=== PATIENT | female | born 1940 | race Hispanic/Latino ===

== ENCOUNTER 2018-07-06 21:21 | Emergency (ER) | payer MEDICARE ==
[2018-07-06 22:27] LABS: Urine Blood NEGATIVE (NEG); Urine Glucose NEGATIVE (NEG); Urine Protein NEGATIVE (NEG); Urine Specific Gravity >1.030 (1.005-1.030); Urine pH 5.5 (5.0-7.0)
[2018-07-06 22:50] LABS: Absolute Lymphocytes (CBC) 1.8 K/uL (0.7-4.9); Absolute Monocytes 0.4 K/uL (0.1-1.3); Absolute Neutrophil 3.3 K/uL (1.8-8.0); Basophils % 0.3 % (0-1.3); Eosinophils % 4.4 % (0-4.4); Hematocrit 40.7 % (36.0-45.0); Lymphocytes % 30.9 % (15.3-44.8); MPV 9.5 fL (7.6-11.3); Monocytes % 6.5 % (3.3-12.3); Protime INR 0.97; RBC Red Blood Cell Count 4.87 M/uL (3.86-4.86)
[2018-07-06] MEDS ORDERED: ASPIRIN 81 MG CHEWABLE TABLET ONE (22:54)
[2018-07-06 23:12] LABS: ALT/SGPT 16 U/L (12-78); AST/SGOT 14 U/L (15-37); Albumin 3.8 g/dL (3.4-5.0); Alkaline Phosphatase 72 U/L (45-117); BUN Blood Urea Nitrogen 22 mg/dL (7-18); Bicarbonate 24 mmol/L (21-32); Bilirubin Direct 0.2 mg/dL (0-0.2); Bilirubin Total 0.5 mg/dL (0.2-1.0); Glucose Level 111 mg/dL (74-106); Magnesium 2.1 mg/dL (1.8-2.4); NT PRO-BNP 183 pg/mL (<450); Protein, Total 7.3 g/dL (6.4-8.2); Sodium Level 143 mmol/L (136-145); Troponin (Emerg Dept Use Only) < 0.02 ng/mL (0.0-0.045)
--- NOTE | 2018-07-07 00:13 | EDPHYS ---
Physician Documentation [facility] Name: Ruthie Smith Age: 77 yrs Sex: Female : 1940 Arrival Date: 07/06/2018 Time: 21:23 Bed 17 Private MD: Zeyad Ma C ED Physician Ronal Reece HPI: 07/06 22:36 This 77 yrs old Female presents to ER via Ambulatory with complaints of Flank snw Pain - radiating to one side to other. 22:36 The patient complains of pain in the left subscapular area and right subscapular area. snw The pain does not radiate. Onset: The symptoms/episode began/occurred suddenly, just prior to arrival. Associated signs and symptoms: Pertinent positives: nausea, shortness of breath. Severity of pain: At its worst the pain was moderate severe. The patient has not experienced similar symptoms in the past. It is unknown whether or not the patient has recently seen a physician. pt states she was in her shower and had a sudden onset of pain under bilateral breast, through to back and shortness of breath. Historical: - Allergies: 21:40 Azithromycin; ch 21:40 Codeine; ch 21:40 Levofloxacin; ch 21:40 Vicodin; ch - PMHx: 21:40 Hypertension; Thyroid problem; COPD; sepsis-uro; urinary; UTI; ch - Immunization history:: Adult Immunizations up to date, Flu vaccine is up to date. - Social history:: Smoking status: Patient/guardian denies using tobacco. - Ebola Screening: : Patient negative for fever greater than or equal to 101.5 degrees Fahrenheit, and additional compatible Ebola Virus Disease symptoms Patient denies exposure to infectious person Patient denies travel to an Ebola-affected area in the 21 days before illness onset No symptoms or risks identified at this time. ROS: 22:36 Constitutional: Negative for fever, chills, and weight loss, Eyes: Negative for injury, snw pain, redness, and discharge, ENT: Negative for injury, pain, and discharge, Neck: Negative for injury, pain, and swelling, Cardiovascular: Negative for chest pain, palpitations, and edema. 22:36 : Negative for injury, bleeding, discharge, and swelling, MS/Extremity: Negative for injury and deformity, Skin: Negative for injury, rash, and discoloration, Neuro: Negative for headache, weakness, numbness, tingling, and seizure. 22:36 Respiratory: Positive for shortness of breath, at rest. 22:36 Abdomen/GI: Positive for abdominal pain, nausea, severe pain circumferential upper abdominal pain. 22:36 Back: Positive for radiated pain. Exam: 22:39 Head/Face: Normocephalic, atraumatic. Eyes: Pupils equal round and reactive to light, snw extra-ocular motions intact. Lids and lashes normal. Conjunctiva and sclera are non-icteric and not injected. Cornea within normal limits. Periorbital areas with no swelling, redness, or edema. ENT: Nares patent. No nasal discharge, no septal abnormalities noted. Tympanic membranes are normal and external auditory canals are clear. Oropharynx with no redness, swelling, or masses, exudates, or evidence of obstruction, uvula midline. Mucous membranes moist. Neck: Trachea midline, no thyromegaly or masses palpated, and no cervical lymphadenopathy. Supple, full range of motion without nuchal rigidity, or vertebral point tenderness. No Meningismus. Chest/axilla: Normal chest wall appearance and motion. Nontender with no deformity. No lesions are appreciated. Cardiovascular: Regular rate and rhythm with a normal S1 and S2. No gallops, murmurs, or rubs. Normal PMI, no JVD. No pulse deficits. Respiratory: Lungs have equal breath sounds bilaterally, clear to auscultation and percussion. No rales, rhonchi or wheezes noted. No increased work of breathing, no retractions or nasal flaring. Abdomen/GI: Soft, non-tender, with normal bowel sounds. No distension or tympany. No guarding or rebound. No evidence of tenderness throughout. Back: No spinal tenderness. No costovertebral tenderness. Full range of motion. Skin: Warm, dry with normal turgor. Normal color with no rashes, no lesions, and no evidence of cellulitis. MS/ Extremity: Pulses equal, no cyanosis. Neurovascular intact. Full, normal range of motion. Neuro: Awake and alert, GCS 15, oriented to person, place, time, and situation. Cranial nerves II-XII grossly intact. Motor strength 5/5 in all extremities. Sensory grossly intact. Cerebellar exam normal. Normal gait. 22:39 Constitutional: The patient appears alert, anxious. Vital Signs: 21:40 BP 103 / 76; Pulse 81; Resp 22; Temp 98.6; Pulse Ox 99% on R/A; Weight 90.72 kg; Height ch 5 ft. 7 in. (170.18 cm); Pain 6/10; 23:00 BP 118 / 64; Pulse 74; Resp 15; Pulse Ox 99% ; Pain 5/10; rr5 07/07 00:00 BP 110 / 62; Pulse 79; Resp 15; Pulse Ox 100% on R/A; Pain 2/10; rr5 00:59 BP 118 / 60; Pulse 81; Resp 17; Temp 98.9; Pulse Ox 99% on R/A; rr5 07/06 21:40 Body Mass Index 31.32 (90.72 kg, 170.18 cm) ch MDM: 07/06 22:05 Patient medically screened. snw 07/07 00:14 Data reviewed: vital signs, nurses notes. Data interpreted: Pulse oximetry: on room air snw is 99 %. Interpretation: normal. Counseling: I had a detailed discussion with the patient and/or guardian regarding: the historical points, exam findings, and any diagnostic results supporting the discharge/admit diagnosis, lab results, radiology results, the need for outpatient follow up, to return to the emergency department if symptoms worsen or persist or if there are any questions or concerns that arise at home. Special discussion: Based on the history and exam findings, there is no indication for further emergent testing or inpatient evaluation. I discussed with the patient/guardian the need to see the primary care provider for further evaluation of the symptoms. I discussed with the patient/guardian the need to see the design editor for further evaluation of the symptoms. 07/06 21:51 Order name: Basic Metabolic Panel snw 07/06 21:51 Order name: CBC with Diff w 07/06 21:51 Order name: LFT's snw 07/06 21:51 Order name: Magnesium; Complete Time: 23:14 snw 07/06 21:51 Order name: NT PRO-BNP; Complete Time: 23:14 snw 07/06 21:51 Order name: PT-INR; Complete Time: 23:09 snw 07/06 21:51 Order name: Troponin (emerg Dept Use Only); Complete Time: 23:14 snw 07/06 21:51 Order name: XRAY Chest (1 view) snw 07/06 21:51 Order name: Blood Culture Adult (2) snw 07/06 21:53 Order name: Basic Metabolic Panel; Complete Time: 23:14 EDMS 07/06 21:53 Order name: CBC with Automated Diff; Complete Time: 23:09 EDMS 07/06 21:53 Order name: Liver (Hepatic) Function; Complete Time: 23:14 EDID 07/06 22:13 Order name: Urine Dipstick--Ancillary (enter results); Complete Time: 22:30 co5 07/06 23:11 Order name: CT Chest For PE Angio snw 07/06 21:51 Order name: EKG; Complete Time: 21:54 snw 07/06 21:51 Order name: Cardiac monitoring; Complete Time: 22:42 w 07/06 21:51 Order name: EKG - Nurse/Tech; Complete Time: 22:42 w 07/06 21:51 Order name: IV Saline Lock; Complete Time: 22:42 w 07/06 21:51 Order name: Labs collected and sent; Complete Time: 22:43 w 07/06 21:51 Order name: O2 Per Protocol; Complete Time: 22:43 w 07/06 21:51 Order name: O2 Sat Monitoring; Complete Time: 22:43 w 07/06 22:10 Order name: Urine Dipstick-Ancillary (obtain specimen); Complete Time: 22:10 rr5 Administered Medications: 07/06 22:50 Drug: Aspirin Chewable Tablet 324 mg Route: PO; rr5 07/07 00:00 Follow up: Response: No adverse reaction rr5 00:32 Drug: Rocephin 1 grams Route: IV; Rate: calculated rate; Site: right forearm; rr5 01:01 Follow up: Response: No adverse reaction; IV Status: Completed infusion; IV Intake: [id number] Disposition: 01:13 Co-signature as Attending Physician, oRnal Reece MD. rn Disposition: 07/07/18 00:12 Discharged to Home. Impression: Alveolitis. - Condition is Stable. - Discharge Instructions: Pneumonitis. - Prescriptions for cefdinir 300 mg Oral capsule - take 2 capsule by ORAL route once daily; 20 capsule. - Medication Reconciliation Form, Thank You Letter, Antibiotic Education, Prescription Opioid Use form. - Follow up: Zeyad Ma MD; When: 2 - 3 days; Reason: Recheck today's complaints, Continuance of care, Re-evaluation by your physician. Follow up: Emergency Department; When: As needed; Reason: Worsening of condition. Signatures: Dispatcher [employer] EDMS Savannah So RN RN Yary Hinson, DIRECTOR EMPLOYEE COMMUNICATIONS-C DIRECTOR EMPLOYEE COMMUNICATIONS-Csnw Ronal Reece MD MD rn Roque, Raymond, RN RN rr5 Corrections: (The following items were deleted from the chart) 01:01 00:12 07/07/2018 00:12 Discharged to Home. Impression: Alveolitis. Condition is Stable. rr5 Forms are Medication Reconciliation Form, Thank You Letter, Antibiotic Education, Prescription Opioid Use. Follow up: Zeyad Ma; When: 2 - 3 days; Reason: Recheck today's complaints, Continuance of care, Re-evaluation by your physician. Follow up: Emergency Department; When: As needed; Reason: Worsening of condition. snw
--- NOTE | 2018-07-07 00:13 | ER ---
Nurse's Notes [facility] Name: Ruthie Smith Age: 77 yrs Sex: Female : 1940 Arrival Date: 07/06/2018 Time: 21:23 Bed 17 Private MD: Zeyad Ma C Diagnosis: Alveolitis Presentation: 07/06 21:38 Presenting complaint: Patient states: pain on my sides, both of them, radiating around ch under my breasts and to my back. started a couple hours ago. Transition of care: patient was not received from another setting of care. Onset of symptoms was July 06, 2018 at 19:00. Risk Assessment: Do you want to hurt yourself or someone else? Patient reports no desire to harm self or others. Initial Sepsis Screen: Does the patient meet any 2 criteria? No. Patient's initial sepsis screen is negative. Does the patient have a suspected source of infection? No. Patient's initial sepsis screen is negative. Care prior to arrival: None. 21:38 Method Of Arrival: Ambulatory 21:38 Acuity: TOLU 3 ch Triage Assessment: 21:40 General: Appears in no apparent distress. comfortable, Behavior is calm, cooperative, ch appropriate for age. Pain: Complains of pain in chest, posterior aspect of right lateral abdomen, anterior aspect of right lateral abdomen, posterior aspect of left lateral abdomen, anterior aspect of left lateral abdomen, right upper quadrant and left upper quadrant Pain currently is 6 out of 10 on a pain scale. Historical: - Allergies: 21:40 Azithromycin; ch 21:40 Codeine; ch 21:40 Levofloxacin; 21:40 Vicodin; ch - PMHx: 21:40 Hypertension; Thyroid problem; COPD; sepsis-uro; urinary; UTI; ch - Immunization history:: Adult Immunizations up to date, Flu vaccine is up to date. - Social history:: Smoking status: Patient/guardian denies using tobacco. - Ebola Screening: : Patient negative for fever greater than or equal to 101.5 degrees Fahrenheit, and additional compatible Ebola Virus Disease symptoms Patient denies exposure to infectious person Patient denies travel to an Ebola-affected area in the 21 days before illness onset No symptoms or risks identified at this time. Screenin:41 Abuse screen: Denies threats or abuse. Denies injuries from another. Nutritional rr5 screening: No deficits noted. Tuberculosis screening: No symptoms or risk factors identified. Fall Risk None identified. Assessment: 21:40 General: Appears in no apparent distress. uncomfortable, Behavior is calm, cooperative, rr5 appropriate for age. 21:40 Pain: Complains of pain in abdomen Pain radiates to back Pain currently is 7 out of 10 rr5 on a pain scale. Quality of pain is described as aching, Pain began gradually, Is intermittent. Neuro: Level of Consciousness is awake, alert, obeys commands, Oriented to person, place, time, situation, Appropriate for age. Cardiovascular: Capillary refill < 3 seconds Patient's skin is warm and dry. Respiratory: Airway is patent Respiratory effort is even, unlabored, Respiratory pattern is regular, symmetrical. GI: Abdomen is round Reports upper abdominal pain, radiates to back. : No signs and/or symptoms were reported regarding the genitourinary system. EENT: No signs and/or symptoms were reported regarding the EENT system. Derm: Skin is intact, Skin temperature is warm. Musculoskeletal: Capillary refill < 3 seconds, Range of motion: intact in all extremities. 23:00 Reassessment: Patient appears in no apparent distress at this time. Patient is alert, rr5 oriented x 3, equal unlabored respirations, skin warm/dry/pink. Patient states symptoms have improved. 23:35 Reassessment: Patient appears in no apparent distress at this time. Patient is alert, rr5 oriented x 3, equal unlabored respirations, skin warm/dry/pink. went to CT scan. 07/07 00:00 Reassessment: Patient appears in no apparent distress at this time. Patient is alert, rr5 oriented x 3, equal unlabored respirations, skin warm/dry/pink. awaiting for Ct result. 00:57 Reassessment: Patient appears in no apparent distress at this time. Patient is alert, rr5 oriented x 3, equal unlabored respirations, skin warm/dry/pink. discharge instruction given and explained without complaints made. Vital Signs: 07/06 21:40 BP 103 / 76; Pulse 81; Resp 22; Temp 98.6; Pulse Ox 99% on R/A; Weight 90.72 kg; Height ch 5 ft. 7 in. (170.18 cm); Pain 6/10; 23:00 BP 118 / 64; Pulse 74; Resp 15; Pulse Ox 99% ; Pain 5/10; rr5 07/07 00:00 BP 110 / 62; Pulse 79; Resp 15; Pulse Ox 100% on R/A; Pain 2/10; rr5 00:59 BP 118 / 60; Pulse 81; Resp 17; Temp 98.9; Pulse Ox 99% on R/A; rr5 07/06 21:40 Body Mass Index 31.32 (90.72 kg, 170.18 cm) ED Course: 07/06 21:23 Patient arrived in ED. am2 21:23 Zeyad Ma MD is Private Physician. am2 21:32 Steven Greene, MARIO is Primary Nurse. rr5 21:39 Triage completed. ch 21:40 Arm band placed on left wrist. Patient placed in an exam room, on a stretcher, on pulse ch oximetry. 21:50 Yary Berrios FNP-C is PHCP. snw 21:50 Ronal Reece MD is Attending Physician. snw 22:00 Patient has correct armband on for positive identification. Placed in gown. Bed in low rr5 position. Call light in reach. Side rails up X2. youth agent on. Pulse ox on. NIBP on. 22:13 XRAY Chest (1 view) In Process Unspecified. EDMS 22:30 Inserted saline lock: 22 gauge in right forearm, using aseptic technique. Blood rr5 collected. 22:30 Initial lab(s) drawn, by me, sent to lab. First set of blood cultures drawn by me. rr5 07/07 00:11 Zeyad Ma MD is Referral Physician. snw 00:14 CT Chest For PE Angio In Process Unspecified. EDMS 00:59 No provider procedures requiring assistance completed. IV discontinued, intact, rr5 bleeding controlled, No redness/swelling at site. Pressure dressing applied. Administered Medications: 07/06 22:50 Drug: Aspirin Chewable Tablet 324 mg Route: PO; rr5 07/07 00:00 Follow up: Response: No adverse reaction rr5 00:32 Drug: Rocephin 1 grams Route: IV; Rate: calculated rate; Site: right forearm; rr5 01:01 Follow up: Response: No adverse reaction; IV Status: Completed infusion; IV Intake: [id number] Intake: 01:01 IV: 10ml; Total: 10ml. rr5 Outcome: 00:12 Discharge ordered by . snw 00:59 Discharged to home ambulatory, with family. rr5 00:59 Condition: stable 00:59 Discharge instructions given to patient, family, Instructed on discharge instructions, follow up and referral plans. medication usage, Demonstrated understanding of instructions, follow-up care, medications, Prescriptions given X 1. 01:01 Patient left the ED. rr5 Signatures: Dispatcher [employer] EDSavannah Corea, RN RN Yary Berrios, SENIOR INFORMATION SECURITY ENGINEER-C SENIOR INFORMATION SECURITY ENGINEER-Csnw Farrah Fatima Raymond, RN RN rr5
[2018-07-07] MEDS ORDERED: CEFTRIAXONE/SWI 1gm 1 GM/10 ML SYR ONE (00:40)
[2018-07-07 01:16] VITALS: BP 118/60; TEMP 98.9; O2SAT 99
--- OUTSIDE RECORDS SUMMARY | 2018-07-07 12:39 | XMS REPORT ---
:1940 [facility] Address [address] [place] [address] [address] [place] [address] Care Team Providers Name Role Phone Unavailable Unavailable Unavailable Problems This patient has no known problems. Allergies, Adverse Reactions, Alerts This patient has no known allergies or adverse reactions. Medications This patient has no known medications.
--- NOTE | 2018-07-07 13:08 | RAD REPORT ---
EXAM DESCRIPTION: CT - Chest For Pe Angio - 07/07/2018 11:43 am CLINICAL HISTORY: Chest pain COMPARISON: None. TECHNIQUE: Dynamically enhanced axial 3 mm thick images of the chest were obtained during administra tion of <100> mL Isovue 370 IV contrast. Coronal and oblique reconstruction images were generated and reviewed. Exam utilizes a protocol for optimal evaluation of pulmonary arterial tree. Maximum intensity projections 3D imaging was utilized All CT scans are performed using dose optimization technique as appropriate and may include automated exposure control or mA/KV adjustment according to patient size. FINDINGS: A pulmonary embolus is not seen. The main pulmonary artery is enlarged A thoracic aortic aneurysm is not noted. A pleural effusion is not seen. A pericardial effusion is not seen. Mild bilateral ground-glass opacities within the lungs. IMPRESSION: Negative for a pulmonary embolism. 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
--- NOTE | 2018-07-08 08:42 | EKG ---
Test Date: 2018-07-06 Test Time: 22:04:48 Balance Sheet Analyst: RR MEASUREMENT RESULTS: Intervals: Rate: 84 NM: 166 QRSD: 90 QT: 394 QTc: 465 [place]: P: 18 NM: 166 QRS: 100 T: 64 INTERPRETIVE STATEMENTS: Normal sinus rhythm Possible Left atrial enlargement Rightward axis Anterior infarct, age undetermined Abnormal ECG Compared to ECG 11/26/2015 07:34:28 Right-axis deviation now present Left-axis deviation no longer present Myocardial infarct finding still present Electronically Signed On 07-08-18 08:40:30 CDT by Bud Anderson
--- NOTE | 2018-07-08 11:00 | RAD REPORT ---
EXAM DESCRIPTION: Kalpana Single View07/07/2018 11:43 am CLINICAL HISTORY: Chest pain COMPARISON: 2015 FINDINGS: Mild bilateral pulmonary opacities. Heart is mildly enlarged IMPRESSION: Mild bilateral pulmonary opacities may represent mild interstitial pulmonary edema
== END 2018-07-07 01:01 | disposition home or self-care (01) ==
LOC: ER 21:21
DX: J67.9 Hypersensitivity pneumonitis due to unspecified organic dust (principal); Z88.6 Allergy status to analgesic agent; Z88.1 Allergy status to other antibiotic agents
CPT/HCPCS: 96365; 93005; 87040 ×2; 85025; 80048; 36415; 83735; 85610; 80076; 81003; 84484; 83880; 71275; 71045; 99284; Q9967; J0696

== ENCOUNTER 2020-01-30 00:04 | Emergency (ER) | payer MEDICARE ==
--- OUTSIDE RECORDS SUMMARY | 2020-01-30 00:06 | XMS REPORT | Continuity of Care Document ---
:1940 Author Organization [facility] t Address [address] [place] [address] Care Team Providers Name Role Phone Doctor Unassigned, Name Attending Clinician Unavailable Mary WHITLOCK Attending Clinician Problems Condition Condition Condition Status Onset Resolution Last Treating Co mments Source Name Details Category Date Date Treatment Clinician Date Recurrent Recurrent Diagnosis Active [facility] UTI [facility]TI [facility] - (urinary (urinary Memori a tract tract l infection) infection) [facility] Clinics Stress Stress Diagnosis Active [facility] incontin[facility] incontinen Ruby kes - ce ce [facility] l [facility] Clinics Allergies, Adverse Reactions, Alerts Allergy Allergy Status Severity Reaction(s) Onset Inactive Treating Comm ents Source Name Type Date Date Clinician Vicodin Adverse Active Info Not [facility] Reaction Available [facility] Levaquin Adverse Active rash [facility] Reaction [facility] Azithrom Adverse Active Info Not [facility] ycin Reaction Available [facility] codeine Adverse Active Info Not [facility] Reaction Available [facility] Medications Ordered Filled Start Stop Current Ordering Indication Dosage Frequency Signature Comments Components Source Medication Medication Date Date Medication? Clinician (SIG) Name Name Nitrofurant Nitrofurant 2020-0 2020- No [place] [address] [facility] oin Monohyd oin Monohyd 7-27 10-25 [place] at bedtime [facility] - Macro Macro 00:00: 00:00 with food Memor ia 00 :00 l [facility] Clinics Vitamin B Vitamin B Yes [place] as [facility] 12 12 [place] directed [facility] - [facility]ics Boniva Boniva Yes [place] [address] [facility] [place] [facility] Dexilant Dexilant Yes [place] [address] [place] [facility] Caltrate Caltrate Yes [place] [address] 600+D3 600+D3 [place] with a [facility] - meal Memoria l [facility]ics Levothyroxi Levothyroxi Yes [place] [address] [facility] ne Sodium ne Sodium [place] in the [facility] - morning on Memoria an empty l stomach [facility]ics Rosuvastati Rosuvastati Yes [place] [address] [facility] n Calcium n Calcium [place]ireille L ukes - Memoria l [facility] ent Clinics Nitrofurant Nitrofurant Yes [place] [address] oin oin [place] with food [facility] - Macrocrysta Macrocrysta or milk Memoria l l l [facility] Clinics Advair Advair Yes [place] [address] [address] Diskus Diskus [place] [facility] Clinics Procedures This patient has no known procedures. Encounters Start End Encounter Admission Attending Care Care Encounter Source Date/Time Date/Time Type Type Clinicians Facility Department ID 2019-09-04 2019-09-04 Outpatient Juan Manuel Lilly [id number] [facility] 15:45:00 15:45:00 t Specialty/U Ruby kes - Specialty rology [facility] a /Urology Clinic l Clinic [facility] 2019-04-27 2019-04-27 Outpatient Juan Manuel Zambranot [id number] [facility] 09:30:00 09:30:00 t Specialty/U Ruby kes - Specialty rology [facility] a /Urology Clinic l Clinic [facility] 2019-04-27 2019-04-27 Orders Doctor BAUGH [id number] 00:00:00 00:00:00 Only UnassMARGI alva [id number] Lithium [facility] [id number] 2019-04-21 2019-04-21 Telephone EZEQUIEL Hernandez [id number] 00:00:00 00:00:00 Reji SPECIALTY [id number] CARE [id number] CENTER AT [id number] JOSELYN Gonzalez8 [facility] 2019-04-20 2019-04-20 Office EZEQUIEL Hernandez [id number] 08:05:41 09:17:43 Visit Reji SPECIALTY [id number] CARE [id number] CENTER AT [id number] JOSELYN Hill [facility] 2019-03-27 2019-03-27 Orders Doctor LUPIS [id number] 00:00:00 00:00:00 Only Unassigned, MARGI [id number] Lithium [facility] [id number] Results This patient has no known results.
[2020-01-30] MEDS ORDERED: ONDANSETRON 4 MG/2 ML VIAL ONE (01:20)
[2020-01-30] MEDS ORDERED: NA CHLORIDE 0.9% 1,000 ML ONE (01:20)
[2020-01-30 01:22] LABS: Protime INR 0.89
[2020-01-30 01:24] LABS: Absolute Lymphocytes (CBC) 4.2 K/uL (0.7-4.9); Basophils % 0.4 % (0-1.3); Hematocrit 40.9 % (36.0-45.0); Lymphocytes % 52.3 % (15.3-44.8); MPV 10.6 fL (7.6-11.3)
[2020-01-30 01:37] LABS: ALT/SGPT 16 U/L (12-78); AST/SGOT 19 U/L (15-37); Albumin 4.2 g/dL (3.4-5.0); Alkaline Phosphatase 75 U/L (45-117); BUN Blood Urea Nitrogen 19 mg/dL (7-18); Bicarbonate 26 mmol/L (21-32); Bilirubin Direct 0.1 mg/dL (0-0.2); Bilirubin Total 0.4 mg/dL (0.2-1.0); Glucose Level 95 mg/dL (74-106); Magnesium 2.4 mg/dL (1.8-2.4); NT PRO-BNP 225 pg/mL (<450); Protein, Total 7.6 g/dL (6.4-8.2); Sodium Level 142 mmol/L (136-145); Troponin (Emerg Dept Use Only) < 0.02 ng/mL (0.0-0.045)
[2020-01-30 02:01] LABS: Blood Morphology Comment NOT SEEN (NOT SEEN); Platelet Estimate DECR
--- NOTE | 2020-01-30 03:11 | EDPHYS ---
Physician Documentation [facility] Name: Ruthie Smith Age: 79 yrs Sex: Female : 1940 Arrival Date: 01/30/2020 Time: 00:06 Bed 4 Private MD: ED Physician Morris Darling HPI: 01/29 01:43 This 79 yrs old Female presents to ER via Ambulatory with complaints of High ma2 Blood Pressure. 01:43 The patient has elevated blood pressure and discovered this at home. Onset: The ma2 symptoms/episode began/occurred gradually, 1 day(s) ago. Associated signs and symptoms: Pertinent negatives: dizziness, dyspnea, headache, lightheadedness, nausea, visual changes, vomiting. Severity of symptoms: At its worst the blood pressure was moderate, in the emergency department the blood pressure is unchanged. The patient has not experienced similar symptoms in the past. Historical: - Allergies: 00:37 Azithromycin; rr5 00:37 Codeine; rr5 00:37 Levofloxacin; rr5 00:37 Vicodin; rr5 - Home Meds: 00:37 losartan 50 mg oral tab 1 tab once daily [Active]; rr5 - PMHx: 00:37 COPD; Hypertension; sepsis-uro; urinary; Thyroid problem; UTI; rr5 - PSHx: 00:37 bladder surgery; rr5 - Immunization history:: Adult Immunizations up to date. - Social history:: Smoking status: Patient/guardian denies using tobacco, Patient/guardian denies using alcohol, street drugs. - Family history:: not pertinent. ROS: 01:43 Constitutional: Negative for fever, chills, and weight loss. ma2 01:43 All other systems are negative. Exam: 01:43 Constitutional: This is a well developed, well nourished patient who is awake, alert, ma2 and in no acute distress. Head/Face: Normocephalic, atraumatic. Eyes: Pupils equal round and reactive to light, extra-ocular motions intact. Lids and lashes normal. Conjunctiva and sclera are non-icteric and not injected. Cornea within normal limits. Periorbital areas with no swelling, redness, or edema. ENT: Nares patent. No nasal discharge, no septal abnormalities noted. Tympanic membranes are normal and external auditory canals are clear. Oropharynx with no redness, swelling, or masses, exudates, or evidence of obstruction, uvula midline. Mucous membranes moist. Neck: Trachea midline, no thyromegaly or masses palpated, and no cervical lymphadenopathy. Supple, full range of motion without nuchal rigidity, or vertebral point tenderness. No Meningismus. Chest/axilla: Normal chest wall appearance and motion. Nontender with no deformity. No lesions are appreciated. Cardiovascular: Regular rate and rhythm with a normal S1 and S2. No gallops, murmurs, or rubs. Normal PMI, no JVD. No pulse deficits. Respiratory: Lungs have equal breath sounds bilaterally, clear to auscultation and percussion. No rales, rhonchi or wheezes noted. No increased work of breathing, no retractions or nasal flaring. Abdomen/GI: Soft, non-tender, with normal bowel sounds. No distension or tympany. No guarding or rebound. No evidence of tenderness throughout. Back: No spinal tenderness. No costovertebral tenderness. Full range of motion. Skin: Warm, dry with normal turgor. Normal color with no rashes, no lesions, and no evidence of cellulitis. MS/ Extremity: Pulses equal, no cyanosis. Neurovascular intact. Full, normal range of motion. Neuro: Awake and alert, GCS 15, oriented to person, place, time, and situation. Cranial nerves II-XII grossly intact. Motor strength 5/5 in all extremities. Sensory grossly intact. Cerebellar exam normal. Normal gait. Vital Signs: 00:32 BP 168 / 91; Pulse 82; Resp 19; Temp 97.9; Pulse Ox 99% ; Weight 90.72 kg; Height 5 ft. rr5 7 in. (170.18 cm); Pain 5/10; 01:45 BP 133 / 43; Pulse 70; Resp 16; Pulse Ox 99% ; rr5 02:30 BP 128 / 87; Pulse 62; Resp 18; Pulse Ox 98% on R/A; ea 03:27 BP 129 / 83; Pulse 78; Resp 18; Pulse Ox 98% ; ea 00:32 Body Mass Index 31.32 (90.72 kg, 170.18 cm) rr5 MDM: 00:20 Patient medically screened. ma2 01:43 Differential diagnosis: essential htn. ma2 03:10 Data reviewed: vital signs, nurses notes. Counseling: I had a detailed discussion with [facility] the patient and/or guardian regarding: the historical points, exam findings, and any diagnostic results supporting the discharge/admit diagnosis, the presence of at least one elevated blood pressure reading (>120/80) during this emergency department visit, the need for outpatient follow up. Response to treatment: the patient's symptoms have resolved after treatment. 01/29 01:27 Order name: Protime (+INR); Complete Time: 45 EDMS 01/29 01:27 Order name: CBC with Automated Diff EDMS 01/29 01:37 Order name: Basic Metabolic Panel; Complete Time: :44 EDMS 01/29 01:37 Order name: Liver (Hepatic) Function; Complete Time: EDMS 01/29 01:37 Order name: Troponin (Emerg Dept Use Only); Complete Time: EDMS 01/29 01:37 Order name: NT PRO-BNP; Complete Time: 45 EDMS 01/29 01:37 Order name: Magnesium; Complete Time: 45 EDMS 01/29 00:20 Order name: XRAY Chest (1 view) [facility] 01/29 00:20 Order name: EKG; Complete Time: 02:05 [facility] 01/29 00:20 Order name: Cardiac monitoring; Complete Time: 00:40 [facility] 01/29 00:20 Order name: EKG - Nurse/Tech; Complete Time: 00:40 [facility] 01/29 00:20 Order name: IV Saline Lock; Complete Time: 00:40 [facility] 01/29 00:20 Order name: Labs collected and sent; Complete Time: 00:40 [facility] 01/29 00:20 Order name: O2 Per Protocol; Complete Time: 00:40 [facility] 01/29 00:20 Order name: O2 Sat Monitoring; Complete Time: 00:40 [facility] 01/29 01:02 Order name: CT Head Brain wo Cont [facility] 01/29 02:01 Order name: Manual Differential [facility] 01/29 02:14 Order name: Slides for Pathologist Review EDWA Administered Medications: 01:09 Drug: Zofran (Ondansetron) 4 mg Route: IVP; Site: right hand; ea 01:17 Drug: NS 0.9% 1000 ml Route: IV; Rate: 1 bolus; Site: right wrist; ea Disposition: 12/22/20 03:11 Discharged to Home. Impression: Essential (primary) hypertension. - Condition is Stable. - Discharge Instructions: Hypertension. - Prescriptions for Reglan 10 mg Oral Tablet - take 1 tablet by ORAL route every 6 hours . take 30 minutes before meals as needed for headache; 100 tablet. - Family Work Release, Medication Reconciliation Form, Thank You Letter, Antibiotic Education, Prescription Opioid Use form. - Follow up: Private Physician; When: Tomorrow; Reason: Continuance of care. Follow up: Gilles Ma MD; When: Tomorrow; Reason: If symptoms return. Signatures: Dispatcher [employer] EDMeagan Rider RN Morris Burns ea, MD MD ma2 Steven Greene RN RN rr5 Corrections: (The following items were deleted from the chart) 02:17 02:05 BASIC METABOLIC PANEL+C.LAB.BRZ ordered. EDMS EDMS 02:17 02:05 CBC+H.LAB.BRZ ordered. EDMS EDMS 02:17 02:05 HEPATIC FUNCTION+C.LAB.BRZ ordered. EDMS EDMS 02:17 02:05 MAGNESIUM+C.LAB.BRZ ordered. EDMS EDMS 02:17 02:05 PROBNP+C.LAB.BRZ ordered. EDMS EDMS 02:17 02:05 PROTIME (+INR)+COAG.LAB.BRZ ordered. EDMS EDMS 02:17 02:05 TROPONIN (EMERG DEPT USE ONLY)+C.LAB.BRZ ordered. EDWA EDMS 03:52 03:11 01/30/2020 03:11 Discharged to Home. Impression: Essential (primary) ea hypertension. Condition is Stable. Forms are Medication Reconciliation Form, Thank You Letter, Antibiotic Education, Prescription Opioid Use. Follow up: Private Physician; When: Tomorrow; Reason: Continuance of care. Follow up: Gilles Ma; When: Tomorrow; Reason: If symptoms return. ashkan
--- NOTE | 2020-01-30 03:11 | ER ---
Nurse's Notes [facility] Name: Ruthie Smith Age: 79 yrs Sex: Female : 1940 Arrival Date: 01/30/2020 Time: 00:06 Bed 4 Private MD: Diagnosis: Essential (primary) hypertension Presentation: 01/29 00:32 Chief complaint: Patient states: my BP is high around 8 Pm I checked its 180/87 mmHg I rr5 took losartan 50mg then 10pm its 200/100 it never went down since then. I feel nauseous, mild dizziness and chest pain. yesterday I started to have cough and sore throat. Coronavirus screen: cough unrelated to allergies, sore throat, Client presents with at least one sign or symptom that may indicate coronavirus-19. Standard/surgical mask placed on the client. Provider contacted for isolation considerations. Ebola Screen: Patient negative for fever greater than or equal to 101.5 degrees Fahrenheit, and additional compatible Ebola Virus Disease symptoms Patient denies exposure to infectious person. Patient denies travel to an Ebola-affected area in the 21 days before illness onset. Initial Sepsis Screen: Does the patient meet any 2 criteria? No. Patient's initial sepsis screen is negative. Does the patient have a suspected source of infection? No. Patient's initial sepsis screen is negative. Risk Assessment: Do you want to hurt yourself or someone else? Patient reports no desire to harm self or others. Onset of symptoms was January 30, 2020. Care prior to arrival: Medication(s) given: losartan. 00:32 Method Of Arrival: Ambulatory rr5 00:32 Acuity: TOLU 3 rr5 Historical: - Allergies: 00:37 Azithromycin; rr5 00:37 Codeine; rr5 00:37 Levofloxacin; rr5 00:37 Vicodin; rr5 - Home Meds: 00:37 losartan 50 mg oral tab 1 tab once daily [Active]; rr5 - PMHx: 00:37 COPD; Hypertension; sepsis-uro; urinary; Thyroid problem; UTI; rr5 - PSHx: 00:37 bladder surgery; rr5 - Immunization history:: Adult Immunizations up to date. - Social history:: Smoking status: Patient/guardian denies using tobacco, Patient/guardian denies using alcohol, street drugs. - Family history:: not pertinent. Screenin:50 Abuse screen: Denies threats or abuse. Nutritional screening: No deficits noted. ea Tuberculosis screening: No symptoms or risk factors identified. Fall Risk IV access (20 points). Assessment: 00:38 General: Appears in no apparent distress. uncomfortable, Behavior is calm, cooperative, rr5 appropriate for age, anxious. Pain: Complains of pain in chest Pain currently is 5 out of 10 on a pain scale. Quality of pain is described as aching, Pain began gradually, Is intermittent. Neuro: Level of Consciousness is awake, alert, obeys commands, Oriented to person, place, time, situation, Denies weakness numbness. Cardiovascular: Reports chest pain, high BP Capillary refill < 3 seconds Patient's skin is warm and dry. Respiratory: Reports cough that is Airway is patent Respiratory effort is even, unlabored, Respiratory pattern is regular, symmetrical. GI: Abdomen is round non-distended, Reports nausea. : No signs and/or symptoms were reported regarding the genitourinary system. EENT: No signs and/or symptoms were reported regarding the EENT system. Derm: Skin is intact, is healthy with good turgor, Skin temperature is warm. Musculoskeletal: Capillary refill < 3 seconds. 01:50 Reassessment: Patient and/or family updated on plan of care and expected duration. Pain ea level reassessed. Patient is alert, oriented x 3, equal unlabored respirations, skin warm/dry/pink. 02:30 Reassessment: Patient and/or family updated on plan of care and expected duration. Pain ea level reassessed. Patient is alert, oriented x 3, equal unlabored respirations, skin warm/dry/pink. 03:26 Reassessment: Patient and/or family updated on plan of care and expected duration. Pain ea level reassessed. Patient is alert, oriented x 3, equal unlabored respirations, skin warm/dry/pink. Discharge instruction given to patient, verbalized the understanding of instruction. Pt awaiting to speak to physician. Vital Signs: 00:32 BP 168 / 91; Pulse 82; Resp 19; Temp 97.9; Pulse Ox 99% ; Weight 90.72 kg; Height 5 ft. rr5 7 in. (170.18 cm); Pain 5/10; 01:45 BP 133 / 43; Pulse 70; Resp 16; Pulse Ox 99% ; rr5 02:30 BP 128 / 87; Pulse 62; Resp 18; Pulse Ox 98% on R/A; ea 03:27 BP 129 / 83; Pulse 78; Resp 18; Pulse Ox 98% ; ea 00:32 Body Mass Index 31.32 (90.72 kg, 170.18 cm) rr5 ED Course: 00:06 Patient arrived in ED. am2 00:20 Morris Darling MD is Attending Physician. ma2 00:20 Meagan Fang RN is Primary Nurse. ea 00:36 Triage completed. rr5 00:38 Arm band placed on right wrist. rr5 00:41 Inserted saline lock: 20 gauge in right hand, using aseptic technique. Blood collected. ea 00:50 Patient has correct armband on for positive identification. Placed in gown. Bed in low ea position. Call light in reach. Side rails up X2. 02:59 XRAY Chest (1 view) In Process Unspecified. EDMS 03:00 CT Head Brain wo Cont In Process Unspecified. EDMS 03:10 Gilles Ma MD is Referral Physician. ma2 03:21 No provider procedures requiring assistance completed. IV discontinued, intact, ea bleeding controlled, No redness/swelling at site. Pressure dressing applied. Administered Medications: 01:09 Drug: Zofran (Ondansetron) 4 mg Route: IVP; Site: right hand; ea 01:17 Drug: NS 0.9% 1000 ml Route: IV; Rate: 1 bolus; Site: right wrist; ea Outcome: 03:11 Discharge ordered by . ma2 03:22 Condition: stable ea 03:26 Discharge instructions given to patient, family, Instructed on discharge instructions, ea follow up and referral plans. medication usage, Demonstrated understanding of instructions, follow-up care, medications, Prescriptions given X 1. 03:52 Discharged to home ambulatory, with family. ea 03:52 Patient left the ED. ea Signatures: Dispatcher [employer] EDTX Farrah Fatima 2 Meagan Fang, RN Morris Burns ea, MD MD or2 Steven Greene RN RN rr5
--- NOTE | 2020-01-30 07:47 | RAD REPORT ---
EXAM DESCRIPTION: Kalpana Single View01/30/2020 2:59 am CLINICAL HISTORY: Hypertension COMPARISON: 2019 FINDINGS: The lungs appear clear of acute infiltrate. The heart is mildly enlarged. Patient is in a poor degree of inspiration
--- NOTE | 2020-01-30 12:41 | EKG ---
Test Date: 2020-01-30 Test Time: 00:35:06 Cytotechnologist/Histotechnologist: LA MEASUREMENT RESULTS: Intervals: Rate: 66 IA: 180 QRSD: 94 QT: 420 QTc: 440 [place]: P: 52 IA: 180 QRS: -30 T: 10 INTERPRETIVE STATEMENTS: Normal sinus rhythm Possible Left atrial enlargement Left axis deviation Possible Anterior infarct, age undetermined Abnormal ECG Compared to ECG 07/06/2018 22:04:48 Left-axis deviation now present Right-axis deviation no longer present Myocardial infarct finding still present Electronically Signed On 01-30-20 12:39:29 VET ASSISTANT by Jackson Gan
--- NOTE | 2020-01-30 14:27 | RAD REPORT ---
EXAM DESCRIPTION: CT - Head Brain Wo Cont - 01/30/2020 6:57 am CLINICAL HISTORY: DIZZINESS COMPARISON: 11/23/2018. TECHNIQUE: CT HEAD WITHOUT IV CONTRAST on 01/30/2020 1:02 AM DATABASE MARKETING ANALYST This exam was performed according to our departmental dose-optimization program, which includes autom ated exposure control, adjustment of the mA and/or kV according to patient size and/or use of iterati ve reconstruction technique. FINDINGS: There is no acute hemorrhage, mass effect or midline shift. Kwon-white differentiation is preserved. There is no hydrocephalus. There is mild bifrontal cerebral atrophy. The calvarium is intact. Orbits and globes are unremarkable. The paranasal sinuses are clear. Mastoid air cells are clear. IMPRESSION: No acute intracranial findings. Electronically signed by: Devonte Fraga MD 01/30/2020 3:11 AM DATABASE MARKETING ANALYST Due to temporary technical issues with the PACS/Fluency reporting system, reports are being signed by the in house radiologists without review as a courtesy to insure prompt reporting. The interpreting radiologist is fully responsible for the content of the report.
[2020-01-31 05:06] VITALS: TEMP 97.9
[2020-01-31 05:09] VITALS: O2SAT 98
[2020-01-31 05:10] VITALS: BP 129/83
== END 2020-01-30 03:52 | disposition home or self-care (01) ==
LOC: ER 00:04
DX: I10 Essential (primary) hypertension (principal); E07.9 Disorder of thyroid, unspecified; J44.9 Chronic obstructive pulmonary disease, unspecified; Z88.1 Allergy status to other antibiotic agents; Z88.5 Allergy status to narcotic agent
CPT/HCPCS: 93005; 85025; 80048; 36415; 83735; 85610; 80076; 84484; 83880; 70450; 71045; 96374; 99284; J7030; J2405

== ENCOUNTER 2020-08-23 15:20 | Emergency (ER) | payer MEDICARE ==
--- OUTSIDE RECORDS SUMMARY | 2020-08-23 15:23 | XMS REPORT | Continuity of Care Document ---
:1940 Author Organization [facility] t Address [address] [place] [address] Care Team Providers Name Role Phone Doctor Unassigned, Name Attending Clinician Unavailable Mary WHITLOCK Attending Clinician Problems This patient has no known problems. Allergies, Adverse Reactions, Alerts Allergy Allergy Status Severity Reaction(s) Onset Inactive Treating Comm ents Source Name Type Date Date Clinician Vicodin Adverse Active Info Not [facility] Levaquin Adverse Active rash [facility] Reaction [facility] Azithrom Adverse Active Info Not [facility] Reaction Available [facility] codeine Adverse Active Info Not [facility] Reaction Available [facility] Medications Ordered Filled Start Stop Current Ordering Indication Dosage Frequency Signature Comments Components Source Medication Medication Date Date Medication? Clinician (SIG) Name Name Nitrofurant Nitrofurant 2020-0 2020- No [place] [address] [facility] [address] oin Monohyd oin Monohyd 7 10-25 M[place] at bedtime [facility] Macro Macro 00:00: 00:00 with food Memor ia 00 :00 l [facility] Clinics Vitamin B Vitamin B Yes [place] as [facility] 12 [place] directed [facility] Boniva Boniva Yes [place] [address] [facility] [place] [facility] Dexilant Dexilant Yes [place] [address] [place] [facility] Caltrate Caltrate Yes [place] [address] 600+D3 600+D3 [place] with a [facility] meal [facility]oria l [facility]ics Levothyroxi Levothyroxi Yes [place] [address] ne Sodium ne Sodium [place] in the [facility] morning on Memoria an empty l stomach [facility] Rosuvastati Rosuvastati Yes [place] [address] n Calcium n Calcium [place] L [facility] - [facility] Nitrofurant Nitrofurant Yes [place] [address] oin oin [place] with food [facility] Macrocrysta Macrocrysta or milk Memoria l l l [facility]ics Advair Advair Yes [place] [address] Diskus Diskus [place] [facility] Procedures This patient has no known procedures. Encounters Start End Encounter Admission Attending Care Care Encounter Source Date/Time Date/Time Type Type Clinicians Facility Department ID 2020-04-02 2020-04-02 Outpatient [facility] [id number] 2020-04-01 2020-04-01 [facility] [id number] [facility] 2019-09-04 2019-09-04 [facility] [id number] 15:45:00 15:45:00 t Specialty/U Ruby kes - Specialty rology Memori a /Urology Clinic l Clinic [facility] 2019-04-27 2019-04-27 [facility] [id number] [address] 09:30:00 09:30:00 t Specialty/U Ruby kes - Specialty rology Memori a /Urology Clinic l [facility] 2019-04-27 2019-04-27 Faby BAUGH [id number] 00:00:00 00:00:00 Only Unassigned, MAGRI [id number] [facility] [id number] 2019-04-21 2019-04-21 Telephone Mary [facility] [[email or web address] [id number] 00:00:00 00:00:00 Reji SPECIALTY [id number] CARE [id number] CENTER AT [id number] [address] 2019-04-20 2019-04-20 [facility] [id number] 08:05:41 09:17:43 Visit [facility] SPECIALTY [id number] CARE [id number] CENTER AT [id number] [address] 2019-03-27 2019-03-27 Orders Doctor LUPIS [id number] 00:00:00 00:00:00 Only Unassigned, MARGI [id number] [facility] [id number] Results This patient has no known results.
[2020-08-23] MEDS ORDERED: CEPHALEXIN 250 MG CAP ONE (16:30)
[2020-08-23] MEDS ORDERED: LIDOCAINE 1% MPF 5 ML VIAL ONE (16:30)
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
[2020-08-23 17:12] VITALS: TEMP 97
[2020-08-23 17:14] VITALS: BP 129/50; O2SAT 100
== END 2020-08-23 17:01 | disposition home or self-care (01) ==
LOC: ER 15:20
PROC: 0H9FXZZ Drainage of Right Hand Skin, External Approach (ICD-10-PCS; principal; 2020-08-23)
DX: L02.511 Cutaneous abscess of right hand (principal); Z87.891 Personal history of nicotine dependence; J44.9 Chronic obstructive pulmonary disease, unspecified; I10 Essential (primary) hypertension
CPT/HCPCS: 87070; 87077; 87186; 87205; 99283

== ENCOUNTER 2022-06-24 11:24 | Inpatient (IN) | payer OTHER ==
[2022-06-24] MEDS ORDERED: cloNIDine HCL 0.1 MG TAB PO PRN (11:47)
[2022-06-24 11:54] VITALS: BMI 32.2
--- OUTSIDE RECORDS SUMMARY | 2022-06-24 12:15 | XMS REPORT | Continuity of Care Document ---
:1940 Author Organization [facility] t Address [address] [place] [address] [address] [place] [address] Care Team Providers Name Role Phone Asked, No Pcp Primary Care Physician Unavailable Gilles Ma Attending Clinician Unavailable Jackson Enamorado MD Attending Clinician Figueroa Adam MA Attending Clinician Unavailable SANDIE ALMARAZ Attending Clinician Unavailable Sandie Almaraz NP Attending Clinician Faby Blair MD Attending Clinician Martha Whitman MD Attending Clinician Slime Scott NP Attending Clinician Parisa Ramirez MA Attending Clinician Unavailable FAWN STERLING Attending Clinician Unavailable Yesenia WHITLOCK Fawn Attending Clinician FERMIN ESQUEDA Attending Clinician Unavailable Fermin Esqueda MD Attending Clinician Tiana Martinez MD Attending Clinician [phone] Mat FLANNERY, Millicent Attending Clinician Ene Pappas RN Attending Clinician Unavailable WALT MAYERS Attending Clinician Unavailable Walt Mayers MD Attending Clinician Doctor Unassigned, Ferrer Comunidad Attending Clinician Unavailable Vasquez MARTIN, Carroll Falcon Attending Clinician Unavailable REMY DONAHUE Attending Clinician Unavailable Augustine WALTON, Marta Attending Clinician Rowan WHITLOCK, Remy Attending Clinician EWELINA NORIEGA Attending Clinician Unavailable Ewelina Noriega MD Attending Clinician [facility], Magalys Braga Attending Clinician [phone] Nurse, [facility] Attending Clinician Unavailable Avelino WHITLOCK, Jimmy Quintero Attending Clinician Ely Rodriguez RN Attending Clinician Unavailable Eliza Bowie MD Attending Clinician Franky Dalal MD Attending Clinician Jodee Johnston RN Attending Clinician Unavailable Nadeen Mcpherson RN Attending Clinician Juliette Mills RN Attending Clinician Unavailable 1, [facility] Attending Clinician Unavailable Janett FLANNERY, Theodora Attending Clinician SANDIE ALMARAZ Admitting Clinician Unavailable FABY BLAIR Admitting Clinician Unavailable WALT MAYERS Admitting Clinician Unavailable REMY DONAHUE Admitting Clinician Unavailable Remy Donahue MD Admitting Clinician Franky Dalal MD Admitting Clinician Ewelina Noriega Admitting Clinician Payers Payer Name Policy Type Policy Number Effective Date Expiration Date Andrzej TABARES/BONITAP [id number] 2019 MEDICARE 00:00:00 ADVANTAGE AARP Medicare C1 [id number] Common [facility] AARP Medicare C1 [id number] Common [facility] rit [facility] Problems Condition Condition Condition Status Onset Resolution Last Treating Co mments Source Name Details Category Date Date Treatment Clinician Date Obesity Obesity Disease Active Univers 3-16 ity of 00:00: 00 Medical Branch 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 ethodi hernia) hernia) 03-13 00:00: Hospita 00 l Anemia Anemia Disease Active Methodi 03-13 00:00: Hospita 00 l Thrombocyt Thrombocyt Disease Active M ethodi openia openia 03-13 00:00: Hospita 00 l Arthritis Arthritis Disease Active Overview: Methodi 11-[address] 00:00: g of this Hospita 00 note l might be different from the original. 3 years ago Status Status Disease Active Methodi post post 10-16 st cholecyste cholecyste 00:00: Ho spita ctomy ctomy 00 l Right Right Disease Active Methodi upper upper 10-16 st quadrant quadrant 00:00: Hospit a abdominal abdominal 00 l pain pain Dilated Dilated Disease Active Methodi bile duct bile duct 10-16 st 00:00: Hospita 00 l Dyslipidem Dyslipidem Disease Active U nivers ia ia 2-28 ity of 00:00: Medical Branch Bilateral Bilateral Disease Active Uni vers carotid carotid 2-28 ity of artery artery 00:00: [place] disease disease 00 Medical Branch Chest pain Chest pain Disease Active U nivers 2-27 ity of 00:00: Medical Branch Complicate Complicate Disease Active U nivers d UTI d UTI 1-24 ity of (urinary (urinary 00:00: [place] tract tract 00 Medical infection) infection) Br anch Mixed Mixed Disease Active Univers stress and stress and 8-08 it y of urge urge 00:00: [place] urinary urinary 00 Medical incontinen incontinen Br anch ce ce POP-Q POP-Q Disease Active Univers stage 2 stage 2 8-08 ity of rectocele rectocele 00:[place] Shortness Shortness Disease Active 2017-02 Uni vers of breath of breath 2-11 ity of 00:00: [place] 00 Medical Branch Vaginal Vaginal Disease Active Univers itching itching 2-06 ity of 00:00: [place] 00 Medical Branch Pneumonia Pneumonia Disease Active Uni vers 8-29 ity of 00:00: [place] 00 Medical Branch Thrombocyt Thrombocyt Disease Active U nivers openia openia 5-10 ity of 00:00: [place] 00 Medical Branch Essential Essential Disease Active Uni vers hypertensi hypertensi 5-10 it y of on on 00:00: [place] Medical [facility] Thrombocyt Thrombocyt Disease Active U nivers openia openia 5-10 ity of 00:00: [place] 00 Medical Branch Vaginal Vaginal Disease Active Univers atrophy atrophy 3-02 ity of 00:00: [place] 00 Medical Branch Dysuria Dysuria Disease Active Univers 2-03 ity of 00:00: [place] 00 Medical Branch Leukorrhea Leukorrhea Disease Active U nivers , not , not 2-03 ity of specified specified 00:00: [place] as [place] 00 Medical infective infective Bran ch Cystocele, Cystocele, Disease Active U nivers midline midline 2-03 ity of 00:00: [place] 00 Medical Branch Vaginal Vaginal Disease Active Univers pruritus pruritus 2-03 ity of 00:00: [place] 00 Medical Branch S/P S/P Disease Active Univers hysterecto hysterecto 2-03 it y of my my 00:00: [place] 00 Medical Branch Urinary Urinary Disease Active Univers incontinen incontinen 2-03 it y of ce, ce, 00:00: [place] unspecifie unspecifie 00 Me dical d type d type Branch Postmenopa Postmenopa Disease Active U nivers usal usal 2-03 ity of osteoporos osteoporos 00:00: [place] 00 Medical Branch POP-Q POP-Q Disease Active Univers stage 3 stage 3 2-03 ity of cystocele cystocele 00:[place] Dyspepsia Dyspepsia Disease Active Overview: Univers and other and other 8-02 Formattin i ty of specified specified 00:00: g of this [place] disorders disorders 00 note Medi kj of of might be Branch function function different of stomach of stomach from the original. pain SI - Stress Problem Active Common Stress incontinen [facility] incontinen [facility] Allergies, Adverse Reactions, Alerts Allergy Allergy Status Severity Reaction(s) Onset Inactive Treating Comm ents Source Name Type Date Date Clinician Haris Propensi Active Swelling Lip Method i ty to 10-[address] adverse 00:00: Hospita reaction 00 l s to drug HARIS DRUG Active Rash Univers INGREDI 10-07 ity of 00:00: [place] 00 Medical Branch Azithrom Propensi Active Rash Method i ycin ty to 07-30 adverse 00:00: Hospita reaction 00 l s to drug Levoflox Propensi Active Rash Method i acin ty to 07-30 adverse 00:00: Hospita reaction 00 l s to drug Levoflox Propensi Active Rash Univer s acin ty to 07-30 ity of adverse 00:00: [place] reaction 00 Medical s Branch Azithrom Propensi Active Rash Univer s ycin ty to 07-30 ity of adverse 00:00: [place] reaction 00 Medical s Branch LEVOFLOX DRUG Active Rash Univers ACIN INGREDI 07-30 ity of 00:00: [place] 00 Medical Branch AZITHROM DRUG Active Rash Univers YCIN INGREDI 07-30 ity of 00:00: [place] 00 Medical Branch Hydrocod Propensi Active Unknown - Uni vers one-Acet ty to See comments 09-09 it y of aminophe adverse 00:00: [place] n reaction 00 Medical s Branch HYDROCOD DRUG Active Unknown-Cmnt Un li ONE-ACET 09-09 ity of AMINOPHE 00:00: [place] N 00 Medical Branch Codeine Propensi Active Palpitations M ethodi ty to 02-18 st adverse 00:00: Hospita reaction 00 l s to drug Codeine Propensi Active Palpitations U nivers ty to 02-18 ity of adverse 00:00: [place] reaction 00 Medical s Branch CODEINE DRUG Active Palpitations Uni vers INGREDI 02-18 ity of 00:00: [address] azithrom azithrom Active Unknown Commo n ycin ycin Spirit - [facility] Family History Family Member Diagnosis Comments Start Date Stop Date Source Natural brother [facility] Natural sister Diabetes [facility] Natural sister Kidney failure [facility] Natural sister Ovarian cancer [facility] Social History Social Habit Start Date Stop Date Quantity Comments Source History SDOH University o f Alcohol Frequency [facility] [place] edical [place] History SDOH University o f Alcohol Std Drinks [facility] History [facility] University o f Alcohol Binge [facility] Gender identity [facility] Sexual orientation [facility] History of Tobacco [facility] - Use [facility] History of Social 2022-05-26 2022-05-[address] function 00:00:00 00:00:00 Hospital Exposure to 2022-04-13 2022-04-23 Not sure University of SARS-CoV-2 (event) 00:00:00 10:48:00 [facility] Alcohol intake 2022-04-20 2022-04-20 Lifetime [facility] 00:00:00 00:00:00 non-drinker Hospital (finding) Cigarettes smoked 2021-10-16 2021-10-[address] current (pack per 00:00:00 00:00:00 Hospita l day) - Reported Cigarette 2021-10-16 2021-10-16 [facility] pack-years 00:00:00 00:00:00 Hospital Tobacco use and 2021-10-16 2021-10-16 Smokeless [facility] exposure 00:00:00 00:00:00 tobacco non-user Hospital Tobacco Comment 2018-01-18 2018-01-18 quit in 2013. Univer sity of 00:00:00 00:00:00 [facility] Alcohol Comment 2016-03-13 2016-03-13 Rare Universit y of 00:00:00 00:00:00 [facility] Sex Ass[birth year] At [birth year] [facility] 00:00:00 00:00:00 Hospital Smoking Status Start Date Stop Date Source Ex-smoker 2021-10-16 00:00:00 2021-10-16 00:00:00 [facility] Medications Ordered Filled Start Stop Current Ordering Indication Dosage Frequency Signature Comments Components Source Medication Medication Date Date Medication? Clinician (SIG) Name Name Fluticasone 2023-0 2023- No 1{puff} Inhale 1 Univers -Salmeterol 3-16 03-16 Puff in ity of (ADVAIR 14:15: 00:00 the [place] DISKUS) 47 :00 morning Medical 100-50 and 1 Puff Branch mcg/dose in the inhalation evening. disk aspirin 81 2023-0 Yes 81mg QD Chew 1 Metho di mg chewable 3-11 tablet (81 st tablet 03:08: mg total) Hospit a 02 daily. l aspirin 81 2023-0 Yes 81mg QD Chew 1 Metho di mg chewable 3-11 tablet (81 st tablet 03:08: mg total) Hospit a 02 daily. l aspirin 81 2023-0 Yes 81mg QD Chew 1 Metho di mg chewable 3-11 tablet (81 st tablet 03:08: mg total) Hospit a 02 daily. l aspirin 81 2023-0 Yes 81mg QD Chew 1 Metho di mg chewable 3-11 tablet (81 st tablet 03:08: mg total) Hospit a 02 daily. l polyethylen 2023-0 2023- No 4000mL Take 4,000 Methodi e glycol 2-08 02-[address] (Diagnosoft) 00:00: 05:59 mouth once Hospita 236-22.74-6 00 :00 for 1 l .74 -5.86 dose. gram solution polyethylen 2023-0 2023- No 4000mL Take 4,000 Methodi e glycol 2-08 02-[address] (Diagnosoft) 00:00: 05:59 mouth once Hospita 236-22.74-6 00 :00 for 1 l .74 -5.86 dose. gram solution polyethylen 2023-0 2023- No 4000mL Take 4,000 Methodi e glycol 2-08 02-[address] (Diagnosoft) 00:00: 05:59 mouth once Hospita 236-22.74-6 00 :00 for 1 l .74 -5.86 dose. gram solution polyethylen 2023-0 2023- No 4000mL Take 4,000 Methodi e glycol 2-08 02-[address] (Golytely) 00:00: 05:59 mouth once Hospita 236-22.74-6 00 :00 for 1 l .74 -5.86 dose. gram solution lactobacill 2022- No 1mg 1 mg, Univ ers us 03-09 Oral, ONCE ity of acidophilus 19:30: 19:49 NOW, 1 [facility] as tablet 1 mg 00 :00 dose, On [facility] Branch 03/09/22 at 1330, JOHN ketorolac 2022- No 10mg 10 mg, Unive rs (TORADOL) 03-09 Oral, ONCE ity of tablet 10 19:30: 19:49 NOW, 1 [place] mg 00 :00 dose, On [facility] Branch 03/09/22 at 1330, JOHN amoxicillin 2022- No 1{tbl} 1 tablet, Univers -clavulanat 03-09 Oral, ONCE i ty of e 19:15: 19:49 NOW, 1 [place] (AUGMENTIN) 00 :00 dose, On [facility] 875-125 mg [facility] per tablet 03/09/22 at 1 tablet 1315, Routine
Reason for Anti-Infec tive: Documented Infection< br>Documen theodora Infection Site: HEENT
D uration of Therapy: Other (see Comments) cefpodoxime Yes [id number] 200mg Take 1 Univers 200 mg 1-30 tablet by ity of tablet 00:00: mouth in [place] 00 the Medical morning Branch and 1 tablet in the evening. hyoscyamine Yes [id number] .25mg Place 2 Univers sulfate 1-30 tablets ity of (LEVSIN/SL) 00:00: under the [place] 0.125 mg 00 tongue Medical sublingual every 6 Branch tablet (six) hours as needed (Abdominal pain or cramping). meloxicam Yes [id number] 15mg Take 1 U nivers 15 mg 1-30 tablet by ity of tablet 00:00: mouth in [place] 00 the Medical morning. Branch acetaminoph Yes [id number] 650mg Take 1 Univers en (TYLENOL 1-30 tablet by ity of ARTHRITIS 00:00: mouth [place] PAIN) 650 00 every 8 Medical mg CR (eight) Branch tablet hours as needed for Pain. Saccharomyc 0 Yes [id number] 250mg Take 1 Univers es 1-30 capsule by ity of boulardii 00:00: mouth in [facility] s (FLORASTOR) 00 the Medical 250 mg morning Branch capsule and 1 capsule in the evening. cefpodoxime 0 Yes [id number] 200mg Take 1 Univers 200 mg 1-30 tablet by ity of tablet 00:00: mouth in [place] 00 the Medical morning Branch and 1 tablet in the evening. hyoscyamine [id number] 2 Univers sulfate 1-30 tablets ity of (LEVSIN/SL) 00:00: under the [place] 0.125 mg 00 tongue Medical sublingual every 6 Branch tablet (six) hours as needed (Abdominal pain or cramping). meloxicam 0 Yes [id number] 15mg Take 1 U nivers 15 mg 1-30 tablet by ity of tablet 00:00: mouth in [place] 00 the Medical morning. Branch acetaminoph 0 Yes [id number] 650mg Take 1 Univers en (TYLENOL 1-30 tablet by ity of ARTHRITIS 00:00: mouth [place] PAIN) 650 00 every 8 Medical mg CR (eight) Branch tablet hours as needed for Pain. Saccharomyc 0 Yes [id number] 250mg Take 1 Univers es 1-30 capsule by ity of boulardii 00:00: mouth in [facility] (GARYSTPR) 00 the Medical 250 mg morning Branch capsule and 1 capsule in the evening. cephALEXin 2022-2022- No 500mg 500 mg, Un li (KEFLEX) 02-21 Oral, ity of capsule 500 03:45: 03:33 ONCE, 1 [place] mg 00 :00 dose, On Medical Fri Branch 02/20/22 at 2145, JOHN
Re ason for Anti-Infec tive: Empiric Therapy for Suspected Infection< br>Empiric Therapy Site: Skin / Soft tissue
Duration of therapy: 5 days cephALEXin 2022-0 2022- No [id number] 500mg Take 1 Univers (KEFLEX) 02-20 capsule by ity of 500 mg 00:00: 05:59 mouth 4 [place] capsule 00 :00 (four) Medical times Branch daily for 7 days. levothyroxi 2-0 Yes Method i ne 8-21 st (SYNTHROID) 00:00: Hospit a 150 mcg 00 l tablet levothyroxi 2021-0 Yes Method i ne 8-21 st (SYNTHROID) 00:00: Hospit a 150 mcg 00 l tablet levothyroxi 2021-0 Yes Method i ne 8-21 st (SYNTHROID) 00:00: Hospit a 150 mcg 00 l tablet levothyroxi 2021-0 Yes Method i ne 8-21 st (SYNTHROID) 00:00: Hospit a 150 mcg 00 l tablet predniSONE 2021-0 Yes 10mg QD Take 1 Metho di (DELTASONE) 8-19 tablet (10 st 10 mg 00:00: mg total) Hospita tablet 00 by mouth l daily. predniSONE 2-0 Yes 10mg QD Take 1 Metho di (DELTASONE) 8-19 tablet (10 st 10 mg 00:00: mg total) Hospita tablet 00 by mouth l daily. predniSONE 2021-0 Yes 10mg QD Take 1 Metho di (DELTASONE) 8-19 tablet (10 st 10 mg 00:00: mg total) Hospita tablet 00 by mouth l daily. predniSONE 2-0 Yes 10mg QD Take 1 Metho di (DELTASONE) 8-19 tablet (10 st 10 mg 00:00: mg total) Hospita tablet 00 by mouth l daily. atorvastati 2022-0 Yes 20mg QD Take 1 Meth alonzo n (LIPITOR) 8-03 tablet (20 st 20 mg 00:00: mg total) Hospita tablet 00 by mouth l nightly. Dexilant 60 2022-0 Yes 60mg QD Take 1 Meth alonzo mg capsule 8-[address] 00:00: (60 mg Hospita 00 total) by l mouth daily. atorvastati 2022-0 Yes 20mg QD Take 1 Meth alonzo n (LIPITOR) 8-03 tablet (20 st 20 mg 00:00: mg total) Hospita tablet 00 by mouth l nightly. Dexilant 60 2022-0 Yes 60mg QD Take 1 Meth alonzo mg capsule 8-[address] 00:00: (60 mg Hospita 00 total) by l mouth daily. atorvastati 2022-0 Yes 20mg QD Take 1 Meth alonzo n (LIPITOR) 8-03 tablet (20 st 20 mg 00:00: mg total) Hospita tablet 00 by mouth l nightly. Dexilant 60 2021-0 Yes 60mg QD Take 1 Meth alonzo mg capsule 8-[address] 00:00: (60 mg Hospita 00 total) by l mouth daily. atorvastati 2021-0 Yes 20mg QD Take 1 Meth alonzo n (LIPITOR) 8-03 tablet (20 st 20 mg 00:00: mg total) Hospita tablet 00 by mouth l nightly. Dexilant 60 2021-0 Yes 60mg QD Take 1 Meth aolnzo mg capsule 8-[address] 00:00: (60 mg Hospita 00 total) by l mouth daily. atorvastati 2022- No 20mg Take 1 Uni vers n 20 mg 09-10 03-16 tablet by ity of tablet 00:00: 00:00 mouth. [place] 00 :00 Medical Branch gadobenate 2021- No [id number] .2mL/kg 0.2 mL/kg, Univers dimeglumine 07-31 Intravenou i ty of (MULTIHANCE 21:45: 21:38 s, ONCE, 1 [place] -20 mL) 00 :00 dose, On Medical injection Afshan Branch 0.2 mL/kg 07/31/21 at 1645, Routine losartan 2021-0 Yes 25mg QD Take 1 Methodi (COZAAR) 25 - tablet (25 st MG tablet 00:00: mg total) Hos jeannie 00 by mouth l daily. losartan 2021-0 Yes 25mg QD Take 1 Methodi (COZAAR) 25 6-09 tablet (25 st MG tablet 00:00: mg total) Hos jeannie 00 by mouth l daily. losartan 2021-0 Yes 25mg QD Take 1 Methodi (COZAAR) 25 6-09 tablet (25 st MG tablet 00:00: mg total) Hos jeannie 00 by mouth l daily. losartan 2021-0 Yes 25mg QD Take 1 Methodi (COZAAR) 25 6-09 tablet (25 st MG tablet 00:00: mg total) Hos jeannie 00 by mouth l daily. losartan 25 2021-0 Yes 25mg Take 1 Univ ers mg tablet 6-09 tablet by ity o f 00:00: mouth. [address] Branch barium 2021- No [id number] 700mg 700 mg, Un li sulfate 06-11 05- Oral, ity of (E-Z DISK) 16:45: 15:39 ONCE, 1 [facility] as tablet 700 00 :00 dose, On Medic al mg 06/11/21 Branch at 1145, Routine barium 2021- No [id number] 680g 680 g, Univ ers sulfate 06-11 Oral, ity of (LIQUID E-Z 15:45: 15:39 ONCE, 1 [place]) 60 % 00 :00 dose, On Medi kj (w/v) oral Wed06/11/21 Bra nch suspension at 1045, 680 g Routine docusate Yes 100mg 100 mg, Unive rs (COLACE) 04-07 Oral, ity of capsule 100 22:30: DAILY, [place] mg 00 First dose Medical (after Branch last modificati on) on Wed04/07/21 at 1630, Until Discontinu ed, Routine sulfur 2021- No [id number] 5mL 5 mL, Unive rs hexafluorid 04-07 Intravenou i ty of e microsphr 21:45: 21:45 s, ONCE, 1 [place] (LUMASON) 00 :00 dose, On Medica l injection Wed Branch mL 04/07/21 at 1545, Routine
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 [address] rosuvastati Yes 5mg Take 5 mg U nivers n 5 mg 2-28 by mouth ity of tablet 18:09: daily. [address] Fluticasone Yes 1{puff} Inhale 1 Univers -Salmeterol 2-28 Puff every it y of (ADVAIR 18:09: 12 [place] DISKUS) 07 (twelve) Medical 100-50 hours. Branch mcg/dose inhalation disk ibandronate Yes 150mg Take 150 U nivers 150 mg 2-28 mg by ity of tablet 18:09: mouth once [place] every Medical month. Branch Dexlansopra Yes 1{capsu Take 1 U nivers zole 2-28 le} capsule by ity of (DEXILANT) 18:09: mouth [place] 60 mg 07 daily. Medical capsule Branch multivit-mi Yes Take by Uni vers ns 2-28 mouth ity of no.63/iron/ 18:09: daily. [place] folic 07 Medical (M-VIT Branch ORAL) levothyroxi Yes 200ug Take 200 U nivers ne 200 mcg 2-28 mcg by ity of tablet 18:09: mouth [place] 07 every Medical morning. Branch levothyroxi Yes 25ug Take 25 Uni vers ne 50 mcg 2-28 mcg by ity of tablet 18:09: mouth [place] 07 every Medical morning. Branch For total of 225 albuterol Yes 1{puff} Inhale 1 U nivers sulfate 2-28 Puff as ity of (PROAIR HFA 18:09: needed. [facility] as INHALE) Medical Branch IBUPROFEN Yes 1{tbl} Take 1 Univ ers ORAL 2-28 tablet by ity of 18:09: mouth as [place] needed. Medical Branch aspirin 81 Yes 81mg Take 81 mg U nivers mg chewable 2-28 by mouth ity of tablet 18:09: daily. Medical Branch rosuvastati Yes 5mg Take 5 mg U nivers n 5 mg 2-28 by mouth ity of tablet 18:09: daily. Medical Branch Fluticasone Yes 1{puff} Inhale 1 Univers -Salmeterol 2-28 Puff every it y of (ADVAIR 18:09: 12 [place] DISKUS) 07 (twelve) Medical 100-50 hours. Branch mcg/dose inhalation disk ibandronate Yes 150mg Take 150 U nivers 150 mg 2-28 mg by ity of tablet 18:09: mouth once [place] every Medical month. Branch Dexlansopra Yes 1{capsu Take 1 U nivers zole 2-28 le} capsule by ity of (DEXILANT) 18:09: mouth [place] 60 mg 07 daily. Medical capsule Branch multivit-mi Yes Take by Uni vers ns 2-28 mouth ity of no.63/iron/ 18:09: daily. [place] folic 07 Medical (M-VIT Branch ORAL) levothyroxi Yes 200ug Take 200 U nivers ne 200 mcg 2-28 mcg by ity of tablet 18:09: mouth [place] 07 every Medical morning. Branch levothyroxi Yes 25ug Take 25 Uni vers ne 50 mcg 2-28 mcg by ity of tablet 18:09: mouth [place] 07 every Medical morning. Branch For total of 225 albuterol Yes 1{puff} Inhale 1 U nivers sulfate 2-28 Puff as ity of (PROAIR HFA 18:09: needed. [facility] as INHALE) Medical Branch IBUPROFEN Yes 1{tbl} Take 1 Univ ers ORAL 2-28 tablet by ity of 18:09: mouth as [place] 07 needed. Medical Branch aspirin 81 Yes 81mg Take 81 mg U nivers mg chewable 2-28 by mouth ity of tablet 18:09: daily. Medical Branch rosuvastati Yes 5mg Take 5 mg U nivers n 5 mg 2-28 by mouth ity of tablet 18:09: daily. [place] [id number] Medical Branch Fluticasone Yes 1{puff} Inhale 1 Univers -Salmeterol 2-28 Puff every it y of (ADVAIR 18:09: 12 [place] DISKUS) 07 (twelve) Medical 100-50 hours. Branch mcg/dose inhalation disk ibandronate Yes 150mg Take 150 U nivers 150 mg 2-28 mg by ity of tablet 18:09: mouth once [place] 07 every Medical month. Branch Dexlansopra Yes 1{capsu Take 1 U nivers zole 2-28 le} capsule by ity of (DEXILANT) 18:09: mouth [place] 60 mg 07 daily. Medical capsule Branch multivit-mi Yes Take by Uni vers ns 2-28 mouth ity of no.63/iron/ 18:09: daily. [place] folic 07 Medical (M-VIT Branch ORAL) levothyroxi Yes 200ug Take 200 U nivers ne 200 mcg 2-28 mcg by ity of tablet 18:09: mouth [place] 07 every Medical morning. Branch levothyroxi Yes 25ug Take 25 Uni vers ne 50 mcg 2-28 mcg by ity of tablet 18:09: mouth [place] 07 every Medical morning. Branch For total of 225 albuterol Yes 1{puff} Inhale 1 U nivers sulfate 2-28 Puff as ity of (PROAIR HFA 18:09: needed. [facility] as INHALE) 07 Medical Branch IBUPROFEN Yes 1{tbl} Take 1 Univ ers ORAL 2-28 tablet by ity of 18:09: mouth as [place] 07 needed. Medical Branch aspirin 81 Yes 81mg Take 81 mg U nivers mg chewable 2-28 by mouth ity of tablet 18:09: daily. Medical Branch rosuvastati Yes 5mg Take 5 mg U nivers n 5 mg 2-28 by mouth ity of tablet 18:09: daily. Medical Branch Fluticasone Yes 1{puff} Inhale 1 Univers -Salmeterol 2-28 Puff every it y of (ADVAIR 18:09: 12 [place] DISKUS) 07 (twelve) Medical 100-50 hours. Branch mcg/dose inhalation disk ibandronate Yes 150mg Take 150 U nivers 150 mg 2-28 mg by ity of tablet 18:09: mouth once [place] 07 every Medical month. Branch Dexlansopra Yes 1{capsu Take 1 U nivers zole 2-28 le} capsule by ity of (DEXILANT) 18:09: mouth [place] 60 mg 07 daily. Medical capsule Branch multivit-mi Yes Take by Uni vers ns 2-28 mouth ity of no.63/iron/ 18:09: daily. [place] folic 07 Medical (M-VIT Branch ORAL) levothyroxi Yes 200ug Take 200 U nivers ne 200 mcg 2-28 mcg by ity of tablet 18:09: mouth [place] 07 every Medical morning. Branch levothyroxi Yes 25ug Take 25 Uni vers ne 50 mcg 2-28 mcg by ity of tablet 18:09: mouth [place] 07 every Medical morning. Branch For total of 225 albuterol Yes 1{puff} Inhale 1 U nivers sulfate 2-28 Puff as ity of (PROAIR HFA 18:09: needed. [facility] as INHALE) Medical Branch IBUPROFEN Yes 1{tbl} Take 1 Univ ers ORAL 2-28 tablet by ity of 18:09: mouth as [place] 07 needed. Medical Branch aspirin 81 Yes 81mg Take 81 mg U nivers mg chewable 2-28 by mouth ity of tablet 18:09: daily. [place] [id number] Medical Branch rosuvastati Yes 5mg Take 5 mg U nivers n 5 mg 2-28 by mouth ity of tablet 18:09: daily. [place] [address] Medical Branch Fluticasone Yes 1{puff} Inhale 1 [facility] -Salmeterol 2-28 Puff every it y of (ADVAIR 18:09: 12 [place] DISKUS) 07 (twelve) Medical 100-50 hours. Branch mcg/dose inhalation disk ibandronate Yes 150mg Take 150 U nivers 150 mg 2-28 mg by ity of tablet 18:09: mouth once [place] every Medical month. Branch Dexlansopra Yes 1{capsu Take 1 U nivers zole 2-28 le} capsule by ity of (DEXILANT) 18:09: mouth [place] 60 mg 07 daily. Medical capsule Branch multivit-mi Yes Take by Uni vers ns 2-28 mouth ity of no.63/iron/ 18:09: [place]. [place] 07 Medical (M-VIT Branch ORAL) levothyroxi Yes 200ug Take 200 U nivers ne 200 mcg 2-28 mcg by ity of tablet 18:09: mouth [place] 07 every Medical morning. Branch levothyroxi Yes 25ug Take 25 Uni vers ne 50 mcg 2-28 mcg by ity of tablet 18:09: mouth [place] every Medical morning. Branch For total of 225 albuterol Yes 1{puff} Inhale 1 U nivers sulfate 2-28 Puff as ity of (PROAIR HFA 18:09: needed. [facility] as INHALE) 07 Medical Branch IBUPROFEN Yes 1{tbl} Take 1 Univ ers ORAL 2-28 tablet by ity of 18:09: mouth as [place] 07 needed. Medical Branch aspirin 81 Yes 81mg Take 81 mg U nivers mg chewable 2-28 by mouth ity of tablet 18:09: daily. Medical Branch rosuvastati Yes 5mg Take 5 mg U nivers n 5 mg 2-28 by mouth ity of tablet 18:09: daily. Medical Branch Fluticasone Yes 1{puff} Inhale 1 [facility] -Salmeterol 2-28 Puff every it y of (ADVAIR 18:09: 12 [place] DISKUS) 07 (twelve) Medical 100-50 hours. Branch mcg/dose inhalation disk ibandronate Yes 150mg Take 150 U nivers 150 mg 2-28 mg by ity of tablet 18:09: mouth once [place] every Medical month. Branch Dexlansopra Yes 1{capsu Take 1 U nivers zole 2-28 le} capsule by ity of (DEXILANT) 18:09: mouth [place] 60 mg 07 daily. Medical capsule Branch multivit-mi Yes Take by Uni vers ns 2-28 mouth ity of no.63/iron/ 18:09: daily. [place] 07 Medical (M-VIT Branch ORAL) levothyroxi Yes 200ug Take 200 U nivers ne 200 mcg 2-28 mcg by ity of tablet 18:09: mouth [place] 07 every Medical morning. Branch levothyroxi Yes 25ug Take 25 Uni vers ne 50 mcg 2-28 mcg by ity of tablet 18:09: mouth [place] every Medical morning. Branch For total of 225 albuterol Yes 1{puff} Inhale 1 U nivers sulfate 2-28 Puff as ity of (PROAIR HFA 18:09: needed. [facility] as INHALE) 07 Medical Branch IBUPROFEN Yes 1{tbl} Take 1 Univ ers ORAL 2-28 tablet by ity of 18:09: mouth as [place] 07 needed. Medical Branch aspirin 81 Yes 81mg Take 81 mg U nivers mg chewable 2-28 by mouth ity of tablet 18:09: daily. Medical Branch rosuvastati Yes 5mg Take 5 mg U nivers n 5 mg 2-28 by mouth ity of tablet 18:09: daily. Medical Branch Fluticasone Yes 1{puff} Inhale 1 [facility] -Salmeterol 2-28 Puff every it y of (ADVAIR 18:09: 12 [place] DISKUS) 07 (twelve) Medical 100-50 hours. Branch mcg/dose inhalation disk ibandronate Yes 150mg Take 150 U nivers 150 mg 2-28 mg by ity of tablet 18:09: mouth once [place] 07 every Medical month. Branch Dexlansopra Yes 1{capsu Take 1 U nivers zole 2-28 le} capsule by ity of (DEXILANT) 18:09: mouth [place] 60 mg 07 daily. Medical capsule Branch multivit-mi Yes Take by Uni vers ns 2-28 mouth ity of no.63/iron/ 18:09: daily. [place] 07 Medical (M-VIT Branch ORAL) levothyroxi Yes 200ug Take 200 U nivers ne 200 mcg 2-28 mcg by ity of tablet 18:09: mouth [place] 07 every Medical morning. Branch levothyroxi Yes 25ug Take 25 Uni vers ne 50 mcg 2-28 mcg by ity of tablet 18:09: mouth [place] every Medical morning. Branch For total of 225 albuterol Yes 1{puff} Inhale 1 U nivers sulfate 2-28 Puff as ity of (PROAIR HFA 18:09: needed. [facility] as INHALE) Medical Branch IBUPROFEN Yes 1{tbl} Take 1 Univ ers ORAL 2-28 tablet by ity of 18:09: mouth as [place] 07 needed. Medical Branch aspirin 81 Yes 81mg Take 81 mg U nivers mg chewable 2-28 by mouth ity of tablet 18:09: daily. [place] [address] Medical Branch rosuvastati Yes 5mg Take 5 mg U nivers n 5 mg 2-28 by mouth ity of tablet 18:09: daily. [place] [address] Medical Branch Fluticasone Yes 1{puff} Inhale 1 [facility] -Salmeterol 2-28 Puff every it y of (ADVAIR 18:09: 12 [place] DISKUS) 07 (twelve) Medical 100-50 hours. Branch mcg/dose inhalation disk ibandronate Yes 150mg Take 150 U nivers 150 mg 2-28 mg by ity of tablet 18:09: mouth once [place] every Medical month. Branch Dexlansopra Yes 1{capsu Take 1 U nivers zole 2-28 le} capsule by ity of (DEXILANT) 18:09: mouth [place] 60 mg 07 daily. Medical capsule Branch multivit-mi Yes Take by Uni vers ns 2-28 mouth ity of no.63/iron/ 18:09: daily. [place] 07 Medical (M-VIT Branch ORAL) levothyroxi Yes 200ug Take 200 U nivers ne 200 mcg 2-28 mcg by ity of tablet 18:09: mouth [place] every Medical morning. Branch levothyroxi Yes 25ug Take 25 Uni vers ne 50 mcg 2-28 mcg by ity of tablet 18:09: mouth [place] every Medical morning. Branch For total of 225 albuterol Yes 1{puff} Inhale 1 U nivers sulfate 2-28 Puff as ity of (PROAIR HFA 18:09: needed. [facility] as INHALE) Medical Branch IBUPROFEN Yes 1{tbl} Take 1 Univ ers ORAL 2-28 tablet by ity of 18:09: mouth as [place] needed. Medical Branch aspirin 81 0 Yes 81mg Take 81 mg U nivers mg chewable 2-28 by mouth ity of tablet 18:09: daily. Medical Branch rosuvastati Yes 5mg Take 5 mg U nivers n 5 mg 2-28 by mouth ity of tablet 18:09: daily. Medical Branch Fluticasone Yes 1{puff} Inhale 1 [facility] -Salmeterol 2-28 Puff every it y of (ADVAIR 18:09: 12 [place] DISKUS) 07 (twelve) Medical 100-50 hours. Branch mcg/dose inhalation disk ibandronate Yes 150mg Take 150 U nivers 150 mg 2-28 mg by ity of tablet 18:09: mouth once every Medical month. Branch Dexlansopra Yes 1{capsu Take 1 U nivers zole 2-28 le} capsule by ity of (DEXILANT) 18:09: mouth [place] 60 mg 07 daily. Medical capsule Branch multivit-mi Yes Take by Uni vers ns 2-28 mouth ity of no.63/iron/ 18:09: daily. [place] 07 Medical (M-VIT Branch ORAL) levothyroxi Yes 200ug Take 200 U nivers ne 200 mcg 2-28 mcg by ity of tablet 18:09: mouth [place] 07 every Medical morning. Branch levothyroxi Yes 25ug Take 25 Uni vers ne 50 mcg 2-28 mcg by ity of tablet 18:09: mouth [place] 07 every Medical morning. Branch For total of 225 albuterol Yes 1{puff} Inhale 1 U nivers sulfate 2-28 Puff as ity of (PROAIR HFA 18:09: needed. [facility] as INHALE) Medical Branch IBUPROFEN Yes 1{tbl} Take 1 Univ ers ORAL 2-28 tablet by ity of 18:09: mouth as [place] 07 needed. Medical Branch aspirin 81 Yes 81mg Take 81 mg U nivers mg chewable 2-28 by mouth ity of tablet 18:09: daily. Medical Branch rosuvastati Yes 5mg Take 5 mg U nivers n 5 mg 2-28 by mouth ity of tablet 18:09: daily. Medical Branch Fluticasone Yes 1{puff} Inhale 1 [facility] -Salmeterol 2-28 Puff every it y of (ADVAIR 18:09: 12 [place] DISKUS) 07 (twelve) Medical 100-50 hours. Branch mcg/dose inhalation disk ibandronate Yes 150mg Take 150 U nivers 150 mg 2-28 mg by ity of tablet 18:09: mouth once [place] 07 every Medical month. Branch Dexlansopra Yes 1{capsu Take 1 U nivers zole 2-28 le} capsule by ity of (DEXILANT) 18:09: mouth [place] 60 mg 07 daily. Medical capsule Branch multivit-mi Yes Take by Uni vers ns -28 mouth ity of no.63/iron/ 18:09: daily. [place] 07 Medical (M-VIT Branch ORAL) levothyroxi Yes 200ug Take 200 U nivers ne 200 mcg 2-28 mcg by ity of tablet 18:09: mouth [place] 07 every Medical morning. Branch levothyroxi Yes 25ug Take 25 Uni vers ne 50 mcg 2-28 mcg by ity of tablet 18:09: mouth [place] every Medical morning. Branch For total of 225 albuterol Yes 1{puff} Inhale 1 U nivers sulfate -28 Puff as ity of (PROAIR HFA 18:09: needed. [facility] as INHALE) 07 Medical Branch IBUPROFEN Yes 1{tbl} Take 1 Univ ers ORAL 04-07 tablet by ity of 18:09: mouth as [place] [address] needed. Medical Branch atorvastati 2021- No 10mg Take 10 mg [facility] n 10 mg 04-07 by mouth ity of tablet 17:00: 00:00 at [place] 18 :00 bedtime. Medical Branch nitrofurant 2021- No 100mg Take 100 [facility] oin 100 mg 04-07 mg by ity of capsule 17:00: 00:00 mouth [place] 18 :00 daily. Medical Branch enoxaparin Yes 40mg 40 mg, Unive rs (LOVENOX) 04-07 Subcutaneo ity of injection 15:00: [place], DAILY, [place] 40 mg 00 First dose Medical on [facility] 04/07/21 at 0900, Until Discontinu ed, Routine rosuvastati Yes 5mg 5 mg, Unive rs n (CRESTOR) 04-07 Oral, ity of tablet 5 mg 15:00: DAILY, [place] 00 First dose Medical on [facility] 04/07/21 at 0900, Until Discontinu ed, Routine aspirin Yes 81mg 81 mg, Univers chewable 04-07 Oral, ity of tablet 81 15:00: DAILY, [place] mg 00 First dose Medical on [facility] 04/07/21 at 0900, Until Discontinu ed, Routine Fluticasone 2022-0 Yes 1{puff} 1 Puff, Univers -Salmeterol 04-07 Inhalation it y of (ADVAIR) 14:00: , Q12H, [place] 100-50 00 First dose Medical mcg/dose on Wed [place] inhalation 04/07/21 at disk 1 Puff 0800, Until Discontinu ed, Routine benzonatate 2021-0 Yes 100mg 100 mg, Un li (TESSALON 04-07 Oral, Q8H, ity of PERLES) 06:45: First [place] capsule 100 00 on Wed Medica l mg 04/07/21 at Branch 0045, Until Discontinu ed, Routine codeine-gua 2021-0 Yes 5mL 5 mL, Unive rs ifenesin 04-07 Oral, ity of (ROBITUSSIN 06:38: Q6HPRN, [facility] as AC) 10100 28 Starting Medic al mg/5 mL on Wed [place] oral 04/07/21 at solution 5 0038, mL Until Discontinu ed, Routine, Cough nitroglycer 2021-0 Yes .4mg 0.4 mg, Uni vers in 04-07 Sublingual ity of (NITROSTAT) 04:46: , Q5MIN [facility] as sublingual 32 PRN, Medical tablet 0.4 Starting Branc h mg on [place] 04/06/21 at 2246, Until Discontinu ed, Routine, Chest pain ondansetron 2021-0 Yes 4mg 4 mg, Slow Univers (ZOFRAN 04-07 IV Push, ity of (PF)) 04:46: Q6HPRN, [place] injection 4 14 Starting Medi kj mg on [facility] 04/06/21 at 2246, Until Discontinu ed, Routine, Nausea and Vomiting (N/V) ibuprofen 2021-0 Yes 200mg 200 mg, Univ ers (MOTRIN IB) 04-07 Oral, ity of tablet 200 04:46: Q6HPRN, [place] mg 04 Starting Medical on [facility] 04/06/21 at 2246, Until Discontinu ed, Routine, Pain (scale 1-3) bisacodyL 2021-0 Yes 5mg 5 mg, Univers (DULCOLAX) 04-07 Oral, ity of tablet 5 mg 04:44: QDAILYPRN, [place] 18 Starting Medical on [facility] 04/06/21 at 2244, Until Discontinu ed, Routine, Constipati on ondansetron 2021- No 4mg 4 mg, Slow Univers (ZOFRAN 04-07 IV Push, ity of (PF)) 02:00: 00:55 ONCE, 1 [place] injection 4 00 :00 dose, On Medi kj mg [place] Branch 04/06/21 at 2000, JOHN aspirin 2021-0 2021- No 325mg 325 mg, Unive rs tablet 325 04-07 Oral, ity of mg 01:45: 00:53 ONCE, 1 [place] 00 :00 dose, On Medical [place] Branch 04/06/21 at 1945, JOHN nitroglycer 2021-[id number] 1 Univers in 0.4 mg 2-28 tablet ity of sublingual 00:00: under the [place] tablet 00 tongue Medical every 5 Branch (five) minutes as needed for Chest pain. nitroglycer 2021-[id number] 1 Univers in 0.4 mg 2-28 tablet ity of sublingual 00:00: under the [place] tablet 00 tongue Medical every 5 Branch (five) minutes as needed for Chest pain. nitroglycer 2021-[id number] 1 Univers in 0.4 mg 2-28 tablet ity of sublingual 00:00: under the [place] tablet 00 tongue Medical every 5 Branch (five) minutes as needed for Chest pain. nitroglycer 2021-[id number] 1 [facility] in 0.4 mg 2-28 tablet ity of sublingual 00:00: under the [place] tablet 00 tongue Medical every 5 Branch (five) minutes as needed for Chest pain. nitroglycer 2021-[id number] 1 Univers in 0.4 mg 2-28 tablet ity of sublingual 00:00: under the [place] tablet 00 tongue Medical every 5 Branch (five) minutes as needed for Chest pain. nitroglycer 2021-[id number] 1 Univers in 0.4 mg 2-28 tablet ity of sublingual 00:00: under the [place] tablet 00 tongue Medical every 5 Branch (five) minutes as needed for Chest pain. nitroglycer 2021-[id number] 1 Univers in 0.4 mg 2-28 tablet ity of sublingual 00:00: under the [place] tablet 00 tongue Medical every 5 Branch (five) minutes as needed for Chest pain. nitroglycer [id number] 1 Univers in 0.4 mg 2-28 tablet ity of sublingual 00:00: under the [place] tablet 00 tongue Medical every 5 Branch (five) minutes as needed for Chest pain. nitroglycer [id number] 1 Univers in 0.4 mg 2-28 tablet ity of sublingual 00:00: under the [place] tablet 00 tongue Medical every 5 Branch (five) minutes as needed for Chest pain. nitroglycer [id number] 1 Univers in 0.4 mg 2-28 tablet ity of sublingual 00:00: under the [place] tablet 00 tongue Medical every 5 Branch (five) minutes as needed for Chest pain. docusate 2021-0 2- No [id number] 100mg Take 1 U nivers 100 mg 2-28 03-31 capsule by ity of capsule 00:00: 04:59 mouth [place] 00 :00 daily for Medical 30 days. Branch docusate 2021-0 2021- No [id number] 100mg Take 1 U nivers 100 mg 2-28 03-31 capsule by ity of capsule 00:00: 04:59 mouth [place] 00 :00 daily for Medical 30 days. Branch benzonatate 2021-0 2022- No [id number] 100mg Take 1 [facility] 100 mg 2-28 03-08 capsule by ity of capsule 00:00: 05:59 mouth [place] 00 :00 every 8 Medical (eight) Branch hours for 7 days. benzonatate 2021-0 2021- No [id number] 100mg Take 1 [facility] 100 mg 2-28 03-08 capsule by ity of capsule 00:00: 05:59 mouth [place] 00 :00 every 8 Medical (eight) Branch hours for 7 days. Premarin Premarin 0 No Premarin 0.625 MG/GM 0.625 MG/GM 2-23 0.625 00:00: MG/GM 00 Nitrofurant Nitrofurant 2020-0 2020- No [place] 1 capsule Common oin Monohyd oin Monohyd 7-27 10-25 [place] at bedtime [facility] Macro 00:00: 00:00 with food - [facility] 00 :00 [facility] estradiol 2020-0 Yes [id number] 2g Insert 2 g Univers (ESTRACE) 3-12 into ity of 0.01 % (0.1 00:00: vagina [place] mg/gram) 00 weekly. Medical vaginal Branch cream estradiol 2020-0 Yes [id number] 2g Insert 2 g Univers (ESTRACE) 3-12 into ity of 0.01 % (0.1 00:00: vagina [place] mg/gram) 00 weekly. Medical vaginal Branch cream estradiol 2020-0 Yes [id number] 2g Insert 2 g Univers (ESTRACE) 3-12 into ity of 0.01 % (0.1 00:00: vagina [place] mg/gram) 00 weekly. Medical vaginal Branch cream estradiol 2020-0 Yes [id number] 2g Insert 2 g Univers (ESTRACE) 3-12 into ity of 0.01 % (0.1 00:00: vagina [place] mg/gram) 00 weekly. Medical vaginal Branch cream estradiol 2020-0 Yes [id number] 2g Insert 2 g Univers (ESTRACE) 3-12 into ity of 0.01 % (0.1 00:00: vagina [place] mg/gram) 00 weekly. Medical vaginal Branch cream estradiol 2020-0 Yes [id number] 2g Insert 2 g Univers (ESTRACE) 3-12 into ity of 0.01 % (0.1 00:00: vagina [place] mg/gram) 00 weekly. Medical vaginal Branch cream estradiol 2020-0 Yes [id number] 2g Insert 2 g Univers (ESTRACE) 3-12 into ity of 0.01 % (0.1 00:00: vagina [place] mg/gram) 00 weekly. Medical vaginal Branch cream estradiol 2020-0 Yes [id number] 2g Insert 2 g Univers (ESTRACE) 3-12 into ity of 0.01 % (0.1 00:00: vagina [place] mg/gram) 00 weekly. Medical vaginal Branch cream estradiol 2020-0 Yes [id number] 2g Insert 2 g Univers (ESTRACE) 3-12 into ity of 0.01 % (0.1 00:00: vagina [place] mg/gram) 00 weekly. Medical vaginal Branch cream estradiol 2020-0 Yes [id number] 2g Insert 2 g Univers (ESTRACE) 3-12 into ity of 0.01 % (0.1 00:00: vagina [place] mg/gram) 00 weekly. Medical vaginal Branch cream estradiol 2020-0 Yes [id number] 2g Insert 2 g Univers (ESTRACE) 3-12 into ity of 0.01 % (0.1 00:00: vagina [place] mg/gram) 00 weekly. Medical vaginal Branch cream estradiol 2020-0 Yes [id number] 2g Insert 2 g Univers (ESTRACE) 3-12 into ity of 0.01 % (0.1 00:00: vagina [place] mg/gram) 00 weekly. Medical vaginal Branch cream estradiol 2020-0 Yes [id number] 2g Insert 2 g Univers (ESTRACE) 3-12 into ity of 0.01 % (0.1 00:00: vagina [place] mg/gram) 00 weekly. Medical vaginal Branch cream estradiol 2020-0 Yes [id number] 2g Insert 2 g Univers (ESTRACE) 3-12 into ity of 0.01 % (0.1 00:00: vagina [place] mg/gram) 00 weekly. Medical vaginal Branch cream trospium 20 2020-0 2020- No [id number] 20mg Take 1 [facility] mg tablet 3-01 13-11 tablet by ity of 00:00: 04:59 mouth 2 [place] 00 :00 (two) Medical times Branch daily for 90 days. trospium 20 2020-0 2020- No [id number] 20mg Take 1 [facility] mg tablet 3-01 13-11 tablet by ity of 00:00: 04:59 mouth 2 [place] 00 :00 (two) Medical times Branch daily for 90 days. trospium 20 2020-0 2020- No [id number] 20mg Take 1 [facility] mg tablet 3- 06-11 tablet by ity of 00:00: 04:59 mouth 2 [place] 00 :00 (two) Medical times Branch daily for 90 days. trospium 20 2020-0 2020- No [id number] 20mg Take 1 [facility] mg tablet 3-12 06-11 tablet by ity of 00:00: 04:59 mouth 2 [place] 00 :00 (two) Medical times Branch daily for 90 days. cephALEXin 2020-0 Yes [id number] Pt is to Univers 250 mg 1-28 start ity of capsule 00:00: taking [place] 00 medication Medical after Branch completion of first dose of antbiotics . Take by mouth daily cephALEXin 2020-0 Yes [id number] Pt is to Univers 250 mg 1-28 start ity of capsule 00:00: taking [place] 00 medication Medical after Branch completion of first dose of antbiotics . Take by mouth daily cephALEXin 2020-0 Yes [id number] Pt is to [facility] 250 mg 1-28 start ity of capsule 00:00: taking [place] 00 medication Medical after Branch completion of first dose of antbiotics . Take by mouth daily cephALEXin 2020-0 Yes [id number] Pt is to Univers 250 mg 1-28 start ity of capsule 00:00: taking [place] 00 medication Medical after Branch completion of first dose of antbiotics . Take by mouth daily cephALEXin 2020-0 Yes [id number] Pt is to [facility] 250 mg 1-28 start ity of capsule 00:00: taking [place] 00 medication Medical after Branch completion of first dose of antbiotics . Take by mouth daily cephALEXin 2020-0 Yes [id number] Pt is to [facility] 250 mg 1-28 start ity of capsule 00:00: taking [place] 00 medication Medical after Branch completion of first dose of antbiotics . Take by mouth daily cephALEXin 2020-0 Yes [id number] Pt is to [facility] 250 mg 1-28 start ity of capsule 00:00: taking [place] 00 medication Medical after Branch completion of first dose of antbiotics . Take by mouth daily cephALEXin 2020-0 Yes [id number] Pt is to [facility] 250 mg 1-28 start ity of capsule 00:00: taking [place] 00 medication Medical after Branch completion of first dose of antbiotics . Take by mouth daily cephALEXin 2020-0 Yes [id number] Pt is to [facility] 250 mg 1-28 start ity of capsule 00:00: taking [place] 00 medication Medical after Branch completion of first dose of antbiotics . Take by mouth daily cephALEXin 2020-0 Yes [id number] Pt is to [facility] 250 mg 1-28 start ity of capsule 00:00: taking [place] 00 medication Medical after Branch completion of first dose of antbiotics . Take by mouth daily cephALEXin 2020-0 Yes [id number] Pt is to [facility] 250 mg 1-28 start ity of capsule 00:00: taking [place] 00 medication Medical after Branch completion of first dose of antbiotics . Take by mouth daily cephALEXin 2020-0 No [id number] Pt is to [facility] 250 mg 03-07 start ity of capsule 00:00: 00:00 taking [place] 00 :00 medication Medical after Branch completion of first dose of antbiotics . Take by mouth daily atorvastati Yes 10mg Take 10 mg Univers n 10 mg -27 by mouth ity of tablet 20:39: at [place] [address] bedtime. Medical Branch Fluticasone Yes 1{puff} Inhale 1 Univers -Salmeterol 1-27 Puff every it y of (ADVAIR 20:39: 12 [place] DISKUS) 26 (twelve) Medical 100-50 hours. Branch mcg/dose inhalation disk ibandronate Yes 150mg Take 150 U nivers 150 mg 1-27 mg by ity of tablet 20:39: mouth once [place] every Medical month. Branch Dexlansopra Yes Take by Uni vers zole 1-27 mouth. ity of (DEXILANT) 20:39: [place] 60 mg 26 Medical capsule Branch multivit-mi Yes Take by Uni vers ns 1-27 mouth ity of no.63/iron/ 20:39: daily. [place] folic 26 Medical (M-VIT Branch ORAL) levothyroxi Yes 200ug Take 200 U nivers ne 200 mcg 1-27 mcg by ity of tablet 20:39: mouth [place] every Medical morning. Branch levothyroxi Yes 25ug Take 25 Uni vers ne 50 mcg 1-27 mcg by ity of tablet 20:39: mouth [place] 26 every Medical morning. Branch For total of 225 albuterol Yes 1{puff} Inhale 1 U nivers sulfate 1-27 Puff as ity of (PROAIR HFA 20:39: needed. [facility] as INHALE) 26 Medical Branch IBUPROFEN Yes 1{tbl} Take 1 Univ ers ORAL 1-27 tablet by ity of 20:39: mouth as [place] needed. Medical Branch atorvastati Yes 10mg Take 10 mg Univers n 10 mg -27 by mouth ity of tablet 20:39: at [place] [address] bedtime. Medical Branch Fluticasone Yes 1{puff} Inhale 1 Univers -Salmeterol 1-27 Puff every it y of (ADVAIR 20:39: 12 [place] DISKUS) 26 (twelve) Medical 100-50 hours. Branch mcg/dose inhalation disk ibandronate 2019-0 Yes 150mg Take 150 U nivers 150 mg 1-27 mg by ity of tablet 20:39: mouth once [place] 26 every Medical month. Branch Dexlansopra 2019-0 Yes Take by Uni vers zole 1-27 mouth. ity of (DEXILANT) 20:39: [place] 60 mg 26 Medical capsule Branch multivit-mi 0 Yes Take by Uni vers ns 1-27 mouth ity of no.63/iron/ 20:39: daily. [place] folic 26 Medical (M-VIT Branch ORAL) levothyroxi 2019-0 Yes 200ug Take 200 U nivers ne 200 mcg 1-27 mcg by ity of tablet 20:39: mouth [place] 26 every Medical morning. Branch levothyroxi 2019-0 Yes 25ug Take 25 Uni vers ne 50 mcg 1-27 mcg by ity of tablet 20:39: mouth [place] 26 every Medical morning. Branch For total of 225 albuterol 0 Yes 1{puff} Inhale 1 U nivers sulfate 1-27 Puff as ity of (PROAIR HFA 20:39: needed. [facility] as INHALE) 26 Medical Branch IBUPROFEN 2019-0 Yes 1{tbl} Take 1 Univ ers ORAL 1-27 tablet by ity of 20:39: mouth as [place] 26 needed. Medical Branch atorvastati 2019-0 Yes 10mg Take 10 mg Univers n 10 mg 1-27 by mouth ity of tablet 20:39: at [place] bedtime. Medical Branch Fluticasone 2019-0 Yes 1{puff} Inhale 1 Univers -Salmeterol 1-27 Puff every it y of (ADVAIR 20:39: 12 [place] DISKUS) 26 (twelve) Medical 100-50 hours. Branch mcg/dose inhalation disk ibandronate 2019-0 Yes 150mg Take 150 U nivers 150 mg 1-27 mg by ity of tablet 20:39: mouth once [place] 26 every Medical month. Branch Dexlansopra 2019-0 Yes Take by Uni vers zole 1-27 mouth. ity of (DEXILANT) 20:39: [place] 60 mg 26 Medical capsule Branch multivit-mi 2020-0 Yes Take by Uni vers ns 1-27 mouth ity of no.63/iron/ 20:39: daily. [place] folic 26 Medical (M-VIT Branch ORAL) levothyroxi 2020-0 Yes 200ug Take 200 U nivers ne 200 mcg 1-27 mcg by ity of tablet 20:39: mouth [place] 26 every Medical morning. Branch levothyroxi 2019-0 Yes 25ug Take 25 Uni vers ne 50 mcg 1-27 mcg by ity of tablet 20:39: mouth [place] 26 every Medical morning. Branch For total of 225 albuterol 2020-0 Yes 1{puff} Inhale 1 U nivers sulfate 1-27 Puff as ity of (PROAIR HFA 20:39: needed. [place] as INHALE) 26 Medical Branch IBUPROFEN 2019-0 Yes 1{tbl} Take 1 Univ ers ORAL 1-27 tablet by ity of 20:39: mouth as [place] 26 needed. Medical Branch atorvastati 2019-0 Yes 10mg Take 10 mg Univers n 10 mg 1-27 by mouth ity of tablet 20:39: at [place] 26 bedtime. Medical Branch Fluticasone 2020-0 Yes 1{puff} Inhale 1 [facility] -Salmeterol 1-27 Puff every it y of (ADVAIR 20:39: 12 [place] DISKUS) 26 (twelve) Medical 100-50 hours. Branch mcg/dose inhalation disk ibandronate 2019-0 Yes 150mg Take 150 U nivers 150 mg 1-27 mg by ity of tablet 20:39: mouth once [place] 26 every Medical month. Branch Dexlansopra 2020-0 Yes Take by Uni vers zole 1-27 mouth. ity of (DEXILANT) 20:39: [place] 60 mg 26 Medical capsule Branch multivit-mi 2019-0 Yes Take by Uni vers ns 1-27 mouth ity of no.63/iron/ 20:39: daily. [place] folic 26 Medical (M-VIT Branch ORAL) levothyroxi 2019-0 Yes 200ug Take 200 U nivers ne 200 mcg 1-27 mcg by ity of tablet 20:39: mouth [place] 26 every Medical morning. Branch levothyroxi 2020-0 Yes 25ug Take 25 Uni vers ne 50 mcg 1-27 mcg by ity of tablet 20:39: mouth [place] 26 every Medical morning. Branch For total of 225 albuterol 2020-0 Yes 1{puff} Inhale 1 U nivers sulfate 1-27 Puff as ity of (PROAIR HFA 20:39: needed. [facility] as INHALE) 26 Medical Branch IBUPROFEN 0 Yes 1{tbl} Take 1 Univ ers ORAL 1-27 tablet by ity of 20:39: mouth as [place] needed. Medical Branch atorvastati Yes 10mg Take 10 mg [facility] n 10 mg 1-27 by mouth ity of tablet 20:39: at [place] bedtime. Medical Branch Fluticasone Yes 1{puff} Inhale 1 [facility] -Salmeterol 1-27 Puff every it y of (ADVAIR 20:39: 12 [place] DISKUS) 26 (twelve) Medical 100-50 hours. Branch mcg/dose inhalation disk ibandronate 0 Yes 150mg Take 150 U nivers 150 mg 1-27 mg by ity of tablet 20:39: mouth once [place] 26 every Medical month. Branch Dexlansopra Yes Take by Uni vers zole 1-27 mouth. ity of (DEXILANT) 20:39: [place] 60 mg 26 Medical capsule Branch multivit-mi Yes Take by Uni vers ns 1-27 mouth ity of no.63/iron/ 20:39[place] Medical (M-VIT Branch ORAL) levothyroxi 0 Yes 200ug Take 200 U nivers ne 200 mcg 1-27 mcg by ity of tablet 20:39: mouth [place] 26 every Medical morning. Branch levothyroxi 0 Yes 25ug Take 25 Uni vers ne 50 mcg 1-27 mcg by ity of tablet 20:39: mouth [place] 26 every Medical morning. Branch For total of 225 albuterol 0 Yes 1{puff} Inhale 1 U nivers sulfate 1-27 Puff as ity of (PROAIR HFA 20:39: needed. [facility] as INHALE) 26 Medical Branch IBUPROFEN 0 Yes 1{tbl} Take 1 Univ ers ORAL 1-27 tablet by ity of 20:39: mouth as [place] 26 needed. Medical Branch atorvastati Yes 10mg Take 10 mg [facility] n 10 mg 1-27 by mouth ity of tablet 20:39: at [place] bedtime. Medical Branch Fluticasone 2020-0 Yes 1{puff} Inhale 1 Univers -Salmeterol 1-27 Puff every it y of (ADVAIR 20:39: 12 [place] DISKUS) 26 (twelve) Medical 100-50 hours. Branch mcg/dose inhalation disk ibandronate 2019-0 Yes 150mg Take 150 U nivers 150 mg 1-27 mg by ity of tablet 20:39: mouth once [place] 26 every Medical month. Branch Dexlansopra 0 Yes Take by Uni vers zole 1-27 mouth. ity of (DEXILANT) 20:39: [place] 60 mg 26 Medical capsule Branch multivit-mi Yes Take by Uni vers ns 1-27 mouth ity of no.63/iron/ 20:39: [place]. [place] 26 Medical (M-VIT Branch ORAL) levothyroxi 2019-0 Yes 200ug Take 200 U nivers ne 200 mcg 1-27 mcg by ity of tablet 20:39: mouth [place] 26 every Medical morning. Branch levothyroxi 0 Yes 25ug Take 25 Uni vers ne 50 mcg 1-27 mcg by ity of tablet 20:39: mouth [place] 26 every Medical morning. Branch For total of 225 albuterol Yes 1{puff} Inhale 1 U nivers sulfate 1-27 Puff as ity of (PROAIR HFA 20:39: needed. [facility] as INHALE) 26 Medical Branch IBUPROFEN Yes 1{tbl} Take 1 Univ ers ORAL 1-27 tablet by ity of 20:39: mouth as [place] 26 needed. Medical Branch atorvastati Yes 10mg Take 10 mg [facility] n 10 mg 1-27 by mouth ity of tablet 20:39: at [place] 26 bedtime. Medical Branch Fluticasone 2019-0 Yes 1{puff} Inhale 1 Univers -Salmeterol 1-27 Puff every it y of (ADVAIR 20:39: 12 [place] DISKUS) 26 (twelve) Medical 100-50 hours. Branch mcg/dose inhalation disk ibandronate 2019-0 Yes 150mg Take 150 U nivers 150 mg 1-27 mg by ity of tablet 20:39: mouth once [place] 26 every Medical month. Branch Dexlansopra Yes Take by Uni vers zole 1-27 mouth. ity of (DEXILANT) 20:39: [place] 60 mg 26 Medical capsule Branch multivit-mi 2019-0 Yes Take by Uni vers ns 1-27 mouth ity of no.63/iron/ 20:39: [place]. [place] 26 Medical (M-VIT Branch ORAL) levothyroxi 2019-0 Yes 200ug Take 200 U nivers ne 200 mcg 1-27 mcg by ity of tablet 20:39: mouth [place] 26 every Medical morning. Branch levothyroxi 2019-0 Yes 25ug Take 25 Uni vers ne 50 mcg 1-27 mcg by ity of tablet 20:39: mouth [place] 26 every Medical morning. Branch For total of 225 albuterol 0 Yes 1{puff} Inhale 1 U nivers sulfate 1-27 Puff as ity of (PROAIR HFA 20:39: needed. [facility] as INHALE) 26 Medical Branch IBUPROFEN 2019-0 Yes 1{tbl} Take 1 Univ ers ORAL 1-27 tablet by ity of 20:39: mouth as [place] 26 needed. Medical Branch atorvastati 0 Yes 10mg Take 10 mg [facility] n 10 mg 1-27 by mouth ity of tablet 20:39: at [place] 26 bedtime. Medical Branch Fluticasone 0 Yes 1{puff} Inhale 1 [facility] -Salmeterol 1-27 Puff every it y of (ADVAIR 20:39: 12 [place] DISKUS) 26 (twelve) Medical 100-50 hours. Branch mcg/dose inhalation disk ibandronate 2019-0 Yes 150mg Take 150 U nivers 150 mg 1-27 mg by ity of tablet 20:39: mouth once [place] 26 every Medical month. Branch Dexlansopra 2019-0 Yes Take by Uni vers zole 1-27 mouth. ity of (DEXILANT) 20:39: [place] 60 mg 26 Medical capsule Branch multivit-mi 0 Yes Take by Uni vers ns 1-27 mouth ity of no.63/iron/ 20:39: daily. [place] 26 Medical (M-VIT Branch ORAL) levothyroxi 2019-0 Yes 200ug Take 200 U nivers ne 200 mcg 1-27 mcg by ity of tablet 20:39: mouth [place] 26 every Medical morning. Branch levothyroxi 2019-0 Yes 25ug Take 25 Uni vers ne 50 mcg 1-27 mcg by ity of tablet 20:39: mouth [place] 26 every Medical morning. Branch For total of 225 albuterol 2019-0 Yes 1{puff} Inhale 1 U nivers sulfate 1-27 Puff as ity of (PROAIR HFA 20:39: needed. [facility] as INHALE) 26 Medical Branch IBUPROFEN 0 Yes 1{tbl} Take 1 Univ ers ORAL 1-27 tablet by ity of 20:39: mouth as [place] 26 needed. Medical Branch atorvastati Yes 10mg Take 10 mg [facility] n 10 mg 1-27 by mouth ity of tablet 20:39: at [place] 26 bedtime. Medical Branch Fluticasone Yes 1{puff} Inhale 1 Univers -Salmeterol 1-27 Puff every it y of (ADVAIR 20:39: 12 [place] DISKUS) 26 (twelve) Medical 100-50 hours. Branch mcg/dose inhalation disk ibandronate 2019-0 Yes 150mg Take 150 U nivers 150 mg 1-27 mg by ity of tablet 20:39: mouth once [place] 26 every Medical month. Branch Dexlansopra 0 Yes Take by Uni vers zole 1-27 mouth. ity of (DEXILANT) 20:39: [place] 60 mg 26 Medical capsule Branch multivit-mi 0 Yes Take by Uni vers ns 1-27 mouth ity of no.63/iron/ 20:39: daily. [place] 26 Medical (M-VIT Branch ORAL) levothyroxi 2019-0 Yes 200ug Take 200 U nivers ne 200 mcg 1-27 mcg by ity of tablet 20:39: mouth [place] 26 every Medical morning. Branch levothyroxi 2019-0 Yes 25ug Take 25 Uni vers ne 50 mcg 1-27 mcg by ity of tablet 20:39: mouth [place] 26 every Medical morning. Branch For total of 225 albuterol 0 Yes 1{puff} Inhale 1 U nivers sulfate 1-27 Puff as ity of (PROAIR HFA 20:39: needed. [facility] as INHALE) 26 Medical Branch IBUPROFEN 0 Yes 1{tbl} Take 1 Univ ers ORAL 1-27 tablet by ity of 20:39: mouth as [place] 26 needed. Medical Branch atorvastati Yes 10mg Take 10 mg [facility] n 10 mg 1-27 by mouth ity of tablet 20:39: at [place] 26 bedtime. Medical Branch Fluticasone 2020-0 Yes 1{puff} Inhale 1 Univers -Salmeterol 1-27 Puff every it y of (ADVAIR 20:39: 12 [place] DISKUS) 26 (twelve) Medical 100-50 hours. Branch mcg/dose inhalation disk ibandronate 2020-0 Yes 150mg Take 150 U nivers 150 mg 1-27 mg by ity of tablet 20:39: mouth once [place] 26 every Medical month. Branch Dexlansopra 2019-0 Yes Take by Uni vers zole 1-27 mouth. ity of (DEXILANT) 20:39: [place] 60 mg 26 Medical capsule Branch multivit-mi 2019-0 Yes Take by Uni vers ns 1-27 mouth ity of no.63/iron/ 20:39: daily. [place] 26 Medical (M-VIT Branch ORAL) levothyroxi 2019-0 Yes 200ug Take 200 U nivers ne 200 mcg 1-27 mcg by ity of tablet 20:39: mouth [place] 26 every Medical morning. Branch levothyroxi 2019-0 Yes 25ug Take 25 Uni vers ne 50 mcg 1-27 mcg by ity of tablet 20:39: mouth [place] 26 every Medical morning. Branch For total of 225 albuterol 2019-0 Yes 1{puff} Inhale 1 U nivers sulfate 1-27 Puff as ity of (PROAIR HFA 20:39: needed. [facility] as INHALE) 26 Medical Branch IBUPROFEN 2019-0 Yes 1{tbl} Take 1 Univ ers ORAL 1-27 tablet by ity of 20:39: mouth as [place] 26 needed. Medical Branch atorvastati 2019-0 Yes 10mg Take 10 mg [facility] n 10 mg 1-27 by mouth ity of tablet 20:39: at [place] 26 bedtime. Medical Branch Fluticasone 2020-0 Yes 1{puff} Inhale 1 [facility] -Salmeterol 1-27 Puff every it y of (ADVAIR 20:39: 12 [place] DISKUS) 26 (twelve) Medical 100-50 hours. Branch mcg/dose inhalation disk ibandronate 2020-0 Yes 150mg Take 150 U nivers 150 mg 1-27 mg by ity of tablet 20:39: mouth once [place] 26 every Medical month. Branch Dexlansopra 2019-0 Yes Take by Uni vers zole 1-27 mouth. ity of (DEXILANT) 20:39: [place] 60 mg 26 Medical capsule Branch multivit-mi 0 Yes Take by Uni vers ns 1-27 mouth ity of no.63/iron/ 20:39: daily. [place] 26 Medical (M-VIT Branch ORAL) levothyroxi 2019-0 Yes 200ug Take 200 U nivers ne 200 mcg 1-27 mcg by ity of tablet 20:39: mouth [place] 26 every Medical morning. Branch levothyroxi 2019-0 Yes 25ug Take 25 Uni vers ne 50 mcg 1-27 mcg by ity of tablet 20:39: mouth [place] 26 every Medical morning. Branch For total of 225 albuterol 0 Yes 1{puff} Inhale 1 U nivers sulfate 1-27 Puff as ity of (PROAIR HFA 20:39: needed. [facility] as INHALE) 26 Medical Branch IBUPROFEN 2019-0 Yes 1{tbl} Take 1 Univ ers ORAL 1-27 tablet by ity of 20:39: mouth as [place] 26 needed. Medical Branch atorvastati 0 Yes 10mg Take 10 mg [facility] n 10 mg 1-27 by mouth ity of tablet 20:39: at [place] 26 bedtime. Medical Branch Fluticasone 2019-0 Yes 1{puff} Inhale 1 Univers -Salmeterol 1-27 Puff every it y of (ADVAIR 20:39: 12 [place] DISKUS) 26 (twelve) Medical 100-50 hours. Branch mcg/dose inhalation disk ibandronate 2019-0 Yes 150mg Take 150 U nivers 150 mg 1-27 mg by ity of tablet 20:39: mouth once [place] 26 every Medical month. Branch Dexlansopra 2019-0 Yes Take by Uni vers zole 1-27 mouth. ity of (DEXILANT) 20:39: [place] 60 mg 26 Medical capsule Branch multivit-mi 0 Yes Take by Uni vers ns 1-27 mouth ity of no.63/iron/ 20:39: daily. [place] 26 Medical (M-VIT Branch ORAL) levothyroxi 2019-0 Yes 200ug Take 200 U nivers ne 200 mcg 1-27 mcg by ity of tablet 20:39: mouth [place] 26 every Medical morning. Branch levothyroxi 2020-0 Yes 25ug Take 25 Uni vers ne 50 mcg 1-27 mcg by ity of tablet 20:39: mouth [place] 26 every Medical morning. Branch For total of 225 albuterol 2019-0 Yes 1{puff} Inhale 1 U nivers sulfate 03-06 Puff as ity of (PROAIR HFA 20:39: needed. [facility] as INHALE) 26 Medical Branch IBUPROFEN 2020-0 Yes 1{tbl} Take 1 Univ ers ORAL 03-06 tablet by ity of 20:39: mouth as [place] needed. Medical Branch flu vaccine 2019-0 2020- No .5mL 0.5 mL, Un li 66 yrs and 03-06 Intramuscu it y of up (FLUZONE 19:45: 20:09 lar, ONCE, [place] HIGH-DOSE 00 :00 1 dose, Medical Wed Branch (PF)) 03/06/19 at syringe 0.5 1345, mL Routine cefTRIAXone 2019-0 Yes 1000mg 1,000 mg, Univers (ROCEPHIN) 03-06 IV ity of 1,000 mg in 17:08: Piggyback, [place] NaCl 0.9% 00 Q24H ABX, Medic al (NS) 50 mL First dose Bra [facility] MINI-BAG on Wed03/06/19 at 1115, Until Discontinu ed, 50 mL
R margoth for Anti-Infec tive: Documented Infection< br>Documen theodora Infection Site: Urine<br&g t;Duration of Therapy: 7 days cyanocobala 2020-0 Yes 1000ug 1,000 mcg, Univers min 03-06 Subcutaneo ity of (VITAMIN 01:30: [place], Q24H, [place] B12) 00 First dose Medical injection on Sun Branch 1,000 mcg 03/05/19 at 1930, Until Discontinu ed, Routine cyanocobala 2020-0 Yes 1000ug QD Take 1 [facility] min 1-[address] (VITAMIN 00:00: (1,000 mcg [facility] B-12) 1000 00 total) by l MCG tablet mouth daily. cyanocobala 2020-0 Yes 1000ug QD Take 1 [facility] min 1-[address] (VITAMIN 00:00: (1,000 mcg [facility] B-12) 1000 00 total) by l MCG tablet mouth daily. cyanocobala 2020-0 Yes 1000ug QD Take 1 [facility] min 1-[address] (VITAMIN 00:00: (1,000 mcg [facility] B-12) 1000 00 total) by l MCG tablet mouth daily. cyanocobala 2020-0 Yes 1000ug QD Take 1 [facility] min 1-[address] (VITAMIN 00:00: (1,000 mcg [facility] B-12) 1000 00 total) by l MCG tablet mouth daily. vitamin 2020-0 Yes [id number] 1000ug Take 1 Un li B-12 1,000 1-27 tablet by ity of mcg tablet 00:00: mouth [place] 00 daily. Medical Branch lactobacill 2020-0 Yes [id number] 1{tbl} Take 1 Univers us 1-27 tablet by ity of acidophilus 00:00: mouth 2 [facility] as 25 million 00 (two) Medical cell -100 times Branch mg captab daily. vitamin 2020-0 Yes [id number] 1000ug Take 1 Un li B-12 1,000 1-27 tablet by ity of mcg tablet 00:00: mouth [place] 00 daily. Medical Branch lactobacill 2020-0 Yes [id number] 1{tbl} Take 1 Univers us 1-27 tablet by ity of acidophilus 00:00: mouth 2 [place] as 25 million 00 (two) Medical cell -100 times Branch mg captab daily. vitamin 2020-0 Yes [id number] 1000ug Take 1 Un li B-12 1,000 1-27 tablet by ity of mcg tablet 00:00: mouth [place] 00 daily. Medical Branch lactobacill 2020-0 Yes [id number] 1{tbl} Take 1 [facility] us 1-27 tablet by ity of acidophilus 00:00: mouth 2 [facility] as 25 million 00 (two) Medical cell -100 times Branch mg captab daily. vitamin 2020-0 Yes [id number] 1000ug Take 1 Un li B-12 1,000 1-27 tablet by ity of mcg tablet 00:00: mouth [place] 00 daily. Medical Branch lactobacill 2020-0 Yes [id number] 1{tbl} Take 1 [facility] us 1-27 tablet by ity of acidophilus 00:00: mouth 2 [facility] as 25 million 00 (two) Medical cell -100 times Branch mg captab daily. vitamin 2020-0 Yes [id number] 1000ug Take 1 Un li B-12 1,000 1-27 tablet by ity of mcg tablet 00:00: mouth [place] 00 daily. Medical Branch lactobacill 2020-0 Yes [id number] 1{tbl} Take 1 [facility] us 1-27 tablet by ity of acidophilus 00:00: mouth 2 [facility] as 25 million 00 (two) Medical cell -100 times Branch mg captab daily. vitamin 2020-0 Yes [id number] 1000ug Take 1 Un li B-12 1,000 1-27 tablet by ity of mcg tablet 00:00: mouth [place] 00 daily. Medical Branch lactobacill 2020-0 Yes [id number] 1{tbl} Take 1 Univers us 1-27 tablet by ity of acidophilus 00:00: mouth 2 [place] as 25 million 00 (two) Medical cell -100 times Branch mg captab daily. vitamin 2020-0 Yes [id number] 1000ug Take 1 Un li B-12 1,000 1-27 tablet by ity of mcg tablet 00:00: mouth [place] 00 daily. Medical Branch lactobacill 2020-0 Yes [id number] 1{tbl} Take 1 Univers us 1-27 tablet by ity of acidophilus 00:00: mouth 2 [facility] as 25 million 00 (two) Medical cell -100 times Branch mg captab daily. vitamin 2020-0 Yes [id number] 1000ug Take 1 Un li B-12 1,000 1-27 tablet by ity of mcg tablet 00:00: mouth [place] 00 daily. Medical Branch lactobacill 2020-0 Yes [id number] 1{tbl} Take 1 Univers us 1-27 tablet by ity of acidophilus 00:00: mouth 2 [facility] as 25 million 00 (two) Medical cell -100 times Branch mg captab daily. vitamin 2020-0 Yes [id number] 1000ug Take 1 Un li B-12 1,000 1-27 tablet by ity of mcg tablet 00:00: mouth [place] 00 daily. Medical Branch lactobacill 2020-0 Yes [id number] 1{tbl} Take 1 Univers us 1-27 tablet by ity of acidophilus 00:00: mouth 2 [facility] as 25 million 00 (two) Medical cell -100 times Branch mg captab daily. vitamin 2020-0 Yes [id number] 1000ug Take 1 Un li B-12 1,000 1-27 tablet by ity of mcg tablet 00:00: mouth [place] 00 daily. Medical Branch lactobacill 2020-0 Yes [id number] 1{tbl} Take 1 [facility] us 1-27 tablet by ity of acidophilus 00:00: mouth 2 [facility] as 25 million 00 (two) Medical cell -100 times Branch mg captab daily. vitamin 2020-0 Yes [id number] 1000ug Take 1 Un li B-12 1,000 1-27 tablet by ity of mcg tablet 00:00: mouth [place] 00 daily. Medical Branch lactobacill 2020-0 Yes [id number] 1{tbl} Take 1 [facility] us 1-27 tablet by ity of acidophilus 00:00: mouth 2 [facility] as 25 million 00 (two) Medical cell -100 times Branch mg captab daily. vitamin 2020-0 Yes [id number] 1000ug Take 1 Un li B-12 1,000 1-27 tablet by ity of mcg tablet 00:00: mouth [place] 00 daily. Medical Branch lactobacill 2020-0 Yes [id number] 1{tbl} Take 1 [facility] us 1-27 tablet by ity of acidophilus 00:00: mouth 2 [facility] as 25 million 00 (two) Medical cell -100 times Branch mg captab daily. vitamin 2020-0 Yes [id number] 1000ug Take 1 Un li B-12 1,000 1-27 tablet by ity of mcg tablet 00:00: mouth [place] 00 daily. Medical Branch lactobacill 2020-0 Yes [id number] 1{tbl} Take 1 Univers us 1-27 tablet by ity of acidophilus 00:00: mouth 2 [facility] as 25 million 00 (two) Medical cell -100 times Branch mg captab daily. vitamin 2020-0 Yes [id number] 1000ug Take 1 Un li B-12 1,000 1-27 tablet by ity of mcg tablet 00:00: mouth [place] 00 daily. Medical Branch lactobacill 2020-0 Yes [id number] 1{tbl} Take 1 [facility] us 1-27 tablet by ity of acidophilus 00:00: mouth 2 [place] as 25 million 00 (two) Medical cell -100 times Branch mg captab daily. vitamin 2020-0 Yes [id number] 1000ug Take 1 Un li B-12 1,000 1-27 tablet by ity of mcg tablet 00:00: mouth [place] 00 daily. Medical Branch lactobacill 2020-0 Yes [id number] 1{tbl} Take 1 [facility] us 1-27 tablet by ity of acidophilus 00:00: mouth 2 [place] as 25 million 00 (two) Medical cell -100 times Branch mg captab daily. vitamin 2020-0 Yes [id number] 1000ug Take 1 Un li B-12 1,000 1-27 tablet by ity of mcg tablet 00:00: mouth [place] 00 daily. Medical Branch lactobacill 2020-0 Yes [id number] 1{tbl} Take 1 Univers us 1-27 tablet by ity of acidophilus 00:00: mouth 2 [place] as 25 million 00 (two) Medical cell -100 times Branch mg captab daily. vitamin 2020-0 Yes [id number] 1000ug Take 1 Un li B-12 1,000 1-27 tablet by ity of mcg tablet 00:00: mouth [place] 00 daily. Medical Branch lactobacill 2020-0 Yes [id number] 1{tbl} Take 1 Univers us 1-27 tablet by ity of acidophilus 00:00: mouth 2 [place] as 25 million 00 (two) Medical cell -100 times Branch mg captab daily. vitamin 2020-0 Yes [id number] 1000ug Take 1 Un li B-12 1,000 1-27 tablet by ity of mcg tablet 00:00: mouth [place] 00 daily. Medical Branch lactobacill 2020-0 Yes [id number] 1{tbl} Take 1 [facility] us 1-27 tablet by ity of acidophilus 00:00: mouth 2 [facility] as 25 million 00 (two) Medical cell -100 times Branch mg captab daily. vitamin 2020-0 Yes [id number] 1000ug Take 1 Un li B-12 1,000 1-27 tablet by ity of mcg tablet 00:00: mouth [place] 00 daily. Medical Branch lactobacill 2020-0 Yes [id number] 1{tbl} Take 1 [facility] us 1-27 tablet by ity of acidophilus 00:00: mouth 2 [facility] as 25 million 00 (two) Medical cell -100 times Branch mg captab daily. vitamin 2020-0 Yes [id number] 1000ug Take 1 Un li B-12 1,000 1-27 tablet by ity of mcg tablet 00:00: mouth [place] 00 daily. Medical Branch lactobacill 2020-0 Yes [id number] 1{tbl} Take 1 [facility] us 1-27 tablet by ity of acidophilus 00:00: mouth 2 [facility] as 25 million 00 (two) Medical cell -100 times Branch mg captab daily. vitamin 2020-0 Yes [id number] 1000ug Take 1 Un li B-12 1,000 1-27 tablet by ity of mcg tablet 00:00: mouth [place] 00 daily. Medical Branch lactobacill 2019-0 Yes [id number] 1{tbl} Take 1 Univers us 1-27 tablet by ity of acidophilus 00:00: mouth 2 [place] as 25 million 00 (two) Medical cell -100 times Branch mg captab daily. cefdinir 2019-0 2020- No [id number] 600mg Take 2 U nivers 300 mg 03-06- capsules ity of capsule 00:00: 05:59 by mouth [place] 00 :00 daily for Medical 5 days. Branch cefdinir 2019-0 2020- No [id number] 600mg Take 2 U nivers 300 mg 03-06- capsules ity of capsule 00:00: 05:59 by mouth [place] 00 :00 daily for Medical 5 days. Branch cefdinir 2019-0 2020- No [id number] 600mg Take 2 U nivers 300 mg 03-06- capsules ity of capsule 00:00: 05:59 by mouth [place] 00 :00 daily for Medical 5 days. Branch cefTRIAXone 2020- No 1000mg 1,000 mg, Univers (ROCEPHIN) 03-05 IV ity of 1,000 mg in 15:00: 22:50 [place], [place] NaCl 0.9% 00 :39 Q12H ABX, Medic al (NS) 50 mL First dose Bra [facility] MINI-BAG on [place] 03/05/19 at 0900, Until Discontinu ed, 50 mL
R margoth for Anti-Infec tive: Documented Infection< br>Documen theodora Infection Site: Urine<br&g t;Duration of Therapy: 7 days acetaminoph 2019-0 Yes 650mg 650 mg, Un li en 03-05 Oral, ity of (TYLENOL) 00:31: Q4HPRN, [place] tablet 650 06 Starting Medic al mg Sat Branch 03/04/19 at 1831, Until Discontinu ed, Routine, Pain (scale 1-3), Temp > 38.5 C doxycycline 2020-0 2020- No 100mg 100 mg, IV Univers (VIBRAMYCIN 03-04 Piggyback, i ty of ) 100 mg in 21:00: 22:42 Q12H ABX, [place] NaCl 0.9% 00 :07 First dose Medi kj (NS) 100 mL on [facility] Branch MINI-BAG 03/04/19 at 1500, Until Discontinu ed, 100 mL
R margoth for Anti-Infec tive: Documented Infection< br>Documen theodora Infection Site: Respirator y
Durat ion of Therapy: 7 days levothyroxi 2020-0 Yes 25ug 25 mcg, Uni vers ne 1-25 Oral, ity of (SYNTHROID) 12:00: QAM-0600, [place] tablet 25 00 First dose Medi kj mcg on [facility] 03/04/19 at 0600, Until Discontinu ed, Routine levothyroxi 2019-0 Yes 200ug 200 mcg, U nivers ne 1-25 Oral, ity of (SYNTHROID) 12:00: QAM-0600, [place] tablet 200 00 First dose Med ical mcg on [facility] Branch 03/04/19 at 0600, Until Discontinu ed, Routine doxycycline 2020-0 2020- No 100mg 100 mg, IV Univers (VIBRAMYCIN 03-04 Piggyback, i ty of ) 100 mg in 08:30: 17:54 Q12H [facility], [place] NaCl 0.9% 00 :03 First dose Medi kj (NS) 100 mL on [facility] Branch MINI-BAG 03/04/19 at 0230, Until Discontinu ed, 100 mL
R margoth for Anti-Infec tive: Documented Infection< br>Documen theodora Infection Site: Respirator y
Durat ion of Therapy: 7 days NaCl 0.9% 2020-0 2020- No 1000mL at 100 Uni vers (NS) IV 03-04 01-26 mL/hr, IV ity of infusion 07:45: 23:57 Infusion, [place] as 1,000 mL 00 :05 CONTINUOUS Medic al , Starting Branch [facility] 03/04/19 at 0145, Until [place] 03/05/19 at 1757, Routine iohexol 2020-0 2020- No 120mL 120 mL, Unive rs (OMNIPAQUE 1-25 01-25 Intravenou it y of 350 07:30: 07:19 s, ONCE, 1 [place] BULK-100 00 :00 dose, Sat Medica l mL) 03/04/19 at Branch injection 0130, 120 mL Routine NaCl 0.9% 2020-0 2020- No 2000mL at 999 Uni vers (NS) bolus 1-25 01-25 mL/hr, ity of infusion 07:30: 07:30 2,000 mL, [facility] as 2,000 mL 00 :00 IV Medical Piggyback, Branch ONCE, 1 dose, 03/04/19 at 0130, STAT ibandronate 2020-0 Yes 150mg Take 150 U nivers 150 mg 1-25 mg by ity of tablet 07:23: mouth once [place] [address] every Medical month. Branch Dexlansopra 2019-0 Yes Take by Uni vers zole 1-25 mouth. ity of (DEXILANT) 07:23: [place] 60 mg 47 Medical capsule Branch multivit-mi 2019-0 Yes Take by Uni vers ns 1-25 mouth ity of no.63/iron/ 07:23: daily. [place] folic 47 Medical (M-VIT Branch ORAL) levothyroxi 2019-0 Yes 200ug Take 200 U nivers ne 200 mcg 1-25 mcg by ity of tablet 07:23: mouth [place] [address] every Medical morning. Branch levothyroxi 2019-0 Yes 25ug Take 25 Uni vers ne 50 mcg 1-25 mcg by ity of tablet 07:23: mouth [place] [address] every Medical morning. Branch For total of 225 albuterol 2020-0 Yes 1{puff} Inhale 1 U nivers sulfate 1-25 Puff as ity of (PROAIR HFA 07:23: needed. [facility] as INHALE) 47 Medical Branch IBUPROFEN 2020-0 Yes 1{tbl} Take 1 Univ ers ORAL 1-25 tablet by ity of 07:23: mouth as [place] [address] needed. Medical Branch atorvastati 2020-0 Yes 10mg Take 10 mg Univers n 10 mg 1-25 by mouth ity of tablet 07:23: at [place] [address] bedtime. Medical Branch Fluticasone 2020-0 Yes 1{puff} Inhale 1 Univers -Salmeterol 1-25 Puff every it y of (ADVAIR 07:23: 12 [place] DISKUS) 47 (twelve) Medical 100-50 hours. Branch mcg/dose inhalation disk ibandronate 2020-0 Yes 150mg Take 150 U nivers 150 mg 1-25 mg by ity of tablet 07:23: mouth once [place] [address] every Medical month. Branch Dexlansopra 2019-0 Yes Take by Uni vers zole 1-25 mouth. ity of (DEXILANT) 07:23: [place] 60 mg 47 Medical capsule Branch multivit-mi 2019-0 Yes Take by Uni vers ns 1-25 mouth ity of no.63/iron/ 07:23: daily. [place] folic 47 Medical (M-VIT Branch ORAL) levothyroxi 2019-0 Yes 200ug Take 200 U nivers ne 200 mcg 1-25 mcg by ity of tablet 07:23: mouth [place] [address] every Medical morning. Branch levothyroxi 2019-0 Yes 25ug Take 25 Uni vers ne 50 mcg 1-25 mcg by ity of tablet 07:23: mouth [place] [address] every Medical morning. Branch For total of 225 albuterol 2020-0 Yes 1{puff} Inhale 1 U nivers sulfate 1-25 Puff as ity of (PROAIR HFA 07:23: needed. [facility] as INHALE) 47 Medical Branch IBUPROFEN 2019-0 Yes 1{tbl} Take 1 Univ ers ORAL 1-25 tablet by ity of 07:23: mouth as [place] [address] needed. Medical Branch atorvastati 2019-0 Yes 10mg Take 10 mg Univers n 10 mg 1-25 by mouth ity of tablet 07:23: at [place] [address] bedtime. Medical Branch Fluticasone 2020-0 Yes 1{puff} Inhale 1 Univers -Salmeterol 1-25 Puff every it y of (ADVAIR 07:23: 12 [place] DISKUS) 47 (twelve) Medical 100-50 hours. Branch mcg/dose inhalation disk lactobacill 2020-0 Yes 1{tbl} 1 tablet, Univers us 1-25 Oral, BID, ity of acidophilus 05:30: First dose [place] (ACIDOPHILL 00 on Fri Medica l US) 25 03/03/19 at Branch million 2330, cell -100 Until mg captab 1 Discontinu tablet ed, Routine ondansetron 2020-0 Yes 4mg 4 mg, Slow Univers (ZOFRAN 1-25 IV Push, ity of (PF)) 05:23: Q6HPRN, [place] injection 4 27 Starting Medi kj mg [facility] 03/03/19 at 2323, Until Discontinu ed, Routine, Nausea and Vomiting (N/V) NaCl 0.9% 2019- No 1000mL at 999 Uni vers (NS) bolus 03-04-25 mL/hr, ity of infusion 03:15: 03:54 1,000 mL, [facility] as 1,000 mL 00 :00 [facility], [facility] 03/03/19 at 2115, STAT cefTRIAXone 2019- No 1000mg 1,000 mg, Univers (ROCEPHIN) 03-04 IV ity of 1,000 mg in 03:00: 02:53 [place], [place] NaCl 0.9% 00 :00 ONCE, 1 Medical (NS) 50 mL dose, Fri Bran ch MINI-BAG 03/03/19 at 2100, 50 mL
Reas on for Anti-Infec tive: Documented Infection< br>Documen theodora Infection Site: Urine
D uration of Therapy: 7 days ibuprofen 2020- No 600mg 600 mg, Uni vers (IBU) 03-04-25 Oral, ity of tablet 600 02:45: 01:34 ONCE, 1 [facility] as mg 00 :00 dose, [facility] 03/03/19 at Branch 2045, JOHN levothyroxi 2019-0 Yes 25ug Take 25 Uni vers ne 50 mcg 1-24 mcg by ity of tablet 16:30: mouth [place] 10 every Medical morning. Branch For total of 225 IBUPROFEN 2019-0 Yes 1{tbl} Take 1 Univ ers ORAL 1-24 tablet by ity of 16:30: mouth as [place] 10 needed. Medical Branch levothyroxi 2019-0 Yes 25ug Take 25 Uni vers ne 50 mcg 1-24 mcg by ity of tablet 16:30: mouth [place] 10 every Medical morning. Branch For total of 225 IBUPROFEN 2019-0 Yes 1{tbl} Take 1 Univ ers ORAL 1-24 tablet by ity of 16:30: mouth as [place] 10 needed. Medical Branch cyanocobala 2018-02 Yes [id number] 1000ug inject 1 [facility] min 0-01 mL under ity of (VITAMIN 00:00: the skin [place] B-12) 1,000 00 once every Me dical mcg/mL month. Branch injection cyanocobala 2018-02 Yes [id number] 1000ug inject 1 [facility] min 0-01 mL under ity of (VITAMIN 00:00: the skin [place] B-12) 1,000 00 once every Me dical mcg/mL month. Branch injection cyanocobala 2018-02 Yes [id number] 1000ug inject 1 [facility] min 0-01 mL under ity of (VITAMIN 00:00: the skin [place] B-12) 1,000 00 once every Me dical mcg/mL month. Branch injection cyanocobala 2018-02 Yes [id number] 1000ug inject 1 [facility] min 0-01 mL under ity of (VITAMIN 00:00: the skin [place] B-12) 1,000 00 once every Me dical mcg/mL month. Branch injection cyanocobala 2018-02 Yes [id number] 1000ug inject 1 [facility] min 0-01 mL under ity of (VITAMIN 00:00: the skin [place] B-12) 1,000 00 once every Me dical mcg/mL month. Branch injection cyanocobala 2018-02 Yes [id number] 1000ug inject 1 [facility] min 0-01 mL under ity of (VITAMIN 00:00: the skin [place] B-12) 1,000 00 once every Me dical mcg/mL month. Branch injection cyanocobala 2018-02 Yes [id number] 1000ug inject 1 [facility] min 0-01 mL under ity of (VITAMIN 00:00: the skin [place] B-12) 1,000 00 once every Me dical mcg/mL month. Branch injection cyanocobala 2018-02 Yes [id number] 1000ug inject 1 [facility] min 0-01 mL under ity of (VITAMIN 00:00: the skin [place] B-12) 1,000 00 once every Me dical mcg/mL month. Branch injection cyanocobala 2018-02 Yes [id number] 1000ug inject 1 [facility] min 0-01 mL under ity of (VITAMIN 00:00: the skin [place] B-12) 1,000 00 once every Me dical mcg/mL month. Branch injection cyanocobala 2018-02 Yes [id number] 1000ug inject 1 [facility] min 0-01 mL under ity of (VITAMIN 00:00: the skin [place] B-) 1,000 00 once every Me dical mcg/mL month. Branch injection cyanocobala 2018-02 Yes [id number] 1000ug inject 1 [facility] min 0-01 mL under ity of (VITAMIN 00:00: the skin [place] B-) 1,000 00 once every Me dical mcg/mL month. Branch injection cyanocobala 2018-02 Yes [id number] 1000ug inject 1 [facility] min 0-01 mL under ity of (VITAMIN 00:00: the skin [place] B-) 1,000 00 once every Me dical mcg/mL month. Branch injection cyanocobala 2018-02 Yes [id number] 1000ug inject 1 [facility] min 0-01 mL under ity of (VITAMIN 00:00: the skin [place] B-) 1,000 00 once every Me dical mcg/mL month. Branch injection cyanocobala 2018-02 Yes [id number] 1000ug inject 1 [facility] min 0-01 mL under ity of (VITAMIN 00:00: the skin [facility]-) 1,000 00 once every Me dical mcg/mL month. Branch injection cyanocobala 2018-02 2020- No [id number] 1000ug inject 1 Univers min 0-01 01-27 mL under ity of (VITAMIN 00:00: [facility] :00 once every Me dical mcg/mL month. Branch injection cyanocobala 2018-02 2020- No [id number] 1000ug inject 1 [facility] min 0-01 01-27 mL under ity of (VITAMIN 00:00: 00:00 [facility] 1,000 00 :00 once every Me dical mcg/mL month. Branch injection atorvastati Yes 10mg Take 10 mg [facility] n 10 mg 9-18 by mouth ity of tablet 22:32: at [place] 18 bedtime. Medical Branch Fluticasone Yes 1{puff} Inhale 1 Univers -Salmeterol 9-18 Puff every it y of (ADVAIR 22:32: 12 [place] DISKUS) 18 (twelve) Medical 100-50 hours. Branch mcg/dose inhalation disk ibandronate Yes 150mg Take 150 U nivers 150 mg 9-18 mg by ity of tablet 22:32: mouth once [place] 18 every Medical month. Branch Dexlansopra Yes Take by Uni vers zole 9-18 mouth. ity of (DEXILANT) 22:32: [place] 60 mg 18 Medical capsule Branch multivit-mi Yes Take by Uni vers ns 9-18 mouth ity of no.63/iron/ 22:32: daily. [place] f[place] 18 Medical (M-VIT Branch ORAL) levothyroxi Yes 200ug Take 200 U nivers ne 200 mcg 9-18 mcg by ity of tablet 22:32: mouth [place] 18 every Medical morning. Branch levothyroxi Yes 25ug Take 25 Uni vers ne 50 mcg 9-18 mcg by ity of tablet 22:32: mouth [place] 18 every Medical morning. Branch For total of 225 albuterol Yes 1{puff} Inhale 1 U nivers sulfate 9-18 Puff as ity of (PROAIR HFA 22:32: needed. [facility] as INHALE) 18 Medical Branch IBUPROFEN Yes 1{tbl} Take 1 Univ ers ORAL 9-18 tablet by ity of 22:32: mouth as [place] 18 needed. Medical Branch atorvastati Yes 10mg Take 10 mg [facility] n 10 mg 9-18 by mouth ity of tablet 22:32: at [place] 18 bedtime. Medical Branch Fluticasone Yes 1{puff} Inhale 1 Univers -Salmeterol 9-18 Puff every it y of (ADVAIR 22:32: 12 [place] DISKUS) 18 (twelve) Medical 100-50 hours. Branch mcg/dose inhalation disk ibandronate Yes 150mg Take 150 U nivers 150 mg 9-18 mg by ity of tablet 22:32: mouth once [place] 18 every Medical month. Branch Dexlansopra Yes Take by Uni vers zole 9-18 mouth. ity of (DEXILANT) 22:32: [place] 60 mg 18 Medical capsule Branch multivit-mi Yes Take by Uni vers ns 9-18 mouth ity of no.63/iron/ 22:32: daily. [place] 18 Medical (M-VIT Branch ORAL) levothyroxi Yes 200ug Take 200 U nivers ne 200 mcg 9-18 mcg by ity of tablet 22:32: mouth [place] 18 every Medical morning. Branch levothyroxi Yes 25ug Take 25 Uni vers ne 50 mcg 9-18 mcg by ity of tablet 22:32: mouth [place] 18 every Medical morning. Branch For total of 225 albuterol Yes 1{puff} Inhale 1 U nivers sulfate 9-18 Puff as ity of (PROAIR HFA 22:32: needed. [facility] as INHALE) 18 Medical Branch IBUPROFEN Yes 1{tbl} Take 1 Univ ers ORAL 9-18 tablet by ity of 22:32: mouth as [place] 18 needed. Medical Branch atorvastati Yes 10mg Take 10 mg [facility] n 10 mg 9-18 by mouth ity of tablet 22:32: at [place] 18 bedtime. Medical Branch Fluticasone Yes 1{puff} Inhale 1 Univers -Salmeterol 9-18 Puff every it y of (ADVAIR 22:32: 12 [place] DISKUS) 18 (twelve) Medical 100-50 hours. Branch mcg/dose inhalation disk ibandronate Yes 150mg Take 150 U nivers 150 mg 9-18 mg by ity of tablet 22:32: mouth once [place] 18 every Medical month. Branch Dexlansopra Yes Take by Uni vers zole 9-18 mouth. ity of (DEXILANT) 22:32: [place] 60 mg 18 Medical capsule Branch multivit-mi Yes Take by Uni vers ns 9-18 mouth ity of no.63/iron/ 22:32: daily. [place] f[place] 18 Medical (M-VIT Branch ORAL) levothyroxi Yes 200ug Take 200 U nivers ne 200 mcg 9-18 mcg by ity of tablet 22:32: mouth [place] 18 every Medical morning. Branch albuterol Yes 1{puff} Inhale 1 U nivers sulfate 9-18 Puff as ity of (PROAIR HFA 22:32: needed. [facility] as INHALE) 18 Medical Branch atorvastati Yes 10mg Take 10 mg Univers n 10 mg 9-18 by mouth ity of tablet 22:32: at [place] 18 bedtime. Medical Branch Fluticasone Yes 1{puff} Inhale 1 Univers -Salmeterol 9-18 Puff every it y of (ADVAIR 22:32: 12 [place] DISKUS) 18 (twelve) Medical 100-50 hours. Branch mcg/dose inhalation disk ibandronate 2018- Yes 150mg Take 150 U nivers 150 mg 9-18 mg by ity of tablet 22:32: mouth once [place] 18 every Medical month. Branch Dexlansopra Yes Take by Uni vers zole 9-18 mouth. ity of (DEXILANT) 22:32: [place] 60 mg 18 Medical capsule Branch multivit-mi Yes Take by Uni vers ns 9-18 mouth ity of no.63/iron/ 22:32: daily. [place] f[place] 18 Medical (M-VIT Branch ORAL) levothyroxi Yes 200ug Take 200 U nivers ne 200 mcg 9-18 mcg by ity of tablet 22:32: mouth [place] 18 every Medical morning. Branch albuterol Yes 1{puff} Inhale 1 U nivers sulfate 9-18 Puff as ity of (PROAIR HFA 22:32: needed. [facility] as INHALE) 18 Medical Branch FENTanyl PF 2018-0 Yes 25ug 25 mcg, Uni vers (SUBLIMAZE 9-18 Slow IV ity of (PF)) 20:33: Push, PRN [place] injection 30 - SEE Medical 25 mcg INSTRUCTIO Branch NS, 1 dose, Starting 10/26/18 at 1533, Until Discontinu ed, Routine, For pain scale 1-3, PACU FENTanyl PF 2018-0 Yes 25ug 25 mcg, Uni vers (SUBLIMAZE 9-18 Slow IV ity of (PF)) 20:33: Push, [place] injection 30 Q5MIN PRN, Medi kj 25 mcg 4 doses, Branch Starting 10/26/18 at 1533, Until Discontinu ed, Routine, Pain (scale 7-10), PACU FENTanyl PF 2018-0 Yes 25ug 25 mcg, Uni vers (SUBLIMAZE 9-18 Slow IV ity of (PF)) 20:33: Push, [place] injection 30 Q5MIN PRN, Medi kj 25 mcg 4 doses, Branch Starting 10/26/18 at 1533, Until Discontinu ed, Routine, Pain (scale 4-6), PACU ondansetron 2018-0 Yes 4mg 4 mg, Slow Univers (ZOFRAN 10-26 IV Push, ity of (PF)) 20:33: PRN, 1 [place] injection 4 30 dose, Medical mg Starting Branch 10/26/18 at 1533, Until Discontinu ed, Routine, Nausea and Vomiting (N/V), PACU sugammadex 2019- No ONCE INTRA Univers (BRIDION) 10-26 PROCEDURE, ity of injection 20:19: 20:35 Starting [facility] as 00 :59 Wed Medical 10/26/18 at Branch 1519, Until Wed10/26/18 at 1535, Routine, Intra-op ketorolac 2019- No ONCE INTRA U nivers (TORADOL) 10-26 PROCEDURE, ity of injection 20:16: 20:35 Starting [facility] as 00 :59 Wed Medical 10/26/18 at Branch 1516, Until Wed10/26/18 at 1535, Routine, Intra-op ondansetron 2019- No ONCE INTRA Univers (ZOFRAN 10-26 PROCEDURE, ity o f (PF)) 20:14: 20:35 Starting [place] injection 00 :59 Wed Medical 10/26/18 at Branch 1514, Until Wed10/26/18 at 1535, Routine, Intra-op ePHEDrine 2019- No ONCE INTRA U nivers 25 mg/5 mL 10-26 PROCEDURE, it y of (5 mg/mL) 20:11: 20:35 Starting [facility] as syringe 00 :59 [facility] Medical 10/26/18 at Branch 1511, Until Wed10/26/18 at 1535, Routine, Intra-op bupivacaine 2018-0 Yes PRN, Univer s (preserv 10-26 Starting ity of free) 19:52: Wed [place] (SENSORCAIN 00 10/26/18 at Al dicmt E MPF) 0.25 1452, Branch % (2.5 Until mg/mL) Discontinu injection ed, Routine, Intra-op cyanocobala 2018- 2019- No 1000ug 1,000 mcg [facility] min 1,000 10-26 by ity of mcg/mL 19:46: 00:00 Intr[place]cu [place] injection 18 :00 lar route Medic al once every Branch month. cyanocobala 2019-0 2019- No 1000ug 1,000 mcg [facility] min 1,000 10-26 by ity of mcg/mL 19:46: 00:00 Intr[place]cu [place] injection 18 :00 lar route Medic al once every Branch month. atorvastati Yes 10mg Take 10 mg [facility] n 10 mg 9-18 by mouth ity of tablet 19:46: at [place] 14 bedtime. Medical Branch Fluticasone Yes 1{puff} Inhale 1 Univers -Salmeterol 9-18 Puff every it y of (ADVAIR 19:46: 12 [place] DISKUS) 14 (twelve) Medical 100-50 hours. Branch mcg/dose inhalation disk ibandronate 2018- Yes 150mg Take 150 U nivers 150 mg 9-18 mg by ity of tablet 19:46: mouth once [place] 14 every Medical month. Branch Dexlansopra Yes Take by Uni vers zole 9-18 mouth. ity of (DEXILANT) 19:46: [place] 60 mg 14 Medical capsule Branch multivit-mi Yes Take by Uni vers ns 9-18 mouth ity of no.63/iron/ 19:46: daily. [place] folic 14 Medical (M-VIT Branch ORAL) levothyroxi Yes 200ug Take 200 U nivers ne 200 mcg 9-18 mcg by ity of tablet 19:46: mouth [place] 14 every Medical morning. Branch levothyroxi Yes 25ug Take 25 Uni vers ne 50 mcg 9-18 mcg by ity of tablet 19:46: mouth [place] 14 every Medical morning. Branch For total of 225 albuterol Yes 1{puff} Inhale 1 U nivers sulfate 9-18 Puff as ity of (PROAIR HFA 19:46: needed. [facility] as INHALE) 14 Medical Branch IBUPROFEN 0 Yes 1{tbl} Take 1 Univ ers ORAL 9-18 tablet by ity of 19:46: mouth as [place] 14 needed. Medical Branch phenylephri 2019- No ONCE INTRA [facility] ne 1 mg/10 10-26 PROCEDURE, it y of mL in NS 19:37: 20:35 [place] syringe 00 :59 Wed Medical 10/26/18 at Branch 1437, Until 10/26/18 at 1535, Routine, Intra-op ceFAZolin 2019- No ONCE INTRA U nivers (ANCEF) 10-26 PROCEDURE, ity o f injection 19:25: 20:35 Starting [facility] as 00 :59 Wed Medical 10/26/18 at Branch 1425, Until Wed10/26/18 at 1535, JOHN, Intra-op rocuronium 2018- No ONCE INTRA Univers (ZEMURON) 10-26 PROCEDURE, ity of injection 18:47: 20:35 Starting [facility] as 00 :59 Wed Medical 10/26/18 at Branch 1347, Until 10/26/18 at 1535, Routine, Intra-op propofol 2018- No ONCE INTRA Un li injection 10-26 PROCEDURE, ity of 18:47: 20:35 Starting [place] 00 :59 Wed Medical 10/26/18 at Branch 1347, Until 10/26/18 at 1535, Routine, Intra-op lidocaine 2018- No ONCE INTRA U nivers 1% 10-26 PROCEDURE, ity of (XYLOCAINE) 18:47: 20:35 Starting [place] 100 mg/10 00 :59 Wed Medical mL (1 %) 10/26/18 at [facility] h injection 1347, Until Wed10/26/18 at 1535, Routine, Intra-op FENTanyl PF 2018- No ONCE INTRA Univers (SUBLIMAZE 10-26 PROCEDURE, it y of (PF)) 18:47: 20:35 Starting [place] injection 00 :59 Wed Medical 10/26/18 at Branch 1347, Until 10/26/18 at 1535, Routine, Intra-op dexamethaso 2019- No ONCE INTRA Univers ne 10-26 PROCEDURE, ity of (DECADRON 18:45: 20:35 Starting [facility] as PHOSPHATE) 00 :59 Wed Medical injection 10/26/18 at [facility] 1345, Until 10/26/18 at 1535, Routine, Intra-op lactated 2019- No 1000mL at 20 [place] [facility] rs ringers IV 10-26 mL/hr, ity of infusion 16:15: 18:42 1,000 mL, [facility] as 1,000 mL 00 :00 IV Medical Infusion, [place] ONCE, 1 dose, 10/26/18 at 1115, Routine, DSU Pre-op lactated 2019-0 2019- No 1000mL at 20 Unive rs ringers IV -18 09-18 mL/hr, ity of infusion 16:15: 16:32 1,000 mL, [facility] as 1,000 mL 00 :00 IV Medical Infusion, Branch ONCE, 1 dose, 10/26/18 at 1115, Routine, DSU Pre-op atorvastati 2019-0 Yes 10mg Take 10 mg Univers n 10 mg 9-18 by mouth ity of tablet 16:07: at [place] [address] bedtime. Medical Branch Fluticasone 2019-0 Yes 1{puff} Inhale 1 Univers -Salmeterol 9-18 Puff every it y of (ADVAIR 16:07: 12 [place] DISKUS) 17 (twelve) Medical 100-50 hours. Branch mcg/dose inhalation disk ibandronate 2018-0 Yes 150mg Take 150 U nivers 150 mg 9-18 mg by ity of tablet 16:07: mouth once [place] [address] every Medical month. Branch Dexlansopra 2018-0 Yes Take by Uni vers zole 9-18 mouth. ity of (DEXILANT) 16:07: [place] 60 mg 17 Medical capsule Branch multivit-mi 0 Yes Take by Uni vers ns 9-18 mouth ity of no.63/iron/ 16:07: daily. [place] folic 17 Medical (M-VIT Branch ORAL) levothyroxi 2018-0 Yes 200ug Take 200 U nivers ne 200 mcg 9-18 mcg by ity of tablet 16:07: mouth [place] 17 every Medical morning. Branch levothyroxi 2019-0 Yes 25ug Take 25 Uni vers ne 50 mcg 9-18 mcg by ity of tablet 16:07: mouth [place] 17 every Medical morning. Branch For total of 225 albuterol 2018-0 Yes 1{puff} Inhale 1 U nivers sulfate 9-18 Puff as ity of (PROAIR HFA 16:07: needed. [facility] as INHALE) 17 Medical Branch cyanocobala 2018-0 Yes 1000ug 1,000 mcg [facility] min 1,000 9-18 by ity of mcg/mL 16:07: Intramuscu [place] injection 17 lar route Medic al once every Branch month. IBUPROFEN 2019-0 Yes 1{tbl} Take 1 Univ ers ORAL 9-18 tablet by ity of 16:07: mouth as [place] 17 needed. Medical Branch bisacodyl 5 2019-0 Yes [id number] 5mg Take 1 [facility] mg EC 9-18 tablet by ity of tablet 00:00: mouth once [place] 00 daily as Medical needed for Branch Constipati on. traMADol 50 2019-0 Yes [id number] 50mg Take 1 [facility] mg tablet 9-18 tablet by ity o f 00:00: mouth [place] 00 every 6 Medical (six) Branch hours as needed for Pain (scale 7-10). bisacodyl 5 2019-0 Yes [id number] 5mg Take 1 [facility] mg EC 9-18 tablet by ity of tablet 00:00: mouth once [place] 00 daily as Medical needed for Branch Constipati on. traMADol 50 2018-0 Yes [id number] 50mg Take 1 [facility] mg tablet 9-18 tablet by ity o f 00:00: mouth [place] 00 every 6 Medical (six) Branch hours as needed for Pain (scale 7-10). bisacodyl 5 2018-0 Yes [id number] 5mg Take 1 [facility] mg EC 9-18 tablet by ity of tablet 00:00: mouth once [place] 00 daily as Medical needed for Branch Constipati on. traMADol 50 2018-0 Yes [id number] 50mg Take 1 [facility] mg tablet 9-18 tablet by ity o f 00:00: mouth [place] 00 every 6 Medical (six) Branch hours as needed for Pain (scale 7-10). bisacodyl 5 2019-0 Yes [id number] 5mg Take 1 [facility] mg EC 9-18 tablet by ity of tablet 00:00: mouth once [place] 00 daily as Medical needed for Branch Constipati on. traMADol 50 2019-0 Yes [id number] 50mg Take 1 [facility] mg tablet 9-18 tablet by ity o f 00:00: mouth [place] 00 every 6 Medical (six) Branch hours as needed for Pain (scale 7-10). bisacodyl 5 2019-0 Yes [id number] 5mg Take 1 [facility] mg EC 9-18 tablet by ity of tablet 00:00: mouth once [place] 00 daily as Medical needed for Branch Constipati on. traMADol 50 2019-0 Yes [id number] 50mg Take 1 [facility] mg tablet 9-18 tablet by ity o f 00:00: mouth [place] 00 every 6 Medical (six) Branch hours as needed for Pain (scale 7-10). bisacodyl 5 2019-0 Yes [id number] 5mg Take 1 [facility] mg EC 9-18 tablet by ity of tablet 00:00: mouth once [place] 00 daily as Medical needed for Branch Constipati on. traMADol 50 2019-0 Yes [id number] 50mg Take 1 [facility] mg tablet 9-18 tablet by ity o f 00:00: mouth [place] 00 every 6 Medical (six) Branch hours as needed for Pain (scale 7-10). bisacodyl 5 2019-0 Yes [id number] 5mg Take 1 [facility] mg EC 9-18 tablet by ity of tablet 00:00: mouth once [place] 00 daily as Medical needed for Branch Constipati on. traMADol 50 2019-0 Yes [id number] 50mg Take 1 [facility] mg tablet 9-18 tablet by ity o f 00:00: mouth [place] 00 every 6 Medical (six) Branch hours as needed for Pain (scale 7-10). bisacodyl 5 2018-0 Yes [id number] 5mg Take 1 [facility] mg EC 9-18 tablet by ity of tablet 00:00: mouth once [place] 00 daily as Medical needed for Branch Constipati on. traMADol 50 2019-0 Yes [id number] 50mg Take 1 [facility] mg tablet 9-18 tablet by ity o f 00:00: mouth [place] 00 every 6 Medical (six) Branch hours as needed for Pain (scale 7-10). bisacodyl 5 2019-0 Yes [id number] 5mg Take 1 [facility] mg EC 9-18 tablet by ity of tablet 00:00: mouth once [place] 00 daily as Medical needed for Branch Constipati on. traMADol 50 2019-0 Yes [id number] 50mg Take 1 [facility] mg tablet 9-18 tablet by ity o f 00:00: mouth [place] 00 every 6 Medical (six) Branch hours as needed for Pain (scale 7-10). bisacodyl 5 2019-0 Yes [id number] 5mg Take 1 [facility] mg EC 9-18 tablet by ity of tablet 00:00: mouth once [place] 00 daily as Medical needed for Branch Constipati on. traMADol 50 2019-0 Yes [id number] 50mg Take 1 [facility] mg tablet 9-18 tablet by ity o f 00:00: mouth [place] 00 every 6 Medical (six) Branch hours as needed for Pain (scale 7-10). bisacodyl 5 2019-0 Yes [id number] 5mg Take 1 [facility] mg EC 9-18 tablet by ity of tablet 00:00: mouth once [place] 00 daily as Medical needed for Branch Constipati on. traMADol 50 2019-0 Yes [id number] 50mg Take 1 [facility] mg tablet 9-18 tablet by ity o f 00:00: mouth [place] 00 every 6 Medical (six) Branch hours as needed for Pain (scale 7-10). bisacodyl 5 2019-0 Yes [id number] 5mg Take 1 [facility] mg EC 9-18 tablet by ity of tablet 00:00: mouth once [place] 00 daily as Medical needed for Branch Constipati on. traMADol 50 2019-0 Yes [id number] 50mg Take 1 [facility] mg tablet 9-18 tablet by ity o f 00:00: mouth [place] 00 every 6 Medical (six) Branch hours as needed for Pain (scale 7-10). bisacodyl 5 2018-0 Yes [id number] 5mg Take 1 [facility] mg EC 9-18 tablet by ity of tablet 00:00: mouth once [place] 00 daily as Medical needed for Branch Constipati on. traMADol 50 2019-0 Yes [id number] 50mg Take 1 [facility] mg tablet 9-18 tablet by ity o f 00:00: mouth [place] 00 every 6 Medical (six) Branch hours as needed for Pain (scale 7-10). bisacodyl 5 2019-0 Yes [id number] 5mg Take 1 [facility] mg EC 9-18 tablet by ity of tablet 00:00: mouth once [place] 00 daily as Medical needed for Branch Constipati on. traMADol 50 2019-0 Yes [id number] 50mg Take 1 [facility] mg tablet 9-18 tablet by ity o f 00:00: mouth [place] 00 every 6 Medical (six) Branch hours as needed for Pain (scale 7-10). bisacodyl 5 2019-0 Yes [id number] 5mg Take 1 [facility] mg EC 9-18 tablet by ity of tablet 00:00: mouth once [place] 00 daily as Medical needed for Branch Constipati on. traMADol 50 2019-0 Yes [id number] 50mg Take 1 [facility] mg tablet 9-18 tablet by ity o f 00:00: mouth [place] 00 every 6 Medical (six) Branch hours as needed for Pain (scale 7-10). bisacodyl 5 2018-0 Yes [id number] 5mg Take 1 [facility] mg EC 9-18 tablet by ity of tablet 00:00: mouth once [place] 00 daily as Medical needed for Branch Constipati on. traMADol 50 2019-0 Yes [id number] 50mg Take 1 [facility] mg tablet 9-18 tablet by ity o f 00:00: mouth [place] 00 every 6 Medical (six) Branch hours as needed for Pain (scale 7-10). bisacodyl 5 0 Yes [id number] 5mg Take 1 [facility] mg EC 9-18 tablet by ity of tablet 00:00: mouth once [place] 00 daily as Medical needed for Branch Constipati on. traMADol 50 2018-0 Yes [id number] 50mg Take 1 [facility] mg tablet 9-18 tablet by ity o f 00:00: mouth [place] 00 every 6 Medical (six) Branch hours as needed for Pain (scale 7-10). bisacodyl 5 Yes [id number] 5mg Take 1 [facility] mg EC 9-18 tablet by ity of tablet 00:00: mouth once [place] 00 daily as Medical needed for Branch Constipati on. traMADol 50 2018-0 Yes [id number] 50mg Take 1 [facility] mg tablet 9-18 tablet by ity o f 00:00: mouth [place] 00 every 6 Medical (six) Branch hours as needed for Pain (scale 7-10). bisacodyl 5 2018-0 Yes [id number] 5mg Take 1 [facility] mg EC 9-18 tablet by ity of tablet 00:00: mouth once [place] 00 daily as Medical needed for Branch Constipati on. bisacodyl 5 0 Yes [id number] 5mg Take 1 [facility] mg EC 9-18 tablet by ity of tablet 00:00: mouth once [place] 00 daily as Medical needed for Branch Constipati on. bisacodyl 5 2018-0 Yes [id number] 5mg Take 1 [facility] mg EC 9-18 tablet by ity of tablet 00:00: mouth once [place] 00 daily as Medical needed for Branch Constipati on. bisacodyl 5 2018-0 Yes [id number] 5mg Take 1 [facility] mg EC 9-18 tablet by ity of tablet 00:00: mouth once [place] 00 daily as Medical needed for Branch Constipati on. bisacodyl 5 0 Yes [id number] 5mg Take 1 [facility] mg EC 9-18 tablet by ity of tablet 00:00: mouth once [place] 00 daily as Medical needed for Branch Constipati on. bisacodyl 5 2018- Yes [id number] 5mg Take 1 [facility] mg EC 9-18 tablet by ity of tablet 00:00: mouth once [place] 00 daily as Medical needed for Branch Constipati on. bisacodyl 5 Yes [id number] 5mg Take 1 [facility] mg EC 9-18 tablet by ity of tablet 00:00: mouth once [place] 00 daily as Medical needed for Branch Constipati on. bisacodyl 5 Yes [id number] 5mg Take 1 [facility] mg EC 9-18 tablet by ity of tablet 00:00: mouth once [place] 00 daily as Medical needed for Branch Constipati on. bisacodyl 5 Yes [id number] 5mg Take 1 [facility] mg EC 9-18 tablet by ity of tablet 00:00: mouth once [place] 00 daily as Medical needed for Branch Constipati on. bisacodyl 5 Yes [id number] 5mg Take 1 [facility] mg EC 9-18 tablet by ity of tablet 00:00: mouth once [place] 00 daily as Medical needed for Branch Constipati on. traMADol 50 2018-2021- No [id number] 50mg Take 1 [facility] mg tablet 9-18 -27 tablet by ity of 00:00: 00:00 mouth [place] 00 :00 every 6 Medical (six) Branch hours as needed for Pain (scale 7-10). cyanocobala Yes [id number] 1000ug inject 1 Univers min 7-23 mL under ity of (VITAMIN 00:00: the skin [place] B-12) 1,000 00 every 14 Medi kj mcg/mL (fourteen) Branch injection days. cyanocobala Yes [id number] 1000ug inject 1 [facility] min 7-23 mL under ity of (VITAMIN 00:00: the skin [place] B-12) 1,000 00 every 14 Medi kj mcg/mL (fourteen) Branch injection days. cyanocobala Yes [id number] 1000ug inject 1 [facility] min 7-23 mL under ity of (VITAMIN 00:00: the skin [place] B-12) 1,000 00 every 14 Medi kj mcg/mL (fourteen) Branch injection days. cyanocobala Yes [id number] 1000ug inject 1 [facility] min 7-23 mL under ity of (VITAMIN 00:00: the skin [place] B-12) 1,000 00 every 14 Medi kj mcg/mL (fourteen) Branch injection days. cyanocobala 2018-0 Yes [id number] 1000ug inject 1 Univers min 7-23 mL under ity of (VITAMIN 00:00: the skin [place] B-12) 1,000 00 every 14 Medi kj mcg/mL (fourteen) Branch injection days. cyanocobala 2018-0 Yes [id number] 1000ug inject 1 [facility] min 7-23 mL under ity of (VITAMIN 00:00: the skin [place] B-12) 1,000 00 every 14 Medi kj mcg/mL (fourteen) Branch injection days. cyanocobala 2018-0 Yes [id number] 1000ug inject 1 [facility] min 7-23 mL under ity of (VITAMIN 00:00: the skin [place] B-12) 1,000 00 every 14 Medi kj mcg/mL (fourteen) Branch injection days. cyanocobala 2018-0 Yes [id number] 1000ug inject 1 [facility] min 7-23 mL under ity of (VITAMIN 00:00: the skin [place] B-12) 1,000 00 every 14 Medi kj mcg/mL (fourteen) Branch injection days. cyanocobala 2018-0 Yes [id number] 1000ug inject 1 [facility] min 7-23 mL under ity of (VITAMIN 00:00: the skin [place] B-12) 1,000 00 every 14 Medi kj mcg/mL (fourteen) Branch injection days. cyanocobala 2018-0 Yes [id number] 1000ug inject 1 [facility] min 7-23 mL under ity of (VITAMIN 00:00: the skin [place] B-12) 1,000 00 every 14 Medi kj mcg/mL (fourteen) Branch injection days. cyanocobala 2018-0 Yes [id number] 1000ug inject 1 [facility] min 7-23 mL under ity of (VITAMIN 00:00: the skin [place] B-12) 1,000 00 every 14 Medi kj mcg/mL (fourteen) Branch injection days. cyanocobala 2018-0 Yes [id number] 1000ug inject 1 [facility] min 7-23 mL under ity of (VITAMIN 00:00: the skin [place] B-12) 1,000 00 every 14 Medi kj mcg/mL (fourteen) Branch injection days. cyanocobala Yes [id number] 1000ug inject 1 [facility] min 7-23 mL under ity of (VITAMIN 00:00: the skin [place] B-12) 1,000 00 every 14 Medi kj mcg/mL (fourteen) Branch injection days. cyanocobala Yes [id number] 1000ug inject 1 [facility] min 7-23 mL under ity of (VITAMIN 00:00: the skin [place] B-12) 1,000 00 every 14 Medi kj mcg/mL (fourteen) Branch injection days. cyanocobala 2020- No [id number] 1000ug inject 1 [facility] min 7-23 01-27 mL under ity of (VITAMIN 00:00: [place] B-12) 1,000 00 :00 every 14 Medi kj mcg/mL (fourteen) Branch injection days. cyanocobala 2019- No [id number] 1000ug inject 1 [facility] min 7-23 01-27 mL under ity of (VITAMIN 00:00: 00:[place] B-12) 1,000 00 :00 every 14 Medi kj mcg/mL (fourteen) Branch injection days. IBUPROFEN Yes 1{tbl} Take 1 Univ ers ORAL 7-22 tablet by ity of 16:32: mouth as [place] 24 needed. Medical Branch IBUPROFEN Yes 1{tbl} Take 1 Univ ers ORAL 7-22 tablet by ity of 16:32: mouth as [place] 24 needed. Medical Branch IBUPROFEN Yes 1{tbl} Take 1 Univ ers ORAL 7-22 tablet by ity of 16:32: mouth as [place] 24 needed. Medical Branch IBUPROFEN Yes 1{tbl} Take 1 Univ ers ORAL 7-22 tablet by ity of 16:32: mouth as [place] 24 needed. Medical Branch IBUPROFEN Yes 1{tbl} Take 1 Univ ers ORAL 7-22 tablet by ity of 16:32: mouth as [place] 24 needed. Medical Branch IBUPROFEN Yes 1{tbl} Take 1 Univ ers ORAL 7-22 tablet by ity of 16:32: mouth as [place] 24 needed. Medical Branch cyanocobala Yes 1000ug 1,000 mcg [facility] min 1,000 7-22 by ity of mcg/mL 16:31: [facility] [place] injection 44 lar route Medic al once every Branch month. cyanocobala Yes 1000ug 1,000 mcg [facility] min 1,000 7-22 by ity of mcg/mL 16:31: [facility] [place] injection 44 lar route Medic al once every Branch month. cyanocobala Yes 1000ug 1,000 mcg [facility] min 1,000 7-22 by ity of mcg/mL 16:31: [facility] [place] injection 44 lar route Medic al once every Branch month. cyanocobala Yes 1000ug 1,000 mcg [facility] min 1,000 7-22 by ity of mcg/mL 16:31: [facility] [place] injection 44 lar route Medic al once every Branch month. cyanocobala Yes 1000ug 1,000 mcg [facility] min 1,000 7-22 by ity of mcg/mL 16:31: [facility] [place] injection 44 lar route Medic al once every Branch month. cyanocobala Yes 1000ug 1,000 mcg [facility] min 1,000 7-22 by ity of mcg/mL 16:31: [facility] [place] injection 44 lar route Medic al once every Branch month. albuterol Yes 1{puff} Inhale 1 U nivers sulfate 7-22 Puff as ity of (PROAIR HFA 16:30: needed. [facility] as INHALE) 21 Medical Branch albuterol Yes 1{puff} Inhale 1 U nivers sulfate 7-22 Puff as ity of (PROAIR HFA 16:30: needed. [place] as INHALE) 21 Medical Branch albuterol Yes 1{puff} Inhale 1 U nivers sulfate 7-22 Puff as ity of (PROAIR HFA 16:30: needed. [place] as INHALE) 21 Medical Branch albuterol Yes 1{puff} Inhale 1 U nivers sulfate 7-22 Puff as ity of (PROAIR HFA 16:30: needed. [place] as INHALE) 21 Medical Branch albuterol Yes 1{puff} Inhale 1 U nivers sulfate 7-22 Puff as ity of (PROAIR HFA 16:30: needed. [place] as INHALE) 21 Medical Branch albuterol 2019-0 Yes 1{puff} Inhale 1 U nivers sulfate 7-22 Puff as ity of (PROAIR HFA 16:30: needed. [facility] as INHALE) 21 Medical Branch levothyroxi 2018-0 Yes 25ug Take 25 Uni vers ne 50 mcg 7-22 mcg by ity of tablet 16:28: mouth [place] 49 every Medical morning. Branch For total of 225 levothyroxi 2018- Yes 25ug Take 25 Uni vers ne 50 mcg 7-22 mcg by ity of tablet 16:28: mouth [place] 49 every Medical morning. Branch For total of 225 levothyroxi 2018- Yes 25ug Take 25 Uni vers ne 50 mcg 7-22 mcg by ity of tablet 16:28: mouth [place] 49 every Medical morning. Branch For total of 225 levothyroxi 2018- Yes 25ug Take 25 Uni vers ne 50 mcg 7-22 mcg by ity of tablet 16:28: mouth [place] 49 every Medical morning. Branch For total of 225 levothyroxi Yes 25ug Take 25 Uni vers ne 50 mcg 7-22 mcg by ity of tablet 16:28: mouth [place] 49 every Medical morning. Branch For total of 225 levothyroxi Yes 25ug Take 25 Uni vers ne 50 mcg 7-22 mcg by ity of tablet 16:28: mouth [place] 49 every Medical morning. Branch For total of 225 levothyroxi 2018- Yes 200ug Take 200 U nivers ne 200 mcg 7-22 mcg by ity of tablet 16:28: mouth [place] 25 every Medical morning. Branch levothyroxi 2018- Yes 200ug Take 200 U nivers ne 200 mcg 7-22 mcg by ity of tablet 16:28: mouth [place] 25 every Medical morning. Branch levothyroxi 0 Yes 200ug Take 200 U nivers ne 200 mcg 7-22 mcg by ity of tablet 16:28: mouth [place] 25 every Medical morning. Branch levothyroxi 2018-0 Yes 200ug Take 200 U nivers ne 200 mcg 7-22 mcg by ity of tablet 16:28: mouth [place] 25 every Medical morning. Branch levothyroxi 2018-0 Yes 200ug Take 200 U nivers ne 200 mcg 7-22 mcg by ity of tablet 16:28: mouth [place] 25 every Medical morning. Branch levothyroxi 2018-0 Yes 200ug Take 200 U nivers ne 200 mcg 7-22 mcg by ity of tablet 16:28: mouth [place] 25 every Medical morning. Branch Nitrofurant 2018- Yes [id number] 100mg Take 1 [facility] oin&Nit. 5-14 capsule by itGLOG o f [place] 00:[place]: [place] (MACROBID) 00 (two) Medical 100 mg times Branch capsule daily. For 3 days prn UTi symptoms Nitrofurant Yes [id number] 100mg Take 1 [facility] oin&Nit. 5-14 capsule by itGLOG o f [place] 00:[place]: [place] (MACROBID) 00 (two) Medical 100 mg times Branch capsule daily. For 3 days prn UTi symptoms Nitrofurant 2018- Yes [id number] 100mg Take 1 [facility] oin&Nit. 5-14 capsule by itGLOG o f [place] 00:[place]: mouth [place] (MACROBID) 00 (two) Medical 100 mg times Branch capsule daily. For 3 days prn UTi symptoms Nitrofurant 2018- Yes 100mg Take 1 [facility] oin&Nit. 5-14 capsule by itGLOG o f [place] 00:[place]: mouth [place] (MACROBID) 00 (two) Medical 100 mg times Branch capsule daily. For 3 days prn UTi symptoms Nitrofurant 2018- Yes [id number] 100mg Take 1 [facility] oin&Nit. 5-14 capsule by itAmtec f [place] 00:[place]: mouth [place] (MACROBID) 00 (two) Medical 100 mg times Branch capsule daily. For 3 days prn UTi symptoms Nitrofurant Yes 100mg Take 1 [facility] oin&Nit. 5-14 capsule by itGLOG o f [place] 00:[place]: mouth [place] (MACROBID) 00 (two) Medical 100 mg times Branch capsule daily. For 3 days prn UTi symptoms Nitrofurant 2018- Yes [id number] 100mg Take 1 [facility] oin&Nit. 5-14 capsule by itGLOG o f [place] 00:[place]: mouth [place] (MACROBID) 00 (two) Medical 100 mg times Branch capsule daily. For 3 days prn UTi symptoms Nitrofurant 2018- Yes [id number] 100mg Take 1 [facility] oin&Nit. 5-14 capsule by ity o f [place] 00:[place]: mouth [place] (MACROBID) 00 (two) Medical 100 mg times Branch capsule daily. For 3 days prn UTi symptoms Nitrofurant 2019-0 Yes [id number] 100mg Take 1 [facility] oin&Nit. 5-14 capsule by ity o f [place] 00:[place]: mouth [place] (MACROBID) 00 (two) Medical 100 mg times Branch capsule daily. For 3 days prn UTi symptoms Nitrofurant 2018- Yes [id number] 100mg Take 1 [facility] oin&Nit. 5-14 capsule by ity o f [place] 00:[place]: mouth [place] (MACROBID) 00 (two) Medical 100 mg times Branch capsule daily. For 3 days prn UTi symptoms Nitrofurant 2018- Yes [id number] 100mg Take 1 [facility] oin&Nit. 5-14 capsule by ity o f [place] 00:[place]: mouth [place] (MACROBID) 00 (two) Medical 100 mg times Branch capsule daily. For 3 days prn UTi symptoms Nitrofurant 2018- Yes [id number] 100mg Take 1 [facility] oin&Nit. 5-14 capsule by ity o f [place] 00:[place]: mouth [place] (MACROBID) 00 (two) Medical 100 mg times Branch capsule daily. For 3 days prn UTi symptoms Nitrofurant Yes [id number] 100mg Take 1 [facility] oin&Nit. 5-14 capsule by ity o f [place] 00:00: mouth [place] (MACROBID) 00 (two) Medical 100 mg times Branch capsule daily. For 3 days prn UTi symptoms Nitrofurant 2018- Yes [id number] 100mg Take 1 [facility] oin&Nit. 5-14 capsule by ity o f [place] 00:00: mouth [place] (MACROBID) 00 (two) Medical 100 mg times Branch capsule daily. For 3 days prn UTi symptoms Nitrofurant 2020- No [id number] 100mg Take 1 [facility] oin&Nit. 5-14 01-27 capsule by ity of Macrocryst 00:00: 00:00 mouth 2 [facility] as (MACROBID) 00 :00 (two) Medical 100 mg times Branch capsule daily. For 3 days prn UTi symptoms Nitrofurant 2020- No [id number] 100mg Take 1 [facility] oin&Nit. 5-14 03-06 capsule by ity of Macrocryst 00:00: 00:00 mouth 2 [facility] as (MACROBID) 00 :00 (two) Medical 100 mg times Branch capsule daily. For 3 days prn UTi symptoms Fluticasone Yes 1{puff} Inhale 1 Univers -Salmeterol 4-23 Puff every it y of (ADVAIR 15:59: 12 [place] DISKUS) 28 (twelve) Medical 100-50 hours. Branch mcg/dose inhalation disk Fluticasone Yes 1{puff} Inhale 1 Univers -Salmeterol 4-23 Puff every it y of (ADVAIR 15:59: 12 [place] DISKUS) 28 (twelve) Medical 100-50 hours. Branch mcg/dose inhalation disk Fluticasone Yes 1{puff} Inhale 1 [facility] -Salmeterol 4-23 Puff every it y of (ADVAIR 15:59: 12 [place] DISKUS) 28 (twelve) Medical 100-50 hours. Branch mcg/dose inhalation disk Fluticasone Yes 1{puff} Inhale 1 [facility] -Salmeterol 4-23 Puff every it y of (ADVAIR 15:59: 12 [place] DISKUS) 28 (twelve) Medical 100-50 hours. Branch mcg/dose inhalation disk Fluticasone Yes 1{puff} Inhale 1 [facility] -Salmeterol 4-23 Puff every it y of (ADVAIR 15:59: 12 [place] DISKUS) 28 (twelve) Medical 100-50 hours. Branch mcg/dose inhalation disk Fluticasone Yes 1{puff} Inhale 1 [facility] -Salmeterol 4-23 Puff every it y of (ADVAIR 15:59: 12 [place] DISKUS) 28 (twelve) Medical 100-50 hours. Branch mcg/dose inhalation disk multivit-mi 2017-02 Yes Take by Uni vers ns 2-21 mouth ity of no.63/iron/ 18:30: [place]. [place] folic 11 [facility] (M-VIT Branch ORAL) multivit-mi 2017-02 Yes Take by Uni vers ns 2-21 mouth ity of no.63/iron/ 18:30: daily. [place] [facility] folic 11 Medical (M-VIT Branch ORAL) multivit-mi 2017-02 Yes Take by Uni vers ns 2-21 mouth ity of no.63/iron/ 18:30: daily. [place] [facility] folic 11 Medical (M-VIT Branch ORAL) multivit-mi 2017-02 Yes Take by Uni vers ns 2-21 mouth ity of no.63/iron/ 18:30: daily. [place] [facility] folic 11 Medical (M-VIT Branch ORAL) multivit-mi 2017-02 Yes Take by Uni vers ns 2-21 mouth ity of no.63/iron/ 18:30: daily. [place] [facility] folic 11 Medical (M-VIT Branch ORAL) multivit-mi 2017-02 Yes Take by Uni vers ns 2-21 mouth ity of no.63/iron/ 18:30: daily. [place] [facility] folic 11 Medical (M-VIT Branch ORAL) atorvastati 2017-02 Yes 10mg Take 10 mg Univers n 10 mg 2-16 by mouth ity of tablet 20:55: at [place] [address] bedtime. Medical Branch ibandronate 2017-02 Yes 150mg Take 150 U nivers 150 mg 2-16 mg by ity of tablet 20:55: mouth once [place] [address] every Medical month. Branch Dexlansopra 2017-02 Yes Take by Uni vers zole 2-16 mouth. ity of (DEXILANT) 20:55: [place] 60 mg 51 Medical capsule Branch atorvastati 2017-02 Yes 10mg Take 10 mg Univers n 10 mg 2-16 by mouth ity of tablet 20:55: at [place] [address] bedtime. Medical Branch ibandronate 2017-02 Yes 150mg Take 150 U nivers 150 mg 2-16 mg by ity of tablet 20:55: mouth once [place] [address] every Medical month. Branch Dexlansopra 2017-02 Yes Take by Uni vers zole 2-16 mouth. ity of (DEXILANT) 20:55: [place] 60 mg 51 Medical capsule Branch atorvastati 2017-02 Yes 10mg Take 10 mg Univers n 10 mg 2-16 by mouth ity of tablet 20:55: at [place] [address] bedtime. Medical Branch ibandronate 2018 Yes 150mg Take 150 U nivers 150 mg 2-16 mg by ity of tablet 20:55: mouth once [place] [address] every Medical month. Branch Dexlansopra 2017-02 Yes Take by Uni vers zole 2-16 mouth. ity of (DEXILANT) 20:55: [place] 60 mg 51 Medical capsule Branch atorvastati 2017-02 Yes 10mg Take 10 mg Univers n 10 mg 2-16 by mouth ity of tablet 20:55: at [place] [address] bedtime. Medical Branch ibandronate 2018- Yes 150mg Take 150 U nivers 150 mg 2-16 mg by ity of tablet 20:55: mouth once [place] [address] every Medical month. Branch Dexlansopra 2017-02 Yes Take by Uni vers zole 2-16 mouth. ity of (DEXILANT) 20:55: [place] 60 mg 51 Medical capsule Branch atorvastati 2017-02 Yes 10mg Take 10 mg Univers n 10 mg 2-16 by mouth ity of tablet 20:55: at [place] [address] bedtime. Medical Branch ibandronate 2017-02 Yes 150mg Take 150 U nivers 150 mg 2-16 mg by ity of tablet 20:55: mouth once [place] [address] every Medical month. Branch Dexlansopra 2017-02 Yes Take by Uni vers zole 2-16 mouth. ity of (DEXILANT) 20:55: [place] 60 mg 51 Medical capsule Branch atorvastati 2017-02 Yes 10mg Take 10 mg Univers n 10 mg 2-16 by mouth ity of tablet 20:55: at [place] [address] bedtime. Medical Branch ibandronate 2017-02 Yes 150mg Take 150 U nivers 150 mg 2-16 mg by ity of tablet 20:55: mouth once [place] [address] every Medical month. Branch Dexlansopra 2017-02 Yes Take by Uni vers zole 2-16 mouth. ity of (DEXILANT) 20:55: [place] 60 mg 51 Medical capsule Branch Vitamin B Vitamin B Yes [place] [facility] Comm on 12 12 [place] directed [facility] Boniva Boniva Yes [place] 1 tablet Common [place] [facility] Dexilant Dexilant Yes [place] 1 capsule C ommon [place] [facility] Caltrate Caltrate Yes [place] 1 tablet Co mmon 600+D3 600+D3 [place] with a Spiri t meal [facility] Levothyroxi Levothyroxi Yes [place] 1 tablet Common ne Sodium ne Sodium [place] in the [facility] morning on - [facility] an empty [facility] Rosuvastati Rosuvastati Yes [place] 1 tablet Common n Calcium n Calcium [place] S pirit - [facility] Nitrofurant Nitrofurant Yes [place] 1 capsule Common oin oin [place] with food Spirit Macrocrysta Macrocrysta or milk - [facility] l [facility] Advair Advair Yes [place] 1 puff Common Diskus Diskus [place] [facility] - [facility] Dexilant 60 Dexilant 60 No 1{capsu QD Dexilant MG MG le} 60 MG Boniva 150 Boniva 150 No 1{table Boniva 150 MG MG t} MG Caltrate Caltrate No 1{table QD Caltrate 600+D3 600+D3 t_with_ 600+D3 600-800 600-800 a_meal} 600-800 MG-UNIT MG-UNIT MG-UNIT Nitrofurant Nitrofurant No 1{capsu QD Nitrofuran oin oin le_with toin Macrocrysta Macrocrysta _food_o [facility] l 100 MG l 100 MG r_milk} al 100 MG Vitamin B Vitamin B No Vitamin B 12 100 MCG 12 100 MCG 12 100 MCG Advair Advair No 1{puff} BID Advair Diskus Diskus Diskus 100-50 100-50 100-50 MCG/DOSE MCG/DOSE MCG/DOSE Nitrofurant Nitrofurant No QD Nitrofuran oin Monohyd oin Monohyd toin Macro 100 Macro 100 Monohyd MG MG Macro 100 MG Rosuvastati Rosuvastati No 1{table QD Rosuvastat n Calcium 5 n Calcium 5 t} in Calcium MG MG 5 MG Levothyroxi Levothyroxi No QD Levothyrox ne Sodium ne Sodium ine Sodium 200 MCG 200 MCG 200 MCG Dexilant 60 Dexilant 60 No 1{capsu QD Dexilant MG MG le} 60 MG Vitamin B Vitamin B No Vitamin B 12 100 MCG 12 100 MCG 12 100 MCG Boniva 150 Boniva 150 No 1{table Boniva 150 MG MG t} MG Nitrofurant Nitrofurant No 1{capsu QD Nitrofuran oin oin le_with toin Macrocrysta Macrocrysta _food_o Macrocryst l 100 MG l 100 MG r_milk} al 100 MG Rosuvastati Rosuvastati No 1{table QD Rosuvastat n Calcium 5 n Calcium 5 t} in Calcium MG MG 5 MG Levothyroxi Levothyroxi No QD Levothyrox ne Sodium ne Sodium ine Sodium 200 MCG 200 MCG 200 MCG Advair Advair No 1{puff} BID Advair Diskus Diskus Diskus 100-50 100-50 100-50 MCG/DOSE MCG/DOSE MCG/DOSE Nitrofurant Nitrofurant No QD Nitrofuran oin Monohyd oin Monohyd toin Macro 100 Macro 100 Monohyd MG MG Macro 100 MG Caltrate Caltrate No 1{table QD Caltrate 600+D3 600+D3 t_with_ 600+D3 600-800 600-800 a_meal} 600-800 MG-UNIT MG-UNIT MG-UNIT Immunizations Ordered Filled Immunization Date Status Comments Sourc e Immunization Name Name SARS-COV-2 COVID-19 2020-04-23 Completed Unive rsity of PFIZER VACCINE 00:00:00 [facility] SARS-COV-2 COVID-19 2020-04-23 Completed Unive rsity of PFIZER VACCINE 00:00:00 [facility] SARS-COV-2 COVID-19 2020-04-23 Completed Unive rsity of PFIZER VACCINE 00:00:00 [facility] SARS-COV-2 COVID-19 2020-04-23 Completed Unive rsity of PFIZER VACCINE 00:00:00 [facility] SARS-COV-2 COVID-19 2020-04-23 Completed Unive rsity of PFIZER VACCINE 00:00:00 [facility] SARS-COV-2 COVID-19 2020-04-23 Completed Unive rsity of PFIZER VACCINE 00:00:00 [facility] SARS-COV-2 COVID-19 2020-04-23 Completed Unive rsity of PFIZER VACCINE 00:00:00 [facility] SARS-COV-2 COVID-19 2020-04-23 Completed Unive rsity of PFIZER VACCINE 00:00:00 [facility] SARS-COV-2 COVID-19 2020-04-23 Completed Unive rsity of PFIZER VACCINE 00:00:00 [facility] SARS-COV-2 COVID-19 2020-04-23 Completed Unive rsity of PFIZER VACCINE 00:00:00 [facility] SARS-COV-2 COVID-19 2020-04-02 Completed Unive rsity of PFIZER VACCINE 00:00:00 [facility] SARS-COV-2 COVID-19 2020-04-02 Completed Unive rsity of PFIZER VACCINE 00:00:00 [facility] SARS-COV-2 COVID-19 2020-04-02 Completed Unive rsity of PFIZER VACCINE 00:00:00 [facility] SARS-COV-2 COVID-19 2020-04-02 Completed Unive rsity of PFIZER VACCINE 00:00:00 [facility] SARS-COV-2 COVID-19 2020-04-02 Completed Unive rsity of PFIZER VACCINE 00:00:00 [facility] SARS-COV-2 COVID-19 2020-04-02 Completed Unive rsity of PFIZER VACCINE 00:00:00 [facility] SARS-COV-2 COVID-19 2020-04-02 Completed Unive rsity of PFIZER VACCINE 00:00:00 [facility] SARS-COV-2 COVID-19 2020-04-02 Completed Unive rsity of PFIZER VACCINE 00:00:00 [facility] SARS-COV-2 COVID-19 2020-04-02 Completed Unive rsity of PFIZER VACCINE 00:00:00 [facility] SARS-COV-2 COVID-19 2020-04-02 Completed Unive rsity of PFIZER VACCINE 00:00:00 [facility] Influenza High Dose 2019-03-06 Completed Unive rsity of 00:00:00 [facility] Influenza High Dose 2019-03-06 Completed Unive rsity of 00:00:00 [facility] Influenza High Dose 2019-03-06 Completed Unive rsity of 00:00:00 [facility] Influenza High Dose 2019-03-06 Completed Unive rsity of 00:00:00 [facility] Influenza High Dose 2019-03-06 Completed Unive rsity of 00:00:00 [facility] Influenza High Dose 2019-03-06 Completed Unive rsity of 00:00:00 [facility] Influenza High Dose 2019-03-06 Completed Unive rsity of 00:00:00 [facility] Influenza High Dose 2019-03-06 Completed Unive rsity of 00:00:00 [facility] Influenza High Dose 2019-03-06 Completed Unive rsity of 00:00:00 [facility] Influenza High Dose 2019-03-06 Completed Unive rsity of 00:00:00 [facility] Influenza High Dose 2019-03-06 Completed Unive rsity of 00:00:00 [facility] Influenza High Dose 2019-03-06 Completed Unive rsity of 00:00:00 [facility] Influenza High Dose 2019-03-06 Completed Unive rsity of 00:00:00 [facility] Influenza High Dose 2019-03-06 Completed Unive rsity of 00:00:00 [facility] Influenza High Dose 2019-03-06 Completed Unive rsity of 00:00:00 [facility] Influenza High Dose 2019-03-06 Completed Unive rsity of 00:00:00 [facility] Influenza High Dose 2019-03-06 Completed Unive rsity of 00:00:00 [facility] Influenza High Dose 2019-03-06 Completed Unive rsity of 00:00:00 [facility] Influenza High Dose 2019-03-06 Completed Unive rsity of 00:00:00 [facility] Influenza High Dose 2019-03-06 Completed Unive rsity of 00:00:00 [facility] Influenza High Dose 2019-03-06 Completed Unive rsity of 00:00:00 [facility] TD, NOS 2015-07-31 Completed University of 00:00:00 [facility] Td 2015-07-31 Completed University of 00:00:00 [facility] TD, NOS 2015-07-31 Completed University of 00:00:00 [facility] Td 2015-07-31 Completed University of 00:00:00 [facility] Td 2015-07-31 Completed University of 00:00:00 [facility] Td 2015-07-31 Completed University of 00:00:00 [facility] Td 2015-07-31 Completed University of 00:00:00 [place] [facility] Td 2015-07-31 Completed University of 00:00:00 [facility] Td 2015-07-31 Completed University of 00:00:00 [place] [facility] Td 2015-07-31 Completed University of 00:00:00 [facility] Td 2015-07-31 Completed University of 00:00:00 [facility] Td 2015-07-31 Completed University of 00:00:00 [place] [facility] Td 2015-07-31 Completed University of 00:00:00 [place] [facility] Td 2015-07-31 Completed University of 00:00:00 [place] [facility] Td 2015-07-31 Completed University of 00:00:00 [place] [facility] Td 2015-07-31 Completed University of 00:00:00 [place] [facility] Td 2015-07-31 Completed University of 00:00:00 [place] [facility] Td 2015-07-31 Completed University of 00:00:00 [place] [facility] Td 2015-07-31 Completed University of 00:00:00 [place] [facility] Td 2015-07-31 Completed University of 00:00:00 [place] [facility] Td 2015-07-31 Completed University of 00:00:00 [place] [facility] Td 2015-07-31 Completed University of 00:00:00 [place] [facility] Td 2015-07-31 Completed University of 00:00:00 [place] [facility] Td 2015-07-31 Completed University of 00:00:00 [facility] Td 2015-07-31 Completed University of 00:00:00 [place] [facility] Td 2015-07-31 Completed University of 00:00:00 [place] [facility] Td 2015-07-31 Completed University of 00:00:00 [place] [facility] Td 2015-07-31 Completed University of 00:00:00 [facility] Td 2015-07-31 Completed University of 00:00:00 [place] [facility] Td 2015-07-31 Completed University of 00:00:00 [place] [facility] Td 2015-07-31 Completed University of 00:00:00 [facility] Td 2015-07-31 Completed University of 00:00:00 [facility] Td 2015-07-31 Completed University of 00:00:00 [place] [facility] Td 2015-07-31 Completed University of 00:00:00 [place] [facility] Td 2015-07-31 Completed University of 00:00:00 [place] [facility] TD, NOS 2015-07-31 Completed University of 00:00:00 [facility] Vital Signs Vital Name Observation Time Observation Value Comments Source Systolic blood 2022-04-23 17:39:00 122 mm[Hg] Univer sity of pressure [facility] Diastolic blood 2022-04-23 17:39:00 49 mm[Hg] Unive rsity of pressure [facility] Heart rate 2022-04-23 17:39:00 67 /min [facility] Respiratory rate 2022-04-23 17:39:00 19 /min [facility] Oxygen saturation in 2022-04-23 17:39:00 96 /min [facility] Arterial blood by [facility] Pulse oximetry Branch Body temperature 2022-04-23 15:47:00 36.83 Grace [facility] Body height 2022-04-23 15:47:00 170.2 cm [facility] Body weight 2022-04-23 15:47:00 92.08 kg [facility] BMI 2022-04-23 15:47:00 31.79 kg/m2 [facility] Systolic blood 2022-03-09 17:39:00 123 mm[Hg] [facility] Diastolic blood 2022-03-09 17:39:00 77 mm[Hg] [facility] Heart rate 2022-03-09 17:39:00 85 /min [facility] Body temperature 2022-03-09 17:39:00 37.28 Grace [facility] Respiratory rate 2022-03-09 17:39:00 18 /min [facility] Body weight 2022-03-09 17:39:00 95.255 kg [facility] BMI 2022-03-09 17:39:00 33.89 kg/m2 [facility] Oxygen saturation in 2022-03-09 17:39:00 98 /min [facility]terial blood by [facility] Pulse oximetry Branch Systolic blood 2022-02-21 03:01:00 148 mm[Hg] [facility] Diastolic blood 2022-02-21 03:01:00 73 mm[Hg] [facility] Heart rate 2022-02-21 03:01:00 78 /min [facility] Body temperature 2022-02-21 03:01:00 37.11 Grace [facility] Respiratory rate 2022-02-21 03:01:00 16 /min [facility] Body weight 2022-02-21 03:01:00 95.255 kg [facility] BMI 2022-02-21 03:01:00 33.89 kg/m2 [facility] Oxygen saturation in 2022-02-21 03:01:00 98 /min [facility] blood by [facility] Pulse oximetry Branch Systolic blood 2021-04-07 21:34:00 128 mm[Hg] [facility] Diastolic blood 2021-04-07 21:34:00 50 mm[Hg] [facility] Heart rate 2021-04-07 21:34:00 69 /min [facility] Body height 2021-04-07 21:34:00 167.6 cm [facility] Body weight 2021-04-07 21:34:00 97.977 kg [facility] BMI 2021-04-07 21:34:00 34.86 kg/m2 [facility] Body temperature 2021-04-07 21:30:00 36 Grace [facility] Respiratory rate 2021-04-07 21:30:00 16 /min [facility] Oxygen saturation in 2021-04-07 21:30:00 94 /min [facility] Arterial blood by [facility] Pulse oximetry Branch Systolic blood 2019-04-20 13:18:00 124 mm[Hg] [facility] Diastolic blood 2019-04-20 13:18:00 76 mm[Hg] [facility] Heart rate 2019-04-20 13:18:00 68 /min [facility] Body temperature 2019-04-20 13:18:00 36.17 Grace [facility] Respiratory rate 2019-04-20 13:18:00 18 /min [facility] Body height 2019-04-20 13:18:00 170.2 cm [facility] Body weight 2019-04-20 13:18:00 94.167 kg [facility] BMI 2019-04-20 13:18:00 32.51 kg/m2 [facility] Oxygen saturation in 2019-04-20 13:18:00 98 /min [facility]ial blood by [facility] Pulse oximetry Branch Systolic blood 2019-04-20 13:18:00 124 mm[Hg] [facility] Diastolic blood 2019-04-20 13:18:00 76 mm[Hg] [facility] Heart rate 2019-04-20 13:18:00 68 /min [facility] Body temperature 2019-04-20 13:18:00 36.17 Grace [facility] Respiratory rate 2019-04-20 13:18:00 18 /min [facility] Body height 2019-04-20 13:18:00 170.2 cm [facility] Body weight 2019-04-20 13:18:00 94.167 kg [facility] BMI 2019-04-20 13:18:00 32.51 kg/m2 [facility] Oxygen saturation in 2019-04-20 13:18:00 98 /min [facility] Systolic blood 2019-03-27 14:25:00 124 mm[Hg] [facility] Diastolic blood 2019-03-27 14:25:00 80 mm[Hg] [facility] Heart rate 2019-03-27 14:25:00 73 /min [facility] Respiratory rate 2019-03-27 14:25:00 17 /min [facility] Body height 2019-03-27 14:25:00 170.2 cm [facility] Body weight 2019-03-27 14:25:00 93.94 kg [facility] BMI 2019-03-27 14:25:00 32.44 kg/m2 [facility] Oxygen saturation in 2019-03-27 14:25:00 99 /min [facility] P[facility] Systolic blood 2019-03-03 16:28:00 135 mm[Hg] [facility] Diastolic blood 2019-03-03 16:28:00 79 mm[Hg] [facility] Heart rate 2019-03-03 16:28:00 89 /min [facility] Body temperature 2019-03-03 16:28:00 36.78 Grace [facility] Respiratory rate 2019-03-03 16:28:00 18 /min [facility] Body height 2019-03-03 16:28:00 170.2 cm [facility] Body weight 2019-03-03 16:28:00 93.305 kg [facility] BMI 2019-03-03 16:28:00 32.22 kg/m2 [facility] Oxygen saturation in 2019-03-03 16:28:00 97 /min [facility]terial blood by [facility] Pulse oximetry Branch Systolic blood 2019-03-06 17:30:00 111 mm[Hg] [facility] Diastolic blood 2019-03-06 17:30:00 72 mm[Hg] [facility] Heart rate 2019-03-06 17:30:00 62 /min [facility] [place] Body temperature 2019-03-06 17:30:00 36.33 Grace [facility] Respiratory rate 2019-03-06 17:30:00 18 /min [facility] Oxygen saturation in 2019-03-06 17:30:00 100 /min [facility] Arterial blood by [facility] Pulse oximetry Branch Body height 2019-03-04 05:30:00 170.2 cm [facility] Body weight 2019-03-04 05:30:00 92.579 kg [facility] BMI 2019-03-04 05:30:00 31.97 kg/m2 [facility] Heart rate 2018-10-26 21:30:00 70 /min [facility] Respiratory rate 2018-10-26 21:30:00 13 /min [facility] Systolic blood 2018-10-26 20:53:00 107 mm[Hg] [facility] Diastolic blood 2018-10-26 20:53:00 71 mm[Hg] [facility] Oxygen saturation in 2018-10-26 20:50:00 95 /min [facility] Arterial blood by [facility] Pulse oximetry Branch Body temperature 2018-10-26 20:32:00 36.22 Grace [facility] Body height 2018-10-26 16:35:00 170.2 cm Universi ty [facility] Body weight 2018-10-26 16:35:00 91.627 kg Universi ty [facility] BMI 2018-10-26 16:35:00 31.64 kg/m2 Universi ty [facility] Systolic blood 2018-09-15 20:27:00 146 mm[Hg] Univer sity of pressure [facility] Diastolic blood 2018-09-15 20:27:00 73 mm[Hg] Unive [facility]ity of [facility] Heart rate 2018-09-15 20:25:00 73 /min Universi ty [facility] Body temperature 2018-09-15 20:25:00 36.5 [facility] Res[facility] rate 2018-09-15 20:25:00 18 /min [facility] Body height 2018-09-15 20:25:00 172.7 cm Universi [facility] Body weight 2018-09-15 20:25:00 90.629 kg [facility] BMI 2018-09-15 20:25:00 30.38 kg/m2 [facility] Oxygen saturation in 2018-09-15 20:25:00 98 /min [facility] Arterial blood by [facility] Pulse oximetry [place] Systolic blood 2022-04-16 17:15:00 145 mm[Hg] Method [facility] pressure Diastolic blood 2022-04-16 17:15:00 66 mm[Hg] [facility] pressure Heart rate 2022-04-16 17:15:00 79 /min [facility] Body temperature 2022-04-16 17:15:00 36.67 Grace [facility] Respiratory rate 2022-04-16 17:15:00 20 /min [facility] Oxygen saturation in 2022-04-16 17:15:00 99 /min [facility] Arterial blood by Pulse oximetry BMI 2022-04-16 14:38:00 31.94 kg/m2 [facility] Body height 2022-04-16 14:38:00 170.2 cm [facility] Body weight 2022-04-16 14:38:00 92.488 kg [facility] Procedures Procedure Date / Time Performing Clinician Source Performed CT HEAD WO CONTRAST 2022-04-23 18:24:37 Sandie Almaraz [facility] URINALYSIS 2022-04-23 17:45:00 Sandie Almaraz [facility] XR CHEST 1 VW 2022-04-23 17:29:00 Sandie Almaraz [facility] LIPASE 2022-04-23 17:04:00 Sandie Almaraz [facility] MAGNESIUM 2022-04-23 17:04:00 Sandie Almaraz [facility] TROPONIN I 2022-04-23 17:04:00 Sandie Almaraz [facility] COMP. METABOLIC PANEL 2022-04-23 17:04:00 Sandie Almaraz [facility] ([id number]) [facility] CBC WITH DIFF 2022-04-23 17:04:00 Sandie Almaraz [facility] CONSENT/REFUSAL FOR 2022-04-23 15:40:29 Doctor Unassigned, [facility] DIAGNOSIS AND TREATMENT [facility] [place] SURGICAL PATHOLOGY 2022-04-16 17:43:00 Faby Blair [facility] REQUEST COLONOSCOPY 2022-04-16 16:13:[address] [facility] spital URINALYSIS 2022-03-09 19:50:00 Fawn Sterling [facility] CONSENT/REFUSAL FOR 2022-03-09 17:22:31 Doctor Unassigned, [facility] DIAGNOSIS AND TREATMENT [facility] [place] NOTICE OF PRIVACY 2022-02-21 02:38:01 Doctor Unassnida, [facility] PRACTICES [facility] [place] CONSENT/REFUSAL FOR 2022-02-21 02:37:40 Doctor Unassigned, [facility] DIAGNOSIS AND TREATMENT [facility] FL UGI W OR WO KUB 2022-02-20 15:54:14 Jackson Enamorado [facility] SURGICAL PATHOLOGY 2021-11-03 15:10:00 Faby Blair [facility] REQUEST US UPPER GI TRACT, 2021-11-03 13:29:00 Faby Blair [facility] ENDOSCOPIC CBC WITH PLATELET AND 2021-11-03 13:13:00 Faby Blair [facility] DIFFERENTIAL MANUAL DIFFERENTIAL 2021-11-03 13:13:00 [facility] WITH PLATELET AND 2021-11-03 13:13:00 Faby Blair [facility] DIFFERENTIAL ASSIGNMENT OF BENEFITS 2021-07-31 19:51:44 Doctor Unassigned, [facility] [place] BARIUM SWALLOW 2021-06-11 15:38:[facility] [place] US ABDOMEN COMPLETE 2021-06-11 15:10:00 [facility] [place] ASSIGNMENT OF BENEFITS 2021-06-11 13:49:32 Doctor Unassigned, Un [facility] [place] TRANSTHORACIC ECHO (TTE) 2021-04-07 20:23:00 Ammon Hardy [facility] COMPLETE W/ CONTRAST Medical Bra [facility] TROPONIN I 2021-04-07 11:11:00 [facility] BASIC METABOLIC PANEL 2021-04-07 11:11:00 [facility] (NA, K, CL, CO2, GLUCOSE, Medica l Branch BUN, CREATININE, CA) LIPID PANEL ([id number])(TOTAL 2021-04-07 11:11:00 [facility] CHOLESTEROL, [facility] TRIGLYCERIDES, HDL) CBC WITH DIFF 2021-04-07 11:11:00 [facility] TROPONIN I 2021-04-07 05:40:00 [facility] 2021-04-07 01:06:00 [facility] CBC WITH DIFF 2021-04-07 00:59:00 Augustine [facility] PROTHROMBIN TIME / INR 2021-04-07 00:59:00 Augustine [facility] XR CHEST 1 VW 2021-04-07 00:51:41 Augustine [facility] TROPONIN I 2021-04-07 00:43:00 Augustine [facility] COMP. METABOLIC PANEL 2021-04-07 00:43:00 [id number] N-TERMINAL PRO-BNP 2021-04-07 00:43:00 Marta Bradshaw [facility] Medical Branch COVID-19 (ID NOW RAPID 2021-04-07 00:43:00 Marta Bradshaw [facility] TESTING) Medical Branch LAB ONLY COVID 2021-04-07 00:43:00 Marta Bradshaw [facility] INTERPRETATION [facility] HB ECG ROUTINE & RHYTHM 2021-04-07 00:20:46 Marta Bradshaw [facility] NOTICE OF PRIVACY 2021-04-07 00:16:15 Doctor Unassigned, [facility] PRACTICES [facility] [place] CONSENT/REFUSAL FOR 2021-04-07 00:16:01 Doctor Unazuly, [facility] DIAGNOSIS AND TREATMENT [facility] AUTHORIZATION FOR RELEASE 2019-04-27 05:01:00 Doctor Umberto, [facility] URODYNAMIC STUDY DATA 2019-03-27 06:01:00 Doctor Unazuly, [facility] BASIC METABOLIC PANEL 2019-03-06 11:15:00 Katlin bere [facility] (NA, K, CL, CO2, GLUCOSE, Medica l Branch BUN, CREATININE, CA) CBC WITH DIFFERENTIAL 2019-03-06 11:15:00 [facility] LACTATE DEHYDROGENASE 2019-03-05 21:30:00 Cha[facility]y Shah [facility] PROTHROMBIN TIME / INR 2019-03-05 21:30:00 Chauncey Shah [facility] D-DIMER 2019-03-05 21:30:00 Chauncey Shah [facility] ACTIVATED PARTIAL 2019-03-05 21:30:00 Chauncey Shah [facility] THRMPLAS SUDHIR [facility] FIBRINOGEN 2019-03-05 21:30:00 Alyssa [facility] CBC WITH DIFFERENTIAL 2019-03-05 21:30:00 [facility]y [facility] CREATINE KINASE 2019-03-05 10:48:00 Abdullah, [facility] FERRITIN SERUM 2019-03-05 10:48:00 Alyssa [facility] BASIC METABOLIC PANEL 2019-03-05 10:48:00 Franky Dalal [facility] (NA, K, CL, CO2, GLUCOSE, Medica l Branch BUN, CREATININE, CA) CBC WITH DIFFERENTIAL 2019-03-05 10:48:00 Franky [facility]al [facility] VITAMIN B12, LEVEL 2019-03-04 11:50:00 Chauncey Shah [facility] FOLATE 2019-03-04 11:50:00 Alyssa [facility] FREE T4 2019-03-04 11:50:00 Alyssa [facility] THYROID STIMULATING 2019-03-04 11:50:00 Chauncey Shah [facility] HORMONE [facility] BASIC METABOLIC PANEL 2019-03-04 11:50:00 Franky Dalal [facility] (NA, K, CL, CO2, GLUCOSE, Medica l Branch BUN, CREATININE, CA) IRON PANEL 2019-03-04 11:50:00 [facility] WITH DIFFERENTIAL 2019-03-04 11:50:00 Franky [facility]al [facility] FREE T3 2019-03-04 11:50:00 [facility]a [facility] PROCALCITONIN 2019-03-04 11:50:00 Franky [facility] ABDOMEN PELVIS W WO 2019-03-04 07:23:52 Franky Dalal [facility] CONTRAST [facility] CBC WITH DIFFERENTIAL 2019-03-04 02:43:00 [facility]iza [facility] XR CHEST 1 VW 2019-03-04 02:35:27 Eliza Bowie [facility] ADC,CLC OR LCC ONLY - 2019-03-04 02:30:00 Eliza Bowie [facility] INFLUENZA A & B DIRECT Medical B [facility] ANTIGEN MAGNESIUM 2019-03-04 02:04:00 [facility]lin [facility] HEPATIC FUNCTION PANEL 2019-03-04 02:04:00 KatlinFranky morocho [facility] ([id number]) (ALB,T.PRO,BILI Medical Branch T,BU/BC,ALT,AST,ALK PHOS) BASIC METABOLIC PANEL 2019-03-04 02:04:00 Eliza Bowie [facility] (NA, K, CL, CO2, GLUCOSE, Medica l Branch BUN, CREATININE, CA) LACTIC ACID WHOLE BLOOD 2019-03-04 01:57:00 Eliza Bowie [facility] [place] ASSIGNMENT OF BENEFITS 2019-03-04 01:18:10 Doctor Unassigned, [facility] Name [facility] [place] NOTICE OF PRIVACY 2019-03-04 01:15:44 Doctor Krysssnida, [facility] PRACTICES [facility] CONSENT/REFUSAL FOR 2019-03-04 01:15:31 Doctor Umberto, [facility] DIAGNOSIS AND TREATMENT [facility] [place] URINALYSIS 2019-03-03 19:07:00 [facility] URINE CULTURE 2019-03-03 19:07:00 [facility] DISCLOSURE AND CONSENT, 2019-03-03 06:01:00 Doctor Umberto, [facility] MEDICAL AND SURGICAL [facility] PROCEDURES INTUBATION 2018-10-26 19:14:15 [facility] ASSIGNMENT OF BENEFITS 2018-10-26 16:07:13 [facility] Name Medical Branch COMP. METABOLIC PANEL 2018-09-27 15:25:00 Hari, Ewelina [facility] ([id number]) Medical Branch CBC WITH DIFFERENTIAL 2018-09-27 15:25:00 [facility] Medical Branch ASSIGNMENT OF BENEFITS 2018-09-27 14:41:15 [facility] Name Medical Branch DISCLOSURE AND CONSENT, 2018-09-15 05:01:00 Doctor Umberto, [facility] MEDICAL AND SURGICAL [facility] PROCEDURES Plan of Care Planned Activity Planned Date Details Comments Source Future Scheduled 2022-06-24 65+ PNEUMOCOCCAL [facility] Test 10:56:49 VACCINE (1 - PCV) [code = 65+ PNEUMOCOCCAL VACCINE (1 - PCV)] Future Scheduled 2022-06-24 COVID-19 VACCINE (4 - [facility] Test 10:56:49 Booster for Pfizer series) [code = COVID-19 VACCINE (4 - Booster for Pfizer series)] Future Scheduled 2022-06-24 SHINGLES VACCINES (2 [facility] Test 10:56:49 of 2) [code = SHINGLES VACCINES (2 of 2)] Future Scheduled 2022-06-24 INFLUENZA VACCINE [facility] Test 10:56:49 [code = INFLUENZA VACCINE] Future Scheduled 2022-05-29 65+ [facility]OCO[facility] Test 09:29:34 VACCINE (1 - PCV) [code = 65+ PNEUMOCOCCAL VACCINE (1 - PCV)] Future Scheduled 2022-05-29 COVID-19 VACCINE (4 - [facility] Test 09:29:34 Booster for Pfizer series) [code = COVID-19 VACCINE (4 - Booster for Pfizer series)] Future Scheduled 2022-05-29 SHINGLES VACCINES (2 [facility] Test 09:29:34 of 2) [code = SHINGLES VACCINES (2 of 2)] Future Scheduled 2022-05-29 INFLUENZA VACCINE [facility] Test 09:29:34 [code = INFLUENZA VACCINE] Future Scheduled 2022-05-04 65+ [facility]OCO[facility] Test 12:29:40 VACCINE (1 - PCV) [code = 65+ PNEUMOCOCCAL VACCINE (1 - PCV)] Future Scheduled 2022-05-04 COVID-19 VACCINE (4 - [facility] Test 12:29:40 Booster for Pfizer series) [code = COVID-19 VACCINE (4 - Booster for Pfizer series)] Future Scheduled 2022-05-04 SHINGLES VACCINES (2 [facility] Test 12:29:40 of 2) [code = SHINGLES VACCINES (2 of 2)] Future Scheduled 2022-04-30 65+ [facility]OCOCCAL [facility] Test 10:09:26 VACCINE (1 - PCV) [code = 65+ PNEUMOCOCCAL VACCINE (1 - PCV)] Future Scheduled 2022-04-30 COVID-19 VACCINE (4 - [facility] Test 10:09:26 Booster for Pfizer series) [code = COVID-19 VACCINE (4 - Booster for Pfizer series)] Future Scheduled 2022-04-30 SHINGLES VACCINES (2 [facility] Test 10:09:26 of 2) [code = SHINGLES VACCINES (2 of 2)] Encounters Start End Encounter Admission Attending Care Care Encounter Source Date/Time Date/Time Type Type Clinicians Facility Department ID 2022-06-24 [facility] [id number] Common 09:31:00 Gilles [id number] [facility] 2022-03-18 Out[facility] [id number] Common 14:59:01 Gilles [id number] [facility] 2021-12-15 Out[facility] [id number] Common 16:05:01 Gilles [id number] [facility] 2021 Out[facility], [facility] [id number] Common 13:49:01 Gilles [id number] [facility] 2021-03-05 [facility] [id number] Common 14:22:46 Gilles [id number] [facility] 2021-03-05 [facility] [id number] Common 12:26:24 Gilles [id number] [facility] 2021-03-05 [facility] [id number] Common 11:14:41 Gilles [address] [facility] 2022-05-26 2022-05-26 Telemedici Fei, 1.2.840.1 [id number] Methodi 14:30:00 16:10:26 [place] [address]11.1.[address] 3.430.2.7 Hospit a .3.528303 l .8 2022-05-26 2022-05-26 Telemedici Fei, 1.2.840.1 [id number] Methodi 14:30:00 16:10:26 ne Jackson [address]661.1.[address] 3.430.2.7 Hospit a .3.054225 l .8 2022-04-27 2022-04-27 Telephone Adam, 1.2.840.6 [id number] Methodi 00:00:00 00:00:[address] 3.430.2.7 Hospit a .3.596349 l .8 2022-04-27 2022-04-27 Telephone Jair 1.2.840.9 [id number] Methodi 00:00:00 00:00:[address] 3.430.2.7 Hospit a .3.163626 l .8 2022-04-23 2022-04-23 Emergency X [facility] ERT [id number] Univers 11:19:00 14:15:00 SANDIE coronel [facility] 2022-04-23 2022-04-23 Emergency [facility] [id number] Univers 11:19:00 14:15:00 Sandie WHITLEY 350.1.13.10 homer [facility] 4.2.7.2.686 [facility] [id number] [address] 2022-04-16 2022-04-16 [facility] Faby Blair 1.2.840.1 [id number] Methodi 07:52:00 23:59:[address] 3.430.2.7 Hospit a .3.442056 l .8 2022-04-16 2022-04-16 [facility] Faby Blair 1.2.840.1 [id number] Methodi 07:52:00 23:59:[address] 3.430.2.7 Hospit a .3.152430 l .8 2022-04-16 2022-04-16 Anesthesia Martha Whitman 1.2.840.1 [id number] Methodi 10:13:00 10:50:00 Event Slime Scott 57604.1.[address] 3.430.2.7 Hospit a .3.000103 l .8 2022-04-16 2022-04-16 Anesthesia Martha Whitman 1.2.840.1 [id number] Methodi 10:13:00 10:50:00 Event Slime Scott [address]504.1.[address] 3.430.2.7 Hospit a .3.842049 l .8 2022-04-16 2022-04-16 Surgery Faby Blair 1.2.840.1 [id number] Methodi 10:00:00 10:30:[address] 3.430.2.7 Hospit a .3.927461 l .8 2022-04-16 2022-04-16 Surgery Faby Blair 1.2.840.1 [id number] Methodi 10:00:00 10:30:[address] 3.430.2.7 Hospit a .3.922386 l .8 2022-04-16 2022-04-16 Travel 1.2.840.1 [id number] [id number] Methodi 00:00:00 00:00:[address] 3.430.2.7 0.2.7.3.698 Ho spita .3.789070 084.8 l .8 2022-04-16 2022-04-16 Travel 1.2.840.1 1.2.721.848 [id number] Methodi 00:00:00 00:00:[address] 3.430.2.7 0.2.7.3.698 Ho spita .3.319715 084.8 l .8 2022-04-15 2022-04-15 Documentat Ramirez, 1.2.840.1 [id number] Methodi 00:00:00 00:00:00 nabila Mccauley [address] 3.430.2.7 Hospit a .3.185022 l .8 2022-04-15 2022-04-15 Documentat Ramirez, 1.2.840.1 [id number] Methodi 00:00:00 00:00:00 ion Parisa 02866.1.[address] 3.430.2.7 Hospit a .3.500756 l .8 2022-03-18 2022-03-18 Telephone Faby Blair 1.2.840.1 [id number] Methodi 00:00:00 00:00:[address] 3.430.2.7 Hospit a .3.223790 l .8 2022-03-18 2022-03-18 Orders Ramirez, 1.2.840.1 [id number] 254628 4884 Methodi 00:00:00 00:00:00 Only Parisa 94038.1.[address] 3.430.2.7 Hospit a .3.570253 l .8 2022-03-18 2022-03-18 Orders Ramirez, 1.2.840.1 [id number] [id number] 8388 Methodi 00:00:00 00:00:00 Only Parisa 17977.1.[address] 3.430.2.7 Hospit a .3.441646 l .8 2022-03-18 2022-03-18 Telephone Faby Blair 1.2.840.1 [id number] Methodi 00:00:00 00:00:[address] 3.430.2.7 Hospit a .3.913146 l .8 2022-03-16 2022-03-16 Faby Rico 1.2.840.1 [id number] 21 [id number] Methodi 00:00:00 00:00:[address] 3.430.2.7 Hospit a .3.232301 l .8 2022-03-16 2022-03-16 Faby Rico 1.2.840.1 [id number] Methodi 00:00:00 00:00:[address] 3.430.2.7 Hospit a .3.359104 l .8 2022-03-13 2022-03-13 Telemedici Faby Blair 1.2.840.1 [id number] 2 [id number] Methodi 10:30:00 10:36:[address] 3.430.2.7 Hospit a .3.301470 l .8 2022-03-13 2022-03-13 Telemedici Faby Blair 1.2.840.1 [id number] 2 [id number] Methodi 10:30:00 10:36:[address] 3.430.2.7 Hospit a .3.087904 l .8 2022-03-11 2022-03-11 Telephone Adam, 1.2.840.3 [id number] 707 7309821 Methodi 00:00:00 00:00:[address] 3.430.2.7 Hospit a .3.293899 l .8 2022-03-11 2022-03-11 Telephone Adam, 1.2.840.5 [id number] 637 2700419 Methodi 00:00:00 00:00:[address] 3.430.2.7 Hospit a .3.954015 l .8 2022-03-09 2022-03-09 [id number] 3166 Univers 11:41:00 14:58:00 FAWN coronel [facility] 2022-03-09 2022-03-09 Emergency Yesenia, [facility] 1.2.840.114 10 [id number] Univers 11:41:00 14:58:00 Fawn WHITLEY 350.1.13.10 i [facility] 4.2.7.2.686 [facility] [phone] [place] [address] [place] 2022-02-20 2022-02-20 [facility], 1.2.840.1 [id number] 45022 79634 Methodi 08:22:19 23:59:00 Encounter Jackson 28330.1.[address] 3.430.2.7 Hospit a .3.858164 l .8 2022-02-20 2022-02-20 [facility], 1.2.840.1 [id number] 84086 46966 Methodi 08:22:19 23:59:00 Encounter Jackson 13333.1.[address] 3.430.2.7 Hospit a .3.929636 l .8 2022-02-20 2022-02-20 Emergency X [facility] E[facility] 1043 [id number] Univers 21:05:00 21:55:00 , FERMIN coronel [facility] 2022-02-20 2022-02-20 Emergency [facility] 1.2.840.114 [id number] [facility] 21:05:00 21:55:00 , Fermin WHITLEY 350.1.13.10 i ty [facility] 4.2.7.2.686 [facility] [phone] [address] 2022-02-20 2022-02-20 Travel 1.2.840.1 1.2.004.800 0040 113447 Methodi 00:00:00 00:00:[address] 3.430.2.7 0.2.7.3.698 Ho spita .3.989851 084.8 l .8 2022-02-20 2022-02-20 Travel 1.2.840.1 1.2.819.613 8097 959200 Methodi 00:00:00 00:00:[address] 3.430.2.7 0.2.7.3.698 Ho spita .3.970952 084.8 l .8 2022-02-12 2022-02-12 Travel 1.2.840.1 1.2.551.890 1576 993845 Methodi 00:00:00 00:00:[address] 3.430.2.7 0.2.7.3.698 Ho spita .3.457150 084.8 l .8 2022-02-12 2022-02-12 Travel 1.2.840.1 1.2.826.878 5237 588868 Methodi 00:00:00 00:00:[address] 3.430.2.7 0.2.7.3.698 Ho spita .3.005670 084.8 l .8 2021-12-30 2021-12-30 Office Fei, 1.2.840.1 [id number] 868041 5827 Methodi 08:30:00 10:36:14 Visit Jackson 72924.1.[address] 3.430.2.7 Hospit a .3.872696 l .8 2021-12-30 2021-12-30 Office Fei, 1.2.840.1 [id number] 435844 4332 Methodi 08:30:00 10:36:14 Visit Jackson 66310.1.[address] 3.430.2.7 Hospit a .3.767096 l .8 2021-12-30 2021-12-30 Travel 1.2.840.1 1.2.644.749 1406 829428 Methodi 00:00:00 00:00:[address] 3.430.2.7 0.2.7.3.698 Ho spita .3.864214 084.8 l .8 2021-12-30 2021-12-30 Travel 1.2.840.1 1.2.476.826 8549 235514 Methodi 00:00:00 00:00:[address] 3.430.2.7 0.2.7.3.698 Ho spita .3.722470 084.8 l .8 2021-11-13 2021-11-13 Telephone Adam, 1.2.840.7 [id number] 940 2839463 Methodi 00:00:00 00:00:[address] 3.430.2.7 Hospit a .3.601334 l .8 2021-11-13 2021-11-13 Telephone Ramirez, 1.2.840.1 [id number] 2099 012103 Methodi 00:00:00 00:00:[address] 3.430.2.7 Hospit a .3.676671 l .8 2021-11-13 2021-11-13 Telephone Adam, 1.2.840.1 [id number] 023 7137284 Methodi 00:00:00 00:00:[address] 3.430.2.7 Hospit a .3.081583 l .8 2021-11-13 2021-11-13 Telephone Ramirez, 1.2.840.1 [id number] 2099 177870 Methodi 00:00:00 00:00:[address] 3.430.2.7 Hospit a .3.318707 l .8 2021-11-11 2021-11-11 Telephone Ramirez, 1.2.840.1 [id number] 2099 729746 Methodi 00:00:00 00:00:[address] 3.430.2.7 Hospit a .3.814461 l .8 2021-11-11 2021-11-11 Telephone Ramirez, 1.2.840.1 [id number] 2099 456093 Methodi 00:00:00 00:00:[address] 3.430.2.7 Hospit a .3.827962 l .8 2021-11-06 2021-11-06 Telephone Ramirez, 1.2.840.1 [id number] 2099 863263 Methodi 00:00:00 00:00:[address] 3.430.2.7 Hospit a .3.004792 l .8 2021-11-06 2021-11-06 Orders Ramirez, 1.2.840.1 [id number] 143404 0213 Methodi 00:00:00 00:00:00 Only Parisa 77212.1.[address] 3.430.2.7 Hospit a .3.188866 l .8 2021-11-06 2021-11-06 Telephone Ramirez, 1.2.840.1 [id number] 2100 914834 Methodi 00:00:00 00:00:[address] 3.430.2.7 Hospit a .3.126679 l .8 2021-11-06 2021-11-06 Orders Ramirez, 1.2.840.1 [id number] 140225 3797 Methodi 00:00:00 00:00:00 Only Parisa 49872.1.[address] 3.430.2.7 Hospit a .3.165546 l .8 2021-11-03 2021-11-03 Surgery MukundFaby falcon 1.2.840.1 [id number] 2099 488961 Methodi 08:30:00 10:00:[address] 3.430.2.7 Hospit a .3.588448 l .8 2021-11-03 2021-11-03 Surgery MukundFaby falcon 1.2.840.1 [id number] 2099 044897 Methodi 08:30:00 10:00:[address] 3.430.2.7 Hospit a .3.178735 l .8 2021-11-03 2021-11-03 [facility] 1.2.840.1 [id number] 314 3315967 Methodi 06:34:00 09:46:[address] 3.430.2.7 Hospit a .3.662864 l .8 2021-11-03 2021-11-03 [facility] Faby 1.2.840.1 [id number] 533 8012179 Methodi 06:34:00 09:46:[address] 3.430.2.7 Hospit a .3.315823 l .8 2021-11-03 2021-11-03 Anesthesia Tiana Martinez 1.2.840.1 [id number] Methodi 08:30:00 09:04:00 Event Millicent Rivero 95607.1.[address] 3.430.2.7 Hospit a .3.551498 l .8 2021-11-03 2021-11-03 Anesthesia Tiana Martinezleanne bird 1.2.840.1 [id number] 6041142596 Methodi 08:30:00 09:04:00 Event Millicent Rviero 46797.1.[address] 3.430.2.7 Hospit a .3.617640 l .8 2021-11-03 2021-11-03 Travel 1.2.840.1 1.2.507.390 3535 131328 Methodi 00:00:00 00:00:[address] 3.430.2.7 0.2.7.3.698 Ho spita .3.278396 084.8 l .8 2021-11-03 2021-11-03 Travel 1.2.840.1 1.2.950.926 7043 831245 Methodi 00:00:00 00:00:[address] 3.430.2.7 0.2.7.3.698 Ho spita .3.246798 084.8 l .8 2021-10-22 2021-10-22 Telephone Faby Blair 1.2.840.1 [id number] 21 [id number] Methodi 00:00:00 00:00:[address] 3.430.2.7 Hospit a .3.655981 l .8 2021-10-22 2021-10-22 Telephone Faby Blair 1.2.840.1 [id number] 21 [id number] Methodi 00:00:00 00:00:[address] 3.430.2.7 Hospit a .3.831635 l .8 2021-10-21 2021-10-21 Telephone Faby Blair 1.2.840.1 [id number] 21 [id number] Methodi 00:00:00 00:00:[address] 3.430.2.7 Hospit a .3.111743 l .8 2021-10-21 2021-10-21 Telephone Faby Blair 1.2.840.1 [id number] 21 [id number] Methodi 00:00:00 00:00:[address] 3.430.2.7 Hospit a .3.164071 l .8 2021-10-20 2021-10-20 Telephone Faby Blair 1.2.840.1 [id number] 21 [id number] Methodi 00:00:00 00:00:[address] 3.430.2.7 Hospit a .3.892773 l .8 2021-10-20 2021-10-20 Telephone Faby Blair 1.2.840.1 [id number] 21 [id number] Methodi 00:00:00 00:00:[address] 3.430.2.7 Hospit a .3.280826 l .8 2021-10-17 2021-10-17 Telephone Faby Blair 1.2.840.1 [id number] 21 [id number] Methodi 00:00:00 00:00:[address] 3.430.2.7 Hospit a .3.608275 l .8 2021-10-17 2021-10-17 Telephone Faby Blair 1.2.840.1 [id number] 21 [id number] Methodi 00:00:00 00:00:[address] 3.430.2.7 Hospit a .3.457718 l .8 2021-10-16 2021-10-16 Office Faby Blair 1.2.840.1 [id number] 2099 852439 Methodi 15:00:00 15:00:[address] 3.430.2.7 Hospit a .3.545406 l .8 2021-10-16 2021-10-16 Office Faby Blair 1.2.840.1 [id number] 2099 456469 Methodi 15:00:00 15:00:[address] 3.430.2.7 Hospit a .3.246302 l .8 2021-10-16 2021-10-16 Travel 1.2.840.1 1.2.479.070 7404 853038 Methodi 00:00:00 00:00:[address] 3.430.2.7 0.2.7.3.698 Ho spita .3.361449 084.8 l .8 2021-10-16 2021-10-16 Travel 1.2.840.1 1.2.147.935 1840 138760 Methodi 00:00:00 00:00:[address] 3.430.2.7 0.2.7.3.698 Ho spita .3.850546 084.8 l .8 2021-10-15 2021-10-15 Telephone Mian 1.2.840.1 [id number] 21 [id number] Methodi 00:00:00 00:00:[address] 3.430.2.7 Hospit a .3.285239 l .8 2021-10-15 2021-10-15 Telephone Mian 1.2.840.1 [id number] 21 [id number] Methodi 00:00:00 00:00:[address] 3.430.2.7 Hospit a .3.194132 l .8 2021-07-31 2021-07-[address] [facility] 515 [id number] Univers 14:57:54 23:59:00 WALT Bird [facility] 2021-07-31 2021-07-31 [facility] 1.2.840.114 9 [id number] Univers 14:57:54 23:59:00 Encounter Walt bird 350.1.13.10 ity [facility] 4.2.7.2.686 [facility] [phone] [address] 2021-07-312021-07-31 Orders Doctor LUPIS 1.2.840.114 [id number] Univers 00:00:00 00:00:00 Only Unassigned, MARGI 350.1.13.10 ity of [facility] 4.2.7.2.686 [place] as [phone] [facility] [address] [place] 2021-07-24 2021-07-[address] [facility] 723 [id number] Univers 00:00:00 00:00:00 WALT Bird [facility] 2021-06-11 2021-06-11 [facility] 1.2.840.114 9 [id number] Univers 08:57:52 23:59:00 Encounter Walt bird 350.1.13.10 ity [facility] [phone] [place] [address] [place] 2021-06-11 2021-06-[address] [facility] 604 [id number] Univers 08:52:48 08:56:00 WALT Bird [facility] 2021-06-11 2021-06-11 [facility] 1.2.840.114 9 [id number] Univers 08:52:48 08:56:00 Encounter Walt bird 350.1.13.10 [place] [phone] [facility] [address] 2021-06-11 2021-06-11 Orders Doctor BAUGH 1.2.840.114 [id number] Univers 00:00:00 00:00:00 Only Unassigned, MARGI 350.1.13.10 ity of [facility] 4.2.7.2.686 [place] as [phone] [place] [address] [address] 2021-04-08 2021-04-08 Transition BAMBI Ovalle 1.2.840.114 916 26098 Univers 00:00:00 00:00:00 of Care Carroll WETZEL 350.1.13.10 [place] [id number] [facility] [address] 2021-04-06 2021-04-07 Outpatient X ROWAN [facility] МАРИЯ [id number] Univers 18:17:00 18:00:00 REMY ity [facility] 2021-04-06 2021-04-07 Emergency Marta Bradshaw [facility] 1.2.840 .114 [id number] Univers 18:17:00 18:00:00 [facility] Donah[facility]13.10 [facility] 4.2.7[facility]2.686 [facility] [phone] [facility] [address] 2020-04-02 2020-04-02 (TEL) STLMLC STLMLC [id number] Co mmon 00:00:00 00:00:00 [facility] 2020-04-01 2020-04-01 (TEL) STLMLC STLMLC [id number] Co mmon 00:00:00 00:00:00 [facility] 2019-09-04 2019-09-04 [facility] 31 [id number] Common 15:45:00 15:45:00 t Specialty/U Sp evangelina Specialty rology - [facility] /[facility]rology Clinic [facility] 2019-07-20 2019-07-20 Outpatient R HARI [facility] [id number] [id number] Univers 09:30:00 09:30:00 [facility] 2019-04-27 2019-04-27 [facility] 30 [id number] Common 09:30:00 09:30:00 t Specialty/U Sp evangelina Specialty rology - [facility] /Urology Clinic [facility] 2019-04-27 2019-04-27 Orders Doctor BAUGH 1.2.840.114 [id number] 00:00:00 00:00:00 Only UnassignedMARGI 350.1.13.10 [facility] [facility] [facility] 4.2.7.2.686 [id number] 009 2019-04-27 2019-04-27 Orders Doctor BAUGH 1.2.840.114 [id number] Univers 00:00:00 00:00:00 Only UnassignedMARGI 350.1.13.10 ity of [facility] 4.2.7.2.686 [place] [phone] [address] 2019-04-21 2019-04-21 Telephone [facility] 1.2.607.787 7606 9996 00:00:00 00:00:00 Ewelina SPECIALTY 350.1.13.10 CARE 4.2.7.2.686 CENTER AT [phone] JOSELYN [address] [place] [address] 2019-04-21 2019-04-21 Telephone [facility] 1.2.764.766 8716 9996 Univers 00:00:00 00:00:00 Ewelina SPECIALTY 350.1.13.10 it[place] [phone] Al jaiden ALVES [address] [place] [address] 2019-04-20 2019-04-20 Office [facility] 1.2.840.114 [id number] 08:05:41 09:17:43 Visit Ewelina SPECIALTY 350.1.13.10 CARE 4.2.7.2.686 CENTER AT [phone] [address] 2019-04-20 2019-04-20 Office [facility] 1.2.840.114 [id number] Univers 08:05:41 09:17:43 Visit Ewelina SPECIALTY 350.1.13.10 ity [place] [phone] Al jaiden COLUMBIANaina [address] [place] [address] 2019-04-20 2019-04-[address] [facility] [id number] Univers 08:30:00 08:30:00 EWELINA ity of [facility] 2019-03-27 2019-03-27 Office [facility] 1.2.840.114 [id number] Univers 07:51:12 09:06:35 Visit Ricюлияa N SPECIALTY 350.1.13.10 it[place] [phone] Al jaiden [address] 2019-03-27 2019-03-27 Orders Doctor BAUGH 1.2.840.114 [id number] 00:00:00 00:00:00 Only Unassigned, MARGI 350.1.13.10 [facility] 4.2.7.2.686 [id number] 009 2019-03-27 2019-03-27 Orders Doctor BAUGH 1.2.840.114 [id number] Univers 00:00:00 00:00:00 Only Unassigned, MARGI 350.1.13.10 ity of [facility] 4.2.7.2.686 [place] [id number] [facility] [address] [place] 2019-03-03 2019-03-07 Nurse Nurse, s [facility] 1.2.840.114 [id number] Univers 09:52:51 08:19:09 Visit Magalys Leos SPECIALTY 350.1.1 3.10 it[place] [phone] Al dicjose VICTORY 098 [facility] 2019-03-07 2019-03-07 Telephone Jimmy You [facility] 1.2.840.114 [id number] [id number] Univers 00:00:00 00:00:00 Leon SPECIALTY 350.1.13.10 it[place] [phone] Al dicjose VICTORY 098 [facility] 2019-03-07 2019-03-07 Transition Bambi Rodriguez 1.2.840.114 738 62384 Univers 00:00:00 00:00:00 of Care Ely Rashard 350.1.13.10 it y of [place] [phone] [facility] [address] [place] 2019-03-03 2019-03-06 Hospital Eliza Bowie [facility] 1.2.840.11 4 [id number] Univers 19:31:34 14:20:00 Encounter Franky Dalal 350.1.13.10 ity of [place] [phone] [facility] [address] [place] 2019-03-03 2019-03-03 Nurse Saw BAUGH 1.2.840.114 73 [id number] Univers 00:00:00 00:00:00 Triage d, Jodee G MARGI 350.1.13.10 ity of HOSPITAL 4.2.7.2.686 [place] [phone] [facility] [address] [place] 2019-03-03 2019-03-03 Orders Doctor LUPIS 1.2.840.114 [id number] Univers 00:00:00 00:00:00 Only Unassigned, MARGI 350.1.13.10 ity of [facility] 4.2.7.2.686 [place] [id number] [facility] [address] [place] 2019-03-03 2019-03-03 Telephone [facility] 1.2.710.942 7386 0336 Univers 00:00:00 00:00:00 Ewelina SPECIALTY 350.1.13.10 ity [place] [phone] [place] 006698 [facility] 2018-10-27 2018-10-27 Transition Bambi Mcpherson 1.2.840.114 715 02876 Univers 00:00:00 00:00:00 of Care Nadeen Wetzel 350.1.13.10 it y of [place] [phone] [facility] [address] [place] 2018-10-26 2018-10-26 Hospital [facility] 1.2.840.114 [id number] Univers 11:07:00 17:32:00 Encounter [facility] 350.1.13.10 ity of [place]2.[place] [facility] [phone] [facility] 049 [facility] 2018-10-26 2018-10-26 Anesthesia [facility] 1.2.840.114 713 13296 Univers 13:43:00 15:35:00 Juliette SPECIALTY 350.1.13.10 it[place] [phone] Al jaiden [facility] 020 [facility] 2018-10-26 2018-10-26 Orders Doctor BAUGH 1.2.840.114 [id number] Univers 00:00:00 00:00:00 Only Unassigned, MARGI 350.1.13.10 ity of [facility] 4.2.7.2.686 [place] [phone] [facility] [address] [place] 2018-09-27 2018-09-27 Lending Advisor 1, Adc Lab [facility] 1.2.840.114 [id number] Univers 10:17:02 10:32:02 Visit Kelechi Noriegakhan Bruna 350.1.13.10 ity of [place] [phone] [facility] [address] [place] 2018-09-27 2018-09-27 Orders Doctor LUPIS 1.2.840.114 [id number] Univers 00:00:00 00:00:00 Only Unassigned, MARGI 350.1.13.10 ity of [facility] 4.2.7.2.686 [place] [phone] [address] 2018-09-16 2018-09-16 Case [facility] 1.2.840.114 [id number] 762 Univers 00:00:00 00:00:00 Management Magalys Braga SPECIALTY 350.1.13.10 [place] [phone] [address] 2018-09-15 2018-09-15 Office Hari [facility] 1.2.840.114 [id number] Univers 15:16:59 16:30:59 Visit Ewelina SPECIALTY 350.1.13.10 it[place] of [place] [phone] Al yaima[address] 2018-09-01 2018-09-01 Telephone Theodora Rowland 1.2.840.114 [id number] [facility] 00:00:00 00:00:00 H 350.1.13.10 it y of BUILDING 4.2.7.2.686 [place] [phone] [address] Results Test Description Test Time Test Comments Results Result Comments Source MAGNESIUM 2022-04-23 18:45:19 Test Item Value Reference Range Interpretation Comme nts MAGNESIUM (test code = 3329914707) 1.9 mg/dL 1.7-2.4 Lab Interpretation (test code = 85877-8) [id number] 17:41:09 Test Item Value Reference Range Interpretation Comments TROPONIN I (test code = 0.006 ng/mL <=0.034 7615100196) ADDIS (test code = ADDIS) Reference (Normal) Range (defined by the 99th percentile reference limit): <= 0.034 ng/mL Note: Cardiac troponin begins to rise 3-4 hours after the onset of ischemia. Repeat in 4-6 hours if the sample was drawn within 3-4 hours of the onset of the symptom and found normal. Diagnosis of myocardial injury is made with acute changes in cTn concentrations with at least one serial sample above the 99th percentile upper reference limit (URL), taken together with the patient's clinical presentation. Biotin has been reported to cause a negative bias, interpret results relative to patient's use of biotin. Lab Interpretation Normal (test code = 92924-1) [facility]. METABOLIC PANEL (83177)2022-04-23 17:30:27 Test Item Value Reference Range Interpretation Comments NA (test code = 140 mmol/L 135-145 3938369160) K (test code = 4.4 mmol/L 3.5-5.0 9726312485) CL (test code = 104 mmol/L 98-108 7948481841) CO2 TOTAL (test code = 27 mmol/L 23-31 0095983355) AGAP (test code = 9 2-16 8018051802) BUN (test code = 19 mg/dL 7-23 1732224704) GLUCOSE (test code = 91 mg/dL 70-110 0606448139) CREATININE (test code = 0.73 mg/dL 0.50-1.04 0747417171) TOTAL BILI (test code = 0.8 mg/dL 0.1-1.3 1219178916) CALCIUM (test code = 8.5 mg/dL 8.6-10.6 L 9758804574) T PROTEIN (test code = 6.7 g/dL 6.3-8.2 7921128942) ALBUMIN (test code = 4.2 g/dL 3.5-5.0 3738083468) ALK PHOS (test code = 65 U/L 34-122 4171902197) ALTv (test code = 22 U/L 5-35 1742-6) AST(SGOT) (test code = 30 U/L 13-40 8282636971) eGFR (test code = 76.7 mL/min/1.73m2 1463076672) ADDIS (test code = ADDIS) Association of Glomerular Filtration Rate (GFR) and Staging of Kidney Disease* + --+ --+ ------+| GFR (mL/min/1.73 m2) ?| With Kidney Damage ?| ?Without Kidney Damage+ --------+ --------+ +| ?>90 ?| ?Stage one ?| ? Normal ?+ ---+ ---+ -------+| ?60-89 ?| ?Stage two ?| ? Decreased GFR ? + --+ --+ ------+| ?30-59 ?| ?Stage three ?| ? Stage three ? + --+ --+ ------+| ?15-29 ?| ?Stage four ? | ? Stage four ?+ ---+ ---+ -------+| ?<15 (or dialysis) ? ?| ?Stage five ? | ? Stage five ?+ ---+ ---+ -------+ *Each stage assumes the associated GFR level has been in effect for at least three months. ?Stages 1 to 5, with or without kidney disease, indicate chronic kidney disease. Notes: Determination of stages one and two (with eGFR >59mL/min/1.73 m2) requires estimation of kidney damage for at least three months as defined by structural or functional abnormalities of the kidney, manifested by either:Pathological abnormalities or Markers of kidney damage (including abnormalities in the composition of the blood or urine or abnormalities in imaging tests). Lab Interpretation Abnormal (test code = 08781-9) [id number] Test Item Value Reference Range Interpretation Comments LIPASE (test code = 4888339748) 206 U/L 0-220 Lab Interpretation (test code = Normal 04276-6) [facility] WITH [id number] 17:23:27 Test Item Value Reference Range Interpretation Comments WBC (test code = 8.99 See_Comment [Automated 3690-2) message] The sy stem which generated this result transmitted reference range : 4.30 - 11.10 10*3/?L. The reference range was not used to interpret this result as normal/abnormal . RBC (test code = 4.66 See_Comment [Automated 789-8) message] The sy stem which generated this result transmitted reference range : 3.93 - 5.25 10*6/?L. The reference range was not used to interpret this result as normal/abnormal . HGB (test code = 12.9 g/dL 11.6-15.0 718-7) HCT (test code = 40.3 % 35.7-45.2 4544-3) MCV (test code = 86.5 fL 80.6-95.5 787-2) MCH (test code = 27.7 pg 25.9-32.8 785-6) MCHC (test code = 32.0 g/dL 31.6-35.1 786-4) RDW-SD (test code = 41.3 fL 39.0-49.9 30117-4) RDW-CV (test code = 13.3 % 12.0-15.5 788-0) PLT (test code = 63 See_Comment L [Automated 777-3) message] The sy stem which generated this result transmitted reference range : 166 - 358 10*3/ ?L. The reference r neetu was not used to interpret this result as normal/abnormal . MPV (test code = 12.5 fL 9.5-12.9 98415-5) NRBC/100 WBC (test 0.0 See_Comment [Automat ed code = [id number]) message] The system which generated this result transmitted reference range : 0.0 - 10.0 /100 WBCs. The refer ence range was not u sed to interpret th is result as normal/abnormal . NRBC x10^3 (test code See_Comment [Auto mated = [id number]) message] The s ystem which generated this result transmitted reference range : 10*3/?L. The reference range was not used to interpret this result as normal/abnormal . GRAN MAT (NEUT) % 63.7 % (test code = 770-8) IMM GRAN % (test code 0.80 % = [id number]) LYMPH % (test code = 27.1 % 736-9) MONO % (test code = 6.8 % 5905-5) EOS % (test code = 1.0 % 713-8) BASO % (test code = 0.6 % 706-2) GRAN MAT x10^3(ANC) 5.73 10*3/uL 1.88-7.09 (test code = 7675454928) IMM GRAN x10^3 (test 0.07 10*3/uL 0.00-0.06 H code = [id number]) LYMPH x10^3 (test code 2.44 10*3/uL 1.32-3.29 = 731-0) MONO x10^3 (test code 0.61 10*3/uL 0.33-0.92 = 742-7) EOS x10^3 (test code = 0.09 10*3/uL 0.03-0.39 711-2) BASO x10^3 (test code 0.05 10*3/uL 0.01-0.07 = 704-7) Lab Interpretation Abnormal (test code = 33742-2) [facility] [id number] 01:22:03 Test Item Value Reference Range Interpretation Comments Case number (test code = [id number]) Surgical pathology See link below for report (test code = PDF Lab Report 2255) Result status (test code This is Final Report = [id number]) for [id number] [place] [address] pathology [id number] 01:22:03 Test Item Value Reference Range Interpretation Comments Case number (test code = [id number]) Surgical pathology See link below for report (test code = PDF Lab Report 2255) Result status (test code This is Final Report = [id number]) [address] [id number] 01:22:03 Test Item Value Reference Range Interpretation Comments Case number (test code = [id number]) Surgical pathology See link below for report (test code = PDF Lab Report 2255) Result status (test code This is Final Report = [id number]) for [id number] [place] [address] pathology [id number] 01:22:03 Test Item Value Reference Range Interpretation Comments Case number (test code = [id number]) Surgical pathology See link below for report (test code = PDF Lab Report 2255) Result status (test code This is Final Report = [id number]) [id number] [facility] 22:32:30 Test Item Value Reference Range Interpretation Comments LVOT diameter (test code 2.01 cm = 1821804318) LVIDD (test code = 4.00 cm 4027722425) IVS (test code = 1.28 cm 6588952491) Interventricular Septum 1.28 cm Diastolic Thickness by 2D (test code = 8473391) LVPWD (test code = 1.28 cm 0864438734) PW (test code = 1.28 cm 0.6-1.5 0365473873) EF(Teich) (test code = 56.90 % 8943123405) LVIDS (test code = 2.80 cm 1390542581) FS (test code = 29 % 0674821850) EF - 2D (test code = 56.90 % 14864955) LA size (test code = 4.4 cm 0209070996) Ao root annulus (test 3.2 cm code = 7570344733) Ao root diam (test code = 3.20 cm 6076852874) Aortic root (test code = 3.2 cm 7468167004) TR Peak Javier (test code = 255.4 cm/s 1936051408) Triscuspid Valve mmHg Regurgitation Peak Gradient (test code = 0799107423) Pulmonic Regurgitant End 113.0 cm/s Max Velocity (test code = 1236699744) LAV(MOD-sp4) (test code = 59.60 mL 2104282155) E wave decelartion time 0.25 s (test code = 0011753369) MV stenosis pressure 1/2 74.6 ms time (test code = 4536772730) MV Peak E Javier (test code 90.2 cm/s = 7226820617) MV Peak A Javier (test code 111.0 cm/s = 2104458551) E/A ratio (test code = ratio 3480404980) MR max PG (test code = 78.40 mm[Hg] 0754705937) MR max javier (test code = 442.60 cm/s 9278119908) Mr max javier (test code = 442.6 m/s 7634484066) MV Prop V (test code = 32.70 cm/s 4878908058) MV E/e' septal (test code 8.5 cm/s = 5821287663) Tapse (test code = 1.76 cm 9186211278) LVOT stroke volume (test 72.80 cm3 code = 2856779219) LVOT peak javier (test code 107.6 cm/s = 9404623110) LVOT mn grad (test code = mmHg 8688062724) AV LVOT peak gradient mmHg (test code = 6035362647) LVOT peak VTI (test code 23.1 cm = 2233828646) LV V1 mean (test code = 71.40 cm/s 3549244513) Aortic valve mean 100.6 cm/s velocity (test code = 8625387543) Ao peak javier (test code = 132.3 cm/s 7098335392) Ao VTI (test code = 31.1 cm 5628174791) AV area by cont VTI (test 2.3 cm2 code = 3759184419) AV area peak javier (test 2.6 cm2 code = 9385148548) Ao max PG (test code = 7.00 mm[Hg] 3091476156) AV peak gradient (test mmHg code = 2909075317) AV valve area (test code 2.34 cm2 = 3370537266) AV mean gradient (test mmHg code = 8520991159) LA volume (BP) (test code 55.7 mL = 4992829494) LAV(MOD-sp2) (test code = 41.50 mL 0212555353) Radiology Study observation (narrative) (test code = 26708-5) ADDIS (test code = ADDIS) ?Left?Ventricle: Left ventricle is normal in size and function. Mildly increased wall thickness. Normal systolic function with a visually estimated EF of 55 - 60%. ?Right?Ventricle: Right ventricle is normal in size and function. Normal wall thickness. ?Mitral?Valve: Mitral valve is normal in structure and function. Mildly thickened leaflets. ?Tricuspid?Valve: Tricuspid valve is normal size and function. Insufficient regurgant jet to estimate RVSP. ?Aortic?Valve: Aortic valve is normal in structure and function. Mildly thickened cusps. Mildly calcified cusps. ?Pulmonic?Valve: Pulmonic valve is normal in structure and function. VitalsHeight Weight BSA (Calculated - sq m) BP Pulse 5' 6" (1.676 m) 216 lb (98 kg) 2.13 sq meters 128/50 69 [facility]TOTAL CHOLESTEROL, TRIGLYCERIDES, HDL)2021-04-07 13:07:05 Test Item Value Reference Range Interpretation Comments CHOL (test code = 107 mg/dL 120-200 L 8124487205) HDL (test code = 43 mg/dL >50 L 9845795278) HDLC RATIO (test code = See_Comment [Au tomated message] 8574654207) The system [employer] generated this result transmit theodora reference range : <=4.5. The refe rence range was not u sed to interpret th is result as normal/abnormal . TRIG (test code = 97 mg/dL 30-170 2257094308) LDL CHOL (test code = 45 mg/dL See_Comment [Auto mated message] 56447-8) The system [employer] generated this result transmit theodora reference range : <=160. The refe rence range was not u sed to interpret th is result as normal/abnormal . VLDL (test code = 19 mg/dL 5-60 4969212196) Lab Interpretation (test Abnormal code = 75000-5) [facility] [id number] 12:56:02 Test Item Value Reference Interpretation Comments Range TROPONIN I (test <0.012 See_Comment [Automated code = 4715226312) message] The system which generated this result transmitted reference range : <=0.034 ng/mL. The reference range was not used to interpret this result as normal/abnormal . ADDIS (test code = Reference (Normal) ADDIS) Range (defined by the 99th percentile reference limit): <= 0.034 ng/mL Note: Cardiac troponin begins to rise 3-4 hours after the onset of ischemia. Repeat in 4-6 hours if the sample was drawn within 3-4 hours of the onset of the symptom and found normal. Diagnosis of myocardial injury is made with acute changes in cTn concentrations with at least one serial sample above the 99th percentile upper reference limit (URL), taken together with the patient's clinical presentation. Biotin has been reported to cause a negative bias, interpret results relative to patient's use of biotin. Lab Interpretation Normal (test code = 30970-8) [facility] Metabolic Panel (NA, K, CL, CO2, GLUCOSE, BUN, CREATININE, CA)2021-04-07 12:55:16 Test Item Value Reference Range Interpretation Comments NA (test code = 140 mmol/L 135-145 2583620645) K (test code = 3.8 mmol/L 3.5-5.0 4398120137) CL (test code = 107 mmol/L 98-108 2875697076) CO2 TOTAL (test code = 27 mmol/L 23-31 6481328219) AGAP (test code = 2-16 5219122267) BUN (test code = 15 mg/dL 7-23 1190787346) GLUCOSE (test code = 91 mg/dL 70-110 4684722508) CREATININE (test code = 0.68 mg/dL 0.50-1.04 9299980585) CALCIUM (test code = 8.3 mg/dL 8.6-10.6 L 3416614488) eGFR (test code = mL/min/1.73m2 6483458410) ADDIS (test code = ADDIS) Association of Glomerular Filtration Rate (GFR) and Staging of Kidney Disease* + --+ --+ ------+| GFR (mL/min/1.73 m2) ?| With Kidney Damage ?| ?Without Kidney Damage+ --------+ --------+ +| ?>90 ?| ?Stage one ?| ? Normal ?+ ---+ ---+ -------+| ?60-89 ?| ?Stage two ?| ? Decreased GFR ? + --+ --+ ------+| ?30-59 ?| ?Stage three ?| ? Stage three ? + --+ --+ ------+| ?15-29 ?| ?Stage four ? | ? Stage four ?+ ---+ ---+ -------+| ?<15 (or dialysis) ? ?| ?Stage five ? | ? Stage five ?+ ---+ ---+ -------+ *Each stage assumes the associated GFR level has been in effect for at least three months. ?Stages 1 to 5, with or without kidney disease, indicate chronic kidney disease. Notes: Determination of stages one and two (with eGFR >59mL/min/1.73 m2) requires estimation of kidney damage for at least three months as defined by structural or functional abnormalities of the kidney, manifested by either:Pathological abnormalities or Markers of kidney damage (including abnormalities in the composition of the blood or urine or abnormalities in imaging tests). Lab Interpretation Abnormal (test code = 01611-3) [facility] with [id number] 12:29:38 Test Item Value Reference Range Interpretation Comments WBC (test code = See_Comment [Automated 6690-2) message] The sy stem which generated this result transmitted reference range : 4.30 - 11.10 10*3/?L. The reference range was not used to interpret this result as normal/abnormal . RBC (test code = See_Comment [Automated 789-8) message] The sy stem which generated this result transmitted reference range : 3.93 - 5.25 10*6/?L. The reference range was not used to interpret this result as normal/abnormal . HGB (test code = 12.1 g/dL 11.6-15.0 718-7) HCT (test code = 37.9 % 35.7-45.2 4544-3) MCV (test code = 85.7 fL 80.6-95.5 787-2) MCH (test code = 27.4 pg 25.9-32.8 785-6) MCHC (test code = 31.9 g/dL 31.6-35.1 786-4) RDW-SD (test code = 39.7 fL 39.0-49.9 53700-7) RDW-CV (test code = 12.8 % 12.0-15.5 788-0) PLT (test code = See_Comment L [Automated 777-3) message] The sy stem which generated this result transmitted reference range : 166 - 358 10*3/ ?L. The reference r neetu was not used to interpret this result as normal/abnormal . MPV (test code = 12.4 fL 9.5-12.9 77691-8) IPF % (test code = 8.5 % 1.3-7.7 H Platelet count 3631624511) measured by fluorescence method. NRBC/100 WBC (test See_Comment [Automat ed code = 5505690622) message] The system which generated this result transmitted reference range : 0.0 - 10.0 /100 WBCs. The refer ence range was not u sed to interpret th is result as normal/abnormal . NRBC x10^3 (test code <0.01 See_Comment [Auto mated = 6684917966) message] The s ystem which generated this result transmitted reference range : 10*3/?L. The reference range was not used to interpret this result as normal/abnormal . GRAN MAT (NEUT) % 37.7 % (test code = 770-8) IMM GRAN % (test code 0.30 % = 9997710275) LYMPH % (test code = 46.9 % 736-9) MONO % (test code = 12.6 % 5905-5) EOS % (test code = 2.0 % 713-8) BASO % (test code = 0.5 % 706-2) GRAN MAT x10^3(ANC) 2.45 10*3/uL 1.88-7.09 (test code = 5785454113) IMM GRAN x10^3 (test <0.03 0.00-0.06 code = 6064136031) LYMPH x10^3 (test code 3.05 10*3/uL 1.32-3.29 = 731-0) MONO x10^3 (test code 0.82 10*3/uL 0.33-0.92 = 742-7) EOS x10^3 (test code = 0.13 10*3/uL 0.03-0.39 711-2) BASO x10^3 (test code 0.03 10*3/uL 0.01-0.07 = 704-7) Lab Interpretation Abnormal (test code = 68267-1) [facility] [id number] 06:52:52 Test Item Value Reference Interpretation Comments Range TROPONIN I (test <0.012 See_Comment [Automated code = 5449903346) message] The system which generated this result transmitted reference range : <=0.034 ng/mL. The reference range was not used to interpret this result as normal/abnormal . ADDIS (test code = Reference (Normal) ADDIS) Range (defined by the 99th percentile reference limit): <= 0.034 ng/mL Note: Cardiac troponin begins to rise 3-4 hours after the onset of ischemia. Repeat in 4-6 hours if the sample was drawn within 3-4 hours of the onset of the symptom and found normal. Diagnosis of myocardial injury is made with acute changes in cTn concentrations with at least one serial sample above the 99th percentile upper reference limit (URL), taken together with the patient's clinical presentation. Biotin has been reported to cause a negative bias, interpret results relative to patient's use of biotin. Lab Interpretation Normal (test code = 80193-5) [facility] [id number] 01:41:00 Test Item Value Reference Interpretation Comments Range TROPONIN I (test <0.012 See_Comment [Automated code = 2905320087) message] The system which generated this result transmitted reference range : <=0.034 ng/mL. The reference range was not used to interpret this result as normal/abnormal . ADDIS (test code = Reference (Normal) ADDIS) Range (defined by the 99th percentile reference limit): <= 0.034 ng/mL Note: Cardiac troponin begins to rise 3-4 hours after the onset of ischemia. Repeat in 4-6 hours if the sample was drawn within 3-4 hours of the onset of the symptom and found normal. Diagnosis of myocardial injury is made with acute changes in cTn concentrations with at least one serial sample above the 99th percentile upper reference limit (URL), taken together with the patient's clinical presentation. Biotin has been reported to cause a negative bias, interpret results relative to patient's use of biotin. Lab Interpretation Normal (test code = 08848-7) [facility] [id number] 01:37:40 Test Item Value Reference Range Interpretation Comments NT-proBNP (test code 310 pg/mL See_Comment [Autom ated = 5167615459) message] The system which generated this result transmitted reference range : <=450. The reference range was not used to interpret this result as normal/abnormal . ADDIS (test code = ADDIS) Biotin has been reported to cause a negative bias, interpret results relative to patient's use of biotin. Lab Interpretation Normal (test code = 31513-2) [facility] METABOLIC PAN[facility] ([id number])2021-04-07 01:29:18 Test Item Value Reference Range Interpretation Comments NA (test code = 140 mmol/L 135-145 7007746794) K (test code = 4.6 mmol/L 3.5-5.0 1547329444) CL (test code = 106 mmol/L 98-108 5114726878) CO2 TOTAL (test code = 23 mmol/L 23-31 1171008479) AGAP (test code = 2-16 9637238304) BUN (test code = 18 mg/dL 7-23 9287128173) GLUCOSE (test code = 129 mg/dL 70-110 H 8798913030) CREATININE (test code = 0.71 mg/dL 0.50-1.04 9727182825) TOTAL BILI (test code = 0.6 mg/dL 0.1-1.6 9614558481) CALCIUM (test code = 8.7 mg/dL 8.6-10.6 9528900270) T PROTEIN (test code = 6.5 g/dL 6.3-8.2 3909804643) ALBUMIN (test code = 4.4 g/dL 3.5-5.0 7116097322) ALK PHOS (test code = 93 U/L 34-122 5300735761) ALTv (test code = 25 U/L 5-35 1742-6) AST(SGOT) (test code = 39 U/L 13-40 3541270816) eGFR (test code = mL/min/1.73m2 8321645504) ADDIS (test code = ADDIS) Association of Glomerular Filtration Rate (GFR) and Staging of Kidney Disease* + --+ --+ ------+| GFR (mL/min/1.73 m2) ?| With Kidney Damage ?| ?Without Kidney Damage+ --------+ --------+ +| ?>90 ?| ?Stage one ?| ? Normal ?+ ---+ ---+ -------+| ?60-89 ?| ?Stage two ?| ? Decreased GFR ? + --+ --+ ------+| ?30-59 ?| ?Stage three ?| ? Stage three ? + --+ --+ ------+| ?15-29 ?| ?Stage four ? | ? Stage four ?+ ---+ ---+ -------+| ?<15 (or dialysis) ? ?| ?Stage five ? | ? Stage five ?+ ---+ ---+ -------+ *Each stage assumes the associated GFR level has been in effect for at least three months. ?Stages 1 to 5, with or without kidney disease, indicate chronic kidney disease. Notes: Determination of stages one and two (with eGFR >59mL/min/1.73 m2) requires estimation of kidney damage for at least three months as defined by structural or functional abnormalities of the kidney, manifested by either:Pathological abnormalities or Markers of kidney damage (including abnormalities in the composition of the blood or urine or abnormalities in imaging tests). Lab Interpretation Abnormal (test code = 09741-6) [facility]PROTHROMBIN TIME / [id number] 01:21:57 Test Item Value Reference Range Interpretation Comments PROTIME PATIENT (test See_Comment [Auto mated message] code = 5964-2) The system wh ich generated this result transmitted ref erence range: 12.0 - 1 4.7 Seconds. The re ference range was not u sed to interpret this result as normal/abnor mal. INR (test code = 6301-6) Nor mal INR <1.1; Warfarin Therap eutic range 2.0 to 3. 0 or 2.5 to 3.5, dep ending upon the indica tions. Lab Interpretation (test Normal code = 98211-0) [facility] WITH [id number] 01:17:36 Test Item Value Reference Range Interpretation Comments WBC (test code = See_Comment [Automated 5307-2) message] The sy stem which generated this result transmitted reference range : 4.30 - 11.10 10*3/?L. The reference range was not used to interpret this result as normal/abnormal . RBC (test code = See_Comment [Automated 888-8) message] The sy stem which generated this result transmitted reference range : 3.93 - 5.25 10*6/?L. The reference range was not used to interpret this result as normal/abnormal . HGB (test code = 12.7 g/dL 11.6-15.0 718-7) HCT (test code = 40.5 % 35.7-45.2 4544-3) MCV (test code = 85.8 fL 80.6-95.5 787-2) MCH (test code = 26.9 pg 25.9-32.8 785-6) MCHC (test code = 31.4 g/dL 31.6-35.1 L 786-4) RDW-SD (test code = 40.0 fL 39.0-49.9 22294-3) RDW-CV (test code = 12.8 % 12.0-15.5 788-0) PLT (test code = See_Comment L [Automated 777-3) message] The sy stem which generated this result transmitted reference range : 166 - 358 10*3/ ?L. The reference r neetu was not used to interpret this result as normal/abnormal . MPV (test code = 11.8 fL 9.5-12.9 67542-5) IPF % (test code = 7.5 % 1.3-7.7 Platelet count 4248239282) measured by fluorescence method. NRBC/100 WBC (test See_Comment [Automat ed code = 4558577569) message] The system which generated this result transmitted reference range : 0.0 - 10.0 /100 WBCs. The refer ence range was not u sed to interpret th is result as normal/abnormal . NRBC x10^3 (test code <0.01 See_Comment [Auto mated = 2788781000) message] The s ystem which generated this result transmitted reference range : 10*3/?L. The reference range was not used to interpret this result as normal/abnormal . GRAN MAT (NEUT) % 45.7 % (test code = 770-8) IMM GRAN % (test code 0.40 % = 3701098834) LYMPH % (test code = 38.1 % 736-9) MONO % (test code = 13.0 % 5905-5) EOS % (test code = 2.1 % 713-8) BASO % (test code = 0.7 % 706-2) GRAN MAT x10^3(ANC) 3.04 10*3/uL 1.88-7.09 (test code = 7348866252) IMM GRAN x10^3 (test 0.03 10*3/uL 0.00-0.06 code = 8781441296) LYMPH x10^3 (test code 2.54 10*3/uL 1.32-3.29 = 731-0) MONO x10^3 (test code 0.87 10*3/uL 0.33-0.92 = 742-7) EOS x10^3 (test code = 0.14 10*3/uL 0.03-0.39 711-2) BASO x10^3 (test code 0.05 10*3/uL 0.01-0.07 = 704-7) Lab Interpretation Abnormal (test code = 86398-8) [facility] WITH [id number] 19:18:00 Test Item Value Reference Range Interpretation Comments WBC (test code = See_Comment [Automated 1390-2) message] The sy stem which generated this result transmitted reference range : 4.30 - 11.10 10*3/?L. The reference range was not used to interpret this result as normal/abnormal . RBC (test code = See_Comment L [Automated 789-8) message] The sy stem which generated this result transmitted reference range : 3.93 - 5.25 10*6/?L. The reference range was not used to interpret this result as normal/abnormal . HGB (test code = 10.9 g/dL 11.6-15 L 718-7) HCT (test code = 36.2 % 35.7-45.2 4544-3) MCV (test code = 92.3 fL 80.6-95.5 787-2) MCH (test code = 27.8 pg 25.9-32.8 785-6) MCHC (test code = 30.1 g/dL 31.6-35.1 L 786-4) RDW-SD (test code = 46.6 fL 39-49.9 04659-7) RDW-CV (test code = 13.7 % 12-15.5 788-0) PLT (test code = See_Comment L [Automated 777-3) message] The sy stem which generated this result transmitted reference range : 166 - 358 10*3/ ?L. The reference r neetu was not used to interpret this result as normal/abnormal . MPV (test code = 12.8 fL 9.5-12.9 33899-5) IPF % (test code = 7.3 % 1.3-7.7 6103098986) NRBC/100 WBC (test See_Comment [Automat ed code = 5480757810) message] The system which generated this result transmitted reference range : 0.0 - 10.0 /100 WBCs. The refer ence range was not u sed to interpret th is result as normal/abnormal . NRBC x10^3 (test code <0.01 See_Comment [Auto mated = 6983092082) message] The s ystem which generated this result transmitted reference range : 10*3/?L. The reference range was not used to interpret this result as normal/abnormal . GRAN MAT (NEUT) % 49.3 % (test code = 770-8) IMM GRAN % (test code 0.80 % = 1663890571) LYMPH % (test code = 36.8 % 736-9) MONO % (test code = 11.3 % 5905-5) EOS % (test code = 1.2 % 713-8) BASO % (test code = 0.6 % 706-2) GRAN MAT x10^3(ANC) 3.21 10*3/uL 1.88-7.09 (test code = 2845390874) IMM GRAN x10^3 (test 0.05 10*3/uL 0-0.06 code = 3394344347) LYMPH x10^3 (test code 2.40 10*3/uL 1.32-3.29 = 731-0) MONO x10^3 (test code 0.74 10*3/uL 0.33-0.92 = 742-7) EOS x10^3 (test code = 0.08 10*3/uL 0.03-0.39 711-2) BASO x10^3 (test code 0.04 10*3/uL 0.01-0.07 = 704-7) Lab Interpretation Abnormal (test code = 32581-8) [facility] WITH [id number] 16:29:00 Test Item Value Reference Range Interpretation Comments WBC (test code = See_Comment [Automated 6690-2) message] The sy stem which generated this result transmitted reference range : 4.30 - 11.10 10*3/?L. The reference range was not used to interpret this result as normal/abnormal . RBC (test code = See_Comment [Automated 789-8) message] The sy stem which generated this result transmitted reference range : 3.93 - 5.25 10*6/?L. The reference range was not used to interpret this result as normal/abnormal . HGB (test code = 11.6 g/dL 11.6-15 718-7) HCT (test code = 35.6 % 35.7-45.2 L 4544-3) MCV (test code = 86.8 fL 80.6-95.5 787-2) MCH (test code = 28.3 pg 25.9-32.8 785-6) MCHC (test code = 32.6 g/dL 31.6-35.1 786-4) RDW-SD (test code = 40.8 fL 39-49.9 31346-2) RDW-CV (test code = 12.9 % 12-15.5 788-0) PLT (test code = See_Comment L [Automated 777-3) message] The sy stem which generated this result transmitted reference range : 166 - 358 10*3/ ?L. The reference r neetu was not used to interpret this result as normal/abnormal . MPV (test code = 11.5 fL 9.5-12.9 06453-4) IPF % (test code = 5.6 % 1.3-7.7 Platelet count 0220099991) measured by fluorescence method. NRBC/100 WBC (test See_Comment [Automat ed code = 5045115980) message] The system which generated this result transmitted reference range : 0.0 - 10.0 /100 WBCs. The refer ence range was not u sed to interpret th is result as normal/abnormal . NRBC x10^3 (test code <0.01 See_Comment [Auto mated = 0683480319) message] The s ystem which generated this result transmitted reference range : 10*3/?L. The reference range was not used to interpret this result as normal/abnormal . GRAN MAT (NEUT) % 47.5 % (test code = 770-8) IMM GRAN % (test code 0.60 % = 8573847394) LYMPH % (test code = 37.1 % 736-9) MONO % (test code = 12.2 % 5905-5) EOS % (test code = 2.0 % 713-8) BASO % (test code = 0.6 % 706-2) GRAN MAT x10^3(ANC) 2.56 10*3/uL 1.88-7.09 (test code = 5242785297) IMM GRAN x10^3 (test 0.03 10*3/uL 0-0.06 code = 0409363818) LYMPH x10^3 (test code 2.00 10*3/uL 1.32-3.29 = 731-0) MONO x10^3 (test code 0.66 10*3/uL 0.33-0.92 = 742-7) EOS x10^3 (test code = 0.11 10*3/uL 0.03-0.39 711-2) BASO x10^3 (test code 0.03 10*3/uL 0.01-0.07 = 704-7) Lab Interpretation Abnormal (test code = 90118-3) [facility] METABOLIC PANEL (NA, K, CL, CO2, GLUCOSE, BUN, CREATININE, CA)2019-03-06 14:02:00 Test Item Value Reference Range Interpretation Comments NA (test code = 140 mmol/L 135-145 7932581814) K (test code = 3.9 mmol/L 3.5-5 1340049144) CL (test code = 108 mmol/L 98-108 1923133998) CO2 TOTAL (test code = 24 mmol/L 23-31 7130072642) AGAP (test code = 2-16 4372398567) BUN (test code = 12 mg/dL 7-23 0259311701) GLUCOSE (test code = 87 mg/dL 70-110 3445368659) CREATININE (test code = 0.71 mg/dL 0.5-1.04 4772159435) CALCIUM (test code = 8.5 mg/dL 8.6-10.6 L 4526043230) eGFR Calculation mL/min/1.73m2 (Non-) (test code = 1671492671) eGFR Calculation mL/min/1.73m2 () (test code = 2299533323) ADDIS (test code = ADDIS) Association of Glomerular Filtration Rate (GFR) and Staging of Kidney Disease* + --+ --+ ------+| GFR (mL/min/1.73 m2) ?| With Kidney Damage ?| ?Without Kidney Damage+ --------+ --------+ +| ?>90 ?| ?Stage one ?| ? Normal ?+ ---+ ---+ -------+| ?60-89 ?| ?Stage two ?| ? Decreased GFR ? + --+ --+ ------+| ?30-59 ?| ?Stage three ?| ? Stage three ? + --+ --+ ------+| ?15-29 ?| ?Stage four ? | ? Stage four ?+ ---+ ---+ -------+| ?<15 (or dialysis) ? ?| ?Stage five ? | ? Stage five ?+ ---+ ---+ -------+ *Each stage assumes the associated GFR level has been in effect for at least three months. ?Stages 1 to 5, with or without kidney disease, indicate chronic kidney disease. Notes: Determination of stages one and two (with eGFR >59mL/min/1.73 m2) requires estimation of kidney damage for at least three months as defined by structural or functional abnormalities of the kidney, manifested by either:Pathological abnormalities or Markers of kidney damage (including abnormalities in the composition of the blood or urine or abnormalities in imaging tests). Lab Interpretation Abnormal (test code = 21131-7) [id number]-[id number] 22:50:00 Test Item Value Reference Interpretation Comments Range D-DIMER (test code = See_Comment [Autom ated 7413385451) message] The system which generated this result transmitted reference range : <0.41 ?g/mL (FEU). The reference range was not used to interpret this result as normal/abnormal . ADDIS (test code = This test may be ADDIS) used in conjunction with a clinical pretest probability (PTP) assessment model to exclude venous thromboembolism (VTE) in patients suspected of deep venous thrombosis (DVT) and pulmonary embolism (PE) A D-Dimer value less than 0.50 ?g/ml (FEU) has a negative predicative value of 96 to 100% (95% CI)and 97 to 100% (95% CI) as an aid in the diagnosis of deep vein thrombosis (DVT) and pulmonary embolism when there is low or moderate pretest probability of PE or DVT. D-Dimer values are expressed in initial fibrinogen equivalent units (FEU)" The assay results should be used with other information, including the clinical context, in forming a diagnosis. Lab Interpretation Normal (test code = 94513-1) [facility]aPTT2020-01-[facility] 22:42:00 Test Item Value Reference Range Interpretation Comments APTT Patient (test See_Comment [Automat ed code = 3173-2) message] The system which generated this result transmitted reference range : 23 - 38 Seconds . The reference range was not used to interpr et this result as normal/abnormal . ADDIS (test code = ADDIS) The [facility] patient population mean normal value for aPTT is 30 seconds. Lab Interpretation Normal (test code = 37289-0) [facility]FIBRINOGEN2020-01-26 22:42:00 Test Item Value Reference Range Interpretation Comments Fibrinogen (test code = 2212305026) 483 mg/dL 214-470 H Lab Interpretation (test code = Abnormal 02821-0) [facility] SouthPROTHROMBIN TIME / [id number] 22:39:00 Test Item Value Reference Range Interpretation Comments PROTIME PATIENT (test See_Comment [Auto mated message] code = 5964-2) The system wh ich generated this result transmitted ref erence range: 12.0 - 1 4.7 Seconds. The re ference range was not u sed to interpret this result as normal/abnor mal. INR (test code = 6301-6) Nor mal INR <1.1; Warfarin Therap eutic range 2.0 to 3. 0 or 2.5 to 3.5, dep ending upon the indica tions. Lab Interpretation (test Normal code = 96621-9) [facility]LACTATE [id number] 22:03:00 Test Item Value Reference Range Interpretation Comments LDH (test code = 5364961534) 447 U/L 300-600 Lab Interpretation (test code = Normal 09621-7) [facility] SouthFERRITIN [id number] 19:57:00 Test Item Value Reference Range Interpretation Comments FERRITIN (test code = 126.0 ng/mL 11-264 8789951645) ADDIS (test code = ADDIS) Biotin has been reported to cause a negative bias, interpret results relative to patient's use of biotin. Lab Interpretation (test Normal code = 04306-2) [facility] SouthCREATINE [id number] 19:20:00 Test Item Value Reference Range Interpretation Comments CK (test code = 7484251468) 43 U/L 33-194 Lab Interpretation (test code = Normal 58209-2) [facility]VITAMIN B12, [id number] 19:10:00 Test Item Value Reference Range Interpretation Comments VIT B12 (test code = 288 pg/mL 240-930 1847762538) ADDIS (test code = ADDIS) Biotin has been reported to cause a positive bias, interpret results relative to patient's use of biotin. Lab Interpretation (test Normal code = 70392-6) [facility] SouthFOLATE2020-01-26 19:10:00 Test Item Value Reference Range Interpretation Comments FOLATE SER (test code = 15.3 ng/mL 3-20 1625820689) Lab Interpretation (test code = Normal 22870-1) [facility] SouthIRON [id number] 18:11:00 Test Item Value Reference Range Interpretation Comments IRON (test code = 7825956328) 35 ug/dL 50-160 L TIBC (test code = 2043356292) 272 ug/dL 250-410 % FE SAT (test code = 1747223982) 13 % 20-50 L Lab Interpretation (test code = Abnormal 06688-9) [facility]CBC WITH [id number] 12:21:00 Test Item Value Reference Range Interpretation Comments WBC (test code = See_Comment [Automated 1807-2) message] The sy stem which generated this result transmitted reference range : 4.30 - 11.10 10*3/?L. The reference range was not used to interpret this result as normal/abnormal . RBC (test code = See_Comment [Automated 482-8) message] The sy stem which generated this result transmitted reference range : 3.93 - 5.25 10*6/?L. The reference range was not used to interpret this result as normal/abnormal . HGB (test code = 10.8 g/dL 11.6-15 L 718-7) HCT (test code = 35.7 % 35.7-45.2 4544-3) MCV (test code = 89.5 fL 80.6-95.5 787-2) MCH (test code = 27.1 pg 25.9-32.8 785-6) MCHC (test code = 30.3 g/dL 31.6-35.1 L 786-4) RDW-SD (test code = 43.5 fL 39-49.9 31472-4) RDW-CV (test code = 13.1 % 12-15.5 788-0) PLT (test code = See_Comment L [Automated 777-3) message] The sy stem which generated this result transmitted reference range : 166 - 358 10*3/ ?L. The reference r neetu was not used to interpret this result as normal/abnormal . MPV (test code = 11.2 fL 9.5-12.9 10124-5) NRBC/100 WBC (test See_Comment [Automat ed code = 4198764557) message] The system which generated this result transmitted reference range : 0.0 - 10.0 /100 WBCs. The refer ence range was not u sed to interpret th is result as normal/abnormal . NRBC x10^3 (test code <0.01 See_Comment [Auto mated = 1459772586) message] The s ystem which generated this result transmitted reference range : 10*3/?L. The reference range was not used to interpret this result as normal/abnormal . GRAN MAT (NEUT) % 47.6 % (test code = 770-8) IMM GRAN % (test code 0.80 % = 1737768262) LYMPH % (test code = 38.6 % 736-9) MONO % (test code = 11.2 % 5905-5) EOS % (test code = 1.3 % 713-8) BASO % (test code = 0.5 % 706-2) GRAN MAT x10^3(ANC) 2.98 10*3/uL 1.88-7.09 (test code = 2226794266) IMM GRAN x10^3 (test 0.05 10*3/uL 0-0.06 code = 2639015056) LYMPH x10^3 (test code 2.41 10*3/uL 1.32-3.29 = 731-0) MONO x10^3 (test code 0.70 10*3/uL 0.33-0.92 = 742-7) EOS x10^3 (test code = 0.08 10*3/uL 0.03-0.39 711-2) BASO x10^3 (test code 0.03 10*3/uL 0.01-0.07 = 704-7) Lab Interpretation Abnormal (test code = 73645-8) [facility] METABOLIC PANEL (NA, K, CL, CO2, GLUCOSE, BUN, CREATININE, CA)2019-03-05 12:12:00 Test Item Value Reference Range Interpretation Comments NA (test code = 139 mmol/L 135-145 5026992916) K (test code = 3.7 mmol/L 3.5-5 7000665000) CL (test code = 110 mmol/L 98-108 H 4054619298) CO2 TOTAL (test code = 24 mmol/L 23-31 7064215906) AGAP (test code = 2-16 3265782624) BUN (test code = 13 mg/dL 7-23 8404842025) GLUCOSE (test code = 95 mg/dL 70-110 9417019014) CREATININE (test code = 0.74 mg/dL 0.5-1.04 0395501453) CALCIUM (test code = 7.9 mg/dL 8.6-10.6 L 5060663382) eGFR Calculation mL/min/1.73m2 (Non-) (test code = 0610909810) eGFR Calculation mL/min/1.73m2 () (test code = 2489868493) ADDIS (test code = ADDIS) Association of Glomerular Filtration Rate (GFR) and Staging of Kidney Disease* + --+ --+ ------+| GFR (mL/min/1.73 m2) ?| With Kidney Damage ?| ?Without Kidney Damage+ --------+ --------+ +| ?>90 ?| ?Stage one ?| ? Normal ?+ ---+ ---+ -------+| ?60-89 ?| ?Stage two ?| ? Decreased GFR ? + --+ --+ ------+| ?30-59 ?| ?Stage three ?| ? Stage three ? + --+ --+ ------+| ?15-29 ?| ?Stage four ? | ? Stage four ?+ ---+ ---+ -------+| ?<15 (or dialysis) ? ?| ?Stage five ? | ? Stage five ?+ ---+ ---+ -------+ *Each stage assumes the associated GFR level has been in effect for at least three months. ?Stages 1 to 5, with or without kidney disease, indicate chronic kidney disease. Notes: Determination of stages one and two (with eGFR >59mL/min/1.73 m2) requires estimation of kidney damage for at least three months as defined by structural or functional abnormalities of the kidney, manifested by either:Pathological abnormalities or Markers of kidney damage (including abnormalities in the composition of the blood or urine or abnormalities in imaging tests). Lab Interpretation Abnormal (test code = 96900-7) [facility] [id number] 02:31:00 Test Item Value Reference Range Interpretation Comments FREE T3 (test code = 6151622464) 1.89 pg/mL 2.77-5.27 L Lab Interpretation (test code = Abnormal 15871-1) [facility] [id number] 01:16:00 Test Item Value Reference Range Interpretation Comments FREE T4 (test code = See_Comment [Autom ated message] 3346873181) The system [employer] generated this result transmitted ref erence range: 0.78 - 2 .20 ng/dL:. The ref erence range was not u sed to interpret this result as normal/abnor mal. Lab Interpretation (test Normal code = 16472-4) [facility]THYROID STIMULATING [id number] 23:31:00 Test Item Value Reference Range Interpretation Comments TSH (test code = See_Comment H Biotin has been 4106297729) reported to cau se a negative bias, interpret resul ts relative to pat iebeulah's use of biotin. [Automated mess age] The system [employer] generated this result transmitted ref erence range: 0.45 - 4 .70 mIU/L. The refe rence range was not u sed to interpret this result as normal/abnor mal. Lab Interpretation (test Abnormal code = 64405-4) [facility] SouthPROCALCITONIN2020-01-25 17:19:00 Test Item Value Reference Range Interpretation Comments Procalcitonin (test 0.17 ng/mL <0.07 H code = 7042765948) ADDIS (test code = ADDIS) INTERPRETATION OF PROCALCITONIN RESULTS IN ADULTS >= 18 YEARS OF AGE Initiation and discontinuation of antibiotics on patients with suspected or confirmed Lower Respiratory Tract Infection in Adults >= 18 years of age. + +-------- --------+ + -----+|Procalcitonin |Interpretation ?|Antibiotic ? ? |Considerations ? |ng/mL ? | ?|recommendation | ? + +-------- --------+ + -----+| <0.1 ? | Bacterial ? ? ?| Strongly ? ? ?| ? | ?| infection very | discouraged ? | Overruling: ? | ?| unlikely ? ? ? | ? | ? Clinically unstable ? ? ? + +-------- --------+ + ? High risk for adverse ? ? | <0.25 ?| Bacterial ? ? ?| Discouraged ? | ? outcome ? | ?| infection ? ? ?| ? | ? SEE IMPORTANT NOTE ?| ?| unlikely ? ? ? | ? | ? + +-------- --------+ + -----+| >=0.25 ? ? ? | Bacterial ? ? ?| Encouraged ? ?| ? | ?| infection ? ? ?| ? | ? | ?| likely ? | ? | Consider treatment failure ?+ +------- ---------+ -+ if levels does not decrease | >0.5 ? | Bacterial ? ? ?| Strongly ? ? ?| appropriately ? | ?| infection very | encouraged ? ?| ? | ?| likely ? | ? | ? + +-------- --------+ + -----+ Discontinuation of antibiotics in high-acuity patients with suspected or confirmed sepsis in Adults >= 18 years of age. + +-------- --------+ + -----+|Procalcitonin |Interpretation ?|Antibiotic ? ? |Considerations ? |ng/mL ? | ?|recommendation | ? + +-------- --------+ + -----+| <0.25 ?| Bacterial ? ? ?| Strongly ? ? ?| ? | ?| infection very | discouraged ? | Overruling: ? | ?| unlikely ? ? ? | ? | ? Clinically unstable ? ? ? + +-------- --------+ + ? High risk for adverse ? ? | <0.5 or drop | Bacterial ? ? ?| Discouraged ? | ? outcome ? | >80% from ? ?| infection ? ? ?| ? | ? SEE IMPORTANT NOTE ?| highest PCT ?| unlikely ? ? ? | ? | ? | level ?| ?| ? | ? + +-------- --------+ + -----+| >=0.5 ?| Bacterial ? ? ?| Encouraged ? ?| ? | ?| infection ? ? ?| ? | ? | ?| likely ? | ? | Consider treatment failure ?+ +------- ---------+ -+ if levels does not decrease | >1.0 ? | Bacterial ? ? ?| Strongly ? ? ?| appropriately ? | ?| infection very | encouraged ? ?| ? | ?| likely ? | ? | ? + +-------- --------+ + -----+ Percentage of drop of Procalcitonin calculation for Discontinuation of antibiotics in high-acuity patients with suspected or confirmed sepsis in Adults >= 18 years of age. ? Procalcitonin highest{}-Procalcitonin current{}Delta Procalcitonin = x100% ? Procalcitonin current {} IMPORTANT NOTE: Procalcitonin may be elevated without bacterial infection by physiologic stress related to trauma, mcclellan, chronic dialysis, metastatic cancer, surgery in the past seven days, malaria, some fungal infections, and some forms of vasculitis. The interpretation algorithm may not apply to patients with immunosuppression (equivalent of >10 mg of prednisone daily), HIV with CD4 cell count < 350 cells/mm3, active malignancy on systemic chemotherapy, solid organ transplant or hematopoietic stem cell transplantation, or hospital acquired pneumonia. Additionally, some clinical trials of procalcitonin have excluded patients with shock requiring vasopressor use, acute respiratory failure requiring mechanical ventilation, or those with known lung abscess/empyema. For further information please refer to:[email or web address] Lab Interpretation Abnormal (test code = 56751-6) [facility] (NA, K, CL, CO2, GLUCOSE, BUN, CREATININE, CA)2019-03-04 13:36:00 Test Item Value Reference Range Interpretation Comments NA (test code = 141 mmol/L 135-145 7515239617) K (test code = 4.1 mmol/L 3.5-5 0761980158) CL (test code = 106 mmol/L 98-108 4799156687) CO2 TOTAL (test code = 23 mmol/L 23-31 1283304246) AGAP (test code = 2-16 8377270754) BUN (test code = 20 mg/dL 7-23 6464671996) GLUCOSE (test code = 90 mg/dL 70-110 6402731217) CREATININE (test code = 0.77 mg/dL 0.5-1.04 5244848782) CALCIUM (test code = 8.5 mg/dL 8.6-10.6 L 1077607290) eGFR Calculation mL/min/1.73m2 (Non-) (test code = 1380032322) eGFR Calculation mL/min/1.73m2 () (test code = 4184126956) ADDIS (test code = ADDIS) Association of Glomerular Filtration Rate (GFR) and Staging of Kidney Disease* + --+ --+ ------+| GFR (mL/min/1.73 m2) ?| With Kidney Damage ?| ?Without Kidney Damage+ --------+ --------+ +| ?>90 ?| ?Stage one ?| ? Normal ?+ ---+ ---+ -------+| ?60-89 ?| ?Stage two ?| ? Decreased GFR ? + --+ --+ ------+| ?30-59 ?| ?Stage three ?| ? Stage three ? + --+ --+ ------+| ?15-29 ?| ?Stage four ? | ? Stage four ?+ ---+ ---+ -------+| ?<15 (or dialysis) ? ?| ?Stage five ? | ? Stage five ?+ ---+ ---+ -------+ *Each stage assumes the associated GFR level has been in effect for at least three months. ?Stages 1 to 5, with or without kidney disease, indicate chronic kidney disease. Notes: Determination of stages one and two (with eGFR >59mL/min/1.73 m2) requires estimation of kidney damage for at least three months as defined by structural or functional abnormalities of the kidney, manifested by either:Pathological abnormalities or Markers of kidney damage (including abnormalities in the composition of the blood or urine or abnormalities in imaging tests). Lab Interpretation Abnormal (test code = 09465-4) [facility] WITH [id number] 12:33:00 Test Item Value Reference Range Interpretation Comments WBC (test code = See_Comment [Automated 9436-2) message] The sy stem which generated this result transmitted reference range : 4.30 - 11.10 10*3/?L. The reference range was not used to interpret this result as normal/abnormal . RBC (test code = See_Comment [Automated 867-8) message] The sy stem which generated this result transmitted reference range : 3.93 - 5.25 10*6/?L. The reference range was not used to interpret this result as normal/abnormal . HGB (test code = 12.5 g/dL 11.6-15 718-7) HCT (test code = 39.6 % 35.7-45.2 4544-3) MCV (test code = 89.2 fL 80.6-95.5 787-2) MCH (test code = 28.2 pg 25.9-32.8 785-6) MCHC (test code = 31.6 g/dL 31.6-35.1 786-4) RDW-SD (test code = 43.0 fL 39-49.9 83952-5) RDW-CV (test code = 13.2 % 12-15.5 788-0) PLT (test code = See_Comment L [Automated 777-3) message] The sy stem which generated this result transmitted reference range : 166 - 358 10*3/ ?L. The reference r neetu was not used to interpret this result as normal/abnormal . MPV (test code = 11.7 fL 9.5-12.9 33920-1) NRBC/100 WBC (test See_Comment [Automat ed code = 3379144752) message] The system which generated this result transmitted reference range : 0.0 - 10.0 /100 WBCs. The refer ence range was not u sed to interpret th is result as normal/abnormal . NRBC x10^3 (test code <0.01 See_Comment [Auto mated = 9508975591) message] The s ystem which generated this result transmitted reference range : 10*3/?L. The reference range was not used to interpret this result as normal/abnormal . GRAN MAT (NEUT) % 69.5 % (test code = 770-8) IMM GRAN % (test code 0.40 % = 9967170564) LYMPH % (test code = 21.1 % 736-9) MONO % (test code = 8.3 % 5905-5) EOS % (test code = 0.4 % 713-8) BASO % (test code = 0.3 % 706-2) GRAN MAT x10^3(ANC) 6.40 10*3/uL 1.88-7.09 (test code = 1562802766) IMM GRAN x10^3 (test 0.04 10*3/uL 0-0.06 code = 3642444466) LYMPH x10^3 (test code 1.95 10*3/uL 1.32-3.29 = 731-0) MONO x10^3 (test code 0.77 10*3/uL 0.33-0.92 = 742-7) EOS x10^3 (test code = 0.04 10*3/uL 0.03-0.39 711-2) BASO x10^3 (test code 0.03 10*3/uL 0.01-0.07 = 704-7) Lab Interpretation Abnormal (test code = 57957-2) [facility] A[facility]OMEN PELVIS W WO [id number] 08:05:49 1. No acute inflammatory or obstructive process.2. Sigmoid diverticulosis.3. Status post hysterectomy and cholecystectomy.4. Small hiatal hernia RL: [id number] AFC: [id number] End of report Electronically signedby Nasim Newton at 03/04/2019 2:05 AMORDERING CLINICIAN: FRANKY DALAL TECHNIQUE: Multidetector helical scanning of the abdomen and pelvis wasperformed with and without IV contrast. The lack of contrast limitsevaluation of the solid organs, vasculature and GI tract. Coronal andsagittal reformations were obtained. CT scan was performed according to the ALARA (as low as reasonablyachievable) principal. INDICATION: Abdominal pain COMPARISON:None DISCUSSION:There is mild sigmoid diverticulosis without diverticulitis. There is noevidence of active colonic or small bowel inflammation or obstruction. ?Theappendix is not identified but there are no findings to suggestappendicitis. There is atelectasis inboth lung bases. There is moderate cardiomegaly. There are benign hepatic cysts. Otherwise the liver, adrenal glands,kidneys, spleen and pancreas are normal. There is a small hiatal hernia.The gallbladder has been removed. The uterus has been surgically removed. There is no pelvic mass or freefluid. The bladder and adnexal regions are unremarkable. There is moderate aortoiliac atherosclerosis there is no aneurysm. There are no acute or suspicious osseous abnormalities. ? [facility], Radiant Results Inft User - 03/04/2019 2:06 AM CSTORDERING CLINICIAN: FRANKY HALLNIQUE: Multidetector helical scanning of the abdomen and pelvis wasperformed with and without IV contrast. The lack of contrast limitsevaluation of the solid organs, vasculature and GI tract. Coronal andsagittal reformations were obtained.CT scan was performed according to the ALARA (as low as reasonablyachievable) principal.INDICATION: Abdominal painCOMPARISON:NoneDISCUSSION:There is mild sigmoid diverticulosis without diverticulitis. There is noevidence of active colonic or small bowel inflammation or obstruction. Theappendix is not identified but there are no findings to suggestappendicitis.There is atelectasis in both lung bases. There is moderate cardiomegaly.There are benign hepatic cysts. Otherwise the liver, adrenal glands,kidneys, spleen and pancreas are normal. There is a small hiatal hernia.The gallbladder has been removed.The uterus has been surgically removed. There is no pelvic mass or freefluid. The bladder and adnexal regions are unremarkable.There is moderate aortoiliac atherosclerosis there is no aneurysm.There are no acute or suspicious osseous abnormalities. IMPRESSION1. No acute inflammatory or obstructive process.2. Sigmoid diverticulosis.3. Status post hysterectomy and cholecystectomy.4. Small hiatal herniaRL: [id number]: [id number] of report [facility] (39281) (ALB,T.PRO,BILI T,BU/BC,ALT,AST,ALK PHOS)2019-03-04 06:58:00 Test Item Value Reference Range Interpretation Comments TOTAL BILI (test code = 2443853081) 1.4 mg/dL 0.1-1.1 H BILI UNCON (test code = 5001296707) 1.0 mg/dL 0.1-1.1 BILI CONJ (test code = 8328072196) 0.0 mg/dL 0-0.3 T PROTEIN (test code = 7359297047) 8.0 g/dL 6.3-8.2 ALBUMIN (test code = 3834518427) 4.5 g/dL 3.5-5 ALK PHOS (test code = 3000402980) 71 U/L 34-122 ALTv (test code = 1742-6) 37 U/L 5-35 H AST(SGOT) (test code = 6153379287) 91 U/L 13-40 H Lab Interpretation (test code = Abnormal 71531-9) [facility]MAGNESIUM2020-01-25 06:57:00 Test Item Value Reference Range Interpretation Comments MAGNESIUM (test code = 6577662794) 1.8 mg/dL 1.7-2.4 Lab Interpretation (test code = Normal 45866-9) [facility],CLC OR L[facility] ONLY - INFLUENZA A & B DIRECT [id number] 03:21:00 Test Item Value Reference Range Interpretation Comments Influenza A (test code = 83766-8) Negative Negative Influenza B (test code = 09844-9) Negative Negative Lab Interpretation (test code = Normal 45792-1) [facility] WITH [id number] 03:19:00 Test Item Value Reference Range Interpretation Comments WBC (test code = See_Comment [Automated 6690-2) message] The system which generated this result transmit theodora reference range : 4.30 - 11.10 10*3/?L. The reference range was not used to interpret this result as normal/abnormal . RBC (test code = See_Comment [Automated 789-8) message] The system which generated this result transmit theodora reference range : 3.93 - 5.25 10*6/?L. The reference range was not used to interpret this result as normal/abnormal . HGB (test code = 12.7 g/dL 11.6-15 718-7) HCT (test code = 40.0 % 35.7-45.2 4544-3) MCV (test code = 85.8 fL 80.6-95.5 787-2) MCH (test code = 27.3 pg 25.9-32.8 785-6) MCHC (test code = 31.8 g/dL 31.6-35.1 786-4) RDW-SD (test code = 40.7 fL 39-49.9 45333-0) RDW-CV (test code = 13.1 % 12-15.5 788-0) PLT (test code = See_Comment L [Automated 777-3) message] The system which generated this result transmit theodora reference range : 166 - 358 10*3/ ?L. The reference range was not u sed to interpret th is result as normal/abnormal . MPV (test code = 11.5 fL 9.5-12.9 15860-2) IPF % (test code = 6.2 % 1.3-7.7 Platelet count 9746636693) measured by fluorescence method. NRBC/100 WBC (test See_Comment [Automat ed code = 0087950651) message] The system which generated this result transmit theodora reference range : 0.0 - 10.0 /100 WBCs. The reference range was not used to interpret this result as normal/abnormal . NRBC x10^3 (test code <0.01 See_Comment [Auto mated = 6369977395) message] The system which generated this result transmit theodora reference range : 10*3/?L. The reference range was not used to interpret this result as normal/abnormal . GRAN MAT (NEUT) % 78.1 % (test code = 770-8) IMM GRAN % (test code 0.40 % = 5417233596) LYMPH % (test code = 12.1 % 736-9) MONO % (test code = 9.0 % 5905-5) EOS % (test code = 0.0 % 713-8) BASO % (test code = 0.4 % 706-2) GRAN MAT x10^3(ANC) 8.03 10*3/uL 1.88-7.09 H (test code = 8790898468) IMM GRAN x10^3 (test 0.04 10*3/uL 0-0.06 code = 4876177720) LYMPH x10^3 (test 1.24 10*3/uL 1.32-3.29 L code = 731-0) MONO x10^3 (test code 0.93 10*3/uL 0.33-0.92 H = 742-7) EOS x10^3 (test code <0.03 0.03-0.39 L = 711-2) BASO x10^3 (test code 0.04 10*3/uL 0.01-0.07 = 704-7) ADDIS (test code = ADDIS) Decreased platelets Lab Interpretation Abnormal (test code = 01609-5) [facility] 1 [id number] 02:43:09Mild atelectasis or infiltrate in both medial lung bases. RL: 6200 END OF REPORT Ordering Physician: ELIZA BOWIE Clinical Indication: cough Additional Clinical Information: Comparison: None Technique: Portable chest obtained at 2049 Findings: There is mild cardiomegaly. Left hemidiaphragm is obscured. Thereis a likely infiltrate or atelectasis in the left base and right base. [facility], Radiant Results Inft User - 03/03/2019 8:52 PM CSTOrdering Physician: ELIZA MONAHANSClinical Indication: cough Additional Clinical Information:Comparison: NoneTechnique: Portable chest obtained at 2049 hoursFindings: There is mild cardiomegaly. Left hemidiaphragm is obscured. Thereis a likely infiltrate or atelectasis in the left base and right base.IMPRESSIONMild atelectasis or infiltrate in both medial lung bases.RL: 6200END OF REPORT [facility] (NA, K, CL, CO2, GLUCOSE, BUN, CREATININE, CA)2019-03-04 02:38:00 Test Item Value Reference Range Interpretation Comments NA (test code = 136 mmol/L 135-145 6007157430) K (test code = 4.5 mmol/L 3.5-5 0712226371) CL (test code = 101 mmol/L 98-108 4229229333) CO2 TOTAL (test code = 26 mmol/L 23-31 8963853037) AGAP (test code = 2-16 8371617619) BUN (test code = 26 mg/dL 7-23 H 4084874090) GLUCOSE (test code = 138 mg/dL 70-110 H 0157101630) CREATININE (test code = 0.91 mg/dL 0.5-1.04 2375269376) CALCIUM (test code = 9.5 mg/dL 8.6-10.6 5293595724) eGFR Calculation mL/min/1.73m2 (Non-) (test code = 8016805377) eGFR Calculation mL/min/1.73m2 () (test code = 0304994844) ADDIS (test code = ADDIS) Association of Glomerular Filtration Rate (GFR) and Staging of Kidney Disease* + --+ --+ ------+| GFR (mL/min/1.73 m2) ?| With Kidney Damage ?| ?Without Kidney Damage+ --------+ --------+ +| ?>90 ?| ?Stage one ?| ? Normal ?+ ---+ ---+ -------+| ?60-89 ?| ?Stage two ?| ? Decreased GFR ? + --+ --+ ------+| ?30-59 ?| ?Stage three ?| ? Stage three ? + --+ --+ ------+| ?15-29 ?| ?Stage four ? | ? Stage four ?+ ---+ ---+ -------+| ?<15 (or dialysis) ? ?| ?Stage five ? | ? Stage five ?+ ---+ ---+ -------+ *Each stage assumes the associated GFR level has been in effect for at least three months. ?Stages 1 to 5, with or without kidney disease, indicate chronic kidney disease. Notes: Determination of stages one and two (with eGFR >59mL/min/1.73 m2) requires estimation of kidney damage for at least three months as defined by structural or functional abnormalities of the kidney, manifested by either:Pathological abnormalities or Markers of kidney damage (including abnormalities in the composition of the blood or urine or abnormalities in imaging tests). Lab Interpretation Abnormal (test code = 97101-0) [facility] Whole [id number] 02:17:00 Test Item Value Reference Range Interpretation Comments LACTIC ACID (test code = 1.21 mmol/L 0.5-2.2 3458608767) Lab Interpretation (test code = Normal 12534-0) [facility]2020-01-24 21:05:00 Test Item Value Reference Range Interpretation Comments APPEARANCE (test code = Hazy Clear A 6370236632) COLOR (test code = Sabina Yellow A 3086977208) PH (test code = 4.8-8.0 4808721429) SP GRAVITY (test code = 1.003-1.030 1932643762) GLU U QUAL (test code = Normal Normal 9590833072) BLOOD (test code = 1+ Negative A 3358039190) KETONES (test code = Negative Negative 5615267464) PROTEIN (test code = Negative Negative 2887-8) UROBILIN (test code = Normal Normal 3651267573) BILIRUBIN (test code = Negative Negative 2428020528) NITRITE (test code = Positive Negative A 7187794483) LEUK EMPERATRIZ (test code = 250/uL Negative A 0716817370) RBC/HPF (test code = See_Comment [Autom ated message] 0593661705) The system Arboribus generated this result transmitted ref erence range: 0 - 3 HP F. The reference range was not used to int erpret this result as normal/abnormal . WBC/HPF (test code = See_Comment H [Autom ated message] 4005640889) The system [employer] generated this result transmitted ref erence range: 0 - 5 HP F. The reference range was not used to int erpret this result as normal/abnormal . BACTERIA (test code = Few Negative A 8229976222) SQ EPITH (test code = <1 See_Comment [Auto mated message] 3751217628) The system [employer] generated this result transmitted ref erence range: <=2 HPF. The reference range was not used to int erpret this result as normal/abnormal . Lab Interpretation (test Abnormal code = 32505-3) [facility]2020-[facility] 21:05:00 Test Item Value Reference Range Interpretation Comments APPEARANCE (test code = Hazy Clear A 5862144584) COLOR (test code = Sabina Yellow A 4628322694) PH (test code = 4.8-8.0 4142351122) SP GRAVITY (test code = 1.003-1.030 7239352438) GLU U QUAL (test code = Normal Normal 4321644225) BLOOD (test code = 1+ Negative A 2964803396) KETONES (test code = Negative Negative 2956394806) PROTEIN (test code = Negative Negative 2887-8) UROBILIN (test code = Normal Normal 6434017359) BILIRUBIN (test code = Negative Negative 2725029101) NITRITE (test code = Positive Negative A 6748134090) LEUK EMPERATRIZ (test code = 250/uL Negative A 7466441648) RBC/HPF (test code = See_Comment [Autom ated message] 8008068793) The system [employer] generated this result transmitted ref erence range: 0 - 3 HP F. The reference range was not used to int erpret this result as normal/abnormal . WBC/HPF (test code = See_Comment H [Autom ated message] 1914739858) The system [employer] generated this result transmitted ref erence range: 0 - 5 HP F. The reference range was not used to int erpret this result as normal/abnormal . BACTERIA (test code = Few Negative A 9597472883) SQ EPITH (test code = <1 See_Comment [Auto mated message] 4416745033) The system Ar[employer] generated this result transmitted ref erence range: <=2 HPF. The reference range was not used to int erpret this result as normal/abnormal . Lab Interpretation (test Abnormal code = 29773-3) [facility]. METABOLIC PANEL (23557)2018-09-27 16:33:00 Test Item Value Reference Range Interpretation Comments NA (test code = 142 mmol/L 135-145 0671191242) K (test code = 4.4 mmol/L 3.5-5 0443644555) CL (test code = 108 mmol/L 98-108 9194387209) CO2 TOTAL (test code = 25 mmol/L 23-31 3624108475) AGAP (test code = 2-16 4320906431) BUN (test code = 18 mg/dL 7-23 2103817049) GLUCOSE (test code = 87 mg/dL 70-110 8959912418) CREATININE (test code 0.73 mg/dL 0.5-1.04 = 1838017079) TOTAL BILI (test code 0.5 mg/dL 0.1-1.1 = 7697231957) CALCIUM (test code = 9.4 mg/dL 8.6-10.6 0431051439) T PROTEIN (test code = 7.0 g/dL 6.3-8.2 8153903687) ALBUMIN (test code = 4.4 g/dL 3.5-5 0698048058) ALK PHOS (test code = 71 U/L 34-122 5921346347) ALT(SGPT) (test code = 24 U/L 9-51 5858942949) AST(SGOT) (test code = 21 U/L 13-40 0840264716) eGFR Calculation mL/min/1.73m2 (Non-) (test code = 6561688471) eGFR Calculation mL/min/1.73m2 () (test code = 0321977978) ADDIS (test code = ADDIS) Association of Glomerular Filtration Rate (GFR) and Staging of Kidney Disease*+ ---------+ --------+ +| GFR (mL/min/1.73 m2)?| With Kidney Damage?|?Without Kidney Damage+ -------+ ------+ ---------+|?>90?|?Stage one?|? Normal?+ --------+ -------+ +|?60-89?|?St age two?|? Decreased GFR? + -+ + ---+|?30-59?|?Stage three?|? Stage three? + -+ + ---+|?15-29?|?Stage four? |? Stage four?+ ------+ -----+ --------+|?<15 (or dialysis)?|?Stage five?? |? Stage five?+ ------+ -----+ --------+*Each stage assumes the associated GFR level has been in effect for at least three months.?Stages 1 to 5, with or without kidney disease, indicate chronic kidney disease.Notes: Determination of stages one and two (with eGFR >59mL/min/1.73 m2) requires estimation of kidney damage for at least three months as defined by structural or functional abnormalities of the kidney, manifested by either:Pathological abnormalities or Markers of kidney damage (including abnormalities in the composition of the blood or urine or abnormalities in imaging tests). [facility] WITH [id number] 15:38:00 Test Item Value Reference Range Interpretation Comments WBC (test code = See_Comment [Automated message] 6690-2) The system Ar[employer] generated this result transmitted ref erence range: 4.30 - 1 1.10 10*3/?L. The re ference range was not u sed to interpret this result as normal/abnor mal. RBC (test code = See_Comment [Automated message] 789-8) The system [employer] generated this result transmitted ref erence range: 3.93 - 5 .25 10*6/?L. The re ference range was not u sed to interpret this result as normal/abnor mal. HGB (test code = 12.9 g/dL 11.6-15 718-7) HCT (test code = 40.4 % 35.7-45.2 4544-3) MCV (test code = 86.7 fL 80.6-95.5 787-2) MCH (test code = 27.7 pg 25.9-32.8 785-6) MCHC (test code = 31.9 g/dL 31.6-35.1 786-4) RDW-SD (test code 41.8 fL 39-49.9 = 79279-6) RDW-CV (test code 13.2 % 12-15.5 = 788-0) PLT (test code = See_Comment [Automated message] 777-3) The system whic h generated this result transmitted ref erence range: 166 - 35 8 10*3/?L. The re ference range was not u sed to interpret this result as normal/abnor mal. MPV (test code = 10.8 fL 9.5-12.9 24698-9) NRBC/100 WBC (test See_Comment [Automat ed message] code = 0075228913) The syste m which generated this result transmitted ref erence range: 0.0 - 10 .0 /100 WBCs. The refer ence range was not u sed to interpret this result as normal/abnor mal. NRBC x10^3 (test <0.01 See_Comment [Automated message] code = 9867229292) The syste m which generated this result transmitted ref erence range: 10*3/?L. The reference range was not used to interpr et this result as normal/abnormal . GRAN MAT (NEUT) % 42.3 % (test code = 770-8) IMM GRAN % (test 0.60 % code = 6148704988) LYMPH % (test code 43.3 % = 736-9) MONO % (test code 11.2 % = 5905-5) EOS % (test code = 2.0 % 713-8) BASO % (test code 0.6 % = 706-2) GRAN MAT 2.30 10*3/uL 1.88-7.09 x10^3(ANC) (test code = 0684579082) IMM GRAN x10^3 0.03 10*3/uL 0-0.06 (test code = 5656737551) LYMPH x10^3 (test 2.35 10*3/uL 1.32-3.29 code = 731-0) MONO x10^3 (test 0.61 10*3/uL 0.33-0.92 code = 742-7) EOS x10^3 (test 0.11 10*3/uL 0.03-0.39 code = 711-2) BASO x10^3 (test 0.03 10*3/uL 0.01-0.07 code = 704-7) [facility]
[2022-06-24 12:27] LABS: Absolute Lymphocytes (CBC) 2.6 K/uL (0.7-4.9); Hematocrit 37.5 % (36.0-45.0); Lymphocytes % 37.9 % (15.3-44.8); MCV 84.5 fL (80-100); MPV 9.7 fL (7.6-11.3); RBC Red Blood Cell Count 4.43 M/uL (3.86-4.86)
[2022-06-24 12:40] LABS: Potassium 3.7 mEq/L (3.5-5.1)
[2022-06-24] MEDS ORDERED: PNEUMOCOCCAL VACCINE 0.5 ML IMVAC ONE (13:00)
[2022-06-24 13:10] LABS: Specific Gravity 1.028 (1.005-1.030); Urine Bacteria None Seen /HPF (<20); Urine Bilirubin NEGATIVE (Negative); Urine Blood Negative (Negative); Urine Clarity Clear (Clear); Urine Color Yellow (Yellow); Urine Glucose NEGATIVE (Negative); Urine Mucus Slight /HPF (None Seen); Urine Protein NEGATIVE (Negative); Urine RBC <5 /HPF (None Seen); Urine Urobilinogen Normal (Normal)
[2022-06-24] MEDS: CEFEPIME 1 GM in NA CHLORIDE 0.9% 100 ML IV SCH ×2 (13:15→20:37)
[2022-06-24] MEDS ORDERED: POTASSIUM 25 MEQ EFFERV TAB PO ONE (18:09)
[2022-06-24] MEDS: Mupirocin NASAL 2 APPL/1 GM TUBE NAS SCH (20:38)
[2022-06-24] MEDS: ALPRAZOLAM 0.25 MG TABLET PO SCH (20:38)
[2022-06-24] MEDS: ATORVASTATIN 20 MG TAB PO SCH (20:38)
[2022-06-24] MEDS: FLUTICASONE IH SCH (21:00)
[2022-06-24] MEDS: SALMETEROL IH SCH (21:00)
[2022-06-24 23:20] VITALS: O2SAT 94
[2022-06-25 04:55] LABS: Potassium 3.9 mEq/L (3.5-5.1)
--- NOTE | 2022-06-25 05:49 | HP ---
Date of Admission: 06/24/2022 Chief Complaint: Burning on urination. History Of Present Illness: This is an 81-year-old very pleasant female patient with history of recurrent urinary tract infection, came to office today with her son and reported that on 06/14/2022, she went to our hospital emergency room with complaints of headache and high blood pressure and at that time, she was having burning sensation on urination and suprapubic pain. The patient was evaluated in the ER and was sent home with cephalexin for urinary tract infection and clonidine 0.1 mg 3 times a day as needed for systolic blood pressure higher than 180. The patient reports that she still continues to have this burning sensation on urination along with suprapubic pain and today somebody from emergency room contacted her to change her antibiotics and she decided to come see me and I have reviewed all the workup done in the emergency room including urine culture results. Her urine culture is growing Pseudomonas and it is sensitive to only 2 oral antibiotics which is Cipro and Levaquin and she is allergic to Levaquin and rest of the antibiotics according to culture and sensitivity will be IV antibiotics. I have discussed all these details with her and recommended admission to the hospital for IV antibiotics and the patient was agreeable to do so and arrangements were made for direct admission to the hospital. She denies any fever, chills, nausea, vomiting. Allergies: TO LEVAQUIN, CAUSING RASH AND ITCHING; CODEINE CAUSING PALPITATION; AND AZITHROMYCIN, DETAILS UNKNOWN. Medications: Aspirin 81 mg daily, atorvastatin 20 mg daily, Dexilant 60 mg daily, Advair inhaler 1 puff 2 times a day, Boniva 150 mg once a month, levothyroxine 125 mcg daily, losartan 25 mg daily, nitrofurantoin 100 mg daily, prednisone 5 mg daily, vitamin B12 1000 mcg daily, Caltrate plus D 1 tablet 2 times a day. Review of Systems: Genitourinary: As mentioned above. All other systems reviewed and negative. Past Medical History: Significant for peripheral neuropathy, hypothyroidism, impaired fasting glucose, COPD, hypertension, hyperlipidemia, peripheral vascular disease, gastroesophageal reflux disease, diverticulosis, recurrent urinary tract infection, osteoarthritis at multiple sites, thrombocytopenia, vitamin B12 deficiency, depression, osteoporosis. Past Surgical History: Cholecystectomy, hysterectomy, removal of tumor from left ovary, bladder suspension. Family History: Father , had myocardial infarction and kidney disease. Mother , had heart disease and pneumonia. Brother, has a prostate cancer. Sister , had coronary artery disease, diabetes, and kidney disease. Social History: Prior history of smoking, not at present time. Use of alcohol rarely. Physical Examination: Vital Signs: At office, blood pressure 121/76, pulse 64, temperature 97.7, respiratory rate 15, weight 206.4 pounds, height 62 inches. General: Awake, alert, oriented, not in distress. HEENT: Head atraumatic, normocephalic. Conjunctivae nonerythematous. Sclerae white. Mouth, no thrush or edema noted. Ears/Nose, no mass, lesion, discharge noted. Neck: Supple. No JVD, lymph nodes, bruit, thyromegaly noted. Lungs: Bilateral good equal air entry. Clear to auscultation. No rhonchi. No rales. Heart: Normal heart sounds, no murmur or gallop. Abdomen: Soft, bowel sounds normal. No guarding, rigidity, tenderness, mass, hepatosplenomegaly, distention, or bruit noted. Extremities: No leg edema. No calf tenderness. Skin: No rash, ulcer, cellulitis. Lymphatics: No lymph node enlargement in neck, supraclavicular, infraclavicular region. Neuro: No focal neurological deficit. Chest: Unremarkable. External Genitalia: Deferred. Rectal: Deferred. Laboratory Data: From 06/14/2022, CBC chemistry unremarkable. Urinalysis was abnormal, consistent with urinary tract infection. Urine culture grew Pseudomonas. Today, white count 6.9, hemoglobin 12.1, platelets 108. Sodium 138, potassium 3.7, chloride 109, bicarb 29, BUN 18, creatinine 0.66, glucose 95. Impression: 1. Urinary tract infection, organism Pseudomonas. 2. Hypertension. 3. Hyperlipidemia. 4. Peripheral vascular disease. 5. Hypothyroidism. 6. Chronic obstructive pulmonary disease. 7. Impaired fasting glucose. 8. Peripheral neuropathy. 9. Diverticulosis. 10. Osteoarthritis, multiple sites. Plan: We will go ahead and admit the patient to hospital for further evaluation and management of this problem. The patient is appropriate for inpatient and is expected to spend 2 midnights in hospital. We will go ahead and start the patient on IV cefepime 1 g IV every 12 hours per order. Order PICC line. Consult Social Service to help make arrangements for home IV antibiotic therapy and home health care. We will go ahead and order clonidine on a p.r.n. basis for blood pressure control. Continue her losartan per order. Continue statin therapy per order for hyperlipidemia. We will consider adding amlodipine 5 mg daily, depending on her blood pressure readings in the hospital. Continue levothyroxine for her hypothyroidism. Details and plan of treatment discussed with the patient and her son and I will see her tomorrow morning for followup. KRISTIN/MODMayte Voice ID: [id number] TAY
[2022-06-25] MEDS ORDERED: CEFEPIME 1 GM/VIAL ONE (07:36)
--- NOTE | 2022-06-25 08:18 | RAD REPORT ---
EXAM DESCRIPTION: CT - Abdomen Pelvis W Contrast - 06/25/2022 7:57 am CLINICAL HISTORY: Abdominal pain COMPARISON: 2015 TECHNIQUE: Computed axial tomography of the abdomen pelvis was obtained. 100 cc Isovue-300 was admin istered intravenously. Oral contrast was not requested which limits evaluation of bowel and appendix All CT scans are performed using dose optimization technique as appropriate and may include automated exposure control or mA/KV adjustment according to patient size. FINDINGS: Cholecystectomy Hepatic cyst. Small to moderate hiatal hernia Small duodenal diverticulum Small renal cysts. Hysterectomy. No adnexal mass. Small umbilical hernia. Atherosclerosis There is no evidence of diverticulitis. Moderate anterior subluxation of L4 on L5. Spondylolysis L4 IMPRESSION: No acute abnormality is displayed.
[2022-06-25] MEDS: PANTOPRAZOLE 40MG TABLET PO SCH (08:32)
[2022-06-25] MEDS: predniSONE 5 MG TAB PO SCH (08:32)
[2022-06-25] MEDS: LOSARTAN POTASSIUM 50 MG TABLET PO SCH (08:32)
[2022-06-25] MEDS: LEVOTHYROXINE SOD 0.125 MG TAB PO SCH (08:33)
[2022-06-25] MEDS: SALMETEROL IH SCH ×2 (09:00→21:00)
[2022-06-25] MEDS: FLUTICASONE IH SCH ×2 (09:00→21:00)
[2022-06-25] MEDS ORDERED: POTASSIUM CL SA 10 MEQ TAB PO ONE ×2 (09:00→17:00)
[2022-06-25] MEDS: Mupirocin NASAL 2 APPL/1 GM TUBE NAS SCH ×2 (09:00→21:21)
[2022-06-25] MEDS: CEFEPIME 1 GM in NA CHLORIDE 0.9% 100 ML IV SCH ×2 (09:14→21:23)
--- NOTE | 2022-06-25 15:58 | RAD REPORT ---
EXAM DESCRIPTION: Jose Luist Single View06/25/2022 3:48 pm CLINICAL HISTORY: PICC line placement (right upper arm) COMPARISON: Chest Single View dated 05/02/2022; Chest Single View dated 01/30/2020; Chest Single View dated 07/06/2018; Chest Single View dated 11/26/2015 TECHNIQUE: Portable AP view of the chest. FINDINGS: Decreased inspiratory effort limits evaluation. Right arm PICC in place with catheter tip projecting at the superior cavoatrial junction. Progressive retrocardiac opacification. No pneumothor ax. There may be a small effusion on the left. The cardiomediastinal contours are unremarkable. IMPRESSION: Satisfactory positioning of right arm PICC. Progressive retrocardiac opacification, may relate to atelectasis or developing pneumonia. Small left pleural effusion suspected.
--- NOTE | 2022-06-25 18:17 | RAD REPORT ---
EXAM DESCRIPTION: CT - Thorax Wo Con - 06/25/2022 5:07 pm CLINICAL HISTORY: pleural effusion noted in chest xray COMPARISON: Chest For Pe Angio dated 07/06/2018; Chest Single View dated 06/25/2022 TECHNIQUE: Axial thin cut images of the chest were obtained without IV contrast. Multiplanar reforma ts were generated and reviewed. All CT scans are performed using dose optimization technique as appropriate and may include automated exposure control or mA/KV adjustment according to patient size. FINDINGS: Right arm PICC terminates in the right atrium. No mass or infiltrate in the lung parenchym a. Platelike bibasilar atelectasis. Crowding of the bronchovascular structures particularly at the ba ses, due to decreased inspiratory effort somewhat limits evaluation. The appearance of the left costo phrenic angle opacification on the recent chest x-ray up today may be due to the prominent epicardial fat pad. No pleural thickening or pleural effusion. No pneumothorax. No abnormal mediastinal or hilar masses or lymphadenopathy seen. No significant aortic or pulmonary a rtery findings. Assessment is limited in the absence of IV contrast. Itzs-xk-pcaoohkx cardiomegaly. No chest wall mass or abnormal axillary lymphadenopathy. Evaluation of the solid abdominal structures reveals stable left liver lobe cysts the largest measuri ng 3.1 centimeters. Status post cholecystectomy. IMPRESSION: No acute process within the chest. Decreased inspiratory effort limits evaluation. Mild -to-moderate cardiomegaly.
--- NOTE | 2022-06-25 20:46 | PN ---
Date of Progress Note: 06/25/2022 Subjective: The patient was seen this morning for followup. She was lying in bed, not in any distre ss. Her son was present with her at bedside. She slept well last night, had uneventful night. Burn ing on urination is better. Still has some suprapubic pain, but better than before. No nausea, no v omiting. Physical Examination: Vital Signs: Reviewed. Her blood pressure has started to go up early this morning and it was 160/65 with pulse 71, temperature 97. HEENT: Unremarkable. Lungs: Clear to auscultation. Heart: Sounds normal. Abdomen: Soft. Bowel sounds normal. No guarding, rigidity, tenderness, distention. Extremities: No leg edema. Impression: 1.Urinary tract infection. 2.Hypertension. 3.Thrombocytopenia. Plan: We will go ahead and use SCDs for DVT prophylaxis, continue current antibiotic, cefepime, and the patient does not have PICC line yet. Hopefully, she will get PICC line placed tonight. Social Barbara miguel is working on making arrangements for her to get home IV antibiotic therapy. I have ordered a CT scan of abdomen and pelvis and we will follow up on that. Possible discharge to go home tomorrow . KRISTIN/MODL Voice ID: [id number] Report ID: [id number]
[2022-06-25] MEDS: ATORVASTATIN 20 MG TAB PO SCH (21:18)
[2022-06-25] MEDS: ALPRAZOLAM 0.25 MG TABLET PO SCH (21:18)
[2022-06-25] MEDS: AMLODIPINE 5 MG TAB PO SCH (21:19)
[2022-06-25] MEDS ORDERED: MAGNESIUM HYDROXIDE 8% 30 ML PO ONE (21:35)
[2022-06-26 08:00] LABS: Potassium 3.9 mEq/L (3.5-5.1)
[2022-06-26 08:05] VITALS: BP 109/52; TEMP 98.1
[2022-06-26] MEDS: SALMETEROL IH SCH (09:00)
[2022-06-26] MEDS: FLUTICASONE IH SCH (09:00)
[2022-06-26] MEDS: CEFEPIME 1 GM in NA CHLORIDE 0.9% 100 ML IV SCH (09:00)
[2022-06-26] MEDS: AMLODIPINE 5 MG TAB PO SCH (09:03)
[2022-06-26] MEDS: PANTOPRAZOLE 40MG TABLET PO SCH (09:03)
[2022-06-26] MEDS: Mupirocin NASAL 2 APPL/1 GM TUBE NAS SCH (09:03)
[2022-06-26] MEDS: predniSONE 5 MG TAB PO SCH (09:04)
[2022-06-26] MEDS: LOSARTAN POTASSIUM 50 MG TABLET PO SCH (09:04)
[2022-06-26] MEDS: LEVOTHYROXINE SOD 0.125 MG TAB PO SCH (09:06)
--- NOTE | 2022-06-26 21:28 | DS ---
Date of Discharge: 06/26/2022 Disposition: Discharged to go home. Physical Examination: HEENT: Unremarkable. Lungs: Clear to auscultation. Heart: Sounds normal. Abdomen: Soft. Bowel sounds normal. No guarding, rigidity, tenderness, distention. Extremities: No leg edema. Laboratory Data: Upon admission, sodium 138, potassium 3.7, chloride 109, bicarb 29, BUN 18, creatinine 0.66, glucose 95. Yesterday, sodium 141, potassium 3.9, chloride 112, bicarb 29, BUN 16, creatinine 0.59, glucose 92. Upon admission, white count 6.9, hemoglobin 12.1, platelets 108. Urine culture for this admission grows Enterobacter and urine culture from ER visit prior to this hospital admission was pseudomonas. Both of these organisms are sensitive to cefepime. Discharge Medications And Instructions: 1. Continue all prior home medications. 2. Take following new medications [facility] a. Amlodipine 5 mg take 1 tablet by mouth daily at bedtime. b. Check your blood pressure 3 times a day and if your top number, which is systolic blood pressure is higher than 160, then take clonidine 0.1 mg dose at that time. c. Take cefepime 1 g IV every 12 hours for 10 days. 3. Home health nurse to assist the patient with IV antibiotics, flush PICC line per protocol, change PICC line dressing per protocol, and remove PICC line after 10 days of IV antibiotic therapy completed. 4. Follow up at my office next week or 07/01/2022, and patient to come to office for blood work to be done on 06/30/2022. Hospital Course: This is an 81-year-old female patient came into office for followup after her visit to emergency room. Patient had dysuria and suprapubic pain and she went to emergency room. Her blood pressure was high and she was sent home with cephalexin and clonidine for p.r.n. use. Her urine culture came back growing pseudomonas and the patient was contacted from the emergency room and she decided to come see me and talk to me regarding her treatment. After reviewing all the necessary records and urine culture result, it was recommended to the patient to get admitted to the hospital for IV antibiotic therapy because she is allergic to Levaquin, so she will not be able to take Levaquin or Cipro. After arrangements completed, patient was admitted to the hospital and IV cefepime was started, which was a culture specific antibiotic. Repeat urine culture was also sent prior to starting IV cefepime. Once we started IV antibiotic, patient's overall condition improved. Her dysuria and suprapubic pain has resolved. CAT scan of the abdomen and pelvis did not show any acute findings showed kidney cyst, the liver cyst, some degenerative joint changes of lumbar spine, and hiatal hernia. Chest x-ray after PICC line placement had shown some abnormality in the mediastinum, so CT scan of the chest was done without contrast, which came back unremarkable. All the details were discussed with the patient and her son who was at bedside this morning. After PICC line was placed Social Service completed arrangements for her to receive home IV antibiotics and she was discharged in stable condition today with above- mentioned medications and instructions. Final Diagnoses: 1. Urinary tract infection, organism Pseudomonas. 2. Hypertension. 3. Hyperlipidemia. 4. Peripheral vascular disease. 5. Hypothyroidism. 6. Chronic obstructive pulmonary disease. 7. Impaired fasting glucose. 8. Peripheral neuropathy. 9. Diverticulosis. 10. Osteoarthritis, multiple sites. 11. Thrombocytopenia. KRISTIN/MODL Voice ID: [id number] Report ID: [id number] TAY
== END 2022-06-26 14:30 | disposition home health service (06) | DRG 690 ==
LOC: 4TH 11:24
PROVIDERS: ADMIT Internal Medicine; ATTEND Internal Medicine
PROC: 02HV33Z Insertion of Infusion Device into Superior Vena Cava, Percutaneous Approach (ICD-10-PCS; principal; 2022-06-25)
DX: N39.0 Urinary tract infection, site not specified (principal); J44.9 Chronic obstructive pulmonary disease, unspecified; I10 Essential (primary) hypertension; E78.5 Hyperlipidemia, unspecified; E03.9 Hypothyroidism, unspecified; G62.9 Polyneuropathy, unspecified; D69.6 Thrombocytopenia, unspecified; I73.9 Peripheral vascular disease, unspecified; K21.9 Gastro-esophageal reflux disease without esophagitis; K76.89 Other specified diseases of liver; N28.1 Cyst of kidney, acquired; M19.09 Primary osteoarthritis, other specified site; K57.90 Diverticulosis of intestine, part unspecified, without perforation or abscess without bleeding; B96.89 Other specified bacterial agents as the cause of diseases classified elsewhere; B96.5 Pseudomonas (aeruginosa) (mallei) (pseudomallei) as the cause of diseases classified elsewhere; R73.01 Impaired fasting glucose; Z88.1 Allergy status to other antibiotic agents; Z88.5 Allergy status to narcotic agent; Z90.49 Acquired absence of other specified parts of digestive tract; Z79.82 Long term (current) use of aspirin; Z79.52 Long term (current) use of systemic steroids; Z90.710 Acquired absence of both cervix and uterus; Z87.891 Personal history of nicotine dependence; Z79.890 Hormone replacement therapy
CPT/HCPCS: 36415; 36569; 71045; 71250; 74177; 80048; 81001; 83735; 85025; 87077; 87086; 87088; 87186; J0692; J7512; Q9967

== ENCOUNTER 2022-07-01 12:18 | Emergency (ER) | payer MEDICARE, OTHER ==
--- OUTSIDE RECORDS SUMMARY | 2022-07-01 12:30 | XMS REPORT | Continuity of Care Document ---
:1940 Author Organization [facility] t Address [address] [place] [address] [address] [place] [address] Care Team Providers Name Role Phone Asked, [...] Attending Clinician Tiana Martinez MD Attending Clinician [phone] aMt FLANNERY, Millicent Attending Clinician Ene Pappas RN Attending Clinician Unavailable WALT MAYERS Attending Clinician Unavailable Walt Mayers MD Attending Clinician Doctor Unassigned, [place] Attending Clinician Unavailable Vasquez MARTIN, Carroll Falcon Attending Clinician Unavailable REMY DONAHUE Attending Clinician Unavailable Augustine WALTON, Marta Attending Clinician Rowan WHITLOCK, Remy Attending Clinician EWELINA NORIEGA Attending Clinician Unavailable Ewelina Noriega MD Attending Clinician [facility], Magalys Braga Attending Clinician [phone] Nurse, [facility] Attending Clinician Unavailable Avelino WHITLOCK, Jimmy Quintero [...] Type Policy Number Effective Date Expiration Date Barbara TABARES/BONITAP [id number] 2019 MEDICARE 00:00:00 ADVANTAGE AARP Medicare C1 [id number] [facility] rit [facility] AARP Medicare C1 [id number] [facility] rit [facility] Problems Condition Condition Condition Status Onset Resolution [...] incontinen Spirit incontinen ce - [facility] Allergies, Adverse Reactions, Alerts Allergy Allergy Status Severity Reaction(s) Onset Inactive Treating Comm ents Source Name Type Date Date Clinician Jessie Propensi Active Swelling Lip Method i ty to 10-[address] adverse 00:00: Hospita reaction 00 l s to drug [facility] DRUG Active Rash Univers INGREDI 10-07 ity [...] Uni vers INGREDI 02-18 ity of 00:00: [address] azithrom azithrom Active Unknown Commo n ycin ycin Spirit - [facility] Family History Family Member Diagnosis Comments Start Date Stop Date Source Natural brother [facility] Natural father [facility] Natural sister Diabetes [facility] Natural sister Kidney failure Method [facility] Natural sister Ovarian cancer Method [facility] Social History Social Habit Start Date Stop Date Quantity Comments Source History SDOH University o f Alcohol Frequency [facility] edical [place] History SDOH University o f Alcohol Std Drinks [facility] History [facility] University o f Alcohol Binge [facility] Gender identity [facility] Sexual orientation Method [facility] History of Tobacco Common Spirit - Use [facility] History of Social 2022-05-26 2022-05-[address] function 00:00:00 00:00:00 Hospital Exposure to 2022-04-13 2022-04-23 Not sure University of SARS-CoV-2 (event) 00:00:00 10:48:00 [facility] Alcohol intake 2022-04-20 2022-04-20 Lifetime [facility] 00:00:00 00:00:00 non-drinker Hospital (finding) Cigarettes smoked 2021-10-16 2021-10-[address] current (pack per 00:00:00 00:00:00 Hospita l day) - Reported Cigarette 2021-10-16 2021-10-16 [facility] pack-years 00:00:00 00:00:00 Hospital Tobacco use and 2021-10-16 2021-10-16 Smokeless [facility] exposure 00:00:00 00:00:00 tobacco non-user Hospital Tobacco Comment 2018-01-18 2018-01-18 quit in 2013. Univer sity of 00:00:00 00:00:00 [facility] Alcohol Comment 2016-03-13 2016-03-13 Rare Universit y of 00:00:00 00:00:00 [facility] Sex Assigned At [birth year] [facility] 00:00:00 00:00:00 Hospital Smoking Status Start Date Stop Date Source Ex-smoker 2021-10-16 00:00:00 2021-10-16 00:00:00 [facility] Medications Ordered Filled Start Stop Current Ordering Indication Dosage Frequency Signature Comments Components Source Medication Medication Date Date Medication? Clinician (SIG) Name Name Fluticasone 2022-0 3- No 1{puff} Inhale 1 Univers -Salmeterol 3-16 03-16 Puff in ity of (ADVAIR 14:15: 00:00 the Daric DISKUS) 47 :00 morning Medical 100-50 and [...] total) Hospit a 02 daily. l polyethylen 3-0 3- No 4000mL Take 4,000 Methodi e glycol 2-08 02-09 mL by (QualMetrix) 00:00: 05:59 mouth once Hospita 236-22.74-6 00 :00 for 1 l .74 -5.86 dose. gram solution polyethylen 2023-0 3- No 4000mL Take 4,000 Methodi e glycol 2-08 02-[address] (QualMetrix) 00:00: 05:59 mouth once Hospita 236-22.74-6 00 :00 for 1 l .74 -5.86 dose. gram solution polyethylen 3-0 3- No 4000mL Take 4,000 Methodi e glycol 2-08 02-[address] (QualMetrix) 00:00: 05:59 mouth once Hospita 236-22.74-6 00 :00 for 1 l .74 -5.86 dose. gram solution polyethylen 2022- No 4000mL Take 4,000 Methodi e glycol 2-08 02-[address] (QualMetrix) 00:00: 05:59 mouth once Hospita 236-22.74-6 00 :00 for 1 l .74 -5.86 dose. gram solution polyethylen 2022-0 2022- No 4000mL Take 4,000 Methodi e glycol 2-08 02-[address] (QualMetrix) 00:00: 05:59 mouth once Hospita 236-22.74-6 00 :00 for 1 l .74 -5.86 dose. gram solution lactobacill 2022- No 1mg 1 mg, Univ ers us 03-09 Oral, ONCE ity of acidophilus 19:30: 19:49 NOW, 1 [facility] as tablet 1 mg 00 :00 dose, On [facility] Branch 03/09/22 at 1330, JOHN ketorolac 2022- No 10mg 10 mg, Unive rs (TORADOL) 03-09 Oral, ONCE ity of tablet 10 19:30: 19:49 NOW, 1 [place] mg 00 :00 dose, On [facility] Branch 03/09/22 at 1330, JOHN amoxicillin 2022- No 1{tbl} 1 tablet, Univers -clavulanat 03-09 Oral, ONCE i ty of e 19:15: 19:49 NOW, 1 [place] (AUGMENTIN) 00 :00 dose, On [facility] 875-125 mg [facility] per tablet 03/09/22 at 1 tablet 1315, Routine
Reason for Anti-Infec tive: Documented Infection< br>Documen theodora Infection Site: HEENT
D uration of Therapy: Other (see Comments) cefpodoxime Yes [id number] 200mg Take 1 Univers 200 mg 1-30 tablet by ity of tablet 00:00: mouth in [place] 00 the Medical morning Branch and 1 tablet in the evening. hyoscyamine Yes [id number] .25mg Place 2 Univers sulfate 1-30 tablets ity of (LEVSIN/SL) 00:00: under the [place] 0.125 mg 00 tongue Medical sublingual every 6 Branch tablet (six) hours as needed (Abdominal pain or cramping). meloxicam 2022-0 Yes [id number] 15mg Take 1 U nivers 15 mg 1-30 tablet by ity of tablet 00:00: mouth in [place] 00 the Medical morning. Branch acetaminoph 2022-0 Yes [id number] 650mg Take 1 Univers en (TYLENOL 1-30 tablet by ity of ARTHRITIS 00:00: mouth [place] PAIN) 650 00 every 8 Medical mg CR (eight) Branch tablet hours as needed for Pain. Saccharomyc 2022-0 Yes [id number] 250mg Take 1 Univers es 1-30 capsule by ity of boulardii 00:00: mouth in [facility] (FLORASTOR) 00 the Medical 250 mg morning Branch capsule and 1 capsule in the evening. cefpodoxime 2022-0 Yes [id number] 200mg Take 1 Univers 200 mg 1-30 tablet by ity of tablet 00:00: mouth in [place] 00 the Medical morning Branch and 1 tablet in the evening. hyoscyamine 2022-[id number] 2 Univers sulfate 1-30 tablets ity of (LEVSIN/SL) 00:00: under the [place] 0.125 mg 00 tongue Medical sublingual every 6 Branch tablet (six) hours as needed (Abdominal pain or cramping). meloxicam 2022-0 Yes [id number] 15mg Take 1 U nivers 15 mg 1-30 tablet by ity of tablet 00:00: mouth in [place] 00 the Medical morning. Branch acetaminoph 2022-0 Yes [id number] 650mg Take 1 Univers en (TYLENOL 1-30 tablet by ity of ARTHRITIS 00:00: mouth [place] PAIN) 650 00 every 8 Medical mg CR (eight) Branch tablet hours as needed for Pain. Saccharomyc 2022-0 Yes [id number] 250mg Take 1 Univers es 1-30 capsule by ity of boulardii 00:00: mouth in [facility] (FLORASTOR) 00 the Medical 250 mg morning Branch capsule and 1 capsule in the evening. cephALEXin 0 2022- No 500mg 500 mg, Un li (KEFLEX) 1-14 02-21 Oral, ity of capsule 500 03:45: 03:33 ONCE, 1 [place] mg 00 :00 dose, On Medical Fri Branch 02/20/22 at 2145, JOHN
Re ason for Anti-Infec tive: Empiric Therapy for Suspected Infection< br>Empiric Therapy Site: Skin / Soft tissue
Duration of therapy: 5 days cephALEXin 2022-0 202- No [id number] 500mg Take 1 Univers (KEFLEX) 02-20 capsule by ity of 500 mg 00:00: 05:59 mouth 4 [place] capsule 00 :00 (four) Medical times Branch daily for 7 days. levothyroxi 2021-0 Yes Method i ne 8- st (SYNTHROID) 00:00: Hospit a 150 mcg 00 l tablet levothyroxi 2021-0 Yes Method i ne 8- st (SYNTHROID) 00:00: Hospit a 150 mcg 00 l tablet levothyroxi 2021-0 Yes Method i ne 8- st (SYNTHROID) 00:00: Hospit a 150 mcg 00 l tablet levothyroxi 2021-0 Yes Method i ne 8 st (SYNTHROID) 00:00: Hospit a 150 mcg 00 l tablet levothyroxi 2021-0 Yes Method i ne 8- st (SYNTHROID) 00:00: Hospit a 150 mcg [...] 00 by mouth l nightly. Dexilant 60 2-0 Yes 60mg QD Take 1 Meth alonzo mg capsule 8-[address] 00:00: (60 mg Hospita 00 total) by l mouth daily. atorvastati 2-0 Yes 20mg QD Take 1 Meth alonzo n (LIPITOR) 8-03 tablet (20 st 20 mg 00:00: mg total) Hospita tablet 00 by mouth l nightly. Dexilant 60 2-0 Yes 60mg QD Take 1 Meth alonzo mg capsule 8-[address] 00:00: (60 mg Hospita 00 total) by l mouth daily. atorvastati 2021-0 Yes 20mg QD Take 1 Meth alonzo n (LIPITOR) 8-03 tablet (20 st 20 mg 00:00: mg total) Hospita tablet 00 by mouth l nightly. Dexilant 60 2-0 Yes 60mg QD Take 1 Meth alonzo mg capsule 8-[address] 00:00: (60 mg Hospita 00 total) by l mouth daily. atorvastati 2-0 Yes 20mg QD Take 1 Meth alonzo n (LIPITOR) 8-03 tablet (20 st 20 mg 00:00: mg total) Hospita tablet 00 by mouth l nightly. Dexilant 60 2-0 Yes 60mg QD Take 1 Meth alonzo mg capsule 8-[address] 00:00: (60 mg Hospita 00 total) by l mouth daily. atorvastati 0 2022- No 20mg Take 1 Uni vers n 20 mg 8-03 03-16 tablet by ity of tablet 00:00: 00:00 mouth. [place] 00 :00 [facility] gadobenate 2021-0 2021- No [id number] .2mL/kg 0.2 mL/kg, [facility] dimeglumine 07-31 Intravenou i ty of (MULTIHANCE [...] 25mg QD Take 1 Methodi (COZAAR) 25 -09 tablet (25 st MG tablet 00:00: mg total) Hos [place] 00 by mouth l daily. losartan 25 2021-0 Yes 25mg Take 1 Univ ers mg tablet 07-17 tablet by ity o f 00:00: mouth. [place] [address] Medical Branch barium 2021- No [id number] 700mg 700 mg, Un li sulfate 06-11 Oral, ity of (E-Z DISK) 16:45: 15:39 ONCE, 1 [facility] as tablet 700 00 :00 dose, On Medic al mg 06/11/21 Branch at 1145, Routine barium 2021- No [id number] 680g 680 g, Univ ers sulfate 06-11 Oral, ity of (LIQUID E-Z 15:45: 15:39 ONCE, 1 [place] PAQUE) 60 % 00 :00 dose, On Medi kj (w/v) oral Wed 06/11/21 Bra nch suspension at 1045, 680 g Routine docusate 2022-0 Yes 100mg 100 mg, Unive rs (COLACE) 2-28 Oral, ity of capsule 100 22:30: DAILY, [place] mg 00 First dose Medical (after Branch last modificati on) on 04/07/21 at 1630, Until Discontinu ed, Routine sulfur 2021- No [id number] 5mL 5 mL, Unive rs hexafluorid 04-07-28 Intravenou i ty of e microsphr 21:45: 21:45 s, ONCE, 1 [place] (LUMASON) 00 :00 dose, On Medica l injection 5 Wed Branch mL 04/07/21 at 1545, Routine
bioinformatics team member approving Restricted medication : VICKI TELLO aspirin 81 Yes 81mg Take 81 mg U nivers mg chewable 2-28 by mouth ity of tablet 18:09: daily. [address] Branch rosuvastati Yes 5mg Take 5 mg U nivers n 5 mg 2-28 by mouth ity of tablet 18:09: daily. [place] [address] Medical Branch Fluticasone Yes 1{puff} Inhale 1 [...] by mouth ity of tablet 18:09: daily. [place] [address] Medical Branch rosuvastati Yes 5mg Take 5 mg U nivers n 5 mg 2-28 by mouth ity of tablet 18:09: daily. [place] [address] Medical Branch Fluticasone Yes 1{puff} Inhale 1 [...] Medical capsule Branch multivit-mi Yes Take by Un li ns 2-28 mouth ity of no.63/iron/ 18:09: [...] by mouth ity of tablet 18:09: daily. [place] [address] Medical Branch rosuvastati Yes 5mg Take 5 [...] mcg by ity of tablet 18:09: mouth [place] [address] every Medical morning. Branch For total of 225 albuterol Yes 1{puff} Inhale 1 U nivers sulfate 2-28 Puff as ity of (PROAIR HFA 18:09: needed. [facility] as INHALE) Medical Branch IBUPROFEN Yes 1{tbl} Take 1 Univ ers ORAL 2-28 tablet by ity of 18:09: mouth as [place] [address] needed. Medical Branch aspirin 81 0 Yes 81mg Take 81 mg U nivers mg chewable 2-28 by mouth ity of tablet 18:09: daily. Medical Branch rosuvastati Yes 5mg Take 5 mg U nivers n 5 mg 2-28 by mouth ity of tablet 18:09: daily. [place] [address] Medical Branch Fluticasone Yes 1{puff} Inhale 1 [...] mcg by ity of tablet 18:09: mouth every Medical morning. Branch For total of 225 albuterol Yes 1{puff} Inhale 1 U nivers sulfate 2-28 Puff as ity of (PROAIR HFA 18:09: needed. [facility] as INHALE) Medical Branch IBUPROFEN Yes 1{tbl} Take 1 Univ ers ORAL 2-28 tablet by ity of 18:09: mouth as [place] [address] needed. Medical Branch aspirin 81 Yes 81mg [...] of no.63/iron/ 18:09: daily. [place] folic Medical (M-VIT Branch ORAL) levothyroxi Yes 200ug [...] by mouth ity of tablet 18:09: daily. [place] [address] Medical Branch rosuvastati Yes 5mg Take 5 mg U nivers n 5 mg 2-28 by mouth ity of tablet 18:09: daily. [place] [address] Medical Branch Fluticasone Yes 1{puff} Inhale 1 [...] by mouth ity of tablet 18:09: daily. [place] [address] Medical Branch rosuvastati Yes 5mg Take 5 mg U nivers n 5 mg 2-28 by mouth ity of tablet 18:09: daily. [place] [address] Medical Branch Fluticasone Yes 1{puff} Inhale 1 [...] by mouth ity of tablet 18:09: daily. [place] [address] Medical Branch rosuvastati Yes 5mg Take 5 mg U nivers n 5 mg 2-28 by mouth ity of tablet 18:09: daily. [place] [address] Medical Branch Fluticasone Yes 1{puff} Inhale 1 [...] [facility] as INHALE) 07 Medical Branch IBUPROFEN 2022-0 Yes 1{tbl} Take 1 Univ ers ORAL - tablet by ity of 18:09: mouth as [place] 07 needed. Medical Branch atorvastati No 10mg Take 10 mg Univers n [...] 40 mg 00 First dose Medical on [facility] 04/07/21 at 0900, Until Discontinu ed, Routine rosuvastati 0 Yes 5mg 5 mg, Unive rs n (CRESTOR) 04-07 Oral, ity of tablet 5 mg 15:00: DAILY, [place] 00 First dose Medical on [facility] 04/07/21 at 0900, Until Discontinu ed, Routine aspirin Yes 81mg 81 mg, Univers chewable 04-07 Oral, ity of tablet 81 15:00: DAILY, [place] mg 00 First dose Medical on [facility] 04/07/21 at 0900, Until Discontinu ed, Routine Fluticasone 0 Yes 1{puff} 1 Puff, Univers -Salmeterol 04-07 Inhalation it y of (ADVAIR) 14:00: , Q12H, [place] 100-50 00 First dose Medical mcg/dose on [facility] inhalation 04/07/21 at disk 1 Puff 0800, Until Discontinu ed, Routine benzonatate 0 Yes 100mg 100 mg, Un li (TESSALON - Oral, Q8H, ity of PERLES) 06:45: First dose [place] capsule 100 00 on [facility] Medica l mg 04/07/21 at Branch 0045, Until Discontinu ed, Routine codeine-gua 0 Yes 5mL 5 mL, Unive rs ifenesin - Oral, ity of (ROBITUSSIN 06:38: Q6HPRN, [facility] as AC) 10-100 28 Starting Medic al mg/5 mL on [place] oral 04/07/21 at solution 5 0038, mL Until Discontinu ed, Routine, Cough nitroglycer 2021-0 Yes .4mg 0.4 mg, Uni vers in 04-07 Sublingual ity of (NITROSTAT) 04:46: , Q5MIN [facility] as sublingual 32 PRN, Medical tablet 0.4 Starting Branc h mg on [place] 04/06/21 at 2246, Until Discontinu ed, Routine, Chest pain ondansetron 2021-0 Yes 4mg 4 mg, Slow Univers (ZOFRAN 04-07 IV Push, ity of (PF)) 04:46: Q6HPRN, [place] injection 4 14 Starting Medi kj mg on [facility] 04/06/21 at 2246, Until Discontinu ed, Routine, Nausea and Vomiting (N/V) ibuprofen 2021-0 Yes 200mg 200 mg, Univ ers (MOTRIN IB) 04-07 Oral, ity of tablet 200 04:46: Q6HPRN, [place] mg 04 Starting Medical on [facility] 04/06/21 at 2246, Until Discontinu ed, Routine, Pain (scale 1-3) bisacodyL 2021-0 Yes 5mg 5 mg, Univers (DULCOLAX) 04-07 Oral, ity of tablet 5 mg 04:44: QDAILYPRN, [place] 18 Starting Medical on [facility] 04/06/21 at 2244, Until Discontinu ed, Routine, Constipati on ondansetron 2021-0 202- No 4mg 4 mg, Slow Univers (ZOFRAN 04-07 IV Push, ity of (PF)) 02:00: 00:55 ONCE, 1 [place] injection 4 00 :00 dose, On Medi kj mg [facility] 04/06/21 at 2000, JOHN aspirin 2021-0 202- No 325mg 325 mg, Unive rs tablet 325 04-07 Oral, ity of mg 01:45: 00:53 ONCE, 1 [place] 00 :00 dose, On Medical [facility] 04/06/21 at 1945, JOHN nitroglycer 2021-[id number] 1 Univers in 0.4 mg 04-07 tablet ity of sublingual 00:00: under the [place] tablet 00 tongue Medical every 5 Branch (five) minutes as needed for Chest pain. nitroglycer 2022-[id number] 1 Univers in 0.4 mg 2-28 tablet ity of sublingual 00:00: under the [place] tablet 00 tongue Medical every 5 Branch (five) minutes as needed for Chest pain. nitroglycer 2022-[id number] 1 Univers in 0.4 mg 2-28 tablet ity of sublingual 00:00: under the [place] tablet 00 tongue Medical every 5 Branch (five) minutes as needed for Chest pain. nitroglycer 2022-[id number] 1 Univers in 0.4 mg 2-28 tablet ity of sublingual 00:00: under the [place] tablet 00 tongue Medical every 5 Branch (five) minutes as needed for Chest pain. nitroglycer 2022-[id number] 1 Univers in 0.4 mg 2-28 tablet ity of sublingual 00:00: under the [place] tablet 00 tongue Medical every 5 Branch (five) minutes as needed for Chest pain. nitroglycer 2022-[id number] 1 Univers in 0.4 mg 2-28 tablet ity of sublingual 00:00: under the [place] tablet 00 tongue Medical every 5 Branch (five) minutes as needed for Chest pain. nitroglycer 2022-[id number] 1 Univers in 0.4 mg 2-28 tablet ity of sublingual 00:00: under the [place] tablet 00 tongue Medical every 5 Branch (five) minutes as needed for Chest pain. nitroglycer 2022-[id number] 1 Univers in 0.4 mg 2-28 tablet ity of sublingual 00:00: under the [place] tablet 00 tongue Medical every 5 Branch (five) minutes as needed for Chest pain. nitroglycer 2022-[id number] 1 Univers in 0.4 mg 2-28 tablet ity of sublingual 00:00: under the [place] tablet 00 tongue Medical every 5 Branch (five) minutes as needed for Chest pain. nitroglycer 2022-[id number] 1 Univers in 0.4 mg 2-28 tablet ity of sublingual 00:00: under the [place] tablet 00 tongue Medical every 5 Branch (five) minutes as needed for Chest pain. docusate 2021-0 2- No [id number] 100mg Take 1 U nivers 100 mg -05 05- capsule by ity of capsule 00:00: 04:59 mouth [place] 00 :00 daily for Medical 30 days. Branch docusate 2021-0 2- No [id number] 100mg Take 1 U nivers 100 mg 04-07- capsule by ity of capsule 00:00: 04:59 mouth [place] 00 :00 daily for Medical 30 days. Branch benzonatate 2021-0 2021- No [id number] 100mg Take 1 Univers 100 mg 04-07- capsule by ity of capsule 00:00: 05:59 mouth [place] 00 :00 every 8 Medical (eight) Branch hours for 7 days. benzonatate 2021-0 2- No [id number] 100mg Take 1 Univers 100 mg 04-07- capsule by ity of capsule 00:00: 05:59 mouth [place] 00 :00 every 8 Medical (eight) Branch hours for 7 days. Premarin Premarin No Premarin 0.625 MG/GM 0.625 MG/GM 2-23 0.625 00:00: MG/GM 00 Nitrofurant Nitrofurant 2019-0 2020- No [place] 1 capsule Common oin Monohyd oin Monohyd 7-27 10-25 [place] at bedtime Spirit Macro Macro 00:00: 00:00 with food - [facility] 00 :00 [facility] estradiol 2020-0 Yes [id number] 2g Insert 2 g Univers (ESTRACE) 3-12 into ity of 0.01 % (0.1 00:00: vagina [place] mg/gram) 00 weekly. Medical vaginal Branch cream estradiol 2020-0 Yes [id number] 2g Insert 2 g Univers (ESTRACE) 3-12 into ity of 0.01 % (0.1 00:00: vagina [place] mg/gram) 00 weekly. Medical vaginal Branch cream estradiol 2020-0 Yes [id number] 2g Insert 2 g Univers (ESTRACE) 3-12 into ity of 0.01 % (0.1 00:00: vagina [place] mg/gram) 00 weekly. Medical vaginal Branch cream estradiol 2020-0 Yes [id number] 2g Insert 2 g Univers (ESTRACE) 3-12 into ity of 0.01 % (0.1 00:00: vagina [place] mg/gram) 00 weekly. Medical vaginal Branch cream estradiol 2020-0 Yes [id number] 2g Insert 2 g Univers (ESTRACE) 3-12 into ity of 0.01 % (0.1 00:00: vagina [place] mg/gram) 00 weekly. Medical vaginal Branch cream estradiol 2020-0 Yes [id number] 2g Insert 2 g Univers (ESTRACE) 3-12 into ity of 0.01 % (0.1 00:00: vagina [place] mg/gram) 00 weekly. Medical vaginal Branch cream estradiol 2020-0 Yes [id number] 2g Insert 2 g Univers (ESTRACE) 3-12 into ity of 0.01 % (0.1 00:00: vagina [place] mg/gram) 00 weekly. Medical vaginal Branch cream estradiol 2020-0 Yes [id number] 2g Insert 2 g Univers (ESTRACE) 3-12 into ity of 0.01 % (0.1 00:00: vagina [place] mg/gram) 00 weekly. Medical vaginal Branch cream estradiol 2020-0 Yes [id number] 2g Insert 2 g Univers (ESTRACE) 3-12 into ity of 0.01 % (0.1 00:00: vagina [place] mg/gram) 00 weekly. Medical vaginal Branch cream estradiol 2020-0 Yes [id number] 2g Insert 2 g Univers (ESTRACE) 3-12 into ity of 0.01 % (0.1 00:00: vagina [place] mg/gram) 00 weekly. Medical vaginal Branch cream estradiol 2020-0 Yes [id number] 2g Insert 2 g Univers (ESTRACE) 3-12 into ity of 0.01 % (0.1 00:00: vagina [place] mg/gram) 00 weekly. Medical vaginal Branch cream estradiol 2020-0 Yes [id number] 2g Insert 2 g Univers (ESTRACE) 3-12 into ity of 0.01 % (0.1 00:00: vagina [place] mg/gram) 00 weekly. Medical vaginal Branch cream estradiol 2020-0 Yes [id number] 2g Insert 2 g Univers (ESTRACE) 3-12 into ity of 0.01 % (0.1 00:00: vagina [place] mg/gram) 00 weekly. Medical vaginal Branch cream estradiol 2020-0 Yes [id number] 2g Insert 2 g Univers (ESTRACE) 3-12 into ity of 0.01 % (0.1 00:00: vagina [place] mg/gram) 00 weekly. Medical vaginal Branch cream trospium 20 2020-0 2020- No [id number] 20mg Take 1 Univers mg tablet 04-19- tablet by ity of 00:00: 04:59 mouth 2 [place] 00 :00 (two) Medical times Branch daily for 90 days. trospium 20 2020-0 2020- No [id number] 20mg Take 1 Univers mg tablet 04-19- tablet by ity of 00:00: 04:59 mouth 2 [place] 00 :00 (two) Medical times Branch daily for 90 days. trospium 20 2020-0 2020- No [id number] 20mg Take 1 Univers mg tablet 04-19- tablet by ity of 00:00: 04:59 mouth 2 [place] 00 :00 (two) Medical times Branch daily for 90 days. trospium 20 2020-0 2020- No [id number] 20mg Take 1 Univers mg tablet 04-19- tablet by ity of 00:00: 04:59 mouth 2 [place] 00 :00 (two) Medical times Branch daily for 90 days. cephALEXin 2020-0 Yes [id number] Pt is to Univers 250 mg 1-28 start ity of capsule 00:00: taking [place] 00 medication Medical after Branch completion of first dose of antbiotics . Take by mouth daily cephALEXin 2020-0 Yes [id number] Pt is to Univers 250 mg 1-28 start ity of capsule 00:00: taking [place] 00 medication Medical after Branch completion of first dose of antbiotics . Take by mouth daily cephALEXin 2020-0 Yes [id number] Pt is to Univers 250 mg 1-28 start ity of capsule 00:00: taking [place] 00 medication Medical after Branch completion of first dose of antbiotics . Take by mouth daily cephALEXin 2020-0 Yes [id number] Pt is to Univers 250 mg 1-28 start ity of capsule 00:00: taking [place] 00 medication Medical after Branch completion of first dose of antbiotics . Take by mouth daily cephALEXin 2020-0 Yes [id number] Pt is to Univers 250 mg 1-28 start ity of capsule 00:00: taking [place] 00 medication Medical after Branch completion of first dose of antbiotics . Take by mouth daily cephALEXin 2020-0 Yes [id number] Pt is to Univers 250 mg -28 start ity of capsule 00:00: taking [place] 00 medication Medical after Branch completion of first dose of antbiotics . Take by mouth daily cephALEXin 2020-0 Yes [id number] Pt is to Univers 250 mg -28 start ity of capsule 00:00: taking [place] 00 medication Medical after Branch completion of first dose of antbiotics . Take by mouth daily cephALEXin 2020-0 Yes [id number] Pt is to Univers 250 mg -28 start ity of capsule 00:00: taking [place] 00 medication Medical after Branch completion of first dose of antbiotics . Take by mouth daily cephALEXin 2020-0 Yes [id number] Pt is to [facility] 250 mg -28 start ity of capsule 00:00: taking [place] 00 medication Medical after Branch completion of first dose of antbiotics . Take by mouth daily cephALEXin 2020-0 Yes [id number] Pt is to [facility] 250 mg -28 start ity of capsule 00:00: taking [place] 00 medication Medical after Branch completion of first dose of antbiotics . Take by mouth daily cephALEXin 2020-0 Yes [id number] Pt is to [facility] 250 mg 1-28 start ity of capsule 00:00: taking [place] 00 medication Medical after Branch completion of first dose of antbiotics . Take by mouth daily cephALEXin 2020-0 2021- No [id number] Pt is to [facility] 250 mg 1-28 04-07 start ity of capsule 00:00: 00:00 taking [place] 00 :00 medication Medical after Branch completion of first dose of antbiotics . Take by mouth daily atorvastati 2019-0 Yes 10mg Take 10 mg [...] mouth as [place] needed. Medical Branch atorvastati 2019-0 Yes 10mg [...] [place] 26 every Medical morning. Branch levothyroxi Yes 25ug [...] by mouth ity of tablet 20:39: at [place] [address] bedtime. Medical Branch Fluticasone Yes 1{puff} Inhale 1 [facility] -Salmeterol 1-27 Puff every it y of (ADVAIR 20:39: 12 [place] DISKUS) 26 (twelve) Medical 100-50 hours. Branch mcg/dose inhalation disk ibandronate 2019-0 Yes 150mg Take 150 U nivers 150 mg 1-27 mg by ity of tablet 20:39: mouth once [place] every Medical month. Branch Dexlansopra 0 Yes [...] mouth [place] every Medical morning. Branch levothyroxi 2019-0 Yes [...] tablet by ity of 20:39: mouth as [place] [address] needed. Medical Branch atorvastati Yes 10mg Take 10 mg [facility] n 10 mg 1-27 by mouth ity of tablet 20:39: at [place] [address] bedtime. Medical Branch Fluticasone Yes 1{puff} Inhale 1 [facility] -Salmeterol 1-27 Puff every it y of (ADVAIR 20:39: 12 [place] DISKUS) 26 (twelve) Medical 100-50 hours. Branch mcg/dose inhalation disk ibandronate 2020-0 Yes 150mg Take 150 U nivers 150 mg 1-27 mg by ity of tablet 20:39: mouth once [place] every Medical month. Branch Dexlansopra 2019-0 Yes [...] mouth [place] every Medical morning. Branch levothyroxi 2019-0 Yes [...] mouth as [place] needed. Medical Branch atorvastati 2019-0 Yes 10mg [...] mouth as [place] needed. Medical Branch atorvastati 0 Yes 10mg Take 10 mg [facility] n 10 mg 1-27 by mouth ity of tablet 20:39: at [place] bedtime. Medical Branch Fluticasone 0 Yes 1{puff} Inhale 1 [facility] -Salmeterol 1-27 Puff every it y of (ADVAIR 20:39: 12 [place] DISKUS) 26 (twelve) Medical 100-50 hours. Branch mcg/dose inhalation disk ibandronate 0 Yes 150mg Take 150 U nivers 150 mg 1-27 mg by ity of tablet 20:39: mouth once [place] every Medical month. Branch Dexlansopra 0 Yes [...] mouth [place] every Medical morning. Branch levothyroxi 0 Yes [...] mouth as [place] 26 needed. Medical Branch flu vaccine 2019-0 2020- No .5mL 0.5 mL, Un li 66 yrs and 03-06 Intramuscu it y of up (FLUZONE 19:45: 20:09 lar, ONCE, [place] HIGH-DOSE 00 :00 1 dose, Medical Mon Branch (PF)) 03/06/19 at syringe 0.5 1345, mL Routine cefTRIAXone 2020-0 Yes 1000mg 1,000 mg, [facility] (ROCEPHIN) - IV ity of 1,000 mg in 17:08: [place], [place] NaCl 0.9% 00 Q24H ABX, Medic al (NS) 50 mL First dose Bra nch MINI-BAG on 03/06/19 at 1115, Until Discontinu ed, 50 mL
R margoth for Anti-Infec tive: Documented Infection< br>Documen theodora Infection Site: Urine<br&g t;Duration of Therapy: 7 days cyanocobala 2020-0 Yes 1000ug 1,000 mcg, [facility] min - Subcutaneo ity of (VITAMIN 01:30: [place], Q24H, [place] B12[place] 00 First dose Medical injection on [place] Branch 1,000 mcg 03/05/19 at 1930, Until [...] MCG tablet mouth daily. vitamin 2020-0 Yes [id number] 1000ug Take 1 Un li B-12 1,000 1-27 tablet by ity of mcg tablet 00:00: mouth [place] 00 daily. Medical Branch lactobacill 2020-0 Yes [id number] 1{tbl} Take 1 [facility] us 1-27 tablet by ity of acidophilus 00:00: mouth 2 [facility] as 25 million 00 (two) Medical cell -100 times Branch mg captab daily. vitamin 2020-0 Yes [id number] 1000ug Take 1 Un li B-12 1,000 1-27 tablet by ity of mcg tablet 00:00: mouth [place] 00 daily. Medical Branch lactobacill 2020-0 Yes [id number] 1{tbl} Take 1 [facility] us 1-27 tablet by ity of acidophilus 00:00: mouth 2 [facility] as 25 million 00 (two) Medical cell -100 times Branch mg captab daily. vitamin 2020-0 Yes [id number] 1000ug Take 1 Un li B-12 1,000 1-27 tablet by ity of mcg tablet 00:00: mouth [place] 00 daily. Medical Branch lactobacill 2020-0 Yes [id number] 1{tbl} Take 1 [facility] us 1-27 tablet by ity of acidophilus 00:00: mouth 2 [facility] as 25 million 00 (two) Medical cell -100 times Branch mg captab daily. vitamin 2020-0 Yes [id number] 1000ug Take 1 Un li B-12 1,000 1-27 tablet by ity of mcg tablet 00:00: mouth [place] 00 daily. Medical Branch lactobacill 2020-0 Yes [id number] 1{tbl} Take 1 [facility] us 1-27 tablet by ity of acidophilus 00:00: mouth 2 [facility] as 25 million 00 (two) Medical cell -100 times Branch mg captab daily. vitamin 2020-0 Yes [id number] 1000ug Take 1 Un li B-12 1,000 1-27 tablet by ity of mcg tablet 00:00: mouth [place] 00 daily. Medical Branch lactobacill 2020-0 Yes [id number] 1{tbl} Take 1 [facility] us 1-27 tablet by ity of acidophilus 00:00: mouth 2 [facility] as 25 million 00 (two) Medical cell -100 times Branch mg captab daily. vitamin 2020-0 Yes [id number] 1000ug Take 1 Un li B-12 1,000 1-27 tablet by ity of mcg tablet 00:00: mouth [place] 00 daily. Medical Branch lactobacill 2020-0 Yes [id number] 1{tbl} Take 1 [facility] us 1-27 tablet by ity of acidophilus 00:00: mouth 2 [facility] as 25 million 00 (two) Medical cell -100 times Branch mg captab daily. vitamin 2020-0 Yes [id number] 1000ug Take 1 Un li B-12 1,000 1-27 tablet by ity of mcg tablet 00:00: mouth [place] 00 daily. Medical Branch lactobacill 2020-0 Yes [id number] 1{tbl} Take 1 [facility] us 1-27 tablet by ity of acidophilus 00:00: mouth 2 [facility] as 25 million 00 (two) Medical cell -100 times Branch mg captab daily. vitamin 2020-0 Yes [id number] 1000ug Take 1 Un li B-12 1,000 1-27 tablet by ity of mcg tablet 00:00: mouth [place] 00 daily. Medical Branch lactobacill 2020-0 Yes [id number] 1{tbl} Take 1 [facility] us 1-27 tablet by ity of acidophilus 00:00: mouth 2 [facility] as 25 million 00 (two) Medical cell -100 times Branch mg captab daily. vitamin 2020-0 Yes [id number] 1000ug Take 1 Un li B-12 1,000 1-27 tablet by ity of mcg tablet 00:00: mouth [place] 00 daily. Medical Branch lactobacill 2020-0 Yes [id number] 1{tbl} Take 1 [facility] us 1-27 tablet by ity of acidophilus 00:00: mouth 2 [facility] as 25 million 00 (two) Medical cell -100 times Branch mg captab daily. vitamin 2020-0 Yes [id number] 1000ug Take 1 Un li B-12 1,000 1-27 tablet by ity of mcg tablet 00:00: mouth [place] 00 daily. Medical Branch lactobacill 2020-0 Yes [id number] 1{tbl} Take 1 [facility] us 1-27 tablet by ity of acidophilus 00:00: mouth 2 [facility] as 25 million 00 (two) Medical cell -100 times Branch mg captab daily. vitamin 2020-0 Yes [id number] 1000ug Take 1 Un li B-12 1,000 1-27 tablet by ity of mcg tablet 00:00: mouth [place] 00 daily. Medical Branch lactobacill 2020-0 Yes [id number] 1{tbl} Take 1 [facility] us 1-27 tablet by ity of acidophilus 00:00: mouth 2 [facility] as 25 million 00 (two) Medical cell -100 times Branch mg captab daily. vitamin 2020-0 Yes [id number] 1000ug Take 1 Un li B-12 1,000 1-27 tablet by ity of mcg tablet 00:00: mouth [place] 00 daily. Medical Branch lactobacill 2020-0 Yes [id number] 1{tbl} Take 1 [facility] us 1-27 tablet by ity of acidophilus 00:00: mouth 2 [facility] as 25 million 00 (two) Medical cell -100 times Branch mg captab daily. vitamin 2020-0 Yes [id number] 1000ug Take 1 Un li B-12 1,000 1-27 tablet by ity of mcg tablet 00:00: mouth [place] 00 daily. Medical Branch lactobacill 2020-0 Yes [id number] 1{tbl} Take 1 [facility] us 1-27 tablet by ity of acidophilus 00:00: mouth 2 [facility] as 25 million 00 (two) Medical cell -100 times Branch mg captab daily. vitamin 2020-0 Yes [id number] 1000ug Take 1 Un li B-12 1,000 1-27 tablet by ity of mcg tablet 00:00: mouth [place] 00 daily. Medical Branch lactobacill 2020-0 Yes [id number] 1{tbl} Take 1 [facility] us 1-27 tablet by ity of acidophilus 00:00: mouth 2 [facility] as 25 million 00 (two) Medical cell -100 times Branch mg captab daily. vitamin 2020-0 Yes [id number] 1000ug Take 1 Un li B-12 1,000 1-27 tablet by ity of mcg tablet 00:00: mouth [place] 00 daily. Medical Branch lactobacill 2020-0 Yes [id number] 1{tbl} Take 1 [facility] us 1-27 tablet by ity of acidophilus 00:00: mouth 2 [facility] as 25 million 00 (two) Medical cell -100 times Branch mg captab daily. vitamin 2020-0 Yes [id number] 1000ug Take 1 Un li B-12 1,000 1-27 tablet by ity of mcg tablet 00:00: mouth [place] 00 daily. Medical Branch lactobacill 2020-0 Yes [id number] 1{tbl} Take 1 [facility] us 1-27 tablet by ity of acidophilus 00:00: mouth 2 [facility] as 25 million 00 (two) Medical cell -100 times Branch mg captab daily. vitamin 2020-0 Yes [id number] 1000ug Take 1 Un li B-12 1,000 1-27 tablet by ity of mcg tablet 00:00: mouth [place] 00 daily. Medical Branch lactobacill 2020-0 Yes [id number] 1{tbl} Take 1 [facility] us 1-27 tablet by ity of acidophilus 00:00: mouth 2 [facility] as 25 million 00 (two) Medical cell -100 times Branch mg captab daily. vitamin 2020-0 Yes [id number] 1000ug Take 1 Un li B-12 1,000 1-27 tablet by ity of mcg tablet 00:00: mouth [place] 00 daily. Medical Branch lactobacill 2020-0 Yes [id number] 1{tbl} Take 1 [facility] us 1-27 tablet by ity of acidophilus 00:00: mouth 2 [facility] as 25 million 00 (two) Medical cell -100 times Branch mg captab daily. vitamin 2020-0 Yes [id number] 1000ug Take 1 Un li B-12 1,000 1-27 tablet by ity of mcg tablet 00:00: mouth [place] 00 daily. Medical Branch lactobacill 2020-0 Yes [id number] 1{tbl} Take 1 [facility] us 1-27 tablet by ity of acidophilus 00:00: mouth 2 [facility] as 25 million 00 (two) Medical cell -100 times Branch mg captab daily. vitamin 2020-0 Yes [id number] 1000ug Take 1 Un li B-12 1,000 1-27 tablet by ity of mcg tablet 00:00: mouth [place] 00 daily. Medical Branch lactobacill 2020-0 Yes [id number] 1{tbl} Take 1 [facility] us 1-27 tablet by ity of acidophilus 00:00: mouth 2 [facility] as 25 million 00 (two) Medical cell -100 times Branch mg captab daily. vitamin 2020-0 Yes [id number] 1000ug Take 1 Un li B-12 1,000 1-27 tablet by ity of mcg tablet 00:00: mouth [place] 00 daily. Medical Branch lactobacill 2020-0 Yes [id number] 1{tbl} Take 1 [facility] us 1-27 tablet by ity of acidophilus 00:00: mouth 2 [facility] as 25 million 00 (two) Medical cell -100 times Branch mg captab daily. cefdinir 2019- 2020- No [id number] 600mg Take 2 U nivers 300 mg 03-06 capsules ity of capsule 00:00: 05:59 by mouth [place] 00 :00 daily for Medical 5 days. Branch cefdinir 2019-0 2020- No [id number] 600mg Take 2 U nivers 300 mg 03-06 capsules ity of capsule 00:00: 05:59 by mouth [place] 00 :00 daily for Medical 5 days. Branch cefdinir 2019-0 2020- No [id number] 600mg Take 2 U nivers 300 mg 03-06 capsules ity of capsule 00:00: 05:59 by mouth [place] 00 :00 daily for Medical 5 days. [place] cefTRIAXone 2019- No 1000mg 1,000 mg, Univers (ROCEPHIN) 03-05 IV ity of 1,000 mg in 15:00: 22:50 [place]gy[place], [place] NaCl 0.9% 00 :39 Q12H ABX, Medic al (NS) 50 mL First dose Bra [facility] MINI-BAG on [place] 03/05/19 at 0900, Until Discontinu ed, 50 mL
R margoth for Anti-Infec tive: Documented Infection< br>Documen theodora Infection Site: Urine<br&g t;Duration of Therapy: 7 days acetaminoph Yes 650mg 650 mg, Un li en 03-05 Oral, ity of (TYLENOL) 00:31: [facility] [place] tablet 650 06 Starting Medic al mg [facility] 03/04/19 at 1831, Until Discontinu ed, Routine, Pain (scale 1-3), Temp > 38.5 C doxycycline 2019- No 100mg 100 mg, IV Univers (VIBRAMYCIN 03-04 Piggyback, i ty of ) 100 mg in 21:00: 22:42 Q12H ABX, [place] NaCl 0.9% 00 :07 First dose Medi kj (NS) 100 mL on [facility] MINI-BAG 03/04/19 at 1500, Until Discontinu ed, 100 mL
R margoth for Anti-Infec tive: Documented Infection< br>Documen theodora Infection Site: Respirator y
Durat ion of Therapy: 7 days levothyroxi 2020-0 Yes 25ug 25 mcg, Uni vers ne 1-25 Oral, ity of (SYNTHROID) 12:00: QAM-0600, [place] tablet 25 00 First dose Medi kj mcg on Sat Branch 03/04/19 at 0600, Until Discontinu ed, Routine levothyroxi 2020-0 Yes 200ug 200 mcg, U nivers ne 1-25 Oral, ity of (SYNTHROID) 12:00: QAM-0600, [place] tablet 200 00 First dose Med ical mcg on Sat Branch 03/04/19 at 0600, Until Discontinu ed, Routine doxycycline 2019-0 2020- No 100mg 100 mg, IV Univers (VIBRAMYCIN 03-04 [place]gyback, i ty of ) 100 mg in 08:30: 17:54 Q12H ABX, [place] NaCl 0.9% 00 :03 First dose Medi kj (NS) 100 mL on [facility] Branch MINI-BAG 03/04/19 at 0230, Until Discontinu ed, 100 mL
R margoth for Anti-Infec tive: Documented Infection< br>Documen theodora Infection Site: Respirator y
Durat ion of Therapy: 7 days NaCl 0.9% 2020-0 2020- No 1000mL at 100 Uni vers (NS) IV 03-04- mL/hr, IV ity of infusion 07:45: 23:57 Infusion, [facility] as 1,000 mL 00 :05 CONTINUOUS Medic al , Starting Branch [facility] 03/04/19 at 0145, Until [place] 03/05/19 at 1757, Routine iohexol 2020-0 2020- No 120mL 120 mL, Unive rs (OMNIPAQUE 03-04 Intravenou it y of 350 07:30: 07:19 s, ONCE, 1 [place] BULK-100 00 :00 dose, Sat Medica l mL) 03/04/19 at Branch injection 0130, 120 mL Routine NaCl 0.9% 2020-0 2020- No 2000mL at 999 Uni vers (NS) bolus 03-04-25 mL/hr, ity of infusion 07:30: 07:30 2,000 mL, [facility] as 2,000 mL 00 :00 IV Medical Piggyback, Branch ONCE, 1 dose, 03/04/19 at 0130, STAT atorvastati 2020-0 Yes 10mg Take 10 mg [facility] n 10 mg 1-25 by mouth ity of tablet 07:23: at [place] [address] bedtime. Medical Branch Fluticasone 2020-0 Yes 1{puff} Inhale 1 [facility] -Salmeterol 1-25 Puff every it y of (ADVAIR 07:23: 12 [place] DISKUS) (twelve) Medical 100-50 hours. Branch mcg/dose inhalation disk ibandronate 2020-0 Yes 150mg Take 150 U nivers 150 mg 1-25 mg by ity of tablet 07:23: mouth once [place] [address] every Medical month. Branch Dexlansopra 2019-0 Yes Take by Uni vers zole 1-25 mouth. ity of (DEXILANT) 07:23: [place] 60 mg 47 Medical capsule Branch multivit-mi 2019-0 Yes Take by Uni vers ns 1-25 mouth ity of no.63/iron/ 07:23: daily. [place] folic 47 Medical (M-VIT Branch ORAL) levothyroxi 2020-0 Yes 200ug Take 200 U nivers ne 200 mcg 1-25 mcg by ity of tablet 07:23: mouth [place] [address] every Medical morning. Branch levothyroxi 2019-0 Yes 25ug Take 25 Uni vers ne 50 mcg 1-25 mcg by ity of tablet 07:23: mouth [place] [address] every Medical morning. Branch For total of 225 albuterol 2020-0 Yes 1{puff} Inhale 1 U nivers sulfate 1-25 Puff as ity of (PROAIR HFA 07:23: needed. [facility] as INHALE) Medical Branch IBUPROFEN 2020-0 Yes 1{tbl} Take 1 Univ ers ORAL 1-25 tablet by ity of 07:23: mouth as [place] [address] needed. Medical Branch atorvastati 2020-0 Yes 10mg Take 10 mg [facility] n 10 mg 1-25 by mouth ity of tablet 07:23: at [place] [address] bedtime. Medical Branch Fluticasone 2020-0 Yes 1{puff} Inhale 1 [facility] -Salmeterol 1-25 Puff every it y of (ADVAIR 07:23: 12 [place] DISKUS) (twelve) Medical 100-50 hours. Branch mcg/dose inhalation disk ibandronate 2020-0 Yes 150mg Take 150 U nivers 150 mg 1-25 mg by ity of tablet 07:23: mouth once [place] [address] every Medical month. Branch Dexlansopra 2019-0 Yes [...] mcg by ity of tablet 07:23: mouth [place] [address] every Medical morning. Branch levothyroxi 2019-0 Yes 25ug Take 25 Uni vers ne 50 mcg 1-25 mcg by ity of tablet 07:23: mouth [place] [address] every Medical morning. Branch For total of 225 albuterol 2019-0 Yes 1{puff} Inhale 1 U nivers sulfate 1-25 Puff as ity of (PROAIR HFA 07:23: needed. [facility] as INHALE) 47 Medical Branch IBUPROFEN 2019-0 Yes 1{tbl} Take 1 Univ ers ORAL 1-25 tablet by ity of 07:23: mouth as [place] [address] needed. Medical Branch lactobacill 2019-0 Yes 1{tbl} 1 tablet, [facility] us 1-25 Oral, BID, ity of acidophilus 05:30: First dose [place] (ACIDOPHILL 00 on Wed Medica l US) 25 03/03/19 at Branch million 2330, cell -100 Until mg captab 1 Discontinu tablet ed, Routine ondansetron 2019-0 Yes 4mg 4 mg, Slow Univers (ZOFRAN 1-25 IV Push, ity of (PF)) 05:23: Q6HPRN, [place] injection 4 27 Starting Medi kj mg Fri Branch 03/03/19 at 2323, Until Discontinu ed, Routine, Nausea and Vomiting (N/V) NaCl 0.9% 2020-0 2020- No 1000mL at 999 Uni vers (NS) bolus 1-25 01-25 mL/hr, ity of infusion 03:15: 03:54 1,000 mL, [facility] as 1,000 mL 00 :00 IV Medical Piggyback, [place] ONCE, 1 dose, 03/03/19 at 2115, STAT cefTRIAXone 2019-0 2019- No 1000mg 1,000 mg, Univers (ROCEPHIN) 03-04 IV ity of 1,000 mg in 03:00: 02:53 [place], [place] NaCl 0.9% 00 :00 ONCE, 1 Medical (NS) 50 mL dose, Fri Bran ch MINI-BAG 03/03/19 at 2100, 50 mL
Reas on for Anti-Infec tive: Documented Infection< br>Documen theodora Infection Site: Urine
D uration of Therapy: 7 days ibuprofen 2019-0 2020- No 600mg 600 mg, Uni vers (IBU) 03-04 Oral, ity of tablet 600 02:45: 01:34 ONCE, 1 [facility] as mg 00 :00 dose, Fri Medical 03/03/19 at Branch 204, JOHN levothyroxi 2019-0 Yes 25ug Take 25 Uni vers ne 50 mcg 1-24 mcg by ity of tablet 16:30: mouth [place] 10 every Medical morning. Branch For total of 225 IBUPROFEN 2019-0 Yes 1{tbl} Take 1 Univ ers ORAL 1-24 tablet by ity of 16:30: mouth as [place] 10 needed. Medical Branch levothyroxi 0 Yes 25ug Take 25 Uni vers ne 50 mcg 1-24 mcg by ity of tablet 16:30: mouth [place] 10 every Medical morning. Branch For total of 225 IBUPROFEN 2019-0 Yes 1{tbl} Take 1 Univ ers ORAL 1-24 tablet by ity of 16:30: mouth as [place] 10 needed. Medical Branch cyanocobala 2018-02 Yes [id number] 1000ug inject 1 [facility] min 0-01 mL under ity of (VITAMIN 00:00: the skin [place] B-12) 1,000 00 once every Me dical mcg/mL month. Branch injection cyanocobala 2018-02 Yes [id number] 1000ug inject 1 [facility] min 0-01 mL under ity of (VITAMIN 00:00: the skin [place] B-12) 1,000 00 once every Me dical mcg/mL month. Branch injection cyanocobala 2018-02 Yes [id number] 1000ug inject 1 [facility] min 0-01 mL under ity of (VITAMIN 00:00: the skin [place] B-12) 1,000 00 once every Me dical mcg/mL month. Branch injection cyanocobala 2018-02 Yes [id number] 1000ug inject 1 [facility] min 0-01 mL under ity of (VITAMIN 00:00: the skin [place] B-12) 1,000 00 once every Me dical mcg/mL month. Branch injection cyanocobala 2018-02 Yes [id number] 1000ug inject 1 [facility] min 0-01 mL under ity of (VITAMIN 00:00: the skin [place] B-12) 1,000 00 once every Me dical mcg/mL month. Branch injection cyanocobala 2018-02 Yes [id number] 1000ug inject 1 [facility] min 0-01 mL under ity of (VITAMIN 00:00: the skin [place] B-12) 1,000 00 once every Me dical mcg/mL month. Branch injection cyanocobala 2018-02 Yes [id number] 1000ug inject 1 [facility] min 0-01 mL under ity of (VITAMIN 00:00: the skin [place] B-12) 1,000 00 once every Me dical mcg/mL month. Branch injection cyanocobala 2018-02 Yes [id number] 1000ug inject 1 [facility] min 0-01 mL under ity of (VITAMIN 00:00: the skin [place] B-12) 1,000 00 once every Me dical mcg/mL month. Branch injection cyanocobala 2018-02 Yes [id number] 1000ug inject 1 [facility] min 0-01 mL under ity of (VITAMIN 00:00: the skin [place] B-12) 1,000 00 once every Me dical mcg/mL month. Branch injection cyanocobala 2018-02 Yes [id number] 1000ug inject 1 [facility] min 0-01 mL under ity of (VITAMIN 00:00: the skin [place] B-12) 1,000 00 once every Me dical mcg/mL month. Branch injection cyanocobala 2018-02 Yes [id number] 1000ug inject 1 [facility] min 0-01 mL under ity of (VITAMIN 00:00: the skin [place] B-12) 1,000 00 once every Me dical mcg/mL month. Branch injection cyanocobala 2018-02 Yes [id number] 1000ug inject 1 [facility] min 0-01 mL under ity of (VITAMIN 00:00: the skin [place] B-12) 1,000 00 once every Me dical mcg/mL month. Branch injection cyanocobala 2018-02 Yes [id number] 1000ug inject 1 [facility] min 0-01 mL under ity of (VITAMIN 00:00: the skin [place] B-12) 1,000 00 once every Me dical mcg/mL month. Branch injection cyanocobala 2018-02 Yes [id number] 1000ug inject 1 [facility] min 0-01 mL under ity of (VITAMIN 00:00: the skin [place] B-12) 1,000 00 once every Me dical mcg/mL month. Branch injection cyanocobala 2018-02- No [id number] 1000ug inject 1 [facility] min 0-01 01-27 mL under ity of (VITAMIN 00:00: 00:00 [place] B-12) 1,000 00 :00 once every Me dical mcg/mL month. Branch injection cyanocobala 2018-02- No [id number] 1000ug inject 1 [facility] min 0-01 01-27 mL under ity of (VITAMIN 00:00: [facility]00 [facility] 1,000 00 :00 once every [...] folic 18 Medical (M-VIT Branch ORAL) levothyroxi 2018- Yes 200ug Take 200 U nivers ne 200 mcg 9-18 mcg by ity of tablet 22:32: mouth [place] 18 every Medical morning. Branch albuterol 2018-0 Yes 1{puff} Inhale 1 U nivers sulfate 9-18 Puff as ity of (PROAIR HFA 22:32: needed. [facility] as INHALE) 18 Medical Branch FENTanyl PF 2018-0 Yes 25ug 25 mcg, Uni vers (SUBLIMAZE 9-18 Slow IV ity of (PF)) 20:33: Push, PRN [place] injection 30 - SEE Medical 25 mcg INSTRUCTIO Branch NS, 1 dose, Starting Wed10/26/18 at 1533, Until Discontinu ed, Routine, For pain scale 1-3, PACU FENTanyl PF 2018- Yes 25ug 25 mcg, Uni vers (SUBLIMAZE 9- Slow IV ity of (PF)) 20:33: Push, [place] injection 30 Q5MIN PRN, Medi kj 25 mcg 4 doses, Branch Starting 10/26/18 at 1533, Until Discontinu ed, Routine, Pain (scale 7-10), PACU FENTanyl PF 2018- Yes 25ug 25 mcg, Uni vers (SUBLIMAZE 9-18 Slow IV ity of (PF)) 20:33: Push, [place] injection 30 Q5MIN PRN, Medi kj 25 mcg 4 doses, Branch Starting Wed10/26/18 at 1533, Until Discontinu ed, Routine, Pain (scale 4-6), PACU ondansetron 2018-0 Yes 4mg 4 mg, Slow Univers (ZOFRAN 10-26 IV Push, ity of (PF)) 20:33: PRN, 1 [place] injection 4 30 dose, Medical mg Starting Branch Wed10/26/18 at 1533, Until Discontinu ed, Routine, Nausea and Vomiting (N/V), PACU sugammadex 2018-0 2019- No ONCE INTRA Univers (BRIDION) 10-2618 PROCEDURE, ity of injection 20:19: 20:35 Starting [facility] as 00 :59 Wed Medical 10/26/18 at Branch 1519, Until Wed10/26/18 at 1535, Routine, Intra-op ketorolac 2019- No ONCE INTRA U nivers (TORADOL) 10-26 PROCEDURE, ity of injection 20:16: 20:35 Starting [facility] as 00 :59 Wed Medical 10/26/18 at Branch 1516, Until 10/26/18 at 1535, Routine, Intra-op ondansetron 2019- No ONCE INTRA Univers (ZOFRAN 10-26 PROCEDURE, ity o f (PF)) 20:14: 20:35 Starting [place] injection 00 :59 [facility] Medical 10/26/18 at Branch 1514, Until 10/26/18 at 1535, Routine, Intra-op ePHEDrine 2019- No ONCE INTRA U nivers 25 mg/5 mL 10-26 PROCEDURE, it y of (5 mg/mL) 20:11: 20:35 Starting [facility] as syringe 00 :59 [facility] Medical 10/26/18 at Branch 1511, Until 10/26/18 at 1535, Routine, Intra-op bupivacaine Yes PRN, Univer s (preserv 10-26 Starting ity of free) 19:52: Wed [place] (SENSORCAIN 00 10/26/18 at [facility]) 0.25 1452, Branch % (2.5 Until mg/mL) Discontinu injection ed, Routine, Intra-op cyanocobala 2019- No 1000ug 1,000 mcg [facility] min 1,000 10-26 by ity of mcg/mL 19:46: 00:00 Intramuscu [place] injection 18 :00 lar route Medic al once every Branch month. cyanocobala 2019- No 1000ug 1,000 mcg [facility] min 1,000 10-26 by ity of mcg/mL 19:46: 00:00 Intramuscu [place] injection 18 :00 lar route Medic al once every Branch month. atorvastati Yes 10mg Take 10 mg Univers n 10 mg 10-26 by mouth ity of tablet 19:46: at [place] 14 bedtime. Medical Branch Fluticasone Yes 1{puff} Inhale 1 [facility] -Salmeterol 10-26 Puff every it y of (ADVAIR 19:46: [...] [facility] as INHALE) 14 Medical Branch IBUPROFEN Yes 1{tbl} Take 1 Univ ers ORAL 9-18 tablet by ity of 19:46: mouth as [place] 14 needed. Medical Branch phenylephri 2019- No ONCE INTRA Univers ne 1 mg/10 10-26 PROCEDURE, it y of mL in NS 19:37: 20:35 Starting [place] syringe 00 :59 [facility] Medical 10/26/18 at Branch 1437, Until Wed10/26/18 at 1535, Routine, Intra-op ceFAZolin 2018- 2019- No ONCE INTRA U nivers (ANCEF) 10-26 PROCEDURE, ity o f injection 19:25: 20:35 Starting [facility] as 00 :59 Wed Medical 10/26/18 at Branch 1425, Until Wed10/26/18 at 1535, JOHN, Intra-op rocuronium 2018- 2019- No ONCE INTRA Univers (ZEMURON) 10-26 PROCEDURE, ity of injection 18:47: 20:35 Starting [facility] as 00 :59 Wed Medical 10/26/18 at Branch 1347, Until 10/26/18 at 1535, Routine, Intra-op propofol 2019- No ONCE INTRA Un li injection 10-26 PROCEDURE, ity of 18:47: 20:35 Starting [place] 00 :59 Wed Medical 10/26/18 at Branch 1347, Until 10/26/18 at 1535, Routine, Intra-op lidocaine 2019- No ONCE INTRA U nivers 1% 10-26 PROCEDURE, ity of (XYLOCAINE) 18:47: 20:35 Starting [place] 100 mg/10 00 :59 Wed Medical mL (1 %) 10/26/18 at [facility] h injection 1347, Until Wed10/26/18 at 1535, Routine, Intra-op FENTanyl PF 2019- No ONCE INTRA Univers (SUBLIMAZE 10-26 PROCEDURE, it y of (PF)) 18:47: 20:35 Starting [place] injection 00 :59 Wed Medical 10/26/18 at Branch 1347, Until 10/26/18 at 1535, Routine, Intra-op dexamethaso 2019- No ONCE INTRA Univers ne 10-26 PROCEDURE, ity of (DECADRON 18:45: 20:35 Starting [facility] as PHOSPHATE) 00 :59 Wed Medical injection 10/26/18 at [facility] 1345, Until 10/26/18 at 1535, Routine, Intra-op lactated 2019- No 1000mL at 20 Unive rs ringers IV 10-26 mL/hr, ity of infusion 16:15: 18:42 1,000 mL, [facility] as 1,000 mL 00 :00 IV Medical Infusion, Branch ONCE, 1 dose, Wed10/26/18 at 1115, Routine, DSU Pre-op lactated 2019- No 1000mL at 20 Unive rs ringers IV 10-26 mL/hr, ity of infusion 16:15: 16:32 1,000 mL, [facility] as 1,000 mL 00 :00 IV Medical Infusion, Branch ONCE, 1 dose, 10/26/18 at 1115, Routine, DSU Pre-op atorvastati 2018- Yes 10mg Take 10 mg Univers n 10 mg 9-18 by mouth ity of tablet 16:07: at [place] 17 bedtime. Medical Branch Fluticasone Yes 1{puff} Inhale 1 Univers -Salmeterol 9-18 Puff every it y of (ADVAIR 16:07: 12 [place] DISKUS) 17 (twelve) Medical 100-50 hours. Branch mcg/dose inhalation disk ibandronate 2018- Yes 150mg Take 150 U nivers 150 mg 9-18 mg by ity of tablet 16:07: mouth once [place] 17 every Medical month. Branch Dexlansopra Yes Take by Uni vers zole 9-18 mouth. ity of (DEXILANT) 16:07: [place] 60 mg 17 Medical capsule Branch multivit-mi Yes Take by Uni vers ns 9-18 mouth ity of no.63/iron/ 16:07: daily. [place] folic 17 Medical (M-VIT Branch ORAL) levothyroxi Yes 200ug Take 200 U nivers ne 200 mcg 9-18 mcg by ity of tablet 16:07: mouth [place] 17 every Medical morning. Branch levothyroxi Yes 25ug Take 25 Uni vers ne 50 mcg 9-18 mcg by ity of tablet 16:07: mouth [place] 17 every Medical morning. Branch For total of 225 albuterol Yes 1{puff} Inhale 1 U nivers sulfate 9-18 Puff as ity of (PROAIR HFA 16:07: needed. [facility] as INHALE) 17 Medical Branch cyanocobala Yes 1000ug 1,000 mcg Univers min 1,000 9-18 by ity of mcg/mL 16:07: Intramuscu [place] injection 17 lar route Medic al once every Branch month. IBUPROFEN 2019-0 Yes 1{tbl} Take 1 Univ ers ORAL 9-18 tablet by ity of 16:07: mouth as [place] 17 needed. Medical Branch bisacodyl 5 2018- Yes [id number] 5mg Take 1 Univers mg EC 9-18 tablet by ity of tablet 00:00: mouth once [place] 00 daily as Medical needed for Branch Constipati on. traMADol 50 2018- Yes [id number] 50mg Take 1 Univers mg tablet 9-18 tablet by ity o f 00:00: mouth [place] 00 every 6 Medical (six) Branch hours as needed for Pain (scale 7-10). bisacodyl 5 2019-0 Yes [id number] 5mg Take 1 Univers mg EC 9-18 tablet by ity of tablet 00:00: mouth once [place] 00 daily as Medical needed for Branch Constipati on. traMADol 50 2019-0 Yes [id number] 50mg Take 1 [facility] mg tablet 9-18 tablet by ity o f 00:00: mouth [place] 00 every 6 Medical (six) Branch hours as needed for Pain (scale 7-10). bisacodyl 5 2019-0 Yes [id number] 5mg Take 1 [facility] mg EC 9-18 tablet by ity of tablet 00:00: mouth once [place] 00 daily as Medical needed for Branch Constipati on. traMADol 50 2018-0 Yes [id number] 50mg Take 1 [facility] mg tablet 9-18 tablet by ity o f 00:00: mouth [place] 00 every 6 Medical (six) Branch hours as needed for Pain (scale 7-10). bisacodyl 5 2018-0 Yes [id number] 5mg Take 1 [facility] mg EC 9-18 tablet by ity of tablet 00:00: mouth once [place] 00 daily as Medical needed for Branch Constipati on. traMADol 50 2018-0 Yes [id number] 50mg Take 1 Univers mg tablet 9-18 tablet by ity o f 00:00: mouth [place] 00 every 6 Medical (six) Branch hours as needed for Pain (scale 7-10). bisacodyl 5 2018-0 Yes [id number] 5mg Take 1 Univers mg EC 9-18 tablet by ity of tablet 00:00: mouth once [place] 00 daily as Medical needed for Branch Constipati on. traMADol 50 2019-0 Yes [id number] 50mg Take 1 Univers mg tablet 9-18 tablet by ity o f 00:00: mouth [place] 00 every 6 Medical (six) Branch hours as needed for Pain (scale 7-10). bisacodyl 5 2019-0 Yes [id number] 5mg Take 1 Univers mg EC 9-18 tablet by ity of tablet 00:00: mouth once [place] 00 daily as Medical needed for Branch Constipati on. traMADol 50 2019-0 Yes [id number] 50mg Take 1 Univers mg tablet 9-18 tablet by ity o f 00:00: mouth [place] 00 every 6 Medical (six) Branch hours as needed for Pain (scale 7-10). bisacodyl 5 2019-0 Yes [id number] 5mg Take 1 Univers mg EC 9-18 tablet by ity of tablet 00:00: mouth once [place] 00 daily as Medical needed for Branch Constipati on. traMADol 50 2019-0 Yes [id number] 50mg Take 1 Univers mg tablet 9-18 tablet by ity o f 00:00: mouth [place] 00 every 6 Medical (six) Branch hours as needed for Pain (scale 7-10). bisacodyl 5 2019-0 Yes [id number] 5mg Take 1 [facility] mg EC 9-18 tablet by ity of tablet 00:00: mouth once [place] 00 daily as Medical needed for Branch Constipati on. traMADol 50 2019-0 Yes [id number] 50mg Take 1 Univers mg tablet 9-18 tablet by ity o f 00:00: mouth [place] 00 every 6 Medical (six) Branch hours as needed for Pain (scale 7-10). bisacodyl 5 2018-0 Yes [id number] 5mg Take 1 Univers mg EC 9-18 tablet by ity of tablet 00:00: mouth once [place] 00 daily as Medical needed for Branch Constipati on. traMADol 50 2018-0 Yes [id number] 50mg Take 1 Univers mg tablet 9-18 tablet by ity o f 00:00: mouth [place] 00 every 6 Medical (six) Branch hours as needed for Pain (scale 7-10). bisacodyl 5 2018-0 Yes [id number] 5mg Take 1 Univers mg EC 9-18 tablet by ity of tablet 00:00: mouth once [place] 00 daily as Medical needed for Branch Constipati on. traMADol 50 2018-0 Yes [id number] 50mg Take 1 Univers mg tablet 9-18 tablet by ity o f 00:00: mouth [place] 00 every 6 Medical (six) Branch hours as needed for Pain (scale 7-10). bisacodyl 5 2019-0 Yes [id number] 5mg Take 1 Univers mg EC 9-18 tablet by ity of tablet 00:00: mouth once [place] 00 daily as Medical needed for Branch Constipati on. traMADol 50 2019-0 Yes [id number] 50mg Take 1 Univers mg tablet 9-18 tablet by ity o f 00:00: mouth [place] 00 every 6 Medical (six) Branch hours as needed for Pain (scale 7-10). bisacodyl 5 2019-0 Yes [id number] 5mg Take 1 Univers mg EC 9-18 tablet by ity of tablet 00:00: mouth once [place] 00 daily as Medical needed for Branch Constipati on. traMADol 50 2019-0 Yes [id number] 50mg Take 1 Univers mg tablet 9-18 tablet by ity o f 00:00: mouth [place] 00 every 6 Medical (six) Branch hours as needed for Pain (scale 7-10). bisacodyl 5 2019-0 Yes [id number] 5mg Take 1 [facility] mg EC 9-18 tablet by ity of tablet 00:00: mouth once [place] 00 daily as Medical needed for Branch Constipati on. traMADol 50 2019-0 Yes [id number] 50mg Take 1 Univers mg tablet 9-18 tablet by ity o f 00:00: mouth [place] 00 every 6 Medical (six) Branch hours as needed for Pain (scale 7-10). bisacodyl 5 2018-0 Yes [id number] 5mg Take 1 Univers mg EC 9-18 tablet by ity of tablet 00:00: mouth once [place] 00 daily as Medical needed for Branch Constipati on. traMADol 50 2018-0 Yes [id number] 50mg Take 1 Univers mg tablet 9-18 tablet by ity o f 00:00: mouth [place] 00 every 6 Medical (six) Branch hours as needed for Pain (scale 7-10). bisacodyl 5 2018-0 Yes [id number] 5mg Take 1 Univers mg EC 9-18 tablet by ity of tablet 00:00: mouth once [place] 00 daily as Medical needed for Branch Constipati on. traMADol 50 2018-0 Yes [id number] 50mg Take 1 Univers mg tablet 9-18 tablet by ity o f 00:00: mouth [place] 00 every 6 Medical (six) Branch hours as needed for Pain (scale 7-10). bisacodyl 5 2019-0 Yes [id number] 5mg Take 1 Univers mg EC 9-18 tablet by ity of tablet 00:00: mouth once [place] 00 daily as Medical needed for Branch Constipati on. traMADol 50 2019-0 Yes [id number] 50mg Take 1 Univers mg tablet 9-18 tablet by ity o f 00:00: mouth [place] 00 every 6 Medical (six) Branch hours as needed for Pain (scale 7-10). bisacodyl 5 2019-0 Yes [id number] 5mg Take 1 Univers mg EC 9-18 tablet by ity of tablet 00:00: mouth once [place] 00 daily as Medical needed for Branch Constipati on. traMADol 50 2019-0 Yes [id number] 50mg Take 1 Univers mg tablet 9-18 tablet by ity o f 00:00: mouth [place] 00 every 6 Medical (six) Branch hours as needed for Pain (scale 7-10). bisacodyl 5 2018- Yes [id number] 5mg Take 1 Univers mg EC 9-18 tablet by ity of tablet 00:00: mouth once [place] 00 daily as Medical needed for Branch Constipati on. traMADol 50 2019-0 Yes [id number] 50mg Take 1 Univers mg tablet 9-18 tablet by ity o f 00:00: mouth [place] 00 every 6 Medical (six) Branch hours as needed for Pain (scale 7-10). bisacodyl 5 Yes [id number] 5mg Take 1 Univers mg EC 9-18 tablet by ity of tablet 00:00: mouth once [place] 00 daily as Medical needed for Branch Constipati on. bisacodyl 5 Yes [id number] 5mg Take 1 Univers mg EC 9-18 tablet by ity of tablet 00:00: mouth once [place] 00 daily as Medical needed for Branch Constipati on. bisacodyl 5 Yes [id number] 5mg Take 1 Univers mg EC 9-18 tablet by ity of tablet 00:00: mouth once [place] 00 daily as Medical needed for Branch Constipati on. bisacodyl 5 Yes [id number] 5mg Take 1 Univers mg EC 9-18 tablet by ity of tablet 00:00: mouth once [place] 00 daily as Medical needed for Branch Constipati on. bisacodyl 5 Yes [id number] 5mg Take 1 Univers mg EC 9-18 tablet by ity of tablet 00:00: mouth once [place] 00 daily as Medical needed for Branch Constipati on. bisacodyl 5 Yes [id number] 5mg Take 1 Univers mg EC 9-18 tablet by ity of tablet 00:00: mouth once [place] 00 daily as Medical needed for Branch Constipati on. bisacodyl 5 Yes [id number] 5mg Take 1 Univers mg EC 9-18 tablet by ity of tablet 00:00: mouth once [place] 00 daily as Medical needed for Branch Constipati on. bisacodyl 5 Yes [id number] 5mg Take 1 Univers mg EC 9-18 tablet by ity of tablet 00:00: mouth once [place] 00 daily as Medical needed for Branch Constipati on. bisacodyl 5 2018- Yes [id number] 5mg Take 1 Univers mg EC 9-18 tablet by ity of tablet 00:00: mouth once [place] 00 daily as Medical needed for Branch Constipati on. bisacodyl 5 Yes [id number] 5mg Take 1 Univers mg EC 9-18 tablet by ity of tablet 00:00: mouth once [place] 00 daily as Medical needed for Branch Constipati on. traMADol 50 2021- No [id number] 50mg Take 1 Univers mg tablet 9-18 -27 tablet by ity of 00:00: 00:00 mouth [place] 00 :00 every 6 Medical (six) Branch hours as needed for Pain (scale 7-10). cyanocobala Yes [id number] 1000ug inject 1 Univers min 7-23 mL under ity of (VITAMIN 00:00: the skin [place] B-12) 1,000 00 every 14 Medi kj mcg/mL (fourteen) Branch injection days. cyanocobala Yes [id number] 1000ug inject 1 Univers min 7-23 mL under ity of (VITAMIN 00:00: the skin [place] B-12) 1,000 00 every 14 Medi kj mcg/mL (fourteen) Branch injection days. cyanocobala Yes [id number] 1000ug inject 1 Univers min 7-23 mL under ity of (VITAMIN 00:00: the skin [place] B-12) 1,000 00 every 14 Medi kj mcg/mL (fourteen) Branch injection days. cyanocobala Yes [id number] 1000ug inject 1 Univers min 7-23 mL under ity of (VITAMIN 00:00: the skin [place] B-12) 1,000 00 every 14 Medi kj mcg/mL (fourteen) Branch injection days. cyanocobala Yes [id number] 1000ug inject 1 Univers min 7-23 mL under ity of (VITAMIN 00:00: the skin [place] B-12) 1,000 00 every 14 Medi kj mcg/mL (fourteen) Branch injection days. cyanocobala Yes [id number] 1000ug inject 1 Univers min 7-23 mL under ity of (VITAMIN 00:00: the skin [place] B-12) 1,000 00 every 14 Medi kj mcg/mL (fourteen) Branch injection days. cyanocobala 2018-0 Yes [id number] 1000ug inject 1 Univers min 7-23 mL under ity of (VITAMIN 00:00: the skin [place] B-12) 1,000 00 every 14 Medi kj mcg/mL (fourteen) Branch injection days. cyanocobala 2018-0 Yes [id number] 1000ug inject 1 Univers min 7-23 mL under ity of (VITAMIN 00:00: the skin [place] B-12) 1,000 00 every 14 Medi kj mcg/mL (fourteen) Branch injection days. cyanocobala 2018- Yes [id number] 1000ug inject 1 Univers min 7-23 mL under ity of (VITAMIN 00:00: the skin [place] B-12) 1,000 00 every 14 Medi kj mcg/mL (fourteen) Branch injection days. cyanocobala 2018- Yes [id number] 1000ug inject 1 Univers min 7-23 mL under ity of (VITAMIN 00:00: the skin [place] B-12) 1,000 00 every 14 Medi kj mcg/mL (fourteen) Branch injection days. cyanocobala Yes [id number] 1000ug inject 1 Univers min 7-23 mL under ity of (VITAMIN 00:00: the skin [place] B-12) 1,000 00 every 14 Medi kj mcg/mL (fourteen) Branch injection days. cyanocobala 2018- Yes [id number] 1000ug inject 1 Univers min 7-23 mL under ity of (VITAMIN 00:00: the skin [place] B-12) 1,000 00 every 14 Medi kj mcg/mL (fourteen) Branch injection days. cyanocobala 2018-0 Yes [id number] 1000ug inject 1 Univers min 7-23 mL under ity of (VITAMIN 00:00: the skin [place] B-12) 1,000 00 every 14 Medi kj mcg/mL (fourteen) Branch injection days. cyanocobala 2018-0 Yes [id number] 1000ug inject 1 Univers min 7-23 mL under ity of (VITAMIN 00:00: the skin [place] B-12) 1,000 00 every 14 Medi kj mcg/mL (fourteen) Branch injection days. cyanocobala 2019-0 2020- No [id number] 1000ug inject 1 [facility] min 7-23 01-27 mL under ity of (VITAMIN 00:00: 00:00 [place] B-12) 1,000 00 :00 every 14 Medi kj mcg/mL (fourteen) Branch injection days. cyanocobala 2019- No [id number] 1000ug inject 1 Univers min 7-23 -27 mL under ity of (VITAMIN 00:00: 00:00 [...] [facility] as INHALE) 21 Medical Branch levothyroxi Yes 25ug Take 25 Uni [...] Branch For total of 225 levothyroxi Yes 200ug Take 200 U nivers ne 200 mcg 7-22 mcg by ity of tablet 16:28: mouth [place] 25 every Medical morning. Branch levothyroxi Yes 200ug Take 200 U nivers ne 200 mcg 7-22 mcg by ity of tablet 16:28: mouth [place] 25 every Medical morning. Branch levothyroxi Yes 200ug Take 200 U nivers ne 200 mcg 7-22 mcg by ity of tablet 16:28: mouth [place] 25 every Medical morning. Branch levothyroxi Yes 200ug Take 200 U nivers ne 200 mcg 7-22 mcg by ity of tablet 16:28: mouth [place] 25 every Medical morning. Branch levothyroxi Yes 200ug Take 200 U nivers ne 200 mcg 7-22 mcg by ity of tablet 16:28: mouth [place] 25 every Medical morning. Branch levothyroxi Yes 200ug Take 200 U nivers ne 200 mcg 7-22 mcg by ity of tablet 16:28: mouth [place] 25 every Medical morning. Branch Nitrofurant Yes [id number] 100mg Take 1 Univers oin&Nit. 5-14 capsule by ity o f Macrocryst 00:00: mouth 2 [place] (MACROBID) 00 (two) Medical 100 mg times Branch capsule daily. For 3 days prn UTi symptoms Nitrofurant 2018- Yes [id number] 100mg Take 1 Univers oin&Nit. 5-14 capsule by ity o f Macrocryst 00:00: mouth 2 [place] (MACROBID) 00 (two) Medical 100 mg times Branch capsule daily. For 3 days prn UTi symptoms Nitrofurant 2019- Yes [id number] 100mg Take 1 Univers oin&Nit. 5-14 capsule by ity o f Macrocryst 00:00: mouth 2 [place] (MACROBID) 00 (two) Medical 100 mg times Branch capsule daily. For 3 days prn UTi symptoms Nitrofurant 2019- Yes [id number] 100mg Take 1 Univers oin&Nit. 5-14 capsule by ity o f Macrocryst 00:00: mouth 2 [place] (MACROBID) 00 (two) Medical 100 mg times Branch capsule daily. For 3 days prn UTi symptoms Nitrofurant 2018- Yes [id number] 100mg Take 1 Univers oin&Nit. 5-14 capsule by ity o f Macrocryst 00:00: mouth 2 [place] (MACROBID) 00 (two) Medical 100 mg times Branch capsule daily. For 3 days prn UTi symptoms Nitrofurant 2018- Yes [id number] 100mg Take 1 Univers oin&Nit. 5-14 capsule by ity o f Macrocryst 00:00: mouth 2 [place] (MACROBID) 00 (two) Medical 100 mg times Branch capsule daily. For 3 days prn UTi symptoms Nitrofurant 2018- Yes [id number] 100mg Take 1 Univers oin&Nit. 5-14 capsule by ity o f Macrocryst 00:00: mouth 2 [place] (MACROBID) 00 (two) Medical 100 mg times Branch capsule daily. For 3 days prn UTi symptoms Nitrofurant Yes [id number] 100mg Take 1 Univers oin&Nit. 5-14 capsule by ity o f Macrocryst 00:00: mouth 2 [place] (MACROBID) 00 (two) Medical 100 mg times Branch capsule daily. For 3 days prn UTi symptoms Nitrofurant 2018- Yes [id number] 100mg Take 1 Univers oin&Nit. 5-14 capsule by ity o f Macrocryst 00:00: mouth 2 [place] (MACROBID) 00 (two) Medical 100 mg times Branch capsule daily. For 3 days prn UTi symptoms Nitrofurant 2018-0 Yes [id number] 100mg Take 1 Univers oin&Nit. 5-14 capsule by ity o f Macrocryst 00:00: mouth 2 [place] (MACROBID) 00 (two) Medical 100 mg times Branch capsule daily. For 3 days prn UTi symptoms Nitrofurant 2019-0 Yes [id number] 100mg Take 1 Univers oin&Nit. 5-14 capsule by ity o f Macrocryst 00:00: mouth 2 [place] (MACROBID) 00 (two) Medical 100 mg times Branch capsule daily. For 3 days prn UTi symptoms Nitrofurant Yes [id number] 100mg Take 1 Univers oin&Nit. 5-14 capsule by ity o f Macrocryst 00:00: mouth 2 [place] (MACROBID) 00 (two) Medical 100 mg times Branch capsule daily. For 3 days prn UTi symptoms Nitrofurant Yes [id number] 100mg Take 1 Univers oin&Nit. 5-14 capsule by ity o f Macrocryst 00:00: mouth 2 [place] (MACROBID) 00 (two) Medical 100 mg times Branch capsule daily. For 3 days prn UTi symptoms Nitrofurant Yes [id number] 100mg Take 1 Univers oin&Nit. 5-14 capsule by ity o f Macrocryst 00:00: mouth 2 [place] (MACROBID) 00 (two) Medical 100 mg times Branch capsule daily. For 3 days prn UTi symptoms Nitrofurant 2020- No [id number] 100mg Take 1 Univers oin&Nit. 5-14 -27 capsule by ity of Macrocryst 00:00: 00:00 mouth 2 [facility] as (MACROBID) 00 :00 (two) Medical 100 mg times Branch capsule daily. For 3 days prn UTi symptoms Nitrofurant 2020- No [id number] 100mg Take 1 Univers oin&Nit. 5-14 -27 capsule by ity of Macrocryst 00:00: 00:00 mouth 2 [facility] as (MACROBID) 00 :00 (two) Medical 100 mg times Branch capsule daily. For 3 days prn UTi symptoms Fluticasone 2018-0 Yes 1{puff} Inhale 1 Univers -Salmeterol 4-23 Puff every it y of (ADVAIR 15:59: 12 [place] DISKUS) 28 (twelve) Medical 100-50 hours. Branch mcg/dose inhalation disk Fluticasone 2019-0 Yes 1{puff} Inhale 1 Univers -Salmeterol 4-23 Puff every it y of (ADVAIR 15:59: 12 [place] DISKUS) 28 (twelve) Medical 100-50 hours. Branch mcg/dose inhalation disk Fluticasone 2019-0 Yes 1{puff} Inhale 1 Univers -Salmeterol 4-23 Puff every it y of (ADVAIR 15:59: 12 [place] DISKUS) 28 (twelve) Medical 100-50 hours. Branch mcg/dose inhalation disk Fluticasone 2018-0 Yes 1{puff} Inhale 1 Univers -Salmeterol 4-23 Puff every it y of (ADVAIR 15:59: 12 [place] DISKUS) 28 (twelve) Medical 100-50 hours. Branch mcg/dose inhalation disk Fluticasone 2018-0 Yes 1{puff} Inhale 1 Univers -Salmeterol 4-23 Puff every it y of (ADVAIR 15:59: 12 [place] DISKUS) 28 (twelve) Medical 100-50 hours. Branch mcg/dose inhalation disk Fluticasone 2018-0 Yes 1{puff} Inhale 1 Univers -Salmeterol 4-23 [...] folic 11 Medical (M-VIT Branch ORAL) multivit-mi 2017- Yes Take by Uni vers ns 2-21 mouth ity of no.63/iron/ 18:30: daily. [place] folic 11 Medical (M-VIT Branch ORAL) multivit-mi 2017- Yes Take by Uni vers ns 2-21 [...] by mouth ity of tablet 20:55: at [place] [address] bedtime. Medical Branch ibandronate 2017-02 Yes 150mg Take 150 U nivers 150 mg 2-16 mg by ity of tablet 20:55: mouth once [place] [address] every Medical month. Branch Dexlansopra 2017-02 Yes Take by Uni vers zole 2-16 mouth. ity of (DEXILANT) 20:55: [place] 60 mg 51 Medical capsule Branch atorvastati 2017-02 Yes 10mg Take 10 mg Univers n 10 mg 2-16 by mouth ity of tablet 20:55: at [place] [address] bedtime. Medical Branch ibandronate 2017-02 Yes 150mg Take 150 U nivers 150 mg 2-16 mg by ity of tablet 20:55: mouth once [place] [address] every Medical month. Branch Dexlansopra 2017-02 Yes Take by Uni vers zole 2-16 mouth. ity of (DEXILANT) 20:55: [place] 60 mg 51 Medical capsule Branch atorvastati 2017-02 Yes 10mg Take 10 mg Univers n 10 mg 2-16 by mouth ity of tablet 20:55: at [place] [address] bedtime. Medical Branch ibandronate 2017-02 Yes 150mg Take 150 U nivers 150 mg 2-16 mg by ity of tablet 20:55: mouth once [place] [address] every Medical month. Branch Dexlansopra 2017-02 Yes Take by Uni vers zole 2-16 mouth. ity of (DEXILANT) 20:55: [place] 60 mg 51 Medical capsule Branch atorvastati 2017-02 Yes 10mg Take 10 mg Univers n 10 mg 2-16 by mouth ity of tablet 20:55: at [place] [address] bedtime. Medical Branch ibandronate 2017-02 Yes 150mg Take 150 U nivers 150 mg 2-16 mg by ity of tablet 20:55: mouth once [place] [address] every Medical month. Branch Dexlansopra 2017-02 Yes Take by Uni vers zole 2-16 mouth. ity of (DEXILANT) 20:55: [place] 60 mg 51 Medical capsule Branch atorvastati 2017-02 Yes 10mg Take 10 mg Univers n 10 mg 2-16 by mouth ity of tablet 20:55: at [place] bedtime. Medical Branch ibandronate 2017-02 Yes 150mg Take 150 U nivers 150 mg 2-16 mg by ity of tablet 20:55: mouth once [place] [address] every Medical month. Branch Dexlansopra 2017-02 Yes Take by Uni vers zole 2-16 mouth. ity of (DEXILANT) 20:55: [place] 60 mg 51 Medical capsule Branch atorvastati 2017-02 Yes 10mg Take 10 mg Univers n 10 mg 2-16 by mouth ity of tablet 20:55: at [place] [address] bedtime. Medical Branch ibandronate 2017-02 Yes 150mg Take 150 U nivers 150 mg 2-16 mg by ity of tablet 20:55: mouth once [place] [address] every Medical month. Branch Dexlansopra 2017-02 Yes Take by Uni vers zole 2-16 mouth. ity of (DEXILANT) 20:55: [place] 60 mg 51 Medical capsule Branch Vitamin B Vitamin B Yes [place] as Comm on 12 12 [place] directed [facility] Boniva Boniva Yes [place] 1 tablet Common [facility] Dexilant Dexilant Yes [place] 1 capsule C ommon [facility] Caltrate Caltrate Yes [place] 1 tablet Co mmon 600+D3 600+D3 [place] with a Spiri t meal [facility] Levothyroxi Levothyroxi Yes [place] 1 tablet Common ne Sodium ne Sodium [place] in the [facility] morning on - [facility] an empty [facility] Rosuvastati Rosuvastati Yes [place] 1 tablet Common n Calcium n Calcium [place] S pirit [facility] Nitrofurant Nitrofurant Yes [place] 1 capsule Common oin oin [place] with food Spirit Macrocrysta Macrocrysta or milk - [facility] l l [facility] Advair Advair Yes [place] 1 puff Common Diskus Diskus [facility] Dexilant 60 Dexilant 60 No 1{capsu QD [...] Immunizations Ordered Filled Immunization Date Status Comments [facility] e Immunization Name Name SARS-COV-2 COVID-19 2020-04-23 Completed Unive rsity of PFIZER VACCINE 00:00:00 [facility] Branch SARS-COV-2 COVID-19 2020-04-23 Completed Unive rsity of PFIZER VACCINE 00:00:00 [facility] SARS-COV-2 COVID-19 2020-04-23 Completed Unive rsity of PFIZER VACCINE 00:00:00 [facility] SARS-COV-2 COVID-19 2020-04-23 Completed Unive rsity of PFIZER VACCINE 00:00:00 [facility] SARS-COV-2 COVID-19 2020-04-23 Completed Unive rsity of PFIZER VACCINE 00:00:00 [facility] SARS-COV-2 COVID-19 2020-04-23 Completed Unive rsity of PFIZER VACCINE 00:00:00 [facility] SARS-COV-2 COVID-19 2020-04-23 Completed Unive rsity of PFIZER VACCINE 00:00:00 [facility] SARS-COV-2 COVID-19 2020-04-23 Completed Unive rsity of PFIZER VACCINE 00:00:00 [facility] SARS-COV-2 COVID-19 2020-04-23 Completed Unive rsity of PFIZER VACCINE 00:00:00 [facility] SARS-COV-2 COVID-19 2020-04-23 Completed Unive rsity of PFIZER VACCINE 00:00:00 [facility] SARS-COV-2 COVID-19 2020-04-02 Completed Unive rsity of PFIZER VACCINE 00:00:00 [facility] SARS-COV-2 COVID-19 2020-04-02 Completed Unive rsity of PFIZER VACCINE 00:00:00 [facility] SARS-COV-2 COVID-19 2020-04-02 Completed Unive rsity of PFIZER VACCINE 00:00:00 [facility] SARS-COV-2 COVID-19 2020-04-02 Completed Unive rsity of PFIZER VACCINE 00:00:00 [facility] SARS-COV-2 COVID-19 2020-04-02 Completed Unive rsity of PFIZER VACCINE 00:00:00 [facility] SARS-COV-2 COVID-19 2020-04-02 Completed Unive rsity of PFIZER VACCINE 00:00:00 [facility] SARS-COV-2 COVID-19 2020-04-02 Completed Unive rsity of PFIZER VACCINE 00:00:00 [facility] SARS-COV-2 COVID-19 2020-04-02 Completed Unive rsity of PFIZER VACCINE 00:00:00 [facility] SARS-COV-2 COVID-19 2020-04-02 Completed Unive rsity of PFIZER VACCINE 00:00:00 [facility] SARS-COV-2 COVID-19 2020-04-02 Completed Unive rsity of PFIZER VACCINE 00:00:00 [facility] Influenza High Dose 2019-03-06 Completed Unive rsity of 00:00:00 [facility] Influenza High Dose 2019-03-06 Completed Unive rsity of 00:00:00 [facility] Influenza High Dose 2019-03-06 Completed Unive rsity of 00:00:00 [facility] Influenza High Dose 2019-03-06 Completed Unive rsity of 00:00:00 [facility] Influenza High Dose 2019-03-06 Completed Unive rsity of 00:00:00 [facility] Influenza High Dose 2019-03-06 Completed Unive rsity of 00:00:00 [facility] Influenza High Dose 2019-03-06 Completed Unive rsity of 00:00:00 [facility] Influenza High Dose 2019-03-06 Completed Unive rsity of 00:00:00 [facility] Influenza High Dose 2019-03-06 Completed Unive rsity of 00:00:00 [facility] Influenza High Dose 2019-03-06 Completed Unive rsity of 00:00:00 [facility] Influenza High Dose 2019-03-06 Completed Unive rsity of 00:00:00 [facility] Influenza High Dose 2019-03-06 Completed Unive rsity of 00:00:00 [facility] Influenza High Dose 2019-03-06 Completed Unive rsity of 00:00:00 [facility] Influenza High Dose 2019-03-06 Completed Unive rsity of 00:00:00 [facility] Influenza High Dose 2019-03-06 Completed Unive rsity of 00:00:00 [facility] Influenza High Dose 2019-03-06 Completed Unive rsity of 00:00:00 [facility] Influenza High Dose 2019-03-06 Completed Unive rsity of 00:00:00 [facility] Influenza High Dose 2019-03-06 Completed Unive rsity of 00:00:00 [facility] Influenza High Dose 2019-03-06 Completed Unive rsity of 00:00:00 [facility] Influenza High Dose 2019-03-06 Completed [facility]ive rsity of 00:00:00 [facility] Influenza High Dose 2019-03-06 Completed [facility] rsity of 00:00:00 [facility] TD, NOS 2015-07-31 Completed [facility] 00:00:00 [facility] Td 2015-07-31 Completed [facility] of 00:00:00 [facility] TD, NOS 2015-07-31 Completed [facility] 00:00:00 [facility] Branch Td 2015-07-31 Completed University of 00:00:00 [facility] Td 2015-07-31 Completed [facility] of 00:00:00 [facility] Td 2015-07-31 Completed University of 00:00:00 [facility] Td 2015-07-31 Completed [facility] of 00:00:00 [facility] Td 2015-07-31 Completed [facility] of 00:00:00 [facility] Td 2015-07-31 Completed University of 00:00:00 [facility] Td 2015-07-31 Completed [facility] of 00:00:00 [facility] Td 2015-07-31 Completed [facility] of 00:00:00 [facility] Td 2015-07-31 Completed [facility] of 00:00:00 [facility] Td 2015-07-31 Completed University of 00:00:00 [facility] Td 2015-07-31 Completed University of 00:00:00 [facility] Td 2015-07-31 Completed [facility] of 00:00:00 [facility] Td 2015-07-31 Completed [facility] of 00:00:00 [facility] Td 2015-07-31 Completed University of 00:00:00 [facility] Td 2015-07-31 Completed University of 00:00:00 [facility] Td 2015-07-31 Completed [facility] of 00:00:00 [facility] TD, NOS 2015-07-31 Completed [facility] of 00:00:00 [facility] Vital Signs Vital Name Observation Time Observation Value Comments Source Systolic blood 2022-04-23 17:39:00 122 mm[Hg] Univer sity of pressure [facility] Diastolic blood 2022-04-23 17:39:00 49 mm[Hg] Unive rsity of pressure [facility] Heart rate 2022-04-23 17:39:00 67 /min [facility] Respiratory rate 2022-04-23 17:39:00 19 /min [facility] Oxygen saturation in 2022-04-23 17:39:00 96 /min [facility] Arterial blood by [facility] Pulse oximetry Branch Body temperature 2022-04-23 15:47:00 36.83 Grace [facility] height 2022-04-23 15:47:00 170.2 cm [facility] Body weight 2022-04-23 15:47:00 92.08 kg [facility] BMI 2022-04-23 15:47:00 31.79 kg/m2 [facility] Systolic blood 2022-03-09 17:39:00 123 mm[Hg] [facility] pressure [facility] Diastolic blood 2022-03-09 17:39:00 77 mm[Hg] [facility] Heart rate 2022-03-09 17:39:00 85 /min [facility] Body temperature 2022-03-09 17:39:00 37.28 Grace [facility] Respiratory rate 2022-03-09 17:39:00 18 /min [facility] Body weight 2022-03-09 17:39:00 95.255 kg [facility] BMI 2022-03-09 17:39:00 33.89 kg/m2 [facility] Oxygen saturation in 2022-03-09 17:39:00 98 /min [facility] Arterial blood by [place] [facility] Pulse oximetry Branch Systolic blood 2022-02-21 03:01:00 148 mm[Hg] [facility] pressure [facility] Diastolic blood 2022-02-21 03:01:00 73 mm[Hg] [facility] pressure [facility] Heart rate 2022-02-21 03:01:00 78 /min [facility] Body temperature 2022-02-21 03:01:00 37.11 Grace [facility] Respiratory rate 2022-02-21 03:01:00 16 /min [facility] Body weight 2022-02-21 03:01:00 95.255 kg [facility] BMI 2022-02-21 03:01:00 33.89 kg/m2 [facility] Oxygen saturation in 2022-02-21 03:01:00 98 /min [facility] Arterial blood by [facility] Pulse oximetry Branch Systolic blood 2021-04-07 21:34:00 128 mm[Hg] [facility] pressure [facility] Diastolic blood 2021-04-07 21:34:00 50 mm[Hg] [facility] pressure [facility] Heart rate 2021-04-07 21:34:00 69 /min [facility] Body height 2021-04-07 21:34:00 167.6 cm [facility] Body weight 2021-04-07 21:34:00 97.977 kg [facility] BMI 2021-04-07 21:34:00 34.86 kg/m2 [facility] Body temperature 2021-04-07 21:30:00 36 Grace [facility] Respiratory rate 2021-04-07 21:30:00 16 /min [facility] Oxygen saturation in 2021-04-07 21:30:00 94 /min [facility] Arterial blood by [place] [facility] Pulse oximetry [facility] Systolic blood 2019-04-20 13:18:00 124 mm[Hg] [facility] pressure [facility] Diastolic blood 2019-04-20 13:18:00 76 mm[Hg] [facility] pressure [facility] Heart rate 2019-04-20 13:18:00 68 /min [facility] Body temperature 2019-04-20 13:18:00 36.17 Grace [facility] Respiratory rate 2019-04-20 13:18:00 18 /min [facility] Body height 2019-04-20 13:18:00 170.2 cm [facility] Body weight 2019-04-20 13:18:00 94.167 kg [facility] BMI 2019-04-20 13:18:00 32.51 kg/m2 [facility] Oxygen saturation in 2019-04-20 13:18:00 98 /min [facility] of Arterial blood by [facility] Pulse oximetry Branch Systolic blood 2019-04-20 13:18:00 124 mm[Hg] [facility] pressure [facility] Diastolic blood 2019-04-20 13:18:00 76 mm[Hg] [facility] pressure [facility] Heart rate 2019-04-20 13:18:00 68 /min [facility] Body temperature 2019-04-20 13:18:00 36.17 Grace [facility] Respiratory rate 2019-04-20 13:18:00 18 /min [facility] Body height 2019-04-20 13:18:00 170.2 cm [facility] Body weight 2019-04-20 13:18:00 94.167 kg [facility] BMI 2019-04-20 13:18:00 32.51 kg/m2 [facility] Oxygen saturation in 2019-04-20 13:18:00 98 /min [facility] blood by [place] [facility] P[facility] oxim[facility] Systolic blood 2019-03-27 14:25:00 124 mm[Hg] [facility] Diastolic blood 2019-03-27 14:25:00 80 mm[Hg] [facility] pressure [facility] Heart rate 2019-03-27 14:25:00 73 /min [facility] Respiratory rate 2019-03-27 14:25:00 17 /min [facility] Body height 2019-03-27 14:25:00 170.2 cm [facility] Body weight 2019-03-27 14:25:00 93.94 kg [facility] BMI 2019-03-27 14:25:00 32.44 kg/m2 [facility] Oxygen saturation in 2019-03-27 14:25:00 99 /min [facility] of Arterial blood by [facility] kj Pulse oximetry Branch Systolic blood 2019-03-03 16:28:00 135 mm[Hg] [facility]iver [facility]ity [facility] pressure [facility] Diastolic blood 2019-03-03 16:28:00 79 mm[Hg] [facility] pressure [facility] Heart rate 2019-03-03 16:28:00 89 /min [facility] Body temperature 2019-03-03 16:28:00 36.78 Grace [facility] Respiratory rate 2019-03-03 16:28:00 18 /min [facility] Body height 2019-03-03 16:28:00 170.2 cm [facility] Body weight 2019-03-03 16:28:00 93.305 kg [facility] BMI 2019-03-03 16:28:00 32.22 kg/m2 [facility] Oxygen saturation in 2019-03-03 16:28:00 97 /min [facility] blood by [place] [facility] P[facility] oxim[facility] Systolic blood 2019-03-06 17:30:00 111 mm[Hg] [facility] Diastolic blood 2019-03-06 17:30:00 72 mm[Hg] [facility] Heart rate 2019-03-06 17:30:00 62 /min [facility] Body temperature 2019-03-06 17:30:00 36.33 Grace [facility] Respiratory rate 2019-03-06 17:30:00 18 /min [facility] Oxygen saturation in 2019-03-06 17:30:00 100 /min [facility] [place] [facility] Pulse oxim[facility] Body height 2019-03-04 05:30:00 170.2 cm [facility] [place] [facility] Body weight 2019-03-04 05:30:00 92.579 kg [facility] [place] [facility] BMI 2019-03-04 05:30:00 31.97 kg/m2 [facility] [place] [facility] Heart rate 2018-10-26 21:30:00 70 /min [facility] Respiratory rate 2018-10-26 21:30:00 13 /min [facility] Systolic blood 2018-10-26 20:53:00 107 mm[Hg] [facility] Diastolic blood 2018-10-26 20:53:00 71 mm[Hg] [facility] Oxygen saturation in 2018-10-26 20:50:00 95 /min [facility] of Arterial blood by [facility] kj Pulse oximetry Branch Body temperature 2018-10-26 20:32:00 36.22 Grace [facility] Body height 2018-10-26 16:35:00 170.2 cm [facility] Body weight 2018-10-26 16:35:00 91.627 kg [facility] BMI 2018-10-26 16:35:00 31.64 kg/m2 [facility] Systolic blood 2018-09-15 20:27:00 146 mm[Hg] [facility] pressure [facility] Diastolic blood 2018-09-15 20:27:00 73 mm[Hg] [facility] pressure [facility] Heart rate 2018-09-15 20:25:00 73 /min [facility] Body temperature 2018-09-15 20:25:[address] [facility] Respiratory rate 2018-09-15 20:25:00 18 /min [facility] Body height 2018-09-15 20:25:00 172.7 cm [facility] Body weight 2018-09-15 20:25:00 90.629 kg [facility] BMI 2018-09-15 20:25:00 30.38 kg/m2 [facility] Oxygen saturation in 2018-09-15 20:25:00 98 /min [facility] Arterial blood by [facility] Pulse oximetry [place] Systolic blood 2022-04-16 17:15:00 145 mm[Hg] [facility] pressure Diastolic blood 2022-04-16 17:15:00 66 mm[Hg] [facility] pressure Heart rate 2022-04-16 17:15:00 79 /min [facility] Body temperature 2022-04-16 17:15:00 36.67 Grace [facility] Respiratory rate 2022-04-16 17:15:00 20 /min [facility] Oxygen saturation in 2022-04-16 17:15:00 99 /min [facility] Arterial blood by Pulse oximetry BMI 2022-04-16 14:38:00 31.94 kg/m2 [facility] Body height 2022-04-16 14:38:00 170.2 cm [facility] Body weight 2022-04-16 14:38:00 92.488 kg [facility] Procedures Procedure Date / Time Performing Clinician Source Performed CT HEAD WO CONTRAST 2022-04-23 18:24:37 Sandie Almaraz [facility] URINALYSIS 2022-04-23 17:45:00 Sandie Almaraz [facility] XR CHEST 1 VW 2022-04-23 17:29:00 Sandie Almaraz [facility] LIPASE 2022-04-23 17:04:00 Sandie Almaraz [facility] MAGNESIUM 2022-04-23 17:04:00 Sandie Almaraz [facility] TROPONIN I 2022-04-23 17:04:00 Sandie Almaraz [facility] COMP. METABOLIC PANEL 2022-04-23 17:04:00 Sandie Almaraz [facility] ([id number]) [facility] [place] CBC WITH DIFF 2022-04-23 17:04:00 Sandie Almaraz [facility] CONSENT/REFUSAL FOR 2022-04-23 15:40:29 Doctor Umberto, [facility] DIAGNOSIS AND TREATMENT [place] [facility] [place] SURGICAL PATHOLOGY 2022-04-16 17:43:00 Faby Blair [facility] REQUEST COLONOSCOPY 2022-04-16 16:13:00 Mukund [facility] spital URINALYSIS 2022-03-09 19:50:00 Fawn Sterling [facility] CONSENT/REFUSAL FOR 2022-03-09 17:22:31 Doctor Umberto, [facility] OF [facility]IVACY 2022-02-21 02:38:01 Doctor Umberto, [facility] PRACTICES [place] [facility] [place] CONSENT/REFUSAL FOR 2022-02-21 02:37:40 Doctor Umberto [facility] DIAGNOSIS AND TREATMENT [place] [facility] [place] UGI W OR WO KUB 2022-02-20 15:54:14 Jackson Enamorado [facility] SURGICAL PATHOLOGY 2021-11-03 15:10:00 Mukund [facility] REQUEST US UPPER GI TRACT, 2021-11-03 13:29:00 [facility] ENDOSCOPIC CBC WITH PLATELET AND 2021-11-03 13:13:00 Faby Blair [facility] DIFFERENTIAL MANUAL DIFFERENTIAL 2021-11-03 13:13:00 Mukund [facility] CBC WITH PLATELET AND 2021-11-03 13:13:00 Mukund [facility] DIFFERENTIAL ASSIGNMENT OF BENEFITS 2021-07-31 19:51:44 Doctor Unassnida, [facility] [place] [facility] [place] BARIUM SWALLOW 2021-06-11 15:38:21 Walt Mayers [facility] ESOPHAGUS Medical Branch US ABDOMEN COMPLETE 2021-06-11 15:10:00 Walt [facility]ers [facility] C Medical Branch ASSIGNMENT OF BENEFITS 2021-06-11 13:49:32 Doctor Unassigned, Un [facility] [place] [facility] TRANSTHORACIC ECHO (TTE) 2021-04-07 20:23:00 Ammon Hardy [facility] COMPLETE W/ CONTRAST [facility] TROPONIN I 2021-04-07 11:11:00 [facility] BASIC METABOLIC PANEL 2021-04-07 11:11:00 Rowan [facility] (NA, K, CL, CO2, GLUCOSE, Medica l Branch BUN, CREATININE, CA) LIPID PANEL ([id number])(TOTAL 2021-04-07 11:11:00 [facility] CHOLESTEROL, [facility] TRIGLYCERIDES, HDL) CBC WITH DIFF 2021-04-07 11:11:00 [facility] 2021-04-07 05:40:00 [facility] URIN[facility]YSIS 2021-04-07 01:06:00 Marta Bradshaw [facility] CBC WITH DIFF 2021-04-07 00:59:00 Augustine [facility] PROTHROMBIN TIME / INR 2021-04-07 00:59:[address] [facility] XR CHEST 1 VW 2021-04-07 00:51:41 [facility] 2021-04-07 00:43:00 [facility]. METABOLIC PANEL 2021-04-07 00:43:00 Marta Bradshaw [facility] ([id number]) [facility] N-TERMINAL PRO-BNP 2021-04-07 00:43:00 Marta Bradshaw [facility] COVID-19 (ID NOW RAPID 2021-04-07 00:43:00 Marta [facility] TESTING) Medical Branch LAB ONLY COVID 2021-04-07 00:43:00 Marta Bradshaw [facility] INTERPRETATION [facility] HB ECG ROUTINE & RHYTHM 2021-04-07 00:20:46 Marta Bradshaw [facility] NOTICE OF PRIVACY 2021-04-07 00:16:15 Doctor Umberto, [facility] PRACTICES [place] [facility] [place] CONSENT/REFUSAL FOR 2021-04-07 00:16:01 Doctor Umberto [facility] DIAGNOSIS AND TREATMENT [facility] AUTHORIZATION FOR RELEASE 2019-04-27 05:01:00 Doctor Umberto, [facility] [place] URODYNAMIC STUDY DATA 2019-03-27 06:01:00 Doctor Krysssnida, [facility] [place] BASIC METABOLIC PANEL 2019-03-06 11:15:00 Franky Dalal [facility] (NA, K, CL, CO2, GLUCOSE, Medica l Branch BUN, CREATININE, CA) CBC WITH DIFFERENTIAL 2019-03-06 11:15:00 Franky Dalal [facility] LACTATE DEHYDROGENASE 2019-03-05 21:30:00 Chauncey Shah [facility] PROTHROMBIN TIME / INR 2019-03-05 21:30:00 Chauncey Shah [facility] D-DIMER 2019-03-05 21:30:[address] [facility] ACTIVATED PARTIAL 2019-03-05 21:30:00 Chauncey Shah [facility] FIBRINOGEN 2019-03-05 21:30:00 Alyssa [facility] CBC WITH DIFFERENTIAL 2019-03-05 21:30:00 Chauncey Shah [facility] CREATINE KINASE 2019-03-05 10:48:[address] [facility] FERRITIN SERUM 2019-03-05 10:48:[address] [facility] BASIC METABOLIC PANEL 2019-03-05 10:48:00 Franky Dalal [facility] (NA, K, CL, CO2, GLUCOSE, Medica l Branch BUN, CREATININE, CA) CBC WITH DIFFERENTIAL 2019-03-05 10:48:00 Franky Dalal [facility] VITAMIN B12, LEVEL 2019-03-04 11:50:00 Chauncey Shah [facility] FOLATE 2019-03-04 11:50:00 Alyssa [facility] FREE T4 2019-03-04 11:50:00 Alyssa [facility] THYROID STIMULATING 2019-03-04 11:50:00 Chauncey Shah [facility] HORMONE [facility] BASIC METABOLIC PANEL 2019-03-04 11:50:00 Franky Dalal [facility] (NA, K, CL, CO2, GLUCOSE, Medica l Branch BUN, CREATININE, CA) IRON PANEL 2019-03-04 11:50:00 Alyssa [facility] CBC WITH DIFFERENTIAL 2019-03-04 11:50:00 Katlin [facility] FREE T3 2019-03-04 11:50:00 Alyssa [facility] PROCALCITONIN 2019-03-04 11:50:00 Katlin [facility] CT ABDOMEN PELVIS W WO 2019-03-04 07:23:52 Franky Dalal [facility] CONTRAST [facility] CBC WITH DIFFERENTIAL 2019-03-04 02:43:00 Eliza Bowie [facility] XR CHEST 1 VW 2019-03-04 02:35:[address] [facility] ADC,CLC OR LCC ONLY - 2019-03-04 02:30:00 Eliza Bowie [facility] INFLUENZA A & B DIRECT Medical [facility] ANTIGEN MAGNESIUM 2019-03-04 02:04:[address] [facility] HEPATIC FUNCTION PANEL 2019-03-04 02:04:00 Franky Dalal [facility] ([id number]) (ALB,T.PRO,BILI Medical Branch T,BU/BC,ALT,AST,ALK PHOS) BASIC METABOLIC PANEL 2019-03-04 02:04:00 Eliza Bowie [facility] (NA, K, CL, CO2, GLUCOSE, Medica l Branch BUN, CREATININE, CA) LACTIC ACID WHOLE BLOOD 2019-03-04 01:57:[address] [facility] ASSIGNMENT OF BENEFITS 2019-03-04 01:18:10 Doctor Unassigned, [facility] Name Medical Branch NOTICE OF PRIVACY 2019-03-04 01:15:44 Doctor Unassigned, [facility] PRACTICES [place] [facility] CONSENT/REFUSAL FOR 2019-03-04 01:15:31 Doctor Unassigned, [facility] DIAGNOSIS AND TREATMENT [place] [facility] [place] URINALYSIS 2019-03-03 19:07:00 Avelino [facility] URINE CULTURE 2019-03-03 19:07:00 Avelino [facility] DISCLOSURE AND CONSENT, 2019-03-03 06:01:00 Doctor Unassigned, [facility] MEDICAL AND SURGICAL [place] [facility] PROCEDURES INTUBATION 2018-10-26 19:14:15 Abiodun [facility] [place] ASSIGNMENT OF BENEFITS 2018-10-26 16:07:13 Doctor Unassigned, [facility] Name Medical Branch COMP. METABOLIC PANEL 2018-09-27 15:25:00 aHri [facility] ([id number]) [facility] [place] CBC WITH DIFFERENTIAL 2018-09-27 15:25:00 Hari Ewelina [facility] [place] ASSIGNMENT OF BENEFITS 2018-09-27 14:41:15 Doctor Unassigned, [facility] Name Medical Branch DISCLOSURE AND CONSENT, 2018-09-15 05:01:00 Doctor Unassniad, [facility] MEDICAL AND SURGICAL [place] [facility] PROCEDURES Plan of Care Planned Activity Planned Date Details Comments Source Future Scheduled 2022-06-24 65+ [facility] VACCINE (1 - PCV) [code = 65+ PNEUMOCOCCAL VACCINE (1 - PCV)] Future Scheduled 2022-06-24 COVID-19 VACCINE (4 - Me [facility] Test 10:56:49 Booster for Pfizer series) [code = COVID-19 VACCINE (4 - Booster for Pfizer series)] Future Scheduled 2022-06-24 SHINGLES VACCINES (2 Met [facility] Test 10:56:49 of 2) [code = SHINGLES VACCINES (2 of 2)] Future Scheduled 2022-06-24 INFLUENZA VACCINE [facility] 10:56:49 [code = INFLUENZA VACCINE] Future Scheduled 2022-06-24 65+ [facility]OCO[facility] Test 10:56:49 VACCINE (1 - PCV) [code = 65+ PNEUMOCOCCAL VACCINE (1 - PCV)] Future Scheduled 2022-06-24 COVID-19 [facility]ACCINE ([facility] 10:56:49 Booster for Pfizer series) [code = COVID-19 VACCINE (4 - Booster for Pfizer series)] Future Scheduled 2022-06-24 [facility]ING[facility]IN[facility] of 2) [code = SHINGLES VACCINES (2 of 2)] Future Scheduled 2022-06-24 INFLUENZA VACCINE Method [facility] Hospital Test 10:56:49 [code = INFLUENZA VACCINE] Future Scheduled 2022-05-29 65+ [facility]OCOCC[address] [facility] Test 09:29:34 VACCINE (1 - PCV) [code = 65+ PNEUMOCOCCAL VACCINE (1 - PCV)] Future Scheduled 2022-05-29 COVID-19 VACCINE (4 - Me [facility] Test 09:29:34 Booster for Pfizer series) [code = COVID-19 VACCINE (4 - Booster for Pfizer series)] Future Scheduled 2022-05-29 SHINGLES VACCINES (2 Met [facility] Test 09:29:34 of 2) [code = SHINGLES VACCINES (2 of 2)] Future Scheduled 2022-05-29 INFLUENZA VACCINE Method ist Hospital Test 09:29:34 [code = INFLUENZA VACCINE] Future Scheduled 2022-05-04 65+ PNEUMOCOCCAL Methodi [facility] 12:29:40 VACCINE (1 - PCV) [code = 65+ PNEUMOCOCCAL VACCINE (1 - PCV)] Future Scheduled 2022-05-04 COVID-19 VACCINE (4 - [facility] 12:29:40 Booster for Pfizer series) [code = COVID-19 VACCINE (4 - Booster for Pfizer series)] Future Scheduled 2022-05-04 [facility] of 2) [code = [...] Future Scheduled 2022-04-30 SHINGLES VACCINES (2 [facility] Test 10:09:26 of 2) [code = SHINGLES VACCINES (2 of 2)] Encounters Start End Encounter Admission Attending Care Care Encounter Source Date/Time Date/Time Type Type Clinicians Facility Department ID 2022-06-24 Outpatient Ma, [facility] [id number] Common 09:31:00 Gilles [id number] [facility] 2022-03-18 Outpatient Ma, [facility] [id number] Common 14:59:01 Gilles 13228 [facility] 2021-12-15 Outpatient Ma, ST[facility] [id number] Common 16:05:01 Gilles 28245 [facility] 2021 Outpatient Ma, STLC [facility] [id number] Common 13:49:01 Gilles 82462 [facility] 2021-03-05 Outpatient Ma, STLC [facility] [id number] Common 14:22:46 Gilles 23358 [facility] 2021-03-05 Outpatient Ma, STLC [facility] [id number] Common 12:26:24 Gilles 05146 [facility] 2021-03-05 Outpatient Ma, STLC [facility] [id number] Common 11:14:41 Gilles 14832 [facility] 2022-05-26 2022-05-26 Telemedici Fei, 1.2.840.1 [id number] 793 [id number] Methodi 14:30:00 16:10:26 ne [place] [address]00.1.[address] 3.430.2.7 Hospit a .3.350807 l .8 2022-05-26 2022-05-26 Telemedici Fei, 1.2.840.1 [id number] 100 [id number] Methodi 14:30:00 16:10:26 ne [place] 55460.1.[address] 3.430.2.7 Hospit a .3.193080 l .8 2022-04-27 2022-04-27 Telephone Jair, 1.2.840.2 [id number] 353 [id number] Methodi 00:00:00 00:00:[address] 3.430.2.7 Hospit a .3.584776 l .8 2022-04-27 2022-04-27 Telephone Jair, 1.2.840.1 [id number] 828 [id number] Methodi 00:00:00 00:00:[address] 3.430.2.7 Hospit a .3.228283 l .8 2022-04-23 2022-04-23 Emergency X [facility] ERT [id number] Univers 11:19:00 14:15:00 SANDIE coronel [facility] 2022-04-23 2022-04-23 Emergency [facility] 1.2.826.250 8290 68742 Univers 11:19:00 14:15:00 Sandie WHITLEY 350.1.13.10 homer [facility] 4.2.7.2.686 [facility] [id number] [address] 2022-04-16 2022-04-16 [facility] Faby Blair 1.2.840.1 [id number] 261 [id number] Methodi 07:52:00 23:59:[address] 3.430.2.7 Hospit a .3.009937 l .8 2022-04-16 2022-04-16 [facility] Faby Blair 1.2.840.1 [id number] 998 [id number] Methodi 07:52:00 23:59:[address] 3.430.2.7 Hospit a .3.014674 l .8 2022-04-16 2022-04-16 Anesthesia Martha Whitman 1.2.840.1 [id number] Methodi 10:13:00 10:50:00 Event Slime Scott 51217.1.[address] 3.430.2.7 Hospit a .3.892528 l .8 2022-04-16 2022-04-16 Anesthesia Martha Whitman 1.2.840.1 [id number] Methodi 10:13:00 10:50:00 Event Slime Scott 95587.1.[address] 3.430.2.7 Hospit a .3.368002 l .8 2022-04-16 2022-04-16 Surgery MukundFaby falcon 1.2.840.1 [id number] 2099 615233 Methodi 10:00:00 10:30:[address] 3.430.2.7 Hospit a .3.767701 l .8 2022-04-16 2022-04-16 Surgery Faby Blair 1.2.840.1 [id number] 2099 160723 Methodi 10:00:00 10:30:[address] 3.430.2.7 Hospit a .3.928853 l .8 2022-04-16 2022-04-16 Travel 1.2.840.1 1.2.925.369 3847 565687 Methodi 00:00:00 00:00:[address] 3.430.2.7 0.2.7.3.698 Ho spita .3.650483 084.8 l .8 2022-04-16 2022-04-16 Travel 1.2.840.1 1.2.289.298 7907 427382 Methodi 00:00:00 00:00:[address] 3.430.2.7 0.2.7.3.698 Ho spita .3.032320 084.8 l .8 2022-04-15 2022-04-15 Documentat Ramirez, 1.2.840.1 [id number] 671 [id number] Methodi 00:00:00 00:00:00 ion Parisa 75172.1.[address] 3.430.2.7 Hospit a .3.783904 l .8 2022-04-15 2022-04-15 Documentat Ramirez, 1.2.840.1 [id number] 975 [id number] Methodi 00:00:00 00:00:00 ion Parisa 77076.1.[address] 3.430.2.7 Hospit a .3.324262 l .8 2022-03-18 2022-03-18 Telephone Faby Blair 1.2.840.1 [id number] Methodi 00:00:00 00:00:[address] 3.430.2.7 Hospit a .3.837567 l .8 2022-03-18 2022-03-18 Orders Ramirez, 1.2.840.1 [id number] 847482 5333 Methodi 00:00:00 00:00:00 Only Parisa 99165.1.[address] 3.430.2.7 Hospit a .3.359020 l .8 2022-03-18 2022-03-18 Orders Ramirez, 1.2.840.1 [id number] 754868 3212 Methodi 00:00:00 00:00:00 Only Parisa 74663.1.[address] 3.430.2.7 Hospit a .3.993897 l .8 2022-03-18 2022-03-18 Telephone Faby Blair 1.2.840.1 [id number] Methodi 00:00:00 00:00:[address] 3.430.2.7 Hospit a .3.622139 l .8 2022-03-16 2022-03-16 Telephone Faby Blair 1.2.840.1 [id number] 21 [id number] Methodi 00:00:00 00:00:[address] 3.430.2.7 Hospit a .3.056108 l .8 2022-03-16 2022-03-16 Telephone Faby Blair 1.2.840.1 [id number] 48056898 Methodi 00:00:00 00:00:[address] 3.430.2.7 Hospit a .3.170405 l .8 2022-03-13 2022-03-13 Telemedici Faby Blair 1.2.840.1 [id number] 2 [id number] Methodi 10:30:00 10:36:[address] 3.430.2.7 Hospit a .3.639389 l .8 2022-03-13 2022-03-13 Telemedici Faby Blair 1.2.840.1 [id number] 2 [id number] Methodi 10:30:00 10:36:[address] 3.430.2.7 Hospit a .3.050750 l .8 2022-03-11 2022-03-11 Telephone Adam, 1.2.840.8 [id number] 693 [id number] Methodi 00:00:00 00:00:[address] 3.430.2.7 Hospit a .3.874685 l .8 2022-03-11 2022-03-11 Telephone Adam, 1.2.840.7 [id number] 222 [id number] Methodi 00:00:00 00:00:[address] 3.430.2.7 Hospit a .3.467990 l .8 2022-03-09 2022-03-09 Emergency [facility] E[facility] [id number] 4485 Univers 11:41:00 14:58:00 FAWN coronel [facility] 2022-03-09 2022-03-09 Emergency [facility] 1.2.840.114 10 8014866 Univers 11:41:00 14:58:00 Fawn WHITLEY 350.1.13.10 i [facility] 4.2.7.2.686 [facility] [id number] [place] [address] [place] 2022-02-20 2022-02-20 [facility], 1.2.840.1 [id number] 53985 23442 Methodi 08:22:19 23:59:00 Encounter Jackson 24253.1.[address] 3.430.2.7 Hospit a .3.546374 l .8 2022-02-20 2022-02-20 [facility], 1.2.840.1 [id number] 53828 91384 Methodi 08:22:19 23:59:00 Kalyani Paz [address]3698.1.[address] 3.430.2.7 Hospit a .3.272813 l .8 2022-02-20 2022-02-20 Emergency X [facility] ERT 1043 [id number] Univers 21:05:00 21:55:00 , FERMIN simonachace of [facility] 2022-02-20 2022-02-20 Emergency [facility] 1.2.840.114 [id number] Univers 21:05:00 21:55:00 , Fermin WHITLEY 350.1.13.10 i ty [facility] 4.2.7.2.686 [facility] [id number] [address] 2022-02-20 2022-02-20 Travel 1.2.840.1 1.2.683.432 2481 574360 Methodi 00:00:00 00:00:[address] 3.430.2.7 0.2.7.3.698 Ho spita .3.223522 084.8 l .8 2022-02-20 2022-02-20 Travel 1.2.840.1 1.2.850.244 9571 753799 Methodi 00:00:00 00:00:[address] 3.430.2.7 0.2.7.3.698 Ho spita .3.837095 084.8 l .8 2022-02-12 2022-02-12 Travel 1.2.840.1 1.2.638.579 6773 644820 Methodi 00:00:00 00:00:[address] 3.430.2.7 0.2.7.3.698 Ho spita .3.951117 084.8 l .8 2022-02-12 2022-02-12 Travel 1.2.840.1 1.2.290.391 4005 291509 Methodi 00:00:00 00:00:[address] 3.430.2.7 0.2.7.3.698 Ho spita .3.888774 084.8 l .8 2021-12-30 2021-12-30 Office Fei, 1.2.840.1 [id number] 775600 8986 Methodi 08:30:00 10:36:14 Visit Jackson 00465.1.[address] 3.430.2.7 Hospit a .3.803448 l .8 2021-12-30 2021-12-30 Office Fei, 1.2.840.1 [id number] 498035 5319 Methodi 08:30:00 10:36:14 Visit Jackson 87359.1.[address] 3.430.2.7 Hospit a .3.704194 l .8 2021-12-30 2021-12-30 Travel 1.2.840.1 1.2.834.351 6959 051623 Methodi 00:00:00 00:00:[address] 3.430.2.7 0.2.7.3.698 Ho spita .3.179354 084.8 l .8 2021-12-30 2021-12-30 Travel 1.2.840.1 1.2.798.800 0346 276352 Methodi 00:00:00 00:00:[address] 3.430.2.7 0.2.7.3.698 Ho spita .3.618474 084.8 l .8 2021-11-13 2021-11-13 Telephone Adam, 1.2.840.4 [id number] 397 4315421 Methodi 00:00:00 00:00:[address] 3.430.2.7 Hospit a .3.140770 l .8 2021-11-13 2021-11-13 Telephone Ramirez, 1.2.840.1 [id number] 2099 339700 Methodi 00:00:00 00:00:[address] 3.430.2.7 Hospit a .3.391556 l .8 2021-11-13 2021-11-13 Telephone Adam, 1.2.840.6 [id number] 728 0129485 Methodi 00:00:00 00:00:[address] 3.430.2.7 Hospit a .3.362173 l .8 2021-11-13 2021-11-13 Telephone Ramirez, 1.2.840.1 [id number] 2099 565030 Methodi 00:00:00 00:00:[address] 3.430.2.7 Hospit a .3.950352 l .8 2021-11-11 2021-11-11 Telephone Ramirez, 1.2.840.1 [id number] 2099 221773 Methodi 00:00:00 00:00:[address] 3.430.2.7 Hospit a .3.782870 l .8 2021-11-11 2021-11-11 Telephone Ramirez, 1.2.840.1 [id number] 2099 296112 Methodi 00:00:00 00:00:[address] 3.430.2.7 Hospit a .3.453678 l .8 2021-11-06 2021-11-06 Telephone Ramirez, 1.2.840.1 [id number] 2099 816452 Methodi 00:00:00 00:00:[address] 3.430.2.7 Hospit a .3.338386 l .8 2021-11-06 2021-11-06 Orders Ramirez, 1.2.840.1 [id number] 436873 1416 Methodi 00:00:00 00:00:00 Only Parisa 97477.1.[address] 3.430.2.7 Hospit a .3.176812 l .8 2021-11-06 2021-11-06 Telephone Ramirez, 1.2.840.1 [id number] 2100 353190 Methodi 00:00:00 00:00:[address] 3.430.2.7 Hospit a .3.501688 l .8 2021-11-06 2021-11-06 Orders Ramirez, 1.2.840.1 [id number] 584261 6558 Methodi 00:00:00 00:00:00 Only Parisa 94265.1.[address] 3.430.2.7 Hospit a .3.352358 l .8 2021-11-03 2021-11-03 Surgery Faby Blair 1.2.840.1 [id number] 2099 732858 Methodi 08:30:00 10:00:[address] 3.430.2.7 Hospit a .3.515126 l .8 2021-11-03 2021-11-03 Surgery Faby Blair 1.2.840.1 [id number] 2099 474860 Methodi 08:30:00 10:00:[address] 3.430.2.7 Hospit a .3.017512 l .8 2021-11-03 2021-11-03 [facility] Faby Blair 1.2.840.1 [id number] 321 5979886 Methodi 06:34:00 09:46:[address] 3.430.2.7 Hospit a .3.663332 l .8 2021-11-03 2021-11-03 [facility] Faby Blair 1.2.840.1 [id number] 288 1547329 Methodi 06:34:00 09:46:[address] 3.430.2.7 Hospit a .3.353497 l .8 2021-11-03 2021-11-03 Anesthesia Tiana Martinez 1.2.840.1 049674769 [id number] Methodi 08:30:00 09:04:00 Event Millicent Rivero 67420.1.[address] 3.430.2.7 Hospit a .3.516222 l .8 2021-11-03 2021-11-03 Anesthesia Tiana Martinez e 1.2.840.1 [id number] Methodi 08:30:00 09:04:00 Event Millicent Rivero 66466.1.[address] 3.430.2.7 Hospit a .3.647070 l .8 2021-11-03 2021-11-03 Travel 1.2.840.1 1.2.354.849 2113 094053 Methodi 00:00:00 00:00:[address] 3.430.2.7 0.2.7.3.698 Ho spita .3.772227 084.8 l .8 2021-11-03 2021-11-03 Travel 1.2.840.1 1.2.803.396 6271 238522 Methodi 00:00:00 00:00:[address] 3.430.2.7 0.2.7.3.698 Ho spita .3.624631 084.8 l .8 2021-10-22 2021-10-22 Telephone Faby Blair 1.2.840.1 [id number] 21 [id number] Methodi 00:00:00 00:00:[address] 3.430.2.7 Hospit a .3.558835 l .8 2021-10-22 2021-10-22 Telephone Faby Blair 1.2.840.1 [id number] 21 35215199 Methodi 00:00:00 00:00:[address] 3.430.2.7 Hospit a .3.388755 l .8 2021-10-21 2021-10-21 Telephone Faby Blair 1.2.840.1 [id number] 21 14734406 Methodi 00:00:00 00:00:[address] 3.430.2.7 Hospit a .3.807265 l .8 2021-10-21 2021-10-21 Telephone Faby Blair 1.2.840.1 [id number] 21 73259508 Methodi 00:00:00 00:00:[address] 3.430.2.7 Hospit a .3.180862 l .8 2021-10-20 2021-10-20 Telephone Faby Blair 1.2.840.1 [id number] 32317240 Methodi 00:00:00 00:00:[address] 3.430.2.7 Hospit a .3.157790 l .8 2021-10-20 2021-10-20 Telephone Faby Blair 1.2.840.1 [id number] 33828134 Methodi 00:00:00 00:00:[address] 3.430.2.7 Hospit a .3.256987 l .8 2021-10-17 2021-10-17 Telephone Faby Blair 1.2.840.1 [id number] 25856636 Methodi 00:00:00 00:00:[address] 3.430.2.7 Hospit a .3.755059 l .8 2021-10-17 2021-10-17 Telephone Faby Blair 1.2.840.1 [id number] [id number] Methodi 00:00:00 00:00:[address] 3.430.2.7 Hospit a .3.993446 l .8 2021-10-16 2021-10-16 Office Faby Blair 1.2.840.1 [id number] 2099 203724 Methodi 15:00:00 15:00:[address] 3.430.2.7 Hospit a .3.574241 l .8 2021-10-16 2021-10-16 Office Faby Blair 1.2.840.1 [id number] 2099968 Methodi 15:00:00 15:00:[address] 3.430.2.7 Hospit a .3.233579 l .8 2021-10-16 2021-10-16 Travel 1.2.840.1 1.2.257.937 1450 294276 Methodi 00:00:00 00:00:[address] 3.430.2.7 0.2.7.3.698 Ho spita .3.903055 084.8 l .8 2021-10-16 2021-10-16 Travel 1.2.840.1 1.2.628.837 6276 563421 Methodi 00:00:00 00:00:[address] 3.430.2.7 0.2.7.3.698 Ho spita .3.584711 084.8 l .8 2021-10-15 2021-10-15 Telephone Mian, 1.2.840.1 [id number] Methodi 00:00:00 00:00:[address] 3.430.2.7 Hospit a .3.866908 l .8 2021-10-15 2021-10-15 Telephone Mian, 1.2.840.1 [id number] Methodi 00:00:00 00:00:[address] 3.430.2.7 Hospit a .3.521907 l .8 2021-07-31 2021-07-31 Outpatient R [facility] 121 [id number] Univers 14:57:54 23:59:00 WALT Bird [facility] 2021-07-31 2021-07-31 [facility] 1.2.840.114 9 [id number] Univers 14:57:54 23:59:00 Encounter Walt bird 350.1.13.10 Noah 4.2.7.2.686 [facility] [id number] [facility] [address] 2021-07-31 2021-07-31 Orders Doctor LUPIS 1.2.840.114 [id number] Univers 00:00:00 00:00:00 Only Unassigned, MARGI 350.1.13.10 ity of [place] [facility] 4.2.7.2.686 [place] as [id number] [address] 2021-07-24 2021-07-24 Outpatient R [facility] [id number] Univers 00:00:00 00:00:00 WALT Bird f [facility] 2021-06-11 2021-06-11 [facility] 1.2.840.114 9 [id number] Univers 08:57:52 23:59:00 Encounter Walt bird 350.1.13.10 ity of [place] 4.2.7.2.686 [facility] [id number] [address] 2021-06-11 2021-06-11 Outpatient R [facility] 172 [id number] Univers 08:52:48 08:56:00 WALT Bird f [facility] 2021-06-11 2021-06-11 [facility] 1.2.840.114 9 [id number] Univers 08:52:48 08:56:00 Encounter Walt bird 350.1.13.10 ity of [place] 4.2.7.2.686 [facility] [id number] [facility] [address] 2021-06-11 2021-06-11 Orders Doctor LUPIS 1.2.840.114 [id number] Univers 00:00:00 00:00:00 Only Unassigned, MARGI 350.1.13.10 ity of [place] [facility] 4.2.7.2.686 [place] as [id number] [address] 2021-04-08 2021-04-08 Transition BAMBI Ovalle 1.2.840.114 916 [id number] Univers 00:00:00 00:00:00 of Care [place] A WETZEL 350.1.13.10 ity of [place] 4.2.7.2.686 [facility] [phone] [facility] [address] 2021-04-06 2021-04-07 Outpatient X ROWAN [facility] МАРИЯ [id number] Univers 18:17:00 18:00:00 REMY ity [facility] 2021-04-06 2021-04-07 Emergency BradshawMarta [facility] 1.2.840 .114 [id number] Univers 18:17:00 18:00:00 Remy Donahue 350.1.13.10 ity of [place] 4.2.7.2.686 [facility] [id number] [facility] [address] 2020-04-02 2020-04-02 (TEL) [facility] [id number] Co mmon 00:00:00 00:00:00 [facility] 2020-04-01 2020-04-01 (TEL) [facility] [id number] Co mmon 00:00:00 00:00:00 [facility] 2019-09-04 2019-09-04 [facility] [id number] Common 15:45:00 15:45:00 t Specialty/U Sp evangelina Specialty rology - [facility] 2019-07-20 2019-07-20 Outpatient R [facility]I [facility] [id number] Univers 09:30:00 09:30:00 [facility] 2019-04-27 2019-04-27 [facility] [id number] Common 09:30:00 09:30:00 t Specialty/U Sp evangelina Specialty rology - [facility] 2019-04-27 2019-04-27 Orders Doctor BAUGH 1.2.840.114 [id number] Univers 00:00:00 00:00:00 Only Unassigned, MARGI 350.1.13.10 ity of [place] [facility] 4.2.7.2.686 [place] [phone] [facility] [address] 2019-04-27 2019-04-27 Orders Doctor BAUGH 1.2.840.114 [id number] 00:00:00 00:00:00 Only Unassigned, MARGI 350.1.13.10 [place] 4.2.7.2.686 [id number] 009 2019-04-21 2019-04-21 Telephone [facility] 1.2.286.659 2086 9996 Univers 00:00:00 00:00:00 Ewelina SPECIALTY 350.1.13.10 [place] [id number] Ga jaiden ALVES [address] [place] [address] 2019-04-21 2019-04-21 [facility] 1.2.145.412 1112 9996 00:00:00 00:00:00 Ewelina SPECIALTY 350.1.13.10 CARE 4.2.7.2.686 CENTER AT [id number] JOSELYN [address] [place] [address] 2019-04-20 2019-04-20 Office [facility] 1.2.840.114 [id number] Univers 08:05:41 09:17:43 Visit Ewelina SPECIALTY 350.1.13.10 [place] [phone] Ga jaiden ALVES [address] [place] [address] 2019-04-20 2019-04-20 Office [facility] 1.2.840.114 [id number] 08:05:41 09:17:43 Visit Ewelina SPECIALTY 350.1.13.10 CARE 4.2.7.2.686 CENTER AT [phone] [address] 2019-04-20 2019-04-20 Outpatient R [facility] [id number] Univers 08:30:00 08:30:00 EWELINA ity of [facility] 2019-03-27 2019-03-27 Office [facility] 1.2.840.114 [id number] Univers 07:51:12 09:06:35 Visit Magalys N SPECIALTY 350.1.13.10 [place] [phone] Ga jaiden [address] 2019-03-27 2019-03-27 Orders Doctor LUPIS 1.2.840.114 [id number] Univers 00:00:00 00:00:00 Only Unassigned, MARGI 350.1.13.10 ity of [place] [facility] 4.2.7.2.686 [place] [id number] [facility] [address] 2019-03-27 2019-03-27 Orders Doctor BAUGH 1.2.840.114 [id number] 00:00:00 00:00:00 Only Unassigned, MARGI 350.1.13.10 [place] [facility] 4.2.7.2.686 [id number] [facility] 2019-03-03 2019-03-07 Nurse Nurse, [facility] [place] 1.2.840.114 [id number] Univers 09:52:51 08:19:09 Visit Magalys Leos SPECIALTY 350.1.1 3.10 [place] [phone] [place] 6[address]38 [facility] 2019-03-07 2019-03-07 Telephone Avelino Jimmy [place] 1.2.840.114 [id number] [id number] Univers 00:00:00 00:00:00 Leon SPECIALTY 350.1.13.10 [place] [phone] [address] 2019-03-07 2019-03-07 Transition RodriguezBambi 1.2.840.114 [id number] [id number] Univers 00:00:00 00:00:00 of Care Ely Wetzel 350.1.13.10 it y of [place] [phone] [facility] [address] 2019-03-03 2019-03-06 Hospital Eliza Bowie [facility] 1.2.840.11 4 [id number] Univers 19:31:34 14:20:00 Encounter Franky Dalal 350.1.13.10 [place] of [place] [id number] [facility] [address] 2019-03-03 2019-03-03 Nurse Saw BAUGH 1.2.840.114 [id number] Univers 00:00:00 00:00:00 Triage d, Jodee Casillas MARGI 350.1.13.10 ity of HOSPITAL 4.2.7.2.686 [place] as [phone] [facility] [address] 2019-03-03 2019-03-03 Orders Doctor LUPIS 1.2.840.114 [id number] Univers 00:00:00 00:00:00 Only Unassigned, MARGI 350.1.13.10 ity of [place] [facility] 4.2.7.2.686 [place] [phone] [facility] [address] 2019-03-03 2019-03-03 Telephone [facility] 1.2.653.019 [id number] Univers 00:00:00 00:00:00 Ewelina SPECIALTY 350.1.13.10 [place] [phone] [place] [id number] [facility] 2018-10-27 2018-10-27 Transition Bambi Mcpherson 1.2.840.114 [id number] Univers 00:00:00 00:00:00 of Care Nadeen Wetzel 350.1.13.10 it [place] [phone] [facility] [address] 2018-10-26 2018-10-[address] [facility] 1.2.840.114 [id number] Univers 11:07:00 17:32:00 Encounter [facility] 350.1.13.10 [place] [facility] [phone] [address] ([facility]) 2018-10-26 2018-10-26 Anesthesia Replaced by [facility] 1.2.840.114 [id number] Univers 13:43:00 15:35:00 Juliette SPECIALTY 350.1.13.10 [place] [phone] Ga jaiden DICKEY 020 [facility] 2018-10-26 2018-10-26 Orders Doctor BAUGH 1.2.840.114 [id number] Univers 00:00:00 00:00:00 Only Unassigned, MARGI 350.1.13.10 ity of [place] [facility] 4.2.7.2.686 [place] [phone] [facility] [address] 2018-09-27 2018-09-27 Rivet Catcher 1, Adc Lab [facility] 1.2.840.114 [id number] Univers 10:17:02 10:32:02 Visit Ewelina Noriega Bruna 350.1.13.10 ity of [place] [phone] [facility] [address] 2018-09-27 2018-09-27 Orders Doctor LUPIS 1.2.840.114 [id number] Univers 00:00:00 00:00:00 Only Unassigned, MARGI 350.1.13.10 ity of [place] [facility] 4.2.7.2.686 [place] [phone] [address] 2018-09-16 2018-09-16 Case [facility] 1.2.840.114 [id number] Univers 00:00:00 00:00:00 Management Magalys Braga SPECIALTY 350.1.13.10 [place] [phone] [address] 2018-09-15 2018-09-15 Office Hari [facility] 1.2.840.114 [id number] Univers 15:16:59 16:30:59 Visit Ewelina SPECIALTY 350.1.13.10 ity of CARE 4.2.7.2.686 [facility] [phone] [address] 2018-09-01 2018-09-01 Telephone Theodora Rowland 1.2.840.114 [id number] Univers 00:00:00 00:00:00 H 350.1.13.10 it y of BUILDING 4.2.7.2.686 [place] as [phone] [address] Results Test Description Test Time Test Comments Results Result Comments Source MAGNESIUM 2022-04-23 18:45:19 Test Item Value Reference Range Interpretation Comme nts MAGNESIUM (test code = 8708597271) 1.9 mg/dL 1.7-2.4 Lab Interpretation (test code = 52072-7) [id number] 17:41:09 Test Item Value Reference Range Interpretation Comments TROPONIN I (test code = 0.006 ng/mL <=0.034 7604442917) ADDIS (test code = ADDIS) Reference (Normal) [...] biotin. Lab Interpretation Normal (test code = 55304-6) [facility] (29711)2022-04-23 17:30:27 Test Item Value Reference Range Interpretation Comments NA (test code = 140 mmol/L 135-145 5632044889) K (test code = 4.4 mmol/L 3.5-5.0 5563005195) CL (test code = 104 mmol/L 98-108 3947130541) CO2 TOTAL (test code = 27 mmol/L 23-31 0335292548) AGAP (test code = 9 2-16 4510221886) BUN (test code = 19 mg/dL 7-23 0328137696) GLUCOSE (test code = 91 mg/dL 70-110 5720041413) CREATININE (test code = 0.73 mg/dL 0.50-1.04 5993595645) TOTAL BILI (test code = 0.8 mg/dL 0.1-1.1 6594958789) CALCIUM (test code = 8.5 mg/dL 8.6-10.6 L 2983672920) T PROTEIN (test code = 6.7 g/dL 6.3-8.2 0230595330) ALBUMIN (test code = 4.2 g/dL 3.5-5.0 0454091041) ALK PHOS (test code = 65 U/L 34-122 5784037339) ALTv (test code = 22 U/L 5-35 1742-6) AST(SGOT) (test code = 30 U/L 13-40 3885771898) eGFR (test code = 76.7 mL/min/1.73m2 2243271588) ADDIS (test code = ADDIS) Association of [...] tests). Lab Interpretation Abnormal (test code = 32795-5) [facility] 17[facility]30:11 Test Item Value Reference Range Interpretation Comments LIPASE (test code = 8596916817) 206 U/L 0-220 Lab Interpretation (test code = Normal 47749-4) [facility] WITH [id number] 17:23:27 Test Item Value Reference Range Interpretation Comments WBC (test code = 8.99 See_Comment [Automated 4852-2) message] The sy stem which generated this [...] RDW-SD (test code = 41.3 fL 39.0-49.9 23319-8) RDW-CV (test code = 13.3 % 12.0-15.5 788-0) PLT (test code = 63 See_Comment L [Automated 777-3) message] The sy stem which generated this result transmitted reference range : 166 - 358 10*3/ ?L. The reference r neetu was not used to interpret this result as normal/abnormal . MPV (test code = 12.5 fL 9.5-12.9 48344-7) NRBC/100 WBC (test 0.0 See_Comment [Automat ed code = 7745909473) message] The system which generated this result transmitted reference range : 0.0 - 10.0 /100 WBCs. The refer ence range was not u sed to interpret th is result as normal/abnormal . NRBC x10^3 (test code See_Comment [Auto mated = 5952204342) message] The s ystem which generated this result transmitted reference range : 10*3/?L. The reference range was not used to interpret this result as normal/abnormal . GRAN MAT (NEUT) % 63.7 % (test code = 770-8) IMM GRAN % (test code 0.80 % = 9730932016) LYMPH % (test code = 27.1 % 736-9) MONO % (test code = 6.8 % 5905-5) EOS % (test code = 1.0 % 713-8) BASO % (test code = 0.6 % 706-2) GRAN MAT x10^3(ANC) 5.73 10*3/uL 1.88-7.09 (test code = 9095402587) IMM GRAN x10^3 (test 0.07 10*3/uL 0.00-0.06 H code = 0309955355) LYMPH x10^3 (test code 2.44 10*3/uL 1.32-3.29 = 731-0) MONO x10^3 (test code 0.61 10*3/uL 0.33-0.92 = 742-7) EOS x10^3 (test code = 0.09 10*3/uL 0.03-0.39 711-2) BASO x10^3 (test code 0.05 10*3/uL 0.01-0.07 = 704-7) Lab Interpretation Abnormal (test code = 46763-1) [facility] [id number] 01:22:03 Test Item Value Reference Range Interpretation Comments Case number (test code = [id number]) Surgical pathology See link below for report (test code = PDF Lab Report 2255) Result status (test code This is Final Report = [id number]) for [id number] [place] [address] pathology [id number] 01:22:03 Test Item Value Reference Range Interpretation Comments Case number (test code = [id number]) Surgical pathology See link below for report (test code = PDF Lab Report 2255) Result status (test code This is Final Report = [id number]) for [id number] [place], [place] [address]urgical pathology [id number] 01:22:03 Test Item Value Reference Range Interpretation Comments Case number (test code = [id number]) Surgical pathology See link below for report (test code = PDF Lab Report 2255) Result status (test code This is Final Report = 5242999) for [id number] [place] [address] pathology [id number] 01:22:03 Test Item Value Reference Range Interpretation Comments Case number (test code = [id number]) Surgical pathology See link below for report (test code = PDF Lab Report 2255) Result status (test code This is Final Report = 5077730) [id number] [facility] [id number] 01:22:03 Test Item Value Reference Range Interpretation Comments Case number (test code = [id number]) Surgical pathology See link below for report (test code = PDF Lab Report 2255) Result status (test code This is Final Report = 1596857) [facility] [id number] [facility] 22:32:30 Test Item Value Reference Range Interpretation Comments LVOT diameter (test code 2.01 cm = 2846637364) LVIDD (test code = 4.00 cm 9775580695) IVS (test code = 1.28 cm 2807157749) Interventricular Septum 1.28 cm Diastolic Thickness by 2D (test code = 5958738) LVPWD (test code = 1.28 cm 5280607022) PW (test code = 1.28 cm 0.6-1.9 8460058598) EF(Teich) (test code = 56.90 % 4130338780) LVIDS (test code = 2.80 cm 3532521523) FS (test code = 29 % 0461510538) EF - 2D (test code = 56.90 % 49029755) LA size (test code = 4.4 cm 9364994996) Ao root annulus (test 3.2 cm code = 6792754806) Ao root diam (test code = 3.20 cm 4504370505) Aortic root (test code = 3.2 cm 8089166477) TR Peak Javier (test code = 255.4 cm/s 1322755539) Triscuspid Valve mmHg Regurgitation Peak Gradient (test code = 9255018019) Pulmonic Regurgitant End 113.0 cm/s Max Velocity (test code = 0861639895) LAV(MOD-sp4) (test code = 59.60 mL 6708320160) E wave decelartion time 0.25 s (test code = 2642558083) MV stenosis pressure 1/2 74.6 ms time (test code = 9950491085) MV Peak E Javier (test code 90.2 cm/s = 7109961300) MV Peak A Javier (test code 111.0 cm/s = 9337973696) E/A ratio (test code = ratio 3490834413) MR max PG (test code = 78.40 mm[Hg] 5087159950) MR max javier (test code = 442.60 cm/s 2143919289) Mr max javier (test code = 442.6 m/s 1215708514) MV Prop V (test code = 32.70 cm/s 0262981709) MV E/e' septal (test code 8.5 cm/s = 3473343845) Tapse (test code = 1.76 cm 2835949587) LVOT stroke volume (test 72.80 cm3 code = 0292457486) LVOT peak javier (test code 107.6 cm/s = 5550285811) LVOT mn grad (test code = mmHg 6707946470) AV LVOT peak gradient mmHg (test code = 3336127102) LVOT peak VTI (test code 23.1 cm = 0865153728) LV V1 mean (test code = 71.40 cm/s 6514250308) Aortic valve mean 100.6 cm/s velocity (test code = 1779918856) Ao peak javier (test code = 132.3 cm/s 5358853171) Ao VTI (test code = 31.1 cm 3150440714) AV area by cont VTI (test 2.3 cm2 code = 8370719838) AV area peak javier (test 2.6 cm2 code = 8450358252) Ao max PG (test code = 7.00 mm[Hg] 7165615113) AV peak gradient (test mmHg code = 3363115762) AV valve area (test code 2.34 cm2 = 4092502436) AV mean gradient (test mmHg code = 4029857733) LA volume (BP) (test code 55.7 mL = 2582274014) LAV(MOD-sp2) (test code = 41.50 mL 0659455505) Radiology Study observation (narrative) (test code = 79560-9) ADDIS (test code = ADDIS) ?Left?Ventricle: Left [...] (98 kg) 2.13 sq meters 128/50 69 [facility] CenterLIP[facility] (92359)(TOTAL CHOLESTEROL, TRIGLYCERIDES, HDL)2021-04-07 13:07:05 Test Item Value Reference Range Interpretation Comments CHOL (test code = 107 mg/dL 120-200 L 7577139079) HDL (test code = 43 mg/dL >50 L 7355578388) HDLC RATIO (test code = See_Comment [Au tomated message] 9121905072) The system [employer] generated this result transmit theodora reference range : <=4.5. The refe rence range was not u sed to interpret th is result as normal/abnormal . TRIG (test code = 97 mg/dL 30-170 4338575957) LDL CHOL (test code = 45 mg/dL See_Comment [Auto mated message] 29133-1) The system [employer] generated this result transmit theodora reference range : <=160. The refe rence range was not u sed to interpret th is result as normal/abnormal . VLDL (test code = 19 mg/dL 5-60 1941197289) Lab Interpretation (test Abnormal code = 93702-8) [facility] CenterTR[facility]IN [id number] 12:56:02 Test Item Value Reference Interpretation Comments Range TROPONIN I (test <0.012 See_Comment [Automated code = 5384622094) message] The system which generated this result [...] biotin. Lab Interpretation Normal (test code = 55363-9) [facility] Metabolic Panel (NA, K, CL, CO2, GLUCOSE, BUN, CREATININE, CA)2021-04-07 12:55:16 Test Item Value Reference Range Interpretation Comments NA (test code = 140 mmol/L 135-145 0851595636) K (test code = 3.8 mmol/L 3.5-5.0 6934961454) CL (test code = 107 mmol/L 98-108 2839686167) CO2 TOTAL (test code = 27 mmol/L 23-31 3221242875) AGAP (test code = 2-16 1224905245) BUN (test code = 15 mg/dL 7-23 9993150162) GLUCOSE (test code = 91 mg/dL 70-110 9571184729) CREATININE (test code = 0.68 mg/dL 0.50-1.04 3038087971) CALCIUM (test code = 8.3 mg/dL 8.6-10.6 L 5273545760) eGFR (test code = mL/min/1.73m2 6089845688) ADDIS (test code = ADDIS) Association of [...] tests). Lab Interpretation Abnormal (test code = 13329-2) [facility] with [id number] 12:29:38 Test Item Value Reference Range Interpretation Comments WBC (test code = See_Comment [Automated 8440-2) message] The sy stem which generated this result transmitted reference range : 4.30 - 11.10 10*3/?L. The reference range was not used to interpret this result as normal/abnormal . RBC (test code = See_Comment [Automated 705-8) message] The sy stem which generated this [...] RDW-SD (test code = 39.7 fL 39.0-49.9 83642-7) RDW-CV (test code = 12.8 % 12.0-15.5 788-0) PLT (test code = See_Comment L [Automated 299-3) message] The sy stem which generated this result transmitted reference range : 166 - 358 10*3/ ?L. The reference r neetu was not used to interpret this result as normal/abnormal . MPV (test code = 12.4 fL 9.5-12.9 18013-9) IPF % (test code = 8.5 % 1.3-7.7 H Platelet count 6188081220) measured by fluorescence method. NRBC/100 WBC (test See_Comment [Automat ed code = 7899557409) message] The system which generated this result transmitted reference range : 0.0 - 10.0 /100 WBCs. The refer ence range was not u sed to interpret th is result as normal/abnormal . NRBC x10^3 (test code <0.01 See_Comment [Auto mated = 4123700894) message] The s ystem which generated this result transmitted reference range : 10*3/?L. The reference range was not used to interpret this result as normal/abnormal . GRAN MAT (NEUT) % 37.7 % (test code = 770-8) IMM GRAN % (test code 0.30 % = 2960305304) LYMPH % (test code = 46.9 % 736-9) MONO % (test code = 12.6 % 5905-5) EOS % (test code = 2.0 % 713-8) BASO % (test code = 0.5 % 706-2) GRAN MAT x10^3(ANC) 2.45 10*3/uL 1.88-7.09 (test code = 6620509427) IMM GRAN x10^3 (test <0.03 0.00-0.06 code = 1190051054) LYMPH x10^3 (test code 3.05 10*3/uL 1.32-3.29 = 731-0) MONO x10^3 (test code 0.82 10*3/uL 0.33-0.92 = 742-7) EOS x10^3 (test code = 0.13 10*3/uL 0.03-0.39 711-2) BASO x10^3 (test code 0.03 10*3/uL 0.01-0.07 = 704-7) Lab Interpretation Abnormal (test code = 41073-8) [facility] [id number] 06:52:52 Test Item Value Reference Interpretation Comments Range TROPONIN I (test <0.012 See_Comment [Automated code = 2870044478) message] The system which generated this result [...] biotin. Lab Interpretation Normal (test code = 63585-5) [facility] [id number] 01:41:00 Test Item Value Reference Interpretation Comments Range TROPONIN I (test <0.012 See_Comment [Automated code = 8558339943) message] The system which generated this result [...] biotin. Lab Interpretation Normal (test code = 03920-5) [facility] CenterN-[facility]MINAL [id number] 01:37:40 Test Item Value Reference Range Interpretation Comments NT-proBNP (test code 310 pg/mL See_Comment [Autom ated = 2683795582) message] The system which generated this result transmitted reference range : <=450. The reference range was not used to interpret this result as normal/abnormal . ADDIS (test code = ADDIS) Biotin has been reported to cause a negative bias, interpret results relative to patient's use of biotin. Lab Interpretation Normal (test code = 36771-9) [facility]. METABOLIC PANEL (85944)2021-04-07 01:29:18 Test Item Value Reference Range Interpretation Comments NA (test code = 140 mmol/L 135-145 2485571692) K (test code = 4.6 mmol/L 3.5-5.0 8848215296) CL (test code = 106 mmol/L 98-108 9506477680) CO2 TOTAL (test code = 23 mmol/L 23-31 4754665842) AGAP (test code = 2-16 2127723544) BUN (test code = 18 mg/dL 7-23 8693951762) GLUCOSE (test code = 129 mg/dL 70-110 H 3728200694) CREATININE (test code = 0.71 mg/dL 0.50-1.04 5088478899) TOTAL BILI (test code = 0.6 mg/dL 0.1-1.9 5392142778) CALCIUM (test code = 8.7 mg/dL 8.6-10.6 3439744894) T PROTEIN (test code = 6.5 g/dL 6.3-8.2 4484859014) ALBUMIN (test code = 4.4 g/dL 3.5-5.0 2338998758) ALK PHOS (test code = 93 U/L 34-122 8070842959) ALTv (test code = 25 U/L 5-35 1742-6) AST(SGOT) (test code = 39 U/L 13-40 4345061128) eGFR (test code = mL/min/1.73m2 1474016545) ADDIS (test code = ADDIS) Association of [...] tests). Lab Interpretation Abnormal (test code = 81907-5) [facility] CenterPROTHR[facility]BIN [facility] / [id number] 01:21:57 Test Item Value Reference Range Interpretation [...] tions. Lab Interpretation (test Normal code = 54450-0) [facility] WITH [id number] 01:17:36 Test Item Value Reference Range Interpretation [...] RDW-SD (test code = 40.0 fL 39.0-49.9 42686-6) RDW-CV (test code = 12.8 % 12.0-15.5 788-0) PLT (test code = See_Comment L [Automated 777-3) message] The sy stem which generated this result transmitted reference range : 166 - 358 10*3/ ?L. The reference r neetu was not used to interpret this result as normal/abnormal . MPV (test code = 11.8 fL 9.5-12.9 66802-7) IPF % (test code = 7.5 % 1.3-7.7 Platelet count 8379806344) measured by fluorescence method. NRBC/100 WBC (test See_Comment [Automat ed code = 0505787920) message] The system which generated this result transmitted reference range : 0.0 - 10.0 /100 WBCs. The refer ence range was not u sed to interpret th is result as normal/abnormal . NRBC x10^3 (test code <0.01 See_Comment [Auto mated = 6034201335) message] The s ystem which generated this result transmitted reference range : 10*3/?L. The reference range was not used to interpret this result as normal/abnormal . GRAN MAT (NEUT) % 45.7 % (test code = 770-8) IMM GRAN % (test code 0.40 % = 6511951941) LYMPH % (test code = 38.1 % 736-9) MONO % (test code = 13.0 % 5905-5) EOS % (test code = 2.1 % 713-8) BASO % (test code = 0.7 % 706-2) GRAN MAT x10^3(ANC) 3.04 10*3/uL 1.88-7.09 (test code = 9831854462) IMM GRAN x10^3 (test 0.03 10*3/uL 0.00-0.06 code = 8119609030) LYMPH x10^3 (test code 2.54 10*3/uL 1.32-3.29 = 731-0) MONO x10^3 (test code 0.87 10*3/uL 0.33-0.92 = 742-7) EOS x10^3 (test code = 0.14 10*3/uL 0.03-0.39 711-2) BASO x10^3 (test code 0.05 10*3/uL 0.01-0.07 = 704-7) Lab Interpretation Abnormal (test code = 65783-4) [facility] WITH [id number] 19:18:00 Test Item Value Reference Range Interpretation [...] RDW-SD (test code = 46.6 fL 39-49.9 57428-6) RDW-CV (test code = 13.7 % 12-15.5 788-0) PLT (test code = See_Comment L [Automated 777-3) message] The sy stem which generated this result transmitted reference range : 166 - 358 10*3/ ?L. The reference r neetu was not used to interpret this result as normal/abnormal . MPV (test code = 12.8 fL 9.5-12.9 21586-3) IPF % (test code = 7.3 % 1.3-7.7 2840150694) NRBC/100 WBC (test See_Comment [Automat ed code = 2234767665) message] The system which generated this result transmitted reference range : 0.0 - 10.0 /100 WBCs. The refer ence range was not u sed to interpret th is result as normal/abnormal . NRBC x10^3 (test code <0.01 See_Comment [Auto mated = 1467415110) message] The s ystem which generated this result transmitted reference range : 10*3/?L. The reference range was not used to interpret this result as normal/abnormal . GRAN MAT (NEUT) % 49.3 % (test code = 770-8) IMM GRAN % (test code 0.80 % = 6044192610) LYMPH % (test code = 36.8 % 736-9) MONO % (test code = 11.3 % 5905-5) EOS % (test code = 1.2 % 713-8) BASO % (test code = 0.6 % 706-2) GRAN MAT x10^3(ANC) 3.21 10*3/uL 1.88-7.09 (test code = 8650304150) IMM GRAN x10^3 (test 0.05 10*3/uL 0-0.06 code = 6520982583) LYMPH x10^3 (test code 2.40 10*3/uL 1.32-3.29 = 731-0) MONO x10^3 (test code 0.74 10*3/uL 0.33-0.92 = 742-7) EOS x10^3 (test code = 0.08 10*3/uL 0.03-0.39 711-2) BASO x10^3 (test code 0.04 10*3/uL 0.01-0.07 = 704-7) Lab Interpretation Abnormal (test code = 59678-2) [facility] WITH [id number] 16:29:00 Test Item Value Reference Range Interpretation Comments WBC (test code = See_Comment [Automated 5290-2) message] The sy stem which generated this [...] RDW-SD (test code = 40.8 fL 39-49.9 51840-5) RDW-CV (test code = 12.9 % 12-15.5 788-0) PLT (test code = See_Comment L [Automated 777-3) message] The sy stem which generated this result transmitted reference range : 166 - 358 10*3/ ?L. The reference r neetu was not used to interpret this result as normal/abnormal . MPV (test code = 11.5 fL 9.5-12.9 25888-7) IPF % (test code = 5.6 % 1.3-7.7 Platelet count 7327593864) measured by fluorescence method. NRBC/100 WBC (test See_Comment [Automat ed code = 2003971475) message] The system which generated this result transmitted reference range : 0.0 - 10.0 /100 WBCs. The refer ence range was not u sed to interpret th is result as normal/abnormal . NRBC x10^3 (test code <0.01 See_Comment [Auto mated = 2461467152) message] The s ystem which generated this result transmitted reference range : 10*3/?L. The reference range was not used to interpret this result as normal/abnormal . GRAN MAT (NEUT) % 47.5 % (test code = 770-8) IMM GRAN % (test code 0.60 % = 6480039507) LYMPH % (test code = 37.1 % 736-9) MONO % (test code = 12.2 % 5905-5) EOS % (test code = 2.0 % 713-8) BASO % (test code = 0.6 % 706-2) GRAN MAT x10^3(ANC) 2.56 10*3/uL 1.88-7.09 (test code = 5495647852) IMM GRAN x10^3 (test 0.03 10*3/uL 0-0.06 code = 5420367953) LYMPH x10^3 (test code 2.00 10*3/uL 1.32-3.29 = 731-0) MONO x10^3 (test code 0.66 10*3/uL 0.33-0.92 = 742-7) EOS x10^3 (test code = 0.11 10*3/uL 0.03-0.39 711-2) BASO x10^3 (test code 0.03 10*3/uL 0.01-0.07 = 704-7) Lab Interpretation Abnormal (test code = 35059-5) [facility] (NA, K, CL, CO2, GLUCOSE, BUN, CREATININE, CA)2019-03-06 14:02:00 Test Item Value Reference Range Interpretation Comments NA (test code = 140 mmol/L 135-145 0197110569) K (test code = 3.9 mmol/L 3.5-5 2625486186) CL (test code = 108 mmol/L 98-108 4169826792) CO2 TOTAL (test code = 24 mmol/L 23-31 1235871672) AGAP (test code = 2-16 4111864975) BUN (test code = 12 mg/dL 7-23 7429189315) GLUCOSE (test code = 87 mg/dL 70-110 2195420353) CREATININE (test code = 0.71 mg/dL 0.5-1.04 3267132112) CALCIUM (test code = 8.5 mg/dL 8.6-10.6 L 1517788052) eGFR Calculation mL/min/1.73m2 (Non-) (test code = 6555163503) eGFR Calculation mL/min/1.73m2 () (test code = 7962604242) ADDIS (test code = ADDIS) Association of [...] tests). Lab Interpretation Abnormal (test code = 37258-4) [facility] CenterD-DAVKU5151-83-02 22:50:00 Test Item Value Reference Interpretation Comments Range D-DIMER (test code = See_Comment [Autom ated 9158005638) message] The system which generated this result [...] diagnosis. Lab Interpretation Normal (test code = 69339-4) [facility] CenteraPTT2020-01-[facility] 22:42:00 Test Item Value Reference Range Interpretation Comments APTT Patient (test See_Comment [Automat ed code = 3173-2) message] The system which generated this result transmitted reference range : 23 - 38 Seconds . The reference range was not used to interpr et this result as normal/abnormal . ADDIS (test code = ADDIS) The [facility] patient population mean normal value for aPTT is 30 seconds. Lab Interpretation Normal (test code = 94708-3) [facility] CenterFIBRINOGEN2020-01-26 22:42:00 Test Item Value Reference Range Interpretation Comments Fibrinogen (test code = 5682682015) 483 mg/dL 214-470 H Lab Interpretation (test code = Abnormal 57281-6) [facility] CenterPROTHROMBIN TIME / [id number] 22:39:00 Test Item Value Reference Range Interpretation [...] tions. Lab Interpretation (test Normal code = 69771-9) [facility] CenterLACTATE [id number] 22:03:00 Test Item Value Reference Range Interpretation Comments LDH (test code = 7061929365) 447 U/L 300-600 Lab Interpretation (test code = Normal 04254-3) [facility] CenterFERRITIN [id number] 19:57:00 Test Item Value Reference Range Interpretation Comments FERRITIN (test code = 126.0 ng/mL 11-264 6378537247) ADDIS (test code = ADDIS) Biotin has been reported to cause a negative bias, interpret results relative to patient's use of biotin. Lab Interpretation (test Normal code = 83428-1) [facility] CenterCREATINE [id number] 19:20:00 Test Item Value Reference Range Interpretation Comments CK (test code = 0188890215) 43 U/L 33-194 Lab Interpretation (test code = Normal 57189-1) [facility] CenterVITAMIN B12, [id number] 19:10:00 Test Item Value Reference Range Interpretation Comments VIT B12 (test code = 288 pg/mL 240-930 6375225077) ADDIS (test code = ADDIS) Biotin has been reported to cause a positive bias, interpret results relative to patient's use of biotin. Lab Interpretation (test Normal code = 31645-8) [facility] CenterFOLATE2020-01-26 19:10:00 Test Item Value Reference Range Interpretation Comments FOLATE SER (test code = 15.3 ng/mL 3-20 9192707617) Lab Interpretation (test code = Normal 71513-9) [facility] CenterIRON [id number] 18:11:00 Test Item Value Reference Range Interpretation Comments IRON (test code = 5234384984) 35 ug/dL 50-160 L TIBC (test code = 3000689799) 272 ug/dL 250-410 % FE SAT (test code = 7256301991) 13 % 20-50 L Lab Interpretation (test code = Abnormal 55158-8) [facility] CenterCBC WITH [id number] 12:21:00 Test Item Value Reference Range Interpretation [...] RDW-SD (test code = 43.5 fL 39-49.9 71263-8) RDW-CV (test code = 13.1 % 12-15.5 788-0) PLT (test code = See_Comment L [Automated 777-3) message] The sy stem which generated this result transmitted reference range : 166 - 358 10*3/ ?L. The reference r neetu was not used to interpret this result as normal/abnormal . MPV (test code = 11.2 fL 9.5-12.9 43754-0) NRBC/100 WBC (test See_Comment [Automat ed code = 7526679887) message] The system which generated this result transmitted reference range : 0.0 - 10.0 /100 WBCs. The refer ence range was not u sed to interpret th is result as normal/abnormal . NRBC x10^3 (test code <0.01 See_Comment [Auto mated = 5576328102) message] The s ystem which generated this result transmitted reference range : 10*3/?L. The reference range was not used to interpret this result as normal/abnormal . GRAN MAT (NEUT) % 47.6 % (test code = 770-8) IMM GRAN % (test code 0.80 % = 6188264047) LYMPH % (test code = 38.6 % 736-9) MONO % (test code = 11.2 % 5905-5) EOS % (test code = 1.3 % 713-8) BASO % (test code = 0.5 % 706-2) GRAN MAT x10^3(ANC) 2.98 10*3/uL 1.88-7.09 (test code = 7615292888) IMM GRAN x10^3 (test 0.05 10*3/uL 0-0.06 code = 3568834597) LYMPH x10^3 (test code 2.41 10*3/uL 1.32-3.29 = 731-0) MONO x10^3 (test code 0.70 10*3/uL 0.33-0.92 = 742-7) EOS x10^3 (test code = 0.08 10*3/uL 0.03-0.39 711-2) BASO x10^3 (test code 0.03 10*3/uL 0.01-0.07 = 704-7) Lab Interpretation Abnormal (test code = 05382-8) [facility] METABOLIC PANEL (NA, K, CL, CO2, GLUCOSE, BUN, CREATININE, CA)2019-03-05 12:12:00 Test Item Value Reference Range Interpretation Comments NA (test code = 139 mmol/L 135-145 8471196385) K (test code = 3.7 mmol/L 3.5-5 0545713922) CL (test code = 110 mmol/L 98-108 H 2993362252) CO2 TOTAL (test code = 24 mmol/L 23-31 9560839170) AGAP (test code = 2-16 7826866446) BUN (test code = 13 mg/dL 7-23 8997299615) GLUCOSE (test code = 95 mg/dL 70-110 6180606585) CREATININE (test code = 0.74 mg/dL 0.5-1.04 7837790284) CALCIUM (test code = 7.9 mg/dL 8.6-10.6 L 5889316356) eGFR Calculation mL/min/1.73m2 (Non-) (test code = 9184660168) eGFR Calculation mL/min/1.73m2 () (test code = 1004579096) ADDIS (test code = ADDIS) Association of [...] tests). Lab Interpretation Abnormal (test code = 35540-2) [facility] [id number] 02:31:00 Test Item Value Reference Range Interpretation Comments FREE T3 (test code = 6658058909) 1.89 pg/mL 2.77-5.27 L Lab Interpretation (test code = Abnormal 14415-1) [facility] [id number] 01:16:00 Test Item Value Reference Range Interpretation Comments FREE T4 (test code = See_Comment [Autom ated message] 7234778599) The system [employer] generated this result transmitted ref erence range: 0.78 - 2 .20 ng/dL:. The ref erence range was not u sed to interpret this result as normal/abnor mal. Lab Interpretation (test Normal code = 31564-9) [facility] [id number] 23:31:00 Test Item Value Reference Range Interpretation Comments TSH (test code = See_Comment H Biotin has been [id number]) reported to cau se a negative bias, interpret resul ts relative to juan sotomayorbeulah's use of biotin. [Automated mess age] The system [employer] generated this result transmitted ref erence range: 0.45 - 4 .70 mIU/L. The refe rence range was not u sed to interpret this result as normal/abnor mal. Lab Interpretation (test Abnormal code = 83152-1) [facility]AL[facility]IN2020[facility] 17:19:00 Test Item Value Reference Range Interpretation Comments Procalcitonin (test 0.17 ng/mL <0.07 H code = 5434559648) ADDIS (test code = ADDIS) INTERPRETATION OF [...] lung abscess/empyema. For further information please refer to:[email or web address] Lab Interpretation Abnormal (test code = 59517-7) [facility] Center[facility]OLIC PANEL (NA, K, CL, CO2, GLUCOSE, BUN, CREATININE, CA)2019-03-04 13:36:00 Test Item Value Reference Range Interpretation Comments NA (test code = 141 mmol/L 135-145 1382929945) K (test code = 4.1 mmol/L 3.5-5 9787888058) CL (test code = 106 mmol/L 98-108 9698793298) CO2 TOTAL (test code = 23 mmol/L 23-31 2153643468) AGAP (test code = 2-16 9921332855) BUN (test code = 20 mg/dL 7-23 7963178727) GLUCOSE (test code = 90 mg/dL 70-110 7510665907) CREATININE (test code = 0.77 mg/dL 0.5-1.04 9265334224) CALCIUM (test code = 8.5 mg/dL 8.6-10.6 L 2752846214) eGFR Calculation mL/min/1.73m2 (Non-) (test code = 1567335973) eGFR Calculation mL/min/1.73m2 () (test code = 9637832575) ADDIS (test code = ADDIS) Association of [...] tests). Lab Interpretation Abnormal (test code = 63778-6) [facility] WITH [id number] 12:33:00 Test Item Value Reference Range Interpretation Comments WBC (test code = See_Comment [Automated 0367-2) message] The sy stem which generated this result transmitted reference range : 4.30 - 11.10 10*3/?L. The reference range was not used to interpret this result as normal/abnormal . RBC (test code = See_Comment [Automated 317-7) message] The sy stem which generated this [...] RDW-SD (test code = 43.0 fL 39-49.9 54986-6) RDW-CV (test code = 13.2 % 12-15.5 788-0) PLT (test code = See_Comment L [Automated 777-3) message] The sy stem which generated this result transmitted reference range : 166 - 358 10*3/ ?L. The reference r neetu was not used to interpret this result as normal/abnormal . MPV (test code = 11.7 fL 9.5-12.9 40983-6) NRBC/100 WBC (test See_Comment [Automat ed code = 8987839527) message] The system which generated this result transmitted reference range : 0.0 - 10.0 /100 WBCs. The refer ence range was not u sed to interpret th is result as normal/abnormal . NRBC x10^3 (test code <0.01 See_Comment [Auto mated = 3480445627) message] The s ystem which generated this result transmitted reference range : 10*3/?L. The reference range was not used to interpret this result as normal/abnormal . GRAN MAT (NEUT) % 69.5 % (test code = 770-8) IMM GRAN % (test code 0.40 % = 2782623832) LYMPH % (test code = 21.1 % 736-9) MONO % (test code = 8.3 % 5905-5) EOS % (test code = 0.4 % 713-8) BASO % (test code = 0.3 % 706-2) GRAN MAT x10^3(ANC) 6.40 10*3/uL 1.88-7.09 (test code = 9277693401) IMM GRAN x10^3 (test 0.04 10*3/uL 0-0.06 code = 7239615144) LYMPH x10^3 (test code 1.95 10*3/uL 1.32-3.29 = 731-0) MONO x10^3 (test code 0.77 10*3/uL 0.33-0.92 = 742-7) EOS x10^3 (test code = 0.04 10*3/uL 0.03-0.39 711-2) BASO x10^3 (test code 0.03 10*3/uL 0.01-0.07 = 704-7) Lab Interpretation Abnormal (test code = 55236-1) [facility] P[facility] W WO [id number] 08:05:49 1. No acute inflammatory or obstructive process.2. Sigmoid diverticulosis.3. Status post hysterectomy and cholecystectomy.4. Small hiatal hernia RL: [id number] AFC: [id number] End of report Electronically signedby Nasim Newton [...] hysterectomy and cholecystectomy.4. Small hiatal herniaRL: 3901AFC: 33581Mik of report [facility] CenterHEPATIC FUNCTION PANEL (54961) (ALB,T.PRO,BILI T,BU/BC,ALT,AST,ALK PHOS)2019-03-04 06:58:00 Test Item Value Reference Range Interpretation Comments TOTAL BILI (test code = 8267619511) 1.4 mg/dL 0.1-1.1 H BILI UNCON (test code = 5923026191) 1.0 mg/dL 0.1-1.1 BILI CONJ (test code = 5346807407) 0.0 mg/dL 0-0.3 T PROTEIN (test code = 1386752642) 8.0 g/dL 6.3-8.2 ALBUMIN (test code = 0210943033) 4.5 g/dL 3.5-5 ALK PHOS (test code = 2932169861) 71 U/L 34-122 ALTv (test code = 1742-6) 37 U/L 5-35 H AST(SGOT) (test code = 7308490074) 91 U/L 13-40 H Lab Interpretation (test code = Abnormal 89626-1) [facility] CenterMAGNESIUM2020-01-25 06:57:00 Test Item Value Reference Range Interpretation Comments MAGNESIUM (test code = 5944184117) 1.8 mg/dL 1.7-2.4 Lab Interpretation (test code = Normal 90797-3) [facility] CenterADC,CLC OR [facility] ONLY - INFLUENZA A & B DIRECT [id number] 03:21:00 Test Item Value Reference Range Interpretation Comments Influenza A (test code = 37791-0) Negative Negative Influenza B (test code = 36048-0) Negative Negative Lab Interpretation (test code = Normal 29532-8) [facility] WITH [id number] 03:19:00 Test Item Value Reference Range Interpretation Comments WBC (test code = See_Comment [Automated 4790-2) message] The system which generated this result transmit theodora reference range : 4.30 - 11.10 10*3/?L. The reference range was not used to interpret this result as normal/abnormal . RBC (test code = See_Comment [Automated 189-8) message] The system which generated this result [...] RDW-SD (test code = 40.7 fL 39-49.9 51172-9) RDW-CV (test code = 13.1 % 12-15.5 788-0) PLT (test code = See_Comment L [Automated 777-3) message] The system which generated this result transmit theodora reference range : 166 - 358 10*3/ ?L. The reference range was not u sed to interpret th is result as normal/abnormal . MPV (test code = 11.5 fL 9.5-12.9 23749-8) IPF % (test code = 6.2 % 1.3-7.7 Platelet count 7092480927) measured by fluorescence method. NRBC/100 WBC (test See_Comment [Automat ed code = 0546271294) message] The system which generated this result transmit theodora reference range : 0.0 - 10.0 /100 WBCs. The reference range was not used to interpret this result as normal/abnormal . NRBC x10^3 (test code <0.01 See_Comment [Auto mated = 4234627477) message] The system which generated this result transmit theodora reference range : 10*3/?L. The reference range was not used to interpret this result as normal/abnormal . GRAN MAT (NEUT) % 78.1 % (test code = 770-8) IMM GRAN % (test code 0.40 % = 6123404570) LYMPH % (test code = 12.1 % 736-9) MONO % (test code = 9.0 % 5905-5) EOS % (test code = 0.0 % 713-8) BASO % (test code = 0.4 % 706-2) GRAN MAT x10^3(ANC) 8.03 10*3/uL 1.88-7.09 H (test code = 8131773739) IMM GRAN x10^3 (test 0.04 10*3/uL 0-0.06 code = 0911230815) LYMPH x10^3 (test 1.24 10*3/uL 1.32-3.29 L code = 731-0) MONO x10^3 (test code 0.93 10*3/uL 0.33-0.92 H = 742-7) EOS x10^3 (test code <0.03 0.03-0.39 L = 711-2) BASO x10^3 (test code 0.04 10*3/uL 0.01-0.07 = 704-7) ADDIS (test code = ADDIS) Decreased platelets Lab Interpretation Abnormal (test code = 23887-2) [facility] CenterXR CHEST 1 [id number] 02:43:09Mild atelectasis or infiltrate in both medial [...] - 03/03/2019 8:52 PM CSTOrdering Physician: ELIZA PICKENSlinical Indication: cough Additional Clinical Information:Comparison: NoneTechnique: Portable chest obtained at 2049Findings: There is mild cardiomegaly. Left hemidiaphragm is obscured. Thereis a likely infiltrate or atelectasis in the left base and right base.IMPRESSIONMild atelectasis or infiltrate in both medial lung bases.RL: [id number] OF REPORTElectronically signedby Theodora Celestin at 03/03/2019 8:51 PMUnFre[facility] Met[facility] (NA, K, CL, CO2, GLUCOSE, BUN, CREATININE, CA)2019-03-04 02:38:00 Test Item Value Reference Range Interpretation Comments NA (test code = 136 mmol/L 135-145 0413165184) K (test code = 4.5 mmol/L 3.5-5 1159785394) CL (test code = 101 mmol/L 98-108 4676724299) CO2 TOTAL (test code = 26 mmol/L 23-31 8560069368) AGAP (test code = 2-16 8689309949) BUN (test code = 26 mg/dL 7-23 H 4496255527) GLUCOSE (test code = 138 mg/dL 70-110 H 5287796246) CREATININE (test code = 0.91 mg/dL 0.5-1.04 6721834295) CALCIUM (test code = 9.5 mg/dL 8.6-10.6 9606826572) eGFR Calculation mL/min/1.73m2 (Non-) (test code = 2747876462) eGFR Calculation mL/min/1.73m2 () (test code = 9305003548) ADDIS (test code = ADDIS) Association of [...] tests). Lab Interpretation Abnormal (test code = 87873-4) [facility] CenterLactic Acid Whole [id number] 02:17:00 Test Item Value Reference Range Interpretation Comments LACTIC ACID (test code = 1.21 mmol/L 0.5-2.2 7563169762) Lab Interpretation (test code = Normal 74126-8) [facility] CenterURINALYSIS2020-01-24 21:05:00 Test Item Value Reference Range Interpretation Comments APPEARANCE (test code = Hazy Clear A 3528376488) COLOR (test code = Sabina Yellow A 7614686626) PH (test code = 4.8-8.0 6318635446) SP GRAVITY (test code = 1.003-1.030 6254832228) GLU U QUAL (test code = Normal Normal 5106178864) BLOOD (test code = 1+ Negative A 6304987534) KETONES (test code = Negative Negative 5978106963) PROTEIN (test code = Negative Negative 2887-8) UROBILIN (test code = Normal Normal 7397422305) BILIRUBIN (test code = Negative Negative 3529006048) NITRITE (test code = Positive Negative A 4799118733) LEUK EMPERATRIZ (test code = 250/uL Negative A 4629834200) RBC/HPF (test code = See_Comment [Autom ated message] 3903382528) The system [employer] generated this result transmitted ref erence range: 0 - 3 HP F. The reference range was not used to int erpret this result as normal/abnormal . WBC/HPF (test code = See_Comment H [Autom ated message] 8105415995) The system [employer] generated this result transmitted ref erence range: 0 - 5 HP F. The reference range was not used to int erpret this result as normal/abnormal . BACTERIA (test code = Few Negative A 0241813838) SQ EPITH (test code = <1 See_Comment [Auto mated message] 8652544254) The system [employer] generated this result transmitted ref erence range: <=2 HPF. The reference range was not used to int erpret this result as normal/abnormal . Lab Interpretation (test Abnormal code = 10841-3) [facility] Center[facility]IN[facility]IS2020-01-24 21:05:00 Test Item Value Reference Range Interpretation Comments APPEARANCE (test code = Hazy Clear A 3552648488) COLOR (test code = Sabina Yellow A 0264043421) PH (test code = 4.8-8.0 3928347297) SP GRAVITY (test code = 1.003-1.030 2650261634) GLU U QUAL (test code = Normal Normal 6401196154) BLOOD (test code = 1+ Negative A 8776269109) KETONES (test code = Negative Negative 4347436030) PROTEIN (test code = Negative Negative 2887-8) UROBILIN (test code = Normal Normal 6113553333) BILIRUBIN (test code = Negative Negative 6125258923) NITRITE (test code = Positive Negative A 9948946637) LEUK EMPERATRIZ (test code = 250/uL Negative A 9592578688) RBC/HPF (test code = See_Comment [Autom ated message] 3853566486) The system [employer] generated this result transmitted ref erence range: 0 - 3 HP F. The reference range was not used to int erpret this result as normal/abnormal . WBC/HPF (test code = See_Comment H [Autom ated message] 2200823733) The system [employer] generated this result transmitted ref erence range: 0 - 5 HP F. The reference range was not used to int erpret this result as normal/abnormal . BACTERIA (test code = Few Negative A 6401685139) SQ EPITH (test code = <1 See_Comment [Auto mated message] 9075314447) The system [employer] generated this result transmitted ref erence range: <=2 HPF. The reference range was not used to int erpret this result as normal/abnormal . Lab Interpretation (test Abnormal code = 48253-0) [facility] METABOLIC PANEL (60415)2018-09-27 16:33:00 Test Item Value Reference Range Interpretation Comments NA (test code = 142 mmol/L 135-145 5251338033) K (test code = 4.4 mmol/L 3.5-5 0978451644) CL (test code = 108 mmol/L 98-108 1014696808) CO2 TOTAL (test code = 25 mmol/L 23-31 2099640775) AGAP (test code = 2-16 9136145936) BUN (test code = 18 mg/dL 7-23 8427760248) GLUCOSE (test code = 87 mg/dL 70-110 6658730013) CREATININE (test code 0.73 mg/dL 0.5-1.04 = 6001629208) TOTAL BILI (test code 0.5 mg/dL 0.1-1.1 = 9790406506) CALCIUM (test code = 9.4 mg/dL 8.6-10.6 2006178255) T PROTEIN (test code = 7.0 g/dL 6.3-8.2 4246756221) ALBUMIN (test code = 4.4 g/dL 3.5-5 1761049649) ALK PHOS (test code = 71 U/L 34-122 8619318449) ALT(SGPT) (test code = 24 U/L 9-51 6594390078) AST(SGOT) (test code = 21 U/L 13-40 1825563305) eGFR Calculation mL/min/1.73m2 (Non-) (test code = 1906157348) eGFR Calculation mL/min/1.73m2 () (test code = 6784112094) ADDIS (test code = ADDIS) Association of [...] or urine or abnormalities in imaging tests). [facility] WITH [id number] 15:38:00 Test Item Value Reference Range Interpretation Comments WBC (test code = See_Comment [Automated message] 6690-2) The system [employer] generated this result transmitted ref erence range: 4.30 - 1 1.10 10*3/?L. The re ference range was not u sed to interpret this result as normal/abnor mal. RBC (test code = See_Comment [Automated message] 789-8) The system [employer] generated this result transmitted ref erence range: [...] RDW-SD (test code 41.8 fL 39-49.9 = 19170-9) RDW-CV (test code 13.2 % 12-15.5 = 788-0) PLT (test code = See_Comment [Automated message] 777-3) The system whic h generated this result transmitted ref erence range: 166 - 35 8 10*3/?L. The re ference range was not u sed to interpret this result as normal/abnor mal. MPV (test code = 10.8 fL 9.5-12.9 71880-5) NRBC/100 WBC (test See_Comment [Automat ed message] code = 2333961976) The syste m which generated this result transmitted ref erence range: 0.0 - 10 .0 /100 WBCs. The refer ence range was not u sed to interpret this result as normal/abnor mal. NRBC x10^3 (test <0.01 See_Comment [Automated message] code = 7783301122) The syste m which generated this result transmitted ref erence range: 10*3/?L. The reference range was not used to interpr et this result as normal/abnormal . GRAN MAT (NEUT) % 42.3 % (test code = 770-8) IMM GRAN % (test 0.60 % code = 0572584239) LYMPH % (test code 43.3 % = 736-9) MONO % (test code 11.2 % = 5905-5) EOS % (test code = 2.0 % 713-8) BASO % (test code 0.6 % = 706-2) GRAN MAT 2.30 10*3/uL 1.88-7.09 x10^3(ANC) (test code = 5732668898) IMM GRAN x10^3 0.03 10*3/uL 0-0.06 (test code = 8537906733) LYMPH x10^3 (test 2.35 10*3/uL 1.32-3.29 code = 731-0) MONO x10^3 (test 0.61 10*3/uL 0.33-0.92 code = 742-7) EOS x10^3 (test 0.11 10*3/uL 0.03-0.39 code = 711-2) BASO x10^3 (test 0.03 10*3/uL 0.01-0.07 code = 704-7) [facility]
[2022-07-01 12:45] LABS: Absolute Lymphocytes (CBC) 3.6 K/uL (0.7-4.9); Hematocrit 39.8 % (36.0-45.0); Lymphocytes % 38.6 % (15.3-44.8); MPV 9.7 fL (7.6-11.3); RBC Red Blood Cell Count 4.68 M/uL (3.86-4.86)
[2022-07-01] MEDS ORDERED: ASPIRIN 81 MG CHEWABLE TABLET ONE (12:48)
[2022-07-01 13:06] LABS: Albumin 3.8 g/dL (3.4-5.0); Bilirubin Direct 0.1 mg/dL (0-0.2); Bilirubin Indirect, Calculated 0.3 mg/dL (0.2-0.8); Bilirubin Total 0.4 mg/dL (0.2-1.0); Protein, Total 7.2 g/dL (6.4-8.2); Troponin High Sensitivity 13.8 pg/mL (<58.9)
[2022-07-01 13:08] LABS: Potassium 4.2 mEq/L (3.5-5.1)
--- NOTE | 2022-07-01 13:35 | RAD REPORT ---
EXAM DESCRIPTION: Kalpana Single View07/01/2022 1:26 pm CLINICAL HISTORY: Chest pain COMPARISON: June 25, 2022 FINDINGS: The lungs appear clear of acute infiltrate. The heart is mildly enlarged. PICC line in pl renee IMPRESSION: No acute abnormalities displayed
--- NOTE | 2022-07-01 17:13 | RAD REPORT ---
EXAM DESCRIPTION: CT - Chest For Pe Angio - 07/01/2022 4:36 pm CLINICAL HISTORY: Chest pain COMPARISON: June 25, 2022 TECHNIQUE: Dynamically enhanced axial 3 mm thick images of the chest were obtained during administra tion of 100 mL Isovue 370 IV contrast. Coronal and oblique reconstruction images were generated and r eviewed. Exam utilizes a protocol for optimal evaluation of pulmonary arterial tree. Maximum intensity projections 3D imaging was utilized All CT scans are performed using dose optimization technique as appropriate and may include automated exposure control or mA/KV adjustment according to patient size. FINDINGS: A pulmonary embolus is not seen. A thoracic aortic aneurysm is not noted. A pleural effusion is not seen. A pericardial effusion is not seen. A lung consolidation is not present. Small to moderate hiatal hernia Prominence of the central pulmonary arteries may indicate pulmonary arterial hypertension Calcified plaque proximal left subclavian artery results in a high-grade stenosis IMPRESSION: Negative for a pulmonary embolism.
--- NOTE | 2022-07-01 17:33 | EDPHYS ---
Physician Documentation [facility] Name: Ruthie Smith Age: 81 yrs Sex: Female : 1940 Arrival Date: 07/01/2022 Time: 12:18 Bed 18 Private MD: ED Physician Malick Villanueva HPI: 07/01 16:47 This 81 yrs old Female presents to ER via EMS with complaints of Chest Pain. rt 16:48 Patient presents to the ED with chest pain, shortness of breath, somewhat dizziness rt starting earlier today. Pain is aching nature, nonradiating. No other aggravating alleviating factors. Patient denies other acute complaints at this time. Historical: - Allergies: 12:24 Azithromycin; bp 12:24 Codeine; bp 12:24 Levofloxacin; bp 12:24 Vicodin; bp - Home Meds: 12:24 losartan 50 mg Oral tab 1 tab once daily [Active]; bp - PMHx: 12:24 COPD; Hypertension; sepsis-uro; urinary; Thyroid problem; UTI; bp - Immunization history:: Adult Immunizations up to date. - Social history:: Smoking status: Patient denies any tobacco usage or history of. - Family history:: not pertinent. ROS: 16:48 Constitutional: Negative for fever, chills, and weight loss, Abdomen/GI: Negative for rt abdominal pain, nausea, vomiting, diarrhea, and constipation, MS/Extremity: Negative for injury and deformity, Skin: Negative for injury, rash, and discoloration, Psych: Negative for depression, anxiety, suicide ideation, homicidal ideation, and hallucinations. 16:48 Cardiovascular: Positive for chest pain, Negative for edema. 16:48 Cardiovascular: Positive for 16:48 Respiratory: Positive for shortness of breath, Negative for cough. Exam: 16:48 Constitutional: This is a well developed, well nourished patient who is awake, alert, rt and in no acute distress. Head/Face: Normocephalic, atraumatic. Chest/axilla: Normal chest wall appearance and motion. Nontender with no deformity. No lesions are appreciated. Cardiovascular: Regular rate and rhythm with a normal S1 and S2. No gallops, murmurs, or rubs. Normal PMI, no JVD. No pulse deficits. Respiratory: Lungs have equal breath sounds bilaterally, clear to auscultation and percussion. No rales, rhonchi or wheezes noted. No increased work of breathing, no retractions or nasal flaring. Abdomen/GI: Soft, non-tender, with normal bowel sounds. No distension or tympany. No guarding or rebound. No evidence of tenderness throughout. Skin: Warm, dry with normal turgor. Normal color with no rashes, no lesions, and no evidence of cellulitis. MS/ Extremity: Pulses equal, no cyanosis. Neurovascular intact. Full, normal range of motion. Neuro: Awake and alert, GCS 15, oriented to person, place, time, and situation. Cranial nerves II-XII grossly intact. Motor strength 5/5 in all extremities. Sensory grossly intact. Cerebellar exam normal. Normal gait. Psych: Awake, alert, with orientation to person, place and time. Behavior, mood, and affect are within normal limits. 16:48 ECG was reviewed by the Attending Physician. Vital Signs: 12:23 BP 154 / 70; Pulse 95; Resp 16; Temp 98; Pulse Ox 97% ; bp 12:26 BP 134 / 75; Pulse 85; Resp 16; Pulse Ox 96% ; bp 14:16 BP 96 / 56; Pulse 73; Resp 16; Pulse Ox 97% ; bp 15:14 BP 98 / 48; Pulse 80; Resp 15; Pulse Ox 96% ; bp 16:21 BP 107 / 68; Pulse 75; Resp 18 S; Pulse Ox 99% on R/A; kc6 MDM: 12:26 Patient medically screened. rt 19:45 Differential diagnosis: abnormal EKG, pneumonia, pneumothorax, pulmonary embolus, rt thoracic aortic disection. HEART Score: History: Moderately Suspicious (1), ECG: Non specific repolarization disturbance / LBTB / PM (1), Age: > or = 65 years (2), Risk Factors: 1 or 2 risk factors (1), Troponin: < or = 1 x Normal Limit (0), Total Score = 5. The patient was given aspirin in the Emergency Department. Data reviewed: vital signs, nurses notes, lab test result(s), EKG, radiologic studies. Consideration of Admission/Observation Escalation of care including admission/observation considered. Vasquez with Dr. Ma, the patient's physician. He states that he does not believe the patient needs be admitted to the hospital, recommends repeat troponin as well as D-dimer be performed. Repeat troponin is unremarkable, D-dimer is elevated but with a negative CT scan, again discussed this with Dr. 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 Management of patient was discussed with the following: Primary Care Provider: . Counseling: I had a detailed discussion with the patient and/or guardian regarding: the historical points, exam findings, and any diagnostic results supporting the discharge/admit diagnosis, lab results, radiology results, the need for outpatient follow up. 07/01 12:26 Order name: Basic Metabolic Panel; Complete Time: 13:24 rt 07/01 12:26 Order name: CBC with Diff; Complete Time: 13:24 rt 07/01 12:26 Order name: LFT's; Complete Time: 13:24 rt 07/01 12:26 Order name: NT PRO-BNP; Complete Time: 13:24 rt 07/01 12:26 Order name: Troponin HS; Complete Time: 13:24 rt 07/01 14:41 Order name: Troponin High Sensitivity; Complete Time: 15:42 rt 07/01 14:41 Order name: D-Dimer; Complete Time: 15:42 rt 07/01 12:26 Order name: XRAY Chest (1 view); Complete Time: 13:39 rt 07/01 16:09 Order name: CT Chest For PE Angio; Complete Time: 17:24 rt 07/01 12:26 Order name: EKG; Complete Time: 12:27 rt 07/01 12:26 Order name: Cardiac monitoring; Complete Time: 12:38 rt 07/01 12:26 Order name: EKG - Nurse/Tech; Complete Time: 12:38 rt 07/01 12:26 Order name: IV Saline Lock; Complete Time: 12:38 rt 07/01 12:26 Order name: Labs collected and sent; Complete Time: 12:38 rt 07/01 12:26 Order name: O2 Per Protocol; Complete Time: 12:38 rt 07/01 12:26 Order name: O2 Sat Monitoring; Complete Time: 12:38 rt 07/01 15:11 Order name: Labs - recollect needed: recollect ddimer, collect in blue tube; Complete bd Time: 15:51 EC:48 Rate is 86 beats/min. Rhythm is regular, Normal Sinus Rhythm with No ectopy. Left axis rt deviation noted. IA interval is normal. QRS interval is normal. QT interval is normal. No Q waves. Clinical impression: NSR w/ Non-specific ST/T Changes. Interpreted by me. Administered Medications: 12:53 Drug: Aspirin PO Chewable Tablet 324 mg Route: PO; bp Disposition Summary: 07/01/22 17:32 Discharge Ordered Location: Home rt Problem: new rt Symptoms: have improved rt Condition: Stable rt Diagnosis - Chest pain, unspecified rt Followup: rt - With: Eleazar Page MD - When: 5 - 6 days - Reason: Discharge Instructions: - Discharge Summary Sheet rt - Nonspecific Chest Pain, Adult rt Forms: - Medication Reconciliation Form rt - Thank You Letter rt - Antibiotic Education rt - Prescription Opioid Use rt Signatures: Dispatcher [employer] EDMS Verito Cha Brian, RN RN bp Malick Villanueva MD MD rt
--- NOTE | 2022-07-01 17:33 | ER ---
Nurse's Notes [facility] Name: Ruthie Smith Age: 81 yrs Sex: Female : 1940 Arrival Date: 07/01/2022 Time: 12:18 Bed 18 Private MD: Diagnosis: Chest pain, unspecified Presentation: 07/01 12:23 Chief complaint: EMS states: CHEST PAIN, SOB AND NEAR SYNCOPE. Coronavirus screen: At bp this time, the client does not indicate any symptoms associated with coronavirus-19. Ebola Screen: No symptoms or risks identified at this time. Initial Sepsis Screen: Does the patient meet any 2 criteria? No. Patient's initial sepsis screen is negative. Does the patient have a suspected source of infection? No. Patient's initial sepsis screen is negative. Risk Assessment: Do you want to hurt yourself or someone else? Patient reports no desire to harm self or others. Onset of symptoms was July 01, 2022. Care prior to arrival: IV initiated. 22 GA, in the left hand, Glucose check: 129. 12:23 Method Of Arrival: EMS: [facility] bp 12:23 Acuity: TOLU 3 bp Triage Assessment: 12:24 General: Appears in no apparent distress. comfortable, Behavior is calm, cooperative, bp appropriate for age. Pain: Denies pain. EENT: No deficits noted. Neuro: No deficits noted. Cardiovascular: Rhythm is sinus rhythm. Respiratory: No deficits noted. GI: No signs and/or symptoms were reported involving the gastrointestinal system. : No signs and/or symptoms were reported regarding the genitourinary system. Derm: No deficits noted. Musculoskeletal: No deficits noted. Historical: - Allergies: 12:24 Azithromycin; bp 12:24 Codeine; bp 12:24 Levofloxacin; bp 12:24 Vicodin; bp - Home Meds: 12:24 losartan 50 mg Oral tab 1 tab once daily [Active]; bp - PMHx: 12:24 COPD; Hypertension; sepsis-uro; urinary; Thyroid problem; UTI; bp - Immunization history:: Adult Immunizations up to date. - Social history:: Smoking status: Patient denies any tobacco usage or history of. - Family history:: not pertinent. Screenin:25 [facility] ED Fall Risk Assessment (Adult) History of falling in the last 3 months, bp including since admission No falls in past 3 months (0 pts). Abuse screen: Denies threats or abuse. Denies injuries from another. Nutritional screening: No deficits noted. Tuberculosis screening: No symptoms or risk factors identified. Assessment: 12:25 General: SEE TRIAGE NOTE. bp 13:25 Reassessment: Patient appears in no apparent distress at this time. No changes from kc6 previously documented assessment. Patient and/or family updated on plan of care and expected duration. Pain level reassessed. Patient is alert, oriented x 3, equal unlabored respirations, skin warm/dry/pink. 14:16 Reassessment: Patient appears in no apparent distress at this time. Patient and/or bp family updated on plan of care and expected duration. Pain level reassessed. 15:15 Reassessment: Patient appears in no apparent distress at this time. Patient is alert, bp oriented x 3, equal unlabored respirations, skin warm/dry/pink. 16:15 Reassessment: Patient appears in no apparent distress at this time. No changes from kc6 previously documented assessment. Patient and/or family updated on plan of care and expected duration. Pain level reassessed. Patient is alert, oriented x 3, equal unlabored respirations, skin warm/dry/pink. 17:49 Pain: Pain began. ap3 17:49 Pain: ap3 Vital Signs: 12:23 BP 154 / 70; Pulse 95; Resp 16; Temp 98; Pulse Ox 97% ; bp 12:26 BP 134 / 75; Pulse 85; Resp 16; Pulse Ox 96% ; bp 14:16 BP 96 / 56; Pulse 73; Resp 16; Pulse Ox 97% ; bp 15:14 BP 98 / 48; Pulse 80; Resp 15; Pulse Ox 96% ; bp 16:21 BP 107 / 68; Pulse 75; Resp 18 S; Pulse Ox 99% on R/A; kc6 ED Course: 12:23 Patient arrived in ED. bp 12:24 Triage completed. bp 12:24 Arm band placed on. bp 12:25 Patient has correct armband on for positive identification. Bed in low position. Call bp light in reach. Side rails up X2. Client placed on continuous cardiac and pulse oximetry monitoring. NIBP monitoring applied. 12:25 Maintain EMS IV. Dressing intact. Good blood return noted. Site clean \T\ dry. Gauge \T\ bp site: 22 GA LEFT HAND. Patient maintains SpO2 saturation greater than 95% on room air. 12:26 Malick Villanueva MD is Attending Physician. rt 12:26 Jb Coleman, RN is Primary Nurse. bp 12:49 EKG done, by ED staff, reviewed by Malick Villanueva MD. em1 13:28 XRAY Chest (1 view) In Process Unspecified. EDMS 16:38 CT Chest For PE Angio In Process Unspecified. EDMS 17:32 Eleazar Page MD is Referral Physician. rt 17:49 No provider procedures requiring assistance completed. ap3 17:54 IV discontinued, intact, bleeding controlled, No redness/swelling at site. Pressure ap3 dressing applied. Administered Medications: 12:53 Drug: Aspirin PO Chewable Tablet 324 mg Route: PO; bp Medication: 12:25 VIS not applicable for this client. bp Outcome: 17:32 Discharge ordered by MD. rt 17:54 Discharged to home ambulatory, with family. ap3 17:54 Condition: good 17:54 Discharge instructions given to patient, Instructed on discharge instructions, follow up and referral plans. Demonstrated understanding of instructions, follow-up care. 17:54 Patient left the ED. ap3 Signatures: Dispatcher [employer] EDMS MianWilliam em1 Jb Coleman, RN RN Farrah Santiago RN RN ap3 Marta Orellana RN RN kc6 Malick Villanueva MD MD rt
[2022-07-01 18:46] VITALS: TEMP 98
[2022-07-01 18:51] VITALS: BP 107/68; O2SAT 99
--- NOTE | 2022-07-02 05:34 | EKG ---
Test Date: 2022-07-01 Test Time: 12:40:38 Acupressurist: KIMBERLY MEASUREMENT RESULTS: Intervals: Rate: 86 WV: 158 QRSD: 86 QT: 358 QTc: 428 [place]: P: 71 WV: 158 QRS: -40 T: 3 INTERPRETIVE STATEMENTS: Normal sinus rhythm Left axis deviation Possible Anterior infarct, age undetermined Abnormal ECG Compared to ECG 05/05/2022 01:11:14 Left-axis deviation now present Myocardial infarct finding still present Electronically Signed On 07-02-22 05:33:29 CDT by Jackson Gan
== END 2022-07-01 17:54 | disposition home or self-care (01) ==
LOC: ER 12:18
DX: R07.9 Chest pain, unspecified (principal); R06.02 Shortness of breath; I10 Essential (primary) hypertension; J44.9 Chronic obstructive pulmonary disease, unspecified; Z88.3 Allergy status to other anti-infective agents; Z88.5 Allergy status to narcotic agent
CPT/HCPCS: 85025; 80048; 36415; 85379; 80076; 84484 ×2; 83880; 71275; 71045; Q9967; 93005

== ENCOUNTER 2022-08-13 10:11 | Emergency (ER) | payer MEDICARE, OTHER ==
--- OUTSIDE RECORDS SUMMARY | 2022-08-13 10:23 | XMS REPORT | Continuity of Care Document ---
:1940 Author Organization [facility] t Address [address] [place] [address] [address] [place] [address] Care Team Providers Name Role Phone AMARA GRAMAJO Primary Care Physician Unavailable Gilles Gramajo Attending Clinician Unavailable Jackson Enamorado MD Attending Clinician Figueroa Adam MA Attending Clinician Unavailable SANDIE ALMARAZ Attending Clinician Unavailable Sandie Almaraz NP Attending Clinician Faby Blair MD Attending Clinician Martha Whitman MD Attending Clinician Slime Scott NP Attending Clinician Parisa Ramirez MA Attending Clinician Unavailable FAWN STERLING Attending Clinician Unavailable Yesenia WHITLOCK, Fawn Attending Clinician FERMIN ESQUEDA Attending Clinician Unavailable Fermin Esqueda MD Attending Clinician Tiana Martinez MD Attending Clinician [phone] Mat BILLBOARD INSTALLER, Millicent Attending Clinician Ene Pappas RN Attending Clinician Unavailable WALT MAYERS Attending Clinician Unavailable Walt Mayers MD Attending Clinician Doctor Unassigned, [place] Attending Clinician Unavailable Vasquez MARTIN, Carroll Jeffers Attending Clinician Unavailable REMY DONAHUE Attending Clinician Unavailable Augustine MCCLELLANDP, Marta Attending Clinician Rowan WHITLOCK, Remy Attending Clinician EWELINA NORIEGA Attending Clinician Unavailable Ewelina Noriega MD Attending Clinician [facility][1]P, Magalys Braga Attending Clinician [phone] Nurse, [facility] Attending Clinician Unavailable Avelino WHITLOCK, Jimmy Quintero Attending Clinician Ely Rodriguez RN Attending Clinician Unavailable Eliza Bowie MD Attending Clinician Katlin WHITLOCK, Franky Attending Clinician Jodee Johnston RN Attending Clinician [...] Policy Number Effective Date Expiration Date Barbara TABARES/AARP [id number] 2019 MEDICARE 00:00:00 ADVANTAGE AARP Medicare C1 [id number] Common Spi rit - [facility] AARP Medicare C1 [id number] Common Spi rit - [facility] Problems Condition Condition Condition Status Onset Resolution Last Treating Co mments Source Name Details Category Date Date Treatment Clinician Date Obesity Obesity Disease Active Univers 3-16 ity of 00:00: [place] [facility] 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 ethodi hernia) hernia) 03-13 st 00:00: Hospita 00 l Anemia Anemia Disease [...] Active U nivers 2-27 ity of 00:00: [place] [facility] Complicate Complicate Disease Active U [...] it y of on on 00:00: [place] 00 Medical Branch Thrombocyt Thrombocyt [...] pruritus 2-03 ity of 00:00: [place] 00 [facility] Branch S/P S/P Disease Active Univers hysterecto [...] ity of cystocele cystocele [place] Dyspepsia Dyspepsia Disease Active Overview: Univers and other and other 09-09 Formattin i ty of specified specified 00:00: g of this [place] disorders disorders 00 note Medi kj of of might be Branch function function different of stomach of stomach from the original. pain SI - Stress Problem Active Common Stress incontinen Spirit incontinen ce - [facility] Allergies, Adverse Reactions, Alerts Allergy [...] Medical s Branch CODEINE DRUG Active Palpitations 2007-0 Uni vers INGREDI 1-11 ity of 00:00: [address] Branch azithrom azithrom Active Unknown Commo n ycin ycin Spirit - [facility] Family History Family Member Diagnosis Comments Start Date Stop Date Source Natural brother Thyroid cancer [facility] Natural father Kidney failure Method [facility] Natural mother [facility] Natural sister Diabetes [facility] Natural sister Kidney failure Method [facility] Natural sister Ovarian cancer Method [facility] Social History Social Habit Start Date Stop Date Quantity Comments Source History SDOH University o f Alcohol Frequency [facility] edical Branch History SDOH University o f Alcohol Std Drinks [place] [facility] [place] History SDOH University o f Alcohol Binge [place] [facility] Gender identity [facility] Sexual orientation Method [facility] History of Tobacco Common Spirit [facility] History of Social 2022-05-26 2022-05-[address] function 00:00:00 00:00:00 Hospital Exposure to 2022-04-13 2022-04-23 Not sure University of SARS-CoV-2 (event) 00:00:00 10:48:00 [facility] Alcohol intake 2022-04-20 2022-04-20 Lifetime Yazidi 00:00:00 00:00:00 non-drinker Hospital (finding) Tobacco use and 2021-10-16 2021-10-16 Smokeless [facility]idi exposure 00:00:00 00:00:00 tobacco non-user Hospital Cigarettes smoked 2021-10-16 2021-10-[address] current (pack per 00:00:00 00:00:00 Hospita l day) - Reported Cigarette 2021-10-16 2021-10-16 [facility]idi pack-years 00:00:00 00:00:00 Hospital Tobacco Comment 2018-01-18 2018-01-18 quit in 2012. Univer sity of 00:00:00 00:00:00 [facility] Alcohol Comment 2016-03-13 2016-03-13 Rare Universit y of 00:00:00 00:00:00 [facility] Sex Ass[birth year] At [birth year] Yazidi 00:00:00 00:00:00 Hospital Smoking Status Start Date Stop Date Source Ex-smoker 2021-10-16 00:00:00 2021-10-16 00:00:00 [facility] Medications Ordered Filled Start Stop Current Ordering Indication Dosage Frequency Signature Comments Components Source Medication Medication Date Date Medication? Clinician (SIG) Name Name Fluticasone 2022-0 2022- No 1{puff} Inhale 1 Univers -Salmeterol 3-16 [...] Hospit a 02 daily. l polyethylen 2023-0 3- No 4000mL Take 4,000 Methodi e glycol 2-08 02-09 mL by (G5) 00:00: 05:59 mouth once Hospita 236-22.74-6 00 :00 for 1 l .74 -5.86 dose. gram solution polyethylen 3-0 3- No 4000mL Take 4,000 Methodi e glycol 2-09 09-09 mL by Not iT (G5) 00:00: 05:59 mouth once Hospita 236-22.74-6 00 :00 for 1 l .74 -5.86 dose. gram solution polyethylen 3-0 3- No 4000mL Take 4,000 Methodi e glycol 2-08 -[address] (G5) 00:00: 05:59 mouth once Hospita 236-22.74-6 00 :00 for 1 l .74 -5.86 dose. gram solution polyethylen 2023-0 2023- No 4000mL Take 4,000 Methodi e glycol 2-08 02-[address] (G5) 00:00: 05:59 mouth once Hospita 236-22.74-6 00 :00 for 1 l .74 -5.86 dose. gram solution polyethylen 2023-0 2023- No 4000mL Take 4,000 Methodi e glycol 2-08 02-[address] (G5) 00:00: 05:59 mouth once Hospita 236-22.74-6 00 :00 for 1 l .74 -5.86 dose. gram solution polyethylen 2023-0 2023- No 4000mL Take 4,000 Methodi e glycol 2- 02-[address] (G5) 00:00: 05:59 mouth once Hospita 236-22.74-6 00 :00 for 1 l .74 -5.86 dose. gram solution lactobacill 2022-0 2022- No 1mg 1 mg, Univ ers us 03-09 Oral, ONCE ity of acidophilus 19:30: 19:49 NOW, 1 [facility] as tablet 1 mg 00 :00 dose, On [facility] Branch 03/09/22 at 1330, JOHN ketorolac 2022-0 2022- No 10mg 10 mg, Unive rs (TORADOL) 03-09 Oral, ONCE ity of tablet 10 19:30: 19:49 NOW, 1 [place] mg 00 :00 dose, On Medical [facility] Branch 03/09/22 at 1330, JOHN amoxicillin 2022-0 2022- No 1{tbl} 1 tablet, Univers -clavulanat 03-09 Oral, ONCE i ty of e 19:15: 19:49 NOW, 1 [place] (AUGMENTIN) 00 :00 dose, On [facility] 875-125 mg Mon Branch per tablet 03/09/22 at 1 tablet 1315, Routine
Reason for Anti-Infec tive: Documented Infection< br>Documen theodora Infection Site: HEENT
D uration of Therapy: Other (see Comments) cefpodoxime 2022-0 Yes [id number] 200mg Take 1 Univers 200 mg 1-30 tablet by ity of tablet 00:00: mouth in [place] 00 the Medical morning Branch and 1 tablet in the evening. hyoscyamine 2022-[id number] 2 Univers sulfate 1-30 tablets ity of (LEVSIN/SL) 00:00: under the [place] 0.125 mg 00 tongue Medical sublingual every 6 Branch tablet (six) hours as needed (Abdominal pain or cramping). meloxicam 2022-0 Yes [id number] 15mg Take 1 U nivers 15 mg 1-30 tablet by ity of tablet 00:00: mouth in [place] 00 the Medical morning. Branch acetaminoph 2022-0 Yes [id number] 650mg Take 1 Univers en (TYLENOL 1-30 tablet by ity of ARTHRITIS 00:00: mouth [place] PAIN) 650 00 every 8 Medical mg CR (eight) Branch tablet hours as needed for Pain. Saccharomyc 0 Yes [id number] 250mg Take 1 Univers es 1-30 capsule by ity of boulardii 00:00: mouth in [facility] s (FLORASTOR) 00 the Medical 250 mg morning Branch capsule and 1 capsule in the evening. cefpodoxime 2022-0 Yes [id number] 200mg Take 1 Univers 200 mg 1-30 tablet by ity of tablet 00:00: mouth in [place] 00 the Medical morning Branch and 1 tablet in the evening. hyoscyamine 2022-[id number] 2 Univers sulfate 1-30 tablets ity of (LEVSIN/SL) 00:00: under the [place] 0.125 mg 00 tongue Medical sublingual every 6 Branch tablet (six) hours as needed (Abdominal pain or cramping). meloxicam 2022-0 Yes [id number] 15mg Take 1 U nivers 15 mg 1-30 tablet by ity of tablet 00:00: mouth in [place] 00 the Medical morning. Branch acetaminoph 2022-0 Yes [id number] 650mg Take 1 Univers en (TYLENOL 1-30 tablet by ity of ARTHRITIS 00:00: mouth [place] PAIN) 650 00 every 8 Medical mg CR (eight) Branch tablet hours as needed for Pain. Saccharomyc Yes [id number] 250mg Take 1 Univers es 1-30 capsule by ity of boulardii 00:00: [place] (FLORASTOR[place] 00 the Medical 250 mg morning Branch capsule and 1 capsule in the evening. cephALEXin 2022- No 500mg 500 mg, Un li (KEFLEX) 02-21 Oral, ity of capsule 500 03:45: 03:33 ONCE, 1 [place] mg 00 :00 dose, On Medical Fri Branch 02/20/22 at 2145, JOHN
Re ason for Anti-Infec tive: Empiric Therapy for Suspected Infection< br>Empiric Therapy Site: Skin / Soft tissue
Duration of therapy: 5 days cephALEXin 2022- No [id number] 500mg Take 1 Univers (KEFLEX) 02-20 capsule by ity of 500 mg 00:00: 05:59 mouth 4 [place] capsule 00 :00 (four) Medical times Branch daily for 7 days. levothyroxi 0 Yes Method i ne [facility] st (SYNTHROID) 00:00: Hospit a 150 mcg 00 l tablet levothyroxi 2021-0 Yes Method i ne 8-21 st (SYNTHROID) 00:00: Hospit a 150 mcg 00 l tablet levothyroxi 2021-0 Yes Method i ne 8[facility] st (SYNTHROID) 00:00: Hospit a 150 mcg 00 l tablet levothyroxi 2021-0 Yes Method i ne 8-21 st (SYNTHROID) 00:00: Hospit a 150 mcg 00 l tablet levothyroxi 2021-0 Yes Method i ne 8[address] st (SYNTHROID) 00:00: Hospit a 150 mcg [...] tablet 00 by mouth l daily. predniSONE 2022-0 Yes 10mg QD Take 1 [facility] di (DELTASONE) 8-19 tablet (10 st 10 mg 00:00: mg total) Hospita tablet 00 by mouth l daily. predniSONE 2022-0 Yes 10mg QD Take 1 [facility] di (DELTASONE) 8-19 tablet (10 st 10 mg 00:00: mg total) Hospita tablet 00 by mouth l daily. predniSONE 2022-0 Yes 10mg QD Take 1 Metho di (DELTASONE) 8-19 tablet (10 st 10 mg 00:00: mg total) Hospita tablet 00 by mouth l daily. predniSONE 2022-0 Yes 10mg QD Take 1 Metho di [...] Take 1 Uni vers n 20 mg 8- 03-16 tablet by ity of tablet 00:00: 00:00 mouth. [place] 00 :00 Medical Branch gadobenate 2021-0 2021- No [id number] .2mL/kg 0.2 mL/kg, Univers dimeglumine 07-31 Intravenou i ty of (MULTIHANCE 21:45: 21:38 s, ONCE, 1 [place] -20 mL) 00 :00 dose, On Medical injection Afshan Branch 0.2 mL/kg 07/31/21 at 1645, Routine losartan 2021-0 Yes 25mg QD Take 1 Methodi (COZAAR) 25 6-09 tablet (25 st MG tablet 00:00: mg total) Hos jeannie 00 by mouth l daily. losartan 2022-0 Yes 25mg QD Take 1 Methodi (COZAAR) 25 6-09 tablet (25 st MG tablet 00:00: mg total) Hos jeannie 00 by mouth l daily. losartan 2022-0 Yes 25mg QD Take 1 Methodi (COZAAR) 25 6-09 tablet (25 st MG tablet 00:00: mg total) Hos jeannie 00 by mouth l daily. losartan 2022-0 Yes 25mg QD Take 1 Methodi (COZAAR) 25 6-09 tablet (25 st MG tablet 00:00: mg total) Hos jeannie 00 by mouth l daily. losartan Yes 25mg QD Take 1 Methodi (COZAAR) 25 6-09 tablet (25 st MG tablet 00:00: mg total) Hos jeannie 00 by mouth l daily. losartan Yes 25mg QD Take 1 Methodi (COZAAR) 25 6-09 tablet (25 st MG tablet 00:00: mg total) Hos jeannie 00 by mouth l daily. losartan 25 Yes 25mg Take 1 Univ ers mg tablet 07-17 tablet by ity o f 00:00: mouth. [address] Branch barium 2021- No [id number] 700mg 700 mg, Un li sulfate 06-11 Oral, ity of (E-Z DISK) 16:45: 15:39 ONCE, 1 [facility] as tablet 700 00 :00 dose, On Medic al mg Wed06/11/21 Branch at 1145, Routine barium 2021- No [id number] 680g 680 g, Univ ers sulfate 06-11 [...] Until Discontinu ed, Routine sulfur 2021- No [id number] 5mL 5 mL, Unive rs hexafluorid 04-07 Intravenou i ty of e microsphr 21:45: 21:45 s, ONCE, 1 [place] (LUMASON) 00 :00 dose, On Medica l injection 5 Wed Branch mL 04/07/21 at 1545, Routine
count team member approving Restricted medication : VICIK TELLO aspirin 81 Yes 81mg Take 81 mg U nivers mg chewable 2-28 by mouth ity of tablet 18:09: daily. Medical Branch rosuvastati Yes 5mg Take 5 mg U nivers n 5 mg 2-28 by mouth ity of tablet 18:09: daily. Medical Branch Fluticasone Yes 1{puff} Inhale 1 Univers -Salmeterol 2-28 Puff every it y of (ADVAIR 18:09: 12 [place] DISKUS) (twelve) Medical 100-50 hours. [...] 100-50 hours. Branch mcg/dose inhalation disk ibandronate 2022-0 Yes 150mg Take 150 U nivers 150 [...] tablet by ity of 18:09: mouth as [place] [id number] needed. Medical Branch aspirin 81 Yes 81mg [...] 2-28 mouth ity of no.63/iron/ 18:09: daily. [facility] folic 07 Medical (M-VIT Branch ORAL) [...] of tablet 18:09: daily. Medical Branch Fluticasone 2022-0 Yes 1{puff} Inhale 1 Univers -Salmeterol 2-28 [...] mouth as [place] 07 needed. Medical Branch atorvastati 2021- No 10mg Take 10 mg Univers n 10 mg 04-07 by mouth ity of tablet 17:00: 00:00 at [place] 18 :00 bedtime. Medical Branch nitrofurant 2021- No 100mg Take 100 Univers oin 100 mg 04-07- mg by ity of capsule 17:00: 00:00 mouth [place] 18 :00 daily. Medical Branch enoxaparin Yes 40mg 40 mg, Unive rs (LOVENOX) - Subcutaneo ity of injection 15:00: [place], DAILY, [place] 40 mg 00 First dose Medical on [facility] 04/07/21 at 0900, Until Discontinu ed, Routine rosuvastati 2021-0 Yes 5mg 5 mg, Unive rs n (CRESTOR) 04-07 Oral, ity of tablet 5 mg 15:00: DAILY, [place] 00 First dose Medical on [facility] 04/07/21 at 0900, Until Discontinu ed, Routine aspirin 2021-0 Yes 81mg 81 mg, Univers chewable 04-07 Oral, ity of tablet 81 15:00: DAILY, [place] mg 00 First dose Medical on [facility] 04/07/21 at 0900, Until Discontinu ed, Routine Fluticasone 2021-0 Yes 1{puff} 1 Puff, Univers -Salmeterol 04-07 Inhalation it y of (ADVAIR) 14:00: , Q12H, [place] 100-50 00 First dose Medical mcg/dose on [facility] inhalation 04/07/21 at disk 1 Puff 0800, Until Discontinu ed, Routine benzonatate 0 Yes 100mg 100 mg, Un li (TESSALON 04-07 Oral, Q8H, ity of PERLES) 06:45: First dose [place] capsule 100 00 on [facility] Medica l mg 04/07/21 at Branch 0045, Until Discontinu ed, Routine codeine-gua 0 Yes 5mL 5 mL, Unive rs ifenesin 04-07 Oral, ity of (ROBITUSSIN 06:38: Q6HPRN, [facility] AC) 10-100 28 Starting Medic al mg/5 mL on [facility] oral 04/07/21 at solution 5 0038, mL Until Discontinu ed, Routine, Cough nitroglycer 2021-0 Yes .4mg 0.4 mg, Uni vers in 04-07 Sublingual ity of (NITROSTAT) 04:46: , Q5MIN [facility] as sublingual 32 PRN, Medical tablet 0.4 Starting Branc h mg on [place] 04/06/21 at 2246, Until Discontinu ed, Routine, Chest pain ondansetron 2021-0 Yes 4mg 4 mg, Slow Univers (ZOFRAN 04-07 IV Push, ity of (PF)) 04:46: Q6HPRN, [place] injection 4 14 Starting Medi kj mg on [facility] 04/06/21 at 2246, Until Discontinu ed, Routine, Nausea and Vomiting (N/V) ibuprofen 2021-0 Yes 200mg 200 mg, Univ ers (MOTRIN IB) 04-07 Oral, ity of tablet 200 04:46: Q6HPRN, [place] mg 04 Starting Medical on [facility] 04/06/21 at 2246, Until Discontinu ed, Routine, Pain (scale 1-3) bisacodyL 2021-0 Yes 5mg 5 mg, Univers (DULCOLAX) 04-07 Oral, ity of tablet 5 mg 04:44: QDAILYPRN, [place] 18 Starting Medical on [facility] 04/06/21 at 2244, Until Discontinu ed, Routine, Constipati on ondansetron 2021-0 202- No 4mg 4 mg, Slow Univers (ZOFRAN 04-07 IV Push, ity of (PF)) 02:00: 00:55 ONCE, 1 [place] injection 4 00 :00 dose, On Medi kj mg [facility] 04/06/21 at 2000, JOHN aspirin 0 2021- No 325mg 325 mg, Unive rs tablet 325 04-07 Oral, ity of mg 01:45: 00:53 ONCE, 1 [place] 00 :00 dose, On Medical [facility] 04/06/21 at 1945, JOHN nitroglycer 2021-[id number] 1 Univers in 0.4 mg 2-28 tablet ity of sublingual 00:00: under the [place] tablet 00 tongue Medical every 5 Branch (five) minutes as needed for Chest pain. nitroglycer 2021-[id number] 1 Univers in 0.4 mg 2-28 tablet ity of sublingual 00:00: under the [place] tablet 00 tongue Medical every 5 Branch (five) minutes as needed for Chest pain. nitroglycer 202-[id number] 1 Univers in 0.4 mg 2-28 tablet ity of sublingual 00:00: under the [place] tablet 00 tongue Medical every 5 Branch (five) minutes as needed for Chest pain. nitroglycer 2021-[id number] 1 Univers in 0.4 mg 2-28 tablet ity of sublingual 00:00: under the [place] tablet 00 tongue Medical every 5 Branch (five) minutes as needed for Chest pain. nitroglycer 2-[id number] 1 Univers in 0.4 mg 2-28 tablet ity of sublingual 00:00: under the [place] tablet 00 tongue Medical every 5 Branch (five) minutes as needed for Chest pain. nitroglycer 2-[id number] 1 Univers in 0.4 mg 2-28 tablet ity of sublingual 00:00: under the [place] tablet 00 tongue Medical every 5 Branch (five) minutes as needed for Chest pain. nitroglycer 2021-[id number] 1 Univers in 0.4 mg 2-28 tablet ity of sublingual 00:00: under the [place] tablet 00 tongue Medical every 5 Branch (five) minutes as needed for Chest pain. nitroglycer 2021-[id number] 1 Univers in 0.4 mg 2-28 tablet ity of sublingual 00:00: under the [place] tablet 00 tongue Medical every 5 Branch (five) minutes as needed for Chest pain. nitroglycer 2021-[id number] 1 Univers in 0.4 mg 2-28 tablet ity of sublingual 00:00: under the [place] tablet 00 tongue Medical every 5 Branch (five) minutes as needed for Chest pain. nitroglycer 2021-[id number] 1 Univers in 0.4 mg 2-28 tablet ity of sublingual 00:00: under the [place] tablet 00 tongue Medical every 5 Branch (five) minutes as needed for Chest pain. docusate 2021-0 2021- No [id number] 100mg Take 1 U nivers 100 mg -05 05- capsule by ity of capsule 00:00: 04:59 mouth [place] 00 :00 daily for Medical 30 days. Branch docusate 2021-0 2021- No [id number] 100mg Take 1 U nivers 100 mg 2-05 05- capsule by ity of capsule 00:00: 04:59 mouth [place] 00 :00 daily for Medical 30 days. Branch benzonatate 2021-0 2021- No [id number] 100mg Take 1 Univers 100 mg -05 05-08 capsule by ity of capsule 00:00: 05:59 mouth [place] 00 :00 every 8 Medical (eight) Branch hours for 7 days. benzonatate 2021-0 2021- No [id number] 100mg Take 1 Univers 100 mg 04-07 03-08 capsule by ity of capsule 00:00: 05:59 mouth [place] 00 :00 every 8 Medical (eight) Branch hours for 7 days. Premarin Premarin No Premarin 0.625 MG/GM 0.625 MG/GM 223 0.625 00:00: MG/GM 00 Nitrofurant Nitrofurant 0 2020- No [place] 1 capsule Common oin Monohyd oin Monohyd 09-03 10-25 [place] at bedtime Spirit Macro Macro 00:00: 00:00 with food - [facility] 00 :00 [facility] estradiol 2020-0 Yes [id number] 2g Insert 2 g Univers (ESTRACE) 3-12 into ity of 0.01 % (0.1 00:00: vagina [place] mg/gram) 00 weekly. Medical vaginal Branch cream estradiol 2020-0 Yes [id number] 2g Insert 2 g Univers (ESTRACE) 3-12 into ity of 0.01 % (0.1 00:00: vagina [place] mg/gram) 00 weekly. Medical vaginal Branch cream estradiol 2020-0 Yes [id number] 2g Insert 2 g Univers (ESTRACE) 3-12 into ity of 0.01 % (0.1 00:00: vagina [place] mg/gram) 00 weekly. Medical vaginal Branch cream estradiol 2020-0 Yes [id number] 2g Insert 2 g Univers (ESTRACE) 3-12 into ity of 0.01 % (0.1 00:00: vagina [place] mg/gram) 00 weekly. Medical vaginal Branch cream estradiol 2020-0 Yes [id number] 2g Insert 2 g Univers (ESTRACE) 3-12 into ity of 0.01 % (0.1 00:00: vagina [place] mg/gram) 00 weekly. Medical vaginal Branch cream estradiol 2020-0 Yes [id number] 2g Insert 2 g Univers (ESTRACE) 3-12 into ity of 0.01 % (0.1 00:00: vagina [place] mg/gram) 00 weekly. Medical vaginal Branch cream estradiol 2020-0 Yes [id number] 2g Insert 2 g Univers (ESTRACE) 3-12 into ity of 0.01 % (0.1 00:00: vagina [place] mg/gram) 00 weekly. Medical vaginal Branch cream estradiol 2020-0 Yes [id number] 2g Insert 2 g Univers (ESTRACE) 3-12 into ity of 0.01 % (0.1 00:00: vagina [place] mg/gram) 00 weekly. Medical vaginal Branch cream estradiol 2020-0 Yes [id number] 2g Insert 2 g Univers (ESTRACE) 3-12 into ity of 0.01 % (0.1 00:00: vagina [place] mg/gram) 00 weekly. Medical vaginal Branch cream estradiol 2020-0 Yes [id number] 2g Insert 2 g Univers (ESTRACE) 3-12 into ity of 0.01 % (0.1 00:00: vagina [place] mg/gram) 00 weekly. Medical vaginal Branch cream estradiol 2020-0 Yes [id number] 2g Insert 2 g Univers (ESTRACE) 3-12 into ity of 0.01 % (0.1 00:00: vagina [place] mg/gram) 00 weekly. Medical vaginal Branch cream estradiol 2020-0 Yes [id number] 2g Insert 2 g Univers (ESTRACE) 3-12 into ity of 0.01 % (0.1 00:00: vagina [place] mg/gram) 00 weekly. Medical vaginal Branch cream estradiol 2020-0 Yes [id number] 2g Insert 2 g Univers (ESTRACE) 3-12 into ity of 0.01 % (0.1 00:00: vagina [place] mg/gram) 00 weekly. Medical vaginal Branch cream estradiol 2020-0 Yes [id number] 2g Insert 2 g Univers (ESTRACE) 3-12 into ity of 0.01 % (0.1 00:00: vagina [place] mg/gram) 00 weekly. Medical vaginal Branch cream trospium 20 2020-0 2020- No [id number] 20mg Take 1 Univers mg tablet 04-19- tablet by ity of 00:00: 04:59 mouth 2 00 :00 (two) Medical times Branch daily for 90 days. trospium 20 2020-0 2020- No [id number] 20mg Take 1 Univers mg tablet 04-19- tablet by ity of 00:00: 04:59 mouth 2 00 :00 (two) Medical times Branch daily for 90 days. trospium 20 2020-0 2020- No [id number] 20mg Take 1 Univers mg tablet 04-19- tablet by ity of 00:00: 04:59 mouth 2 [place] 00 :00 (two) Medical times Branch daily for 90 days. trospium 20 2020-0 2020- No [id number] 20mg Take 1 Univers mg tablet 04-19- tablet by ity of 00:00: 04:59 mouth 2 [place] 00 :00 (two) Medical times Branch daily for 90 days. cephALEXin 2020-0 Yes [id number] Pt is to Univers 250 mg 1-28 start ity of capsule 00:00: taking [place] 00 medication Medical after Branch completion of first dose of antbiotics . Take by mouth daily cephALEXin 2020-0 Yes [id number] Pt is to Univers 250 mg 1-28 start ity of capsule 00:00: taking [place] 00 medication Medical after Branch completion of first dose of antbiotics . Take by mouth daily cephALEXin 2020-0 Yes [id number] Pt is to Univers 250 mg 1-28 start ity of capsule 00:00: taking [place] 00 medication Medical after Branch completion of first dose of antbiotics . Take by mouth daily cephALEXin 2020-0 Yes [id number] Pt is to Univers 250 mg 1-28 start ity of capsule 00:00: taking [place] 00 medication Medical after Branch completion of first dose of antbiotics . Take by mouth daily cephALEXin 2020-0 Yes [id number] Pt is to Univers 250 mg 1-28 start ity of capsule 00:00: taking [place] 00 medication Medical after Branch completion of first dose of antbiotics . Take by mouth daily cephALEXin 2020-0 Yes [id number] Pt is to Univers 250 mg 1-28 start ity of capsule 00:00: taking [place] 00 medication Medical after Branch completion of first dose of antbiotics . Take by mouth daily cephALEXin 2020-0 Yes [id number] Pt is to Univers 250 mg 1-28 start ity of capsule 00:00: taking [place] 00 medication Medical after Branch completion of first dose of antbiotics . Take by mouth daily cephALEXin 2020-0 Yes [id number] Pt is to Univers 250 mg 1-28 start ity of capsule 00:00: taking [place] 00 medication Medical after Branch completion of first dose of antbiotics . Take by mouth daily cephALEXin 2020-0 Yes [id number] Pt is to Univers 250 mg -28 start ity of capsule 00:00: taking [place] 00 medication Medical after Branch completion of first dose of antbiotics . Take by mouth daily cephALEXin 2020-0 Yes [id number] Pt is to [facility] 250 mg -28 start ity of capsule 00:00: taking [place] 00 medication Medical after Branch completion of first dose of antbiotics . Take by mouth daily cephALEXin 2020-0 Yes [id number] Pt is to [facility] 250 mg -28 start ity of capsule 00:00: taking [place] 00 medication Medical after Branch completion of first dose of antbiotics . Take by mouth daily cephALEXin 2020-0 2021- No [id number] Pt is to [facility] 250 mg -28 04-07 start ity of capsule 00:00: 00:00 taking [place] 00 :00 medication Medical after Branch completion of first dose of antbiotics . Take by mouth daily atorvastati Yes 10mg Take 10 mg [facility] n 10 mg - by mouth ity of tablet 20:39: at [place] [address] bedtime. Medical Branch Fluticasone 0 Yes 1{puff} [...] [place] 26 every Medical month. Branch Dexlansopra 2019- Yes Take by Uni vers zole 1-27 [...] as [place] 26 needed. Medical Branch atorvastati 2020-0 Yes 10mg [...] as [place] 26 needed. Medical Branch atorvastati 2020-0 Yes 10mg [...] 2019-0 Yes Take by Uni vers zole 03-06 mouth. ity of (DEXILANT) 20:39: [place] 60 mg Medical capsule Branch multivit-mi 0 Yes Take by Uni vers ns 03-06 mouth ity of no.63/iron/ 20:39: [place] 26 Medical (M-VIT Branch ORAL) levothyroxi 2019-0 Yes 200ug Take 200 U nivers ne 200 mcg 1-27 mcg by ity of tablet 20:39: mouth [place] 26 every Medical morning. Branch levothyroxi 2019-0 Yes 25ug Take 25 Uni vers ne 50 mcg 1-27 mcg by ity of tablet 20:39: mouth [place] every Medical morning. Branch For total of 225 albuterol 0 Yes 1{puff} Inhale 1 U nivers sulfate 03-06 Puff as ity of (PROAIR HFA 20:39: needed. [facility] as INHALE) 26 Medical Branch IBUPROFEN 2019-0 Yes 1{tbl} Take 1 Univ ers ORAL 03-06 tablet by ity of 20:39: mouth as [place] 26 needed. Medical Branch flu vaccine 0 2020- No .5mL 0.5 mL, Un li 66 yrs and 03-06 Intramuscu it y of up (FLUZONE 19:45: 20:09 lar, ONCE, [place] HIGH-DOSE 00 :00 1 dose, Medical Wed Branch (PF)) 03/06/19 at syringe 0.5 1345, mL Routine cefTRIAXone 2019-0 Yes 1000mg 1,000 mg, Univers (ROCEPHIN) 03-06 IV ity of 1,000 mg in 17:08: Piggyback, [place] NaCl 0.9% 00 Q24H ABX, Medic al (NS) 50 mL First dose [facility] MINI-BAG on Wed03/06/19 at 1115, Until Discontinu [...] MCG tablet mouth daily. vitamin 2020-0 Yes [id number] 1000ug Take 1 Un li B-12 1,000 1-27 tablet by ity of mcg tablet 00:00: mouth [place] 00 daily. Medical Branch lactobacill 2020-0 Yes [id number] 1{tbl} Take 1 [facility] us 1-27 tablet by ity of acidophilus 00:00: mouth 2 [facility] as 25 million 00 (two) Medical cell -100 times Branch mg captab daily. vitamin 2020-0 Yes [id number] 1000ug Take 1 Un li B-12 1,000 1-27 tablet by ity of mcg tablet 00:00: mouth [place] 00 daily. Medical Branch lactobacill 2020-0 Yes [id number] 1{tbl} Take 1 [facility] us 1-27 tablet by ity of acidophilus 00:00: mouth 2 [facility] as 25 million 00 (two) Medical cell -100 times Branch mg captab daily. vitamin 2020-0 Yes [id number] 1000ug Take 1 Un li B-12 1,000 1-27 tablet by ity of mcg tablet 00:00: mouth [place] 00 daily. Medical Branch lactobacill 2020-0 Yes [id number] 1{tbl} Take 1 [facility] us 1-27 tablet by ity of acidophilus 00:00: mouth 2 [facility] as 25 million 00 (two) Medical cell -100 times Branch mg captab daily. vitamin 2020-0 Yes [id number] 1000ug Take 1 Un li B-12 1,000 1-27 tablet by ity of mcg tablet 00:00: mouth [place] 00 daily. Medical Branch lactobacill 2020-0 Yes [id number] 1{tbl} Take 1 [facility] us 1-27 tablet by ity of acidophilus 00:00: mouth 2 [facility] as 25 million 00 (two) Medical cell -100 times Branch mg captab daily. vitamin 2020-0 Yes [id number] 1000ug Take 1 Un li B-12 1,000 1-27 tablet by ity of mcg tablet 00:00: mouth [place] 00 daily. Medical Branch lactobacill 2020-0 Yes [id number] 1{tbl} Take 1 [facility] us 1-27 tablet by ity of acidophilus 00:00: mouth 2 [facility] as 25 million 00 (two) Medical cell -100 times Branch mg captab daily. vitamin 2020-0 Yes [id number] 1000ug Take 1 Un li B-12 1,000 1-27 tablet by ity of mcg tablet 00:00: mouth [place] 00 daily. Medical Branch lactobacill 2020-0 Yes [id number] 1{tbl} Take 1 [facility] us 1-27 tablet by ity of acidophilus 00:00: mouth 2 [facility] as 25 million 00 (two) Medical cell -100 times Branch mg captab daily. vitamin 2020-0 Yes [id number] 1000ug Take 1 Un li B-12 1,000 1-27 tablet by ity of mcg tablet 00:00: mouth [place] 00 daily. Medical Branch lactobacill 2020-0 Yes [id number] 1{tbl} Take 1 [facility] us 1-27 tablet by ity of acidophilus 00:00: mouth 2 [facility] as 25 million 00 (two) Medical cell -100 times Branch mg captab daily. vitamin 2020-0 Yes [id number] 1000ug Take 1 Un li B-12 1,000 1-27 tablet by ity of mcg tablet 00:00: mouth [place] 00 daily. Medical Branch lactobacill 2020-0 Yes [id number] 1{tbl} Take 1 [facility] us 1-27 tablet by ity of acidophilus 00:00: mouth 2 [facility] as 25 million 00 (two) Medical cell -100 times Branch mg captab daily. vitamin 2020-0 Yes [id number] 1000ug Take 1 Un li B-12 1,000 1-27 tablet by ity of mcg tablet 00:00: mouth [place] 00 daily. Medical Branch lactobacill 2020-0 Yes [id number] 1{tbl} Take 1 [facility] us 1-27 tablet by ity of acidophilus 00:00: mouth 2 [facility] as 25 million 00 (two) Medical cell -100 times Branch mg captab daily. vitamin 2020-0 Yes [id number] 1000ug Take 1 Un li B-12 1,000 1-27 tablet by ity of mcg tablet 00:00: mouth [place] 00 daily. Medical Branch lactobacill 2020-0 Yes [id number] 1{tbl} Take 1 [facility] us 1-27 tablet by ity of acidophilus 00:00: mouth 2 [facility] as 25 million 00 (two) Medical cell -100 times Branch mg captab daily. vitamin 2020-0 Yes [id number] 1000ug Take 1 Un li B-12 1,000 1-27 tablet by ity of mcg tablet 00:00: mouth [place] 00 daily. Medical Branch lactobacill 2020-0 Yes [id number] 1{tbl} Take 1 [facility] us 1-27 tablet by ity of acidophilus 00:00: mouth 2 [facility] as 25 million 00 (two) Medical cell -100 times Branch mg captab daily. vitamin 2020-0 Yes [id number] 1000ug Take 1 Un li B-12 1,000 1-27 tablet by ity of mcg tablet 00:00: mouth [place] 00 daily. Medical Branch lactobacill 2020-0 Yes [id number] 1{tbl} Take 1 [facility] us 1-27 tablet by ity of acidophilus 00:00: mouth 2 [facility] as 25 million 00 (two) Medical cell -100 times Branch mg captab daily. vitamin 2020-0 Yes [id number] 1000ug Take 1 Un li B-12 1,000 1-27 tablet by ity of mcg tablet 00:00: mouth [place] 00 daily. Medical Branch lactobacill 2020-0 Yes [id number] 1{tbl} Take 1 [facility] us 1-27 tablet by ity of acidophilus 00:00: mouth 2 [facility] as 25 million 00 (two) Medical cell -100 times Branch mg captab daily. vitamin 2020-0 Yes [id number] 1000ug Take 1 Un il B-12 1,000 1-27 tablet by ity of mcg tablet 00:00: mouth [place] 00 daily. Medical Branch lactobacill 2020-0 Yes [id number] 1{tbl} Take 1 [facility] us 1-27 tablet by ity of acidophilus 00:00: mouth 2 [facility] as 25 million 00 (two) Medical cell -100 times Branch mg captab daily. vitamin 2020-0 Yes [id number] 1000ug Take 1 Un li B-12 1,000 1-27 tablet by ity of mcg tablet 00:00: mouth [place] 00 daily. Medical Branch lactobacill 2020-0 Yes [id number] 1{tbl} Take 1 [facility] us 1-27 tablet by ity of acidophilus 00:00: mouth 2 [facility] as 25 million 00 (two) Medical cell -100 times Branch mg captab daily. vitamin 2020-0 Yes [id number] 1000ug Take 1 Un li B-12 1,000 1-27 tablet by ity of mcg tablet 00:00: mouth [place] 00 daily. Medical Branch lactobacill 2020-0 Yes [id number] 1{tbl} Take 1 [facility] us 1-27 tablet by ity of acidophilus 00:00: mouth 2 [facility] as 25 million 00 (two) Medical cell -100 times Branch mg captab daily. vitamin 2020-0 Yes [id number] 1000ug Take 1 Un li B-12 1,000 1-27 tablet by ity of mcg tablet 00:00: mouth [place] 00 daily. Medical Branch lactobacill 2020-0 Yes [id number] 1{tbl} Take 1 [facility] us 1-27 tablet by ity of acidophilus 00:00: mouth 2 [facility] as 25 million 00 (two) Medical cell -100 times Branch mg captab daily. vitamin 2020-0 Yes [id number] 1000ug Take 1 Un li B-12 1,000 1-27 tablet by ity of mcg tablet 00:00: mouth [place] 00 daily. Medical Branch lactobacill 2020-0 Yes [id number] 1{tbl} Take 1 [facility] us 1-27 tablet by ity of acidophilus 00:00: mouth 2 [facility] as 25 million 00 (two) Medical cell -100 times Branch mg captab daily. vitamin 2020-0 Yes [id number] 1000ug Take 1 Un li B-12 1,000 1-27 tablet by ity of mcg tablet 00:00: mouth [place] 00 daily. Medical Branch lactobacill 2020-0 Yes [id number] 1{tbl} Take 1 [facility] us 1-27 tablet by ity of acidophilus 00:00: mouth 2 [facility] as 25 million 00 (two) Medical cell -100 times Branch mg captab daily. vitamin 2020-0 Yes [id number] 1000ug Take 1 Un li B-12 1,000 1-27 tablet by ity of mcg tablet 00:00: mouth [place] 00 daily. Medical Branch lactobacill 2020-0 Yes [id number] 1{tbl} Take 1 [facility] us 1-27 tablet by ity of acidophilus 00:00: mouth 2 [facility] as 25 million 00 (two) Medical cell -100 times Branch mg captab daily. vitamin 2020-0 Yes [id number] 1000ug Take 1 Un li B-12 1,000 1-27 tablet by ity of mcg tablet 00:00: mouth [place] 00 daily. Medical Branch lactobacill 2020-0 Yes [id number] 1{tbl} Take 1 [facility] us 1-27 tablet by ity of acidophilus 00:00: mouth 2 [facility] as 25 million 00 (two) Medical cell -100 times Branch mg captab daily. cefdinir 2020-0 2020- No [id number] 600mg Take 2 U nivers 300 mg - 02- capsules ity of capsule 00:00: 05:59 by mouth [place] 00 :00 daily for Medical 5 days. Branch cefdinir 2020-0 2020- No [id number] 600mg Take 2 U nivers 300 mg - 02-02 capsules ity of capsule 00:00: 05:59 by mouth [place] 00 :00 daily for Medical 5 days. Branch cefdinir 2020-0 2020- No [id number] 600mg Take 2 U nivers 300 mg 03-06 capsules ity of capsule 00:00: 05:59 by mouth [place] 00 :00 daily for Medical 5 days. [place] cefTRIAXone 2019- No 1000mg 1,000 mg, Univers (ROCEPHIN) 03-05 IV ity of 1,000 mg in 15:00: 22:50 Piggyback, [place] NaCl 0.9% 00 :39 Q12H ABX, Medic al (NS) 50 mL First dose [facility] MINI-BAG on [place] 03/05/19 at 0900, Until Discontinu ed, 50 mL
R margoth for Anti-Infec tive: Documented Infection< br>Documen [place] Infection Site: Urine<br&g t;Duration of Therapy: 7 days acetaminoph Yes 650mg 650 mg, Un li en 03-05 Oral, ity of (TYLENOL) 00:31: Q4HPRN, [place] tablet 650 06 Starting Medic al mg [facility] 03/04/19 at 1831, Until Discontinu ed, Routine, Pain (scale 1-3), Temp > 38.5 C doxycycline 2019- No 100mg 100 mg, IV Univers (VIBRAMYCIN 03-04 Piggyback, i ty of ) 100 mg in 21:00: 22:42 Q12H ABX, [place] NaCl 0.9% 00 :07 First dose Medi kj (NS) 100 mL on [facility] MINI-BAG 03/04/19 at 1500, Until Discontinu ed, 100 mL
R margoth for Anti-Infec tive: Documented Infection< br>Documen [place] Infection Site: Respirator y
Durat ion of Therapy: 7 days levothyroxi Yes 25ug 25 mcg, Uni vers ne 1-25 Oral, ity of (SYNTHROID) 12:00: QAM-0600, [place] tablet 25 00 First dose Medi kj mcg on [facility] 03/04/19 at 0600, Until Discontinu ed, Routine levothyroxi Yes 200ug 200 mcg, U nivers ne -25 Oral, ity of (SYNTHROID) 12:00: QAM-0600, [place] tablet 200 00 First dose Med ical mcg on Sat Branch 03/04/19 at 0600, Until Discontinu ed, Routine doxycycline 2019-0 2020- No 100mg 100 mg, IV Univers (VIBRAMYCIN 03-04 Piggyback, i ty of ) 100 mg in 08:30: 17:54 Q12H ABX, [place] NaCl 0.9% 00 :03 First dose Medi kj (NS) 100 mL on [facility] Branch MINI-BAG 03/04/19 at 0230, Until Discontinu ed, 100 mL
R margoth for Anti-Infec tive: Documented Infection< br>Documen [place] Infection Site: Respirator y
Durat ion of Therapy: 7 days NaCl 0.9% 2019-0 2020- No 1000mL at 100 Uni vers (NS) IV 03-04-26 mL/hr, IV ity of infusion 07:45: 23:57 Infusion, [facility] as 1,000 mL 00 :05 CONTINUOUS Medic al , Starting Branch [facility] 03/04/19 at 0145, Until 03/05/19 at 1757, Routine iohexol 2019-0 2020- No 120mL 120 mL, Unive rs (OMNIPAQUE 03-04 Intravenou it y of 350 07:30: 07:19 s, ONCE, 1 [place] BULK-100 00 :00 dose, Sat Medica l mL) 03/04/19 at Branch injection 0130, 120 mL Routine NaCl 0.9% 2020-0 2020- No 2000mL at 999 Uni vers (NS) bolus 03-04-25 mL/hr, ity of infusion 07:30: 07:30 2,000 mL, [facility] as 2,000 mL 00 :00 IV Medical Piggyback, Branch ONCE, 1 dose, 03/04/19 at 0130, STAT atorvastati 2019-0 Yes 10mg Take 10 mg [facility] n 10 mg -25 by mouth ity of tablet 07:23: at [place] 47 bedtime. Medical Branch Fluticasone 2020-0 Yes 1{puff} Inhale 1 [facility] -Salmeterol 1-25 Puff every it y of (ADVAIR 07:23: 12 [place] DISKUS) 47 (twelve) Medical 100-50 hours. Branch mcg/dose inhalation disk ibandronate 2019-0 Yes 150mg Take 150 U nivers 150 mg 1-25 mg by ity of tablet 07:23: mouth once [place] [address] every Medical month. Branch Dexlansopra 2020-0 Yes Take by Uni vers zole 1-25 mouth. ity of (DEXILANT) 07:23: [place] 60 mg 47 Medical capsule Branch multivit-mi 2019-0 Yes Take by Uni vers ns 1-25 mouth ity of no.63/iron/ 07:23: daily. [place] Medical (M-VIT Branch ORAL) levothyroxi 2020-0 Yes 200ug Take 200 U nivers ne 200 mcg 1-25 mcg by ity of tablet 07:23: mouth [place] [address] every Medical morning. Branch levothyroxi 2020-0 Yes 25ug Take 25 Uni vers ne 50 mcg 1-25 mcg by ity of tablet 07:23: mouth [place] [address] every Medical morning. Branch For total of 225 albuterol 2020-0 Yes 1{puff} Inhale 1 U nivers sulfate 1-25 Puff as ity of (PROAIR HFA 07:23: needed. [facility] as INHALE) Medical Branch IBUPROFEN 2020-0 Yes 1{tbl} Take 1 Univ ers ORAL 1-25 tablet by ity of 07:23: mouth as [place] [address] needed. Medical Branch atorvastati 2020-0 Yes 10mg Take 10 mg [facility] n 10 mg 1-25 by mouth ity of tablet 07:23: at [place] [address] bedtime. Medical Branch Fluticasone 2020-0 Yes 1{puff} Inhale 1 [facility] -Salmeterol 1-25 Puff every it y of (ADVAIR 07:23: 12 [place] DISKUS) (twelve) Medical 100-50 hours. Branch mcg/dose inhalation disk ibandronate 2020-0 Yes 150mg Take 150 U nivers 150 mg 1-25 mg by ity of tablet 07:23: mouth once [place] [address] every Medical month. Branch Dexlansopra 2020-0 Yes Take by Uni vers zole 1-25 mouth. ity of (DEXILANT) 07:23: [place] 60 mg 47 Medical capsule Branch multivit-mi 2019-0 Yes Take by Uni vers ns 1-25 mouth ity of no.63/iron/ 07:23: daily. [place] 47 Medical (M-VIT Branch ORAL) levothyroxi 2020-0 Yes 200ug Take 200 U nivers ne 200 mcg 1-25 mcg by ity of tablet 07:23: mouth [place] [address] every Medical morning. Branch levothyroxi 2019-0 Yes 25ug Take 25 Uni vers ne 50 mcg 1-25 mcg by ity of tablet 07:23: mouth [place] [address] every Medical morning. [place] For total of 225 albuterol 2019-0 Yes 1{puff} Inhale 1 U nivers sulfate 1-25 Puff as ity of (PROAIR HFA 07:23: needed. [facility] as INHALE) 47 Medical Branch IBUPROFEN 2019-0 Yes 1{tbl} Take 1 Univ ers ORAL 1-25 tablet by ity of 07:23: mouth as [place] [address] needed. [facility] Branch lactobacill 2019-0 Yes 1{tbl} 1 tablet, Univers us 1-25 Oral, BID, ity of acidophilus 05:30: First dose [place] (ACIDOPHILL 00 on Wed Medica l US) 03/03/19 at [place] million 2330, cell -100 Until mg captab 1 Discontinu tablet ed, Routine ondansetron 0 Yes 4mg 4 mg, Slow Univers (ZOFRAN 1-25 IV Push, ity of (PF)) 05:23: Q6HPRN, [place] injection 4 27 Starting Medi kj mg [facility] 03/03/19 at 2323, Until Discontinu ed, Routine, Nausea and Vomiting (N/V) NaCl 0.9% 0 2020- No 1000mL at 999 Uni vers (NS) bolus 03-04-25 mL/hr, ity of infusion 03:15: 03:54 1,000 mL, [facility] as 1,000 mL 00 :[facility], Wed03/03/19 at 2115, STAT cefTRIAXone 2019-0 2020- No 1000mg 1,000 mg, Univers (ROCEPHIN) 03-04-25 IV ity of 1,000 mg in 03:00: 02:53 [place], [place] NaCl 0.9% 00 :00 ONCE, 1 Medical (NS) 50 mL dose, Wed Bran ch MINI-BAG 03/03/19 at 2100, 50 mL
Reas on for Anti-Infec tive: Documented Infection< br>Documen theodora Infection Site: Urine
D uration of Therapy: 7 days ibuprofen 2020-0 2020- No 600mg 600 mg, Uni vers (IBU) 1-25 01-25 Oral, ity of tablet 600 02:45: 01:34 ONCE, 1 [facility] as mg 00 :00 dose, Fri Medical 03/03/19 at Branch 2044, JOHN levothyroxi 2020-0 Yes 25ug Take 25 Uni vers ne 50 mcg 1-24 mcg by ity of tablet 16:30: mouth [place] 10 every Medical morning. [place] For total of 225 IBUPROFEN 2019-0 Yes 1{tbl} Take 1 Univ ers ORAL 1-24 tablet by ity of 16:30: mouth as [place] 10 needed. [facility] levothyroxi 2019-0 Yes 25ug Take 25 Uni vers ne 50 mcg 1-24 mcg by ity of tablet 16:30: mouth [place] 10 every Medical morning. [place] For total of 225 IBUPROFEN 2019-0 Yes 1{tbl} Take 1 Univ ers ORAL 1-24 tablet by ity of 16:30: mouth as [place] 10 needed. [facility] cyanocobala 2018-02 Yes [id number] 1000ug inject 1 [facility] min 0-01 mL under ity of (VITAMIN 00:00: the skin [place] B-12) 1,000 00 once every Me dical mcg/mL month. Branch injection cyanocobala 2018-02 Yes [id number] 1000ug inject 1 [facility] min 0-01 mL under ity of (VITAMIN 00:00: the skin [place] B-12) 1,000 00 once every Me dical mcg/mL month. Branch injection cyanocobala 2018-02 Yes [id number] 1000ug inject 1 [facility] min 0-01 mL under ity of (VITAMIN 00:00: the skin [place] B-12) 1,000 00 once every Me dical mcg/mL month. Branch injection cyanocobala 2018-02 Yes [id number] 1000ug inject 1 [facility] min 0-01 mL under ity of (VITAMIN 00:00: the skin [place] B-12) 1,000 00 once every Me dical mcg/mL month. Branch injection cyanocobala 2018-02 Yes [id number] 1000ug inject 1 [facility] min 0-01 mL under ity of (VITAMIN 00:00: the skin [place] B-12) 1,000 00 once every Me dical mcg/mL month. Branch injection cyanocobala 2018-02 Yes [id number] 1000ug inject 1 [facility] min 0-01 mL under ity of (VITAMIN 00:00: the skin [place] B-12) 1,000 00 once every Me dical mcg/mL month. Branch injection cyanocobala 2018-02 Yes [id number] 1000ug inject 1 [facility] min 0-01 mL under ity of (VITAMIN 00:00: the skin [place] B-12) 1,000 00 once every Me dical mcg/mL month. Branch injection cyanocobala 2018-02 Yes [id number] 1000ug inject 1 [facility] min 0-01 mL under ity of (VITAMIN 00:00: the skin [place] B-12) 1,000 00 once every Me dical mcg/mL month. Branch injection cyanocobala 2018-02 Yes [id number] 1000ug inject 1 [facility] min 0-01 mL under ity of (VITAMIN 00:00: the skin [place] B-12) 1,000 00 once every Me dical mcg/mL month. Branch injection cyanocobala 2018-02 Yes [id number] 1000ug inject 1 [facility] min 0-01 mL under ity of (VITAMIN 00:00: the skin [place] B-12) 1,000 00 once every Me dical mcg/mL month. Branch injection cyanocobala 2018-02 Yes [id number] 1000ug inject 1 [facility] min 0-01 mL under ity of (VITAMIN 00:00: the skin [place] B-12) 1,000 00 once every Me dical mcg/mL month. Branch injection cyanocobala 2018-02 Yes [id number] 1000ug inject 1 [facility] min 0-01 mL under ity of (VITAMIN 00:00: the skin [place] B-12) 1,000 00 once every Me dical mcg/mL month. Branch injection cyanocobala 2018-02 Yes [id number] 1000ug inject 1 [facility] min 0-01 mL under ity of (VITAMIN 00:00: the skin [place] B-12) 1,000 00 once every Me dical mcg/mL month. Branch injection cyanocobala 2018-02 Yes [id number] 1000ug inject 1 [facility] min 0-01 mL under ity of (VITAMIN 00:00: the skin [place] B-12) 1,000 00 once every Me dical mcg/mL month. Branch injection cyanocobala 2018-02 2020- No [id number] 1000ug inject 1 [facility] min 0-01 01-27 mL under ity of (VITAMIN 00:00: 00:00 [place] B-12) 1,000 00 :00 once every Me dical mcg/mL month. Branch injection cyanocobala 2018-02 2020- No [id number] 1000ug inject 1 [facility] min 0-01 01-27 [...] [facility] as INHALE) 18 Medical Branch IBUPROFEN 2018- Yes 1{tbl} Take 1 Univ ers ORAL [...] Yes 25ug 25 mcg, Uni vers (SUBLIMAZE -18 Slow IV ity of (PF)) 20:33: Push, PRN [place] injection 30 - SEE Medical 25 mcg INSTRUCTIO Branch NS, 1 dose, Starting Wed10/26/18 at 1533, Until Discontinu ed, Routine, For pain scale 1-3, PACU FENTanyl PF 2019-0 Yes 25ug 25 mcg, Uni vers (SUBLIMAZE 18 Slow IV ity of (PF)) 20:33: Push, [place] injection 30 Q5MIN PRN, Medi jk 25 mcg 4 doses, Branch Starting Wed10/26/18 at 1533, Until Discontinu ed, Routine, Pain (scale 7-10), PACU FENTanyl PF 2019-0 Yes 25ug 25 mcg, Uni vers (SUBLIMAZE 10-26 Slow IV ity of (PF)) 20:33: Push, [...] 2018-0 2019- No ONCE INTRA Univers (BRIDION) 10-26 PROCEDURE, ity of injection 20:19: 20:35 Starting [facility] as 00 :59 [facility] Medical 10/26/18 at Branch 1519, Until Wed10/26/18 at 1535, Routine, Intra-op ketorolac 2018-0 2019- No ONCE INTRA U nivers (TORADOL) 10-26 PROCEDURE, ity of injection 20:16: 20:35 Starting [facility] as 00 :59 Wed Medical 10/26/18 at Branch 1516, Until Wed10/26/18 at 1535, Routine, Intra-op ondansetron 2019-0 2019- No ONCE INTRA Univers (ZOFRAN 10-26 PROCEDURE, ity o f (PF)) 20:14: 20:35 Starting [place] injection 00 :59 [facility] Medical 10/26/18 at Branch 1514, Until 10/26/18 at 1535, Routine, Intra-op ePHEDrine 2019- No ONCE INTRA U nivers 25 mg/5 mL 10-26 PROCEDURE, it y of (5 mg/mL) 20:11: 20:35 Starting [facility] as syringe 00 :59 Wed Medical 10/26/18 at Branch 1511, Until 10/26/18 at 1535, Routine, Intra-op bupivacaine Yes PRN, Univer s (preserv 10-26 Starting ity of free) 19:52: Wed [place] (SENSORCAIN 00 10/26/18 at [facility] E MP) 0.25 1452, [place] % (2.5 Until mg/mL) Discontinu injection ed, [...] Take 10 mg Univers n 10 mg -18 by mouth ity of tablet 19:46: at [place] 14 bedtime. Medical Branch Fluticasone Yes 1{puff} Inhale 1 Univers -Salmeterol 18 Puff every it y of (ADVAIR 19:46: 12 [place] DISKUS) 14 (twelve) Medical 100-50 hours. Branch mcg/dose inhalation disk ibandronate 0 Yes 150mg Take 150 U nivers 150 mg 9-18 mg by ity of tablet 19:46: mouth once [place] 14 every Medical month. Branch Dexlansopra Yes Take by Uni vers zole -18 mouth. ity of (DEXILANT) 19:46: [place] 60 mg 14 Medical capsule Branch multivit-mi Yes Take by Uni vers ns -18 mouth ity of no.63/iron/ 19:46: daily. [place] [...] Yes 1{puff} Inhale 1 U nivers sulfate 10-26 Puff as ity of (PROAIR HFA 19:46: needed. [facility] as INHALE) 14 Medical Branch IBUPROFEN Yes 1{tbl} Take 1 Univ ers ORAL -18 tablet by ity of 19:46: mouth as [...] Wed Medical 10/26/18 at Branch 1425, Until 10/26/18 at 1535, OJHN, Intra-op rocuronium 2018- No ONCE INTRA Univers (ZEMURON) 10-26 PROCEDURE, ity of injection 18:47: 20:35 Starting [facility] as 00 :59 [facility] Medical 10/26/18 at Branch 1347, Until 10/26/18 at 1535, Routine, Intra-op propofol 2018- 2019- No ONCE INTRA Un li injection 10-26 PROCEDURE, ity of 18:47: 20:35 Starting [place] 00 :59 Wed Medical 10/26/18 at Branch 1347, Until 10/26/18 at 1535, Routine, Intra-op lidocaine 2019- No ONCE INTRA U nivers 1% 10-26 PROCEDURE, ity of (XYLOCAINE) 18:47: 20:35 Starting [place] 100 mg/10 00 :59 Wed Medical mL (1 %) 10/26/18 at [facility] h injection 1347, Until Wed10/26/18 at 1535, Routine, Intra-op FENTanyl PF 2019- No ONCE INTRA Univers (SUBLIMAZE 10-26 PROCEDURE, it y of (PF)) 18:47: 20:35 Starting [place] injection 00 :59 Wed Medical 10/26/18 at [place] 1347, Until Wed10/26/18 at 1535, Routine, Intra-op dexamethaso 2019- No ONCE INTRA Univers ne 10-26 PROCEDURE, ity of (DECADRON 18:45: 20:35 Starting [facility] as PHOSPHATE) 00 :59 Wed Medical injection 10/26/18 at [facility] 1345, Until Wed10/26/18 at 1535, Routine, Intra-op lactated 2019- No 1000mL at 20 Unive rs ringers IV 10-26 mL/hr, ity of infusion 16:15: 18:42 1,000 mL, [facility] as 1,000 mL 00 :00 IV Medical Infusion, Branch ONCE, 1 dose, Wed10/26/18 at 1115, Routine, DSU Pre-op lactated 2019- No 1000mL at 20 Unive rs ringers IV 10-26-18 mL/hr, ity of infusion 16:15: 16:32 1,000 mL, [facility] as 1,000 mL 00 :00 IV Medical Infusion, Branch ONCE, 1 dose, Wed10/26/18 at 1115, Routine, DSU Pre-op atorvastati 2018- Yes 10mg Take 10 mg Univers n 10 mg 9-18 by mouth ity of tablet 16:07: at [place] [address] bedtime. Medical Branch Fluticasone 2019- Yes 1{puff} Inhale 1 [facility] -Salmeterol 9-18 Puff every it y of (ADVAIR 16:07: 12 [place] DISK) 17 (twelve) Medical 100-50 hours. Branch mcg/dose inhalation disk ibandronate 2018-0 Yes 150mg Take 150 U nivers 150 mg 9-18 mg by ity of tablet 16:07: mouth once [place] [address] every Medical month. Branch Dexlansopra 2018-0 Yes [...] Medic al once every Branch month. IBUPROFEN Yes 1{tbl} Take 1 Univ ers ORAL 9-18 tablet by ity of 16:07: mouth as [place] 17 needed. Medical Branch bisacodyl 5 Yes [id number] 5mg Take 1 [facility] mg EC 9-18 tablet by ity of tablet 00:00: mouth once [place] 00 daily as Medical needed for Branch Constipati on. traMADol 50 Yes [id number] 50mg Take 1 [facility] mg tablet 9-18 tablet by ity o f 00:00: mouth [place] 00 every 6 Medical (six) Branch hours as needed for Pain (scale 7-10). bisacodyl 5 Yes [id number] 5mg Take 1 [facility] mg EC 9-18 tablet by ity of tablet 00:00: mouth once [place] 00 daily as Medical needed for Branch Constipati on. traMADol 50 Yes [id number] 50mg Take 1 [facility] mg tablet 9-18 tablet by ity o f 00:00: mouth [place] 00 every 6 Medical (six) Branch hours as needed for Pain (scale 7-10). bisacodyl 5 Yes [id number] 5mg Take 1 [facility] mg EC 9-18 tablet by ity of tablet 00:00: mouth once [place] 00 daily as Medical needed for Branch Constipati on. traMADol 50 2019-0 Yes [id number] 50mg Take 1 [facility] mg tablet 9-18 tablet by ity o f 00:00: mouth [place] 00 every 6 Medical (six) Branch hours as needed for Pain (scale 7-10). bisacodyl 5 2019-0 Yes [id number] 5mg Take 1 [facility] mg EC 9-18 tablet by ity of tablet 00:00: mouth once [place] 00 daily as Medical needed for Branch Constipati on. traMADol 50 2019-0 Yes [id number] 50mg Take 1 [facility] mg tablet 9-18 tablet by ity o f 00:00: mouth [place] 00 every 6 Medical (six) Branch hours as needed for Pain (scale 7-10). bisacodyl 5 2019-0 Yes [id number] 5mg Take 1 [facility] mg EC 9-18 tablet by ity of tablet 00:00: mouth once [place] 00 daily as Medical needed for Branch Constipati on. traMADol 50 2019-0 Yes [id number] 50mg Take 1 [facility] mg tablet 9-18 tablet by ity o f 00:00: mouth [place] 00 every 6 Medical (six) Branch hours as needed for Pain (scale 7-10). bisacodyl 5 2019-0 Yes [id number] 5mg Take 1 [facility] mg EC 9-18 tablet by ity of tablet 00:00: mouth once [place] 00 daily as Medical needed for Branch Constipati on. traMADol 50 2019-0 Yes [id number] 50mg Take 1 [facility] mg tablet 9-18 tablet by ity o f 00:00: mouth [place] 00 every 6 Medical (six) Branch hours as needed for Pain (scale 7-10). bisacodyl 5 2019-0 Yes [id number] 5mg Take 1 [facility] mg EC 9-18 tablet by ity of tablet 00:00: mouth once [place] 00 daily as Medical needed for Branch Constipati on. traMADol 50 2019-0 Yes [id number] 50mg Take 1 [facility] mg tablet 9-18 tablet by ity o f 00:00: mouth [place] 00 every 6 Medical (six) Branch hours as needed for Pain (scale 7-10). bisacodyl 5 2019-0 Yes [id number] 5mg Take 1 [facility] mg EC 9-18 tablet by ity of tablet 00:00: mouth once [place] 00 daily as Medical needed for Branch Constipati on. traMADol 50 2019-0 Yes [id number] 50mg Take 1 [facility] mg tablet 9-18 tablet by ity o f 00:00: mouth [place] 00 every 6 Medical (six) Branch hours as needed for Pain (scale 7-10). bisacodyl 5 2019-0 Yes [id number] 5mg Take 1 [facility] mg EC 9-18 tablet by ity of tablet 00:00: mouth once [place] 00 daily as Medical needed for Branch Constipati on. traMADol 50 2019-0 Yes [id number] 50mg Take 1 [facility] mg tablet 9-18 tablet by ity o f 00:00: mouth [place] 00 every 6 Medical (six) Branch hours as needed for Pain (scale 7-10). bisacodyl 5 2019-0 Yes [id number] 5mg Take 1 [facility] mg EC 9-18 tablet by ity of tablet 00:00: mouth once [place] 00 daily as Medical needed for Branch Constipati on. traMADol 50 2018-0 Yes [id number] 50mg Take 1 [facility] mg tablet 9-18 tablet by ity o f 00:00: mouth [place] 00 every 6 Medical (six) Branch hours as needed for Pain (scale 7-10). bisacodyl 5 2018-0 Yes [id number] 5mg Take 1 [facility] mg EC 9-18 tablet by ity of tablet 00:00: mouth once [place] 00 daily as Medical needed for Branch Constipati on. traMADol 50 2019-0 Yes [id number] 50mg Take 1 [facility] mg tablet 9-18 tablet by ity o f 00:00: mouth [place] 00 every 6 Medical (six) Branch hours as needed for Pain (scale 7-10). bisacodyl 5 2019-0 Yes [id number] 5mg Take 1 [facility] mg EC 9-18 tablet by ity of tablet 00:00: mouth once [place] 00 daily as Medical needed for Branch Constipati on. traMADol 50 2019-0 Yes [id number] 50mg Take 1 [facility] mg tablet 9-18 tablet by ity o f 00:00: mouth [place] 00 every 6 Medical (six) Branch hours as needed for Pain (scale 7-10). bisacodyl 5 2019-0 Yes [id number] 5mg Take 1 [facility] mg EC 9-18 tablet by ity of tablet 00:00: mouth once [place] 00 daily as Medical needed for Branch Constipati on. traMADol 50 2019-0 Yes [id number] 50mg Take 1 [facility] mg tablet 9-18 tablet by ity o f 00:00: mouth [place] 00 every 6 Medical (six) Branch hours as needed for Pain (scale 7-10). bisacodyl 5 2019-0 Yes [id number] 5mg Take 1 [facility] mg EC 9-18 tablet by ity of tablet 00:00: mouth once [place] 00 daily as Medical needed for Branch Constipati on. traMADol 50 2019-0 Yes [id number] 50mg Take 1 [facility] mg tablet 9-18 tablet by ity o f 00:00: mouth [place] 00 every 6 Medical (six) Branch hours as needed for Pain (scale 7-10). bisacodyl 5 2019-0 Yes [id number] 5mg Take 1 [facility] mg EC 9-18 tablet by ity of tablet 00:00: mouth once [place] 00 daily as Medical needed for Branch Constipati on. traMADol 50 2019-0 Yes [id number] 50mg Take 1 [facility] mg tablet 9-18 tablet by ity o f 00:00: mouth [place] 00 every 6 Medical (six) Branch hours as needed for Pain (scale 7-10). bisacodyl 5 2019-0 Yes [id number] 5mg Take 1 [facility] mg EC 9-18 tablet by ity of tablet 00:00: mouth once [place] 00 daily as Medical needed for Branch Constipati on. traMADol 50 2019-0 Yes [id number] 50mg Take 1 [facility] mg tablet 9-18 tablet by ity o f 00:00: mouth [place] 00 every 6 Medical (six) Branch hours as needed for Pain (scale 7-10). bisacodyl 5 2019-0 Yes [id number] 5mg Take 1 [facility] mg EC 9-18 tablet by ity of tablet 00:00: mouth once [place] 00 daily as Medical needed for Branch Constipati on. traMADol 50 2019-0 Yes [id number] 50mg Take 1 [facility] mg tablet 9-18 tablet by ity o f 00:00: mouth [place] 00 every 6 Medical (six) Branch hours as needed for Pain (scale 7-10). bisacodyl 5 2019-0 Yes [id number] 5mg Take 1 [facility] mg EC 9-18 tablet by ity of tablet 00:00: mouth once [place] 00 daily as Medical needed for Branch Constipati on. traMADol 50 2019-0 Yes [id number] 50mg Take 1 [facility] mg tablet 9-18 tablet by ity o f 00:00: mouth [place] 00 every 6 Medical (six) Branch hours as needed for Pain (scale 7-10). bisacodyl 5 Yes [id number] 5mg Take 1 [facility] mg EC 9-18 tablet by ity of tablet 00:00: mouth once [place] 00 daily as Medical needed for Branch Constipati on. bisacodyl 5 Yes [id number] 5mg Take 1 [facility] mg EC 9-18 tablet by ity of tablet 00:00: mouth once [place] 00 daily as Medical needed for Branch Constipati on. bisacodyl 5 Yes [id number] 5mg Take 1 [facility] mg EC 9-18 tablet by ity of tablet 00:00: mouth once [place] 00 daily as Medical needed for Branch Constipati on. bisacodyl 5 Yes [id number] 5mg Take 1 [facility] mg EC 9-18 tablet by ity of tablet 00:00: mouth once [place] 00 daily as Medical needed for Branch Constipati on. bisacodyl 5 Yes [id number] 5mg Take 1 [facility] mg EC 9-18 tablet by ity of tablet 00:00: mouth once [place] 00 daily as Medical needed for Branch Constipati on. bisacodyl 5 Yes [id number] 5mg Take 1 [facility] mg EC 9-18 tablet by ity of tablet 00:00: mouth once [place] 00 daily as Medical needed for Branch Constipati on. bisacodyl 5 Yes [id number] 5mg Take 1 [facility] mg EC 9-18 tablet by ity of tablet 00:00: mouth once [place] 00 daily as Medical needed for Branch Constipati on. bisacodyl 5 Yes [id number] 5mg Take 1 [facility] mg EC 9-18 tablet by ity of tablet 00:00: mouth once [place] 00 daily as Medical needed for Branch Constipati on. bisacodyl 5 Yes [id number] 5mg Take 1 [facility] mg EC 9-18 tablet by ity of tablet 00:00: mouth once [place] 00 daily as Medical needed for Branch Constipati on. bisacodyl 5 Yes [id number] 5mg Take 1 [facility] mg EC 9-18 tablet by ity of tablet 00:00: mouth once [place] 00 daily as Medical needed for Branch Constipati on. traMADol 50 2021- No [id number] 50mg Take 1 [facility] mg tablet 10-26 tablet by ity of 00:00: 00:00 mouth [place] 00 :00 every 6 Medical (six) Branch hours as needed for Pain (scale 7-10). cyanocobala Yes [id number] 1000ug inject 1 [facility] min 7-23 mL under ity of (VITAMIN 00:00: the skin [place] B-12) 1,000 00 every 14 Medi kj mcg/mL (fourteen) Branch injection days. cyanocobala Yes [id number] 1000ug inject 1 [facility] min 7-23 mL under ity of (VITAMIN 00:00: the skin [place] B-12) 1,000 00 every 14 Medi kj mcg/mL (fourteen) Branch injection days. cyanocobala Yes [id number] 1000ug inject 1 [facility] min 7-23 mL under ity of (VITAMIN 00:00: the skin [place] B-12) 1,000 00 every 14 Medi kj mcg/mL (fourteen) Branch injection days. cyanocobala Yes [id number] 1000ug inject 1 [facility] min 7-23 mL under ity of (VITAMIN 00:00: the skin [place] B-12) 1,000 00 every 14 Medi kj mcg/mL (fourteen) Branch injection days. cyanocobala Yes [id number] 1000ug inject 1 [facility] min 7-23 mL under ity of (VITAMIN 00:00: the skin [place] B-12) 1,000 00 every 14 Medi kj mcg/mL (fourteen) Branch injection days. cyanocobala Yes [id number] 1000ug inject 1 [facility] min 7-23 mL under ity of (VITAMIN 00:00: the skin [place] B-12) 1,000 00 every 14 Medi kj mcg/mL (fourteen) Branch injection days. cyanocobala Yes [id number] 1000ug inject 1 [facility] min 7-23 mL under ity of (VITAMIN 00:00: the skin [place] B-12) 1,000 00 every 14 Medi kj mcg/mL (fourteen) Branch injection days. cyanocobala Yes [id number] 1000ug inject 1 [facility] min 7-23 mL under ity of (VITAMIN 00:00: the skin [place] B-12) 1,000 00 every 14 Medi kj mcg/mL (fourteen) Branch injection days. cyanocobala Yes [id number] 1000ug inject 1 [facility] min 7-23 mL under ity of (VITAMIN 00:00: the skin [place] B-12) 1,000 00 every 14 Medi kj mcg/mL (fourteen) Branch injection days. cyanocobala Yes [id number] 1000ug inject 1 [facility] min 7-23 mL under ity of (VITAMIN 00:00: the skin [place] B-12) 1,000 00 every 14 Medi kj mcg/mL (fourteen) Branch injection days. cyanocobala Yes [id number] 1000ug inject 1 [facility] min 7-23 mL under ity of (VITAMIN 00:00: the skin [place] B-12) 1,000 00 every 14 Medi kj mcg/mL (fourteen) Branch injection days. cyanocobala Yes [id number] 1000ug inject 1 [facility] min 7-23 mL under ity of (VITAMIN 00:00: the skin [place] B-12) 1,000 00 every 14 Medi kj mcg/mL (fourteen) Branch injection days. cyanocobala Yes [id number] 1000ug inject 1 [facility] min 7-23 mL under ity of (VITAMIN 00:00: the skin [place] B-12) 1,000 00 every 14 Medi kj mcg/mL (fourteen) Branch injection days. cyanocobala Yes [id number] 1000ug inject 1 [facility] min 7-23 mL under ity of (VITAMIN 00:00: the skin [place] B-12) 1,000 00 every 14 Medi kj mcg/mL (fourteen) Branch injection days. cyanocobala 2020- No [id number] 1000ug inject 1 [facility] min 7-23 01-27 mL under ity of (VITAMIN 00:00: 00:00 [place] B-12) 1,000 00 :00 every 14 Medi jk mcg/mL (fourteen) Branch injection days. cyanocobala 2020- No [id number] 1000ug inject 1 [facility] min 7-23 01-27 [...] Medic al once every Branch month. cyanocobala 0 Yes 1000ug 1,000 mcg [facility] min 1,000 [...] 25 every Medical morning. Branch Nitrofurant Yes [id number] 100mg Take 1 [facility] oin&Nit. 5-14 capsule by ity o f [place] 00:00: [place] (MACROBID) 00 (two) Medical 100 mg times Branch capsule daily. For 3 days prn UTi symptoms Nitrofurant Yes [id number] 100mg Take 1 [facility] oin&Nit. 5-14 capsule by ity o f [place] 00:00: mouth 2 [place] (MACROBID) 00 (two) Medical 100 mg times Branch capsule daily. For 3 days prn UTi symptoms Nitrofurant Yes [id number] 100mg Take 1 [facility] oin&Nit. 5-14 capsule by ity o f [place] 00:00: mouth 2 [place] (MACROBID) 00 (two) Medical 100 mg times Branch capsule daily. For 3 days prn UTi symptoms Nitrofurant 2018- Yes [id number] 100mg Take 1 [facility] oin&Nit. 5-14 capsule by ity o f [place] 00:00: mouth 2 [place] (MACROBID) 00 (two) Medical 100 mg times Branch capsule daily. For 3 days prn UTi symptoms Nitrofurant 2018- Yes [id number] 100mg Take 1 [facility] oin&Nit. 5-14 capsule by ity o f [place] 00:00: mouth 2 [place] (MACROBID) 00 (two) Medical 100 mg times Branch capsule daily. For 3 days prn UTi symptoms Nitrofurant 2018- Yes [id number] 100mg Take 1 [facility] oin&Nit. 5-14 capsule by ity o f [place] 00:00: mouth 2 [place] (MACROBID) 00 (two) Medical 100 mg times Branch capsule daily. For 3 days prn UTi symptoms Nitrofurant Yes [id number] 100mg Take 1 [facility] oin&Nit. 5-14 capsule by ity o f [place] 00:00: mouth 2 [place] (MACROBID) 00 (two) Medical 100 mg times Branch capsule daily. For 3 days prn UTi symptoms Nitrofurant Yes [id number] 100mg Take 1 [facility] oin&Nit. 5-14 capsule by ity o f [place] 00:00: mouth 2 [place] (MACROBID) 00 (two) Medical 100 mg times Branch capsule daily. For 3 days prn UTi symptoms Nitrofurant Yes [id number] 100mg Take 1 [facility] oin&Nit. 5-14 capsule by ity o f [place] 00:00: mouth 2 [place] (MACROBID) 00 (two) Medical 100 mg times Branch capsule daily. For 3 days prn UTi symptoms Nitrofurant Yes [id number] 100mg Take 1 [facility] oin&Nit. 5-14 capsule by ity o f [place] 00:00: mouth 2 [place] (MACROBID) 00 (two) Medical 100 mg times Branch capsule daily. For 3 days prn UTi symptoms Nitrofurant Yes [id number] 100mg Take 1 [facility] oin&Nit. 5-14 capsule by ity o f [place] 00:00: mouth 2 [place] (MACROBID) 00 (two) Medical 100 mg times Branch capsule daily. For 3 days prn UTi symptoms Nitrofurant 2018- Yes [id number] 100mg Take 1 [facility] oin&Nit. 5-14 capsule by ity o f [place] 00:00: mouth 2 [place] (MACROBID) 00 (two) Medical 100 mg times Branch capsule daily. For 3 days prn UTi symptoms Nitrofurant 2019-0 Yes [id number] 100mg Take 1 [facility] oin&Nit. 5-14 capsule by ity o f [place] 00:00: mouth 2 [place] (MACROBID) 00 (two) Medical 100 mg times Branch capsule daily. For 3 days prn UTi symptoms Nitrofurant 2019-0 Yes [id number] 100mg Take 1 [facility] oin&Nit. 5-14 capsule by ity o f [place] 00:00: mouth 2 [place] (MACROBID) 00 (two) Medical 100 mg times Branch capsule daily. For 3 days prn UTi symptoms Nitrofurant 2018- 2020- No [id number] 100mg Take 1 [facility] oin&Nit. 5-14 -27 capsule by ity of Macrocryst 00:00: 00:00 mouth 2 [place] [facility] (MACROBID) 00 :00 (two) Medical 100 mg times Branch capsule daily. For 3 days prn UTi symptoms Nitrofurant 2018-0 2020- No [id number] 100mg Take 1 [facility] oin&Nit. 5-14 -27 capsule by ity of Macrocryst 00:00: 00:00 mouth 2 [place] as (MACROBID) 00 :00 (two) Medical 100 mg times Branch capsule daily. For 3 days prn UTi symptoms Fluticasone 2019- Yes 1{puff} Inhale 1 Univers -Salmeterol 4-23 [...] 2-21 mouth ity of no.63/iron/ 18:30: daily. [facility] 11 Medical (M-VIT Branch ORAL) multivit-mi 2017-02 Yes Take by Uni vers ns 2-21 mouth ity of no.63/iron/ 18:30: daily. [facility] 11 Medical (M-VIT Branch ORAL) multivit-mi 2017-02 Yes Take by Uni vers ns 2-21 mouth ity of no.63/iron/ 18:30: daily. [facility] 11 Medical (M-VIT Branch ORAL) multivit-mi 2017-02 Yes Take by Uni vers ns 2-21 mouth ity of no.63/iron/ 18:30: daily. [facility] 11 Medical (M-VIT Branch ORAL) multivit-mi 2017-02 Yes Take by Uni vers ns 2-21 mouth ity of no.63/iron/ 18:30: daily. [facility] 11 Medical (M-VIT Branch ORAL) multivit-mi 2017-02 Yes Take by Uni vers ns 2-21 mouth ity of no.63/iron/ 18:30: daily. [facility] 11 Medical (M-VIT Branch ORAL) atorvastati 2017-02 Yes 10mg Take 10 mg Univers n 10 mg 2-16 by mouth ity of tablet 20:55: at [place] 51 bedtime. Medical Branch ibandronate 2017-02 Yes 150mg Take 150 U nivers 150 mg 2-16 mg by ity of tablet 20:55: mouth once [place] [address] every Medical month. Branch Dexlansopra 2017- Yes Take by Uni vers zole 2-16 mouth. ity of (DEXILANT) 20:55: [place] 60 mg 51 Medical capsule Branch atorvastati 2017-02 Yes 10mg Take 10 mg Univers n 10 mg 2-16 by mouth ity of tablet 20:55: at [place] [address] bedtime. Medical Branch ibandronate 2018- Yes 150mg Take 150 U nivers 150 mg 2-16 mg by ity of tablet 20:55: mouth once [place] [address] every Medical month. Branch Dexlansopra 2017- Yes Take by Uni vers zole 2-16 mouth. ity of (DEXILANT) 20:55: [place] 60 mg 51 Medical capsule Branch atorvastati 2017-02 Yes 10mg Take 10 mg Univers n 10 mg 2-16 by mouth ity of tablet 20:55: at [place] [address] bedtime. Medical Branch ibandronate 2018- Yes 150mg Take 150 U nivers 150 mg 2-16 mg by ity of tablet 20:55: mouth once [place] [address] every Medical month. Branch Dexlansopra 2017-02 Yes Take by Uni vers zole 2-16 mouth. ity of (DEXILANT) 20:55: [place] 60 mg 51 Medical capsule Branch atorvastati 2017-02 Yes 10mg Take 10 mg Univers n 10 mg 2-16 by mouth ity of tablet 20:55: at [place] [address] bedtime. Medical Branch ibandronate 2018- Yes 150mg Take 150 U nivers 150 mg 2-16 mg by ity of tablet 20:55: mouth once [place] [address] every Medical month. Branch Dexlansopra 2017- Yes Take by Uni vers zole 2-16 mouth. ity of (DEXILANT) 20:55: [place] 60 mg 51 Medical capsule Branch atorvastati 2017- Yes 10mg Take 10 mg Univers n 10 mg 2-16 by mouth ity of tablet 20:55: at [place] [address] bedtime. Medical Branch ibandronate 2018- Yes 150mg Take 150 U nivers 150 mg 2-16 mg by ity of tablet 20:55: mouth once [place] [address] every Medical month. Branch Dexlansopra 2017- Yes Take by Uni vers zole 2-16 mouth. ity of (DEXILANT) 20:55: [place] 60 mg 51 Medical capsule Branch atorvastati 2017-02 Yes 10mg Take 10 mg Univers n 10 mg 2-16 by mouth ity of tablet 20:55: at [place] 51 bedtime. Medical Branch ibandronate 2017-02 Yes 150mg Take 150 U nivers 150 mg 2-16 mg by ity of tablet 20:55: mouth once [place] every Medical month. Branch Dexlansopra 2017-02 Yes Take by Uni vers zole 2-16 mouth. ity of (DEXILANT) 20:55: [place] 60 mg 51 Medical capsule Branch Vitamin B Vitamin B Yes [place] as Comm on 12 12 [place] directed [facility] Boniva Boniva Yes [place] 1 tablet Common [place] [facility] Dexilant Dexilant Yes [place] 1 capsule C ommon [place] [facility] Caltrate Caltrate Yes [place] 1 tablet Co mmon 600+D3 600+D3 [place] with a Spiri t meal [facility] Levothyroxi Levothyroxi Yes [place] 1 tablet Common ne Sodium ne Sodium [place] in the Spirit morning on - [facility] an empty [facility] Rosuvastati Rosuvastati Yes [place] 1 tablet Common n Calcium n Calcium [place] S pirit [facility] Nitrofurant Nitrofurant Yes [place] 1 capsule Common oin oin [place] with food Spirit Macrocrysta Macrocrysta or milk - [facility] l l [facility] Advair Advair Yes [place] 1 puff Common Diskus Diskus [place] [facility] Dexilant 60 Dexilant 60 No 1{capsu QD [...] Immunizations Ordered Filled Immunization Date Status Comments Sour e Immunization Name Name SARS-COV-2 COVID-19 2020-04-23 Completed Unive rsity of PFIZER VACCINE 00:00:00 [facility] SARS-COV-2 COVID-19 2020-04-23 Completed Unive rsity of PFIZER VACCINE 00:00:00 [place] [facility] Branch SARS-COV-2 COVID-19 2020-04-23 Completed Unive rsity of PFIZER VACCINE 00:00:00 [facility] Branch SARS-COV-2 COVID-19 2020-04-23 Completed Unive rsity of PFIZER VACCINE 00:00:00 [facility] Branch SARS-COV-2 COVID-19 2020-04-23 Completed Unive rsity of PFIZER VACCINE 00:00:00 [facility] Branch SARS-COV-2 COVID-19 2020-04-23 Completed Unive rsity of PFIZER VACCINE 00:00:00 [facility] Branch SARS-COV-2 COVID-19 2020-04-23 Completed Unive rsity of PFIZER VACCINE 00:00:00 [facility] Branch SARS-COV-2 COVID-19 2020-04-23 Completed Unive rsity of PFIZER VACCINE 00:00:00 [facility] Branch SARS-COV-2 COVID-19 2020-04-23 Completed Unive rsity of PFIZER VACCINE 00:00:00 [facility] Branch SARS-COV-2 COVID-19 2020-04-23 Completed Unive rsity of PFIZER VACCINE 00:00:00 [facility] Branch SARS-COV-2 COVID-19 2020-04-02 Completed Unive rsity of PFIZER VACCINE 00:00:00 [facility] Branch SARS-COV-2 COVID-19 2020-04-02 Completed Unive rsity of PFIZER VACCINE 00:00:00 [facility] Branch SARS-COV-2 COVID-19 2020-04-02 Completed Unive rsity of PFIZER VACCINE 00:00:00 [facility] Branch SARS-COV-2 COVID-19 2020-04-02 Completed Unive rsity of PFIZER VACCINE 00:00:00 [facility] Branch SARS-COV-2 COVID-19 2020-04-02 Completed Unive rsity of PFIZER VACCINE 00:00:00 [facility] Branch SARS-COV-2 COVID-19 2020-04-02 Completed Unive rsity of PFIZER VACCINE 00:00:00 [facility] SARS-COV-2 COVID-19 2020-04-02 Completed Unive rsity of PFIZER VACCINE 00:00:00 [facility] Branch SARS-COV-2 COVID-19 2020-04-02 Completed Unive rsity of PFIZER VACCINE 00:00:00 [facility] SARS-COV-2 COVID-19 2020-04-02 Completed Unive rsity of PFIZER VACCINE 00:00:00 [facility] SARS-COV-2 COVID-19 2020-04-02 Completed Unive rsity of PFIZER VACCINE 00:00:00 [facility] Influenza High Dose 2019-03-06 Completed Unive rsity of 00:00:00 [facility] Influenza High Dose 2019-03-06 Completed Unive rsity of 00:00:00 [facility] Influenza High Dose 2019-03-06 Completed Unive rsity of 00:00:00 [facility] Influenza High Dose 2019-03-06 Completed Unive rsity of 00:00:00 [facility] Influenza High Dose 2019-03-06 Completed Unive rsity of 00:00:00 [facility] Influenza High Dose 2019-03-06 Completed Unive rsity of 00:00:00 [facility] Influenza High Dose 2019-03-06 Completed Unive rsity of 00:00:00 [facility] Influenza High Dose 2019-03-06 Completed Unive rsity of 00:00:00 [facility] Influenza High Dose 2019-03-06 Completed Unive rsity of 00:00:00 [facility] Influenza High Dose 2019-03-06 Completed Unive rsity of 00:00:00 [facility] Influenza High Dose 2019-03-06 Completed Unive rsity of 00:00:00 [facility] Influenza High Dose 2019-03-06 Completed Unive rsity of 00:00:00 [facility] Influenza High Dose 2019-03-06 Completed Unive rsity of 00:00:00 [facility] Influenza High Dose 2019-03-06 Completed Unive rsity of 00:00:00 [facility] Influenza High Dose 2019-03-06 Completed Unive rsity of 00:00:00 [facility] Influenza High Dose 2019-03-06 Completed Unive rsity of 00:00:00 [facility] Influenza High Dose 2019-03-06 Completed Unive rsity of 00:00:00 [facility] Influenza High Dose 2019-03-06 Completed Unive rsity of 00:00:00 [facility] Influenza High Dose 2019-03-06 Completed Unive rsity of 00:00:00 [place] [facility] Influenza High Dose 2019-03-06 Completed Unive rsity of 00:00:00 [facility] Branch Influenza High Dose 2019-03-06 Completed Unive rsity of 00:00:00 [facility] Branch TD, NOS 2015-07-31 Completed University of 00:00:00 [place] [facility] Td 2015-07-31 Completed University of 00:00:00 [facility] Branch TD, NOS 2015-07-31 Completed University of 00:00:00 [place] [facility] Td 2015-07-31 Completed University of [...] Branch Td 2015-07-31 Completed University of 00:00:00 [place] [facility] Td 2015-07-31 Completed University of 00:00:00 [place] [facility] Td 2015-07-31 Completed University of 00:00:00 [place] [facility] Td 2015-07-31 Completed University of 00:00:00 [place] [facility] Td 2015-07-31 Completed University of 00:00:00 [place] [facility] Td 2015-07-31 Completed University of 00:00:00 [place] [facility] Td 2015-07-31 Completed University of 00:00:00 [place] [facility] Td 2015-07-31 Completed University of 00:00:00 [place] [facility] Td 2015-07-31 Completed University of 00:00:00 [place] [facility] Td 2015-07-31 Completed University of 00:00:00 [place] [facility] Td 2015-07-31 Completed University of 00:00:00 [place] [facility] Td 2015-07-31 Completed University of 00:00:00 [facility] TD, NOS 2015-07-31 Completed University of 00:00:00 [facility] Vital Signs Vital Name Observation Time Observation Value Comments Source Systolic blood 2022-04-23 17:39:00 122 mm[Hg] Univer sity of pressure [facility] Diastolic blood 2022-04-23 17:39:00 49 mm[Hg] Unive rsity of [facility] Heart rate 2022-04-23 17:39:00 67 /min [facility] Respiratory rate 2022-04-23 17:39:00 19 /min [facility] Oxygen saturation in 2022-04-23 17:39:00 96 /min [facility] Arterial blood by [facility] Pulse oximetry [place] Body temperature 2022-04-23 15:47:00 36.83 Grace [facility] Body height 2022-04-23 15:47:00 170.2 cm [facility] Body weight 2022-04-23 15:47:00 92.08 kg [facility] BMI 2022-04-23 15:47:00 31.79 kg/m2 [facility] Systolic blood 2022-03-09 17:39:00 123 mm[Hg] Univer sity of pressure [facility] Diastolic blood 2022-03-09 17:39:00 77 mm[Hg] Unive rsity of pressure [facility] Heart rate 2022-03-09 17:39:00 85 /min [facility] Body temperature 2022-03-09 17:39:00 37.28 Grace [facility] Respiratory rate 2022-03-09 17:39:00 18 /min [facility] Body weight 2022-03-09 17:39:00 95.255 kg [facility] BMI 2022-03-09 17:39:00 33.89 kg/m2 [facility] Oxygen saturation in 2022-03-09 17:39:00 98 /min [facility] of Arterial blood by [place] [facility] kj Pulse oximetry Branch Systolic blood 2022-02-21 03:01:00 148 mm[Hg] [facility] Diastolic blood 2022-02-21 03:01:00 73 mm[Hg] [facility] Heart rate 2022-02-21 03:01:00 78 /min [facility] Body temperature 2022-02-21 03:01:00 37.11 Grace [facility] Respiratory rate 2022-02-21 03:01:00 16 /min [facility] Body weight 2022-02-21 03:01:00 95.255 kg [facility] BMI 2022-02-21 03:01:00 33.89 kg/m2 [facility] Oxygen saturation in 2022-02-21 03:01:00 98 /min University of Arterial blood by [facility] Pulse oximetry Branch Systolic blood 2021-04-07 21:34:00 128 mm[Hg] [facility] Diastolic blood 2021-04-07 21:34:00 50 mm[Hg] [facility] Heart rate 2021-04-07 21:34:00 69 /min [facility] Body height 2021-04-07 21:34:00 167.6 cm [facility] Body weight 2021-04-07 21:34:00 97.977 kg [facility] BMI 2021-04-07 21:34:00 34.86 kg/m2 [facility] Body temperature 2021-04-07 21:30:00 36 Grace [facility] Respiratory rate 2021-04-07 21:30:00 16 /min [facility] Oxygen saturation in 2021-04-07 21:30:00 94 /min [facility] Pulse oximetry [facility] Systolic blood 2019-04-20 13:18:00 124 mm[Hg] [facility] Diastolic blood 2019-04-20 13:18:00 76 mm[Hg] [facility] Heart rate 2019-04-20 13:18:00 68 /min [facility] Body temperature 2019-04-20 13:18:00 36.17 Grace [facility] Respiratory rate 2019-04-20 13:18:00 18 /min [facility] Body height 2019-04-20 13:18:00 170.2 cm [facility] Body weight 2019-04-20 13:18:00 94.167 kg [facility] BMI 2019-04-20 13:18:00 32.51 kg/m2 [facility] Oxygen saturation in 2019-04-20 13:18:00 98 /min University of Arterial blood by [facility] kj Pulse oximetry Branch Systolic blood 2019-04-20 13:18:00 124 mm[Hg] [facility] Diastolic blood 2019-04-20 13:18:00 76 mm[Hg] [facility]ive [facility] Heart rate 2019-04-20 13:18:00 68 /min [facility] Body temperature 2019-04-20 13:18:00 36.17 Grace [facility] Respiratory rate 2019-04-20 13:18:00 18 /min [facility] Body height 2019-04-20 13:18:00 170.2 cm [facility] Body weight 2019-04-20 13:18:00 94.167 kg [facility] BMI 2019-04-20 13:18:00 32.51 kg/m2 [facility] Oxygen saturation in 2019-04-20 13:18:00 98 /min [facility] Arterial blood by [place] [facility] kj Pulse oximetry Branch Systolic blood 2019-03-27 14:25:00 124 mm[Hg] [facility] Diastolic blood 2019-03-27 14:25:00 80 mm[Hg] [facility]ive [facility] Heart rate 2019-03-27 14:25:00 73 /min [facility] Respiratory rate 2019-03-27 14:25:00 17 /min [facility] Body height 2019-03-27 14:25:00 170.2 cm [facility] Body weight 2019-03-27 14:25:00 93.94 kg [facility] BMI 2019-03-27 14:25:00 32.44 kg/m2 [facility] Oxygen saturation in 2019-03-27 14:25:00 99 /min [facility] Arterial blood by [place] [employer] [facility] Pulse oximetry Branch Systolic blood 2019-03-03 16:28:00 135 mm[Hg] [facility] Diastolic blood 2019-03-03 16:28:00 79 mm[Hg] [facility]ive [facility] Heart rate 2019-03-03 16:28:00 89 /min [facility] Body temperature 2019-03-03 16:28:00 36.78 Rgace [facility] Respiratory rate 2019-03-03 16:28:00 18 /min [facility] Body height 2019-03-03 16:28:00 170.2 cm [facility] Body weight 2019-03-03 16:28:00 93.305 kg [facility] BMI 2019-03-03 16:28:00 32.22 kg/m2 [facility] Oxygen saturation in 2019-03-03 16:28:00 97 /min [facility] Arterial blood by [facility] kj Pulse oximetry Branch Systolic blood 2019-03-06 17:30:00 111 mm[Hg] [facility]iver [facility]ity [facility] Diastolic blood 2019-03-06 17:30:00 72 mm[Hg] Unive [facility]ity [facility] Heart rate 2019-03-06 17:30:00 62 /min [facility] Body temperature 2019-03-06 17:30:00 36.33 Grace [facility] Respiratory rate 2019-03-06 17:30:00 18 /min [facility] Oxygen saturation in 2019-03-06 17:30:00 100 /min [facility] Arterial blood by [facility] kj Pulse oximetry Branch Body height 2019-03-04 05:30:00 170.2 cm [facility] Body weight 2019-03-04 05:30:00 92.579 kg [facility] BMI 2019-03-04 05:30:00 31.97 kg/m2 [facility] Heart rate 2018-10-26 21:30:00 70 /min [facility] Respiratory rate 2018-10-26 21:30:00 13 /min [facility] Systolic blood 2018-10-26 20:53:00 107 mm[Hg] [facility]iver [facility] Diastolic blood 2018-10-26 20:53:00 71 mm[Hg] [facility]ive [facility] Oxygen saturation in 2018-10-26 20:50:00 95 /min [facility] Arterial blood by [facility] kj Pulse oximetry Branch Body temperature 2018-10-26 20:32:00 36.22 Grace [facility] Body height 2018-10-26 16:35:00 170.2 cm [facility] Body weight 2018-10-26 16:35:00 91.627 kg [facility] BMI 2018-10-26 16:35:00 31.64 kg/m2 [facility] Systolic blood 2018-09-15 20:27:00 146 mm[Hg] [facility] Diastolic blood 2018-09-15 20:27:00 73 mm[Hg] [facility]ive [facility] Heart rate 2018-09-15 20:25:00 73 /min [facility] Body temperature 2018-09-15 20:25:00 36.5 Grace [facility] Respiratory rate 2018-09-15 20:25:00 18 /min [facility] Body height 2018-09-15 20:25:00 172.7 cm [facility] Body weight 2018-09-15 20:25:00 90.629 kg [facility] BMI 2018-09-15 20:25:00 30.38 kg/m2 [facility] Oxygen saturation in 2018-09-15 20:25:00 98 /min [facility] Arterial blood by [facility] Pulse oximetry Branch Systolic blood 2022-04-16 17:15:00 145 mm[Hg] Method ist [facility] pressure Diastolic blood 2022-04-16 17:15:00 66 mm[Hg] [facility] pressure Heart rate 2022-04-16 17:15:00 79 /min [facility] Body temperature 2022-04-16 17:15:00 36.67 Grace [facility] Respiratory rate 2022-04-16 17:15:00 20 /min [facility] Oxygen saturation in 2022-04-16 17:15:00 99 /min [facility] Arterial blood by Pulse oximetry BMI 2022-04-16 14:38:00 31.94 kg/m2 [facility] Body height 2022-04-16 14:38:00 170.2 cm [facility] Body weight 2022-04-16 14:38:00 92.488 kg [facility] Procedures Procedure Date / Time Performing Clinician Source Performed CT HEAD WO CONTRAST 2022-04-23 18:24:37 Sandie Almaraz [facility] URINALYSIS 2022-04-23 17:45:00 Sandie Almaraz [facility] XR CHEST 1 VW 2022-04-23 17:29:00 Sandie Almaraz [facility] LIPASE 2022-04-23 17:04:00 Sandie Almaraz [facility] MAGNESIUM 2022-04-23 17:04:00 Sandie Almaraz [facility] TROPONIN I 2022-04-23 17:04:00 Sandie Almaraz [facility] COMP. METABOLIC PANEL 2022-04-23 17:04:00 Sandie Almaraz [facility] ([id number]) [facility] CBC WITH DIFF 2022-04-23 17:04:00 Sandie Almaraz [facility] CONSENT/REFUSAL FOR 2022-04-23 15:40:29 Doctor Unassigned, [facility] DIAGNOSIS AND TREATMENT [facility] SURGICAL PATHOLOGY 2022-04-16 17:43:00 Faby Blair Yazidi [facility] REQUEST COLONOSCOPY 2022-04-16 16:13:00 Mukund [facility] spital URINALYSIS 2022-03-09 19:50:00 Fawn Sterling [facility] Medical [place] CONSENT/REFUSAL FOR 2022-03-09 17:22:31 Doctor Unassnida, [facility] DIAGNOSIS AND TREATMENT [facility] [place] NOTICE OF PRIVACY 2022-02-21 02:38:01 Doctor Unassigned, [facility] PRACTICES [facility] [place] CONSENT/REFUSAL FOR 2022-02-21 02:37:40 Doctor Umberto, [facility] DIAGNOSIS AND TREATMENT [facility] [place] UGI W OR WO KUB 2022-02-20 15:54:14 Fei [facility] SURGICAL PATHOLOGY 2021-11-03 15:10:00 [facility] REQUEST US UPPER GI TRACT, 2021-11-03 13:29:00 [facility] ENDOSCOPIC CBC WITH PLATELET AND 2021-11-03 13:13:00 [facility] DIFFERENTIAL MANUAL DIFFERENTIAL 2021-11-03 13:13:00 [facility] CBC WITH PLATELET AND 2021-11-03 13:13:00 [facility] DIFFERENTIAL ASSIGNMENT OF BENEFITS 2021-07-31 19:51:44 [facility] [place] BARIUM SWALLOW 2021-06-11 15:38:21 [facility] ESOPHAGUS C Medical Branch US ABDOMEN COMPLETE 2021-06-11 15:10:00 [facility] C Medical [place] ASSIGNMENT OF BENEFITS 2021-06-11 13:49:32 Doctor Unassigned, [facility] Name Medical [place] TRANSTHORACIC ECHO (TTE) 2021-04-07 20:23:00 Ammon Hardy [facility] COMPLETE W/ CONTRAST [facility] TROPONIN I 2021-04-07 11:11:00 [facility] o f [facility] BASIC METABOLIC PANEL 2021-04-07 11:11:00 [facility] (NA, K, CL, CO2, GLUCOSE, Medica l Branch BUN, CREATININE, [place]) LIPID PANEL ([id number])(TOTAL 2021-04-07 11:11:00 Rowan [facility] CHOLESTEROL, Medical Branch TRIGLYCERIDES, HDL) CBC WITH DIFF 2021-04-07 11:11:00 Rowan [facility] TROPONIN I 2021-04-07 05:40:00 Rowan [facility] URINALYSIS 2021-04-07 01:06:00 Marta Bradshaw [facility] CBC WITH DIFF 2021-04-07 00:59:00 [facility] / INR 2021-04-07 00:59:00 Marta Bradshaw [facility] XR CHEST 1 VW 2021-04-07 00:51:41 [facility] 2021-04-07 00:43:00 [facility] COMP. METABOLIC PANEL 2021-04-07 00:43:00 Marta Bradshaw [facility] ([id number]) Medical Branch N-TERMINAL PRO-BNP 2021-04-07 00:43:00 Marta Bradshaw [facility] COVID-19 (ID NOW RAPID 2021-04-07 00:43:00 Marta Bradshaw [facility] TESTING) Medical Branch LAB ONLY COVID 2021-04-07 00:43:00 Marta Bradshaw [facility] INTERPRETATION [facility] HB ECG ROUTINE & RHYTHM 2021-04-07 00:20:46 Marta Bradshaw [facility] NOTICE OF PRIVACY 2021-04-07 00:16:15 Doctor Umberto, [facility] PRACTICES [facility] [place] CONSENT/REFUSAL FOR 2021-04-07 00:16:01 Doctor Umberto [facility] DIAGNOSIS AND TREATMENT [facility] [place] AUTHORIZATION FOR RELEASE 2019-04-27 05:01:00 Doctor Umberto, [facility] Name Medical [place] URODYNAMIC STUDY DATA 2019-03-27 06:01:00 Doctor Umberto, [facility] Medical [place] BASIC METABOLIC PANEL 2019-03-06 11:15:00 Franky Dalal [facility] (NA, K, CL, CO2, GLUCOSE, Medica l Branch BUN, CREATININE, CA) CBC WITH DIFFERENTIAL 2019-03-06 11:15:00 Franky Dalal [facility] LACTATE DEHYDROGENASE 2019-03-05 21:30:00 Chauncey Shah [facility] PROTHROMBIN TIME / INR 2019-03-05 21:30:00 Chauncey Shah [facility] D-DIMER 2019-03-05 21:30:[address] [facility] ACTIVATED PARTIAL 2019-03-05 21:30:00 Alyssa [facility] THRMPLAS SUDHIR [facility] FIBRINOGEN 2019-03-05 21:30:[address] [facility] CBC WITH DIFFERENTIAL 2019-03-05 21:30:00 Chauncey Shah [facility] CREATINE KINASE 2019-03-05 10:48:[address] [facility] FERRITIN SERUM 2019-03-05 10:48:[address] [facility] BASIC METABOLIC PANEL 2019-03-05 10:48:00 Franky Dalal [facility] (NA, K, CL, CO2, GLUCOSE, Medica l Branch BUN, CREATININE, CA) CBC WITH DIFFERENTIAL 2019-03-05 10:48:00 Franky Dalal [facility] VITAMIN B12, LEVEL 2019-03-04 11:50:00 [facility]y [facility] FOLATE 2019-03-04 11:50:00 Chauncey Shah [facility] FREE T4 2019-03-04 11:50:[address] [facility] THYROID STIMULATING 2019-03-04 11:50:00 Chauncey Shah [facility] HORMONE [facility] BASIC METABOLIC PANEL 2019-03-04 11:50:00 Franky Dalal [facility] (NA, K, CL, CO2, GLUCOSE, Medica l Branch BUN, CREATININE, CA) IRON PANEL 2019-03-04 11:50:00 Chauncey Shah [facility] CBC WITH DIFFERENTIAL 2019-03-04 11:50:00 Katlin bere [facility] FREE T3 2019-03-04 11:50:[facility] 2019-03-04 11:50:00 Katlin bere [facility] CT ABDOMEN PELVIS W WO 2019-03-04 07:23:52 Franky Dalal [facility] CBC WITH DIFFERENTIAL 2019-03-04 02:43:00 Eliza Bowie [facility] XR CHEST 1 VW 2019-03-04 02:35:27 Eliza Bowie [facility] ADC,CLC OR LCC ONLY - 2019-03-04 02:30:00 Eliza Bowie [facility] INFLUENZA A & B DIRECT Medical [place] ANTIGEN MAGNESIUM 2019-03-04 02:04:00 Katlin [facility] HEPATIC FUNCTION PANEL 2019-03-04 02:04:00 Franky Dalal [facility] ([id number]) (ALB,T.PRO,BILI Medical Branch T,BU/BC,ALT,AST,ALK PHOS) BASIC METABOLIC PANEL 2019-03-04 02:04:00 Eliza Bowie [facility] (NA, K, CL, CO2, GLUCOSE, Medica l Branch BUN, CREATININE, CA) LACTIC ACID WHOLE BLOOD 2019-03-04 01:57:00 Eliza Bowie [facility] ASSIGNMENT OF BENEFITS 2019-03-04 01:18:10 Doctor Unassigned, [facility] NOTICE OF PRIVACY 2019-03-04 01:15:44 Doctor Unassigned, [facility] PRACTICES [facility] CONSENT/REFUSAL FOR 2019-03-04 01:15:31 Doctor Umberto, [facility] DIAGNOSIS AND TREATMENT [facility] [place] URINALYSIS 2019-03-03 19:07:00 Jimmy You [facility] URINE CULTURE 2019-03-03 19:07:00 Jimmy You [facility] DISCLOSURE AND CONSENT, 2019-03-03 06:01:00 [facility] [place] [facility] PROCEDURES INTUBATION 2018-10-26 19:14:15 Malick Rascon [facility] ASSIGNMENT OF BENEFITS 2018-10-26 16:07:13 Doctor [facility]assigned, [facility] [place] [facility] COMP. METABOLIC PANEL 2018-09-27 15:25:00 Mary Ewelina [facility] ([id number]) [facility] CBC WITH DIFFERENTIAL 2018-09-27 15:25:00 Kelechi Noriegakhan [facility] ASSIGNMENT OF BENEFITS 2018-09-27 14:41:15 Doctor [facility]assigned, [facility] [place] [facility] DISCLOSURE AND CONSENT, 2018-09-15 05:01:00 Doctor Unassigned, U [facility] MEDICAL AND SURGICAL [place] [facility] PROCEDURES Plan of Care Planned Activity Planned Date Details Comments Source Future Scheduled 2022-07-27 65+ [facility]AL [facility]:45 VACCINE (1 - PCV) [code = 65+ PNEUMOCOCCAL VACCINE (1 - PCV)] Future Scheduled 2022-07-27 COVID-19 VACCINE (4 - Me [facility] Test 20:52:45 Pfizer series) [code = COVID-19 VACCINE (4 - Pfizer series)] Future Scheduled 2022-07-27 SHINGLES VACCINES (2 Met [facility] Test 20:52:45 of 2) [code = SHINGLES VACCINES (2 of 2)] Future Scheduled 2022-07-27 INFLUENZA VACCINE Method [facility] Test 20:52:45 [code = INFLUENZA VACCINE] Future Scheduled 2022-06-24 65+ PNEUMOCOCCAL Methodi [facility] Test 10:56:49 VACCINE (1 - PCV) [code = 65+ PNEUMOCOCCAL VACCINE (1 - PCV)] Future Scheduled 2022-06-24 COVID-19 VACCINE (4 - Me [facility] Test 10:56:49 Booster for Pfizer series) [code = COVID-19 VACCINE (4 - Booster for Pfizer series)] Future Scheduled 2022-06-24 SHINGLES VACCINES (2 Met [facility] Test 10:56:49 of 2) [code = SHINGLES VACCINES (2 of 2)] Future Scheduled 2022-06-24 INFLUENZA VACCINE Method is Hospital Test 10:56:49 [code = INFLUENZA VACCINE] Future Scheduled 2022-06-24 65+ PNEUMOCOCCAL Methodi Hospital Test 10:56:49 VACCINE (1 - PCV) [code = 65+ PNEUMOCOCCAL VACCINE (1 - PCV)] Future Scheduled 2022-06-24 COVID-19 VACCINE (4 - [facility] Test 10:56:49 Booster for Pfizer series) [code = COVID-19 VACCINE (4 - Booster for Pfizer series)] Future Scheduled 2022-06-24 SHINGLES VACCINES (2 Met [facility] Test 10:56:49 of 2) [code = SHINGLES VACCINES (2 of 2)] Future Scheduled 2022-06-24 INFLUENZA VACCINE Method is Hospital Test 10:56:49 [code = INFLUENZA VACCINE] Future Scheduled 2022-05-29 65+ PNEUMOCOCCAL Methodi Hospital Test 09:29:34 VACCINE (1 - PCV) [code = 65+ PNEUMOCOCCAL VACCINE (1 - PCV)] Future Scheduled 2022-05-29 COVID-19 VACCINE (4 - Me [facility] Test 09:29:34 Booster for Pfizer series) [code = COVID-19 VACCINE (4 - Booster for Pfizer series)] Future Scheduled 2022-05-29 SHINGLES VACCINES (2 Met [facility] Test 09:29:34 of 2) [code = SHINGLES VACCINES (2 of 2)] Future Scheduled 2022-05-29 INFLUENZA VACCINE Method [facility] Test 09:29:34 [code = INFLUENZA VACCINE] Future Scheduled 2022-05-04 65+ PNEUMOCOCCAL Methodi Hospital Test 12:29:40 VACCINE (1 - PCV) [code = 65+ PNEUMOCOCCAL VACCINE (1 - PCV)] Future Scheduled 2022-05-04 COVID-19 VACCINE (4 - Me [facility] Test 12:29:40 Booster for Pfizer series) [code = COVID-19 VACCINE (4 - Booster for Pfizer series)] Future Scheduled 2022-05-04 SHINGLES VACCINES (2 Met [facility] Test 12:29:40 of 2) [code = SHINGLES VACCINES (2 of 2)] Future Scheduled 2022-04-30 65+ PNEUMOCOCCAL Methodi Hospital Test 10:09:26 VACCINE (1 - PCV) [code = 65+ PNEUMOCOCCAL VACCINE (1 - PCV)] Future Scheduled 2022-04-30 COVID-19 VACCINE (4 - Me [facility] Test 10:09:26 Booster for Pfizer series) [code = COVID-19 VACCINE (4 - Booster for Pfizer series)] Future Scheduled 2022-04-30 SHINGLES VACCINES (2 Met [facility] Test 10:09:26 of 2) [code = SHINGLES VACCINES (2 of 2)] Encounters Start End Encounter Admission Attending Care Care Encounter Source Date/Time Date/Time Type Type Clinicians Facility Department ID 2022-06-24 Outpatient Gramajo, [facility] [id number] Common 09:31:00 Gilles [id number] [facility] 2022-03-18 Outpatient [facility], [facility] [id number] Common 14:59:01 Gilles [id number] [facility] 2021-12-15 Outpatient [facility], [facility] [id number] Common 16:05:01 Gilles [id number] [facility] 2021 Outpatient Gramajo, [facility] [id number] Common 13:49:01 Gilles [id number] [facility] 2021-03-05 Outpatient Gramajo, [facility] [id number] Common 14:22:46 Gilles [id number] [facility] 2021-03-05 Outpatient Gramajo, [facility] [id number] Common 12:26:24 Gilles [id number] [facility] 2021-03-05 [facility] [id number] Common 11:14:41 Gilles [id number] [facility] 2022-05-26 2022-05-26 Telemedici Fei, 1.2.840.1 [id number] Methodi 14:30:00 16:10:26 [place] [id number] 3.430.2.7 Hospit a .3.800325 l .8 2022-05-26 2022-05-26 Telemedici Fei, 1.2.840.1 [id number] Methodi 14:30:00 16:10:26 ne [place] [id number] 3.430.2.7 Hospit a .3.038173 l .8 2022-04-27 2022-04-27 Telephone Adam, 1.2.840.2 [id number] Methodi 00:00:00 00:00:[id number] 3.430.2.7 Hospit a .3.742843 l .8 2022-04-27 2022-04-27 Telephone Adam, 1.2.840.8 [id number] Methodi 00:00:00 00:00:[id number] 3.430.2.7 Hospit a .3.488823 l .8 2022-04-23 2022-04-23 Emergency X KIT [facility] ERT [id number] Univers 11:19:00 14:15:00 SANDIE coronel [facility] 2022-04-23 2022-04-23 Emergency [facility] [id number] Univers 11:19:00 14:15:00 [id number] [facility] [id number] [address] 2022-04-16 2022-04-16 [facility] Faby Blair 1.2.840.1 [id number] Methodi 07:52:00 23:59:[address] 3.430.2.7 Hospit a .3.024828 l .8 2022-04-16 2022-04-16 [facility] Faby Blair 1.2.840.1 [id number] 422 [id number] Methodi 07:52:00 23:59:[address] 3.430.2.7 Hospit a .3.869136 l .8 2022-04-16 2022-04-16 Anesthesia Martha Whitman 1.2.840.1 [id number] Methodi 10:13:00 10:50:00 Event Slime Scott 83940.1.[address] 3.430.2.7 Hospit a .3.393574 l .8 2022-04-16 2022-04-16 Anesthesia Martha Whitman 1.2.840.1 [id number] Methodi 10:13:00 10:50:00 Event Slime Scott 27128.1.[address] 3.430.2.7 Hospit a .3.821666 l .8 2022-04-16 2022-04-16 Surgery Mukund, Ali 1.2.840.1 [id number] 2099 247921 Methodi 10:00:00 10:30:[address] 3.430.2.7 Hospit a .3.181231 l .8 2022-04-16 2022-04-16 Surgery Mukund, Ali 1.2.840.1 [id number] 2099 476780 Methodi 10:00:00 10:30:[address] 3.430.2.7 Hospit a .3.487564 l .8 2022-04-16 2022-04-16 Travel 1.2.840.1 1.2.134.566 7532 172148 Methodi 00:00:00 00:00:[address] 3.430.2.7 0.2.7.3.698 Ho spita .3.999660 084.8 l .8 2022-04-16 2022-04-16 Travel 1.2.840.1 1.2.205.371 4364 493402 Methodi 00:00:00 00:00:[address] 3.430.2.7 0.2.7.3.698 Ho spita .3.362874 084.8 l .8 2022-04-15 2022-04-15 Documentat Ramirez, 1.2.840.1 [id number] 000 [id number] Methodi 00:00:00 00:00:00 ion Parisa 73639.1.[address] 3.430.2.7 Hospit a .3.901369 l .8 2022-04-15 2022-04-15 Documentat Ramirez, 1.2.840.1 [id number] 097 [id number] Methodi 00:00:00 00:00:00 ion Parisa 25543.1.[address] 3.430.2.7 Hospit a .3.551921 l .8 2022-03-18 2022-03-18 Orders Ramirez, 1.2.840.1 191809646 687453 9614 Methodi 00:00:00 00:00:00 Only Parisa 41124.1.[address] 3.430.2.7 Hospit a .3.933918 l .8 2022-03-18 2022-03-18 Telephone Faby Blair 1.2.840.1 [id number] 91738109 Methodi 00:00:00 00:00:[address] 3.430.2.7 Hospit a .3.904413 l .8 2022-03-18 2022-03-18 Telephone Faby Blair 1.2.840.1 [id number] 06542512 Methodi 00:00:00 00:00:[address] 3.430.2.7 Hospit a .3.612939 l .8 2022-03-18 2022-03-18 Orders Ramirez, 1.2.840.1 [id number] 485589 8994 Methodi 00:00:00 00:00:00 Only Parisa 79574.1.[address] 3.430.2.7 Hospit a .3.926609 l .8 2022-03-16 2022-03-16 Telephone Faby Blair 1.2.840.1 [id number] 21 [id number] Methodi 00:00:00 00:00:[address] 3.430.2.7 Hospit a .3.896649 l .8 2022-03-16 2022-03-16 Telephone Faby Blair 1.2.840.1 930195109 43218013 Methodi 00:00:00 00:00:[address] 3.430.2.7 Hospit a .3.932393 l .8 2022-03-13 2022-03-13 TelemFaby Fan 1.2.840.1 464951506 2 [id number] Methodi 10:30:00 10:36:[address] 3.430.2.7 Hospit a .3.031005 l .8 2022-03-13 2022-03-13 Telemedici Faby Blair 1.2.840.1 318458586 2 [id number] Methodi 10:30:00 10:36:[address] 3.430.2.7 Hospit a .3.231729 l .8 2022-03-11 2022-03-11 Telephone Adam, 1.2.840.4 0157352221 222 4852229 Methodi 00:00:00 00:00:[address] 3.430.2.7 Hospit a .3.390848 l .8 2022-03-11 2022-03-11 Telephone Adam, 1.2.840.8 [id number] 479 [id number] Methodi 00:00:00 00:00:[address] 3.430.2.7 Hospit a .3.615451 l .8 2022-03-09 2022-03-09 Emergency X YESENIA, [facility] ERT [id number] 1738 Univers 11:41:00 14:58:00 FAWN coronel [facility] 2022-03-09 2022-03-09 Emergency Yesenia [facility] 1.2.840.114 10 [id number] Univers 11:41:00 14:58:00 Fawn WHITLEY 350.1.13.10 i zak [facility] 4.2.7.2.686 [facility] 313.7980872 [place] [address] [place] 2022-02-20 2022-02-[address] [facility], 1.2.840.1 [id number] 48688 47849 Methodi 08:22:19 23:59:00 Encounter Jackson [address]131.1.[address] 3.430.2.7 Hospit a .3.830901 l .8 2022-02-20 2022-02-[address] [facility], 1.2.840.1 [id number] 06977 87947 Methodi 08:22:19 23:59:00 Encounter Jackson [address]388.1.[address] 3.430.2.7 Hospit a .3.354383 l .8 2022-02-20 2022-02-20 Emergency X [facility] ERT 1043 [id number] Univers 21:05:00 21:55:00 , FERMINMIKO coronel [facility] 2022-02-20 2022-02-20 Emergency [facility] 1.2.840.114 [id number] Univers 21:05:00 21:55:00 , [facility] 350.1.13.10 i ty [facility] 4.2.7.2.686 [facility] [phone] [address] 2022-02-20 2022-02-20 Travel 1.2.840.1 1.2.605.721 1213 924765 Methodi 00:00:00 00:00:[address] 3.430.2.7 0.2.7.3.698 Ho spita .3.570196 084.8 l .8 2022-02-20 2022-02-20 Travel 1.2.840.1 1.2.417.906 8812 740192 Methodi 00:00:00 00:00:[address] 3.430.2.7 0.2.7.3.698 Ho spita .3.959460 084.8 l .8 2022-02-12 2022-02-12 Travel 1.2.840.1 1.2.501.952 6182 221187 Methodi 00:00:00 00:00:[address] 3.430.2.7 0.2.7.3.698 Ho spita .3.798503 084.8 l .8 2022-02-12 2022-02-12 Travel 1.2.840.1 1.2.407.253 7564 924177 Methodi 00:00:00 00:00:[address] 3.430.2.7 0.2.7.3.698 Ho spita .3.227940 084.8 l .8 2021-12-30 2021-12-30 Office Fei, 1.2.840.1 744947075 809846 8722 Methodi 08:30:00 10:36:14 Visit Jackson 18901.1.[address] 3.430.2.7 Hospit a .3.560579 l .8 2021-12-30 2021-12-30 Office Fei, 1.2.840.1 638234159 655262 5110 Methodi 08:30:00 10:36:14 Visit Jackson 72785.1.[address] 3.430.2.7 Hospit a .3.695977 l .8 2021-12-30 2021-12-30 Travel 1.2.840.1 1.2.668.243 7174 466212 Methodi 00:00:00 00:00:[address] 3.430.2.7 0.2.7.3.698 Ho spita .3.228926 084.8 l .8 2021-12-30 2021-12-30 Travel 1.2.840.1 1.2.885.952 8463 431432 Methodi 00:00:00 00:00:[address] 3.430.2.7 0.2.7.3.698 Ho spita .3.033330 084.8 l .8 2021-11-13 2021-11-13 Telephone Adam, 1.2.840.7 [id number] 522 9160939 Methodi 00:00:00 00:00:[address] 3.430.2.7 Hospit a .3.523799 l .8 2021-11-13 2021-11-13 Telephone Ramirez, 1.2.840.1 813030619 2099 922519 Methodi 00:00:00 00:00:[address] 3.430.2.7 Hospit a .3.720426 l .8 2021-11-13 2021-11-13 Telephone Adam, 1.2.840.6 3422892536 863 8064331 Methodi 00:00:00 00:00:[address] 3.430.2.7 Hospit a .3.582147 l .8 2021-11-13 2021-11-13 Telephone Ramirez, 1.2.840.1 [id number] 2099 551787 Methodi 00:00:00 00:00:[address] 3.430.2.7 Hospit a .3.648138 l .8 2021-11-11 2021-11-11 Telephone Ramirez, 1.2.840.1 961357109 2099 737415 Methodi 00:00:00 00:00:[address] 3.430.2.7 Hospit a .3.985978 l .8 2021-11-11 2021-11-11 Telephone Ramirez, 1.2.840.1 164197119 2099 137494 Methodi 00:00:00 00:00:[address] 3.430.2.7 Hospit a .3.406335 l .8 2021-11-06 2021-11-06 Telephone Ramirez, 1.2.840.1 463117488 2099 514333 Methodi 00:00:00 00:00:[address] 3.430.2.7 Hospit a .3.727761 l .8 2021-11-06 2021-11-06 Orders Ramirez, 1.2.840.1 [id number] 737548 1155 Methodi 00:00:00 00:00:00 Only Parisa 68272.1.[address] 3.430.2.7 Hospit a .3.439590 l .8 2021-11-06 2021-11-06 Telephone Ramirez, 1.2.840.1 820978104 2100 954006 Methodi 00:00:00 00:00:[address] 3.430.2.7 Hospit a .3.011656 l .8 2021-11-06 2021-11-06 Orders Ramirez, 1.2.840.1 354381820 629747 3589 Methodi 00:00:00 00:00:00 Only Parisa 90878.1.[address] 3.430.2.7 Hospit a .3.422463 l .8 2021-11-03 2021-11-03 Surgery Faby Blair 1.2.840.1 [id number] 2099 238910 Methodi 08:30:00 10:00:[address] 3.430.2.7 Hospit a .3.144338 l .8 2021-11-03 2021-11-03 Surgery Faby Blair 1.2.840.1 516072398 2099 202543 Methodi 08:30:00 10:00:[address] 3.430.2.7 Hospit a .3.779655 l .8 2021-11-03 2021-11-03 [facility] Faby Blair 1.2.840.1 337245684 446 9586754 Methodi 06:34:00 09:46:[address] 3.430.2.7 Hospit a .3.994519 l .8 2021-11-03 2021-11-03 [facility] Faby Blair 1.2.840.1 076660276 552 3973210 Methodi 06:34:00 09:46:[address] 3.430.2.7 Hospit a .3.781033 l .8 2021-11-03 2021-11-03 Anesthesia Tiana Martinez 1.2.840.1 [id number] 3628178362 Methodi 08:30:00 09:04:00 Event Millicent Rivero 76391.1.[address] 3.430.2.7 Hospit a .3.686746 l .8 2021-11-03 2021-11-03 Anesthesia Tiana Martinez 1.2.840.1 447922285 2751393034 Methodi 08:30:00 09:04:00 Event Millicent Rivero 97844.1.[address] 3.430.2.7 Hospit a .3.322315 l .8 2021-11-03 2021-11-03 Travel 1.2.840.1 1.2.283.685 3320 822390 Methodi 00:00:00 00:00:[address] 3.430.2.7 0.2.7.3.698 Ho spita .3.678335 084.8 l .8 2021-11-03 2021-11-03 Travel 1.2.840.1 1.2.600.489 3673 087589 Methodi 00:00:00 00:00:[address] 3.430.2.7 0.2.7.3.698 Ho spita .3.632233 084.8 l .8 2021-10-22 2021-10-22 Telephone Faby Blair 1.2.840.1 [id number] 21 45839011 Methodi 00:00:00 00:00:[address] 3.430.2.7 Hospit a .3.716183 l .8 2021-10-22 2021-10-22 Telephone Faby Blair 1.2.840.1 [id number] 21 77481613 Methodi 00:00:00 00:00:[address] 3.430.2.7 Hospit a .3.050138 l .8 2021-10-21 2021-10-21 Telephone Faby Blair 1.2.840.1 965799570 23818625 Methodi 00:00:00 00:00:[address] 3.430.2.7 Hospit a .3.321230 l .8 2021-10-21 2021-10-21 Telephone Faby Blair 1.2.840.1 [id number] 21 85619610 Methodi 00:00:00 00:00:[address] 3.430.2.7 Hospit a .3.912975 l .8 2021-10-20 2021-10-20 Telephone Faby Blair 1.2.840.1 177479313 08194222 Methodi 00:00:00 00:00:[address] 3.430.2.7 Hospit a .3.220458 l .8 2021-10-20 2021-10-20 Telephone Faby Blair 1.2.840.1 087736033 45224914 Methodi 00:00:00 00:00:[address] 3.430.2.7 Hospit a .3.356118 l .8 2021-10-17 2021-10-17 Telephone Faby Blair 1.2.840.1 [id number] 21 25392957 Methodi 00:00:00 00:00:[address] 3.430.2.7 Hospit a .3.854661 l .8 2021-10-17 2021-10-17 Telephone Faby Blair 1.2.840.1 519015586 21 90288857 Methodi 00:00:00 00:00:[address] 3.430.2.7 Hospit a .3.433516 l .8 2021-10-16 2021-10-16 Office Faby Blair 1.2.840.1 470479864 2100 594658 Methodi 15:00:00 15:00:[address] 3.430.2.7 Hospit a .3.296602 l .8 2021-10-16 2021-10-16 Office Faby Blair 1.2.840.1 860214636 2099 300531 Methodi 15:00:00 15:00:[address] 3.430.2.7 Hospit a .3.928325 l .8 2021-10-16 2021-10-16 Travel 1.2.840.1 1.2.755.871 0080 640221 Methodi 00:00:00 00:00:[address] 3.430.2.7 0.2.7.3.698 Ho spita .3.084190 084.8 l .8 2021-10-16 2021-10-16 Travel 1.2.840.1 1.2.349.040 4578 476210 Methodi 00:00:00 00:00:[address] 3.430.2.7 0.2.7.3.698 Ho spita .3.409934 084.8 l .8 2021-10-15 2021-10-15 Telephone Mian, 1.2.840.1 [id number] 88737372 Methodi 00:00:00 00:00:[address] 3.430.2.7 Hospit a .3.204251 l .8 2021-10-15 2021-10-15 Telephone Mian 1.2.840.1 [id number] 10471137 Methodi 00:00:00 00:00:[address] 3.430.2.7 Hospit a .3.974347 l .8 2021-07-31 2021-07-31 Outpatient R [facility] 345 [id number] Univers 14:57:54 23:59:00 WALT Bird [facility] 2021-07-31 2021-07-31 [facility] 1.2.840.114 9 [id number] Univers 14:57:54 23:59:00 Encounter Walt bird 350.1.13.10 ity of [place] 4.2.7.2.686 [facility] [phone] [facility] [address] 2021-07-31 2021-07-31 Orders Doctor LUPIS 1.2.840.114 [id number] Univers 00:00:00 00:00:00 Only Unassigned, MARGI 350.1.13.10 ity of [place] [facility] 4.2.7.2.686 [place] as [phone] [facility] [address] [place] 2021-07-24 2021-07-24 Outpatient R [facility] 633 [id number] Univers 00:00:00 00:00:00 WALT Bird hector [facility] 2021-06-11 2021-06-11 [facility] 1.2.840.114 9 [id number] Univers 08:57:52 23:59:00 Encounter eWalt 350.1.13.10 ity of [place] 4.2.7.2.686 [facility] [id number] [place] [address] [place] 2021-06-11 2021-06-11 Outpatient R [facility] 682 [id number] Univers 08:52:48 08:56:00 WALT Bird hector [facility] 2021-06-11 2021-06-11 [facility] 1.2.840.114 9 [id number] Univers 08:52:48 08:56:00 Encounter Walt bird 350.1.13.10 ity of [place] 4.2.7.2.686 [facility] [phone] [facility] [address] 2021-06-11 2021-06-11 Orders Doctor LUPIS 1.2.840.114 [id number] Univers 00:00:00 00:00:00 Only Unassigned, MARGI 350.1.13.10 ity of [place] [facility] 4.2.7.2.686 [place] as [phone] [facility] [address] [place] 2021-04-08 2021-04-08 Transition BAMBI Ovalle 1.2.840.114 916 44179 Univers 00:00:00 00:00:00 of Care Carroll WETZEL 350.1.13.10 ity of [place] 4.2.7.2.686 [facility] [phone] [facility] [address] 2021-04-06 2021-04-07 Outpatient X ROWAN [facility] МАРИЯ [id number] 9869 Univers 18:17:00 18:00:00 [facility] 2021-04-06 2021-04-07 Emergency BradshawMarta merino [facility] 1.2.840 .114 [id number] Univers 18:17:00 18:00:00 Remy Donahue 350.1.13.10 ity of [place] 4.2.7.2.686 [facility] [phone] [facility] [address] 2020-04-02 2020-04-02 (TEL) STLMLC STLMLC [id number] Co mmon 00:00:00 00:00:00 [facility] 2020-04-01 2020-04-01 (TEL) STLC STLMLC [id number] Co mmon 00:00:00 00:00:00 [facility] 2019-09-04 2019-09-04 Out[facility] [id number] Common 15:45:00 15:45:00 t Specialty/U Sp evangelina Specialty rology - [facility]rology Clinic [facility] 2019-07-20 2019-07-20 Outpatient Haja NORIEGA [facility] [id number] Univers 09:30:00 09:30:00 [facility] 2019-04-27 2019-04-27 [facility] 30 [id number] Common 09:30:00 09:30:00 t Specialty/U Sp evangelina Specialty rology - [facility]Urology Clinic [facility] 2019-04-27 2019-04-27 Orders Doctor BAUGH 1.2.840.114 [id number] Univers 00:00:00 00:00:00 Only Unassigned, MAGRI 350.1.13.10 ity of [place] [facility] 4.2.7.2.686 [place] [id number] [address] 2019-04-27 2019-04-27 Orders Doctor LUPIS 1.2.840.114 [id number] 50 00:00:00 00:00:00 Only Unassigned, MARGI 350.1.13.10 [place] [facility] 4.2.7.2.686 [id number] [facility] 2019-04-21 2019-04-21 Telephone [facility] 1.2.374.833 1784 9996 Univers 00:00:00 00:00:00 Ewelina SPECIALTY 350.1.13.10 [place] [phone] Ma jaiden [address]IC[address] 2019-04-21 2019-04-21 [facility] 1.2.881.735 1705 9996 00:00:00 00:00:00 Ewelina SPECIALTY 350.1.13.10 CARE 4.2.7.2.686 CENTER AT [phone] [address] 2019-04-20 2019-04-20 Office [facility] 1.2.840.114 [id number] Univers 08:05:41 09:17:43 Visit Ewelina SPECIALTY 350.1.13.10 [place] [phone] Ma jaiden ALVES [address] [place] [address] 2019-04-20 2019-04-20 Office [facility] 1.2.840.114 [id number] 08:05:41 09:17:43 Visit Ewelina SPECIALTY 350.1.13.10 CARE 4.2.7.2.686 CENTER AT [id number] [address] 2019-04-20 2019-04-20 Outpatient R [facility] [id number] Univers 08:30:00 08:30:00 EWELINA ity of [facility] 2019-03-27 2019-03-27 Office [facility] 1.2.840.114 [id number] Univers 07:51:12 09:06:35 Visit Magalys N SPECIALTY 350.1.13.10 [place] [id number] Ma dicjose DICKEYY 098 [facility] 2019-03-27 2019-03-27 Orders Doctor BAUGH 1.2.840.114 [id number] Univers 00:00:00 00:00:00 Only Unassigned, MARGI 350.1.13.10 ity of [place] [facility] 4.2.7.2.686 [place] [id number] [facility] [address] [place] 2019-03-27 2019-03-27 Orders Doctor LUPIS 1.2.840.114 [id number] 00:00:00 00:00:00 Only Unassigned, MARGI 350.1.13.10 [place] [facility] 4.2.7.2.686 [id number] [facility] 2019-03-03 2019-03-07 Nurse Nurse, s [facility] 1.2.840.114 [id number] Univers 09:52:51 08:19:09 Visit Magalys Leos SPECIALTY 350.1.1 3.10 [place] [phone] Ma yaimaar JOSELYN 8 [facility] 2019-03-07 2019-03-07 Telephone Jimmy You [facility] 1.2.840.114 [id number] [id number] Univers 00:00:00 00:00:00 Leon SPECIALTY 350.1.13.10 [place] [phone] [address] 2019-03-07 2019-03-07 Transition Bambi Rodriguez 1.2.840.114 [id number] [id number] Univers 00:00:00 00:00:00 of Care Elywendy Wetzel 350.1.13.10 it [place] [phone] [facility] [address] [place] 2019-03-03 2019-03-06 Hospital Eliza Bowie [facility] 1.2.840.11 4 [id number] Univers 19:31:34 14:20:00 Encounter Franky Dalal 350.1.13.10 [place] [id number] [facility] [address] [place] 2019-03-03 2019-03-03 Nurse Saw BAUGH 1.2.840.114 [id number] Univers 00:00:00 00:00:00 Triage d Jodee Casillas MARGI 350.1.13.10 ity of HOSPITAL 4.2.7.2.686 [place] [phone] [facility] [address] [place] 2019-03-03 2019-03-03 Orders Doctor BAUGH 1.2.840.114 [id number] Univers 00:00:00 00:00:00 Only Unassigned, MARGI 350.1.13.10 ity of [place] [facility] 4.2.7.2.686 [place] [phone] [facility] [address] [place] 2019-03-03 2019-03-03 Telephone [facility] 1.2.127.644 [id number] 0336 Univers 00:00:00 00:00:00 Ewelina SPECIALTY 350.1.13.10 [place] [phone] [facility] 098 [facility] 2018-10-27 2018-10-27 Transition Bambi Mcpherson 1.2.840.114 [id number] [id number] Univers 00:00:00 00:00:00 of Care Nadeen Wetzel 350.1.13.10 [place] [id number] [facility] [address] [place] 2018-10-26 2018-10-26 [facility] 1.2.840.114 [id number] Univers 11:07:00 17:32:00 Encounter [facility] 350.1.13.10 [place] [facility] [phone] [facility] 049 [facility] 2018-10-26 2018-10-26 Anesthesia [facility] 1.2.840.114 [id number] Univers 13:43:00 15:35:00 Juliette SPECIALTY 350.1.13.10 it[place] [phone] Ma jaiden DICKEY 020 [facility] 2018-10-26 2018-10-26 Orders Doctor LUPIS 1.2.840.114 [id number] Univers 00:00:00 00:00:00 Only Unassigned, MARGI 350.1.13.10 ity of [place] [facility] 4.2.7.2.686 [place] [phone] [facility] [address] [place] 2018-09-27 2018-09-27 Legal Office Administrator 1, Adc Lab [facility] 1.2.840.114 [id number] Univers 10:17:02 10:32:02 Visit Ewelina Noriega 350.1.13.10 [place] [phone] [facility] [address] [place] 2018-09-27 2018-09-27 Orders Doctor LUPIS 1.2.840.114 [id number] Univers 00:00:00 00:00:00 Only Unassigned, MARGI 350.1.13.10 ity of [place] [facility] 4.2.7.2.686 [place] [phone] [address] 2018-09-16 2018-09-16 [facility] 1.2.840.114 [id number] 762 Univers 00:00:00 00:00:00 Management Magalys Braga SPECIALTY 350.1.13.10 [place] [phone] [address] 2018-09-15 2018-09-15 [facility] 1.2.840.114 [id number] Univers 15:16:59 16:30:59 Visit Ewelina SPECIALTY 350.1.13.10 [place] [phone] [place] [address] 2018-09-01 2018-09-01 Telephone Theodora Rowland 1.2.840.114 [id number] [facility] 00:00:00 00:00:00 H 350.1.13.10 it y of BUILDING 4.2.7.2.686 [place] as [phone] [address] Results Test Description Test Time Test Comments Results Result Comments Source MAGNESIUM 2022-04-23 18:45:19 Test Item Value Reference Range Interpretation Comme nts MAGNESIUM (test code = 5305083171) 1.9 mg/dL 1.7-2.4 Lab Interpretation (test code = 84966-9) Normal [id number] 17:41:09 Test Item Value Reference Range Interpretation Comments TROPONIN I (test code = 0.006 ng/mL <=0.034 7079978741) ADDIS (test code = ADDIS) Reference (Normal) [...] biotin. Lab Interpretation Normal (test code = 18514-8) [facility] (39373)2022-04-23 17:30:27 Test Item Value Reference Range Interpretation Comments NA (test code = 140 mmol/L 135-145 5407262357) K (test code = 4.4 mmol/L 3.5-5.0 8149111502) CL (test code = 104 mmol/L 98-108 1404280220) CO2 TOTAL (test code = 27 mmol/L 23-31 3383490914) AGAP (test code = 9 2-16 5600292783) BUN (test code = 19 mg/dL 7-23 7889773148) GLUCOSE (test code = 91 mg/dL 70-110 9345396285) CREATININE (test code = 0.73 mg/dL 0.50-1.04 3433405392) TOTAL BILI (test code = 0.8 mg/dL 0.1-1.7 6101432719) CALCIUM (test code = 8.5 mg/dL 8.6-10.6 L 6527940204) T PROTEIN (test code = 6.7 g/dL 6.3-8.2 9876332121) ALBUMIN (test code = 4.2 g/dL 3.5-5.0 4618355116) ALK PHOS (test code = 65 U/L 34-122 1720236719) ALTv (test code = 22 U/L 5-35 2-6) AST(SGOT) (test code = 30 U/L 13-40 5651686963) eGFR (test code = 76.7 mL/min/1.73m2 1182298417) ADDIS (test code = ADDIS) Association of [...] tests). Lab Interpretation Abnormal (test code = 66633-7) [facility] 17:30:11 Test Item Value Reference Range Interpretation Comments LIPASE (test code = 4450751251) 206 U/L 0-220 Lab Interpretation (test code = Normal 42981-4) [facility] WITH [id number] 17:23:27 Test Item Value Reference Range Interpretation Comments WBC (test code = 8.99 See_Comment [Automated 6690-2) message] The sy stem [...] RDW-SD (test code = 41.3 fL 39.0-49.9 67926-2) RDW-CV (test code = 13.3 % 12.0-15.5 788-0) PLT (test code = 63 See_Comment L [Automated 777-3) message] The sy stem which generated this result transmitted reference range : 166 - 358 10*3/ ?L. The reference r neetu was not used to interpret this result as normal/abnormal . MPV (test code = 12.5 fL 9.5-12.9 57564-1) NRBC/100 WBC (test 0.0 See_Comment [Automat ed code = 9326168813) message] The system which generated this result transmitted reference range : 0.0 - 10.0 /100 WBCs. The refer ence range was not u sed to interpret th is result as normal/abnormal . NRBC x10^3 (test code See_Comment [Auto mated = 3907628347) message] The s ystem which generated this result transmitted reference range : 10*3/?L. The reference range was not used to interpret this result as normal/abnormal . GRAN MAT (NEUT) % 63.7 % (test code = 770-8) IMM GRAN % (test code 0.80 % = 7945320344) LYMPH % (test code = 27.1 % 736-9) MONO % (test code = 6.8 % 5905-5) EOS % (test code = 1.0 % 713-8) BASO % (test code = 0.6 % 706-2) GRAN MAT x10^3(ANC) 5.73 10*3/uL 1.88-7.09 (test code = 0861652096) IMM GRAN x10^3 (test 0.07 10*3/uL 0.00-0.06 H code = 4459715368) LYMPH x10^3 (test code 2.44 10*3/uL 1.32-3.29 = 731-0) MONO x10^3 (test code 0.61 10*3/uL 0.33-0.92 = 742-7) EOS x10^3 (test code = 0.09 10*3/uL 0.03-0.39 711-2) BASO x10^3 (test code 0.05 10*3/uL 0.01-0.07 = 704-7) Lab Interpretation Abnormal (test code = 10289-1) [facility] [id number] 01:22:03 Test Item Value Reference Range Interpretation Comments Case number (test code = [id number]) Surgical pathology See link below for report (test code = PDF Lab Report 2255) Result status (test code This is Final Report = [id number]) for [id number] pathology [id number] 01:22:03 Test Item Value Reference Range Interpretation Comments Case number (test code = [id number]) Surgical pathology See link below for report (test code = PDF Lab Report 2255) Result status (test code This is Final Report = [id number]) for [id number] pathology [id number] 01:22:03 Test Item Value Reference Range Interpretation Comments Case number (test code = [id number]) Surgical pathology See link below for report (test code = PDF Lab Report 2255) Result status (test code This is Final Report = [id number]) for [id number] pathology [id number] 01:22:03 Test Item Value Reference Range Interpretation Comments Case number (test code = [id number]) Surgical pathology See link below for report (test code = PDF Lab Report 2255) Result status (test code This is Final Report = [id number]) for [id number] [place], [place] [address]urgical pathology [id number] 01:22:03 Test Item Value Reference Range Interpretation Comments Case number (test code = [id number]) Surgical pathology See link below for report (test code = PDF Lab Report 2255) Result status (test code This is Final Report = [id number]) for [id number] [place] [address] pathology [id number] 01:22:03 Test Item Value Reference Range Interpretation Comments Case number (test code = [id number]) Surgical pathology See link below for report (test code = PDF Lab Report 2255) Result status (test code This is Final Report = [id number]) for [id number] [place], [place] [address]Transthoracic echo (TTE)2021-04-07 22:32:30 Test Item Value Reference Range Interpretation Comments LVOT diameter (test code 2.01 cm = 5255577767) LVIDD (test code = 4.00 cm 5744867597) IVS (test code = 1.28 cm 1667965967) Interventricular Septum 1.28 cm Diastolic Thickness by 2D (test code = 8276579) LVPWD (test code = 1.28 cm 6443951478) PW (test code = 1.28 cm 0.6-1.6 5644961658) EF(Teich) (test code = 56.90 % 8973893376) LVIDS (test code = 2.80 cm 8200691302) FS (test code = 29 % 3380812071) EF - 2D (test code = 56.90 % 85298545) LA size (test code = 4.4 cm 4103287262) Ao root annulus (test 3.2 cm code = 8687597115) Ao root diam (test code = 3.20 cm 7323869237) Aortic root (test code = 3.2 cm 7384759226) TR Peak Javier (test code = 255.4 cm/s 6131213670) Triscuspid Valve mmHg Regurgitation Peak Gradient (test code = 9941853613) Pulmonic Regurgitant End 113.0 cm/s Max Velocity (test code = 7692858157) LAV(MOD-sp4) (test code = 59.60 mL 6275179143) E wave decelartion time 0.25 s (test code = 0452508040) MV stenosis pressure 1/2 74.6 ms time (test code = 2365260365) MV Peak E Javier (test code 90.2 cm/s = 9203162442) MV Peak A Javier (test code 111.0 cm/s = 8716815878) E/A ratio (test code = ratio 0914501079) MR max PG (test code = 78.40 mm[Hg] 5931657457) MR max javier (test code = 442.60 cm/s 0886019992) Mr max javier (test code = 442.6 m/s 1773163047) MV Prop V (test code = 32.70 cm/s 3653083877) MV E/e' septal (test code 8.5 cm/s = 9157166209) Tapse (test code = 1.76 cm 0029355769) LVOT stroke volume (test 72.80 cm3 code = 9496548745) LVOT peak javier (test code 107.6 cm/s = 9171158712) LVOT mn grad (test code = mmHg 4558144316) AV LVOT peak gradient mmHg (test code = 7231150427) LVOT peak VTI (test code 23.1 cm = 0052870723) LV V1 mean (test code = 71.40 cm/s 2629249921) Aortic valve mean 100.6 cm/s velocity (test code = 0886725547) Ao peak javier (test code = 132.3 cm/s 8922289082) Ao VTI (test code = 31.1 cm 6477353399) AV area by cont VTI (test 2.3 cm2 code = 2587824149) AV area peak javier (test 2.6 cm2 code = 4745035852) Ao max PG (test code = 7.00 mm[Hg] 9001055320) AV peak gradient (test mmHg code = 9910493703) AV valve area (test code 2.34 cm2 = 6903321981) AV mean gradient (test mmHg code = 5404791078) LA volume (BP) (test code 55.7 mL = 4183152966) LAV(MOD-sp2) (test code = 41.50 mL 7166238362) Radiology Study observation (narrative) (test code = 00470-6) ADDIS (test code = ADDIS) ?Left?Ventricle: Left [...] (98 kg) 2.13 sq meters 128/50 69 [facility] (27610)(TOTAL CHOLESTEROL, TRIGLYCERIDES, HDL)2021-04-07 13:07:05 Test Item Value Reference Range Interpretation Comments CHOL (test code = 107 mg/dL 120-200 L 4923629779) HDL (test code = 43 mg/dL >50 L 8129327884) HDLC RATIO (test code = See_Comment [Au tomated message] 8991735397) The system [employer] generated this result transmit theodora reference range : <=4.5. The refe rence range was not u sed to interpret th is result as normal/abnormal . TRIG (test code = 97 mg/dL 30-170 1547606723) LDL CHOL (test code = 45 mg/dL See_Comment [Auto mated message] 69806-4) The system [employer] generated this result transmit theodora reference range : <=160. The refe rence range was not u sed to interpret th is result as normal/abnormal . VLDL (test code = 19 mg/dL 5-60 4167793313) Lab Interpretation (test Abnormal code = 15949-4) [facility] CenterLISETN [id number] 12:56:02 Test Item Value Reference Interpretation Comments Range TROPONIN I (test <0.012 See_Comment [Automated code = 1884007072) message] The system which generated this result [...] biotin. Lab Interpretation Normal (test code = 18289-4) [facility] (NA, K, CL, CO2, GLUCOSE, BUN, CREATININE, CA)2021-04-07 12:55:16 Test Item Value Reference Range Interpretation Comments NA (test code = 140 mmol/L 135-145 8674069093) K (test code = 3.8 mmol/L 3.5-5.0 8377958987) CL (test code = 107 mmol/L 98-108 5949406703) CO2 TOTAL (test code = 27 mmol/L 23-31 8898578977) AGAP (test code = 2-16 2009192626) BUN (test code = 15 mg/dL 7-23 0201354569) GLUCOSE (test code = 91 mg/dL 70-110 7527287433) CREATININE (test code = 0.68 mg/dL 0.50-1.04 1410098909) CALCIUM (test code = 8.3 mg/dL 8.6-10.6 L 5934517534) eGFR (test code = mL/min/1.73m2 8714711741) ADDIS (test code = ADDIS) Association of [...] tests). Lab Interpretation Abnormal (test code = 34363-5) [facility] with Ypfdriyxvatq5402-77-61 12:29:38 Test Item Value Reference Range Interpretation Comments WBC (test code = See_Comment [Automated 0739-2) message] The sy stem which generated this result transmitted reference range : 4.30 - 11.10 10*3/?L. The reference range was not used to interpret this result as normal/abnormal . RBC (test code = See_Comment [Automated 584-0) message] The sy stem which generated this [...] RDW-SD (test code = 39.7 fL 39.0-49.9 60063-0) RDW-CV (test code = 12.8 % 12.0-15.5 788-0) PLT (test code = See_Comment L [Automated 777-3) message] The sy stem which generated this result transmitted reference range : 166 - 358 10*3/ ?L. The reference r neetu was not used to interpret this result as normal/abnormal . MPV (test code = 12.4 fL 9.5-12.9 94472-4) IPF % (test code = 8.5 % 1.3-7.7 H Platelet count 5217906651) measured by fluorescence method. NRBC/100 WBC (test See_Comment [Automat ed code = 4086855361) message] The system which generated this result transmitted reference range : 0.0 - 10.0 /100 WBCs. The refer ence range was not u sed to interpret th is result as normal/abnormal . NRBC x10^3 (test code <0.01 See_Comment [Auto mated = 8127511527) message] The s ystem which generated this result transmitted reference range : 10*3/?L. The reference range was not used to interpret this result as normal/abnormal . GRAN MAT (NEUT) % 37.7 % (test code = 770-8) IMM GRAN % (test code 0.30 % = 3857006568) LYMPH % (test code = 46.9 % 736-9) MONO % (test code = 12.6 % 5905-5) EOS % (test code = 2.0 % 713-8) BASO % (test code = 0.5 % 706-2) GRAN MAT x10^3(ANC) 2.45 10*3/uL 1.88-7.09 (test code = 8101214046) IMM GRAN x10^3 (test <0.03 0.00-0.06 code = 3819757497) LYMPH x10^3 (test code 3.05 10*3/uL 1.32-3.29 = 731-0) MONO x10^3 (test code 0.82 10*3/uL 0.33-0.92 = 742-7) EOS x10^3 (test code = 0.13 10*3/uL 0.03-0.39 711-2) BASO x10^3 (test code 0.03 10*3/uL 0.01-0.07 = 704-7) Lab Interpretation Abnormal (test code = 46881-8) [facility] [id number] 06:52:52 Test Item Value Reference Interpretation Comments Range TROPONIN I (test <0.012 See_Comment [Automated code = 6614608971) message] The system which generated this result [...] biotin. Lab Interpretation Normal (test code = 19803-0) [facility] [id number] 01:41:00 Test Item Value Reference Interpretation Comments Range TROPONIN I (test <0.012 See_Comment [Automated code = 0598531535) message] The system which generated this result [...] biotin. Lab Interpretation Normal (test code = 61508-6) [facility] CenterN-TERMINAL [id number] 01:37:40 Test Item Value Reference Range Interpretation Comments NT-proBNP (test code 310 pg/mL See_Comment [Autom ated = 3530721063) message] The system which generated this result transmitted reference range : <=450. The reference range was not used to interpret this result as normal/abnormal . ADDIS (test code = ADDIS) Biotin has been reported to cause a negative bias, interpret results relative to patient's use of biotin. Lab Interpretation Normal (test code = 94273-9) [facility] CenterCOMP. METABOLIC PANEL (00860)2021-04-07 01:29:18 Test Item Value Reference Range Interpretation Comments NA (test code = 140 mmol/L 135-145 8153068664) K (test code = 4.6 mmol/L 3.5-5.0 5457363120) CL (test code = 106 mmol/L 98-108 7028862291) CO2 TOTAL (test code = 23 mmol/L 23-31 2158794507) AGAP (test code = 2-16 0167625011) BUN (test code = 18 mg/dL 7-23 9276317963) GLUCOSE (test code = 129 mg/dL 70-110 H 7147890585) CREATININE (test code = 0.71 mg/dL 0.50-1.04 3901371741) TOTAL BILI (test code = 0.6 mg/dL 0.1-1.8 5560272519) CALCIUM (test code = 8.7 mg/dL 8.6-10.6 8064505048) T PROTEIN (test code = 6.5 g/dL 6.3-8.2 5887918494) ALBUMIN (test code = 4.4 g/dL 3.5-5.0 7269917502) ALK PHOS (test code = 93 U/L 34-122 6993890360) ALTv (test code = 25 U/L 5-35 1742-6) AST(SGOT) (test code = 39 U/L 13-40 3880305151) eGFR (test code = mL/min/1.73m2 9201068085) ADDIS (test code = ADDIS) Association of [...] tests). Lab Interpretation Abnormal (test code = 66851-5) [facility] CenterPROTHROMBIN TIME / [id number] 01:21:57 Test Item Value Reference Range Interpretation Comments PROTIME PATIENT (test See_Comment [Auto mated message] code = 5964-2) The system [employer] generated this result transmitted ref erence range: 12.0 - 1 4.7 Seconds. The re ference range was not u sed to interpret this result as normal/abnor mal. INR (test code = 6301-6) Nor mal INR <1.1; Warfarin Therap eutic range 2.0 to 3. 0 or 2.5 to 3.5, dep ending upon the indica tions. Lab Interpretation (test Normal code = 10328-9) [facility] WITH [id number] 01:17:36 Test Item Value Reference Range Interpretation [...] RDW-SD (test code = 40.0 fL 39.0-49.9 02139-8) RDW-CV (test code = 12.8 % 12.0-15.5 788-0) PLT (test code = See_Comment L [Automated 777-3) message] The sy stem which generated this result transmitted reference range : 166 - 358 10*3/ ?L. The reference r neetu was not used to interpret this result as normal/abnormal . MPV (test code = 11.8 fL 9.5-12.9 14343-6) IPF % (test code = 7.5 % 1.3-7.7 Platelet count 1093720026) measured by fluorescence method. NRBC/100 WBC (test See_Comment [Automat ed code = 9147298538) message] The system which generated this result transmitted reference range : 0.0 - 10.0 /100 WBCs. The refer ence range was not u sed to interpret th is result as normal/abnormal . NRBC x10^3 (test code <0.01 See_Comment [Auto mated = 0205784596) message] The s ystem which generated this result transmitted reference range : 10*3/?L. The reference range was not used to interpret this result as normal/abnormal . GRAN MAT (NEUT) % 45.7 % (test code = 770-8) IMM GRAN % (test code 0.40 % = 5524035779) LYMPH % (test code = 38.1 % 736-9) MONO % (test code = 13.0 % 5905-5) EOS % (test code = 2.1 % 713-8) BASO % (test code = 0.7 % 706-2) GRAN MAT x10^3(ANC) 3.04 10*3/uL 1.88-7.09 (test code = 4748903946) IMM GRAN x10^3 (test 0.03 10*3/uL 0.00-0.06 code = 1929988480) LYMPH x10^3 (test code 2.54 10*3/uL 1.32-3.29 = 731-0) MONO x10^3 (test code 0.87 10*3/uL 0.33-0.92 = 742-7) EOS x10^3 (test code = 0.14 10*3/uL 0.03-0.39 711-2) BASO x10^3 (test code 0.05 10*3/uL 0.01-0.07 = 704-7) Lab Interpretation Abnormal (test code = 44336-7) [facility] WITH [id number] 19:18:00 Test Item Value Reference Range Interpretation Comments WBC (test code = See_Comment [Automated 0490-2) message] The sy stem which generated this result transmitted reference range : 4.30 - 11.10 10*3/?L. The reference range was not used to interpret this result as normal/abnormal . RBC (test code = See_Comment L [Automated 619-8) message] The sy stem which generated this [...] RDW-SD (test code = 46.6 fL 39-49.9 59912-9) RDW-CV (test code = 13.7 % 12-15.5 788-0) PLT (test code = See_Comment L [Automated 777-3) message] The sy stem which generated this result transmitted reference range : 166 - 358 10*3/ ?L. The reference r neetu was not used to interpret this result as normal/abnormal . MPV (test code = 12.8 fL 9.5-12.9 90493-0) IPF % (test code = 7.3 % 1.3-7.7 8466359378) NRBC/100 WBC (test See_Comment [Automat ed code = 8977462321) message] The system which generated this result transmitted reference range : 0.0 - 10.0 /100 WBCs. The refer ence range was not u sed to interpret th is result as normal/abnormal . NRBC x10^3 (test code <0.01 See_Comment [Auto mated = 5180721285) message] The s ystem which generated this result transmitted reference range : 10*3/?L. The reference range was not used to interpret this result as normal/abnormal . GRAN MAT (NEUT) % 49.3 % (test code = 770-8) IMM GRAN % (test code 0.80 % = 2457418028) LYMPH % (test code = 36.8 % 736-9) MONO % (test code = 11.3 % 5905-5) EOS % (test code = 1.2 % 713-8) BASO % (test code = 0.6 % 706-2) GRAN MAT x10^3(ANC) 3.21 10*3/uL 1.88-7.09 (test code = 3658167331) IMM GRAN x10^3 (test 0.05 10*3/uL 0-0.06 code = 8440790562) LYMPH x10^3 (test code 2.40 10*3/uL 1.32-3.29 = 731-0) MONO x10^3 (test code 0.74 10*3/uL 0.33-0.92 = 742-7) EOS x10^3 (test code = 0.08 10*3/uL 0.03-0.39 711-2) BASO x10^3 (test code 0.04 10*3/uL 0.01-0.07 = 704-7) Lab Interpretation Abnormal (test code = 36379-4) [facility] WITH [id number] 16:29:00 Test Item Value Reference Range Interpretation Comments WBC (test code = See_Comment [Automated 7890-2) message] The sy stem which generated this result transmitted reference range : 4.30 - 11.10 10*3/?L. The reference range was not used to interpret this result as normal/abnormal . RBC (test code = See_Comment [Automated 9-8) message] The sy stem which generated this [...] RDW-SD (test code = 40.8 fL 39-49.9 85560-4) RDW-CV (test code = 12.9 % 12-15.5 788-0) PLT (test code = See_Comment L [Automated 777-3) message] The sy stem which generated this result transmitted reference range : 166 - 358 10*3/ ?L. The reference r neetu was not used to interpret this result as normal/abnormal . MPV (test code = 11.5 fL 9.5-12.9 70847-6) IPF % (test code = 5.6 % 1.3-7.7 Platelet count 1842223914) measured by fluorescence method. NRBC/100 WBC (test See_Comment [Automat ed code = 4663621891) message] The system which generated this result transmitted reference range : 0.0 - 10.0 /100 WBCs. The refer ence range was not u sed to interpret th is result as normal/abnormal . NRBC x10^3 (test code <0.01 See_Comment [Auto mated = 2647890699) message] The s ystem which generated this result transmitted reference range : 10*3/?L. The reference range was not used to interpret this result as normal/abnormal . GRAN MAT (NEUT) % 47.5 % (test code = 770-8) IMM GRAN % (test code 0.60 % = 7052010891) LYMPH % (test code = 37.1 % 736-9) MONO % (test code = 12.2 % 5905-5) EOS % (test code = 2.0 % 713-8) BASO % (test code = 0.6 % 706-2) GRAN MAT x10^3(ANC) 2.56 10*3/uL 1.88-7.09 (test code = 2540465879) IMM GRAN x10^3 (test 0.03 10*3/uL 0-0.06 code = 6543623552) LYMPH x10^3 (test code 2.00 10*3/uL 1.32-3.29 = 731-0) MONO x10^3 (test code 0.66 10*3/uL 0.33-0.92 = 742-7) EOS x10^3 (test code = 0.11 10*3/uL 0.03-0.39 711-2) BASO x10^3 (test code 0.03 10*3/uL 0.01-0.07 = 704-7) Lab Interpretation Abnormal (test code = 60953-4) [facility] METABOLIC PANEL (NA, K, CL, CO2, GLUCOSE, BUN, CREATININE, CA)2019-03-06 14:02:00 Test Item Value Reference Range Interpretation Comments NA (test code = 140 mmol/L 135-145 3150490378) K (test code = 3.9 mmol/L 3.5-5 7153375249) CL (test code = 108 mmol/L 98-108 7966591665) CO2 TOTAL (test code = 24 mmol/L 23-31 0350222564) AGAP (test code = 2-16 8708211660) BUN (test code = 12 mg/dL 7-23 9555917121) GLUCOSE (test code = 87 mg/dL 70-110 5891385140) CREATININE (test code = 0.71 mg/dL 0.5-1.04 9161013422) CALCIUM (test code = 8.5 mg/dL 8.6-10.6 L 5808562070) eGFR Calculation mL/min/1.73m2 (Non-) (test code = 7441808095) eGFR Calculation mL/min/1.73m2 () (test code = 1801009191) ADDIS (test code = ADDIS) Association of [...] tests). Lab Interpretation Abnormal (test code = 32286-7) [facility] CenterD-[id number] 22:50:00 Test Item Value Reference Interpretation Comments Range D-DIMER (test code = See_Comment [Autom ated 9654262356) message] The system which generated this result [...] diagnosis. Lab Interpretation Normal (test code = 46902-9) [facility] CenteraPTT2020-01-[facility] 22:42:00 Test Item Value Reference Range Interpretation Comments APTT Patient (test See_Comment [Automat ed code = 3173-2) message] The system which generated this result transmitted reference range : 23 - 38 Seconds . The reference range was not used to interpr et this result as normal/abnormal . ADDIS (test code = ADDIS) The [facility] patient population mean normal value for aPTT is 30 seconds. Lab Interpretation Normal (test code = 07566-6) [facility] CenterFIBRINOGEN2020-01-26 22:42:00 Test Item Value Reference Range Interpretation Comments Fibrinogen (test code = 2424999010) 483 mg/dL 214-470 H Lab Interpretation (test code = Abnormal 91348-5) [facility] CenterPROTHROMBIN TIME / [id number] 22:39:00 Test Item Value Reference Range Interpretation [...] tions. Lab Interpretation (test Normal code = 64558-4) [facility] CenterLACTATE [id number] 22:03:00 Test Item Value Reference Range Interpretation Comments LDH (test code = 8398021077) 447 U/L 300-600 Lab Interpretation (test code = Normal 48243-1) [facility] CenterFERRITIN [id number] 19:57:00 Test Item Value Reference Range Interpretation Comments FERRITIN (test code = 126.0 ng/mL 11-264 3722513299) ADDIS (test code = ADDIS) Biotin has been reported to cause a negative bias, interpret results relative to patient's use of biotin. Lab Interpretation (test Normal code = 63183-2) [facility] CenterCREATINE [id number] 19:20:00 Test Item Value Reference Range Interpretation Comments CK (test code = 6099991005) 43 U/L 33-194 Lab Interpretation (test code = Normal 56278-6) [facility] CenterVITAMIN B12, [id number] 19:10:00 Test Item Value Reference Range Interpretation Comments VIT B12 (test code = 288 pg/mL 240-930 7372181922) ADDIS (test code = ADDIS) Biotin has been reported to cause a positive bias, interpret results relative to patient's use of biotin. Lab Interpretation (test Normal code = 34073-6) [facility] CenterFOLATE2020-01-26 19:10:00 Test Item Value Reference Range Interpretation Comments FOLATE SER (test code = 15.3 ng/mL 3-20 2127045536) Lab Interpretation (test code = Normal 11228-6) [facility] CenterIRON [id number] 18:11:00 Test Item Value Reference Range Interpretation Comments IRON (test code = 0051293208) 35 ug/dL 50-160 L TIBC (test code = 2589212291) 272 ug/dL 250-410 % FE SAT (test code = 5071689873) 13 % 20-50 L Lab Interpretation (test code = Abnormal 02036-8) [facility] WITH [id number] 12:21:00 Test Item Value Reference Range Interpretation [...] RDW-SD (test code = 43.5 fL 39-49.9 47954-1) RDW-CV (test code = 13.1 % 12-15.5 788-0) PLT (test code = See_Comment L [Automated 777-3) message] The sy stem which generated this result transmitted reference range : 166 - 358 10*3/ ?L. The reference r neetu was not used to interpret this result as normal/abnormal . MPV (test code = 11.2 fL 9.5-12.9 19468-5) NRBC/100 WBC (test See_Comment [Automat ed code = 0874190368) message] The system which generated this result transmitted reference range : 0.0 - 10.0 /100 WBCs. The refer ence range was not u sed to interpret th is result as normal/abnormal . NRBC x10^3 (test code <0.01 See_Comment [Auto mated = 9828676978) message] The s ystem which generated this result transmitted reference range : 10*3/?L. The reference range was not used to interpret this result as normal/abnormal . GRAN MAT (NEUT) % 47.6 % (test code = 770-8) IMM GRAN % (test code 0.80 % = 1297075797) LYMPH % (test code = 38.6 % 736-9) MONO % (test code = 11.2 % 5905-5) EOS % (test code = 1.3 % 713-8) BASO % (test code = 0.5 % 706-2) GRAN MAT x10^3(ANC) 2.98 10*3/uL 1.88-7.09 (test code = 6886159470) IMM GRAN x10^3 (test 0.05 10*3/uL 0-0.06 code = 4676288589) LYMPH x10^3 (test code 2.41 10*3/uL 1.32-3.29 = 731-0) MONO x10^3 (test code 0.70 10*3/uL 0.33-0.92 = 742-7) EOS x10^3 (test code = 0.08 10*3/uL 0.03-0.39 711-2) BASO x10^3 (test code 0.03 10*3/uL 0.01-0.07 = 704-7) Lab Interpretation Abnormal (test code = 00874-9) [facility] METABOLIC PANEL (NA, K, CL, CO2, GLUCOSE, BUN, CREATININE, CA)2019-03-05 12:12:00 Test Item Value Reference Range Interpretation Comments NA (test code = 139 mmol/L 135-145 0063387619) K (test code = 3.7 mmol/L 3.5-5 3017164991) CL (test code = 110 mmol/L 98-108 H 8542676489) CO2 TOTAL (test code = 24 mmol/L 23-31 6624301900) AGAP (test code = 2-16 2484739989) BUN (test code = 13 mg/dL 7-23 4624365976) GLUCOSE (test code = 95 mg/dL 70-110 9437098720) CREATININE (test code = 0.74 mg/dL 0.5-1.04 0772152071) CALCIUM (test code = 7.9 mg/dL 8.6-10.6 L 5393369708) eGFR Calculation mL/min/1.73m2 (Non-) (test code = 1471689180) eGFR Calculation mL/min/1.73m2 () (test code = 5180935957) ADDIS (test code = ADDIS) Association of [...] tests). Lab Interpretation Abnormal (test code = 00638-6) [facility] [id number] 02:31:00 Test Item Value Reference Range Interpretation Comments FREE T3 (test code = 3199672617) 1.89 pg/mL 2.77-5.27 L Lab Interpretation (test code = Abnormal 88561-9) [facility] [id number] 01:16:00 Test Item Value Reference Range Interpretation Comments FREE T4 (test code = See_Comment [Autom ated message] 2070794618) The system [employer] generated this result transmitted ref erence range: 0.78 - 2 .20 ng/dL:. The ref erence range was not u sed to interpret this result as normal/abnor mal. Lab Interpretation (test Normal code = 38110-9) [facility] CenterTHYROID STIMULATING [id number] 23:31:00 Test Item Value Reference Range Interpretation Comments TSH (test code = See_Comment H Biotin has been 5956492228) reported to cau se a negative bias, interpret resul ts relative to juan sotomayorbeulah's use of biotin. [Automated mess age] The system [employer] generated this result transmitted ref erence range: 0.45 - 4 .70 mIU/L. The refe rence range was not u sed to interpret this result as normal/abnor mal. Lab Interpretation (test Abnormal code = 00410-0) [facility] CenterPROCALCITONIN2020-01-25 17:19:00 Test Item Value Reference Range Interpretation Comments Procalcitonin (test 0.17 ng/mL <0.07 H code = 5964052883) ADDIS (test code = ADDIS) INTERPRETATION OF [...] lung abscess/empyema. For further information please refer to:[email or web address] Lab Interpretation Abnormal (test code = 22071-5) [facility] CenterBASI METABOLIC PANEL (NA, K, CL, CO2, GLUCOSE, BUN, CREATININE, CA)2019-03-04 13:36:00 Test Item Value Reference Range Interpretation Comments NA (test code = 141 mmol/L 135-145 7625970450) K (test code = 4.1 mmol/L 3.5-5 1058923695) CL (test code = 106 mmol/L 98-108 0607432126) CO2 TOTAL (test code = 23 mmol/L 23-31 7101909566) AGAP (test code = 2-16 2403653147) BUN (test code = 20 mg/dL 7-23 9546901613) GLUCOSE (test code = 90 mg/dL 70-110 7655261098) CREATININE (test code = 0.77 mg/dL 0.5-1.04 9757236367) CALCIUM (test code = 8.5 mg/dL 8.6-10.6 L 8509047104) eGFR Calculation mL/min/1.73m2 (Non-) (test code = 5020010923) eGFR Calculation mL/min/1.73m2 () (test code = 4673319835) ADDIS (test code = ADDIS) Association of [...] tests). Lab Interpretation Abnormal (test code = 51510-0) [facility] WITH [id number] 12:33:00 Test Item Value Reference Range Interpretation Comments WBC (test code = See_Comment [Automated 9290-2) message] The sy stem which generated this [...] RDW-SD (test code = 43.0 fL 39-49.9 27059-3) RDW-CV (test code = 13.2 % 12-15.5 788-0) PLT (test code = See_Comment L [Automated 777-3) message] The sy stem which generated this result transmitted reference range : 166 - 358 10*3/ ?L. The reference r neetu was not used to interpret this result as normal/abnormal . MPV (test code = 11.7 fL 9.5-12.9 30221-8) NRBC/100 WBC (test See_Comment [Automat ed code = 0095231105) message] The system which generated this result transmitted reference range : 0.0 - 10.0 /100 WBCs. The refer ence range was not u sed to interpret th is result as normal/abnormal . NRBC x10^3 (test code <0.01 See_Comment [Auto mated = 6983228102) message] The s ystem which generated this result transmitted reference range : 10*3/?L. The reference range was not used to interpret this result as normal/abnormal . GRAN MAT (NEUT) % 69.5 % (test code = 770-8) IMM GRAN % (test code 0.40 % = 1460477376) LYMPH % (test code = 21.1 % 736-9) MONO % (test code = 8.3 % 5905-5) EOS % (test code = 0.4 % 713-8) BASO % (test code = 0.3 % 706-2) GRAN MAT x10^3(ANC) 6.40 10*3/uL 1.88-7.09 (test code = 4372611476) IMM GRAN x10^3 (test 0.04 10*3/uL 0-0.06 code = 7503721279) LYMPH x10^3 (test code 1.95 10*3/uL 1.32-3.29 = 731-0) MONO x10^3 (test code 0.77 10*3/uL 0.33-0.92 = 742-7) EOS x10^3 (test code = 0.04 10*3/uL 0.03-0.39 711-2) BASO x10^3 (test code 0.03 10*3/uL 0.01-0.07 = 704-7) Lab Interpretation Abnormal (test code = 35326-1) [facility] [id number] 08:05:49 1. No acute inflammatory or obstructive process.2. Sigmoid diverticulosis.3. Status post hysterectomy and cholecystectomy.4. Small hiatal hernia RL: [id number] AFC: [id number] End of report Electronically signedby Nasim Newton [...] - 03/04/2019 2:06 AM CSTORDERING CLINICIAN: FRANKY MONTANO: Multidetector helical scanning of the abdomen and [...] hysterectomy and cholecystectomy.4. Small hiatal herniaRL: 3901AFC: 50552Ahn of report [facility]70163[facility] (ALB,T.PRO,BILI T,BU/BC,ALT,AST,ALK PHOS)2019-03-04 06:58:00 Test Item Value Reference Range Interpretation Comments TOTAL BILI (test code = 3360482655) 1.4 mg/dL 0.1-1.1 H BILI UNCON (test code = 0747151440) 1.0 mg/dL 0.1-1.1 BILI CONJ (test code = 7371377490) 0.0 mg/dL 0-0.3 T PROTEIN (test code = 5726797646) 8.0 g/dL 6.3-8.2 ALBUMIN (test code = 9631768672) 4.5 g/dL 3.5-5 ALK PHOS (test code = 2587131707) 71 U/L 34-122 ALTv (test code = 1742-6) 37 U/L 5-35 H AST(SGOT) (test code = 3023258581) 91 U/L 13-40 H Lab Interpretation (test code = Abnormal 34031-9) [facility] 06:57:00 Test Item Value Reference Range Interpretation Comments MAGNESIUM (test code = 6431146553) 1.8 mg/dL 1.7-2.4 Lab Interpretation (test code = Normal 23040-2) [facility] OR [facility] ONLY - INFLUENZA A & B DIRECT [id number] 03:21:00 Test Item Value Reference Range Interpretation Comments Influenza A (test code = 07620-4) Negative Negative Influenza B (test code = 00142-6) Negative Negative Lab Interpretation (test code = Normal 83954-7) [facility] WITH [id number] 03:19:00 Test Item Value Reference Range Interpretation Comments WBC (test code = See_Comment [Automated 1690-2) message] The system which generated this result transmit theodora reference range : 4.30 - 11.10 10*3/?L. The reference range was not used to interpret this result as normal/abnormal . RBC (test code = See_Comment [Automated 382-8) message] The system which generated this result [...] RDW-SD (test code = 40.7 fL 39-49.9 24933-9) RDW-CV (test code = 13.1 % 12-15.5 788-0) PLT (test code = See_Comment L [Automated 777-3) message] The system which generated this result transmit theodora reference range : 166 - 358 10*3/ ?L. The reference range was not u sed to interpret th is result as normal/abnormal . MPV (test code = 11.5 fL 9.5-12.9 69925-4) IPF % (test code = 6.2 % 1.3-7.7 Platelet count 4778815555) measured by fluorescence method. NRBC/100 WBC (test See_Comment [Automat ed code = 9298521978) message] The system which generated this result transmit theodora reference range : 0.0 - 10.0 /100 WBCs. The reference range was not used to interpret this result as normal/abnormal . NRBC x10^3 (test code <0.01 See_Comment [Auto mated = 3213808605) message] The system which generated this result transmit theodora reference range : 10*3/?L. The reference range was not used to interpret this result as normal/abnormal . GRAN MAT (NEUT) % 78.1 % (test code = 770-8) IMM GRAN % (test code 0.40 % = 6574003556) LYMPH % (test code = 12.1 % 736-9) MONO % (test code = 9.0 % 5905-5) EOS % (test code = 0.0 % 713-8) BASO % (test code = 0.4 % 706-2) GRAN MAT x10^3(ANC) 8.03 10*3/uL 1.88-7.09 H (test code = 5002740410) IMM GRAN x10^3 (test 0.04 10*3/uL 0-0.06 code = 6087466731) LYMPH x10^3 (test 1.24 10*3/uL 1.32-3.29 L code = 731-0) MONO x10^3 (test code 0.93 10*3/uL 0.33-0.92 H = 742-7) EOS x10^3 (test code <0.03 0.03-0.39 L = 711-2) BASO x10^3 (test code 0.04 10*3/uL 0.01-0.07 = 704-7) ADDIS (test code = ADDIS) Decreased platelets Lab Interpretation Abnormal (test code = 32881-8) [facility] CenterXR CHEST 1 [id number] 02:43:09Mild atelectasis or infiltrate in both medial [...] REPORTElectronically signedby Theodora Celestin at 03/03/2019 8:51 PMUnJoint venture between [facility] and [facility] ResourcesBasic Metabolic Panel (NA, K, CL, CO2, GLUCOSE, BUN, CREATININE, CA)2019-03-04 02:38:00 Test Item Value Reference Range Interpretation Comments NA (test code = 136 mmol/L 135-145 8560433216) K (test code = 4.5 mmol/L 3.5-5 9747344017) CL (test code = 101 mmol/L 98-108 3499339467) CO2 TOTAL (test code = 26 mmol/L 23-31 4530398685) AGAP (test code = 2-16 4358674113) BUN (test code = 26 mg/dL 7-23 H 5842262529) GLUCOSE (test code = 138 mg/dL 70-110 H 3012789435) CREATININE (test code = 0.91 mg/dL 0.5-1.04 2245027939) CALCIUM (test code = 9.5 mg/dL 8.6-10.6 0111343446) eGFR Calculation mL/min/1.73m2 (Non-) (test code = 1004114224) eGFR Calculation mL/min/1.73m2 () (test code = 7064912647) ADDIS (test code = ADDIS) Association of [...] tests). Lab Interpretation Abnormal (test code = 85736-2) [facility] CenterLactic Acid Whole [id number] 02:17:00 Test Item Value Reference Range Interpretation Comments LACTIC ACID (test code = 1.21 mmol/L 0.5-2.2 9276035459) Lab Interpretation (test code = Normal 68804-6) [facility] CenterURIN[facility]IS2020-01-24 21:05:00 Test Item Value Reference Range Interpretation Comments APPEARANCE (test code = Hazy Clear A 3733633853) COLOR (test code = Sabina Yellow A 5333643688) PH (test code = 4.8-8.0 3197804298) SP GRAVITY (test code = 1.003-1.030 8090078099) GLU U QUAL (test code = Normal Normal 5758500828) BLOOD (test code = 1+ Negative A 9612280741) KETONES (test code = Negative Negative 0532930531) PROTEIN (test code = Negative Negative 2887-8) UROBILIN (test code = Normal Normal 3840291414) BILIRUBIN (test code = Negative Negative 7964256921) NITRITE (test code = Positive Negative A 5984656438) LEUK EMPERATRIZ (test code = 250/uL Negative A 0113781879) RBC/HPF (test code = See_Comment [Autom ated message] 0693220115) The system [employer] generated this result transmitted ref erence range: 0 - 3 HP F. The reference range was not used to int erpret this result as normal/abnormal . WBC/HPF (test code = See_Comment H [Autom ated message] 6901796270) The system [employer] generated this result transmitted ref erence range: 0 - 5 HP F. The reference range was not used to int erpret this result as normal/abnormal . BACTERIA (test code = Few Negative A 1110217089) SQ EPITH (test code = <1 See_Comment [Auto mated message] 4686933625) The system [employer] generated this result transmitted ref erence range: <=2 HPF. The reference range was not used to int erpret this result as normal/abnormal . Lab Interpretation (test Abnormal code = 65998-7) [facility]2020-01-24 21:05:00 Test Item Value Reference Range Interpretation Comments APPEARANCE (test code = Hazy Clear A 2969341538) COLOR (test code = Sabina Yellow A 0760667241) PH (test code = 4.8-8.0 3194445033) SP GRAVITY (test code = 1.003-1.030 9103556563) GLU U QUAL (test code = Normal Normal 2555056088) BLOOD (test code = 1+ Negative A 5123239860) KETONES (test code = Negative Negative 2474873877) PROTEIN (test code = Negative Negative 2887-8) UROBILIN (test code = Normal Normal 6448193731) BILIRUBIN (test code = Negative Negative 1667754348) NITRITE (test code = Positive Negative A 8829570443) LEUK EMPERATRIZ (test code = 250/uL Negative A 5588789720) RBC/HPF (test code = See_Comment [Autom ated message] 0160333140) The system [employer] generated this result transmitted ref erence range: 0 - 3 HP F. The reference range was not used to int erpret this result as normal/abnormal . WBC/HPF (test code = See_Comment H [Autom ated message] 2131641387) The system [employer] generated this result transmitted ref erence range: 0 - 5 HP F. The reference range was not used to int erpret this result as normal/abnormal . BACTERIA (test code = Few Negative A 3542136311) SQ EPITH (test code = <1 See_Comment [Auto mated message] 5213891169) The system [employer] generated this result transmitted ref erence range: <=2 HPF. The reference range was not used to int erpret this result as normal/abnormal . Lab Interpretation (test Abnormal code = 06461-5) [facility]. METABOLIC PANEL (29247)2018-09-27 16:33:00 Test Item Value Reference Range Interpretation Comments NA (test code = 142 mmol/L 135-145 5250990499) K (test code = 4.4 mmol/L 3.5-5 6164428131) CL (test code = 108 mmol/L 98-108 5188475869) CO2 TOTAL (test code = 25 mmol/L 23-31 7995421454) AGAP (test code = 2-16 9872028234) BUN (test code = 18 mg/dL 7-23 9922493450) GLUCOSE (test code = 87 mg/dL 70-110 9953024485) CREATININE (test code 0.73 mg/dL 0.5-1.04 = 8807975045) TOTAL BILI (test code 0.5 mg/dL 0.1-1.1 = 0016064510) CALCIUM (test code = 9.4 mg/dL 8.6-10.6 3367358569) T PROTEIN (test code = 7.0 g/dL 6.3-8.2 5148897248) ALBUMIN (test code = 4.4 g/dL 3.5-5 0826878340) ALK PHOS (test code = 71 U/L 34-122 8873409937) ALT(SGPT) (test code = 24 U/L 9-51 8995742274) AST(SGOT) (test code = 21 U/L 13-40 4987717762) eGFR Calculation mL/min/1.73m2 (Non-) (test code = 3796312819) eGFR Calculation mL/min/1.73m2 () (test code = 5073364733) ADDIS (test code = ADDIS) Association of [...] or urine or abnormalities in imaging tests). [facility] WITH [id number] 15:38:00 Test Item Value Reference Range Interpretation Comments WBC (test code = See_Comment [Automated message] 6690-2) The system [employer] generated this result transmitted ref erence range: 4.30 - 1 1.10 10*3/?L. The re ference range was not u sed to interpret this result as normal/abnor mal. RBC (test code = See_Comment [Automated message] 789-8) The system [employer] generated this result transmitted ref erence range: [...] RDW-SD (test code 41.8 fL 39-49.9 = 74812-5) RDW-CV (test code 13.2 % 12-15.5 = 788-0) PLT (test code = See_Comment [Automated message] 777-3) The system [employer] generated this result transmitted ref erence range: 166 - 35 8 10*3/?L. The re ference range was not u sed to interpret this result as normal/abnor mal. MPV (test code = 10.8 fL 9.5-12.9 48304-0) NRBC/100 WBC (test See_Comment [Automat ed message] code = 5608047862) The syste m which generated this result transmitted ref erence range: 0.0 - 10 .0 /100 WBCs. The refer ence range was not u sed to interpret this result as normal/abnor mal. NRBC x10^3 (test <0.01 See_Comment [Automated message] code = 3470171673) The syste m which generated this result transmitted ref erence range: 10*3/?L. The reference range was not used to interpr et this result as normal/abnormal . GRAN MAT (NEUT) % 42.3 % (test code = 770-8) IMM GRAN % (test 0.60 % code = 6644395511) LYMPH % (test code 43.3 % = 736-9) MONO % (test code 11.2 % = 5905-5) EOS % (test code = 2.0 % 713-8) BASO % (test code 0.6 % = 706-2) GRAN MAT 2.30 10*3/uL 1.88-7.09 x10^3(ANC) (test code = 2408090383) IMM GRAN x10^3 0.03 10*3/uL 0-0.06 (test code = 0524964290) LYMPH x10^3 (test 2.35 10*3/uL 1.32-3.29 code = 731-0) MONO x10^3 (test 0.61 10*3/uL 0.33-0.92 code = 742-7) EOS x10^3 (test 0.11 10*3/uL 0.03-0.39 code = 711-2) BASO x10^3 (test 0.03 10*3/uL 0.01-0.07 code = 704-7) [facility]
--- NOTE | 2022-08-13 10:39 | RAD REPORT ---
EXAM DESCRIPTION: CT - Head Brain Wo Cont - 08/13/2022 10:28 am CLINICAL HISTORY: DIZZINESS Headache, drowsiness, vomiting and dizziness COMPARISON: Head Brain Wo Cont dated 06/14/2022; Head Brain Wo Cont dated 01/30/2020 TECHNIQUE: All CT scans are performed using dose optimization technique as appropriate and may inclu de automated exposure control or mA/KV adjustment according to patient size. FINDINGS: No intracranial hemorrhage, hydrocephalus or extra-axial fluid collection.Mild generalized brain atrophy is present.No areas of brain edema or evidence of midline shift. The paranasal sinuses and mastoids are clear. The calvarium is intact. IMPRESSION: No acute intracranial abnormality.
[2022-08-13] MEDS ORDERED: ONDANSETRON 4 MG/2 ML VIAL ONE (10:53)
[2022-08-13] MEDS ORDERED: CEFTRIAXONE 1000 MG/VIAL ONE (10:53)
[2022-08-13] MEDS ORDERED: NA CHLORIDE 0.9% 1,000 ML ONE (10:53)
[2022-08-13 10:57] LABS: Absolute Lymphocytes (CBC) 2.2 K/uL (0.7-4.9); Hematocrit 40.1 % (36.0-45.0); Lymphocytes % 34.5 % (15.3-44.8); MCV 86.3 fL (80-100); MPV 9.3 fL (7.6-11.3); RBC Red Blood Cell Count 4.64 M/uL (3.86-4.86)
[2022-08-13 11:00] LABS: Protime INR 0.95
[2022-08-13 11:24] LABS: Albumin 3.8 g/dL (3.4-5.0); Bilirubin Direct 0.2 mg/dL (0-0.2); Bilirubin Indirect, Calculated 0.4 mg/dL (0.2-0.8); Bilirubin Total 0.6 mg/dL (0.2-1.0); Magnesium 2.2 mg/dL (1.6-2.4); Potassium 3.7 mEq/L (3.5-5.1); Protein, Total 6.9 g/dL (6.4-8.2); Troponin High Sensitivity 6.8 pg/mL (<58.9)
[2022-08-13 11:29] LABS: Specific Gravity 1.024 (1.005-1.030); Transitional Epithelial <5 /HPF (None Seen); Urine Bacteria <20 /HPF (<20); Urine Bilirubin NEGATIVE (Negative); Urine Blood Negative (Negative); Urine Clarity Clear (Clear); Urine Color Yellow (Yellow); Urine Glucose NEGATIVE (Negative); Urine Mucus Slight /HPF (None Seen); Urine Protein NEGATIVE (Negative); Urine RBC <5 /HPF (None Seen); Urine Urobilinogen Normal (Normal); Urine pH 6.5 (5.0-7.0)
--- NOTE | 2022-08-13 11:52 | RAD REPORT ---
EXAM DESCRIPTION: RAD - Chest Single View - 08/13/2022 11:36 am CLINICAL HISTORY: COUGH Chest pain. COMPARISON: Chest Single View dated 07/01/2022; Chest Single View dated 06/25/2022; Chest Single View dated 05/02/2022; Chest Single View dated 01/30/2020 FINDINGS: Portable technique limits examination quality. Mild interstitial pulmonary edema suspected. The heart is moderately enlarged. No displaced fractures .Aortic atherosclerosis. IMPRESSION: Mild CHF.
--- NOTE | 2022-08-13 14:28 | EDPHYS ---
Physician Documentation [facility] Name: Ruthie Smith Age: 81 yrs Sex: Female : 1940 Arrival Date: 08/13/2022 Time: 10:11 Bed 8 Private MD: Zeyad Gramajo C ED Physician Grey Amaral HPI: 08/13 14:21 This 81 yrs old Female presents to ER via Ambulatory with complaints of michael Dizziness, Nausea/Vomiting, General Weakness. Historical: - Allergies: 10:58 Azithromycin; ld1 10:58 Codeine; ld1 10:58 Levofloxacin; ld1 10:58 Vicodin; ld1 - PMHx: 10:58 COPD; Hypertension; sepsis-uro; urinary; Thyroid problem; UTI; ld1 - Immunization history:: Adult Immunizations up to date. - Social history:: Smoking status: Patient denies any tobacco usage or history of. Patient/guardian denies using alcohol. ROS: 14:22 Constitutional: Negative for fever, chills, and weight loss, Eyes: Negative for injury, michael pain, redness, and discharge, ENT: Negative for injury, pain, and discharge, Neck: Negative for injury, pain, and swelling, Cardiovascular: Negative for chest pain, palpitations, and edema, Respiratory: Negative for shortness of breath, cough, wheezing, and pleuritic chest pain, Back: Negative for injury and pain, : Negative for injury, bleeding, discharge, and swelling, MS/Extremity: Negative for injury and deformity, Skin: Negative for injury, rash, and discoloration, Neuro: Negative for headache, weakness, numbness, tingling, and seizure, Psych: Negative for depression, anxiety, suicide ideation, homicidal ideation, and hallucinations, Allergy/Immunology: Negative for hives, rash, and allergies, Endocrine: Negative for neck swelling, polydipsia, polyuria, polyphagia, and marked weight changes, Hematologic/Lymphatic: Negative for swollen nodes, abnormal bleeding, and unusual bruising. 14:22 Abdomen/GI: Positive for nausea, vomiting. Exam: 14:22 Constitutional: This is a well developed, well nourished patient who is awake, alert, michael and in no acute distress. Head/Face: Normocephalic, atraumatic. Eyes: Pupils equal round and reactive to light, extra-ocular motions intact. Lids and lashes normal. Conjunctiva and sclera are non-icteric and not injected. Cornea within normal limits. Periorbital areas with no swelling, redness, or edema. ENT: Nares patent. No nasal discharge, no septal abnormalities noted. Tympanic membranes are normal and external auditory canals are clear. Oropharynx with no redness, swelling, or masses, exudates, or evidence of obstruction, uvula midline. Mucous membranes moist. Neck: Trachea midline, no thyromegaly or masses palpated, and no cervical lymphadenopathy. Supple, full range of motion without nuchal rigidity, or vertebral point tenderness. No Meningismus. Chest/axilla: Normal chest wall appearance and motion. Nontender with no deformity. No lesions are appreciated. Cardiovascular: Regular rate and rhythm with a normal S1 and S2. No gallops, murmurs, or rubs. Normal PMI, no JVD. No pulse deficits. Respiratory: Lungs have equal breath sounds bilaterally, clear to auscultation and percussion. No rales, rhonchi or wheezes noted. No increased work of breathing, no retractions or nasal flaring. Abdomen/GI: Soft, non-tender, with normal bowel sounds. No distension or tympany. No guarding or rebound. No evidence of tenderness throughout. Back: No spinal tenderness. No costovertebral tenderness. Full range of motion. Female : Normal external genitalia. Skin: Warm, dry with normal turgor. Normal color with no rashes, no lesions, and no evidence of cellulitis. MS/ Extremity: Pulses equal, no cyanosis. Neurovascular intact. Full, normal range of motion. Neuro: Awake and alert, GCS 15, oriented to person, place, time, and situation. Cranial nerves II-XII grossly intact. Motor strength 5/5 in all extremities. Sensory grossly intact. Cerebellar exam normal. Normal gait. Psych: Awake, alert, with orientation to person, place and time. Behavior, mood, and affect are within normal limits. Vital Signs: 10:58 Pulse 67; Resp 18; Temp 98.7(O); Pulse Ox 93% on R/A; Weight 86.18 kg; Height 5 ft. 3 ld1 in. ; Pain 0/10; 12:03 BP 88 / 60; Pulse 66; Resp 18; Pulse Ox 100% on R/A; ld1 14:17 BP 102 / 59; Pulse 76; Resp 18; Pulse Ox 98% on R/A; ld1 15:00 BP 129 / 78; Pulse 61; Resp 16; Pulse Ox 100% on R/A; cm10 10:58 Body Mass Index 33.66 (86.18 kg, 160.02 cm) ld1 10:58 Pain Scale: Adult ld1 MDM: 10:16 Patient medically screened. [facility] 14:23 Data reviewed: vital signs, nurses notes, lab test result(s), EKG, radiologic studies. [facility] Consideration of Admission/Observation Escalation of care including admission/observation considered. Management of patient was discussed with the following: Primary Care Provider: DR GRAMAJO. I considered the following discharge prescriptions or medication management in the emergency department Medications were administered in the Emergency Department. See MAR. Test considered but Not performed: CT: NO CT ABD/PELVIS. Care significantly affected by the following chronic conditions: Hypertension, Chronic Obstructive Pulmonary Disease, Obesity, UTI. Counseling: I had a detailed discussion with the patient and/or guardian regarding: the historical points, exam findings, and any diagnostic results supporting the discharge/admit diagnosis, lab results, radiology results, the need for outpatient follow up. 08/13 10:18 Order name: Basic Metabolic Panel; Complete Time: 14:16 [facility] 08/13 10:18 Order name: CBC with Diff; Complete Time: 14:16 [facility] 08/13 10:18 Order name: LFT's; Complete Time: 14:16 [facility] 08/13 10:18 Order name: Magnesium; Complete Time: 14:16 [facility] 08/13 10:18 Order name: NT PRO-BNP; Complete Time: 14:16 [facility] 08/13 10:18 Order name: PT-INR; Complete Time: 14:16 [facility] 08/13 10:18 Order name: Troponin HS; Complete Time: 14:16 [facility] 08/13 10:18 Order name: Lipase; Complete Time: 14:16 [facility] 08/13 10:18 Order name: Urinalysis w/ reflexes; Complete Time: 14:16 [facility] 08/13 10:18 Order name: Blood Culture Adult (2) [facility] 08/13 10:18 Order name: Lactate w/ 2H reflex if indic.; Complete Time: 14:16 [facility] 08/13 10:18 Order name: XRAY Chest (1 view); Complete Time: 14:16 [facility] 08/13 10:18 Order name: CT Head Brain wo Cont; Complete Time: 14:16 [facility] 08/13 10:18 Order name: EKG; Complete Time: 10:19 [facility] 08/13 10:18 Order name: Cardiac monitoring; Complete Time: 10:40 [facility] 08/13 10:18 Order name: EKG - Nurse/Tech; Complete Time: 10:40 [facility] 08/13 10:18 Order name: IV Saline Lock; Complete Time: 10:40 [facility] 08/13 10:18 Order name: Labs collected and sent; Complete Time: 10:40 [facility] 08/13 10:18 Order name: O2 Per Protocol; Complete Time: 10:40 [facility] 08/13 10:18 Order name: O2 Sat Monitoring; Complete Time: 10:40 [facility] Administered Medications: 10:57 Drug: NS 0.9% IV 1000 ml Route: IV; Rate: 1 bolus; Site: right antecubital; ld1 10:57 Drug: Rocephin IV 1 grams Route: IV; Rate: per protocol; Site: right antecubital; ld1 10:58 Drug: Ondansetron IVP 4 mg Route: IVP; Site: right antecubital; ld1 Disposition Summary: 08/13/22 14:28 Discharge Ordered Location: Home [facility] Problem: new [facility] Symptoms: have improved michael Condition: Stable michael Diagnosis - Nausea michael - Vomiting michael - Weakness michael - UTI/ Urinary tract infection, site not specified michael Followup: michael - With: Zeyad Gramajo MD - When: 1 - 2 days - Reason: Recheck today's complaints, Continuance of care, Re-evaluation by your physician Discharge Instructions: - Discharge Summary Sheet michael - Nausea and Vomiting, Adult michael - Weakness michael - Nausea and Vomiting, Adult, Ppcf-cm-Rrns michael - Urinary Tract Infection, Adult, Zppc-dj-Zwnm michael - Weakness, Bnnl-rl-Ykca michael - Nausea, Adult, Bghy-mc-Dvag michael - Vomiting, Adult [facility] Forms: - Medication Reconciliation Form [facility] - Thank You Letter [facility] - Antibiotic Education michael - Prescription Opioid Use [facility] - [email or web address] [facility] Prescriptions: - Pepcid 20 mg Oral Tablet - take 1 tablet by ORAL route every 12 hours for 21 days; 42 tablet; Refills: 0, michael Product Selection Permitted - Zofran 4 mg Oral Tablet - take 1 tablet by ORAL route every 8 hours As needed; 20 tablet; Refills: 0, [facility] Product Selection Permitted - Macrobid 100 mg Oral Capsule - take 1 capsule by ORAL route every 12 hours for 7 days; 14 capsule; Refills: 0, [facility] Product Selection Permitted Signatures: Dispatcher [employer] Grey Ramírez MD MD cha Sims, Lauren RN RN ld1
--- NOTE | 2022-08-13 14:28 | ER ---
Nurse's Notes [facility] Name: Ruthie Smith Age: 81 yrs Sex: Female : 1940 Arrival Date: 08/13/2022 Time: 10:11 Bed 8 Private MD: Zeyad Ma C Diagnosis: Nausea;Vomiting;Weakness;UTI/ Urinary tract infection, site not specified Presentation: 08/13 10:58 Chief complaint: Patient states: Dizziness, weakness since yesterday evening. pt ld1 reports taking osteoarthritis medication on empty stomach. C/O nausea. Coronavirus screen: At this time, the client does not indicate any symptoms associated with coronavirus-19. Ebola Screen: No symptoms or risks identified at this time. Initial Sepsis Screen: Does the patient meet any 2 criteria? No. Patient's initial sepsis screen is negative. Does the patient have a suspected source of infection? No. Patient's initial sepsis screen is negative. Risk Assessment: Do you want to hurt yourself or someone else? Patient reports no desire to harm self or others. Onset of symptoms was August 13, 2022. 10:58 Method Of Arrival: Ambulatory ld1 10:58 Acuity: TOLU 3 ld1 Triage Assessment: 10:58 General: Appears in no apparent distress. comfortable, Behavior is calm, cooperative, ld1 appropriate for age. Pain: Denies pain. EENT: No signs and/or symptoms were reported regarding the EENT system. Neuro: Level of Consciousness is awake, alert, obeys commands, Oriented to person, place, time, situation. Cardiovascular: Capillary refill < 3 seconds Patient's skin is warm and dry. Respiratory: Airway is patent Respiratory effort is even, unlabored. GI: Abdomen is round non-distended. GI: Reports nausea. : No signs and/or symptoms were reported regarding the genitourinary system. Derm: No signs and/or symptoms reported regarding the dermatologic system. Musculoskeletal: No signs and/or symptoms reported regarding the musculoskeletal system. Historical: - Allergies: 10:58 Azithromycin; ld1 10:58 Codeine; ld1 10:58 Levofloxacin; ld1 10:58 Vicodin; ld1 - PMHx: 10:58 COPD; Hypertension; sepsis-uro; urinary; Thyroid problem; UTI; ld1 - Immunization history:: Adult Immunizations up to date. - Social history:: Smoking status: Patient denies any tobacco usage or history of. Patient/guardian denies using alcohol. Screenin:00 [facility] ED Fall Risk Assessment (Adult) History of falling in the last 3 months, ld1 including since admission No falls in past 3 months (0 pts). Abuse screen: Denies threats or abuse. Denies injuries from another. Nutritional screening: No deficits noted. Tuberculosis screening: No symptoms or risk factors identified. Assessment: 10:24 Reassessment: Pt to CT at this time VIA wheelchair. ss 11:00 Reassessment: See triage assessment. ld1 13:27 Reassessment: Patient appears in no apparent distress at this time. No changes from ld1 previously documented assessment. Patient and/or family updated on plan of care and expected duration. Pain level reassessed. 15:42 Reassessment: Patient appears in no apparent distress at this time. No changes from ld1 previously documented assessment. Patient and/or family updated on plan of care and expected duration. Pain level reassessed. Patient is alert, oriented x 3, equal unlabored respirations, skin warm/dry/pink. Vital Signs: 10:58 Pulse 67; Resp 18; Temp 98.7(O); Pulse Ox 93% on R/A; Weight 86.18 kg; Height 5 ft. 3 ld1 in. ; Pain 0/10; 12:03 BP 88 / 60; Pulse 66; Resp 18; Pulse Ox 100% on R/A; ld1 14:17 BP 102 / 59; Pulse 76; Resp 18; Pulse Ox 98% on R/A; ld1 15:00 BP 129 / 78; Pulse 61; Resp 16; Pulse Ox 100% on R/A; cm10 10:58 Body Mass Index 33.66 (86.18 kg, 160.02 cm) ld1 10:58 Pain Scale: Adult ld1 ED Course: 10:15 Patient arrived in ED. am2 10:15 Zeyad Ma MD is Private Physician. am2 10:16 Grey Amaral MD is Attending Physician. michael 10:24 Luz Deal, MARIO is Primary Nurse. ko1 10:28 CT Head Brain wo Cont In Process Unspecified. EDMS 10:55 Urinalysis w/ reflexes Sent. sm8 10:58 Arm band placed on right wrist. ld1 10:59 Triage completed. ld1 11:00 No provider procedures requiring assistance completed. Inserted saline lock: 20 gauge ld1 in right antecubital area, using aseptic technique. 11:00 Patient has correct armband on for positive identification. Placed in gown. Bed in low ld1 position. Call light in reach. Side rails up X2. monitor and storage bin tender on. Pulse ox on. NIBP on. Door closed. Noise minimized. Warm blanket given. 11:38 XRAY Chest (1 view) In Process Unspecified. EDMS 14:27 Zeyad Ma MD is Referral Physician. michael 15:42 IV discontinued, intact, bleeding controlled, No redness/swelling at site. ld1 Administered Medications: 10:57 Drug: NS 0.9% IV 1000 ml Route: IV; Rate: 1 bolus; Site: right antecubital; ld1 10:57 Drug: Rocephin IV 1 grams Route: IV; Rate: per protocol; Site: right antecubital; ld1 10:58 Drug: Ondansetron IVP 4 mg Route: IVP; Site: right antecubital; ld1 Medication: 11:00 VIS not applicable for this client. ld1 Outcome: 14:28 Discharge ordered by . [facility] 15:42 Discharged to home ambulatory, with family. ld1 15:42 Condition: stable 15:42 Discharge instructions given to patient, family, Instructed on discharge instructions, follow up and referral plans. Demonstrated understanding of instructions, follow-up care. 15:42 Patient left the ED. ld1 Signatures: Dispatcher [employer] EDSD Grey Amaral MD MD cha Blanchard, Shelby RN Farrah Artis Lauren, RN RN ld1 Luz Deal RN RN haley1 Valerie Pappas RN RN cm10 Ashley Patel 8
[2022-08-13 16:02] VITALS: TEMP 98.7
[2022-08-13 16:08] VITALS: BP 129/78; O2SAT 100
--- NOTE | 2022-08-15 16:25 | EKG ---
Test Date: 2022-08-13 Test Time: 10:36:48 [employer] Mdm Developer: Mayte SI MEASUREMENT RESULTS: Intervals: Rate: 69 MN: 164 QRSD: 86 QT: 422 QTc: 452 Saxon: P: 44 MN: 164 QRS: -34 T: 8 INTERPRETIVE STATEMENTS: Normal sinus rhythm Left axis deviation Anterolateral infarct, age undetermined Abnormal ECG Compared to ECG 07/01/2022 12:40:38 No significant changes Electronically Signed On 08-15-22 16:20:56 CDT by Kwan Lee
== END 2022-08-13 15:42 | disposition home or self-care (01) ==
LOC: ER 10:11
DX: N39.0 Urinary tract infection, site not specified (principal); R53.1 Weakness; J44.9 Chronic obstructive pulmonary disease, unspecified; Z88.1 Allergy status to other antibiotic agents; Z88.3 Allergy status to other anti-infective agents; Z88.5 Allergy status to narcotic agent
CPT/HCPCS: 93005; 87040 ×2; 85025; 81001; 80048; 36415; 83735; 85610; 80076; 83605; 84484; 83690; 83880; 70450; 71045; 96375; 96374; 99285; J2405; J7030; J0696

== ENCOUNTER 2024-01-18 22:04 | Inpatient (IN) | payer OTHER ==
[2024-01-18] MEDS ORDERED: ACETAMINOPHEN 500 MG TAB ONE (23:06)
[2024-01-18] MEDS ORDERED: NA CHLORIDE 0.9% 1,000 ML ONE (23:57)
[2024-01-18] MEDS ORDERED: ONDANSETRON 4 MG/2 ML VIAL ONE (23:57)
[2024-01-19 00:03] LABS: Absolute Basophils 0.1 K/uL (0-0.5); Absolute Lymphocytes (CBC) 1.7 K/uL (0.7-4.9); Absolute Monocytes 1.4 K/uL (0.1-1.3); Absolute Neutrophil 9.3 K/uL (1.8-8.0); Basophils % 0.5 % (0-1.3); Hematocrit 41.1 % (36.0-45.0); Hemoglobin 13.2 g/dL (12.0-15.0); Lymphocytes % 13.3 % (15.3-44.8); MCH 28.2 pg (27.0-35.0); MCHC 32.2 g/dL (32.0-36.0); MCV 87.6 fL (80-100); MPV 9.6 fL (7.6-11.3); Monocytes % 11.4 % (3.3-12.3); Neutrophils % 74.8 % (41.7-73.7); Platelets 157 thou/uL (152-406); Red Cell Distribution Width 14.2 % (12.1-15.2)
[2024-01-19 00:09] LABS: Specific Gravity 1.024 (1.005-1.030); Sqamous Epithelial 20-50 /HPF (None Seen); Urine Bacteria 20-50 /HPF (<20); Urine Bilirubin NEGATIVE (Negative); Urine Blood Negative (Negative); Urine Clarity Extremely Turbid (Clear); Urine Color Yellow (Yellow); Urine Culture Reflex Order NOT NEEDED; Urine Glucose NEGATIVE (Negative); Urine Ketones 1+ (Negative); Urine Microscopic Reflex YN ORDER UMIC; Urine Mucus 2+ /HPF (None Seen); Urine Nitrite NEGATIVE (Negative); Urine Protein 1+ (Negative); Urine Urobilinogen 2+ (Normal); Urine WBC 20-50 /HPF (<5)
[2024-01-19 00:33] LABS: Albumin 3.8 g/dL (3.4-5.0); Anion Gap 9.5 mEq/L (5.0-15.0); Bilirubin Total 1.2 mg/dL (0.2-1.0); Globulin 3.9 g/dL (2.3-3.5); Protein, Total 7.7 g/dL (6.4-8.2)
[2024-01-19 00:35] LABS: Potassium 4.5 mEq/L (3.5-5.1)
[2024-01-19 00:44] LABS: SARS-CoV-2 Antigen CONTROL BLUE LINE VIS/BG OK; SARS-CoV-2 Antigen Rapid Res Negative (Negative)
[2024-01-19 00:57] LABS: PTT, Activated Partial Thromb 29.6 SECONDS (24.3-36.9); Protime INR 1.07
--- NOTE | 2024-01-19 02:27 | RAD REPORT ---
EXAM: CT Abdomen and Pelvis With Intravenous Contrast CLINICAL HISTORY: Abd pain. TECHNIQUE: Axial computed tomography images of the abdomen and pelvis with intravenous contrast. Sagittal and coronal reformatted images were created and reviewed. This CT exam was performed using one or more of the following dose reduction techniques: automated exposure control, adjustment of the mA a nd/or kV according to patient size, and/or use of iterative reconstruction technique. COMPARISON: CT Abdomen Pelvis 06/25/2022. FINDINGS: Lung bases: Patchy consolidative changes within the left lower lobe. Bibasilar subsegmental atelect asis/pleural parenchymal scar. Heart: The heart is mildly enlarged. Coronary artery and mitral annular calcification. Mediastinum: Small to moderate hiatal hernia. ABDOMEN: Liver: Scattered hepatic cysts, the largest on the left measuring 3.3 cm (previously 2.8 cm). Gallbladder and bile ducts: Prior cholecystectomy. Biliary dilatation similar to the prior. The com mon duct measures 16 mm in maximum diameter. Pancreas: Unremarkable. No mass. No ductal dilation. Spleen: Unremarkable. No splenomegaly. Adrenals: Unremarkable. No mass. Kidneys and ureters: Lobulated renal contour. Normal renal cortical enhancement. No calculi. No hyd ronephrosis. Stomach and bowel: Duodenal diverticula. Colonic diverticula without adjacent inflammatory change . No obstruction. No mucosal thickening. PELVIS: Appendix: The appendix is not definitively visualized. No findings to suggest acute appendicitis. Bladder: Unremarkable. No mass. Reproductive: There has been a hysterectomy. No adnexal cysts or masses are identified. ABDOMEN and PELVIS: Intraperitoneal space: Unremarkable. No free air. No significant fluid collection. Bones/joints: Multilevel spondylosis. 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 No acute fracture. No dislocation. Soft tissues: Tiny fat-containing umbilical hernia. Vasculature: Moderate to severe atherosclerotic disease. 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 No abdominal aortic aneurysm. Lymph nodes: Unremarkable. No enlarged lymph nodes. IMPRESSION: 1. No acute process identified within the abdomen and pelvis. 2. Left lower lobe infiltrate. 3. Other findings as above. Electronically signed by: Castro Greene MD 01/19/2024 02:24 AM [facility] Due to temporary technical issues with the [employer] reporting system, reports are being devon d by the in-house radiologist without review as a courtesy to ensure prompt reporting the interpreting radiologist is fully responsible for the content of the report. Transcribed Date/Time: 01/19/2024 2:27 AM
[2024-01-19 02:39] LABS: Renal Epithelial <5 /HPF (None Seen); Specific Gravity 1.023 (1.005-1.030); Sqamous Epithelial <5 /HPF (None Seen); Urine Bacteria <20 /HPF (<20); Urine Bilirubin NEGATIVE (Negative); Urine Blood Negative (Negative); Urine Clarity Clear (Clear); Urine Color Light-Yellow (Yellow); Urine Culture Reflex Order NOT NEEDED; Urine Glucose NEGATIVE (Negative); Urine Ketones TRACE (Negative); Urine Micro Reflex YN NO BILL MICROSCOPIC; Urine Nitrite NEGATIVE (Negative); Urine Protein NEGATIVE (Negative); Urine RBC <5 /HPF (None Seen); Urine Urobilinogen Normal (Normal); Urine WBC <5 /HPF (<5)
--- NOTE | 2024-01-19 02:43 | ER ---
Nurse's Notes [facility] Name: Ruthie Smith Age: 83 yrs Sex: Female : 1940 Arrival Date: 01/18/2024 Time: 22:04 Bed 19 Private MD: Diagnosis: Lobar pneumonia, unspecified organism;Altered mental status, unspecified;Hypoxemia Presentation: 01/17 22:34 Chief complaint: Patient states: C/o of fever. Today temp of 103. C/o nausea, sore cg throat, and left knee pain. Coronavirus screen: Vaccine status: Patient reports receiving the 2nd dose of the covid vaccine. Ebola Screen: Patient negative for fever greater than or equal to 101.5 degrees Fahrenheit, and additional compatible Ebola Virus Disease symptoms. Initial Sepsis Screen: Does the patient meet any 2 criteria? No. Patient's initial sepsis screen is negative. Risk Assessment: Do you want to hurt yourself or someone else? Patient reports no desire to harm self or others. 22:34 Method Of Arrival: Ambulatory cg 22:34 Acuity: TOLU 3 cg 01/18 00:16 Onset of symptoms was January 18, 2024. ha1 02:00 Initial Sepsis Screen: Does the patient have a suspected source of infection? No. ha1 Patient's initial sepsis screen is negative. Historical: - Allergies: 01/17 22:14 Azithromycin; ha1 22:14 Codeine; ha1 22:14 Levofloxacin; ha1 22:14 Vicodin; ha1 - PMHx: 22:14 COPD; Hypertension; sepsis-uro; urinary; Thyroid problem; UTI; ha1 - Immunization history:: Adult Immunizations up to date. - Infectious Disease History:: Denies. - Social history:: Smoking status: unknown. Screenin:14 [facility] ED Fall Risk Assessment (Adult) History of falling in the last 3 months, ha1 including since admission No falls in past 3 months (0 pts) Confusion or Disorientation Yes (5 pts) Intoxicated or Sedated No (0 pts) Impaired Gait No (0 pts) Mobility Assist Device Used Yes (1 pt) Altered Elimination Yes (1 pt) Score/Fall Risk Level 3 or more points = High Risk Oriented to surroundings, Maintained a safe environment, Educated pt \T\ family on fall prevention, incl call for assistance when getting out of bed, Hourly rounding (assess needs \T\ fall precautionary measures) done. Abuse screen: Denies threats or abuse. Denies injuries from another. Nutritional screening: No deficits noted. Tuberculosis screening: No symptoms or risk factors identified. Assessment: 22:14 General: Appears in no apparent distress. comfortable, Behavior is calm, cooperative, aa10 appropriate for age, Smells of Reports fever for 1-2 days. 22:14 Pain: Denies pain. Neuro: No deficits noted. Cardiovascular: No deficits noted. Heart aa10 tones S1 S2 present Capillary refill < 3 seconds Pulses are all present. Respiratory: No deficits noted. Airway is patent. GI: No deficits noted. No signs and/or symptoms were reported involving the gastrointestinal system. Abdomen is flat. : No deficits noted. No signs and/or symptoms were reported regarding the genitourinary system. EENT: No deficits noted. No signs and/or symptoms were reported regarding the EENT system. Derm: No deficits noted. No signs and/or symptoms reported regarding the dermatologic system. 01/18 00:00 Reassessment: Patient and/or family updated on plan of care and expected duration. Pain ha1 level reassessed. Patient is alert, oriented x 3, equal unlabored respirations, skin warm/dry/pink. Patient states feeling better. Patient states symptoms have improved. 01:00 Reassessment: Patient and/or family updated on plan of care and expected duration. Pain ha1 level reassessed. Patient is alert, oriented x 3, equal unlabored respirations, skin warm/dry/pink. Patient states feeling better. Patient states symptoms have improved. 02:00 Reassessment: Patient and/or family updated on plan of care and expected duration. Pain ha1 level reassessed. Patient is alert, oriented x 3, equal unlabored respirations, skin warm/dry/pink. 03:05 Reassessment: Patient's daughter Leyla Zhao cell # [phone]. ha1 03:06 Reassessment: Patient and/or family updated on plan of care and expected duration. Pain ha1 level reassessed. Patient is alert, oriented x 3, equal unlabored respirations, skin warm/dry/pink. 05:10 Reassessment: Patient appears in no apparent distress at this time. Patient and/or kj2 family updated on plan of care and expected duration. Pain level reassessed. Patient is alert, oriented x 3, equal unlabored respirations, skin warm/dry/pink. Vital Signs: 01/17 22:34 BP 144 / 57; Pulse 105; Resp 18; Temp 101; Pulse Ox 97% ; Weight 90.72 kg; Height 5 ft. cg 7 in. ; 22:34 Pain 03/20; cg 01/18 00:00 BP 111 / 47; Pulse 82; Resp 19 S; Temp 99.8; Pulse Ox 94% on R/A; ha1 01:00 BP 122 / 51; Pulse 86; Resp 17 S; Pulse Ox 95% on R/A; ha1 01:55 BP 115 / 50; Pulse 81; Resp 20 S; Pulse Ox 91% on R/A; aa10 03:00 BP 118 / 53; Pulse 79; Resp 18 S; Pulse Ox 94% on R/A; ha1 01/17 22:34 Body Mass Index 31.32 (90.72 kg, 170.18 cm) cg 22:34 Pain Scale: Adult cg ED Course: 01/17 22:06 Patient arrived in ED. jj6 22:07 Marilu Conti PA-C is PHCP. sb4 22:07 Rogelio Nicole MD is Attending Physician. sb4 22:14 Patient has correct armband on for positive identification. Placed in gown. Bed in low ha1 position. Call light in reach. Side rails up X2. Adult w/ patient. 22:38 Triage completed. cg 23:36 Haresh Hall, RN is Primary Nurse. aa10 23:37 Blood Culture Adult (2) Sent. aa10 23:37 CBC with Diff Sent. aa10 23:37 CMP Sent. aa10 23:37 Lactate w/ 2H reflex if indic. Sent. aa10 23:37 Protime (+inr) Sent. aa10 23:37 Ptt, Activated Sent. aa10 23:48 Urinalysis w/ reflexes Sent. aa10 23:48 Flu Sent. aa10 23:48 SARS RAPID Sent. aa10 23:48 Strep Sent. aa10 23:53 Chest Single View XRAY In Process Unspecified. EDMS 01/18 00:31 Blood Culture Adult (2) Sent. aa10 00:31 CMP Sent. aa10 00:31 Lactate w/ 2H reflex if indic. Sent. aa10 00:31 Protime (+inr) Sent. aa10 00:31 Ptt, Activated Sent. aa10 00:32 No provider procedures requiring assistance completed. aa10 00:32 Provided Education on: patient was informed to call for assistance if she needs to come aa10 out of bed, side rails up and call grace placed close to patient, she was placed in position of comfort.. 00:32 Arm band placed on right wrist. ha1 01:18 CT Abd/Pelvis - IV Contrast Only In Process Unspecified. EDMS 01:30 Straight cath inserted, using sterile technique, 12 Fr. Specimen obtained. Returned ha1 clear yellow urine. 02:42 Zeyad Ma MD is Hospitalizing Provider. sb4 03:15 Patient admitted, IV remains in place. ha1 05:10 Report received from MARIO Alegria. kj2 Administered Medications: 01/17 23:10 Drug: Acetaminophen PO 1000 mg PO once Route: PO; ha1 01/18 00:15 Follow up: Response: No adverse reaction; Temperature is decreased ha 00:31 Follow up: Response: No adverse reaction aa10 00:14 Drug: Ondansetron IVP 4 mg IVP once; over 2 minutes Route: IVP; Site: left wrist; ha1 00:32 Follow up: Response: No adverse reaction; Marked relief of symptoms aa10 00:14 Drug: NS 0.9% IV 1000 ml IV at 1000 ml once; to be given as a bolus over 60 minutes ha1 Route: IV; Rate: 1000 ml; Site: left wrist; 03:09 Follow up: IV Status: Completed infusion; IV Intake: 1000ml aa10 02:55 Drug: Doxycycline PO 100 mg PO once Route: PO; aa10 03:20 Follow up: Response: No adverse reaction ha1 02:56 Drug: Rocephin IV 1 grams IV at calculated rate once; Given slow IV push per pharmacy aa10 instructions Route: IV; Rate: calculated rate; Site: left hand; 03:20 Follow up: Response: No adverse reaction; IV Status: Completed infusion; IV Intake: [id number] Medication: 03:11 VIS not applicable for this client. aa10 Intake: 03:09 IV: 1000ml; Total: 1000ml. aa10 03:20 IV: 50ml; Total: 1050ml. ha1 Outcome: 02:42 Decision to Hospitalize by Provider. sb4 03:15 Admitted to ER Hold. Please see [facility] for further documentation. ha1 03:15 Condition: stable 03:15 Instructed on the need for admit, Demonstrated understanding of instructions, 19:50 Patient left the ED. rg5 Signatures: Dispatcher [employer] EDAditi Foy, RN RN cg Sylvie Mccurdyj6 Airam Wolf RN RN ha1 Marilu Conti PAJazmin PA-C sb4 Marck Butcher RN RN rg5 Ale Jorge, RN RN kj2 Haresh Hall RN RN aa10 Corrections: (The following items were deleted from the chart) 03:10 02:57 IV Status: Completed infusion; Infusion continued; IV Intake: 1000ml aa10 aa10
--- NOTE | 2024-01-19 02:43 | EDPHYS ---
Physician Documentation [facility] Name: Ruthie Smith Age: 83 yrs Sex: Female : 1940 Arrival Date: 01/18/2024 Time: 22:04 Bed 19 Private MD: ED Physician Rogelio Nicole HPI: 01/17 23:30 This 83 yrs old Female presents to ER via Ambulatory with complaints of Fever, sb4 Confusion. 23:30 fever and mild confusion x 24 hours. has chronic UTIs, on daily prophylactic Macrobid. sb4 patient reports feeling nauseated and having knee pain. no other reported symptoms- no chest pain, shortness of breath, abdominal pain, diarrhea, or sick contacts. daughter states she has been septic from UTIs in the past and that is what she is concerned about. Historical: - Allergies: 22:14 Azithromycin; ha1 22:14 Codeine; ha1 22:14 Levofloxacin; ha1 22:14 Vicodin; ha1 - PMHx: 22:14 COPD; Hypertension; sepsis-uro; urinary; Thyroid problem; UTI; ha1 - Immunization history:: Adult Immunizations up to date. - Infectious Disease History:: Denies. - Social history:: Smoking status: unknown. ROS: 23:31 Respiratory: Negative for shortness of breath, cough, wheezing, and pleuritic chest sb4 pain, 23:31 Constitutional: Positive for fever, malaise, 23:31 Abdomen/GI: Positive for nausea, 23:31 MS/extremity: Positive for pain, of the bilateral knees, 23:31 All other systems are negative, Exam: 23:31 Head/Face: Normocephalic, atraumatic. Eyes: Extra-ocular motions intact. Periorbital sb4 areas with no swelling, redness, or edema. ENT: Mucous membranes moist. Cardiovascular: Regular rate and rhythm with a normal S1 and S2. Respiratory: No increased work of breathing, no retractions or nasal flaring. Abdomen/GI: Soft, non-tender, no distension. Skin: Warm, dry with normal turgor. Normal color with no rashes, no lesions, and no evidence of cellulitis. 23:31 Constitutional: The patient appears in no acute distress, alert, awake, Vital Signs: 22:34 BP 144 / 57; Pulse 105; Resp 18; Temp 101; Pulse Ox 97% ; Weight 90.72 kg; Height 5 ft. cg 7 in. ; 22:34 Pain 03/20; cg 01/18 00:00 BP 111 / 47; Pulse 82; Resp 19 S; Temp 99.8; Pulse Ox 94% on R/A; ha1 01:00 BP 122 / 51; Pulse 86; Resp 17 S; Pulse Ox 95% on R/A; ha1 01:55 BP 115 / 50; Pulse 81; Resp 20 S; Pulse Ox 91% on R/A; aa10 03:00 BP 118 / 53; Pulse 79; Resp 18 S; Pulse Ox 94% on R/A; ha1 01/17 22:34 Body Mass Index 31.32 (90.72 kg, 170.18 cm) cg 22:34 Pain Scale: Adult cg MDM: 01/17 22:42 Medical Screening Exam initiated sb4 01/18 02:42 Data reviewed: vital signs, nurses notes, lab test result(s), EKG, radiologic studies, sb4 I have discussed the patient's presentation/case with the attending Emergency Department Physician; and as a result, I will admit patient. Consideration of Admission/Observation Patient was admitted/placed on observation. Counseling: I had a detailed discussion with the patient and/or guardian regarding the historical points, exam findings, and any diagnostic results supporting the discharge/admit diagnosis, lab results, radiology results, the need for further work-up and treatment in the hospital. 01/17 22:48 Order name: Blood Culture Adult (2) sb4 01/17 22:48 Order name: CBC with Diff; Complete Time: 00:07 sb4 01/17 22:48 Order name: CMP; Complete Time: 00:39 sb4 01/17 22:48 Order name: Lactate w/ 2H reflex if indic.; Complete Time: 00:34 sb4 01/17 22:48 Order name: Protime (+inr); Complete Time: 00:59 sb4 01/17 22:48 Order name: Ptt, Activated; Complete Time: 00:59 sb4 01/17 22:48 Order name: Urinalysis w/ reflexes; Complete Time: 00:11 sb4 01/17 22:48 Order name: Flu; Complete Time: 00:59 sb4 01/17 22:48 Order name: SARS RAPID; Complete Time: 00:44 sb4 01/17 22:48 Order name: Strep sb4 01/18 00:12 Order name: UAM: recollect, need poultry cleaner sample; Complete Time: 02:41 sb4 01/18 00:44 Order name: Throat Culture EDMS 01/17 22:48 Order name: Chest Single View XRAY sb4 01/18 00:39 Order name: CT Abd/Pelvis - IV Contrast Only sb4 01/17 22:48 Order name: Cardiac monitoring; Complete Time: 23:24 sb4 01/17 22:48 Order name: IV Saline Lock - Large Bore; Complete Time: 23:24 sb4 01/17 22:48 Order name: Labs collected and sent; Complete Time: 23:24 sb4 01/17 22:48 Order name: Vital Signs; Complete Time: 23:24 sb4 01/18 02:41 Order name: Oxygen Per Protocol; Complete Time: 02:45 sb4 Administered Medications: 01/17 23:10 Drug: Acetaminophen PO 1000 mg PO once Route: PO; ha1 01/18 00:15 Follow up: Response: No adverse reaction; Temperature is decreased ha1 00:31 Follow up: Response: No adverse reaction aa10 00:14 Drug: Ondansetron IVP 4 mg IVP once; over 2 minutes Route: IVP; Site: left wrist; ha1 00:32 Follow up: Response: No adverse reaction; Marked relief of symptoms aa10 00:14 Drug: NS 0.9% IV 1000 ml IV at 1000 ml once; to be given as a bolus over 60 minutes ha1 Route: IV; Rate: 1000 ml; Site: left wrist; 03:09 Follow up: IV Status: Completed infusion; IV Intake: 1000ml aa10 02:55 Drug: Doxycycline PO 100 mg PO once Route: PO; aa10 03:20 Follow up: Response: No adverse reaction ha1 02:56 Drug: Rocephin IV 1 grams IV at calculated rate once; Given slow IV push per pharmacy aa10 instructions Route: IV; Rate: calculated rate; Site: left hand; 03:20 Follow up: Response: No adverse reaction; IV Status: Completed infusion; IV Intake: [id number] Disposition Summary: 01/19/24 02:42 Hospitalization Ordered Notes: Hospitalization Status: Observation sb4 Provider: Ma, A sb4 Condition: Fair sb4 Problem: new sb4 Symptoms: are unchanged sb4 Bed/Room Type: Standard sb4 Location: Telemetry/MedSurg (observation)(01/19/24 18:49) bd Room Assignment: 201(01/19/24 18:49) bd Diagnosis - Lobar pneumonia, unspecified organism sb4 - Altered mental status, unspecified sb4 - Hypoxemia sb4 Forms: - Medication Reconciliation Form sb4 - SBAR form sb4 - Leadership Thank You Letter sb4 Addendum: 01/21/2024 18:59 Co-signature as Attending Physician, Rogelio Nicole MD I agree with the assessment s p4 and plan of care. I reviewed the patient's care provided by the Advanced Practice Provider and agree with the diagnosis and treatment plan. Signatures: Dispatcher [employer] EDUT Verito Cha Lacie, RN RN lg3 Airam Wolf, RN RN ha1 Marilu Conti PATereseC PA-C sb4 Rogelio Nicole MD MD sp4 Haresh Hall, RN RN aa10 Corrections: (The following items were deleted from the chart) 01/17 22:49 22:49 BLOOD CULTURE*+BA.LAB.BRZ ordered. EDUT EDMS 22:49 22:49 CBC+H.LAB.BRZ ordered. EDUT EDMS 22:49 22:49 COMPREHENSIVE METABOLIC PANEL+C.LAB.BRZ ordered. EDUT EDMS 22:49 22:49 LACTATE+C.LAB.BRZ ordered. EDUT EDMS 22:49 22:49 PROTIME (+INR)+COAG.LAB.BRZ ordered. EDUT EDMS 22:49 22:49 PTT, ACTIVATED+COAG.LAB.BRZ ordered. EDUT EDMS 22:49 22:49 Urinalysis+U.LAB.BRZ ordered. EDUT EDMS 22:49 22:49 Influenza Screen (A \T\ B)+BA.LAB.BRZ ordered. EDUT EDMS 22:49 22:49 SARS-COV-2 Antigen Rapid+I.LAB.BRZ ordered. EDUT EDMS 22:49 22:49 Group A Streptococcus Rapid Sc+BA.LAB.BRZ ordered. EDUT EDMS 01/18 00:33 12 23:30 fever and mild confusion x 24 hours. has chronic UTIs, on daily sb4 antibiotics. patient reports feeling nauseated and having knee pain. no other reported symptoms- no chest pain, shortness of breath, abdominal pain, diarrhea, or sick contacts. daughter states she has been septic from UTIs in the past and that is what she is concerned about. sb4 01/18 01:00 00:12 Urinalysis W/Microscopic+U.LAB.BRZ ordered. EDMS EDMS 02:45 02:42 Telemetry/MedSurg (observation) sb4 lg3 02:45 02:42 sb4 lg3 18:49 02:45 [facility] ER HOLD lg3 bd 18:49 02:45 ERHOLD- lg3 bd
[2024-01-19] MEDS ORDERED: CEFTRIAXONE 1000 MG/VIAL ONE ×2 (02:48→08:12)
[2024-01-19] MEDS ORDERED: DOXYCYCLINE 100 MG CAP PO ONE ×2 (02:48→08:13)
[2024-01-19] MEDS ORDERED: NA CHLORIDE 0.9% 50 ML ONE ×2 (02:48→08:13)
[2024-01-19 04:53] VITALS: BMI 33.3
[2024-01-19] MEDS: NA CHLORIDE 0.9% 1,000 ML IV SCH (05:04)
[2024-01-19] MEDS ORDERED: NA CHLORIDE 0.9% 1,000 ML ONE ×2 (05:15→15:42)
--- NOTE | 2024-01-19 05:49 | RAD REPORT ---
NDICATION: Fever. PROCEDURE: AP portable CXR upright on 01/18/2024 at 23:23 hours COMPARISON: None. FINDINGS: Heart: Normal size and configuration. Mediastinal Structures: There is atherosclerosis of the thoracic aorta. Lung Xavier: No active disease. Pulmonary Vascularity: Normal. Pleural Space: No active disease. Bony Structures: The bony structures are intact. IMPRESSION: 1. No acute cardiopulmonary disease. 2. Atherosclerosis of the thoracic aorta. Electronically signed by: Daquan Harper MD 01/19/2024 12:20 AM [facility] Due to temporary technical issues with the PACS/Memorop reporting system, reports are being devon d by the in-house radiologist without review as a courtesy to ensure prompt reporting the interpreting radiologist is fully responsible for the content of the report. Transcribed Date/Time: 01/19/2024 5:48 AM
[2024-01-19] MEDS ORDERED: ALBUTEROL 2.5 MG/3 ML NEB SOL NEB PRN (07:20)
[2024-01-19] MEDS: PNEUMOCOCCAL VACCINE 0.5 ML IMVAC ONE (08:00)
[2024-01-19] MEDS ORDERED: predniSONE 10 MG TAB ONE (08:12)
[2024-01-19] MEDS ORDERED: ENOXAPARIN 40 MG/0.4 ML SQ ONE (08:13)
[2024-01-19] MEDS ORDERED: ASPIRIN EC 81 MG TAB PO ONE (08:13)
[2024-01-19] MEDS: DOXYCYCLINE 100 MG CAP PO SCH (09:00)
[2024-01-19] MEDS: ENOXAPARIN 40 MG/0.4 ML SQ SCH (09:00)
[2024-01-19] MEDS: predniSONE 5 MG TAB PO SCH (09:00)
[2024-01-19] MEDS: ASPIRIN EC 81 MG TAB PO SCH (09:00)
[2024-01-19] MEDS: CEFTRIAXONE 1,000 MG in NA CHLORIDE 0.9% 50 ML IVPB SCH (09:00)
[2024-01-19] MEDS: LEVOTHYROXINE SOD 0.112 MG TAB PO SCH (09:00)
[2024-01-19] MEDS: DULERA 100/5 (MOMETASONE/FORMOTEROL) INHALER IH SCH (09:00)
[2024-01-19] MEDS ORDERED: ACETAMINOPHEN 325 MG TABLET ONE (18:16)
[2024-01-19] MEDS: ACETAMINOPHEN 325 MG TABLET PO PRN (18:23)
[2024-01-19] MEDS: AMLODIPINE 5 MG TAB PO SCH (20:53)
[2024-01-19] MEDS: ATORVASTATIN 20 MG TAB PO SCH (20:53)
[2024-01-19] MEDS: MAGNESIUM HYDROXIDE 8% 30 ML PO ONE (22:14)
--- NOTE | 2024-01-20 03:52 | HP ---
Date of Admission: 01/19/2024 Chief Complaint: Cough, congestion, fever. History Of Present Illness: Ms. Smith is a pleasant 83-year-old female patient who lives at home who came to emergency room with 1-day history of cough, chest congestion, coughing up some mucus, and low-grade fever. After she was evaluated in emergency room, she was admitted to the hospital with pneumonia problem. I saw her this morning. She was in the emergency room and her son was with her at bedside. The patient denies any nausea, vomiting. No abdominal pain. Denies any chest pain or shortness of breath. Review of Systems: Constitutional: As mentioned above. Respiratory: As mentioned above. All other systems reviewed and negative. Allergies: AZITHROMYCIN, DETAILS UNKNOWN. LEVAQUIN, CAUSING RASH AND ITCHING. CODEINE, CAUSES PALPITATION. Medications: Amlodipine 5 mg daily in the evening, aspirin 81 mg daily, atorvastatin 20 mg daily, levothyroxine 112 mcg daily, prednisone 5 mg daily, Advair Diskus 1 puff 2 times a day, ibandronate 150 mg once a month, nitrofurantoin 50 mg daily, Gemtesa 75 mg daily, vitamin B12 1 mg daily. Past Medical History: Significant for hypothyroidism, hyperlipidemia, hypertension, COPD, gastroesophageal reflux disease, osteoporosis, peripheral neuropathy, depression, thrombocytopenia, obesity, diverticulosis, impaired fasting glucose, peripheral vascular disease, coronary artery disease, chronic kidney disease stage 3A. Also significant for osteoarthritis at multiple sites. Past Surgical History: Significant for cholecystectomy, hysterectomy, removal of left ovary, bladder suspension. Family History: Father , had myocardial infarction and kidney disease. Mother , had heart disease and pneumonia. Brother had prostate cancer. Sister ; had coronary artery disease, diabetes, and kidney disease. Social History: Prior history of smoking not at present time. Use of alcohol: Rarely uses alcohol. Physical Examination: Vital Signs: Height 5 feet 7 inches, weight 200 pounds. Temperature 101, pulse 105, respiratory rate 18, blood pressure 144/57, oxygen saturation 97%. General: Awake, alert, oriented, not in distress. HEENT: Head atraumatic, normocephalic. Conjunctivae nonerythematous. Sclerae white. Mouth, no thrush or edema noted. Ears/Nose, no mass, lesion, discharge noted. Neck: Supple. No JVD, lymph nodes, bruit, thyromegaly noted. Lungs: Bilateral good equal air entry. Clear to auscultation except presence of rales in left lung base. Not using any accessory muscles of respiration. Heart: Normal heart sounds, no murmur or gallop. Abdomen: Soft, bowel sounds normal. No guarding, rigidity, tenderness, mass, hepatosplenomegaly, distention, or bruit noted. Extremities: No leg edema. No calf tenderness. Skin: No rash, ulcer, cellulitis. Lymphatics: No lymph node enlargement in neck, supraclavicular, infraclavicular region. Neuro: No focal neurological deficit. Chest: Unremarkable. External Genitalia: Deferred. Rectal: Deferred. Laboratory Data: Chest x-ray did not show any acute cardiopulmonary changes. CAT scan of the abdomen and pelvis showed evidence of left lower lobe pneumonia. WBC 12.4, hemoglobin 13.2, platelets 157. Sodium 133, potassium 4.5, chloride 104, bicarb 24, BUN 20, creatinine 1.23, glucose 123. Liver function tests significant for total bilirubin 1.2 and AST 40. Impression: 1. Pneumonia. 2. Hypertension. 3. Coronary artery disease. 4. Chronic kidney disease stage 3A. 5. Peripheral vascular disease. 6. Hyperlipidemia. 7. Hypothyroidism. 8. Chronic obstructive pulmonary disease. 9. Gastroesophageal reflux disease. 10. Osteoporosis. 11. Osteoarthritis, multiple sites. 12. Peripheral neuropathy. 13. Diverticulosis. 14. Impaired fasting glucose. Plan: Admit the patient to hospital for further evaluation and management of this problem. The patient is appropriate for inpatient and is expected to spend 2 midnights in the hospital. For pneumonia, we will go ahead and start her on antibiotics, which is doxycycline and ceftriaxone per order and she received her first dose in the emergency room. Give nebulizer treatment as needed per order. DVT prophylaxis will be given per order, using Lovenox. For hypertension, we will continue her amlodipine per order. Monitor blood pressure and if necessary, adjust medication, but otherwise no need for further intervention. Hyperlipidemia, we will continue her atorvastatin. No need for any further intervention. For hypothyroidism, continue levothyroxine per order and no need for further intervention. For COPD, she takes Advair at home, but we do not have that available at the hospital and will use different inhaler called Dulera 2 puffs 2 times a day per order. I will see her tomorrow morning for followup. Total time spent today was 80 minutes, including review of emergency room visit record, communication with the emergency room provider, review of last office visit record from 11/25/2023, and performing today's evaluation and management. KRISTIN/BESSY Voice ID: [id number] TAY
--- NOTE | 2024-01-20 09:59 | RAD REPORT ---
EXAMINATION: TWO VIEW CHEST XR CLINICAL INDICATION: Female, 83 years [address] [facility] MAIN pneumonia TECHNIQUE: 2 view radiographs of the chest were performed. COMPARISON: 01/18/2024 FINDINGS: Retrocardiac airspace opacities, mildly progressive since the prior exam, may relate to atelectasis a nd/or effusion No pneumothorax or other sizable sizable effusion. The heart is normal in size. Mediastinal contours are unremarkable. IMPRESSION: Retrocardiac airspace opacities, mildly progressive, may relate to atelectasis and/or effusion.
[2024-01-20] MEDS: ONDANSETRON 4 MG/2 ML VIAL IV PRN (10:21)
--- NOTE | 2024-01-20 20:49 | PN ---
Date of Progress Note: 01/20/2024 Subjective: The patient was seen this morning for followup. She was lying in bed, not in any distre ss. Denies any new complaints. Objective: Vital Signs: Reviewed. HEENT: Unremarkable. Lungs: Clear to auscultation except left lung basal rales unchanged from yesterday. Not using acces reyna muscles of respiration. Heart: Sounds normal. Abdomen: Soft. Bowel sounds normal. No guarding, rigidity, tenderness, distention. Extremities: No leg edema. Impression: 1.Pneumonia. 2.Asthma. 3.Hypothyroidism. 4.Chronic steroid therapy. Plan: We will go ahead and continue current antibiotic. We will get a chest x-ray done today. Repe at blood work tomorrow. I will see her tomorrow for followup, possible discharge to go home tomorrow depending on her condition. KRISTIN/MODL Voice ID: [id number] Report ID: [id number]
[2024-01-20] MEDS ORDERED: PIPER TAZO 3.375 GM in NA CHLORIDE 0.9% 100 ML IV SCH (23:14)
[2024-01-20] MEDS: NA CHLORIDE 0.9% 1,000 ML IV SCH (23:17)
[2024-01-20] MEDS: PIPER TAZO 3.375 GM in NA CHLORIDE 0.9% 100 ML IV SCH (23:27)
[2024-01-21 00:03] LABS: Specific Gravity 1.013 (1.005-1.030); Sqamous Epithelial <5 /HPF (None Seen); Urine Bacteria None Seen /HPF (<20); Urine Bilirubin NEGATIVE (Negative); Urine Blood Negative (Negative); Urine Clarity Turbid (Clear); Urine Color Light-Yellow (Yellow); Urine Culture Reflex Order NOT NEEDED; Urine Glucose NEGATIVE (Negative); Urine Ketones NEGATIVE (Negative); Urine Microscopic Reflex YN ORDER UMIC; Urine Mucus Slight /HPF (None Seen); Urine Nitrite NEGATIVE (Negative); Urine Protein TRACE (Negative); Urine RBC <5 /HPF (None Seen); Urine Urobilinogen Normal (Normal); Urine WBC <5 /HPF (<5); Urine pH 5.5 (5.0-7.0)
[2024-01-21 04:40] LABS: Absolute Lymphocytes (CBC) 1.2 K/uL (0.7-4.9); Absolute Monocytes 1.4 K/uL (0.1-1.3); Absolute Neutrophil 9.5 K/uL (1.8-8.0); Basophils % 0.3 % (0-1.3); Eosinophils % 0.4 % (0-4.4); Hematocrit 33.9 % (36.0-45.0); Hemoglobin 11.2 g/dL (12.0-15.0); Lymphocytes % 9.9 % (15.3-44.8); MCH 28.4 pg (27.0-35.0); MCHC 32.9 g/dL (32.0-36.0); MCV 86.2 fL (80-100); MPV 8.9 fL (7.6-11.3); Monocytes % 11.5 % (3.3-12.3); Neutrophils % 77.9 % (41.7-73.7); Nucleated Red Blood Cells % 0.1 % (0-0); Platelets 108 thou/uL (152-406); RBC Red Blood Cell Count 3.94 M/uL (3.86-4.86); Red Cell Distribution Width 13.7 % (12.1-15.2)
[2024-01-21 04:45] LABS: Anion Gap 7.8 mEq/L (5.0-15.0); Potassium 3.8 mEq/L (3.5-5.1)
[2024-01-21] MEDS: MAGNESIUM HYDROXIDE 8% 30 ML PO ONE (10:43)
--- NOTE | 2024-01-21 15:07 | PN ---
Date of Progress Note: 01/21/2024 Subjective: The patient was seen this morning for followup. Last night, her temperature had gone up to 103 degrees Fahrenheit. We did make some changes in her antibiotics last night. Physical Examination: Vital Signs: This morning, temperature 98.9, pulse 87, respiratory rate 12, blood pressure 109/54, o xygen saturation 92% on room air. HEENT: Unremarkable. Lungs: Bilateral good equal air entry. Presence of rales noted in left lower half of lung king. Heart: Heart sounds normal. Abdomen: Soft, bowel sounds normal. No guarding, rigidity, tenderness, distention. Extremities: No leg edema. Laboratory Data: WBC 12.2, hemoglobin 11.2, platelets 108. Sodium 138, potassium 3.8, chloride 110, bicarb 24, BUN 13, creatinine 0.89, glucose 110. Impression: 1.Pneumonia. 2.Thrombocytopenia. 3.Anemia. 4.Hypothyroidism. 5.Chronic steroid therapy. Plan: We will go ahead and continue current azithromycin and last night, we stopped ceftriaxone and started her on Zosyn. Initial blood culture was negative. Repeat blood culture was done last night. We will follow up on that result. The patient is complaining of constipation. Has not had a bowel movement since she has been in hospital and milk of magnesia was ordered for her today and we will start her on Senokot-S 2 tablets daily at bedtime. I will see her tomorrow for followup. KRISTIN/MODL Voice ID: [id number] Report ID: [id number]
[2024-01-21] MEDS: AMLODIPINE 5 MG TAB PO SCH (20:28)
[2024-01-21] MEDS: DOCUSATE NA/SENNA CONC 1 TAB PO SCH (20:32)
[2024-01-21] MEDS ORDERED: PIPER TAZO 3.375 GM in NA CHLORIDE 0.9% 100 ML IV SCH (22:21)
--- NOTE | 2024-01-22 08:28 | PN ---
Date of Progress Note: 01/22/2024 Subjective: The patient was seen this morning for followup. No new complaints or problems reported by the patient except she reports that when she gets up and moves around, she gets short of breath an d tired. No nausea, no vomiting. Objective: Vital Signs: Reviewed. Last temperature this morning 98.9, pulse 96, respiratory rate 1 7, blood pressure 106/48, oxygen saturation 94% on 28% FiO2. HEENT: Unremarkable. Lungs: Clear to auscultation on the right side. Left side, left lower half lung king has diminish ed air entry with some crackles, unchanged from yesterday. Not using any accessory muscles of respir ation. Heart: Sounds normal. Abdomen: Soft. Bowel sounds normal. No guarding, rigidity, tenderness, distention. Extremities: No leg edema. Laboratory Data: There were no new labs this morning. Chest x-ray was ordered to be done today. We will follow up on the results. Impression: 1.Pneumonia. 2.Acute respiratory failure with hypoxia. 3.Hypertension. 4.Chronic steroid therapy. 5.Hypothyroidism. Plan: We will go ahead and continue current antibiotic which is doxycycline and Zosyn. The patient' s temperature has come down and she is afebrile now. She has responded well to this current antibiot ic. We will repeat chest x-ray today. Follow up on that. She is on maintenance IV fluid normal rod ine at 50 cc/hour. We will discontinue that now and she was encouraged to spend some time sitting in the chair around her meal time and also to ambulate in the room as much as she can tolerate. Continue current levothyroxine. Continue Lovenox for DVT prophylaxis and I will see her tomorrow for followup. KRISTIN/MODL Voice ID: [id number] Report ID: [id number]
--- NOTE | 2024-01-22 08:33 | RAD REPORT ---
EXAMINATION: TWO VIEW CHEST XR CLINICAL INDICATION: pneumonia TECHNIQUE: 2 views of the chest was performed. COMPARISON: 01/20/2024 FINDINGS: [id number] bilateral pulmonary opacities are present most likely representing pulmonary edema. The heart is moderately enlarged in size. Trace pleural fluid bilaterally. No displaced fractures evident. Aortic atherosclerosis. IMPRESSION: Mild CHF versus volume overload, unchanged since comparison study.
[2024-01-22 12:24] LABS: Absolute Lymphocytes (CBC) 0.9 K/uL (0.7-4.9); Absolute Neutrophil 10.8 K/uL (1.8-8.0); Basophils % 0.3 % (0-1.3); Hematocrit 32.1 % (36.0-45.0); Hemoglobin 10.3 g/dL (12.0-15.0); Lymphocytes % 7.1 % (15.3-44.8); MCH 27.8 pg (27.0-35.0); MCHC 32.1 g/dL (32.0-36.0); MCV 86.7 fL (80-100); MPV 8.7 fL (7.6-11.3); Monocytes % 8.1 % (3.3-12.3); Neutrophils % 84.5 % (41.7-73.7); Platelets 165 thou/uL (152-406); RBC Red Blood Cell Count 3.71 M/uL (3.86-4.86); Red Cell Distribution Width 13.7 % (12.1-15.2)
[2024-01-22] MEDS: FUROSEMIDE 20 MG/ 2ML VIAL IV ONE (12:36)
[2024-01-22 12:44] LABS: Anion Gap 8.5 mEq/L (5.0-15.0); Potassium 3.5 mEq/L (3.5-5.1)
[2024-01-23 06:26] LABS: Absolute Eosinophils 0.1 K/uL (0-0.5); Absolute Lymphocytes (CBC) 1.9 K/uL (0.7-4.9); Absolute Neutrophil 7.3 K/uL (1.8-8.0); Basophils % 0.3 % (0-1.3); Eosinophils % 1.1 % (0-4.4); Hematocrit 29.8 % (36.0-45.0); Lymphocytes % 18.2 % (15.3-44.8); MCH 28.6 pg (27.0-35.0); MCHC 33.5 g/dL (32.0-36.0); MCV 85.4 fL (80-100); MPV 8.8 fL (7.6-11.3); Monocytes % 9.9 % (3.3-12.3); Neutrophils % 70.5 % (41.7-73.7); Platelets 178 thou/uL (152-406); RBC Red Blood Cell Count 3.49 M/uL (3.86-4.86); Red Cell Distribution Width 13.6 % (12.1-15.2)
[2024-01-23 06:32] LABS: Anion Gap 8.2 mEq/L (5.0-15.0); Magnesium 2.2 mg/dL (1.6-2.4); Potassium 3.2 mEq/L (3.5-5.1)
--- NOTE | 2024-01-23 10:40 | P.CNS ---
Date of Consult: 01/23/24 Reason for Consult: Pneumonia hypoxemia Chief Complaint: Fever and rigors History of Present Illness: Patient is 83 years of age admitted with sudden onset of chills and rigors with urinary tract symptoms and any pulmonary complaints he does have a history of COPD former smoker uses inhaler as needed basis currently denies any shortness of breath Allergies azithromycin [From Zithromax] Allergy (Intermediate, Verified 07/17/12 06:03) Itching codeine Allergy (Intermediate, Verified 07/17/12 00:05) Hives/Rash levofloxacin [From Levaquin] Allergy (Intermediate, Verified 07/17/12 06:03) Hives/Rash Home Medications: Atorvastatin Calcium [Lipitor] 20 mg PO BEDTIME 06/24/22 Ibandronate Sodium 150 mg PO SEECOM 06/24/22 Prednisone 5 mg PO DAILY 06/24/22 cloNIDine HCL [Clonidine HCl] 0.1 mg PO SEECOM PRN 06/24/22 Amlodipine [Norvasc] 5 mg PO BEDTIME 01/20/24 Famotidine [Pepcid] 40 mg PO DAILY 01/20/24 Fluticasone Propion/Salmeterol [Fluticasone-Salmeterol 100-50] 1 each IH BID 01/20/24 Levothyroxine Sodium 112 mcg PO SEECOM 01/20/24 Nitrofuran Macro [Macrodantin] 50 mg PO DAILY 01/20/24 Psyllium [Metamucil] 1 pkt PO DAILY 01/20/24 Vibegron [Gemtesa] 75 mg PO DAILY 01/20/24 - Past Medical/Surgical History Diabetic: No -: COPD -: Hypothyroid -: Iron deficiency anemia -: choleycysectomy -: tumor removal (L) ovary -: hysterectomy - Social History Smoking Status: Former smoker, Unknown if ever smoked Alcohol use: No CD- Drugs: No Caffeine use: No Review of Systems 10-point ROS is otherwise unremarkable General: Weakness Physical Examination Temp Pulse Resp BP Pulse Ox 98.1 F 84 16 115/63 95 01/23/24 08:00 01/23/24 08:00 01/23/24 08:00 01/23/24 08:00 01/23/24 08:00 General: Alert, In no apparent distress, Oriented x3 HEENT: Atraumatic Neck: Supple Respiratory: Clear to auscultation bilaterally Cardiovascular: No edema, Regular rate/rhythm, Normal S1 S2 Gastrointestinal: Normal bowel sounds, Soft and benign - Problems (1) Cystitis Current Visit: Yes Status: Acute Plan: Patient is 83 years of age admitted with sudden onset of fever and chills most likely it is from her cystitis doubt pneumonia. A CT scan of the thorax count is now normal cultures so far negative signs stable oxygenation satisfactory no fever for the past 24 hours patient did have fever on admission (2) COPD (chronic obstructive pulmonary disease) Current Visit: Yes Status: Acute Plan: Patient has a history of COPD uses bronchodilator on a as needed basis former heavy smoker room air pulse ox continue with inhaled bronchodilators increase to stress doses of Prednisone to 5 mg twice a day/also need outpatient evaluation with pulmonary function testing Qualifiers: COPD type: unspecified COPD Qualified Code(s): J44.9 - Chronic obstructive pulmonary disease, unspecified
--- NOTE | 2024-01-23 12:07 | RAD REPORT ---
EXAM:Thorax Wo Con CLINICAL INDICATION: Chest pain TECHNIQUE: CT chest performed.. Axial, sagittal and coronal reconstructions were obtained. One or mor e of the following dose reduction techniques were used: Automated exposure control, adjustment of the mA and/or kV according to the patient size, and/or iterative reconstruction. Unless otherwise specified, incidental findings do not require dedicated imaging follow-up. [id number]. COMPARISON: 2022 FINDINGS: 11 cm consolidation left lower lobe. No mediastinal or hilar lymphadenopathy Minimal left pleural effusion. . No pericardial effusion Calcification origin left subclavian artery results in a severe stenosis. Calcification superior mese nteric artery is in a severe stenosis. Hepatic cysts IMPRESSION: Left lower lobe pneumonia. This should be followed until has cleared to help exclude a postobstructiv e process/underlying mass.
[2024-01-23] MEDS: POTASSIUM 25 MEQ EFFERV TAB PO ONE (12:58)
[2024-01-23] MEDS: FUROSEMIDE 20 MG/ 2ML VIAL IV ONE (12:58)
--- NOTE | 2024-01-23 16:52 | PN ---
Date of Progress Note: 01/23/2024 Subjective: Patient was seen this morning for followup. She was sitting in the chair. Looking bett er today than last few days. Feeling overall better. Still has some cough, chest congestion. Has h ad some vague abdominal discomfort with some nausea. No vomiting. Objective: Vital Signs: Reviewed. Last temperature this morning was 98.1, pulse 84, respiratory ra te 16, blood pressure 115/63, oxygen saturation 93%. HEENT: Unremarkable. Lungs: Clear to auscultation on the right side. Left lung shows rales in the lower half of the left lung with improved air entry today compared to yesterday. Not in any respiratory distress. Heart: Sounds normal. Abdomen: Soft. Bowel sounds normal. No guarding, rigidity, tenderness, distention. Extremities: No leg edema. Laboratory Data: White count 10.3, hemoglobin 10, platelets 178. Sodium 141, potassium 3.2, chlorid e 109, bicarb 27, BUN 13, creatinine 0.89, glucose 99. Yesterday's BNP was 2178. CAT scan of the est shows left lower lobe pneumonia. Impression: 1.Pneumonia. 2.Congestive heart failure, diastolic. 3.Chronic steroid therapy. 4.Hypothyroidism. 5.Hypertension. 6.Acute respiratory failure with hypoxia. Plan: We will go ahead and continue current antibiotic which is Zosyn and doxycycline. Dr. Torres from Pulmonary was consulted. He has seen the patient today and CAT scan of the chest done today as per his order shows pneumonia and the patient clinically has responded well to pneumonia, so far, wi th this current antibiotic and I will continue those. I will see her tomorrow for followup, possible discharge to go home either tomorrow or day after tomorrow depending on her condition. We will continue her prednisone. Continue levothyroxine and so far blood cultures are negative. Uri ne culture negative. KRISTIN/MODL Voice ID: [id number] Report ID: [id number]
[2024-01-23] MEDS: predniSONE 5 MG TAB PO SCH (20:54)
[2024-01-24] MEDS: POTASSIUM 25 MEQ EFFERV TAB PO ONE (01:07)
[2024-01-24 05:10] VITALS: TEMP 98.4
[2024-01-24 08:37] VITALS: BP 108/46
[2024-01-24 10:29] VITALS: O2SAT 98
--- NOTE | 2024-01-26 11:01 | ECHO ---
HEIGHT: 5 ft 7 in WEIGHT: 200 lb 0 oz DATE OF STUDY: 01/24/[address]: Gilles Ma MD 2-DIMENSIONAL: YES M.MODE: YES DOPPLER: YES COLOR FLOW: YES TDS: NO PORTABLE: YES DEFINITY: NO BUBBLE STUDY: NO DIAGNOSIS: CONGESTIVE HEART FAILURE CARDIAC HISTORY: CATHERIZATION: NO SURGERY: NO PROSTHETIC VALVE: NO PACEMAKER: NO MEASUREMENTS (cm) DIASTOLIC (NORMALS) SYSTOLIC (NORMALS) IVSd 1.0 (0.6-1.2) LA Diam 2.1 (1.9-4.0) LVEF 60-65% LVIDd 4.6 (3.5-5.7) LVIDs 3.1 (2.0-3.5) %FS 33% LVPWd 1.2 (0.6-1.2) Ao Diam 2.6 (2.0-3.7) 2 DIMENSIONAL ASSESSMENT: RIGHT ATRIUM: NORMAL LEFT ATRIUM: NORMAL RIGHT VENTRICLE: NORMAL LEFT VENTRICLE: NORMAL TRICUSPID VALVE: TRACE MITRAL REGURGITATION MITRAL VALVE: TRACE MITRAL REGURGITATION PULMONIC VALVE: NORMAL AORTIC VALVE: NORMAL PERICARDIAL EFFUSION: NONE AORTIC ROOT: NORMAL LEFT VENTRICULAR WALL MOTION: NORMAL. DOPPLER/COLOR FLOW: GRADE I DIASTOLIC DYSFUNCTION. COMMENTS: 1. NORMAL LEFT VENTRICULAR SYSTOLIC FUNCTION. LEFT VENTRICULAR EJECTION FRACTION 60-65%. NORMAL WALL MOTION. 2. GRADE I DIASTOLIC DYSFUNCTION. 3. NORMAL FILLING PRESSURES. TECHNOLOGIST: PHOEBE RIZVI
--- NOTE | 2024-02-07 05:05 | DS ---
Date of Discharge: 01/24/2024 Disposition: Discharged to go home. Physical Examination: HEENT: Unremarkable. Lungs: Clear to auscultation. No wheezing. No rales. Not in respiratory distress. Heart: Sounds normal. Abdomen: Soft. Bowel sounds normal. No guarding, rigidity, tenderness, distention. Extremities: No leg edema. Laboratory Data: Upon admission, white count 12.4, hemoglobin 13.2, platelets 157. Last CBC from , white count 10.3, hemoglobin 10, platelets 178. For chemistry, last chemistry today on day of discharge, sodium 138, potassium 4, chloride 107, bicarb 27, BUN 12, creatinine 0.72, glucose 105 . Upon admission, sodium 133, potassium 4.5, chloride 104, bicarb 24, BUN 20, creatinine 1.23, gluco se 123. ProBNP 2178. Blood culture and urine culture remain negative. Echocardiogram shows ejectio n fraction 60% to 65% with grade 1 diastolic dysfunction, and this was done on 01/22/2024. CAT scan of the chest from 01/23/2024 shows left lower lobe pneumonia. Hospital Course: This is an 83-year-old pleasant female patient, admitted to the hospital with cough , congestion, and fever. The patient was evaluated in the emergency room. She was admitted to the [facility] with pneumonia. The patient was admitted to the hospital, was treated with IV antibiotics. Over a period of time, her condition improved. We were also concerned about congestive heart failure problem, especially diastolic heart failure problem, which we were able to prove it on basis of her echocardiogram finding, and the patient did require some diuretic medication use also. The patient a lso had acute respiratory failure with hypoxia, which got corrected before discharge and she did not have to go home with home oxygen. After her condition improved, she was discharged to go home in sta ble condition with following discharge medications and instructions. Final Diagnoses: 1.Pneumonia. 2.Acute respiratory failure with hypoxia. 3.Chronic diastolic heart failure. 4.Hypertension. 5.Coronary artery disease. 6.Chronic kidney disease stage 3A. 7.Peripheral vascular disease. 8.Hyperlipidemia. 9.Hypothyroidism. 10.Chronic obstructive pulmonary disease. 11.Gastroesophageal reflux disease. 12.Osteoporosis. 13.Osteoarthritis, multiple sites. 14.Peripheral neuropathy. 15.Diverticulosis. 16.Impaired fasting glucose. Discharge Medications And Instructions: 1.Continue all prior home medications. 2.Start following new medications: a.Augmentin 875 mg 2 times a day with food for 10 days. b.Doxycycline 100 mg 2 times a day with food for 10 days. 3.Avoid direct sunlight exposure while taking doxycycline for 10 days. 4.Follow up at my office next week. Total time spent 40 minutes. KRISTIN/MODL Voice ID: [id number] Report ID: [id number]
== END 2024-01-24 10:26 | disposition home or self-care (01) | DRG 193 ==
LOC: ER 22:04 → ERHOLD 01-19 02:43 → 2ND 01-19 19:19 → OBSVTOIN 01-20 09:15
PROVIDERS: ADMIT Internal Medicine; ATTEND Internal Medicine
DX: J18.9 Pneumonia, unspecified organism (principal); J96.01 Acute respiratory failure with hypoxia; J44.0 Chronic obstructive pulmonary disease with (acute) lower respiratory infection; J44.1 Chronic obstructive pulmonary disease with (acute) exacerbation; I13.0 Hypertensive heart and chronic kidney disease with heart failure and stage 1 through stage 4 chronic kidney disease, or unspecified chronic kidney disease; I50.32 Chronic diastolic (congestive) heart failure; Z88.1 Allergy status to other antibiotic agents; Z88.5 Allergy status to narcotic agent; E03.9 Hypothyroidism, unspecified; E78.5 Hyperlipidemia, unspecified; K21.9 Gastro-esophageal reflux disease without esophagitis; M81.0 Age-related osteoporosis without current pathological fracture; M19.90 Unspecified osteoarthritis, unspecified site; G62.9 Polyneuropathy, unspecified; F32.A Depression, unspecified; E66.9 Obesity, unspecified; Z68.31 Body mass index [BMI] 31.0-31.9, adult; K57.90 Diverticulosis of intestine, part unspecified, without perforation or abscess without bleeding; I73.9 Peripheral vascular disease, unspecified; I25.10 Atherosclerotic heart disease of native coronary artery without angina pectoris; N18.31 Chronic kidney disease, stage 3a; Z87.891 Personal history of nicotine dependence; Z90.49 Acquired absence of other specified parts of digestive tract; Z90.710 Acquired absence of both cervix and uterus; Z79.51 Long term (current) use of inhaled steroids; D69.6 Thrombocytopenia, unspecified; D64.9 Anemia, unspecified
CPT/HCPCS: 36415; 51702; 71045; 71046; 71250; 74177; 80048; 80053; 81001; 83605; 83735; 83880; 84132; 85025; 85610; 85730; 87040; 87070; 87081; 87086; 87088; 87804; 87811; 93306; 96361; 96365; 96375; 99285; G0378; J0696; J1650; J1940; J2405; J2543; J3535; J7030; J7512; J7613; Q9967

== ENCOUNTER 2024-02-25 11:05 | Emergency (ER) | payer OTHER ==
--- NOTE | 2024-02-25 12:23 | RAD REPORT ---
EXAM: CT brain without contrast HISTORY: fall COMPARISON: None TECHNIQUE: Multiple contiguous axial images were obtained and a CT of the brain without contrast. Sag ittal and coronal reformats were performed. One or more of the following dose reduction techniques were used: Automated exposure control, adjust ment of the mA and/or kV according to patient size, and/or iterative reconstruction. FINDINGS: No evidence of hydrocephalus, intracranial hemorrhage, or extra-axial fluid collection. Mild brain atrophy with mild periventricular and deep white matter chronic microvascular ischemic ch anges present. No evidence of midline shift or areas of brain edema. The calvarium is intact. The visualized paranasal sinuses and mastoid air cells are essentially clear . IMPRESSION: No evidence of acute intracranial abnormality. EXAM: CT of the cervical spine without contrast HISTORY: Neck pain, injury fall TECHNIQUE: Multiple contiguous axial images were obtained in a CT of the cervical spine without contr ast. Sagittal and coronal reformats were performed. FINDINGS: 2 mm anterolisthesis C3 on 4. 2 mm anterolisthesis C4 on 5. 2 mm retrolisthesis C5 on 6. No evidence of acute fracture or subluxation.. No prevertebral soft tissue swelling is seen. The posterior facets are well aligned. Normal alignment of the skull base with the cervical spine is seen. Heavy bilateral carotid atherosclerosis, greater on the left. The lung apices are unremarkable. IMPRESSION: No evidence of acute osseous abnormality of the cervical spine.
--- NOTE | 2024-02-25 12:37 | ER ---
Nurse's Notes [facility] Name: Ruthie Smith Age: 83 yrs Sex: Female : 1940 Arrival Date: 02/25/2024 Time: 11:05 Bed 17 Private MD: Diagnosis: Fall on same level, unspecified;Headache Presentation: 02/24 11:09 Chief complaint: Patient states: had on slip socks, sat on bed and feet slid out from ko1 under me. I hit my left side of my head on the nightstand and my left shoulder. It happened about 1am. Took tylenol, my vision is blurry in the left eye only. Coronavirus screen: At this time, the client does not indicate any symptoms associated with coronavirus-19. Ebola Screen: No symptoms or risks identified at this time. Initial Sepsis Screen: Does the patient meet any 2 criteria? No. Patient's initial sepsis screen is negative. Does the patient have a suspected source of infection? No. Patient's initial sepsis screen is negative. Risk Assessment: Do you want to hurt yourself or someone else? Patient reports no desire to harm self or others. Onset of symptoms was February 25, 2024 at 01:00. 11:09 Method Of Arrival: Ambulatory ko1 11:09 Acuity: TOLU 4 ko1 Triage Assessment: 11:14 General: Appears in no apparent distress. Behavior is calm, cooperative, appropriate ko1 for age. Pain: Complains of pain in left orthodoxy. EENT: Reports blurred vision in left eye. Historical: - Allergies: 11:14 Azithromycin; ko1 11:14 Codeine; ko1 11:14 Levofloxacin; ko1 11:14 Vicodin; ko1 - Home Meds: 11:14 Unable to obtain [Active]; ko1 - PMHx: 11:14 COPD; Hypertension; sepsis-uro; urinary; Thyroid problem; UTI; ko1 - PSHx: 11:14 Appendectomy; Total abdominal hysterectomy; Cholecystectomy; ko1 - Immunization history:: Adult Immunizations up to date. - Infectious Disease History:: Denies. - Social history:: Smoking status: Patient/guardian denies using tobacco, but has a distant history of tobacco abuse. Screenin:50 [facility] ED Fall Risk Assessment (Adult) History of falling in the last 3 months, os including since admission Yes- single mechanical fall (1 pt) Confusion or Disorientation No (0 pts) Intoxicated or Sedated No (0 pts) Impaired Gait No (0 pts) Mobility Assist Device Used No (0 pt) Altered Elimination No (0 pt) Score/Fall Risk Level 0 - 2 = Low Risk Oriented to surroundings, Maintained a safe environment, Educated pt \T\ family on fall prevention, incl call for assistance when getting out of bed. Abuse screen: Denies threats or abuse. Nutritional screening: No deficits noted. Tuberculosis screening: No symptoms or risk factors identified. Primary Survey: 12:50 NO uncontrolled hemorrhage observed. A: The client is awake and alert. The airway is os patent. Breathing/Chest: Spontaneous respiratory effort, equal unlabored respirations, breath sounds clear bilaterally, regular pattern, symmetrical chest rise and fall. Circulation: No external hemorrhage present. Regular and strong central pulse, skin warm/dry/normal color. Disability Client is alert. Exposure/Environment: All clothing and personal items were removed. There is no evidence of uncontrolled external bleeding. No obvious injuries are noted at this time. A warming method has been applied: A warm blanket has been provided to the patient. Reassessment Alertness and Airway: Awake and alert. The airway is patent. Breathing: Spontaneous respiratory effort, equal unlabored respirations, breath sounds clear bilaterally, regular pattern with symmetrical chest rise and fall. Circulation: No external hemorrhage noted. Regular and strong central pulse, skin warm/dry/normal color. Disability: Pupils Pupils are equal, round, reactive to light and accomodation. Alert. Assessment: 11:41 Reassessment: No changes from previously documented assessment. Patient and/or family os updated on plan of care and expected duration. Pain level reassessed. Patient is alert, oriented x 3, equal unlabored respirations, skin warm/dry/pink. General: Appears in no apparent distress. Behavior is calm, cooperative, appropriate for age. Pain: Complains of pain in left ear, left eye and left orthodoxy Pain currently is 4 out of 10 on a pain scale. Neuro: No deficits noted. EENT: No deficits noted. Cardiovascular: No deficits noted. Respiratory: No deficits noted. Vital Signs: 11:09 BP 123 / 63; Pulse 86; Resp 16; Temp 97.6; Pulse Ox 98% ; Weight 88 kg; Height 5 ft. 6 ko1 in. ; 11:09 Body Mass Index 31.31 (88.00 kg, 167.64 cm) ko1 ED Course: 11:08 Patient arrived in ED. ra3 11:09 Joseph Johnston DO is Attending Physician. ms3 11:14 Triage completed. ko1 11:14 Arm band placed on right wrist. Patient placed in an exam room, on a stretcher, on ko1 pulse oximetry, Patient notified of wait time. 11:26 Angelica Warren, RN is Primary Nurse. os 11:49 CT Head C Spine In Process Unspecified. EDMS Administered Medications: No medications were administered Outcome: 12:36 Discharge ordered by MD. ms3 12:51 Patient left the ED. me1 Signatures: Dispatcher [employer] EDMS Joseph Johnston DO DO ms3 Luz Deal, RN RN ko1 Angelica Warren, RN RN os Lalitha Robert RN RN me1 Pooja Cohen ra3
--- NOTE | 2024-02-25 12:37 | EDPHYS ---
Physician Documentation [facility] Name: Ruthie Smith Age: 83 yrs Sex: Female : 1940 Arrival Date: 02/25/2024 Time: 11:05 Bed 17 Private MD: ED Physician Joseph Johnston HPI: 02/24 12:08 This 83 yrs old Female presents to ER via Ambulatory with complaints of Fall ms3 Injury, Blurred Vision. 12:08 Ruthie Smith an 83 year old female presents to the Emergency Department after ms3 experiencing a fall last night. She was attempting to adjust her position in bed when she slipped due to wearing hospital socks, hitting a nearby table. She reports pain on the left side of her head and has been experiencing blurred vision in one eye since the fall. Additionally, she feels nauseated this morning but reports not having vomited. There is no diarrhea, fever, or chills.. Historical: - Allergies: 11:14 Azithromycin; ko1 11:14 Codeine; ko1 11:14 Levofloxacin; ko1 11:14 Vicodin; ko1 - Home Meds: 11:14 Unable to obtain [Active]; ko1 - PMHx: 11:14 COPD; Hypertension; sepsis-uro; urinary; Thyroid problem; UTI; ko1 - PSHx: 11:14 Appendectomy; Total abdominal hysterectomy; Cholecystectomy; ko1 - Immunization history:: Adult Immunizations up to date. - Infectious Disease History:: Denies. - Social history:: Smoking status: Patient/guardian denies using tobacco, but has a distant history of tobacco abuse. ROS: 12:08 Constitutional: Negative for fever, and chills. Cardiovascular: Negative for chest ms3 pain, and palpitations. Respiratory: Negative for shortness of breath, cough, wheezing, and pleuritic chest pain, Abdomen/GI: Negative for abdominal pain, nausea, vomiting, diarrhea, and constipation, MS/Extremity: Negative for injury and deformity, 12:08 Eyes: Positive for visual disturbance, 12:08 Neuro: Positive for headache, Exam: 12:08 Constitutional: This is a well developed, well nourished patient who is awake, alert, ms3 and in no acute distress. 12:08 Cardiovascular: Regular rate and rhythm with a normal S1 and S2. No gallops, murmurs, or rubs. Normal PMI, no JVD. No pulse deficits. Respiratory: Lungs have equal breath sounds bilaterally, clear to auscultation and percussion. No rales, rhonchi or wheezes noted. No increased work of breathing, no retractions or nasal flaring. Abdomen/GI: Soft, non-tender, with normal bowel sounds. No distension or tympany. No guarding or rebound. No evidence of tenderness throughout. Skin: Warm, dry with normal turgor. Normal color with no rashes, no lesions, and no evidence of cellulitis. 12:08 Head/face: Noted is tenderness, Vital Signs: 11:09 BP 123 / 63; Pulse 86; Resp 16; Temp 97.6; Pulse Ox 98% ; Weight 88 kg; Height 5 ft. 6 ko1 in. ; 11:09 Body Mass Index 31.31 (88.00 kg, 167.64 cm) ko1 MDM: 11:48 Medical Screening Exam initiated ms3 12:08 Differential diagnosis: closed head injury, contusion, fracture, sprain, strain. ms3 19:38 Data reviewed: vital signs, nurses notes, radiologic studies, and as a result, I will ms3 discharge patient. Counseling: I had a detailed discussion with the patient and/or guardian regarding the historical points, exam findings, and any diagnostic results supporting the discharge/admit diagnosis, radiology results, the need for outpatient follow up, to return to the emergency department if symptoms worsen or persist or if there are any questions or concerns that arise at home. Special discussion: I discussed with the patient/guardian in detail that at this point there is no indication for admission to the hospital. It is understood, however, that if the symptoms persist or worsen the patient needs to return immediately for re-evaluation. ED course: Discussed CT head neck with patient and her daughter. On reevaluation patient is alert and orient x 4, no apparent distress, nontoxic-appearing, speaking full sentences, ambulatory in the emergency department. Patient to follow-up with her primary care physician in 2 to 3 days. All questions were answered. Return precautions discussed include worsening symptoms, or any other concerns. 02/24 11:37 Order name: CT Head C Spine; Complete Time: 12:26 ms3 Administered Medications: No medications were administered Disposition Summary: 02/25/24 12:36 Discharge Ordered Notes: Location: Home ms3 Condition: Stable ms3 Diagnosis - Fall on same level, unspecified ms3 - Headache ms3 Followup: ms3 - With: Private Physician - When: 2 - 3 days - Reason: Recheck today's complaints Discharge Instructions: - Discharge Summary Sheet ms3 - Fall Prevention in the Home, Adult, [id number] ms3 Forms: - Medication Reconciliation Form ms3 - Antibiotic Education ms3 - Prescription Opioid Use ms3 - Patient Portal Instructions ms3 - Leadership Thank You Letter ms3 Signatures: Dispatcher [employer] EDJoseph Masters DO DO ms3 Luz Deal, RN RN ko1
[2024-02-25 12:58] VITALS: BP 123/63; TEMP 97.6; O2SAT 98
== END 2024-02-25 12:51 | disposition home or self-care (01) ==
LOC: ER 11:05
DX: R51.9 Headache, unspecified (principal); H53.8 Other visual disturbances; W01.0XXA Fall on same level from slipping, tripping and stumbling without subsequent striking against object, initial encounter
CPT/HCPCS: 70450; 72125; 99282

== ENCOUNTER 2024-05-05 21:04 | Inpatient (IN) | payer OTHER ==
[2024-05-05 22:36] LABS: Sqamous Epithelial <5 /HPF (None Seen); Urine Bacteria <20 /HPF (<20); Urine Bilirubin NEGATIVE (Negative); Urine Blood 2+ (Negative); Urine Clarity Extremely Turbid (Clear); Urine Color Light-Orange (Yellow); Urine Crystals Unidentified Few /HPF (None Seen); Urine Culture Reflex Order REFLEXED; Urine Glucose NEGATIVE (Negative); Urine Ketones NEGATIVE (Negative); Urine Micro Reflex YN NO BILL MICROSCOPIC; Urine Mucus Slight /HPF (None Seen); Urine Nitrite NEGATIVE (Negative); Urine Protein 1+ (Negative); Urine Urobilinogen Normal (Normal); Urine WBC >50 /HPF (<5); Urine WBC Clump Many /HPF (None Seen); Urine Yeast (Budding) Few /HPF (None Seen)
[2024-05-05] MEDS ORDERED: ONDANSETRON 4 MG/2 ML VIAL ONE (23:10)
[2024-05-05] MEDS ORDERED: KETOROLAC 30 MG/ML INJ ONE (23:10)
[2024-05-05] MEDS ORDERED: NA CHLORIDE 0.9% 500 ML ONE (23:11)
[2024-05-05 23:29] LABS: Absolute Basophils 0.1 K/uL (0-0.5); Absolute Eosinophils 0.1 K/uL (0-0.5); Absolute Lymphocytes (CBC) 2.7 K/uL (0.7-4.9); Absolute Monocytes 1.1 K/uL (0.1-1.3); Absolute Neutrophil 7.6 K/uL (1.8-8.0); Basophils % 0.7 % (0-1.3); Hematocrit 38.4 % (36.0-45.0); Lymphocytes % 23.6 % (15.3-44.8); MCH 30.1 pg (27.0-35.0); MCHC 33.8 g/dL (32.0-36.0); MCV 89.1 fL (80-100); MPV 8.3 fL (7.6-11.3); Monocytes % 9.4 % (3.3-12.3); Neutrophils % 65.3 % (41.7-73.7); Nucleated Red Blood Cells % 0.1 % (0-0); Platelets 236 thou/uL (152-406); RBC Red Blood Cell Count 4.31 M/uL (3.86-4.86); Red Cell Distribution Width 14.8 % (12.1-15.2)
[2024-05-05 23:38] LABS: Albumin 3.8 g/dL (3.4-5.0); Albumin/Globulin Ratio 1.4 (1.1-1.8); Bilirubin Total 0.4 mg/dL (0.2-1.0); Globulin 2.8 g/dL (2.3-3.5); Protein, Total 6.6 g/dL (6.4-8.2)
--- NOTE | 2024-05-06 02:24 | RAD REPORT ---
EXAM DESCRIPTION: CT ABDOMEN PELVIS WITH IV CONTRAST 05/06/2024 12:46 AM CDT CLINICAL HISTORY: 83 years, Female, Abdominal pain. COMPARISON: CT Abdomen Pelvis 05/24/2020. PROCEDURE: Initial noncontrast axial images through the abdomen and pelvis were generated utilizing 5 mm slight thickness at 5 mm interval reconstruction. Subsequent contrast images of the abdomen and pelvis were performed utilizing 5 mm slight thickness at 5 mm interval reconstruction from the lung bases to the ischial tuberosities after the administration of IV contrast. In addition multiplanar reformats in the coronal and sagittal plane were obtained and reviewed. An individualized dose optimization technique, Automated Exposure Control, was utilized for the perfo rmed procedure. FINDINGS: Lung bases: The lung bases demonstrate to be clear. Mitral annular calcification Liver: The liver demonstrates to be normal. There are probably left hepatic lobe cyst largest one sub capsular lateral segment left hepatic lobe measuring 3.3 x 3 cm on image 6/98. Gallbladder: Surgical clips within the gallbladder fossa corresponding to previous cholecystectomy. T here is prominence of the common bile duct measuring 12.8 mm on image 16/98, although no significant intrahepatic biliary duct dilatation and/or significant filling defect within the common bile duct. Adrenal glands: The adrenal glands demonstrate to be normal. Pancreas: The pancreas demonstrate to be normal. Spleen: The spleen demonstrate to be within normal limits. Kidneys: The kidneys demonstrate normal uptake of contrast media. There is no evidence for nephroli thiasis and/or hydronephrosis. There is 1.1 cm lower pole hyperdense renal cyst on axial image 33/98. GI: Grossly the unopacified stomach, small bowel and large bowel demonstrate to be within normal limi ts. No evidence for bowel dilatation and/or free air. The appendix was not visualized. The left-sided colon/sigmoid colon demonstrates presence of diverticulosis. : The urinary bladder demonstrate was partially distended with wall thickening and minimal mucosal enhancement. Genitalia: The uterus is absent. There are no adnexal masses. Abdominal aorta: The aorta demonstrated presence of minimal atherosclerotic disease extending into th e aortic bifurcation and iliac arteries. Retroperitoneum: There is no retroperitoneal lymphadenopathy. There is no evidence for ascites and/or abnormal fluid collections. Bones: The bones demonstrate to be demineralized. The lumbar spine demonstrate grade 1 spondylolisthe sis with spondylolysis at L4/L5. Soft tissues: The soft tissues demonstrate to be unremarkable. IMPRESSION: Status post cholecystectomy with prominence of the common bile duct measuring 12.8 mm, although no si gnificant intrahepatic biliary duct dilatation and/or significant filling defect within the common bile duct. 1.1 cm lower pole hyperdense renal cyst. No follow-up is recommended. JACR 2017; 264-273, Managem ent of the Incidental Renal Mass on CT, [employer] 2020; 814-848, Bosniak Classification of Cystic Renal Masses, Version 2019. Diverticulosis without evidence for acute diverticulitis. Minimal enhancement of the mucosa of the urinary bladder possibility of cystitis could be of consider ation, correlate with urinalysis. Status post hysterectomy. Grade 1 spondylolisthesis with spondylolysis at L4/L5. Electronically signed by: Eric Allan MD 05/06/2024 12:57 AM CDT RP Due to temporary technical issues with the PACS/[employer] reporting system, reports are being edvon d by the in-house radiologist without review as a courtesy to ensure prompt reporting the interpreting radiologist is fully responsible for the content of the report. Transcribed Date/Time: 05/06/2024 2:24 AM
--- NOTE | 2024-05-06 02:45 | EDPHYS ---
Physician Documentation [facility] Name: Ruthie Smith Age: 83 yrs Sex: Female : 1940 Arrival Date: 05/05/2024 Time: 21:04 Bed 20 Private MD: Zeyad Ma C ED Physician Grey Amaral HPI: 05/05 22:15 This 83 yrs old Female presents to ER via Ambulatory with complaints of cp Urinary Problem. 05/06 22:15 Onset: The symptoms/episode began/occurred gradually, and became worse 2 day(s) ago. cp 22:15 Associated signs and symptoms: Pertinent positives: abdominal pain, dysuria, Pertinent cp negatives: diarrhea, fever, vomiting. Patient reports she has been taking prescribe Cipro with symptoms worsening. Historical: - Allergies: 05/05 21:59 Azithromycin; bm8 21:59 Codeine; bm8 21:59 Levofloxacin; bm8 21:59 Vicodin; bm8 - Home Meds: 21:59 Unable to obtain [Active]; bm8 - PMHx: 21:59 COPD; Hypertension; sepsis-uro; urinary; Thyroid problem; UTI; bm8 - PSHx: 21:59 Appendectomy; Cholecystectomy; Total abdominal hysterectomy; bm8 - Immunization history:: Adult Immunizations up to date. - Infectious Disease History:: Denies. - Social history:: Smoking status: Patient denies any tobacco usage or history of. ROS: 22:20 : Positive for urinary symptoms, Negative for vaginal bleeding, cp 22:20 Constitutional: Negative for body aches, chills, fever, poor PO intake, cp 22:20 Abdomen/GI: Positive for abdominal pain, Exam: 22:25 Head/Face: Normocephalic, atraumatic. cp 22:25 Constitutional: The patient appears in no acute distress, alert, awake, non-toxic, well developed, well nourished, 22:25 Eyes: Periorbital structures: appear normal, Conjunctiva: normal, no exudate, no injection, Sclera: no appreciated abnormality, Lids and lashes: appear normal, bilaterally, 22:25 ENT: External ear(s): are unremarkable, Nose: is normal, Mouth: Lips: moist, Oral mucosa: moist, Posterior pharynx: Airway: no evidence of obstruction, patent, 22:25 Chest/axilla: Inspection: normal, 22:25 Cardiovascular: Rate: normal, Rhythm: regular, Edema: ankle edema, that is mild, JVD: is not appreciated, 22:25 Respiratory: Respirations: normal, no use of accessory muscles, no retractions, labored breathing, is not present, Breath sounds: are clear throughout, no decreased breath sounds, no stridor, no wheezing, 22:25 Abdomen/GI: Inspection: abdomen appears normal, Bowel sounds: active, all quadrants, Palpation: soft, in all quadrants, mild abdominal tenderness, in the suprapubic area, rebound tenderness, is not appreciated, involuntary guarding, is not appreciated, 22:25 Back: CVA tenderness, is absent, 22:25 Neuro: Orientation: to person, place \T\ time. Mentation: is normal, Motor: moves all fours, strength is normal, Sensation: is normal, Vital Signs: 21:57 BP 143 / 70; Pulse 88; Resp 18; Temp 97.3; Pulse Ox 95% ; Weight 90.72 kg; Height 5 ft. bm8 7 in. ; Pain 8/10; 22:29 BP 138 / 50; Pulse 75; Resp 18 S; Temp 97.6; Pulse Ox 99% on R/A; Weight 90.72 kg (R); sa1 Height 5 ft. 7 in. (R); 22:29 Body Mass Index 31.32 (90.72 kg, 170.18 cm) sa1 21:57 Pain Scale: Adult bm8 MDM: 21:47 Medical Screening Exam initiated cp 05/06 02:45 Data reviewed: vital signs, nurses notes, lab test result(s), radiologic studies, CT cp scan, and as a result, I will admit patient. 02:45 Counseling: I had a detailed discussion with the patient and/or guardian regarding the cp historical points, exam findings, and any diagnostic results supporting the discharge/admit diagnosis, lab results, radiology results, the need for further work-up and treatment in the hospital. 02:45 Differential diagnosis: UTI, pyelonephritis, sepsis, kidney stone. I considered the cp following discharge prescriptions or medication management in the emergency department Medications were administered in the Emergency Department. See MAR. Care significantly affected by the following chronic conditions: Hypertension, Chronic Obstructive Pulmonary Disease. Response to treatment: the patient's symptoms have mildly improved after treatment. ED course: VSS. Will admit for IV antibiotics due to outpatient treatment failure. 05/05 22:06 Order name: Urinalysis W/Microscopic; Complete Time: 23:48 cp 05/05 23:48 Interpretation: Reviewed. cp 05/05 22:30 Order name: CBC with Diff; Complete Time: 23:48 cp 05/05 22:30 Order name: CMP; Complete Time: 23:48 cp 05/05 22:30 Order name: Lipase; Complete Time: 23:48 cp 05/05 22:30 Order name: Lactate w/ 2H reflex if indic.; Complete Time: 23:48 cp 05/05 22:42 Order name: Urine Culture EDMS 05/06 02:56 Order name: Basic Metabolic Panel EDMS 05/06 02:56 Order name: Basic Metabolic Panel EDMS 05/06 02:56 Order name: CBC with Automated Diff EDMS 05/06 02:56 Order name: CBC with Automated Diff EDMS 05/05 22:30 Order name: CT Abd/Pelvis- W/WO Contrast cp 05/05 22:30 Order name: IV Saline Lock; Complete Time: 23:08 cp 05/05 22:30 Order name: Labs collected and sent; Complete Time: 23:08 cp 05/05 22:30 Order name: Cath; Complete Time: 23:45 cp Administered Medications: 05/05 23:14 Drug: Ondansetron IVP 4 mg IVP once; over 2 minutes Route: IVP; Site: left wrist; 05/06 00:00 Follow up: Response: No adverse reaction [facility] 05/05 23:14 Drug: NS 0.9% IV 500 ml 500 ml IV at 1 bolus once; to be given as a bolus over 60 cp minutes Volume: 500 ml; Route: IV; Rate: 1 bolus; Site: left hand; 05/06 00:10 Follow up: IV Status: Completed infusion; IV Intake: 500ml [facility] 05/05 23:15 Drug: TORadol - Ketorolac IVP 15 mg IVP once Route: IVP; Site: left wrist; 05/06 00:00 Follow up: Response: No adverse reaction rg5 Disposition: 05/07 19:04 Chart complete. cp Disposition Summary: 05/06/24 02:45 Hospitalization Ordered Notes: Hospitalization Status: Inpatient Admission cp Provider: Gilles Ma cp Condition: Stable cp Problem: new cp Symptoms: have improved cp Bed/Room Type: Standard cp Location: Telemetry/MedSurg (Inpatient)(05/06/24 14:55) sp Room Assignment: 221(05/06/24 14:55) sp Diagnosis - UTI/ Urinary tract infection, site not specified cp Forms: - Medication Reconciliation Form cp - SBAR form cp - Leadership Thank You Letter cp Addendum: 05/09/2024 15:37 Co-signature as Attending Physician, Grey Amaral MD I agree with the assessment and c fisher plan of care. Signatures: Dispatcher [employer] [facility] Grey Amaral MD MD cha Pinkerton, Shawna sp Page, Corey, PA PA cp Garcia, Cindy, RN RN Bryan Silverman RN RN bm8 Marck Butcher RN rg5 Corrections: (The following items were deleted from the chart) 05/06 00:11 05/05 23:49 Abdomen Pelvis W/Wo Con+CT.RAD.BRZ ordered. [facility] 05/06 03:29 02:45 Telemetry/MedSurg (Inpatient) cp cg 03: 02:45 cp cg 14:55 03:29 [facility] ER HOLD cg sp 14:55 03:29 ERHOLD- cg sp 05/07 19:02 05/06 22:25 Constitutional: The patient appears in no acute distress, alert, awake, cp non-toxic, well developed, well nourished, cp 05/07 19:02 05/06 22:25 Head/Face: Normocephalic, atraumatic. cp cp 05/07 19:02 05/06 22:25 Eyes: Periorbital structures: appear normal, Conjunctiva: normal, no cp exudate, no injection, Sclera: no appreciated abnormality, Lids and lashes: appear normal, bilaterally, cp 05/07 19:02 05/06 22:25 ENT: External ear(s): are unremarkable, Nose: is normal, Mouth: Lips: cp moist, Oral mucosa: moist, Posterior pharynx: Airway: no evidence of obstruction, patent, cp 05/07 19:02 05/06 22:25 Chest/axilla: Inspection: normal, cp cp 05/07 19:05/06 22:25 Cardiovascular: Rate: normal, Rhythm: regular, Edema: ankle edema, that is cp mild, JVD: is not appreciated, cp 05/07 18:05/06 22:25 Respiratory: Respirations: normal, no use of accessory muscles, no cp retractions, labored breathing, is not present, Breath sounds: are clear throughout, no decreased breath sounds, no stridor, no wheezing, cp 05/07 18:05/06 22:25 Abdomen/GI: Inspection: abdomen appears normal, Bowel sounds: active, all cp quadrants, Palpation: soft, in all quadrants, mild abdominal tenderness, in the suprapubic area, rebound tenderness, is not appreciated, involuntary guarding, is not appreciated, cp 05/07 18:05/06 22:25 Back: CVA tenderness, is absent, cp cp 05/07 18:05/06 22:25 Neuro: Orientation: to person, place \T\ time. Mentation: is normal, Motor: cp moves all fours, strength is normal, Sensation: is normal, cp
--- NOTE | 2024-05-06 02:45 | ER ---
Nurse's Notes [facility] Name: Ruthie Smith Age: 83 yrs Sex: Female : 1940 Arrival Date: 05/05/2024 Time: 21:04 Bed 20 Private MD: Zeyad Ma C Diagnosis: UTI/ Urinary tract infection, site not specified Presentation: 05/05 21:57 Chief complaint: Patient states: I have painful urination for two days. Coronavirus bm8 screen: At this time, the client does not indicate any symptoms associated with coronavirus-19. Ebola Screen: Patient negative for fever greater than or equal to 101.5 degrees Fahrenheit, and additional compatible Ebola Virus Disease symptoms Patient denies exposure to infectious person. Patient denies travel to an Ebola-affected area in the 21 days before illness onset. No symptoms or risks identified at this time. Initial Sepsis Screen: Does the patient meet any 2 criteria? No. Patient's initial sepsis screen is negative. Does the patient have a suspected source of infection? No. Patient's initial sepsis screen is negative. Risk Assessment: Do you want to hurt yourself or someone else? Patient reports no desire to harm self or others. Onset of symptoms was May 03, 2024 at 08:00. 21:57 Method Of Arrival: Ambulatory bm8 21:57 Acuity: TOLU 3 bm8 Triage Assessment: 21:59 General: Appears in no apparent distress. comfortable, Behavior is calm, cooperative, bm8 appropriate for age. Pain: Complains of pain in groin and suprapubic area Pain currently is 8 out of 10 on a pain scale. Neuro: No deficits noted. Level of Consciousness is awake, alert, obeys commands, Oriented to person, place, time, situation, Appropriate for age. Cardiovascular: Denies chest pain, Capillary refill < 3 seconds in bilateral fingers toes Patient's skin is warm and dry. Respiratory: Airway is patent Respiratory effort is even, unlabored, Respiratory pattern is regular, symmetrical, Breath sounds are clear bilaterally. : Reports burning with urination, pain in suprapubic area with urination, Pain is 8 out of 10 on a pain scale. urinary frequency. Historical: - Allergies: 21:59 Azithromycin; bm8 21:59 Codeine; bm8 21:59 Levofloxacin; bm8 21:59 Vicodin; bm8 - Home Meds: 21:59 Unable to obtain [Active]; bm8 - PMHx: 21:59 COPD; Hypertension; sepsis-uro; urinary; Thyroid problem; UTI; bm8 - PSHx: 21:59 Appendectomy; Cholecystectomy; Total abdominal hysterectomy; bm8 - Immunization history:: Adult Immunizations up to date. - Infectious Disease History:: Denies. - Social history:: Smoking status: Patient denies any tobacco usage or history of. Screenin:45 [facility] ED Fall Risk Assessment (Adult) History of falling in the last 3 months, rg5 including since admission No falls in past 3 months (0 pts) Confusion or Disorientation No (0 pts) Intoxicated or Sedated No (0 pts) Impaired Gait Yes (1 pt) Mobility Assist Device Used Yes (1 pt) Altered Elimination No (0 pt) Score/Fall Risk Level 0 - 2 = Low Risk Oriented to surroundings, Maintained a safe environment, Hourly rounding (assess needs \T\ fall precautionary measures) done. Abuse screen: Denies threats or abuse. Nutritional screening: No deficits noted. Tuberculosis screening: No symptoms or risk factors identified. Assessment: 21:45 General: Appears in no apparent distress. comfortable, Behavior is calm, cooperative, rg5 appropriate for age. 21:45 Pain: Complains of pain in suprapubic area Quality of pain is described as aching. rg5 Neuro: Level of Consciousness is awake, alert, obeys commands, Oriented to person, place, time, situation. Cardiovascular: Denies chest pain, Patient's skin is warm and dry. Respiratory: Airway is patent Trachea midline Respiratory effort is even, unlabored, Respiratory pattern is regular, symmetrical. GI: Abdomen is round non-distended. : Reports burning with urination, pain urgency. EENT: No signs and/or symptoms were reported regarding the EENT system. Derm: Skin is intact, Skin is dry, Skin is normal. Musculoskeletal: Circulation, motion, and sensation intact. Range of motion: intact in all extremities. Vital Signs: 21:57 BP 143 / 70; Pulse 88; Resp 18; Temp 97.3; Pulse Ox 95% ; Weight 90.72 kg; Height 5 ft. bm8 7 in. ; Pain 8/10; 22:29 BP 138 / 50; Pulse 75; Resp 18 S; Temp 97.6; Pulse Ox 99% on R/A; Weight 90.72 kg (R); sa1 Height 5 ft. 7 in. (R); 22:29 Body Mass Index 31.32 (90.72 kg, 170.18 cm) sa1 21:57 Pain Scale: Adult bm8 ED Course: 21:05 Patient arrived in ED. rg4 21:05 Zeyad Ma MD is Private Physician. rg4 21:45 Patient has correct armband on for positive identification. Bed in low position. Call rg5 light in reach. Side rails up X 1. Door closed. Noise minimized. Warm blanket given. 21:45 No provider procedures requiring assistance completed. Inserted saline lock: 22 gauge rg5 in left wrist, using aseptic technique. Blood collected. Flushed with 10 mL NS. 21:46 Grey Hanna PA is PHCP. cp 21:47 Grey Amaral MD is Attending Physician. cp 21:59 Triage completed. bm8 21:59 Arm band placed on right wrist. bm8 22:25 Marck Butcher, MARIO is Primary Nurse. rg5 05/06 00:10 CT Abd/Pelvis- W/WO Contrast In Process Unspecified. EDMS 02:44 Gilles Ma MD is Hospitalizing Provider. cp 03:00 Provided Education on: needs for admit. rg5 03:00 Patient admitted, IV remains in place. intact, No redness/swelling at site. rg5 Administered Medications: 05/05 23:14 Drug: Ondansetron IVP 4 mg IVP once; over 2 minutes Route: IVP; Site: left wrist; 05/06 00:00 Follow up: Response: No adverse reaction rg5 05/05 23:14 Drug: NS 0.9% IV 500 ml 500 ml IV at 1 bolus once; to be given as a bolus over 60 cp minutes Volume: 500 ml; Route: IV; Rate: 1 bolus; Site: left hand; 05/06 00:10 Follow up: IV Status: Completed infusion; IV Intake: 500ml rg5 05/05 23:15 Drug: TORadol - Ketorolac IVP 15 mg IVP once Route: IVP; Site: left wrist; 05/06 00:00 Follow up: Response: No adverse reaction rg5 Medication: 03/28 21:45 VIS not applicable for this client. rg5 Intake: 05/06 00:10 IV: 500ml; Total: 500ml. rg5 Outcome: 02:45 Decision to Hospitalize by Provider. cp 03:00 Admitted to ER Hold. Please see [facility] for further documentation. rg5 03:00 Condition: stable 03:00 Instructed on the need for admit, 19:13 Patient left the ED. rg5 Signatures: Dispatcher [employer] EDMS Grey Hanna PA PA cp Garcia, Rubi rg4 Bryan Summers, RN RN bm8 Marck Butcher, RN RN rg5 Sultan Alyssa sa1
[2024-05-06] MEDS ORDERED: MORPHINE 2 MG/ML SYR IV PRN (02:48)
[2024-05-06] MEDS ORDERED: NA CHLORIDE 0.9% 1,000 ML ONE (05:33)
[2024-05-06] MEDS: NA CHLORIDE 0.9% 1,000 ML IV SCH (05:33)
[2024-05-06 05:50] VITALS: BMI 31.3
[2024-05-06] MEDS ORDERED: CEFTRIAXONE 1000 MG/VIAL ONE (08:47)
[2024-05-06] MEDS ORDERED: ENOXAPARIN 40 MG/0.4 ML SQ ONE (08:47)
[2024-05-06] MEDS ORDERED: NA CHLORIDE 0.9% 50 ML ONE (08:48)
[2024-05-06] MEDS: FLUCONAZOLE 200mg IVPB 200 MG/100 ML BAG IV SCH (08:50)
[2024-05-06] MEDS: ENOXAPARIN 40 MG/0.4 ML SQ SCH (09:00)
[2024-05-06] MEDS: CEFTRIAXONE 1,000 MG in NA CHLORIDE 0.9% 50 ML IVPB SCH ×2 (09:00→21:49)
--- NOTE | 2024-05-06 10:26 | HP ---
Date of Admission: 05/06/2024 Chief Complaint: Burning on urination and pain. History Of Present Illness: This is an 83-year-old female patient, who came to office this week with complaints of burning on urination and frequent urination, and urinalysis at office was abnormal consistent with urinary tract infection and the patient was started on Cipro and urine culture was sent. Her urine culture came back, no growth. Meanwhile, she ends up coming to emergency room last night with suprapubic pain and burning on urination, which was bad enough that she felt like she almost was screaming with burning urination problem, so she came into emergency room. After she was evaluated, she was admitted to the hospital. When I saw her she was still in the emergency room this morning, waiting for her bed to be available. She denies any fever, chills, nausea, vomiting. It is important to note that the patient does have history of recurrent urinary tract infection and she reports that she has appointment to see her urologist that she has been seeing for this problem and this appointment is in next week or so as she reports. Review of Systems: : As mentioned above. All other systems reviewed and negative. Allergies: AZITHROMYCIN, DETAILS UNKNOWN. LEVAQUIN, CAUSING RASH AND ITCHING. CODEINE, CAUSES PALPITATION. Medications: Amlodipine 5 mg daily in the evening, aspirin 81 mg daily, atorvastatin 20 mg daily, levothyroxine 112 mcg daily, prednisone 5 mg daily, Advair Diskus 1 puff 2 times a day, ibandronate 150 mg once a month, nitrofurantoin 50 mg daily, Gemtesa 75 mg daily, vitamin B12 1 mg daily. Past Medical History: Significant for hypothyroidism, hyperlipidemia, hypertension, COPD, gastroesophageal reflux disease, osteoporosis, peripheral neuropathy, depression, thrombocytopenia, obesity, diverticulosis, impaired fasting glucose, peripheral vascular disease, coronary artery disease, chronic kidney disease stage 3A. Also significant for osteoarthritis at multiple sites. Past Surgical History: Significant for cholecystectomy, hysterectomy, removal of left ovary, bladder suspension. Family History: Father , had myocardial infarction and kidney disease. Mother , had heart disease and pneumonia. Brother had prostate cancer. Sister ; had coronary artery disease, diabetes, and kidney disease. Social History: Prior history of smoking not at present time. Use of alcohol: Rarely uses alcohol. Physical Examination: Vital Signs: Temperature 98, pulse 78, respiratory rate 17, blood pressure 135/51, oxygen saturation 96% on room air. Height 5 feet 7 inches, weight 200 pounds. General: Awake, alert, oriented, not in distress. HEENT: Head atraumatic, normocephalic. Conjunctivae nonerythematous. Sclerae white. Mouth, no thrush or edema noted. Ears/Nose, no mass, lesion, discharge noted. Neck: Supple. No JVD, lymph nodes, bruit, thyromegaly noted. Lungs: Bilateral good equal air entry. Clear to auscultation. No rhonchi. No rales. Heart: Normal heart sounds, no murmur or gallop. Abdomen: Soft, bowel sounds normal. No guarding, rigidity, tenderness, mass, hepatosplenomegaly, distention, or bruit noted. Extremities: No leg edema. No calf tenderness. Skin: No rash, ulcer, cellulitis. Lymphatics: No lymph node enlargement in neck, supraclavicular, infraclavicular region. Neuro: No focal neurological deficit. Chest: Unremarkable. External Genitalia: Deferred. Rectal: Deferred. Laboratory Data: WBC 11.6, hemoglobin 13, platelets 236. Sodium 138, potassium 4, chloride 107, bicarb 26, BUN 32, creatinine 1.01, glucose 90. Lactic acid 1.2. Liver function tests unremarkable. Lipase 65. Urinalysis; urine appearance extremely turbid, leukocyte 500, rbc 11 to 20, wbc more than 50, bacteria less than 20, and presence of budding yeast. Impression: 1. Urinary tract infection. 2. Chronic kidney disease stage IIIA. 3. Hypertension. 4. Coronary artery disease. 5. Hyperlipidemia. 6. Peripheral vascular disease. 7. Hypothyroidism. 8. COPD. 9. Gastroesophageal reflux disease. 10. Osteoarthritis, multiple sites. 11. Osteoporosis. 12. Peripheral neuropathy. 13. Diverticulosis. 14. Impaired fasting glucose. Plan: We will go ahead and admit the patient to hospital. The patient is appropriate for observation. We will continue her IV fluid, IV antibiotic which is ceftriaxone. Urine culture was sent. Also fluconazole 200 mg IV daily. We will follow up on culture results and then decide about culture-specific antibiotics. The patient was encouraged to keep her appointment with the urologist for her recurrent urinary tract infection problem. For hypertension, we will continue her antihypertensive medication. Monitor blood pressure. If necessary, adjust medication. For her hypothyroidism, continue levothyroxine and no need for further intervention. For her COPD, no need for any further intervention at this time. For hyperlipidemia, we will continue her statin therapy per order and no need for further intervention. Total time spent 60 minutes including review of last hospital admission record from 01/19/2024, review of emergency room visit record, review of recent outpatient visit record from this week, and performing today's evaluation and management. KRISTIN/BESSY Voice ID: [id number] MTDD
[2024-05-06] MEDS: ATORVASTATIN 20 MG TAB PO SCH (21:47)
[2024-05-06] MEDS: ACETAMINOPHEN 500 MG TAB PO PRN (21:48)
[2024-05-06] MEDS: AMLODIPINE 5 MG TAB PO SCH (21:48)
[2024-05-07] MEDS: LEVOTHYROXINE SOD 0.112 MG TAB PO SCH (05:35)
[2024-05-07 06:58] LABS: Absolute Eosinophils 0.2 K/uL (0-0.5); Absolute Lymphocytes (CBC) 0.6 K/uL (0.7-4.9); Absolute Monocytes 0.6 K/uL (0.1-1.3); Absolute Neutrophil 5.3 K/uL (1.8-8.0); Basophils % 0.6 % (0-1.3); Hematocrit 35.3 % (36.0-45.0); Hemoglobin 11.9 g/dL (12.0-15.0); Lymphocytes % 8.8 % (15.3-44.8); MCH 30.3 pg (27.0-35.0); MCHC 33.6 g/dL (32.0-36.0); MCV 90.3 fL (80-100); MPV 8.4 fL (7.6-11.3); Monocytes % 8.4 % (3.3-12.3); Neutrophils % 79.2 % (41.7-73.7); Nucleated Red Blood Cells % 0.1 % (0-0); Platelets 165 thou/uL (152-406); RBC Red Blood Cell Count 3.91 M/uL (3.86-4.86); Red Cell Distribution Width 14.4 % (12.1-15.2)
[2024-05-07 07:13] LABS: Anion Gap 5.8 mEq/L (5.0-15.0); Potassium 3.8 mEq/L (3.5-5.1)
[2024-05-07] MEDS: ASPIRIN EC 81 MG TAB PO SCH (09:32)
[2024-05-07] MEDS: ENOXAPARIN 40 MG/0.4 ML SQ SCH (09:32)
--- NOTE | 2024-05-07 10:51 | PN ---
Date of Progress Note: 05/07/2024 Subjective: The patient was seen this morning for followup. Her dysuria complaint is better compare d to yesterday. She is having some nausea after she eats and this has been going on for last 2 weeks as she reports. Denies any heartburn, indigestion problem. No abdominal pain. She has some pain i n the back of the neck and all across her back of the shoulder and that is going on from time to time which is nothing new and no radiation to her arms. Physical Examination: HEENT: Unremarkable. Lungs: Clear to auscultation. Heart: Sounds normal. Abdomen: Soft. Bowel sounds normal. No guarding, rigidity, tenderness, distention. Extremities: No leg edema. Laboratory Data: WBC 6.7, hemoglobin 11.9, platelets 165. Sodium 139, potassium 3.8, chloride 111, bicarb 26, BUN 22, creatinine 0.72, glucose 100. Impression: 1. Urinary tract infection. 2. Cervical spondylosis. 3. Anemia, unspecified. Plan: We will go ahead and continue current antibiotic. Urine culture is growing gram-negative rods . Definite identification and sensitivity result pending. Hopefully, it will be available tomorrow. We will continue current antibiotic and antifungal medication and possible discharge to go home tomorrow. I have instructed her to try some heating pad for her neck p melly. KRISTIN/MODL Voice ID: [id number] Report ID: [id number]
[2024-05-08] MEDS: Mupirocin NASAL 2 APPL/1 GM TUBE NAS SCH (09:13)
[2024-05-08] MEDS: Meropenem 1,000 MG in NA CHLORIDE 0.9% 100 ML IV SCH (13:11)
[2024-05-08] MEDS: ONDANSETRON 4 MG/2 ML VIAL IV PRN (13:11)
--- NOTE | 2024-05-08 14:38 | RAD REPORT ---
EXAM: Chest Single View HISTORY: 83 years Female PICC line placement COMPARISON: 02/17/2024 FINDINGS: LUNGS/PLEURA: Low lung volumes accentuates the pulmonary vaculature. No definite acute process. The l eft lung base is not well assessed. CARDIAC/MEDIASTINUM: Magnified by portable technique, but probably within normal limits. UPPER ABDOMEN: No significant abnormality. BONES: No acute abnormality. LINES/TUBES/OTHER: Right subclavian approach PICC with tip overlying the SVC. IMPRESSION: PICC tip in satisfactory position overlying the SVC. Possible edema versus low lung volumes with accentuation of pulmonary vasculature.
[2024-05-08] MEDS: DOCUSATE NA 100 MG CAP PO SCH (20:01)
--- NOTE | 2024-05-08 21:32 | PN ---
Date of Progress Note: 05/08/2024 Subjective: The patient was seen this morning for followup. Her dysuria is better. No nausea, vomi ting. No new complaints or problems reported. Physical Examination: Vital Signs: Reviewed. Last temperature this morning was 100.1 degrees Fahrenheit, blood pressure l ast night was 106/51, pulse 86. HEENT: Unremarkable. Lungs: Clear to auscultation. Heart: Sounds normal. Abdomen: Soft. Bowel sounds normal. No guarding, rigidity, tenderness, distention. Extremities: No leg edema. Laboratory Data: Urine culture results came back as E coli and organism is ESBL. Impression: 1. Urinary tract infection, organism Escherichia coli, extended-spectrum beta-lactamase. 2. Hypothyroidism. Plan: We will go ahead and continue current medical management. We will discontinue ceftriaxone and start the patient on meropenem 1000 mg IV every 12 hours. PICC line was ordered, and Social Service was consulted to make arrangements for home IV antibiotic therapy. Possible discharge to go home to [place]. KRISTIN/MODL Voice ID: [id number] Report ID: [id number]
[2024-05-09 03:00] VITALS: O2SAT 96
[2024-05-09 08:58] VITALS: TEMP 98.4
[2024-05-09 09:30] VITALS: BP 134/64
--- NOTE | 2024-05-09 23:53 | DS ---
Date of Discharge: 05/09/2024 Disposition: Discharged to go home. Physical Examination: HEENT: Unremarkable. Lungs: Clear to auscultation. Heart: Sounds normal. Abdomen: Soft. Bowel sounds normal. No guarding, rigidity, tenderness, distention. Extremities: No leg edema. Discharge Medications And Instructions: Continue all prior home medication except following changes: 1. Stop Cipro. 2. Take meropenem 1000 mg IV every 12 hours for 7 days. Last dose of antibiotic will be on and home health nurse to remove PICC line on 05/17/2024. Home health nurse to assist the patient w ith IV antibiotic therapy, flush PICC line per protocol, and remove PICC line after IV antibiotic the james completed and change PICC line dressing per protocol. The patient to follow up at my office on 05/15/2024. Laboratory Data: Upon admission, sodium 138, potassium 4, chloride 107, bicarb 26, BUN 32, creatinin e 1.01, glucose 90. Lactic acid 1.2. Liver function tests unremarkable. WBC 11.6, hemoglobin 13, p latelets 236. Last chemistry from 05/07/2024, sodium 139, potassium 3.8, chloride 111, bicarb 26, BU N 22, creatinine 0.72, glucose 100. Last CBC from 05/07/2024, WBC 6.7, hemoglobin 11.9, platelets 16 5. Hospital Course: This is an 83-year-old very pleasant female patient, who was admitted to the hospit ia with urinary tract infection problem. Please see dictated H and P for more information. After patient was evaluated in the emergency room, she was admitted to the hospital and she was started o n empiric antibiotic which was ceftriaxone. Urinalysis was abnormal showing leukocyte esterase 500, rbc 11 to 20, wbc more than 50, bacteria less than 20, and presence of budding yeast. The patient wa s also given IV Diflucan since she was admitted to the hospital. Urine culture came back yesterday g rowing E. coli and it was ESBL and once we saw that result, ceftriaxone was discontinued and the brandon ent was started on meropenem. The patient's dysuria and pain have improved. Yesterday, PICC line wa s placed. Chest x-ray was reviewed after PICC line placement and Social Service was consulted and to day she was discharged to go home in stable condition after antibiotic therapy was arranged for home. Final Diagnoses: 1. Urinary tract infection. 2. Chronic kidney disease stage IIIA. 3. Hypertension. 4. Coronary artery disease. 5. Hyperlipidemia. 6. Peripheral vascular disease. 7. Hypothyroidism. 8. COPD. 9. Gastroesophageal reflux disease. 10. Osteoarthritis, multiple sites. 11. Osteoporosis. 12. Peripheral neuropathy. 13. Diverticulosis. 14. Impaired fasting glucose. Total time spent 40 minutes. KRISTIN/MODL Voice ID: [id number] Report ID: [id number]
== END 2024-05-09 11:35 | disposition home or self-care (01) | DRG 690 ==
LOC: ER 21:04 → ERHOLD 05-06 02:52 → 2ND 05-06 18:47
PROVIDERS: ADMIT Internal Medicine; ATTEND Internal Medicine
DX: N39.0 Urinary tract infection, site not specified (principal); Z16.12 Extended spectrum beta lactamase (ESBL) resistance; B96.20 Unspecified Escherichia coli [E. coli] as the cause of diseases classified elsewhere; Z90.49 Acquired absence of other specified parts of digestive tract; Z90.710 Acquired absence of both cervix and uterus; I25.10 Atherosclerotic heart disease of native coronary artery without angina pectoris; I10 Essential (primary) hypertension; I12.9 Hypertensive chronic kidney disease with stage 1 through stage 4 chronic kidney disease, or unspecified chronic kidney disease; N18.31 Chronic kidney disease, stage 3a; J44.9 Chronic obstructive pulmonary disease, unspecified; K21.9 Gastro-esophageal reflux disease without esophagitis; M19.90 Unspecified osteoarthritis, unspecified site; D64.9 Anemia, unspecified; M47.9 Spondylosis, unspecified; E03.9 Hypothyroidism, unspecified
CPT/HCPCS: 36415; 36569; 71045; 74178; 80048; 80053; 81001; 83605; 83690; 85025; 87077; 87086; 87088; 87186; 96361; 96374; 96375; 99285; J0696; J1450; J1650; J2185; J2405; J7030; J7040; Q9967